=== PATIENT | male | born 1955 | race Caucasian/White ===

== ENCOUNTER 2017-03-03 23:05 | Inpatient (IN) | payer SELFPAY ==
[2017-03-03 23:07] VITALS: BP 162/105; PULSE 98; RESP 16; TEMP 37.7; O2SAT 93; BMI 35.6
--- NOTE | 2017-03-03 23:09 | EKG12_ITS ---
Test Reason : ABD PAIN Blood Pressure : / mmHG Vent. Rate : 093 BPM Atrial Rate : 093 BPM P-R Int : 168 ms QRS Dur : 092 ms QT Int : 360 ms P-R-T Axes : 023 -50 045 degrees QTc Int : 447 ms Normal sinus rhythm Left anterior fascicular block Abnormal ECG Confirmed by YIN LONGORIA ([id number]), editorial manager LAYLA BRIAN ([id number] on 03/05/2017 11:34:41 AM Referred By: EMILY Confirmed By:YIN LONGORIA
--- NOTE | 2017-03-03 23:09 | RAD_ITS ---
STUDY: X-RAY CHEST REASON FOR EXAM: Male, 61 years old. Shortness of breath TECHNIQUE: Single AP portable view of the chest. COMPARISON: 09/16/2016. 04/24/2016. FINDINGS: There are superimposed monitor leads. There is very shallow inspiratory level and underpenetration, compression of basilar parenchyma with a linear basilar density the left lung, new since previous exam. There is no demonstrated pleural abnormality. Normal size heart. Normal mediastinum and lily. Normal visualized pulmonary arteries. Normal visualized aortic arch and descending thoracic aorta. There are diffuse degenerative changes of the visualized thoracic spine. There is degenerative osteoarthritis of the bilateral shoulders. Resorption of the distal right clavicle is stable. There is no demonstrated abnormality of the visualized soft tissue structures of the upper abdomen. RAD/Chest 1 View (Portable) IMPRESSION: Atelectasis or pneumonia in the left base exaggerated by low lung volume. Electronically Signed: Lillian Richards MD at 0:24 EST , Service support ,
[2017-03-03 23:10] VITALS: O2SAT 95
--- NOTE | 2017-03-03 23:11 | ED.VISSUMM ---
- ER Visit Summary Date of Service: 03/03/17 Chief Complaint: Fever, abdominal pain, cough History of Present Illness: The patient is a 61 M with multiple comorbidities. I actually saw this patient yesterday. At that time, he was complaining of some mild right flank pain that radiated into his right upper quadrant. The patient was unable to tolerate a CT of his abdomen. His labs are unremarkable. He did have some trace ketones in his urine. The patient was given fluids and analgesics with marked improvement of his symptoms. He was able to ambulate without issue. I did obtain plain films of the spine at that time which showed no acute process. The pain was more radicular and I did feel is likely coming from his back. The patient was treated with stool softeners and antispasmodics. The patient does have a history of chronic low back pain and is on methadone. He also has a history of diabetes. Over the past 24 hours, the patient symptoms worsened. He describes some pain now in his right upper back. He is also had cough with increasing shortness of breath. He did have a fever today and was more lethargic. He states that the pain comes in waves. Physical Examination: Vital signs reviewed General: Well-nourished, well-developed Head: Normocephalic, atraumatic Eyes: Pupils equal and reactive, extraocular muscles intact Neck, supple, no lymphadenopathy Heart: Regular rate and rhythm Respiratory: Diminished in the right base and left base Abdomen: Soft, nontender, nondistended, no peritoneal signs, cannot re-create any pain with deep palpation Back: Nontender Extremities: Nontender, no edema, no cords Skin: Normal color no rash Neuro: Alert and oriented, no focal or lateralizing deficits Test Results: [] Emergency Department Course and Treatment: I cannot re-create any pain on the patient's examination. He now has a fever and has had some increasing lethargy. He does have diminished lung sounds in both bases, left greater than right. The patient was sent for CT of his abdomen which she still cannot tolerate. With fluids and analgesics pain is markedly improved. I have reevaluated his abdomen multiple times and he has no focal tenderness. I did send him for some plain films. There is no evidence of acute obstruction. There is potential mild ileus of the small bowel. He does have significant constipation. His chest x-ray does show pneumonia in the left base. With his fever, cough, and dyspnea I do feel that this is likely the major cause of his symptoms. He is on methadone with underlying constipation. Screening labs were obtained. The patient's blood gas is unremarkable. His lab work does show a mild leukocytosis. Blood cultures were obtained. The patient will be covered with Levaquin. I do for the patient requires admission given his pneumonia and confusion. Patient will be discussed with the hospitalist. Treatment Plan: [] Disposition: Admission Impression: 1. Left lower lobe pneumonia 2. Constipation 3. Abdominal pain This note was generated with [employer] dictation software. It may contain incorrect words, spelling, and punctuation that were not noted in review of the chart prior to signing ED Disposition - Plan for ED Patient: Chief Complaint: Abd Pain Referrals: Luis Starr DO [Primary Care Provider] -
[2017-03-03] MEDS: Acetaminophen 500 MG Tablet 1000 MG PO (23:20)
[2017-03-03] MEDS: 0.9% Normal Saline 1,000 ML 150 ML IV (23:20)
[2017-03-03] MEDS: 0.9% Normal Saline 1,000 ML 999 ML IV (23:23)
[2017-03-03 23:31] LABS: Allen Test POS; Base Excess 2 mmol/L (-2 to +2); Bicarbonate 26.4 mmol/L (22-26); Blood Gas Specimen Type ART; O2 Delivery Device Nasal Can; PO2 68 mmHG (75-100); SITE R Radial; SO2 94 % (95-99); Total Carbon Dioxide 28 mmol/L; pH 7.43 (7.35-7.45)
[2017-03-03 23:37] LABS: Absolute Lymphocyte Count 1.55 X10^3/ul (0.83-4.51); Basophil# 0.03 X10^3/uL; Basophil% 0.2 % (0-1); Eosinophil# 0.09 X10^3/uL; Eosinophils% 0.7 % (0-5); Hemoglobin 16.7 g/dl (13.0-16.5); Lymphocyte # 1.55 X10^3/ul (4.0); Lymphocyte % 12.7 % (19-41); Mean Corp Hgb Conc 36.3 g/gl (32-36); Mean Corpuscular Hgb 34.2 pg (27.0-32.0); Mean Corpuscular Volume 94.3 fL (80-94); Mean Platelet Vol. 11.7 fl (6.2-12.0); Monocyte% 12.3 % (0-10); Neutrophil # 9.01 X10^3/uL (2.7-7.7); Neutrophil % 73.8 % (47-70); Platelet Count 208 K/mm3 (150-450); RBC Distribution Width CV 12.5 % (11.6-14.6); RBC Distribution Width SD 42.2 fl (35.1-43.9); Red Blood Count 4.88 M/mm3 (4.6-6.2); White Blood Count 12.2 K/mm3 (4.4-11.0)
[2017-03-03 23:40] LABS: International Normalized Ratio 1.1; Prothrombin Time (Protime)PT. 13.6 SECONDS (11.7-14.9)
[2017-03-03 23:41] LABS: Partial Thromboplast Time 27.9 Seconds (24.1-36.2)
[2017-03-03 23:47] LABS: POSITIVE COUNT NO; POSITIVE DIFFERENTIAL NO; POSITIVE MORPHOLOGY NO
[2017-03-03] MEDS: HYDROmorphone 1 MG/ML Syringe IV (23:47)
[2017-03-03 23:53] LABS: ALB/GLOB Ratio 0.7 RATIO (0.9-2.4); AST(SGOT) 11 U/L (15-37); Alanine Aminotransfer ALT/SGPT 20 U/L (12-78); Albumin, Serum 3.2 g/dL (3.4-5.0); Alkaline Phosphatase 115 U/L (45-117); Anion Gap 6 (5-15); BUN 17 mg/dL (7-18); BUN/Creat Ratio 17.7 RATIO (10-20); Calcium,Total 9.3 mg/dL (8.5-10.1); Chloride 94 mmol/L (98-107); Creatinine, Serum 0.96 mg/dL (0.70-1.30); EST Glomerular Filtration Rate 84 mL/min (>60); Est Glom Filt Rate - Afr Amer 102 mL/min (>60); Estimated Creatinine Clearance 80.81 ml/min; Globulin 4.5 g/dL (2.2-4.2); Glucose 225 mg/dL (70-110); Protein, Total 7.7 g/dL (6.4-8.2); Sodium Level 129 mmol/L (136-145)
[2017-03-04] VITALS (13 sets, daily range): BP systolic 117–161; BP diastolic 73–102; PULSE 57–90; RESP 12–24; TEMP 36.4–36.8; O2SAT 91–98; BMI 34.4
--- NOTE | 2017-03-04 00:15 | RAD_ITS ---
STUDY: X-RAY - ABDOMEN/PELVIS REASON FOR EXAM: Male, 61 years old. Abdominal pain. TECHNIQUE: 2 upright views of the abdomen. Patient unable to lay down. COMPARISON: Chest x-ray 09/16/2016 FINDINGS: New platelike atelectatic changes left base, compression of basilar parenchyma with shallow intervertebral level. Mild small bowel air distention mid and left abdomen. Retained fecal material in the right colon. There is no demonstrated free abdominal air. Normal soft tissue structures. There are diffuse degenerative changes of the visualized lumbar spine. RAD/Abdomen Single View IMPRESSION: Small bowel ileus suspected. Electronically Signed: Lillian Richards MD at 1:29 EST , Service support ,
[2017-03-04] MEDS: 0.9% Normal Saline 1,000 ML 999 ML IV (01:13)
[2017-03-04 01:29] LABS: Bacteria 0 SEEN /hpf (None Seen); Mucous, Urine 0 SEEN /hpf (<or=2+); White Blood Cells 0 SEEN /hpf (0-5)
[2017-03-04 01:36] LABS: Color, Urine Yellow (Yellow); Glucose, Dipstick 1000 mg/dl (Normal); Ketone-Dipstick 5 mg/dl (Negative); Leukocyte Esterase-Dipstick Negative /ul (Negative); Nitrite-Dipstick Negative (Negative); Occult Blood-Urine 10 /ul (Negative); Protein-Dipstick 100 mg/dl (Negative); Urine Bilirubin Dipstick Negative (Negative); Urine Clarity Sl. Cloudy (Clear); Urine Urobilinogen Normal (Normal)
[2017-03-04 01:55] LABS: Red Blood Cells-Urine 0-5 SEEN /hpf (0-5); Squamous Epithelial Cells - UA 0-5 SEEN /hpf (0-5)
[2017-03-04 03:27] LABS: Reflex Lactate? Y
--- NOTE | 2017-03-04 04:05 | PCM.HP.STD ---
Problem List (1) Pneumonia Status: Acute Qualifiers: Pneumonia type: due to unspecified organism Laterality: left Lung location: lower lobe of lung Qualified Code(s): J18.1 - Lobar pneumonia, unspecified organism (2) Ileus Status: Acute (3) Cardiomegaly Status: Chronic (4) DM type 2 (diabetes mellitus, type 2) Status: Chronic Qualifiers: Diabetes mellitus complication status: with unspecified complications Diabetes mellitus assisted insulin use: with superintendent terminal use Qualified Code(s): E11.8 - Type 2 diabetes mellitus with unspecified complications; Z79.4 - group home (current) use of insulin (5) HTN (hypertension) Status: Chronic Qualifiers: Hypertension type: essential hypertension Qualified Code(s): I10 - Essential (primary) hypertension (6) Tobacco use disorder Status: Chronic (7) Opiate dependence Status: Chronic Qualifiers: Substance use status: with unspecified opioid-induced disorder Qualified Code(s): F11.29 - Opioid dependence with unspecified opioid-induced disorder (8) HLD (hyperlipidemia) Status: Chronic Qualifiers: Hyperlipidemia type: unspecified Qualified Code(s): E78.5 - Hyperlipidemia, unspecified History of Present Illness Date of Admission: 03/04/17 Chief Complaint: Cough, dyspnea, fever, wheezing, abdominal pain The patient is a 61 y/o M w/ PMHx: Cardiomegaly, Obesity, Diabetes mellitus type II, HTN, HLD, Tobacco use, Opiate dependence w/ chronic back pain, Anxiety who presents to the [facility] ED on 03/04/17 w/ history of ongoing increasing cough, weakness, fever and chills, myalgias as well as generalized abdominal discomfort for the last several days. He was seen in the evening prior secondary to abdominal discomfort and at that time following workup was diagnosed with constipation, ileus and given mag citrate with discharge to home; however, his abdominal discomfort continued although noted ongoing flatus and no marked nausea or emesis concurrently. In the emergency room workup included T1 100, heart rate 98, BP initially 162/105--> 134/80, respiratory rate 16, 93% on room air, CBC w/ WBC 12.2, Hgb 16.7, Plts 208 with L shift, normal coags, ABG w/ pH 7.43, bicarb 26.4, O2 saturation 94%, PCO2 40, PO2 68, CMP with sodium 129, chloride 94, glucose 225, lactic acid 2, urinalysis unremarkable, acetone level negative, UA without evidence of acute infection, chest x-ray with left lower lobe infiltrate, KUB with small bowel ileus. In the emergency room patient administered normal saline, Tylenol, Dilaudid, Levaquin. Past Medical History Past Medical History (Chronic Problems): Chronic Problems Cardiomegaly (Chronic) DM type 2 (diabetes mellitus, type 2) (Chronic) HTN (hypertension) (Chronic) Tobacco use disorder (Chronic) Opiate dependence (Chronic) Pericardial effusion (Chronic) HLD (hyperlipidemia) (Chronic) Allergies No Known Allergies Allergy (Verified 03/03/17 23:13) Home Medications: Ambulatory Orders Medication Instructions Recorded Hydrochlorothiazide [Hctz] 25 mg PO DAILY 02/18/14 Insulin Regular, Human [Novolin R] See Protocol SC TIDCM 02/18/15 Propranolol HCl [Inderal (Beta 40 mg PO BID 02/18/15 Laura)] Lisinopril [Zestril] 40 mg PO DAILY 04/23/16 Methadone HCl 30 mg PO Q8H PRN PRN 04/23/16 Nitroglycerin [Nitrostat] 0.4 mg SL PRN PRN 04/23/16 ALPRAZolam [Xanax] 0.5 mg PO BID PRN PRN 09/16/16 Insulin Detemir [Levemir FlexPen] 20 units SC QHS #3 pen 09/17/16 Cyclobenzaprine [Flexeril] 10 mg PO TID PRN #20 tab 03/02/17 Surgical History: - - Back surgery, cholecystectomy, appendectomy. Psychiatric History: Anxiety Lives: Spouse/ Significant Other Smoking Status: Current every day smoker - Approximately one half pack per day. Tobacco Use: Cigarettes Alcohol: None Drugs: None - *Family History Maternal History Items: Diabetes, Hypertension Paternal History Items: Diabetes, Hypertension Review of Systems Constitutional: Reports: Anorexia, Chills, Fever, Malaise, Weakness, Fatigue. Denies: Weight Change HEENT: Reports: Head Aches, Nasal Congestion, Sinus Congestion, Sinus Drainage, Sore Throat Cardiovascular: Denies: Chest Pain, Palpitations Respiratory: Reports: Cough, Shortness of Breath, Shortness of breath at rest, Shortness of breath upon exertion, Sputum production Gastrointestinal: Reports: Abdominal Pain, Constipation. Denies: Nausea, Vomiting Genitourinary: Denies: Dysuria Musculoskeletal: Denies: Joint Pain, Joint Tenderness Skin: Denies: Rash, Wounds Neurological: Denies: Numbness, Tingling, Focal weakness Psychiatric: Denies: Anxiety, Depression, Homicidal Ideations, Suicidal Ideations Hematologic/ Lymphatic: Denies: Easy Bruising, Easy Bleeding VTE Information - Inpt Only VTE Present on Admission: No VTE Mechan Device Prophylaxis: SCD's VTE Pharm Prophylaxis ordered?: Yes Patient Problems: Active and Suspected Problems Pneumonia (Acute) Ileus (Acute) Subjective: Seated upright in the ED chair, NAD, fatigued appearance. Objective: Physical Examination: General: awake, alert, oriented x 3 and cooperative, seated upright in the ED bedside chair, in no apparent distress. Skin: normal color, turgor, no icterus, cyanosis. HEENT: AT/NC, EOMI, PERRLA, dry MM, no carotid bruits or JVD noted. Lungs: Mildly coarse BS BL, R >L, > bases, mild effort, no wheezing. Heart: Regular rate and rhythm; no gallop, rub audible. Abdomen: soft, mild generalized discomfort to palpation, mild to moderately distended, tympanitic, hyperactive HS, difficult to assess HSM given habitus and acute presentation. Extremities: no cyanosis, clubbing, or edema. Neurological: patient awake, alert, oriented x 3; cognitive function intact; pupils equally reactive to light and accomodation; cranial nerves II-XII grossly normal, moving all 4 extremities, no focal deficits, strength moderately to severely globally decreased secondary to acute presentation. Psychiatric: affect appears flat, fatigued, no acute evidence of depressive or anxiety feelings. - Physical Exam Vital Signs Temp Pulse Resp BP Pulse Ox 98.3 F 78 17 134/80 H 91 03/04/17 02:25 03/04/17 02:25 03/04/17 02:25 03/04/17 02:25 03/04/17 02:25 Oxygen Flow Rate 2 Oxygen Delivery Method Nasal Cannula Weight: 240 lb 15.444 oz Body Mass Index (BMI) 35.6 Finger Stick Blood Glucose 240 Laboratory Tests Past 24 Hrs 03/03/17 03/03/17 03/03/17 23:20 23:20 23:20 WBC 12.2 H RBC 4.88 Hgb 16.7 H Hct 46.0 MCV 94.3 H MCH 34.2 H MCHC 36.3 H RDW 12.5 RDW Differential 42.2 Plt Count 208 MPV 11.7 Immature Gran % (Auto) 0.300 Neut % (Auto) 73.8 H Lymph % (Auto) 12.7 L [place]eman % (Auto) 12.3 H Eos % (Auto) 0.7 Baso % (Auto) 0.2 Absolute Neuts (auto) 9.0 H Absolute Lymphs (auto) 1.55 Total Counted Not Reportable PT 13.6 INR 1.1 APTT 27.9 Specimen Type Sample Site pH Bicarbonate Actual POC Total CO2 Base Excess O2 Saturation ABG pCO2 ABG pO2 Bradley Test O2 Delivery Device Liter Flow Blood Gas Notified Whom Sodium 129 L Potassium 4.0 Chloride 94 L Carbon Dioxide 29.0 Anion Gap 6 BUN 17 Creatinine 0.96 Estim Creat Clear Calc 80.81 Est GFR (MDRD) Af Amer 102 Est GFR (MDRD) Non-Af 84 BUN/Creatinine Ratio 17.7 Glucose 225 H Lactic Acid Calcium 9.3 Total Bilirubin 0.60 AST 11 L ALT 20 Alkaline Phosphatase 115 Total Protein 7.7 Albumin 3.2 L Globulin 4.5 H Albumin/Globulin Ratio 0.7 L Urine Color Urine Clarity Urine pH Ur Specific [place] Urine Protein Urine Glucose (UA) Urine Ketones Urine Occult Blood Urine Nitrite Urine Bilirubin Urine Urobilinogen Ur Leukocyte Esterase Urine RBC Urine WBC Ur Squamous Epith Cells Urine Bacteria Urine Mucus Acetone Level 03/03/17 03/03/17 03/03/17 23:20 23:20 23:25 WBC RBC Hgb Hct MCV MCH MCHC RDW RDW Differential Plt Count MPV Immature Gran % (Auto) Neut % (Auto) Lymph % (Auto) [place] % (Auto) Eos % (Auto) Baso % (Auto) Absolute Neuts (auto) Absolute Lymphs (auto) Total Counted PT INR APTT Specimen Type ART Sample Site R Radial pH 7.43 Bicarbonate Actual 26.4 H POC Total CO2 28 Base Excess 2 O2 Saturation 94 L ABG pCO2 40.0 ABG pO2 68 L Bradley Test POS O2 Delivery Device Nasal Can Liter Flow 2.0 Blood Gas Notified Whom ED Sodium Potassium Chloride Carbon Dioxide Anion Gap BUN Creatinine Estim Creat Clear Calc Est GFR (MDRD) Af Amer Est GFR (MDRD) Non-Af BUN/Creatinine Ratio Glucose Lactic Acid 2.0 Calcium Total Bilirubin AST ALT Alkaline Phosphatase Total Protein Albumin Globulin Albumin/Globulin Ratio Urine Color Urine Clarity Urine pH Ur Specific [place] Urine Protein Urine Glucose (UA) Urine Ketones Urine Occult Blood Urine Nitrite Urine Bilirubin Urine Urobilinogen Ur Leukocyte Esterase Urine RBC Urine WBC Ur Squamous Epith Cells Urine Bacteria Urine Mucus Acetone Level NEGATIVE 03/04/17 01:15 WBC RBC Hgb Hct MCV MCH MCHC RDW RDW Differential Plt Count MPV Immature Gran % (Auto) Neut % (Auto) Lymph % (Auto) [place] % (Auto) Eos % (Auto) Baso % (Auto) Absolute Neuts (auto) Absolute Lymphs (auto) Total Counted PT INR APTT Specimen Type Sample Site pH Bicarbonate Actual POC Total CO2 Base Excess O2 Saturation ABG pCO2 ABG pO2 Bradley Test O2 Delivery Device Liter Flow Blood Gas Notified Whom Sodium Potassium Chloride Carbon Dioxide Anion Gap BUN Creatinine Estim Creat Clear Calc Est GFR (MDRD) Af Amer Est GFR (MDRD) Non-Af BUN/Creatinine Ratio Glucose Lactic Acid Calcium Total Bilirubin AST ALT Alkaline Phosphatase Total Protein Albumin Globulin Albumin/Globulin Ratio Urine Color Yellow Urine Clarity Sl. Cloudy Urine pH 6.0 Ur Specific [place] 1.020 Urine Protein 100 H Urine Glucose (UA) 1000 H Urine Ketones 5 H Urine Occult Blood 10 H Urine Nitrite Negative Urine Bilirubin Negative Urine Urobilinogen Normal Ur Leukocyte Esterase Negative Urine RBC 0-5 SEEN Urine WBC 0 SEEN Ur Squamous Epith Cells 0-5 SEEN Urine Bacteria 0 SEEN Urine Mucus 0 SEEN Acetone Level Assessment/Plan Active and Suspected Problems Pneumonia (Acute) Ileus (Acute) The patient is a 61 y/o M w/ PMHx: Cardiomegaly, Obesity, Diabetes mellitus type II, HTN, HLD, Tobacco use, Opiate dependence w/ chronic back pain, Anxiety who presents to the [facility] ED on 03/04/17 w/ history of ongoing increasing cough, weakness, fever and chills, myalgias as well as generalized abdominal discomfort for the last several days. He was seen in the evening prior secondary to abdominal discomfort and at that time following workup was diagnosed with constipation, ileus and given mag citrate with discharge to home. (1) Community Acquired Pneumonia: CXR in the ED w/ LLL infiltrate. Will admit to [facility], maintain on oxygen with wean as tolerated to room air, continue ATC duonebs, PRN albuterol, maintained on IV Rocephin and Azithromycin, HOB, IS parameters w/ pending sputum cultures and urine antigens. Bld cx x 2 obtained in the ED. Will obtain AM oxygenation trial for discharge planning. (2) Abdominal Pain secondary to Ileus: Recent evaluation day prior w/ constipation, ileus, administered mag citrate upon discharge. Repeat KUB w/ evidence of ileus, continue to closely monitor, maintain NPO status with bowel rest with continued aggressive bowel regimen. Advance diet as able. (3) Hypertension: Continue home regimen including hydrochlorothiazide, lisinopril, propranolol, PRN hydralazine. (4) Hyperlipidemia: Not on regimen, defer to outpatient. (5) Diabetes mellitus type II: Hold oral home regimen, continue home insulin regimen, NPO status as noted, accu checks w/ ISS. (6) Tobacco Abuse: Encouraged cessation, inpatient consultation per RT, NR if desired. (7) Chronic Pain Syndrome: Continue home methadone regimen, PRN IV Dilaudid. (8) Obesity: Weight loss and lifestyle changes encouraged. (9) DVT prophylaxis: SCDs, lovenox. Code Visit Inpatient E&M: 51188 Init Hosp L3
[2017-03-04 05:55] LABS: Bedside Glucose 209 mg/dL (70-110)
[2017-03-04 06:02] LABS: Lactic Acid 0.9 mmol/L (0.4-2.0)
[2017-03-04] MEDS: Ceftriaxone 1 GM/50 ML BAG IV (06:03)
[2017-03-04 06:07] LABS: Anion Gap 8 (5-15); BUN 17 mg/dL (7-18); BUN/Creat Ratio 23.3 RATIO (10-20); Calcium,Total 7.8 mg/dL (8.5-10.1); Chloride 99 mmol/L (98-107); Creatinine, Serum 0.73 mg/dL (0.70-1.30); EST Glomerular Filtration Rate 116 mL/min (>60); Est Glom Filt Rate - Afr Amer 140 mL/min (>60); Estimated Creatinine Clearance 106.27 ml/min; Glucose 206 mg/dL (70-110); Potassium 4.3 mmol/L (3.5-5.1); Sodium Level 130 mmol/L (136-145)
[2017-03-04] MEDS: 0.9% Normal Saline 1,000 ML 150 ML IV ×2 (06:07→12:09)
[2017-03-04] MEDS: oxyCODONE 5 MG Tablet 10 MG PO (06:33)
[2017-03-04] MEDS: Magnesium Hydroxide 30 ML UDC PO (06:36)
[2017-03-04] MEDS: Ipratropium/Albuterol Sulfate 3 ML AMPUL.NEB INHALATION ×4 (06:47→23:55)
[2017-03-04 08:23] LABS: Absolute Lymphocyte Count 1.52 X10^3/ul (0.83-4.51); Absolute Neutrophil Count 7.7 X10^3/uL (2.0-7.7); Basophil# 0.04 X10^3/uL; Basophil% 0.4 % (0-1); Eosinophil# 0.08 X10^3/uL; Eosinophils% 0.7 % (0-5); Hematocrit 41.9 % (40-54); Hemoglobin 14.4 g/dl (13.0-16.5); Lymphocyte # 1.52 X10^3/ul (4.0); Lymphocyte % 13.9 % (19-41); Mean Corp Hgb Conc 34.4 g/gl (32-36); Mean Corpuscular Volume 95.9 fL (80-94); Mean Platelet Vol. 11.9 fl (6.2-12.0); Monocyte# 1.61 X10^3/uL; Monocyte% 14.7 % (0-10); Neutrophil # 7.66 X10^3/uL (2.7-7.7); Platelet Count 185 K/mm3 (150-450); RBC Distribution Width CV 12.7 % (11.6-14.6); RBC Distribution Width SD 42.9 fl (35.1-43.9); Red Blood Count 4.37 M/mm3 (4.6-6.2); White Blood Count 10.9 K/mm3 (4.4-11.0)
[2017-03-04 08:32] LABS: Differential Indicated SCAN CRITERIA MET; POSITIVE COUNT NO; POSITIVE DIFFERENTIAL YES; POSITIVE MORPHOLOGY NO
--- NOTE | 2017-03-04 09:09 | CASEMGMT ---
Social Work Note Face to face with the pt and his , Mireille. Introduce self and role at [facility]. The pt reports that he lives with his and denies access issues. Denies access issues and claims to be independent with ADL's. Pt does confirm that he is uninsured. Reports to work part-time and makes about $700/month. Denies that he has ever applied for Medicaid. Educate both the pt and his to the process of applying as well as the fact that Medicaid is retroactive for 30 days once processed from the day the application was submitted. Understanding expressed and provided pt and his with an application to review and complete. Made aware that SW is available if additional needs arise. Pt's PCP is Dr. Luis Starr and his pharmacy of choice is [facility]. No additional discharge needs anticipated. SW to continue to follow and assist as needed. Plan: Home with no anticipated d/c needs. CHRIS PerezW
[2017-03-04] MEDS: HYDROmorphone 1 MG/ML Syringe IV ×2 (09:48→17:55)
[2017-03-04] MEDS: guaiFENesin 1,200 MG Tablet 1200 MG PO ×2 (09:52→21:50)
[2017-03-04] MEDS: Famotidine 20 MG Tablet PO ×2 (09:53→21:50)
[2017-03-04] MEDS: Polyethylene Glycol 3350 17 GM PACKET PO (09:53)
[2017-03-04] MEDS: Enoxaparin 40 MG/0.4 ML Syringe SC (09:53)
[2017-03-04] MEDS: Lisinopril 40 MG Tablet PO (09:53)
[2017-03-04] MEDS: Senna/Docusate Sodium 1 Tablet 2 TABLET PO (09:53)
[2017-03-04] MEDS: Propranolol 40 MG Tablet PO ×2 (09:53→21:50)
[2017-03-04] MEDS: hydroCHLOROthiazide 25 MG Tablet PO (09:53)
--- NOTE | 2017-03-04 10:44 | PCM.PN.HOSP ---
Patient Problems: Active and Suspected Problems Ileus (Acute) Subjective: Abdominal pain improved. Patient having flatus. 2 days. Patient has history of spinal surgeries in 1991 in 1997 up at [place]. Patient is currently seeing a spine doctor, a Dr. Rob, up in [facility]. Patient is still established with him as they previously had resided up in [place]. Vitals/I&O's: Vital Signs Temp Pulse Resp BP Pulse Ox 36.7 C 81 12 137/80 H 95 03/04/17 09:08 03/04/17 09:57 03/04/17 09:57 03/04/17 09:08 03/04/17 09:57 Oxygen Flow Rate 2 Oxygen Delivery Method Room Air Weight: 105.8 kg Body Mass Index (BMI) 34.4 Intake and Output for Last 24 Hours 03/02/17 03/03/17 03/04/17 23:59 23:59 23:59 Intake Total 97 / 97 Output Total 0 / 0 Balance 97 / 97 General: Alert, Cooperative, No apparent distress HEENT: Atraumatic, Normocephalic Neck: No Nodes, Thyroid Normal Size and Texture Lungs: Clear to auscultation, Normal air movement, No rhonchi, No wheeze Cardiovascular: Regular rate, Regular Rhythm, Normal S1, Normal S2 Abdomen: Non Tender, Non-Distended, Hypoactive Bowel Sounds, Obese Extremities: No edema, No Calf Tenderness Skin: No rashes, No breakdown Musculoskeletal: - - No spinal point tenderness. Patient did have some reproducible paraspinal tenderness on the right and left in the lumbar region. Neurological: Motor Exam 5/5 strength throughout, Muscle tone normal, Sensory exam intact to light touch and pain Psych/Mental Status: Normal Affect, Appropriate, Anxious Laboratory Results 03/04/17 05:34: Lactic Acid 0.9 03/04/17 05:34: Sodium 130 L, Potassium 4.3, Chloride 99, Carbon Dioxide 23.0, Anion Gap 8, BUN 17, Creatinine 0.73, Estim Creat Clear Calc 106.27, Est GFR (MDRD) Af Amer 140, Est GFR (MDRD) Non-Af 116, BUN/Creatinine Ratio 23.3 H, Glucose 206 H, Calcium 7.8 L, Magnesium 2.0 03/04/17 05:34: Hemoglobin A1c Pending 03/04/17 05:34: WBC 10.9, RBC 4.37 L, Hgb 14.4, Hct 41.9, MCV 95.9 H, MCH 33.0 H, MCHC 34.4, RDW 12.7, RDW Differential 42.9, Plt Count 185, MPV 11.9, Immature Gran % (Auto) 0.300, Neut % (Auto) 70.0, Lymph % (Auto) 13.9 L, [place] % (Auto) 14.7 H, Eos % (Auto) 0.7, Baso % (Auto) 0.4, Absolute Neuts (auto) 7.7, Absolute Lymphs (auto) 1.52, Total Counted Not Reportable, Differential Comment COMMENT 03/04/17 05:51: POC Glucose 209 H Current Medications Acetaminophen (Tylenol) 650 mg PO Q4H PRN PRN PRN Reason: FEVER Acetaminophen (Tylenol) 650 mg PO Q6H PRN PRN PRN Reason: Mild Pain (scale 0-3)/T>100.7 Al Hydroxide/Mg Hydroxide (Mylanta Ii) 30 ml PO Q6H PRN PRN PRN Reason: Gastric burning Albuterol Sulfate (Ventolin Aerosols) 2.5 mg INHALATION Q2H PRN PRN PRN Reason: SHORTNESS OF BREATH Albuterol/Ipratropium (Duoneb) 3 ml INHALATION Q4H.RT [facility] Last Admin: 03/04/17 06:47 Dose: 3 ml Alprazolam (Xanax) 0.5 mg PO BID PRN PRN PRN Reason: ANXIETY Bisacodyl (Dulcolax) 5 mg PO DAILY PRN PRN PRN Reason: Constipation Cyclobenzaprine HCl (Flexeril) 10 mg PO TID PRN PRN PRN Reason: MUSCLE SPASM Dextrose (D50w Syringe) 0 gm IV X1 PRN; Protocol PRN Reason: Hypoglycemia Enoxaparin Sodium (Lovenox) 40 mg SC DAILY@1000 [facility] Last Admin: 03/04/17 09:53 Dose: 40 mg Famotidine (Pepcid) 20 mg PO BID [facility] Last Admin: 03/04/17 09:53 Dose: 20 mg Glucagon () 1 mg IM .X1 PRN PRN Reason: Hypoglycemia Guaifenesin (Mucinex) 1,200 mg PO BID [facility] Last Admin: 03/04/17 09:52 Dose: 1,200 mg Hydrochlorothiazide (Hctz) 25 mg PO DAILY [facility] Last Admin: 03/04/17 09:53 Dose: 25 mg Hydromorphone HCl (Dilaudid) 1 mg IV Q4H PRN PRN PRN Reason: SEVERE PAIN (6-10/10) Last Admin: 03/04/17 09:48 Dose: 1 mg Sodium Chloride () 1,000 mls @ 150 mls/hr IV .Q6H40M [facility] Last Admin: 03/04/17 06:07 Dose: 150 mls/hr Insulin Aspart (Novolog Flexpen ([facility])) 0 units SC Q6 JORGE PRN Reason: Protocol Last Admin: 03/04/17 06:08 Dose: 2 units Insulin Detemir (Levemir ([facility])) 20 units SC QHS [facility] Lisinopril (Zestril) 40 mg PO DAILY [facility] Last Admin: 03/04/17 09:53 Dose: 40 mg Magnesium Hydroxide (Milk Of Magnesia) 30 ml PO DAILY PRN PRN PRN Reason: Constipation Last Admin: 03/04/17 06:36 Dose: 30 ml Methadone HCl () 30 mg PO Q8H PRN PRN PRN Reason: PAIN Nicotine (Nicoderm Cq ([facility])) 14 mg TRANSDERM. DAILY [facility] Last Admin: 03/04/17 09:58 Dose: Not Given Ondansetron HCl (Zofran) 4 mg IV Q8H PRN PRN PRN Reason: NAUSEA Oxycodone HCl (Oxyir) 10 mg PO Q4H PRN PRN PRN Reason: Moderate Pain (pain scale 4-5) Last Admin: 03/04/17 06:33 Dose: 10 mg Polyethylene Glycol (Miralax) 17 gm PO DAILY [facility] Last Admin: 03/04/17 09:53 Dose: 17 gm Promethazine HCl (Phenergan (Ll)) 12.5 mg IV Q6H PRN PRN PRN Reason: NAUSEA/VOMITING Propranolol HCl (Inderal) 40 mg PO BID [facility] Last Admin: 03/04/17 09:53 Dose: 40 mg Senna/Docusate Sodium (Senokot-S, Milady-Colace) 2 tablet PO DAILY [facility] Last Admin: 03/04/17 09:53 Dose: 2 tablet Sodium Chloride () 5 - 30 ml IV UD PRN PRN Reason: SALINE FLUSH Assessment/Plan Active and Suspected Problems Ileus (Acute) 1. Ileus Clinically improved at this time. We will advance diet and see how the patient responds. 2. Acute on chronic back pain Seems more musculoskeletal. Patient is on chronic pain management with methadone through Dr. Rob in [facility]. Patient states that he is unable to lie flat even for a CAT scan. Told patient that he does not not have any red flags to me at this time and unfortunately, this facility, we do have the backup to do conscious sedation for an MRI. Being that my threshold for something very severe in his back is low at this time feel it is necessary he be transferred to another facility for spinal surgery or neurosurgery. We will await physical and occupational therapy evaluation to see if patient would require additional therapy needs. I reviewed the patient's OARRS, and it appears that he has been receiving his methadone through Drs. Juan Daniel Gillespie and Jeffrey Gould. 3. Left lower lobe atelectasis I personally reviewed the chest x-ray did not see any obvious infiltrate. Atelectasis may explain his fever as well. The patient overall looks well. 4. Diabetes mellitus type 2 Continue with Levemir. 5. DVT prophylaxis with Lovenox. Code Visit Inpatient E&M: [id number] [facility] Hosp L3
--- NOTE | 2017-03-04 10:54 | PN_ITS ---
Patient Problems: Active and Suspected Problems Ileus (Acute) Subjective: Abdominal pain improved. Patient having flatus. 2 days. Patient has history of spinal surgeries in 1991 in 1997 up at [place]. Patient is currently seeing a spine doctor, a Dr. Rob, up in [facility]. Patient is still established with him as they previously had resided up in [place]. Vitals/I&O's: Vital Signs Temp Pulse Resp BP Pulse Ox 36.7 C 81 12 137/80 H 95 03/04/17 09:08 03/04/17 09:57 03/04/17 09:57 03/04/17 09:08 03/04/17 09:57 Oxygen Flow Rate 2 Oxygen Delivery Method Room Air Weight: 105.8 kg Body Mass Index (BMI) 34.4 Intake and Output for Last 24 Hours 03/02/17 03/03/17 03/04/17 23:59 23:59 23:59 Intake Total 97 / 97 Output Total 0 / 0 Balance 97 / 97 General: Alert, Cooperative, No apparent distress HEENT: Atraumatic, Normocephalic Neck: No Nodes, Thyroid Normal Size and Texture Lungs: Clear to auscultation, Normal air movement, No rhonchi, No wheeze Cardiovascular: Regular rate, Regular Rhythm, Normal S1, Normal S2 Abdomen: Non Tender, Non-Distended, Hypoactive Bowel Sounds, Obese Extremities: No edema, No Calf Tenderness Skin: No rashes, No breakdown Musculoskeletal: - - No spinal point tenderness. Patient did have some reproducible paraspinal tenderness on the right and left in the lumbar region. Neurological: Motor Exam 5/5 strength throughout, Muscle tone normal, Sensory exam intact to light touch and pain Psych/Mental Status: Normal Affect, Appropriate, Anxious Laboratory Results 03/04/17 05:34: Lactic Acid 0.9 03/04/17 05:34: Sodium 130 L, Potassium 4.3, Chloride 99, Carbon Dioxide 23.0, Anion Gap 8, BUN 17, Creatinine 0.73, Estim Creat Clear Calc 106.27, Est GFR ( MDRD) Af Amer 140, Est GFR (MDRD) Non-Af 116, BUN/Creatinine Ratio 23.3 H, Glucose 206 H, Calcium 7.8 L, Magnesium 2.0 03/04/17 05:34: Hemoglobin A1c Pending 03/04/17 05:34: WBC 10.9, RBC 4.37 L, Hgb 14.4, Hct 41.9, MCV 95.9 H, MCH 33.0 H , MCHC 34.4, RDW 12.7, RDW Differential 42.9, Plt Count 185, MPV 11.9, Immature Gran % (Auto) 0.300, Neut % (Auto) 70.0, Lymph % (Auto) 13.9 L, [place] % (Auto) 14.7 H, Eos % (Auto) 0.7, Baso % (Auto) 0.4, Absolute Neuts (auto) 7.7, Absolute Lymphs (auto) 1.52, Total Counted Not Reportable, Differential Comment COMMENT 03/04/17 05:51: POC Glucose 209 H Current Medications Acetaminophen (Tylenol) 650 mg PO Q4H PRN PRN PRN Reason: FEVER Acetaminophen (Tylenol) 650 mg PO Q6H PRN PRN PRN Reason: Mild Pain (scale 0-3)/T>100.7 Al Hydroxide/Mg Hydroxide (Mylanta Ii) 30 ml PO Q6H PRN PRN PRN Reason: Gastric burning Albuterol Sulfate (Ventolin Aerosols) 2.5 mg INHALATION Q2H PRN PRN PRN Reason: SHORTNESS OF BREATH Albuterol/Ipratropium (Duoneb) 3 ml INHALATION Q4H.RT [facility] Last Admin: 03/04/17 06:47 Dose: 3 ml Alprazolam (Xanax) 0.5 mg PO BID PRN PRN PRN Reason: ANXIETY Bisacodyl (Dulcolax) 5 mg PO DAILY PRN PRN PRN Reason: Constipation Cyclobenzaprine HCl (Flexeril) 10 mg PO TID PRN PRN PRN Reason: MUSCLE SPASM Dextrose (D50w Syringe) 0 gm IV X1 PRN; Protocol PRN Reason: Hypoglycemia Enoxaparin Sodium (Lovenox) 40 mg SC DAILY@1000 [facility] Last Admin: 03/04/17 09:53 Dose: 40 mg Famotidine (Pepcid) 20 mg PO BID [facility] Last Admin: 03/04/17 09:53 Dose: 20 mg Glucagon () 1 mg IM .X1 PRN PRN Reason: Hypoglycemia Guaifenesin (Mucinex) 1,200 mg PO BID [facility] Last Admin: 03/04/17 09:52 Dose: 1,200 mg Hydrochlorothiazide (Hctz) 25 mg PO DAILY [facility] Last Admin: 03/04/17 09:53 Dose: 25 mg Hydromorphone HCl (Dilaudid) 1 mg IV Q4H PRN PRN PRN Reason: SEVERE PAIN (6-10/10) Last Admin: 03/04/17 09:48 Dose: 1 mg Sodium Chloride () 1,000 mls @ 150 mls/hr IV .Q6H40M [facility] Last Admin: 03/04/17 06:07 Dose: 150 mls/hr Insulin Aspart (Novolog Flexpen ([facility])) 0 units SC Q6 JORGE PRN Reason: Protocol Last Admin: 03/04/17 06:08 Dose: 2 units Insulin Detemir (Levemir ([facility])) 20 units SC QHS [facility] Lisinopril (Zestril) 40 mg PO DAILY [facility] Last Admin: 03/04/17 09:53 Dose: 40 mg Magnesium Hydroxide (Milk Of Magnesia) 30 ml PO DAILY PRN PRN PRN Reason: Constipation Last Admin: 03/04/17 06:36 Dose: 30 ml Methadone HCl () 30 mg PO Q8H PRN PRN PRN Reason: PAIN Nicotine (Nicoderm Cq ([facility])) 14 mg TRANSDERM. DAILY [facility] Last Admin: 03/04/17 09:58 Dose: Not Given Ondansetron HCl (Zofran) 4 mg IV Q8H PRN PRN PRN Reason: NAUSEA Oxycodone HCl (Oxyir) 10 mg PO Q4H PRN PRN PRN Reason: Moderate Pain (pain scale 4-5) Last Admin: 03/04/17 06:33 Dose: 10 mg Polyethylene Glycol (Miralax) 17 gm PO DAILY [facility] Last Admin: 03/04/17 09:53 Dose: 17 gm Promethazine HCl (Phenergan ([facility])) 12.5 mg IV Q6H PRN PRN PRN Reason: NAUSEA/VOMITING Propranolol HCl (Inderal) 40 mg PO BID [facility] Last Admin: 03/04/17 09:53 Dose: 40 mg Senna/Docusate Sodium (Senokot-S, Milady-Colace) 2 tablet PO DAILY [facility] Last Admin: 03/04/17 09:53 Dose: 2 tablet Sodium Chloride () 5 - 30 ml IV UD PRN PRN Reason: SALINE FLUSH Assessment/Plan Active and Suspected Problems Ileus (Acute) 1. Ileus Clinically improved at this time. We will advance diet and see how the patient responds. 2. Acute on chronic back pain Seems more musculoskeletal. Patient is on chronic pain management with methadone through Dr. Rob in [facility]. Patient states that he is unable to lie flat even for a CAT scan. Told patient that he does not not have any red flags to me at this time and unfortunately, this facility, we do have the backup to do conscious sedation for an MRI. Being that my threshold for something very severe in his back is low at this time feel it is necessary he be transferred to another facility for spinal surgery or neurosurgery. We will await physical and occupational therapy evaluation to see if patient would require additional therapy needs. I reviewed the patient's OARRS, and it appears that he has been receiving his methadone through Drs. Juan Daniel Gillespie and Jeffrey Gould. 3. Left lower lobe atelectasis I personally reviewed the chest x-ray did not see any obvious infiltrate. Atelectasis may explain his fever as well. The patient overall looks well. 4. Diabetes mellitus type 2 Continue with Levemir. 5. DVT prophylaxis with Lovenox. Code Visit Inpatient E&M: [id number] [facility] Hosp L3
[2017-03-04 10:58] LABS: Hemoglobin A1c 11.7 % (4.2-6.3)
[2017-03-04] MEDS: Methadone 10 MG Tablet 30 MG PO ×2 (12:08→23:11)
[2017-03-04 12:16] LABS: Bedside Glucose 230 mg/dL (70-110)
[2017-03-04] MEDS: ALPRAZolam 0.5 MG Tablet 1 MG PO (18:14)
[2017-03-04 18:26] LABS: Bedside Glucose 282 mg/dL (70-110)
[2017-03-04] MEDS: Bisacodyl 5 MG Tablet PO (21:50)
[2017-03-04 22:46] LABS: Bedside Glucose 207 mg/dL (70-110)
[2017-03-05] VITALS (12 sets, daily range): BP systolic 88–156; BP diastolic 63–93; PULSE 73–95; RESP 16–20; TEMP 36.4–37.2; O2SAT 94–97
[2017-03-05] MEDS: HYDROmorphone 1 MG/ML Syringe IV ×3 (00:18→20:48)
[2017-03-05] MEDS: 0.9% NaCl Peripheral Flush Adult/Peds IV ×3 (00:18→20:49)
[2017-03-05 00:30] LABS: Bedside Glucose 215 mg/dL (70-110)
[2017-03-05] MEDS: Ipratropium/Albuterol Sulfate 3 ML AMPUL.NEB INHALATION ×6 (04:10→23:27)
[2017-03-05] MEDS: oxyCODONE 5 MG Tablet 10 MG PO ×3 (05:48→18:15)
[2017-03-05] MEDS: Acetaminophen 325 MG Tablet 650 MG PO (05:48)
[2017-03-05 07:01] LABS: Bedside Glucose 153 mg/dL (70-110)
[2017-03-05] MEDS: Methadone 10 MG Tablet 30 MG PO ×2 (07:57→17:05)
[2017-03-05] MEDS: Polyethylene Glycol 3350 17 GM PACKET PO (08:21)
[2017-03-05] MEDS: guaiFENesin 1,200 MG Tablet 1200 MG PO ×2 (08:21→20:49)
[2017-03-05] MEDS: Propranolol 40 MG Tablet PO ×2 (08:21→20:49)
[2017-03-05] MEDS: Senna/Docusate Sodium 1 Tablet 2 TABLET PO (08:21)
[2017-03-05] MEDS: hydroCHLOROthiazide 25 MG Tablet PO (08:21)
[2017-03-05] MEDS: ALPRAZolam 0.5 MG Tablet PO ×2 (08:22→18:15)
[2017-03-05] MEDS: Famotidine 20 MG Tablet PO ×2 (08:22→20:49)
[2017-03-05] MEDS: Enoxaparin 40 MG/0.4 ML Syringe SC (08:22)
--- NOTE | 2017-03-05 11:03 | PCM.RX.CS ---
Subjective/Objective Date: 03/05/17 Time: 11:03 Antibiotic: Vancomycin Type of Consult: New start Indications for Therapy: Bacteremia Labs: Sodium 130 mmol/L (136-145) L 03/04/17 05:34 Potassium 4.3 mmol/L (3.5-5.1) 03/04/17 05:34 Chloride 99 mmol/L (98-107) 03/04/17 05:34 Carbon Dioxide 23.0 mmol/L (21.0-32.0) 03/04/17 05:34 Anion Gap 8 (5-15) 03/04/17 05:34 BUN 17 mg/dL (7-18) 03/04/17 05:34 Creatinine 0.73 mg/dL (0.70-1.30) 03/04/17 05:34 Est GFR (MDRD) Af Amer 140 mL/min (>60) 03/04/17 05:34 Est GFR (MDRD) Non-Af 116 mL/min (>60) 03/04/17 05:34 BUN/Creatinine Ratio 23.3 RATIO (10-20) H 03/04/17 05:34 Glucose 206 mg/dL (70-110) H 03/04/17 05:34 Pharmacy Plan for Drug Dosing: Goal vancomycin trough 10-15 mcg/mL. Patient Received vancomycin 1500mg IV x1, recommend to continue 1250mg IV q12h for est trough 12 mcg/mL. Check prior to 5th dose. Pharmacy Service will continue to monitor and adjust dosing as required. Pharmacy to order these labs: Trough - Vancomycin Labs to be done on (date): 03/07/17 Labs to be done (time): 08:00
--- NOTE | 2017-03-05 11:15 | CASEMGMT ---
Social Work Note Face to face with pt and . 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 State that they have already requested a new SSC and will work with the [employer] regarding the license. Offer to assist with Medicaid application and both the pt and his decline at this time. Both made aware that SW is available throughout stay if they change there mind and would like assistance with completing the application. Will continue to follow and assist with discharge planning. Plan: Home with no anticipated d/c needs. CHRIS PerezW
[2017-03-05] MEDS: Glucerna Shake 120 ML LIQUID PO ×4 (11:49→20:48)
[2017-03-05] MEDS: Lisinopril 40 MG Tablet PO (11:49)
[2017-03-05 12:10] LABS: Bedside Glucose 230 mg/dL (70-110)
--- NOTE | 2017-03-05 16:28 | PCM.PN.HOSP ---
Patient Problems: Active and Suspected Problems Ileus (Acute) Subjective: Still a lot of pain in his back. Patient said he was unable to do the MRI despite the medications this due to his back. Patient is not a bowel movements but denies any urinary incontinence. Patient still having the saddle anesthesia. Vitals/I&O's: Vital Signs Temp Pulse Resp BP Pulse Ox 36.4 C L 94 16 134/69 H 94 03/05/17 11:40 03/05/17 11:40 03/05/17 11:40 03/05/17 11:40 03/05/17 11:40 Oxygen Flow Rate 2 Oxygen Delivery Method Room Air Weight: 105.8 kg Body Mass Index (BMI) 34.4 Intake and Output for Last 24 Hours 03/03/17 03/04/17 03/05/17 23:59 23:59 23:59 Intake Total 1106 / 1106 950 / 950 Output Total 0 / 0 Balance 1106 / 1106 950 / 950 General: Alert, Cooperative, No apparent distress, - - Uncomfortable. Afebrile. Abdomen: Non-Distended, - - Normal rectal tone. Extremities: No edema, No Calf Tenderness Musculoskeletal: - - left paraspinal tenderness Psych/Mental Status: Normal Affect, Appropriate Microbiology Past 72 Hours 03/04/17 06:45 Mucosa - Nasopharyngeal Respiratory Panel (PCR) - Final Laboratory Results 03/04/17 18:02: POC Glucose 282 H 03/04/17 21:31: POC Glucose 207 H 03/05/17 00:11: POC Glucose 215 H 03/05/17 05:52: POC Glucose 153 H 03/05/17 11:56: POC Glucose 230 H Current Medications Acetaminophen (Tylenol) 650 mg PO Q4H PRN PRN PRN Reason: FEVER Last Admin: 03/05/17 05:48 Dose: 650 mg Acetaminophen (Tylenol) 650 mg PO Q6H PRN PRN PRN Reason: Mild Pain (scale 0-3)/T>100.7 Al Hydroxide/Mg Hydroxide (Mylanta Ii) 30 ml PO Q6H PRN PRN PRN Reason: Gastric burning Albuterol Sulfate (Ventolin Aerosols) 2.5 mg INHALATION Q2H PRN PRN PRN Reason: SHORTNESS OF BREATH Albuterol/Ipratropium (Duoneb) 3 ml INHALATION Q4H.RT [facility] Last Admin: 03/05/17 15:10 Dose: 3 ml Alprazolam (Xanax) 0.5 mg PO BID PRN PRN PRN Reason: ANXIETY Last Admin: 03/05/17 08:22 Dose: 0.5 mg Bisacodyl (Dulcolax) 5 mg PO DAILY PRN PRN PRN Reason: Constipation Last Admin: 03/04/17 21:50 Dose: 5 mg Cyclobenzaprine HCl (Flexeril) 10 mg PO TID PRN PRN PRN Reason: MUSCLE SPASM Last Admin: 03/05/17 14:54 Dose: 10 mg Dextrose (D50w Syringe) 0 gm IV X1 PRN; Protocol PRN Reason: Hypoglycemia Enoxaparin Sodium (Lovenox) 40 mg SC DAILY@1000 [facility] Last Admin: 03/05/17 08:22 Dose: 40 mg Famotidine (Pepcid) 20 mg PO BID [facility] Last Admin: 03/05/17 08:22 Dose: 20 mg Glucagon () 1 mg IM .X1 PRN PRN Reason: Hypoglycemia Guaifenesin (Mucinex) 1,200 mg PO BID [facility] Last Admin: 03/05/17 08:21 Dose: 1,200 mg Hydrochlorothiazide (Hctz) 25 mg PO DAILY [facility] Last Admin: 03/05/17 08:21 Dose: 25 mg Hydromorphone HCl (Dilaudid) 1 mg IV Q4H PRN PRN PRN Reason: SEVERE PAIN (6-10/10) Last Admin: 03/05/17 14:57 Dose: 1 mg Vancomycin HCl 1,250 mg/ (Sodium Chloride) 275 mls @ 183.333 mls/hr IV Q12H [facility] Insulin Aspart (Novolog Flexpen ([facility])) 0 units SC Q6 JORGE PRN Reason: Protocol Last Admin: 03/05/17 11:57 Dose: 3 units Insulin Detemir (Levemir ([facility])) 20 units SC QHS [facility] Last Admin: 03/04/17 21:52 Dose: 20 units Lisinopril (Zestril) 40 mg PO DAILY [facility] Last Admin: 03/05/17 11:49 Dose: 40 mg Magnesium Hydroxide (Milk Of Magnesia) 30 ml PO DAILY PRN PRN PRN Reason: Constipation Last Admin: 03/04/17 06:36 Dose: 30 ml Methadone HCl () 30 mg PO Q8H PRN PRN PRN Reason: PAIN Last Admin: 03/05/17 07:57 Dose: 30 mg Nicotine (Nicoderm Cq ([facility])) 14 mg TRANSDERM. DAILY [facility] Last Admin: 03/05/17 08:22 Dose: 14 mg Nutritional Formula (Lactose Free) (Glucerna Shake) 120 ml PO 4X/DAY [facility] Last Admin: 03/05/17 14:54 Dose: 120 ml Ondansetron HCl (Zofran) 4 mg IV Q8H PRN PRN PRN Reason: NAUSEA Oxycodone HCl (Oxyir) 10 mg PO Q4H PRN PRN PRN Reason: Moderate Pain (pain scale 4-5) Last Admin: 03/05/17 11:53 Dose: 10 mg Polyethylene Glycol (Miralax) 17 gm PO DAILY [facility] Last Admin: 03/05/17 08:21 Dose: 17 gm Promethazine HCl (Phenergan ([facility])) 12.5 mg IV Q6H PRN PRN PRN Reason: NAUSEA/VOMITING Propranolol HCl (Inderal) 40 mg PO BID [facility] Last Admin: 03/05/17 08:21 Dose: 40 mg Senna/Docusate Sodium (Senokot-S, Milady-Colace) 2 tablet PO DAILY [facility] Last Admin: 03/05/17 08:21 Dose: 2 tablet Sodium Chloride () 5 - 30 ml IV UD PRN PRN Reason: SALINE FLUSH Last Admin: 03/05/17 14:56 Dose: 10 ml Assessment/Plan Active and Suspected Problems Ileus (Acute) 1. Ileus Clinically improved at this time. 2. Acute on chronic back pain Seems more musculoskeletal. Patient is on chronic pain management with methadone through Dr. Rob in [facility]. Patient states that he is unable to lie flat even for a CAT scan. Told patient that he does not not have any red flags to me at this time and unfortunately, this facility, we do have the backup to do conscious sedation for an MRI. Being that my threshold for something very severe in his back is low at this time feel it is necessary he be transferred to another facility for spinal surgery or neurosurgery. We will await physical and occupational therapy evaluation to see if patient would require additional therapy needs. I reviewed the patient's OARRS, and it appears that he has been receiving his methadone through Drs. Juan Daniel Gillespie and Jeffrey Gould. Patient unable to tolerate MRI. We do not have conscious sedation for an MRI here. Patient has normal rectal tone and no urinary incontinence. Short course of oxycodone plus Flexeril. 3. Left lower lobe atelectasis I personally reviewed the chest x-ray did not see any obvious infiltrate. Atelectasis may explain his fever as well. The patient overall looks well. 4. Diabetes mellitus type 2 Continue with Levemir. 5. DVT prophylaxis with Lovenox.
--- NOTE | 2017-03-05 16:34 | PN_ITS ---
Patient Problems: Active and Suspected Problems Ileus (Acute) Subjective: Still a lot of pain in his back. Patient said he was unable to do the MRI despite the medications this due to his back. Patient is not a bowel movements but denies any urinary incontinence. Patient still having the saddle anesthesia. Vitals/I&O's: Vital Signs Temp Pulse Resp BP Pulse Ox 36.4 C L 94 16 134/69 H 94 03/05/17 11:40 03/05/17 11:40 03/05/17 11:40 03/05/17 11:40 03/05/17 11:40 Oxygen Flow Rate 2 Oxygen Delivery Method Room Air Weight: 105.8 kg Body Mass Index (BMI) 34.4 Intake and Output for Last 24 Hours 03/03/17 03/04/17 03/05/17 23:59 23:59 23:59 Intake Total 1106 / 1106 950 / 950 Output Total 0 / 0 Balance 1106 / 1106 950 / 950 General: Alert, Cooperative, No apparent distress, - - Uncomfortable. Afebrile. Abdomen: Non-Distended, - - Normal rectal tone. Extremities: No edema, No Calf Tenderness Musculoskeletal: - - left paraspinal tenderness Psych/Mental Status: Normal Affect, Appropriate Microbiology Past 72 Hours 03/04/17 06:45 Mucosa - Nasopharyngeal Respiratory Panel (PCR) - Final Laboratory Results 03/04/17 18:02: POC Glucose 282 H 03/04/17 21:31: POC Glucose 207 H 03/05/17 00:11: POC Glucose 215 H 03/05/17 05:52: POC Glucose 153 H 03/05/17 11:56: POC Glucose 230 H Current Medications Acetaminophen (Tylenol) 650 mg PO Q4H PRN PRN PRN Reason: FEVER Last Admin: 03/05/17 05:48 Dose: 650 mg Acetaminophen (Tylenol) 650 mg PO Q6H PRN PRN PRN Reason: Mild Pain (scale 0-3)/T>100.7 Al Hydroxide/Mg Hydroxide (Mylanta Ii) 30 ml PO Q6H PRN PRN PRN Reason: Gastric burning Albuterol Sulfate (Ventolin Aerosols) 2.5 mg INHALATION Q2H PRN PRN PRN Reason: SHORTNESS OF BREATH Albuterol/Ipratropium (Duoneb) 3 ml INHALATION Q4H.RT J[facility]GE Last Admin: 03/05/17 15:10 Dose: 3 ml Alprazolam (Xanax) 0.5 mg PO BID PRN PRN PRN Reason: ANXIETY Last Admin: 03/05/17 08:22 Dose: 0.5 mg Bisacodyl (Dulcolax) 5 mg PO DAILY PRN PRN PRN Reason: Constipation Last Admin: 03/04/17 21:50 Dose: 5 mg Cyclobenzaprine HCl (Flexeril) 10 mg PO TID PRN PRN PRN Reason: MUSCLE SPASM Last Admin: 03/05/17 14:54 Dose: 10 mg Dextrose (D50w Syringe) 0 gm IV X1 PRN; Protocol PRN Reason: Hypoglycemia Enoxaparin Sodium (Lovenox) 40 mg SC DAILY@1000 [facility] Last Admin: 03/05/17 08:22 Dose: 40 mg Famotidine (Pepcid) 20 mg PO BID [facility] Last Admin: 03/05/17 08:22 Dose: 20 mg Glucagon () 1 mg IM .X1 PRN PRN Reason: Hypoglycemia Guaifenesin (Mucinex) 1,200 mg PO BID [facility] Last Admin: 03/05/17 08:21 Dose: 1,200 mg Hydrochlorothiazide (Hctz) 25 mg PO DAILY [facility] Last Admin: 03/05/17 08:21 Dose: 25 mg Hydromorphone HCl (Dilaudid) 1 mg IV Q4H PRN PRN PRN Reason: SEVERE PAIN (6-10/10) Last Admin: 03/05/17 14:57 Dose: 1 mg Vancomycin HCl 1,250 mg/ (Sodium Chloride) 275 mls @ 183.333 mls/hr IV Q12H [facility] Insulin Aspart (Novolog Flexpen (Bkc)) 0 units SC Q6 JORGE PRN Reason: Protocol Last Admin: 03/05/17 11:57 Dose: 3 units Insulin Detemir (Levemir (Bkc)) 20 units SC QHS [facility] Last Admin: 03/04/17 21:52 Dose: 20 units Lisinopril (Zestril) 40 mg PO DAILY [facility] Last Admin: 03/05/17 11:49 Dose: 40 mg Magnesium Hydroxide (Milk Of Magnesia) 30 ml PO DAILY PRN PRN PRN Reason: Constipation Last Admin: 03/04/17 06:36 Dose: 30 ml Methadone HCl () 30 mg PO Q8H PRN PRN PRN Reason: PAIN Last Admin: 03/05/17 07:57 Dose: 30 mg Nicotine (Nicoderm Cq (Pbkc)) 14 mg TRANSDERM. DAILY [facility] Last Admin: 03/05/17 08:22 Dose: 14 mg Nutritional Formula (Lactose Free) (Glucerna Shake) 120 ml PO 4X/DAY [facility] Last Admin: 03/05/17 14:54 Dose: 120 ml Ondansetron HCl (Zofran) 4 mg IV Q8H PRN PRN PRN Reason: NAUSEA Oxycodone HCl (Oxyir) 10 mg PO Q4H PRN PRN PRN Reason: Moderate Pain (pain scale 4-5) Last Admin: 03/05/17 11:53 Dose: 10 mg Polyethylene Glycol (Miralax) 17 gm PO DAILY [facility] Last Admin: 03/05/17 08:21 Dose: 17 gm Promethazine HCl (Phenergan (Ll)) 12.5 mg IV Q6H PRN PRN PRN Reason: NAUSEA/VOMITING Propranolol HCl (Inderal) 40 mg PO BID [facility] Last Admin: 03/05/17 08:21 Dose: 40 mg Senna/Docusate Sodium (Senokot-S, Milady-Colace) 2 tablet PO DAILY [facility] Last Admin: 03/05/17 08:21 Dose: 2 tablet Sodium Chloride () 5 - 30 ml IV UD PRN PRN Reason: SALINE FLUSH Last Admin: 03/05/17 14:56 Dose: 10 ml Assessment/Plan Active and Suspected Problems Ileus (Acute) 1. Ileus Clinically improved at this time. 2. Acute on chronic back pain Seems more musculoskeletal. Patient is on chronic pain management with methadone through Dr. Rob in [facility]. Patient states that he is unable to lie flat even for a CAT scan. Told patient that he does not not have any red flags to me at this time and unfortunately, this facility, we do have the backup to do conscious sedation for an MRI. Being that my threshold for something very severe in his back is low at this time feel it is necessary he be transferred to another facility for spinal surgery or neurosurgery. We will await physical and occupational therapy evaluation to see if patient would require additional therapy needs. I reviewed the patient's OARRS, and it appears that he has been receiving his methadone through Drs. Juan Daniel Gillespie and Jeffrey Gould. Patient unable to tolerate MRI. We do not have conscious sedation for an MRI here. Patient has normal rectal tone and no urinary incontinence. Short course of oxycodone plus Flexeril. 3. Left lower lobe atelectasis I personally reviewed the chest x-ray did not see any obvious infiltrate. Atelectasis may explain his fever as well. The patient overall looks well. 4. Diabetes mellitus type 2 Continue with Levemir. 5. DVT prophylaxis with Lovenox.
[2017-03-05 17:16] LABS: Bedside Glucose 298 mg/dL (70-110)
[2017-03-05 21:06] LABS: Bedside Glucose 288 mg/dL (70-110)
[2017-03-06] VITALS (12 sets, daily range): BP systolic 145–186; BP diastolic 73–112; PULSE 79–89; RESP 16–21; TEMP 36.5–36.8; O2SAT 92–98
[2017-03-06] MEDS: oxyCODONE 5 MG Tablet 10 MG PO ×4 (00:41→20:19)
[2017-03-06] MEDS: 0.9% NaCl Peripheral Flush Adult/Peds IV ×6 (00:42→23:37)
[2017-03-06 01:01] LABS: Bedside Glucose 433 mg/dL (70-110)
[2017-03-06] MEDS: HYDROmorphone 1 MG/ML Syringe IV ×3 (01:52→23:37)
[2017-03-06] MEDS: Ipratropium/Albuterol Sulfate 3 ML AMPUL.NEB INHALATION ×6 (02:57→23:05)
[2017-03-06] MEDS: Methadone 10 MG Tablet 30 MG PO ×2 (05:55→16:43)
[2017-03-06 06:02] LABS: Absolute Lymphocyte Count 1.81 X10^3/ul (0.83-4.51); Absolute Neutrophil Count 4.8 X10^3/uL (2.0-7.7); Basophil# 0.04 X10^3/uL; Basophil% 0.5 % (0-1); Eosinophil# 0.17 X10^3/uL; Eosinophils% 2.1 % (0-5); Hematocrit 42.8 % (40-54); Hemoglobin 14.9 g/dl (13.0-16.5); Lymphocyte # 1.81 X10^3/ul (4.0); Lymphocyte % 21.9 % (19-41); Mean Corp Hgb Conc 34.8 g/gl (32-36); Mean Corpuscular Hgb 32.9 pg (27.0-32.0); Mean Corpuscular Volume 94.5 fL (80-94); Mean Platelet Vol. 11.5 fl (6.2-12.0); Monocyte# 1.41 X10^3/uL; Neutrophil # 4.83 X10^3/uL (2.7-7.7); Neutrophil % 58.4 % (47-70); Platelet Count 229 K/mm3 (150-450); RBC Distribution Width CV 12.4 % (11.6-14.6); RBC Distribution Width SD 41.9 fl (35.1-43.9); Red Blood Count 4.53 M/mm3 (4.6-6.2); White Blood Count 8.3 K/mm3 (4.4-11.0)
[2017-03-06 06:04] LABS: POSITIVE COUNT NO; POSITIVE DIFFERENTIAL NO; POSITIVE MORPHOLOGY NO
[2017-03-06 06:06] LABS: Bedside Glucose 184 mg/dL (70-110)
[2017-03-06 06:12] LABS: Anion Gap 9 (5-15); BUN 14 mg/dL (7-18); BUN/Creat Ratio 18.7 RATIO (10-20); Calcium,Total 9.2 mg/dL (8.5-10.1); Chloride 94 mmol/L (98-107); Creatinine, Serum 0.75 mg/dL (0.70-1.30); EST Glomerular Filtration Rate 113 mL/min (>60); Est Glom Filt Rate - Afr Amer 136 mL/min (>60); Estimated Creatinine Clearance 103.43 ml/min; Glucose 177 mg/dL (70-110); Sodium Level 132 mmol/L (136-145)
[2017-03-06] MEDS: Glucerna Shake 120 ML LIQUID PO ×4 (08:13→23:36)
[2017-03-06] MEDS: Bisacodyl 5 MG Tablet PO (08:14)
--- NOTE | 2017-03-06 09:42 | CT_ITS ---
STUDY: CT LUMBAR SPINE WITH CONTRAST REASON FOR EXAM: Male, 61 years old. Back pain. Bacteremia. RADIATION DOSAGE (If Supplied By Facility): CTDIvol = ( 29.29 ) mGy, DLP = ( 836.16 ) mGycm TECHNIQUE: The patient was scanned in a multi detector CT scanner. High resolution transaxial imaging was performed following the intravenous administration of 100 ml of Isovue 300 contrast material. Images were obtained from T12 to S1 level. Sagittal and coronal images were reconstructed. Individualized dose optimization techniques were used for this CT. COMPARISON: None FINDINGS: Normal lumbar lordosis. There is no substantial scoliosis. Grade 1 anterior listhesis of L5 on S1 without spondylolysis. Normal vertebrae of the lumbar spine. L1-2: Mild degree of disc space narrowing. Mild degree of facet hypertrophy. Mild anterior spondylosis. L2-3: Moderate degree of disc space narrowing with disc degeneration. Minimal retrolisthesis of L2 on L3. Posterior spondylosis along the posterior right side of the L2 vertebra causing minimal deformity of the thecal sac and mild compression of the exiting nerve root at that level. L3-4: Mild degree of disc space narrowing. Facet joint osteoarthritis and hypertrophy. Central posterior spondylosis causing deformity of thecal sac and mild central canal stenosis. Mild bilateral neural foraminal stenosis worse on the right side. L4-5: Spondylosis. Facet joint osteoarthritis with hypertrophy. Minimal anterior listhesis of L4 on L5. L5-S1: Marked degree of disc space narrowing. Facet joint osteoarthritis. No evidence of spinal stenosis. Normal visualized paraspinous soft tissue structures. CT/Spine Lumbar WITH Contrast IMPRESSION: Multilevel degenerative changes, as described above. Electronically Signed: Ruslan Odell MD at 12:30 EST Tel [phone], Service support ,
--- NOTE | 2017-03-06 09:48 | PN_ITS ---
Patient Problems: Active and Suspected Problems Bacteremia (Acute) Acute exacerbation of chronic low back pain (Acute) Ileus (Acute) Subjective: Still with back pain.states his spasms are longer. Vitals/I&O's: Vital Signs Temp Pulse Resp BP Pulse Ox 36.5 C L 84 16 158/79 H 95 03/06/17 08:02 03/06/17 08:02 03/06/17 08:02 03/06/17 08:02 03/06/17 08:02 Oxygen Flow Rate 2 Oxygen Delivery Method Room Air Weight: 105.8 kg Body Mass Index (BMI) 34.4 Intake and Output for Last 24 Hours 03/04/17 03/05/17 03/06/17 23:59 23:59 23:59 Intake Total 1106 / 1106 950 / 950 2067 Output Total 0 / 0 Balance 1106 / 1106 950 / 950 2067 General: Alert, Cooperative, No apparent distress HEENT: Atraumatic, Normocephalic Neck: No Nodes, Thyroid Normal Size and Texture Lungs: Clear to auscultation, Normal air movement, No rhonchi, No wheeze Cardiovascular: Regular rate, Regular Rhythm, Normal S1, Normal S2, No murmurs Abdomen: Bowel Sounds Present, Soft, Non Tender, Non-Distended, No Hepato- splenomegaly Extremities: No edema, No Calf Tenderness Skin: No rashes, No breakdown Musculoskeletal: No Tenderness to Palpation of Joints or Extremities, No Muscle Wasting Psych/Mental Status: Normal Affect, Appropriate Microbiology Past 72 Hours 03/04/17 06:45 Mucosa - Nasopharyngeal Respiratory Panel (PCR) - Final Laboratory Results 03/05/17 11:56: POC Glucose 230 H 03/05/17 17:02: POC Glucose 298 H 03/05/17 20:44: POC Glucose 288 H 03/06/17 00:36: POC Glucose 433 H 03/06/17 05:30: WBC 8.3, RBC 4.53 L, Hgb 14.9, Hct 42.8, MCV 94.5 H, MCH 32.9 H , MCHC 34.8, RDW 12.4, RDW Differential 41.9, Plt Count 229, MPV 11.5, Immature Gran % (Auto) 0.100, Neut % (Auto) 58.4, Lymph % (Auto) 21.9, Owen % (Auto) 17.0 H, Eos % (Auto) 2.1, Baso % (Auto) 0.5, Absolute Neuts (auto) 4.8, Absolute Lymphs (auto) 1.81, Total Counted Not Reportable 03/06/17 05:30: Sodium 132 L, Potassium 4.0, Chloride 94 L, Carbon Dioxide 29.0 , Anion Gap 9, BUN 14, Creatinine 0.75, Estim Creat Clear Calc 103.43, Est GFR ( MDRD) Af Amer 136, Est GFR (MDRD) Non-Af 113, BUN/Creatinine Ratio 18.7, Glucose 177 H, Calcium 9.2 03/06/17 05:54: POC Glucose 184 H Current Medications Acetaminophen (Tylenol) 650 mg PO Q4H PRN PRN PRN Reason: FEVER Last Admin: 03/05/17 05:48 Dose: 650 mg Acetaminophen (Tylenol) 650 mg PO Q6H PRN PRN PRN Reason: Mild Pain (scale 0-3)/T>100.7 Al Hydroxide/Mg Hydroxide (Mylanta Ii) 30 ml PO Q6H PRN PRN PRN Reason: Gastric burning Albuterol Sulfate (Ventolin Aerosols) 2.5 mg INHALATION Q2H PRN PRN PRN Reason: SHORTNESS OF BREATH Albuterol/Ipratropium (Duoneb) 3 ml INHALATION Q4H.RT [facility] Last Admin: 03/06/17 06:48 Dose: 3 ml Alprazolam (Xanax) 0.5 mg PO BID PRN PRN PRN Reason: ANXIETY Last Admin: 03/05/17 18:15 Dose: 0.5 mg Bisacodyl (Dulcolax) 5 mg PO DAILY PRN PRN PRN Reason: Constipation Last Admin: 03/06/17 08:14 Dose: 5 mg Cyclobenzaprine HCl (Flexeril) 10 mg PO TID PRN PRN PRN Reason: MUSCLE SPASM Last Admin: 03/06/17 05:55 Dose: 10 mg Dextrose (D50w Syringe) 0 gm IV X1 PRN; Protocol PRN Reason: Hypoglycemia Enoxaparin Sodium (Lovenox) 40 mg SC DAILY@1000 [facility] Last Admin: 03/05/17 08:22 Dose: 40 mg Famotidine (Pepcid) 20 mg PO BID [facility] Last Admin: 03/05/17 20:49 Dose: 20 mg Glucagon () 1 mg IM .X1 PRN PRN Reason: Hypoglycemia Guaifenesin (Mucinex) 1,200 mg PO BID [facility] Last Admin: 03/05/17 20:49 Dose: 1,200 mg Hydrochlorothiazide (Hctz) 25 mg PO DAILY [facility] Last Admin: 03/05/17 08:21 Dose: 25 mg Hydromorphone HCl (Dilaudid) 1 mg IV Q4H PRN PRN PRN Reason: SEVERE PAIN (6-10/10) Last Admin: 03/06/17 01:52 Dose: 1 mg Vancomycin HCl 1,250 mg/ (Sodium Chloride) 275 mls @ 183.333 mls/hr IV Q12H [facility] Last Admin: 03/06/17 08:19 Dose: 183.333 mls/hr Insulin Aspart (Novolog Flexpen (Bkc)) 0 units SC Q6 [facility]OR[facility] PRN Reason: Protocol Last Admin: 03/06/17 05:55 Dose: 1 units Insulin Detemir (Levemir (Bkc)) 20 units SC QHS [facility] Last Admin: 03/05/17 20:49 Dose: 20 units Lisinopril (Zestril) 40 mg PO DAILY [facility] Last Admin: 03/05/17 11:49 Dose: 40 mg Magnesium Hydroxide (Milk Of Magnesia) 30 ml PO DAILY PRN PRN PRN Reason: Constipation Last Admin: 03/04/17 06:36 Dose: 30 ml Methadone HCl () 30 mg PO Q8H PRN PRN PRN Reason: PAIN Last Admin: 03/06/17 05:55 Dose: 30 mg Nicotine (Nicoderm Cq (Pbkc)) 14 mg TRANSDERM. DAILY [facility] Last Admin: 03/05/17 08:22 Dose: 14 mg Nutritional Formula (Lactose Free) (Glucerna Shake) 120 ml PO 4X/DAY [facility] Last Admin: 03/06/17 08:13 Dose: 120 ml Ondansetron HCl (Zofran) 4 mg IV Q8H PRN PRN PRN Reason: NAUSEA Oxycodone HCl (Oxyir) 10 mg PO Q4H PRN PRN PRN Reason: Moderate Pain (pain scale 4-5) Last Admin: 03/06/17 08:14 Dose: 10 mg Polyethylene Glycol (Miralax) 17 gm PO DAILY [facility] Last Admin: 03/05/17 08:21 Dose: 17 gm Promethazine HCl (Phenergan (Ll)) 12.5 mg IV Q6H PRN PRN PRN Reason: NAUSEA/VOMITING Propranolol HCl (Inderal) 40 mg PO BID [facility] Last Admin: 03/05/17 20:49 Dose: 40 mg Senna/Docusate Sodium (Senokot-S, Milady-Colace) 2 tablet PO DAILY [facility] Last Admin: 03/05/17 08:21 Dose: 2 tablet Sodium Chloride () 5 - 30 ml IV UD PRN PRN Reason: SALINE FLUSH Last Admin: 03/06/17 08:15 Dose: 10 ml Assessment/Plan Active and Suspected Problems Bacteremia (Acute) Acute exacerbation of chronic low back pain (Acute) Ileus (Acute) 1. Bactemia: + alpha hemolytic strep. consult ID. await repeat BCx 2. Ileus Clinically improved at this time. 3. Acute on chronic back pain Seems more musculoskeletal. Patient is on chronic pain management with methadone through Dr. Rob in [facility]. Patient states that he is unable to lie flat even for a CAT scan. Told patient that he does not not have any red flags to me at this time and unfortunately, this facility, we do have the backup to do conscious sedation for an MRI. Being that my threshold for something very severe in his back is low at this time feel it is necessary he be transferred to another facility for spinal surgery or neurosurgery. We will await physical and occupational therapy evaluation to see if patient would require additional therapy needs. I reviewed the patient's OARRS, and it appears that he has been receiving his methadone through Drs. Juan Daniel Gillespie and Jeffrey Gould. Patient unable to tolerate MRI. We do not have conscious sedation for an MRI here. Patient has normal rectal tone and no urinary incontinence. Short course of oxycodone plus Flexeril. will check CT spine. Request records from Dr. Gillespie. 4. Left lower lobe atelectasis I personally reviewed the chest x-ray did not see any obvious infiltrate. Atelectasis may explain his fever as well. The patient overall looks well. 5. Diabetes mellitus type 2 Continue with Levemir. 6. DVT prophylaxis with Lovenox. Code Visit Inpatient E&M: [id number] [facility] L[facility]
[2017-03-06] MEDS: guaiFENesin 1,200 MG Tablet 1200 MG PO ×2 (10:16→23:36)
[2017-03-06] MEDS: Enoxaparin 40 MG/0.4 ML Syringe SC (10:16)
[2017-03-06] MEDS: Famotidine 20 MG Tablet PO ×2 (10:16→23:36)
[2017-03-06] MEDS: Polyethylene Glycol 3350 17 GM PACKET PO (10:16)
[2017-03-06] MEDS: hydroCHLOROthiazide 25 MG Tablet PO (10:16)
[2017-03-06] MEDS: Lisinopril 40 MG Tablet PO (10:17)
[2017-03-06] MEDS: Senna/Docusate Sodium 1 Tablet 2 TABLET PO (10:17)
[2017-03-06] MEDS: Propranolol 40 MG Tablet PO ×2 (10:18→23:36)
[2017-03-06] MEDS: ALPRAZolam 0.5 MG Tablet PO ×2 (10:23→10:24)
[2017-03-06 10:49] LABS: Erythrocyte Sedimentation Rate 62 mm/hr (0-20)
[2017-03-06 12:11] LABS: Bedside Glucose 264 mg/dL (70-110)
[2017-03-06] MEDS: Fleet Enema 1 ML RECTAL (13:59)
[2017-03-06 16:32] LABS: Bedside Glucose 328 mg/dL (70-110)
--- NOTE | 2017-03-06 16:38 | ECHOCS_ITS ---
Reason For Study: Chest Pain Procedure This was a 2D Doppler, Color Flow transthoracic echocardiogram. Exam performed portable in patient room. Left Ventricle Moderate concentric left ventricular hypertrophy. The estimated ejection fraction is 65 %. Stage 1 diastolic dysfunction. No regional wall motion abnormalities noted. Right Ventricle Normal size and thickness. Normal systolic function. Atria Normal left atrium. Normal right atrium. Normal atrial septum. Mitral Valve The mitral valve is structurally normal. No prolapse or stenosis seen. Trivial mitral valve insufficiency. Tricuspid Valve Normal tricuspid valve. Trivial tricuspid valve insufficiency. Right ventricular systolic pressure estimated to be 28 mmHg. Aortic Valve Normal aortic valve. Trisinus/trileaflet aortic valve. Pulmonic Valve Normal pulmonic valve. Great Vessels Normal aortic root. Normal arch. Normal inferior vena cava. Inferior vena cava collapse with sniff. Pericardium/Pleural No pericardial effusion. MMode/2D Measurements & Calculations LVIDd: 4.2 cm IVSd: 1.5 cm LVOT diam: 2.0 cm LVIDs: 2.4 cm LVPWd: 1.4 cm LVOT area: 3.2 cm2 FS: 43.2 % Ao root diam: 3.9 cm LAV(MOD-bp): 67.7 ml LA A4 area: 18.8 cm2 LA dimension: 4.0 cm LAV(MOD-bp) Indexed: 30.7 ml/m2 LAV(MOD-sp2): 68.5 ml LAV(MOD-sp4): 58.0 ml RA A4 area: 17.9 cm2 Time Measurements MV dec time: 0.19 sec Doppler Measurements & Calculations MV E max anton: 95.1 cm/sec Lat Peak E' Anton: 11.2 cm/sec Med Peak E' Anton: 6.5 cm/sec MV A max anton: 100.4 cm/sec E/E' lat: 8.5 E/E' med: 14.6 MV E/A: 0.95 MV V2 max: 110.2 cm/sec MV P1/2t max anton: 110.2 cm/sec Ao V2 max: 98.8 cm/sec MV max P.9 mmHg MV P1/2t: 66.4 msec Ao max P.9 mmHg MV V2 mean: 63.1 cm/sec MV dec slope: 486.0 cm/sec2 Ao V2 mean: 67.7 cm/sec MV mean P.9 mmHg MVA(P1/2t): 3.3 cm2 Ao mean P.0 mmHg MV V2 VTI: 27.0 cm Ao V2 VTI: 22.1 cm MVA(VTI): 2.3 cm2 SHAE(I,D): 2.8 cm2 SHAE(V,D): 2.6 cm2 LV V1 max: 81.4 cm/sec SV(LVOT): 62.1 ml PA V2 max: 78.2 cm/sec LV V1 max P.6 mmHg LV V1 mean P.5 mmHg LV V1 mean: 57.0 cm/sec LV V1 VTI: 19.4 cm TR max anton: 238.9 cm/sec TR max P.8 mmHg Interpretation Summary Moderate concentric left ventricular hypertrophy. The estimated ejection fraction is 65 %. Stage 1 diastolic dysfunction. Trivial mitral valve insufficiency. Trivial tricuspid valve insufficiency. Right ventricular systolic pressure estimated to be 28 mmHg. Compared to echo report dated 09/17/2016, no appreciable changes noted. Ordering Physician: Ricky Cevallos Referring Physician: Luis Starr Performed By: Josue Selby RCS
--- NOTE | 2017-03-06 16:39 | PCM.HP.ID ---
Problem List (1) Bacteremia Status: Acute Reason for Consult: strep in blood Consulted by: Dr. Blanco History of Present Illness: The patient is a 61 year old M with h/o lumbar fusion, presented with several days of severe lower back pain (stabbing in nature, radiating down RLE below knee, worse with movement). Sx associated with fever, chills, cough, SOB, and chest pain. No recent abx. Had dental pain and cracked tooth over the weekend when sx started. No other new joint pain. Admitted, on levaquin/ceftriaxone, abx changed to vanc due to (+) bcx. No other hardware in body. Spine hardware was removed years ago. Full ROS performed and neg except as noted above. - Medical History Past Medical History (Chronic Problems): Chronic Problems Cardiomegaly (Chronic) DM type 2 (diabetes mellitus, type 2) (Chronic) HTN (hypertension) (Chronic) Tobacco use disorder (Chronic) Opiate dependence (Chronic) Pericardial effusion (Chronic) HLD (hyperlipidemia) (Chronic) Allergies/Adverse Reactions: Allergies No Known Allergies Allergy (Verified 03/03/17 23:13) Home Medications: Ambulatory Orders Medication Instructions Recorded Hydrochlorothiazide [Hctz] 25 mg PO DAILY 02/18/14 Insulin Regular, Human [Novolin R] See Protocol SC TIDCM 02/18/15 Propranolol HCl [Inderal (Beta 40 mg PO BID 02/18/15 Laura)] Lisinopril [Zestril] 40 mg PO DAILY 04/23/16 Methadone HCl 30 mg PO Q8H PRN PRN 04/23/16 Nitroglycerin [Nitrostat] 0.4 mg SL PRN PRN 04/23/16 ALPRAZolam [Xanax] 0.5 mg PO BID PRN PRN 09/16/16 Insulin Detemir [Levemir FlexPen] 20 units SC QHS #3 pen 09/17/16 Cyclobenzaprine [Flexeril] 10 mg PO TID PRN #20 tab 03/02/17 - Social History Tobacco Use: cigarettes Vital Signs Temp Pulse Resp BP Pulse Ox 98.2 F 80 20 H 145/73 H 92 03/06/17 13:51 03/06/17 15:38 03/06/17 15:38 03/06/17 13:51 03/06/17 13:51 Oxygen Flow Rate 2 Oxygen Delivery Method Room Air Weight: 105.8 kg Body Mass Index (BMI) 34.4 Microbiology Past 72 Hours 03/04/17 06:45 Respiratory Panel (PCR) - Final Mucosa - Nasopharyngeal Laboratory Tests Past 24 Hrs 03/06/17 03/06/17 03/06/17 05:30 05:30 05:30 WBC 8.3 RBC 4.53 L Hgb 14.9 Hct 42.8 MCV 94.5 H MCH 32.9 H MCHC 34.8 RDW 12.4 RDW Differential 41.9 Plt Count 229 MPV 11.5 Immature Gran % (Auto) 0.100 Neut % (Auto) 58.4 Lymph % (Auto) 21.9 [place] % (Auto) 17.0 H Eos % (Auto) 2.1 Baso % (Auto) 0.5 Absolute Neuts (auto) 4.8 Absolute Lymphs (auto) 1.81 Total Counted Not Reportable ESR 62 H Sodium 132 L Potassium 4.0 Chloride 94 L Carbon Dioxide 29.0 Anion Gap 9 BUN 14 Creatinine 0.75 Estim Creat Clear Calc 103.43 Est GFR (MDRD) Af Amer 136 Est GFR (MDRD) Non-Af 113 BUN/Creatinine Ratio 18.7 Glucose 177 H Calcium 9.2 C-React Prot Ext Range 03/06/17 05:30 WBC RBC Hgb Hct MCV MCH MCHC RDW RDW Differential Plt Count MPV Immature Gran % (Auto) Neut % (Auto) Lymph % (Auto) [place] % (Auto) Eos % (Auto) Baso % (Auto) Absolute Neuts (auto) Absolute Lymphs (auto) Total Counted ESR Sodium Potassium Chloride Carbon Dioxide Anion Gap BUN Creatinine Estim Creat Clear Calc Est GFR (MDRD) Af Amer Est GFR (MDRD) Non-Af BUN/Creatinine Ratio Glucose Calcium C-React Prot Ext Range 106.00 H - Other Studies Radiology: [] reviewed Other Studies: [] Route of nutrition/ use of supplements: [] Nutritional Intake: [] IV Site: [] Lee Catheter: [] - Physical Exam General: Alert, Oriented x3, Cooperative, - - ill appearing HEENT: Atraumatic, PERRLA, EOMI, - - multiple cracked/rotted teeth Neck: Supple, No Nodes Lungs: Clear to auscultation, Normal air movement Cardiovascular: Regular rate, Regular Rhythm, No murmurs Abdomen: Bowel Sounds Present, Soft, Non Tender, Non-Distended Extremities: Edema Skin: No rashes Musculoskeletal: No Tenderness to Palpation of Joints or Extremities, - - minimal spine tenderness Neurological: Cranial nerves II-XII grossly intact - Assessment/Plan Antibiotics: [] Assessment/Plan: [] Active and Suspected Problems Acute exacerbation of chronic low back pain (Acute) Bacteremia (Acute) Ileus (Acute) strep bacteremia, suspect oral source. Check dental xray, following repeat bcx, check TTE. Cover with vanc, ceftriaxone, and flagyl for now. CT L-spine showed no abscess/osteo/discitis. Discussed with Dr. Blanco, will follow, thank you.
--- NOTE | 2017-03-06 17:00 | RAD_ITS ---
XR Mandible Complete Min 4 Views INDICATION: LEFT SIDED TOOTH INFECTION COMPARISON: None TECHNIQUE: Frontal and bilateral views of the mandible in open mouth position FINDINGS: There is no evidence of fracture or dislocation. Multiple teeth are absent. Evaluation for cavities or periapical abscesses is not possible on this study. RAD/Mandible Min 4 Views IMPRESSION: Evaluation is limited for the evaluation of a tooth infection or periapical abscess formation. No evidence of fracture. at 1819 Reported and signed by: Danielle Ernst MD Electronically Signed: Danielle Ernst MD at 17:17 EST Tel , Service support ,
[2017-03-06] MEDS: Acetaminophen 325 MG Tablet 650 MG PO (20:18)
[2017-03-06] MEDS: metroNIDAZOLE 500 MG Tablet PO (23:35)
[2017-03-06] MEDS: Furosemide 40 MG/4 ML Vial IV (23:37)
[2017-03-07] VITALS (9 sets, daily range): BP systolic 139–181; BP diastolic 79–104; PULSE 58–88; RESP 16–18; TEMP 36.4–36.9; O2SAT 94–98
[2017-03-07] MEDS: Ipratropium/Albuterol Sulfate 3 ML AMPUL.NEB INHALATION ×5 (02:49→19:18)
[2017-03-07] MEDS: Methadone 10 MG Tablet 30 MG PO ×3 (04:28→21:05)
[2017-03-07 06:21] LABS: Bedside Glucose 365 mg/dL (70-110)
[2017-03-07] MEDS: metroNIDAZOLE 500 MG Tablet PO ×3 (06:27→21:07)
[2017-03-07] MEDS: 0.9% NaCl Peripheral Flush Adult/Peds IV ×3 (06:30→20:07)
[2017-03-07] MEDS: HYDROmorphone 1 MG/ML Syringe IV (06:30)
[2017-03-07 07:16] LABS: Bedside Glucose 308 mg/dL (70-110)
[2017-03-07 08:44] LABS: Vancomycin, Trough Level 10.3 ug/mL (5.0-15.0)
[2017-03-07] MEDS: Acetaminophen 325 MG Tablet 650 MG PO ×3 (08:52→21:06)
[2017-03-07] MEDS: oxyCODONE 5 MG Tablet 10 MG PO ×3 (08:53→20:07)
[2017-03-07] MEDS: Propranolol 40 MG Tablet PO ×2 (10:52→21:07)
[2017-03-07] MEDS: hydroCHLOROthiazide 25 MG Tablet PO (10:52)
[2017-03-07] MEDS: Enoxaparin 40 MG/0.4 ML Syringe SC (10:52)
[2017-03-07] MEDS: Senna/Docusate Sodium 1 Tablet 2 TABLET PO (10:53)
[2017-03-07] MEDS: Famotidine 20 MG Tablet PO ×2 (10:53→21:07)
[2017-03-07] MEDS: Polyethylene Glycol 3350 17 GM PACKET PO (10:53)
[2017-03-07] MEDS: Lisinopril 40 MG Tablet PO (10:53)
[2017-03-07] MEDS: guaiFENesin 1,200 MG Tablet 1200 MG PO ×2 (10:53→21:07)
[2017-03-07] MEDS: Glucerna Shake 120 ML LIQUID PO (10:56)
[2017-03-07 13:05] LABS: Bedside Glucose 363 mg/dL (70-110)
--- NOTE | 2017-03-07 13:51 | PCM.PN.HOSP ---
Patient Problems: Active and Suspected Problems Acute exacerbation of chronic low back pain (Acute) Bacteremia (Acute) Ileus (Acute) Subjective: Back pain still persists but is better. No other new complaints. Vitals/I&O's: Vital Signs Temp Pulse Resp BP Pulse Ox 36.4 C L 82 16 139/79 H 96 03/07/17 09:51 03/07/17 11:27 03/07/17 11:27 03/07/17 09:51 03/07/17 11:27 Oxygen Flow Rate 2 Oxygen Delivery Method Room Air Weight: 105.8 kg Body Mass Index (BMI) 34.4 Intake and Output for Last 24 Hours 03/05/17 03/06/17 03/07/17 23:59 23:59 23:59 Intake Total 950 / 950 2067 1291 / 1291 Balance 950 / 950 2067 1291 / 1291 General: Alert, Cooperative, No apparent distress HEENT: Atraumatic, Normocephalic Neck: No Nodes, Thyroid Normal Size and Texture Lungs: Clear to auscultation, Normal air movement, No rhonchi, No wheeze Cardiovascular: Regular rate, Regular Rhythm, Normal S1, Normal S2, No murmurs Abdomen: Bowel Sounds Present, Soft, Non Tender, Non-Distended, No Hepato-splenomegaly Extremities: No edema, No Calf Tenderness Psych/Mental Status: Normal Affect, Appropriate Microbiology Past 72 Hours 03/04/17 06:45 Mucosa - Nasopharyngeal Respiratory Panel (PCR) - Final Laboratory Results 03/06/17 16:26: POC Glucose 328 H 03/06/17 23:40: POC Glucose 365 H 03/07/17 06:26: POC Glucose 308 H 03/07/17 07:30: Vancomycin Trough 10.3 03/07/17 12:53: POC Glucose 363 H Current Medications Acetaminophen (Tylenol) 650 mg PO Q4H PRN PRN PRN Reason: FEVER Last Admin: 03/06/17 20:18 Dose: 650 mg Acetaminophen (Tylenol) 650 mg PO Q6H PRN PRN PRN Reason: Mild Pain (scale 0-3)/T>100.7 Last Admin: 03/07/17 08:52 Dose: 650 mg Al Hydroxide/Mg Hydroxide (Mylanta Ii) 30 ml PO Q6H PRN PRN PRN Reason: Gastric burning Albuterol Sulfate (Ventolin Aerosols) 2.5 mg INHALATION Q2H PRN PRN PRN Reason: SHORTNESS OF BREATH Albuterol/Ipratropium (Duoneb) 3 ml INHALATION Q4H.RT [facility] Last Admin: 03/07/17 11:26 Dose: 3 ml Alprazolam (Xanax) 0.5 mg PO BID PRN PRN PRN Reason: ANXIETY Last Admin: 03/06/17 10:23 Dose: 0.5 mg Bisacodyl (Dulcolax) 5 mg PO DAILY PRN PRN PRN Reason: Constipation Last Admin: 03/06/17 08:14 Dose: 5 mg Cyclobenzaprine HCl (Flexeril) 10 mg PO TID PRN PRN PRN Reason: MUSCLE SPASM Last Admin: 03/07/17 13:02 Dose: 10 mg Dextrose (D50w Syringe) 0 gm IV X1 PRN; Protocol PRN Reason: Hypoglycemia Enoxaparin Sodium (Lovenox) 40 mg SC DAILY@1000 [facility] Last Admin: 03/07/17 10:52 Dose: 40 mg Famotidine (Pepcid) 20 mg PO BID [facility] Last Admin: 03/07/17 10:53 Dose: 20 mg Glucagon () 1 mg IM .X1 PRN PRN Reason: Hypoglycemia Guaifenesin (Mucinex) 1,200 mg PO BID [facility] Last Admin: 03/07/17 10:53 Dose: 1,200 mg Hydrochlorothiazide (Hctz) 25 mg PO DAILY [facility] Last Admin: 03/07/17 10:52 Dose: 25 mg Vancomycin HCl 1,250 mg/ (Sodium Chloride) 275 mls @ 183.333 mls/hr IV Q12H [facility] Last Admin: 03/07/17 08:53 Dose: 183.333 mls/hr Ceftriaxone Sodium 2 gm/ N/A 20 mls @ 240 mls/hr IV Q24 [facility] Last Admin: 03/07/17 11:38 Dose: 240 mls/hr Insulin Aspart (Novolog Flexpen (Bkc)) 0 units SC Q6 JORGE PRN Reason: Protocol Last Admin: 03/07/17 12:56 Dose: 6 units Insulin Detemir (Levemir (Bkc)) 20 units SC QHS [facility] Last Admin: 03/06/17 23:42 Dose: 20 units Lisinopril (Zestril) 40 mg PO DAILY [facility] Last Admin: 03/07/17 10:53 Dose: 40 mg Magnesium Hydroxide (Milk Of Magnesia) 30 ml PO DAILY PRN PRN PRN Reason: Constipation Last Admin: 03/04/17 06:36 Dose: 30 ml Methadone HCl () 30 mg PO Q8H PRN PRN PRN Reason: PAIN Last Admin: 03/07/17 13:02 Dose: 30 mg Metronidazole (Flagyl) 500 mg PO TID [facility] Last Admin: 03/07/17 13:05 Dose: 500 mg Nicotine (Nicoderm Cq (Pbkc)) 14 mg TRANSDERM. DAILY [facility] Last Admin: 03/07/17 10:53 Dose: 14 mg Nutritional Formula (Lactose Free) (Glucerna Shake) 120 ml PO 4X/DAY [facility] Last Admin: 03/07/17 10:56 Dose: 120 ml Ondansetron HCl (Zofran) 4 mg IV Q8H PRN PRN PRN Reason: NAUSEA Oxycodone HCl (Oxyir) 10 mg PO Q4H PRN PRN PRN Reason: Moderate Pain (pain scale 4-5) Last Admin: 03/07/17 08:53 Dose: 10 mg Polyethylene Glycol (Miralax) 17 gm PO DAILY [facility] Last Admin: 03/07/17 10:53 Dose: 17 gm Promethazine HCl (Phenergan (Ll)) 12.5 mg IV Q6H PRN PRN PRN Reason: NAUSEA/VOMITING Propranolol HCl (Inderal) 40 mg PO BID [facility] Last Admin: 03/07/17 10:52 Dose: 40 mg Senna/Docusate Sodium (Senokot-S, Milady-Colace) 2 tablet PO DAILY [facility] Last Admin: 03/07/17 10:53 Dose: 2 tablet Sodium Chloride () 5 - 30 ml IV UD PRN PRN Reason: SALINE FLUSH Last Admin: 03/07/17 11:39 Dose: 10 ml Assessment/Plan Active and Suspected Problems Acute exacerbation of chronic low back pain (Acute) Bacteremia (Acute) Ileus (Acute) 1. Bactemia: + alpha hemolytic strep. Unclear source but concerns that may be from his poor dentition. CT of the spine showed no acute process. Mandibular x-ray was limited but showed no evidence of any periapical abscess. Echocardiogram pending. 2. Ileus Clinically improved at this time. 3. Acute on chronic back pain Seems more musculoskeletal. Patient is on chronic pain management with methadone through Dr. Rob in [facility]. Patient states that he is unable to lie flat even for a CAT scan. Told patient that he does not not have any red flags to me at this time and unfortunately, this facility, we do have the backup to do conscious sedation for an MRI. Being that my threshold for something very severe in his back is low at this time feel it is necessary he be transferred to another facility for spinal surgery or neurosurgery. We will await physical and occupational therapy evaluation to see if patient would require additional therapy needs. I reviewed the patient's OARRS, and it appears that he has been receiving his methadone through Drs. Juan Daniel Gillespie and Jeffrey Gould. Patient unable to tolerate MRI. We do not have conscious sedation for an MRI here. Patient has normal rectal tone and no urinary incontinence. Short course of oxycodone plus Flexeril. CT lumbar spine showed no acute process. I told the patient that that is good though it does not definitely rule out any kind of infectious process. Request records from Dr. Gillespie. 4. Left lower lobe atelectasis I personally reviewed the chest x-ray did not see any obvious infiltrate. Atelectasis may explain his fever as well. The patient overall looks well. 5. Diabetes mellitus type 2 Continue with Levemir. 6. DVT prophylaxis with Lovenox. Discussed with the patient's at bedside. Code Visit Inpatient E&M: 83955 Subs Hosp L2
--- NOTE | 2017-03-07 16:39 | NURSING ---
Pt not willing to ambulate in room when offered. Pt has received all pain medications that he is able. Pt states he gets cramping in the low back that radiates to the right lower abdominal quadrant and down the right leg into the foot.
[2017-03-07 16:46] LABS: Bedside Glucose 212 mg/dL (70-110)
[2017-03-07 21:20] LABS: Bedside Glucose 329 mg/dL (70-110)
[2017-03-08] MEDS: oxyCODONE 5 MG Tablet 10 MG PO (02:13)
[2017-03-08 02:15] VITALS: BP 142/90; PULSE 75; RESP 16; TEMP 36.8; O2SAT 98
[2017-03-08] MEDS: metroNIDAZOLE 500 MG Tablet PO (05:20)
[2017-03-08] MEDS: Methadone 10 MG Tablet 30 MG PO (05:21)
[2017-03-08] MEDS: Acetaminophen 325 MG Tablet 650 MG PO (05:21)
[2017-03-08 06:31] LABS: Bedside Glucose 299 mg/dL (70-110)
[2017-03-08 06:58] VITALS: PULSE 82; RESP 18; O2SAT 95
[2017-03-08] MEDS: Ipratropium/Albuterol Sulfate 3 ML AMPUL.NEB INHALATION ×2 (06:58→11:04)
[2017-03-08 08:45] VITALS: BP 129/88; PULSE 80; RESP 20; TEMP 36.7; O2SAT 96
[2017-03-08] MEDS: 0.9% NaCl Peripheral Flush Adult/Peds IV ×2 (08:57→11:10)
[2017-03-08] MEDS: Propranolol 40 MG Tablet PO (10:07)
[2017-03-08] MEDS: hydroCHLOROthiazide 25 MG Tablet PO (10:07)
[2017-03-08] MEDS: Enoxaparin 40 MG/0.4 ML Syringe SC (10:08)
[2017-03-08] MEDS: Famotidine 20 MG Tablet PO (10:08)
[2017-03-08] MEDS: guaiFENesin 1,200 MG Tablet 1200 MG PO (10:08)
[2017-03-08] MEDS: Lisinopril 40 MG Tablet PO (10:09)
[2017-03-08 11:03] VITALS: PULSE 84; RESP 18
[2017-03-08 11:34] VITALS: BP 96/60; PULSE 70; RESP 20; TEMP 36.8; O2SAT 96
--- NOTE | 2017-03-08 11:35 | DCINST_ITS ---
- Discharge Diagnoses Current Active Problems: Current Active and Chronic Problems Ileus (Acute) You will use the following diet at home:: Calorie/Carbohydrate Controlled ( specify 1200, 1400, etc) - 1800 kcal/day Your food should be the consistency of: Regular Your liquids should be the consistency of: Regular/Thin Discharge Activity: Return to Normal Activity Call your doctor if you observe: Fever of 101 or Higher, Shortness of breath Allergies/Adverse Reactions: Allergies No Known Allergies Allergy (Verified 03/03/17 23:13) Medications to take at Discharge Hydrochlorothiazide [Hctz] 25 mg PO DAILY 02/18/14 Insulin Regular, Human [Novolin R] See Protocol SC TIDCM 02/18/15 Propranolol HCl [Inderal (Beta Laura)] 40 mg PO BID 02/18/15 Lisinopril [Zestril] 40 mg PO DAILY 04/23/16 Methadone HCl 30 mg PO Q8H PRN PRN 04/23/16 Nitroglycerin [Nitrostat] 0.4 mg SL PRN PRN 04/23/16 ALPRAZolam [Xanax] 0.5 mg PO BID PRN PRN 09/16/16 Cyclobenzaprine [Flexeril] 10 mg PO TID PRN #20 tab 03/02/17 Acetaminophen [Tylenol Tablet] 500 mg PO Q4H PRN PRN tablet 03/08/17 Amoxicillin [Amoxil] 500 mg PO Q8H #33 cap 03/08/17 Insulin Detemir [Levemir FlexPen] 20 units SC QHS insuln.pen 03/08/17 Insulin Detemir [Levemir FlexPen] 25 units SC QHS #3 pen 03/08/17 Oxycodone [Oxyir] 5 mg PO Q4H PRN PRN #18 tablet 03/08/17 The following prescriptions were given: Oxycodone [Oxyir] 5 mg PO Q4H PRN PRN #18 tablet PRN Reason: Severe Pain (6-11/18) Amoxicillin [Amoxil] 500 mg PO Q8H #33 cap Primary Care Physician: Luis Starr DO [Primary Care Provider] - Within 2 Weeks Please Follow Up With: Juan Daniel Gillespie - Pain Managment When: 2-4 weeks Proposed Discharge Date: 03/08/17
--- NOTE | 2017-03-08 11:35 | PCM.DC.SUM ---
Discharge Date and Diagnosis - Problem List Patient Problems: Active and Suspected Problems Ileus (Acute) Date of Admission: 03/05/17 Date of Discharge: 03/08/17 - Primary Discharge Diagnosis Active and Suspected Problems Ileus (Acute) - Secondary Discharge Diagnosis Chronic Problems Cardiomegaly (Chronic) DM type 2 (diabetes mellitus, type 2) (Chronic) HTN (hypertension) (Chronic) Tobacco use disorder (Chronic) Opiate dependence (Chronic) Pericardial effusion (Chronic) HLD (hyperlipidemia) (Chronic) Hospital Course and Treatment Imaging Results: Clinical Impression(s) from Imaging Studies Chest X-Ray 03/03/17 23:09 IMPRESSION: Atelectasis or pneumonia in the left base exaggerated by low lung volume. Electronically Signed: Lillian Richards MD at 0:24 EST , Service support , KUB X-Ray 03/04/17 00:15 IMPRESSION: Small bowel ileus suspected. Electronically Signed: Lillian Richards MD at 1:29 EST , Service support , Lumbar Spine CT 03/06/17 09:42 IMPRESSION: Multilevel degenerative changes, as described above. Electronically Signed: Ruslan Odell MD at 12:30 EST Tel [phone], Service support , Mandible X-Ray 03/06/17 17:00 IMPRESSION: Evaluation is limited for the evaluation of a tooth infection or periapical abscess formation. No evidence of fracture. at 1819 Reported and signed by: Danielle Ernst MD Electronically Signed: Danielle Ernst MD at 17:17 EST Tel , Service support , Dr. Cevallos Operations: None Procedures: 2-D Echocardiogram Summary of Care Provided: The patient is a 61 year old M presents with increasing cough, weakness and fever. Patient was diagnosed with pneumonia. My evaluation, did not appreciate any pneumonia and felt to be more atelectasis. The patient did have blood cultures when he did come in. Patient's big concern was acute and chronic back pain. Patient states that he would try an MRI but when he came down to he was unable to do so. Patient had no neurologic deficits though he did complain of some saddle anesthesia. The patient blood culture came back showing both cultures positive for gram-positive cocci. Patient was going to be discharged however that was held given the bacteremia. And infectious disease was consulted, patient had a CAT scan was of his lumbar spine showed no acute process. He had a echocardiogram that showed no vegetations, it was a transthoracic. And patient did have repeat blood cultures at that after 48 hours are still negative. Patient has very poor dentition of his teeth particularly #20 and 31 and 30. All of them could be culprits. Patient advised to see a dentist in regards to definitive management of these poor teeth. Patient has taken upon himself in the past to extract teeth on his own I have advised patient not to do that. Given the bacteremia patient will be on amoxicillin for his alphahemolytic Streptococcus sanguinous. On physical exam today Vital Signs Height 1.75 m Weight: 105.8 kg Weight in Pounds 233.2 lbs Pulse Ox 96 Temperature 36.7 C Pulse Rate 80 Respiratory Rate 20 Blood Pressure [BP] 140/70 Blood Pressure 129/88 Blood Pressure Position [BP] Sitting Blood Pressure Position Sitting Patient is no acute distress and afebrile. Patient has decay of his tooth #20 tooth #30 and 31 or just down to the knobs. No obvious abscess was identified. [] Discharge Diet: 1800 Calorie Control Diet Discharge Activity: Return to Normal Activity Call your doctor if you observe: Fever of 101 or Higher, Shortness of breath Home Medications: Medications to take at Discharge Hydrochlorothiazide [Hctz] 25 mg PO DAILY 02/18/14 Insulin Regular, Human [Novolin R] See Protocol SC TIDCM 02/18/15 Propranolol HCl [Inderal (Beta Laura)] 40 mg PO BID 02/18/15 Lisinopril [Zestril] 40 mg PO DAILY 04/23/16 Methadone HCl 30 mg PO Q8H PRN PRN 04/23/16 Nitroglycerin [Nitrostat] 0.4 mg SL PRN PRN 04/23/16 ALPRAZolam [Xanax] 0.5 mg PO BID PRN PRN 09/16/16 Cyclobenzaprine [Flexeril] 10 mg PO TID PRN #20 tab 03/02/17 Acetaminophen [Tylenol Tablet] 500 mg PO Q4H PRN PRN tablet 03/08/17 Amoxicillin [Amoxil] 500 mg PO Q8H #33 cap 03/08/17 Insulin Detemir [Levemir FlexPen] 20 units SC QHS insuln.pen 03/08/17 Insulin Detemir [Levemir FlexPen] 25 units SC QHS #3 pen 03/08/17 Oxycodone [Oxyir] 5 mg PO Q4H PRN PRN #18 tablet 03/08/17 Following Prescrptions Were Given to Patient: Oxycodone [Oxyir] 5 mg PO Q4H PRN PRN #18 tablet PRN Reason: Severe Pain (6-10) Amoxicillin [Amoxil] 500 mg PO Q8H #33 cap Primary Care Physician: Luis Starr DO [Primary Care Provider] - Within 2 Weeks Please Follow Up With: Juan Daniel Gillespie - Pain Managment When: 2-4 weeks Disposition: Home Minutes spent on discharge:: 35 Patient Condition:: Good Meaningful Use Info Meaningful Use Diagnoses (Choose all that apply): None applicable Code Visit Inpatient E&M: 71408 Disch Hosp
--- NOTE | 2017-03-08 11:41 | DS.PCM_ITS ---
Discharge Date and Diagnosis - Problem List Patient Problems: Active and Suspected Problems Ileus (Acute) Date of Admission: 03/05/17 Date of Discharge: 03/08/17 - Primary Discharge Diagnosis Active and Suspected Problems Ileus (Acute) - Secondary Discharge Diagnosis Chronic Problems Cardiomegaly (Chronic) DM type 2 (diabetes mellitus, type 2) (Chronic) HTN (hypertension) (Chronic) Tobacco use disorder (Chronic) Opiate dependence (Chronic) Pericardial effusion (Chronic) HLD (hyperlipidemia) (Chronic) Hospital Course and Treatment Imaging Results: Clinical Impression(s) from Imaging Studies Chest X-Ray 03/03/17 23:09 IMPRESSION: Atelectasis or pneumonia in the left base exaggerated by low lung volume. Electronically Signed: Lillian Richards MD at 0:24 EST , Service support , KUB X-Ray 03/04/17 00:15 IMPRESSION: Small bowel ileus suspected. Electronically Signed: Lillian Richards MD at 1:29 EST , Service support , Lumbar Spine CT 03/06/17 09:42 IMPRESSION: Multilevel degenerative changes, as described above. Electronically Signed: Ruslan Odell MD at 12:30 EST Tel [phone], Service support , Mandible X-Ray 03/06/17 17:00 IMPRESSION: Evaluation is limited for the evaluation of a tooth infection or periapical abscess formation. No evidence of fracture. at 1819 Reported and signed by: Danielle Ernst MD Electronically Signed: Danielle Ernst MD at 17:17 EST Tel , Service support , Dr. Cevallos Operations: None Procedures: 2-D Echocardiogram Summary of Care Provided: The patient is a 61 year old M presents with increasing cough, weakness and fever. Patient was diagnosed with pneumonia. My evaluation, did not appreciate any pneumonia and felt to be more atelectasis. The patient did have blood cultures when he did come in. Patient's big concern was acute and chronic back pain. Patient states that he would try an MRI but when he came down to he was unable to do so. Patient had no neurologic deficits though he did complain of some saddle anesthesia. The patient blood culture came back showing both cultures positive for gram-positive cocci. Patient was going to be discharged however that was held given the bacteremia. And infectious disease was consulted, patient had a CAT scan was of his lumbar spine showed no acute process. He had a echocardiogram that showed no vegetations, it was a transthoracic. And patient did have repeat blood cultures at that after 48 hours are still negative. Patient has very poor dentition of his teeth particularly #20 and 31 and 30. All of them could be culprits. Patient advised to see a dentist in regards to definitive management of these poor teeth. Patient has taken upon himself in the past to extract teeth on his own I have advised patient not to do that. Given the bacteremia patient will be on amoxicillin for his alphahemolytic Streptococcus sanguinous. On physical exam today Vital Signs Height 1.75 m Weight: 105.8 kg Weight in Pounds 233.2 lbs Pulse Ox 96 Temperature 36.7 C Pulse Rate 80 Respiratory Rate 20 Blood Pressure [BP] 140/70 Blood Pressure 129/88 Blood Pressure Position [BP] Sitting Blood Pressure Position Sitting Patient is no acute distress and afebrile. Patient has decay of his tooth #20 tooth #30 and 31 or just down to the knobs. No obvious abscess was identified. [] Discharge Diet: 1800 Calorie Control Diet Discharge Activity: Return to Normal Activity Call your doctor if you observe: Fever of 101 or Higher, Shortness of breath Home Medications: Medications to take at Discharge Hydrochlorothiazide [Hctz] 25 mg PO DAILY 02/18/14 Insulin Regular, Human [Novolin R] See Protocol SC TIDCM 02/18/15 Propranolol HCl [Inderal (Beta Laura)] 40 mg PO BID 02/18/15 Lisinopril [Zestril] 40 mg PO DAILY 04/23/16 Methadone HCl 30 mg PO Q8H PRN PRN 04/23/16 Nitroglycerin [Nitrostat] 0.4 mg SL PRN PRN 04/23/16 ALPRAZolam [Xanax] 0.5 mg PO BID PRN PRN 09/16/16 Cyclobenzaprine [Flexeril] 10 mg PO TID PRN #20 tab 03/02/17 Acetaminophen [Tylenol Tablet] 500 mg PO Q4H PRN PRN tablet 03/08/17 Amoxicillin [Amoxil] 500 mg PO Q8H #33 cap 03/08/17 Insulin Detemir [Levemir FlexPen] 20 units SC QHS insuln.pen 03/08/17 Insulin Detemir [Levemir FlexPen] 25 units SC QHS #3 pen 03/08/17 Oxycodone [Oxyir] 5 mg PO Q4H PRN PRN #18 tablet 03/08/17 Following Prescrptions Were Given to Patient: Oxycodone [Oxyir] 5 mg PO Q4H PRN PRN #18 tablet PRN Reason: Severe Pain (6-10) Amoxicillin [Amoxil] 500 mg PO Q8H #33 cap Primary Care Physician: Luis Starr DO [Primary Care Provider] - Within 2 Weeks Please Follow Up With: Juan Daniel Gillespie - Pain Managment When: 2-4 weeks Disposition: Home Minutes spent on discharge:: 35 Patient Condition:: Good Meaningful Use Info Meaningful Use Diagnoses (Choose all that apply): None applicable Code Visit Inpatient E&M: 46177 Disch Hosp
== END 2017-03-08 12:14 | disposition home or self-care (01) | DRG 389 ==
LOC: ED 03-04 00:58 → MS3 03-04 04:42
PROVIDERS: Admitting Provider Family Medicine; Emergency Provider Emergency Medicine; Family Provider Student in an Organized Health Care Education/Training Program; PCP Student in an Organized Health Care Education/Training Program
DX: K56.7 Ileus, unspecified (principal); R78.81 Bacteremia; E11.9 Type 2 diabetes mellitus without complications; E66.9 Obesity, unspecified; B95.5 Unspecified streptococcus as the cause of diseases classified elsewhere; E78.5 Hyperlipidemia, unspecified; J98.11 Atelectasis; M54.5 Low back pain; G89.29 Other chronic pain; I10 Essential (primary) hypertension; Z79.4 Long term (current) use of insulin; F17.210 Nicotine dependence, cigarettes, uncomplicated; Z68.34 Body mass index [BMI] 34.0-34.9, adult; I51.7 Cardiomegaly; K08.9 Disorder of teeth and supporting structures, unspecified; Z79.891 Long term (current) use of opiate analgesic
CPT/HCPCS: 36415; 36600; 70110; 71045; 72132; 74018; 80048; 80053; 80202; 81001; 82009; 82803; 82962; 83036; 83605; 83735; 85025; 85610; 85652; 85730; 86140; 87040; 87077; 87086; 87088; 87186; 87449; 87633; 93005; 93306; 94640; 94667; 94668; 97116; 97162; 97165; 97802; 99285; 99406; J7030; J7040; J7050; Q9967; A4216; J0696; J1940

== ENCOUNTER 2017-03-19 14:14 | Emergency (ER) | payer SELFPAY ==
[2017-03-19 14:15] VITALS: BP 175/92; PULSE 94; RESP 20; TEMP 36.5; O2SAT 98; BMI 29.5
--- NOTE | 2017-03-19 14:25 | CT_ITS ---
STUDY: CT ABDOMEN AND PELVIS WITHOUT CONTRAST REASON FOR EXAM: Male, 61 years old. Abdominal pain. Severe diarrhea. RADIATION DOSAGE (If Supplied By Facility): CTDIvol = ( 12.65 ) mGy, DLP = ( 692.33 ) mGycm TECHNIQUE: Transaxial images were obtained from the dome of the diaphragm to the symphysis pubis without oral contrast, and without intravenous contrast. Sagittal and coronal images were reconstructed. Individualized dose optimization techniques were used for this CT. COMPARISON: Comparison is made with prior study dated June 28, 2015. FINDINGS: Mild increased markings in the lingular segment of the left upper lobe suggestive of mild scarring. Coronary artery calcification. Stable minimal dilatation of the central intrahepatic biliary ducts. The patient is status post cholecystectomy. Normal spleen. Normal pancreas. There is symmetric enlargement of the adrenal glands suggesting adrenal hyperplasia. 3 mm nonobstructive calculus in the midportion of the right kidney. Punctate calcification in the lower pole of the left kidney. Normal visualized stomach. Normal small intestine. Normal colon. The appendix is visualized and appears normal. There is scattered atherosclerotic calcification of the abdominal aorta, without a demonstrated aneurysm. Normal inferior vena cava. Normal retroperitoneum. Normal urinary bladder. There are prostatic calcifications. Normal abdominal wall. Degenerative changes at the L5-S1 level with a grade 1 anterior listhesis of L5 on S1. CT/Abdomen/Pelvis without Cont IMPRESSION: Status post cholecystectomy with mild stable intrahepatic hepatic biliary ductal dilatation. Electronically Signed: Ruslan Odell MD at 15:47 EST Tel [phone], Service support ,
--- NOTE | 2017-03-19 14:25 | EKG12_ITS ---
Test Reason : Blood Pressure : / mmHG Vent. Rate : 091 BPM Atrial Rate : 091 BPM P-R Int : 160 ms QRS Dur : 100 ms QT Int : 404 ms P-R-T Axes : 065 -18 041 degrees QTc Int : 496 ms Normal sinus rhythm Inferior infarct , age undetermined Poor R wave progression Anterior [place], age undetermined, cannot be excluded Abnormal ECG Confirmed by YAMILETH MARTI, JAVON ([id number]), staff editor LAYLA BRIAN ([id number]) on 03/20/2017 3:10:02 PM Referred By: ROBSON Confirmed By:JAVON CARSON MD
[2017-03-19] MEDS: 0.9% Normal Saline 1,000 ML 125 ML IV (14:43)
[2017-03-19] MEDS: Ondansetron 4 MG/2 ML Vial IV (14:44)
--- NOTE | 2017-03-19 14:44 | ED.VISSUMM ---
- ER Visit Summary Date of Service: 03/19/17 Chief Complaint: [] Left sided abdominal pain copious diarrhea unable to eat fatigue History of Present Illness: The patient is a 61 M [] recently admitted for change in mental status, abdominal pain and back pain, found to have some type of blood infection, was on vancomycin later switched to oral amoxicillin that he recently completed, for for 5 days he has had copious watery diarrhea recurrence of the abdominal pain and he is unable to eat complaining of fatigue. Diabetes hypertension Physical Examination: [] vs within normal range he complains of fatigue but points to left flank, he has a lumbar spine scar midline this is not tender most of his pain is to the left flank region the midline C-spine lumbar spine thoracic spine are nontender he is awake answering questions his neck is supple he has quite a bit of dental decay no neck swelling no adenopathy neck is supple lungs are clear heart tones are normal the abdomen is soft there is a vague pain to left side of the abdomen but no rebound guarding organomegaly he is answering questions appropriately complaining of generalized fatigue Test Results: [] Emergency Department Course and Treatment: [] He has flank pain left, copious diarrhea and fatigue Since labs are generally unremarkable his white count is 12.4, his liver enzymes are elevated from the last panel drawn his ALT is about 250, he is status post cholecystectomy. The abdominal CT shows nothing acute no signs of intrahepatic duct dilatation or liver abnormalities., He has no history of hepatitis. Hepatitis screening panel was ordered it is not available stat on reevaluation he is resting more comfortably he states he feels better his abdominal pain is resolved he has had no diarrhea since he has been here, as a diabetic he states he is hungry he wants to eat we discussed inpatient versus outpatient management he wants to go home, he did eat without difficulty he has all of his medications at home. Again he has had no diarrhea here so C. difficile analysis could not be obtained He is apparently out of all of his chronic pain meds for his lumbar back pain, his abdominal pain has resolved I explained to him we cannot manage his chronic lumbar back pain from the emergency department he has an appointment see his pain management doctor this coming Thursday he will use whatever medications he is permitted to take for his chronic back pain follow-up with physicians and return for change in symptoms he was given a referral to Dr. Bryant primary care and he is instructed to continue that primary care follow-up Treatment Plan: [] Disposition: [] Stable declined admission Impression: [] Fatigue, reported diarrhea resolved, insulin dependent diabetes mellitus, abnormal liver enzymes status post cholecystectomy This note was generated with [employer] dictation software. It may contain incorrect words, spelling, and punctuation that were not noted in review of the chart prior to signing ED Disposition - Plan for ED Patient: Chief Complaint: Abd Pain Referrals: Luis Starr DO [Primary Care Provider] -
[2017-03-19 14:53] LABS: Absolute Lymphocyte Count 1.31 X10^3/ul (0.83-4.51); Absolute Neutrophil Count 10.4 X10^3/uL (2.0-7.7); Basophil# 0.02 X10^3/uL; Basophil% 0.2 % (0-1); Eosinophil# 0.02 X10^3/uL; Eosinophils% 0.2 % (0-5); Hemoglobin 18.4 g/dl (13.0-16.5); Lymphocyte # 1.31 X10^3/ul (4.0); Lymphocyte % 10.4 % (19-41); Mean Corp Hgb Conc 36.1 g/gl (32-36); Mean Corpuscular Hgb 32.6 pg (27.0-32.0); Mean Corpuscular Volume 90.3 fL (80-94); Mean Platelet Vol. 10.3 fl (6.2-12.0); Monocyte# 0.78 X10^3/uL; Monocyte% 6.2 % (0-10); Neutrophil # 10.42 X10^3/uL (2.7-7.7); Neutrophil % 82.6 % (47-70); Platelet Count 369 K/mm3 (150-450); RBC Distribution Width CV 12.5 % (11.6-14.6); RBC Distribution Width SD 41.1 fl (35.1-43.9); Red Blood Count 5.65 M/mm3 (4.6-6.2); White Blood Count 12.6 K/mm3 (4.4-11.0)
[2017-03-19 14:55] LABS: POSITIVE COUNT NO; POSITIVE DIFFERENTIAL NO; POSITIVE MORPHOLOGY NO
--- NOTE | 2017-03-19 14:56 | NURSING ---
DR. CHANCE NOTIFIED OF CRITICAL LAB RESULT FACE TO FACE. NO ORDERS GIVEN.
[2017-03-19 15:10] LABS: AST(SGOT) 149 U/L (15-37); Alanine Aminotransfer ALT/SGPT 260 U/L (16-61); Alkaline Phosphatase 380 U/L (45-117); Anion Gap 17 (5-15); BUN 16 mg/dL (7-18); BUN/Creat Ratio 18.3 RATIO (10-20); Bilirubin, Direct 0.19 mg/dL (0.00-0.30); Chloride 96 mmol/L (98-107); Creatinine, Serum 0.87 mg/dL (0.70-1.30); EST Glomerular Filtration Rate 94 mL/min (>60); Est Glom Filt Rate - Afr Amer 114 mL/min (>60); Estimated Creatinine Clearance 89.17 ml/min; Globulin 5.1 g/dL (2.2-4.2); Glucose 309 mg/dL (74-106); Lipase 81 U/L (73-393); Potassium 4.3 mmol/L (3.5-5.1); Protein, Total 8.1 g/dL (6.4-8.2); Sodium Level 131 mmol/L (136-145)
[2017-03-19 15:40] VITALS: BP 156/86; PULSE 88; RESP 27; O2SAT 97
--- NOTE | 2017-03-19 16:32 | ED.DEP ---
ED Disposition - Plan for ED Patient: Chief Complaint: Abd Pain Instructions: ED Abdominal Pain Unkn Cause Male, ED Flank Pain Uncertain Cause Referrals: Luis Starr DO [Primary Care Provider] -
[2017-03-19 16:40] VITALS: PULSE 82; RESP 18; O2SAT 98
[2017-03-21 06:08] LABS: HEPATITIS B SURFACE AG Negative (Negative); Hepatitis A AB, Total Negative (Negative); Hepatitis A IgM Antibody Negative (Negative); Hepatitis B Core AB IgM Negative (Negative); Hepatitis B Core Ab Total Negative (Negative); Hepatitis C Ab 0.1 s/co ratio (0.0-0.9)
[2017-03-21 10:47] LABS: Hep B Surface Antibodies Non Reactive (.)
== END 2017-03-19 16:41 | disposition home or self-care (01) ==
PROVIDERS: Emergency Provider Emergency Medicine; Family Provider Student in an Organized Health Care Education/Training Program; PCP Student in an Organized Health Care Education/Training Program
DX: R53.83 Other fatigue (principal); R19.7 Diarrhea, unspecified; R10.9 Unspecified abdominal pain; E11.9 Type 2 diabetes mellitus without complications; Z79.4 Long term (current) use of insulin; Z90.49 Acquired absence of other specified parts of digestive tract; G89.29 Other chronic pain; M54.5 Low back pain; K02.9 Dental caries, unspecified
CPT/HCPCS: 74176; 80048; 80076; 83690; 84484; 85025; 86704; 86705; 86706; 86708; 86709; 86803; 87340; 93005; 99284; J7030; J2405

== ENCOUNTER 2017-03-21 21:53 | Inpatient (IN) | payer SELFPAY ==
[2017-03-21 21:56] VITALS: BP 204/120; PULSE 138; RESP 35; TEMP 36.6; O2SAT 98; BMI 29.5
--- NOTE | 2017-03-21 22:08 | RAD_ITS ---
STUDY: X-RAY CHEST REASON FOR EXAM: Male, 61 years old. Shortness of breath TECHNIQUE: Single frontal view of the chest. COMPARISON: March 03, 2017 FINDINGS: The lungs are clear and expanded. There is no demonstrated pleural abnormality. Normal size heart. Normal mediastinum and lily. Normal visualized pulmonary arteries. Normal visualized aortic arch and descending thoracic aorta. Normal visualized thoracic spine. Normal visualized ribs, clavicles, and shoulders. There is no demonstrated abnormality of the visualized soft tissue structures of the upper abdomen. RAD/Chest 1 View (Portable) IMPRESSION: Normal x-ray examination of the chest. Electronically Signed: Dayton Forrest MD at 23:14 EST , Service support ,
--- NOTE | 2017-03-21 22:08 | EKG12_ITS ---
Test Reason : SOB Blood Pressure : / mmHG Vent. Rate : 124 BPM Atrial Rate : 124 BPM P-R Int : 124 ms QRS Dur : 100 ms QT Int : 324 ms P-R-T Axes : 025 -25 103 degrees QTc Int : 465 ms Sinus tachycardia Leftward axis Poor R wave progression Inferior MA, age undetermined, cannot be excluded Nonspecific ST and T wave abnormality Abnormal ECG Confirmed by YAMILETH MARTI, JAVON ([id number]), image editor LAYLA BRIAN ([id number]) on 03/23/2017 1:25:20 PM Referred By: JUSTEN Confirmed By:JAVON CARSON MD
[2017-03-21] MEDS: Ondansetron 4 MG/2 ML Vial IV (22:16)
[2017-03-21 22:17] LABS: Absolute Lymphocyte Count 1.86 X10^3/ul (0.83-4.51); Absolute Neutrophil Count 12.7 X10^3/uL (2.0-7.7); Basophil# 0.02 X10^3/uL; Basophil% 0.1 % (0-1); Eosinophil# 0.01 X10^3/uL; Eosinophils% 0.1 % (0-5); Hematocrit 54.3 % (40-54); Lymphocyte # 1.86 X10^3/ul (4.0); Lymphocyte % 11.8 % (19-41); Mean Corp Hgb Conc 35.4 g/gl (32-36); Mean Corpuscular Hgb 32.9 pg (27.0-32.0); Mean Corpuscular Volume 93.1 fL (80-94); Mean Platelet Vol. 10.6 fl (6.2-12.0); Monocyte# 1.16 X10^3/uL; Monocyte% 7.4 % (0-10); Neutrophil # 12.66 X10^3/uL (2.7-7.7); Neutrophil % 80.2 % (47-70); Platelet Count 361 K/mm3 (150-450); RBC Distribution Width CV 13.1 % (11.6-14.6); RBC Distribution Width SD 44.3 fl (35.1-43.9); Red Blood Count 5.83 M/mm3 (4.6-6.2); White Blood Count 15.8 K/mm3 (4.4-11.0)
[2017-03-21 22:20] VITALS: PULSE 124; RESP 42
[2017-03-21 22:20] LABS: Hemoglobin 19.2 g/dl (13.0-16.5); POSITIVE COUNT NO; POSITIVE DIFFERENTIAL NO; POSITIVE MORPHOLOGY NO
[2017-03-21] MEDS: Ipratropium/Albuterol Sulfate 3 ML AMPUL.NEB INHALATION (22:24)
[2017-03-21 22:40] LABS: Anion Gap 21 (5-15); BUN 24 mg/dL (7-18); BUN/Creat Ratio 19.8 RATIO (10-20); Calcium,Total 9.4 mg/dL (8.5-10.1); Chloride 99 mmol/L (98-107); Creatinine, Serum 1.21 mg/dL (0.70-1.30); EST Glomerular Filtration Rate 65 mL/min (>60); Est Glom Filt Rate - Afr Amer 78 mL/min (>60); Estimated Creatinine Clearance 64.11 ml/min; Glucose 357 mg/dL (74-106); Potassium 3.9 mmol/L (3.5-5.1); Sodium Level 132 mmol/L (136-145)
[2017-03-21 23:16] LABS: Blood Gas Specimen Type VEN; O2 Delivery Device Room Air; SITE OTHER; VBG BASE EXCESS -18 mmol/L (-1.0-3.5); VBG Bicarbonate 10 mmol/L (22-26); VBG Oxygen Content 11 mmol/L (23-33); VBG PO2 41 mmHg (25-40); VBG SO2 66 % (50-70); VBG pCO2 26.1 mmHg (41-51)
[2017-03-21 23:20] LABS: Phosphorus 3.3 mg/dL (2.5-4.9)
[2017-03-21 23:23] VITALS: PULSE 118; RESP 42; O2SAT 96
--- NOTE | 2017-03-21 23:29 | ED.VISSUMM ---
- ER Visit Summary Date of Service: 03/21/17 Chief Complaint: Right flank pain History of Present Illness: The patient is a [address] Starr. He reports he has right flank pain that began 4 days ago. It is a continuous sharp, stabbing pain. Is 10 out of 10 at worst 9 out of 10 currently. Is worsened by urinating and relieved by nothing. He reports is been nauseated and vomited 3 times. No blood in his emesis. He has had multiple episodes of diarrhea. No blood in his stools or black tarry stools. He has had dysuria and frequency. He denies hematuria. He states he has never had anything like this before. Patient reports that he has been short of breath for the past 2 days. He denies any chest pain. No fever. He has had chills. Physical Examination: Vitals: 97.8, 204/120, 124, 42, 98% on room air which is not hypoxic General: Well-nourished and well-developed. Head: Normocephalic atraumatic. Neck: Supple, no lymphadenopathy. No JVD. Nontender. Cardiovascular: Tachycardic regular rhythm with no murmur. Respiratory: Mild respiratory distress with tachypnea. Clear to auscultation bilaterally. Abdominal: Soft, mild diffuse tenderness to palpation, nondistended, normal bowel sounds. No guarding, rebound, or peritoneal signs. Back: Moderate right CVA tenderness. Extremities: Nontender, no edema. Skin: Normal color, no rash. Neurologic: Alert and oriented ?3. Cranial nerves II through XII are intact. Normal strength and sensation. Psych: Normal affect. Test Results: Chest x-ray is normal. EKG is sinus tach [address] changes and artifact. Troponin is negative. Chem-7 is marked for sodium 132 with a glucose of 357. CO2 is 12 and BUN is 24. CBC is marked for white count of 15.8, H&H of 19.2 and 54.3, segment neutrophils 80, monocytes of 12. Magnesium and phosphorus are normal. Venous blood gas shows a pH of 7.198 and a CO2 of 26.1. Urinalysis showed no evidence of infection. Emergency Department Course and Treatment: Patient was given 2 L normal saline. He is given morphine and Zofran for his nausea and pain. He was started on insulin drip. He was unable to tolerate laying flat for a CT due to his breathing. Treatment Plan: Patient will require admission to the hospital for his DKA. He had a CT flank 2 days ago that showed a 3 mm stone in his right kidney. I suspect that this is the source of his flank pain. Patient will be discussed with Dr. Kee for admission, further evaluation, and treatment. Disposition: Admitted in serious condition. Impression: 1. DKA. 2. Right flank pain. 3. Critical care time 30 minutes. This note was generated with App[employer] dictation software. It may contain incorrect words, spelling, and punctuation that were not noted in review of the chart prior to signing ED Disposition - Plan for ED Patient: Disposition: Acute Care Hospital [facility] Chief Complaint: Flank Pain
[2017-03-21 23:31] LABS: Bedside Glucose 388 mg/dL (70-110)
[2017-03-22] VITALS (24 sets, daily range): BP systolic 99–195; BP diastolic 52–102; PULSE 102–143; RESP 17–40; TEMP 36.3–36.8; O2SAT 95–100; BMI 30.2
--- NOTE | 2017-03-22 00:48 | ED.RN ---
PT AND PT INFORMED OF NEED FOR A URINE SPECIMEN. THIS RN INSTRUCTED PT AND ON HOW TO COMPLETE URINE TEST. PT TOLD TO RING CALL BUTTON WHEN READY TO PEE AND THAT THE STAFF WOULD ASSIST IN PROCEDURE. PT AND VERBALIZED UNDERSTANDING. PT TOLD MULTIPLE TIMES NOT TO GET OUT OF BED, AND THAT HE WOULD BE CATHETERIZED IF HE WAS UNABLE TO, OR WAS TOO WEAK TO URINATE IN THE BED WITH A URINAL. PT AND VERBALIZED UNDERSTANDING. APPROX. 15 MINUTES AFTERWARDS, PT GRABS RN FROM [facility] STATING THAT THE PT HAD FALLEN. THIS RN WALKED IN TO PT SITTING ON FLOOR. PT REPORTS THAT SHE PUT THE RAIL DOWN AND HELPED PT OUT OF THE BED TO PEE. PT REPORTS HE FELT WEAK AND SAT DOWN ON THE GROUND. PT REPORTS HITTING HEAD ON KEYBOARD. THIS RN ASSESS PT HEAD. NO CONTUSION OR BRUISING NOTED. THIS RN ASSISTED PT BACK INTO BED AND OBTAINED VITAL SIGNS. DR. CAMPUZANO INFORMED. PT AND RE -INSTRUCTED NOT TO GET OUT OF THE BED. PT HEAVILY ENCOURAGED TO USE CALL BUTTON. CALL BUTTON WAS ATTACHED TO RAILING AT THE TIME OF THE FALL.
[2017-03-22 01:10] LABS: Bedside Glucose 297 mg/dL (70-110)
[2017-03-22 01:10] LABS: Bedside Glucose 370 mg/dL (70-110)
[2017-03-22 01:10] LABS: Bedside Glucose 324 mg/dL (70-110)
[2017-03-22] MEDS: 0.9% Normal Saline 1,000 ML 999 ML IV (01:39)
[2017-03-22 01:46] LABS: Bedside Glucose 277 mg/dL (70-110)
[2017-03-22 01:50] LABS: Bacteria 0 SEEN /hpf (None Seen); Mucous, Urine 0 SEEN /hpf (<or=2+); Red Blood Cells-Urine 0 SEEN /hpf (0-5); Squamous Epithelial Cells - UA 0 SEEN /hpf (0-5)
[2017-03-22 02:03] LABS: Color, Urine Yellow (Yellow); Glucose, Dipstick 1000 mg/dl (Normal); Leukocyte Esterase-Dipstick Negative /ul (Negative); Nitrite-Dipstick Negative (Negative); Occult Blood-Urine 10 /ul (Negative); Protein-Dipstick 100 mg/dl (Negative); Specific Gravity, Urine 1.025 (1.002-1.030); Urine Bilirubin Dipstick Negative (Negative); Urine Clarity Clear (Clear); Urine Urobilinogen 1 mg/dl (Normal)
[2017-03-22 02:22] LABS: Hyaline Cast 0-5 SEEN /lpf (0-5); Ketone-Dipstick 150 mg/dl (Negative); White Blood Cells 0-5 SEEN /hpf (0-5)
--- NOTE | 2017-03-22 02:45 | HP.PCM_ITS ---
Problem List (1) DKA (diabetic ketoacidoses) Status: Acute (2) DM type 2 (diabetes mellitus, type 2) Status: Chronic Qualifiers: (3) HLD (hyperlipidemia) Status: Chronic Qualifiers: (4) HTN (hypertension) Status: Chronic Qualifiers: (5) Opiate dependence Status: Chronic Qualifiers: (6) Pericardial effusion Status: Chronic (7) Tobacco use disorder Status: Chronic (8) CHARLIE (acute kidney injury) Status: Resolved History of Present Illness Date of Admission: 03/22/17 Chief Complaint: DKA The patient is a 61 year old male w/ h/o cardiomegaly, obesity, diabetes mellitus type II, HTN, HLD, tobacco use, opiate dependence w/ chronic back pain , anxiety who presents to the [facility] ED on 03/22/17 for right flank pain. Pain is sharp and episodic. Urination makes the pain worse. Nothing improves the pain. Pain is severe that it stopped him in his track. He also has generalized fatigue and ill-feeling. He also has not been taking his insulin for at least 4- 5 days and maybe even longer. He has been nauseated and had diarrhea. He also has been SOB without cough for the past 2 days. He went to the ED for further workup given constellation of symptoms. Past Medical History Past Medical History (Chronic Problems): Chronic Problems Cardiomegaly (Chronic) DM type 2 (diabetes mellitus, type 2) (Chronic) HTN (hypertension) (Chronic) Tobacco use disorder (Chronic) Opiate dependence (Chronic) Pericardial effusion (Chronic) HLD (hyperlipidemia) (Chronic) Allergies No Known Allergies Allergy (Verified 03/21/17 21:56) Home Medications: Ambulatory Orders Medication Instructions Recorded Hydrochlorothiazide [Hctz] 25 mg PO DAILY 02/18/14 Insulin Regular, Human [Novolin R] See Protocol SC TIDCM 02/18/15 Propranolol HCl [Inderal (Beta 40 mg PO BID 02/18/15 Laura)] Lisinopril [Zestril] 40 mg PO DAILY 04/23/16 Methadone HCl 30 mg PO Q8H PRN PRN 04/23/16 Nitroglycerin [Nitrostat] 0.4 mg SL PRN PRN 04/23/16 ALPRAZolam [Xanax] 0.5 mg PO BID PRN PRN 09/16/16 Cyclobenzaprine [Flexeril] 10 mg PO TID PRN #20 tab 03/02/17 Acetaminophen [Tylenol Tablet] 500 mg PO Q4H PRN PRN tablet 03/08/17 Amoxicillin [Amoxil] 500 mg PO Q8H #33 cap 03/08/17 Insulin Detemir [Levemir FlexPen] 20 units SC QHS insuln.pen 03/08/17 Oxycodone [Oxyir] 5 mg PO Q4H PRN PRN #18 tablet 03/08/17 Surgical History: - - Back surgery, cholecystectomy, appendectomy. Psychiatric History: Anxiety Smoking Status: Current every day smoker - *Family History Maternal History Items: Diabetes, Hypertension Paternal History Items: Diabetes, Hypertension Review of Systems Constitutional: Reports: Malaise, Weakness, Fatigue. Denies: Chills, Fever, Weight Change HEENT: Denies: Head Aches, Sinus Congestion, Sinus Drainage Cardiovascular: Denies: Chest Pain, Palpitations Respiratory: Denies: Cough, Shortness of breath at rest, Sputum production Gastrointestinal: Denies: Abdominal Pain, Nausea, Vomiting Genitourinary: Denies: Dysuria Musculoskeletal: Denies: Joint Pain, Joint Tenderness Skin: Denies: Rash, Wounds Neurological: Denies: Numbness, Tingling, Focal weakness Psychiatric: Denies: Anxiety, Depression, Homicidal Ideations, Suicidal Ideations Hematologic/ Lymphatic: Denies: Easy Bruising, Easy Bleeding VTE Information - Inpt Only VTE Present on Admission: No VTE Mechan Device Prophylaxis: SCD's VTE Pharm Prophylaxis ordered?: Yes Patient Problems: Active and Suspected Problems DKA (diabetic ketoacidoses) (Acute) - Physical Exam General: Alert, Oriented x3, Cooperative HEENT: Atraumatic, PERRLA, EOMI, Normocephalic Neck: Supple, No JVD, Negative Carotid Bruits Lungs: Clear to auscultation, Normal air movement Cardiovascular: Regular rate, No murmurs Abdomen: Bowel Sounds Present, Soft, Non Tender Extremities: No edema, Capillary Refill Less than 3 Seconds Skin: No rashes, No breakdown Musculoskeletal: No Tenderness to Palpation of Joints or Extremities Neurological: Cranial nerves II-XII grossly intact Psych/Mental Status: Normal Affect, Appropriate Vital Signs Temp Pulse Resp BP Pulse Ox 97.8 F 111 H 17 150/82 H 97 03/22/17 02:20 03/22/17 02:20 03/22/17 02:20 03/22/17 02:20 03/22/17 02:20 Assessment/Plan Active and Suspected Problems DKA (diabetic ketoacidoses) (Acute) The patient is a 61 year old male w/ h/o cardiomegaly, obesity, diabetes mellitus type II, HTN, HLD, tobacco use, opiate dependence w/ chronic back pain , anxiety who presents to the [facility] ED on 03/22/17 for right flank pain. 1) DKA: Pt has elevated glucose, gap 21, and ketones. DKA is secondary to noncompliant with insulin. Will get cultures and trops. Will start insulin gtt until gap closes. Will aggressively hydrate. Will replete electrolytes. 2) CHARLIE: Most likely azotemia. Will hydration. U/A is concerning for possible stone given hematuria. Will get renal U/S to r/o stone. No e/o infection. Will consider ceftriaxone if no improvement in leukocytosis. Monitor. 3) Hyponatremia: Most likely secondary to hypovolemia hyponatremia. Hydration. 4) Prophylaxis: SCD / heparin.
[2017-03-22 03:01] LABS: Bedside Glucose 223 mg/dL (70-110)
[2017-03-22 03:01] LABS: Bedside Glucose 201 mg/dL (70-110)
[2017-03-22 03:01] LABS: Bedside Glucose 194 mg/dL (70-110)
[2017-03-22 04:02] LABS: Absolute Lymphocyte Count 2.43 X10^3/ul (0.83-4.51); Absolute Neutrophil Count 10.5 X10^3/uL (2.0-7.7); Basophil# 0.01 X10^3/uL; Basophil% 0.1 % (0-1); Eosinophil# 0.02 X10^3/uL; Eosinophils% 0.1 % (0-5); Hematocrit 46.9 % (40-54); Hemoglobin 16.8 g/dl (13.0-16.5); Lymphocyte # 2.43 X10^3/ul (4.0); Lymphocyte % 17.2 % (19-41); Mean Corp Hgb Conc 35.8 g/gl (32-36); Mean Corpuscular Hgb 33.2 pg (27.0-32.0); Mean Corpuscular Volume 92.7 fL (80-94); Mean Platelet Vol. 10.4 fl (6.2-12.0); Monocyte# 1.06 X10^3/uL; Monocyte% 7.5 % (0-10); Neutrophil # 10.54 X10^3/uL (2.7-7.7); Neutrophil % 74.8 % (47-70); POSITIVE COUNT NO; POSITIVE DIFFERENTIAL NO; POSITIVE MORPHOLOGY NO; Platelet Count 317 K/mm3 (150-450); RBC Distribution Width SD 43.8 fl (35.1-43.9); Red Blood Count 5.06 M/mm3 (4.6-6.2); White Blood Count 14.1 K/mm3 (4.4-11.0)
[2017-03-22 04:11] LABS: Bedside Glucose 179 mg/dL (70-110)
[2017-03-22] MEDS: Dext 5%-0.45% NS 1,000 ML 150 ML IV (04:19)
[2017-03-22 04:20] LABS: Anion Gap 13 (5-15); BUN 21 mg/dL (7-18); BUN/Creat Ratio 20.4 RATIO (10-20); Calcium,Total 8.4 mg/dL (8.5-10.1); Chloride 105 mmol/L (98-107); Creatinine, Serum 1.03 mg/dL (0.70-1.30); EST Glomerular Filtration Rate 78 mL/min (>60); Est Glom Filt Rate - Afr Amer 94 mL/min (>60); Estimated Creatinine Clearance 75.31 ml/min; Glucose 169 mg/dL (74-106); Sodium Level 136 mmol/L (136-145)
[2017-03-22] MEDS: 0.9% NaCl Peripheral Flush Adult/Peds IV ×3 (04:20→13:04)
[2017-03-22 04:32] LABS: Magnesium 1.8 mg/dL (1.6-2.6)
[2017-03-22 04:57] LABS: AST(SGOT) 31 U/L (15-37); Alanine Aminotransfer ALT/SGPT 103 U/L (16-61); Albumin, Serum 2.6 g/dL (3.2-5.0); Alkaline Phosphatase 222 U/L (45-117); Bilirubin, Direct 0.13 mg/dL (0.00-0.30); Globulin 3.9 g/dL (2.2-4.2); Protein, Total 6.5 g/dL (6.4-8.2)
[2017-03-22 05:06] LABS: Bedside Glucose 146 mg/dL (70-110)
[2017-03-22 06:06] LABS: Bedside Glucose 164 mg/dL (70-110)
[2017-03-22 06:27] LABS: M R Staph aureus DNA By PCR Negative (Negative); Probe Check PASS; Specimen Processing Control PASS
[2017-03-22 07:11] LABS: Bedside Glucose 175 mg/dL (70-110)
[2017-03-22 08:05] LABS: Anion Gap 9 (5-15); BUN 17 mg/dL (7-18); BUN/Creat Ratio 16.7 RATIO (10-20); Calcium,Total 8.4 mg/dL (8.5-10.1); Chloride 108 mmol/L (98-107); Creatinine, Serum 1.02 mg/dL (0.70-1.30); EST Glomerular Filtration Rate 79 mL/min (>60); Est Glom Filt Rate - Afr Amer 95 mL/min (>60); Estimated Creatinine Clearance 78.53 ml/min; Glucose 174 mg/dL (74-106); Potassium 3.2 mmol/L (3.5-5.1); Sodium Level 136 mmol/L (136-145)
[2017-03-22 08:21] LABS: Bedside Glucose 178 mg/dL (70-110)
[2017-03-22 08:48] LABS: Hemoglobin A1c 11.1 % (4.2-6.3)
[2017-03-22] MEDS: 0.9% Normal Saline 1,000 ML 100 ML IV ×2 (10:33→21:39)
[2017-03-22 10:41] LABS: Bedside Glucose 180 mg/dL (70-110)
[2017-03-22] MEDS: oxyCODONE 5 MG Tablet 10 MG PO ×3 (10:52→22:31)
[2017-03-22 12:50] LABS: Anion Gap 12 (5-15); BUN 15 mg/dL (7-18); BUN/Creat Ratio 14.4 RATIO (10-20); Calcium,Total 8.8 mg/dL (8.5-10.1); Chloride 106 mmol/L (98-107); Creatinine, Serum 1.04 mg/dL (0.70-1.30); EST Glomerular Filtration Rate 77 mL/min (>60); Est Glom Filt Rate - Afr Amer 93 mL/min (>60); Estimated Creatinine Clearance 77.02 ml/min; Glucose 246 mg/dL (74-106); Potassium 3.5 mmol/L (3.5-5.1); Sodium Level 137 mmol/L (136-145)
[2017-03-22 13:30] LABS: Bedside Glucose 270 mg/dL (70-110)
[2017-03-22] MEDS: Insulin NPH Human 100 UNITS/ML PEN 20 UNITS SC (16:44)
[2017-03-22 16:55] LABS: Bedside Glucose 311 mg/dL (70-110)
--- NOTE | 2017-03-22 17:03 | NURSING ---
Spoke with Dejuan in pharmacy to request Lisinopril begin NEFTALY instead of 03/23.
[2017-03-22] MEDS: Lisinopril 20 MG Tablet PO (17:27)
[2017-03-22 21:21] LABS: Bedside Glucose 389 mg/dL (70-110)
[2017-03-22 22:31] LABS: Amphetamine Urine VISTA NEGATIVE (<1000 ng/mL); Barbiturate Urine VISTA NEGATIVE (< 200 ng/mL); Benzodiazepine Urine VISTA NEGATIVE (< 200 ng/mL); Cocaine Urine VISTA NEGATIVE (< 300 ng/mL); Ecstacy Urine VISTA NEGATIVE (< 500 ng/mL); Methadone Urine VISTA NEGATIVE (< 300 ng/mL); PCP Urine VISTA NEGATIVE (< 25 ng/mL); THC Urine VISTA NEGATIVE (< 50 ng/mL); Vista UDS pH Range 6
[2017-03-23] VITALS (9 sets, daily range): BP systolic 144–212; BP diastolic 80–108; PULSE 105–129; RESP 16–22; TEMP 36.4–36.9; O2SAT 96–98
[2017-03-23] MEDS: oxyCODONE 5 MG Tablet 10 MG PO ×3 (02:37→11:47)
[2017-03-23 05:48] LABS: Anion Gap 12 (5-15); BUN 11 mg/dL (7-18); BUN/Creat Ratio 14.9 RATIO (10-20); Calcium,Total 8.5 mg/dL (8.5-10.1); Chloride 103 mmol/L (98-107); Creatinine, Serum 0.74 mg/dL (0.70-1.30); EST Glomerular Filtration Rate 114 mL/min (>60); Est Glom Filt Rate - Afr Amer 138 mL/min (>60); Estimated Creatinine Clearance 108.24 ml/min; Glucose 276 mg/dL (74-106); Sodium Level 134 mmol/L (136-145)
[2017-03-23 06:32] LABS: Absolute Lymphocyte Count 1.87 X10^3/ul (0.83-4.51); Absolute Neutrophil Count 6.3 X10^3/uL (2.0-7.7); Basophil# 0.03 X10^3/uL; Basophil% 0.3 % (0-1); Eosinophil# 0.07 X10^3/uL; Eosinophils% 0.7 % (0-5); Hematocrit 47.9 % (40-54); Hemoglobin 17.2 g/dl (13.0-16.5); Lymphocyte # 1.87 X10^3/ul (4.0); Lymphocyte % 19.8 % (19-41); Mean Corp Hgb Conc 35.9 g/gl (32-36); Mean Corpuscular Hgb 32.9 pg (27.0-32.0); Mean Corpuscular Volume 91.6 fL (80-94); Monocyte# 1.16 X10^3/uL; Monocyte% 12.3 % (0-10); Neutrophil # 6.27 X10^3/uL (2.7-7.7); Neutrophil % 66.6 % (47-70); Platelet Count 263 K/mm3 (150-450); RBC Distribution Width CV 13.1 % (11.6-14.6); RBC Distribution Width SD 43.3 fl (35.1-43.9); Red Blood Count 5.23 M/mm3 (4.6-6.2); White Blood Count 9.4 K/mm3 (4.4-11.0)
[2017-03-23 06:33] LABS: POSITIVE COUNT NO; POSITIVE DIFFERENTIAL NO; POSITIVE MORPHOLOGY NO
[2017-03-23] MEDS: 0.9% Normal Saline 1,000 ML 100 ML IV (06:54)
[2017-03-23] MEDS: Insulin NPH Human 100 UNITS/ML PEN 20 UNITS SC (07:41)
[2017-03-23] MEDS: Lisinopril 40 MG Tablet PO (07:47)
[2017-03-23 07:50] LABS: Bedside Glucose 319 mg/dL (70-110)
[2017-03-23] MEDS: 0.9% NaCl Peripheral Flush Adult/Peds IV (09:35)
--- NOTE | 2017-03-23 10:52 | CASEMGMT ---
SANDY OSUNA Face to Face with patient for initial transition planning/care coordination assessment. SANDY OSUNA introduced self and role at [facility]. Patient sitting up in bed, alert and oriented, at bedside. Patient willing to participate in assessment and is able to answer all questions appropriately. Care providers, pharmacy, and demographics verified. . Patient wishes to discharge home, denies need for home health at this time. SANDY OSUNA verified with patient if he had completed Medicaid application that was given at previous admission. Patient and state they comleted Medicaid applicatoin last time and someone picked it up. Patient's states that patient checks blood sugar and has insulin at home and will be picking up more insulin and test strips at [facility]. Patient states he has no further needs or concerns at this time. SANDY OSUNA updated DEANNA Dowell regarding completion of Medicaid application. CM to follow for discharge planning needs that may arise. Disposition Plan: Patient to discharge home with family support and follow-up plans in place.
[2017-03-23 12:00] LABS: Bedside Glucose 330 mg/dL (70-110)
[2017-03-23] MEDS: amLODIPine 2.5 MG Tablet PO (17:16)
[2017-03-23] MEDS: Insulin NPH Human 100 UNITS/ML PEN 30 UNITS SC (17:16)
[2017-03-23 17:26] LABS: Bedside Glucose 322 mg/dL (70-110)
--- NOTE | 2017-03-23 19:28 | PCM.PROGNOTE ---
Patient Problems: Active and Suspected Problems DKA (diabetic ketoacidoses) (Acute) Subjective: Patient was seen and examined today, he refused to participate with physical therapy today, when I went in to see him late this afternoon and his was present in the room, I told him that he could go home today if he was able to walk, patient was unable to walk without assistance, felt uncomfortable with him being discharged home and I agreed. Patient's IV fluids were stopped today, he is not taking orals adequately and his blood sugars are down but still elevated. I found out today through some phone calls that I made, patient receives a chronic methadone prescription from a [place] pain management physician for chronic low back pain which he states is secondary to a failed back surgery. He uses 150 count 10 mg methadone's per month-one 5 times a day on a programmed basis, patient has not been on this medication since he's been in the hospital, he is only been receiving IV morphine and OxyIR as needed. In addition, patient appear tachycardic this evening, he has not been receiving his beta-sharon which he takes at home. I decided to place the patient on metoprolol and restart his methadone at 10 mg 4 times a day. Hopefully patient will be more stable as far as his ambulation is concerned and will be able to be discharged tomorrow. In addition, I had a conversation with his and the patient this afternoon, in April 2016, he was given an application to apply for Medicaid which he did not fill out. In addition, patient ran out of the 7030 insulin which he stated at that time he could afford, and just did not bother to go back to [facility] to get 7030 insulin. Patient stated to me yesterday that he was placed on Levemirr but he could not afford Levemir. At that time, I placed him on NPH insulin which she can obtain [id number] at [facility]. Patient gets his regular insulin at [facility] presently and has syringes at home. - Physical Exam General: Alert, Oriented x3, Cooperative, No apparent distress, Well developed, Well nourished HEENT: Atraumatic, PERRLA, EOMI, Normocephalic Oral: Moist Mucosa Neck: Supple, No JVD, Negative Carotid Bruits, No Nuchal Rigidity, Trachea Midline Lungs: Clear to auscultation, Normal air movement, No rhonchi, No wheeze, No rales Cardiovascular: Regular rate, Regular Rhythm, No murmurs, PMI Normal, No rub noted, No Gallop, Tachycardic Abdomen: Bowel Sounds Present, Soft, Non Tender, Non-Distended Extremities: No clubbing, No cyanosis, No edema, Capillary Refill Less than 3 Seconds Skin: No rashes, No breakdown Musculoskeletal: No Tenderness to Palpation of Joints or Extremities Neurological: Cranial nerves II-XII grossly intact, Neuro grossly intact, Muscle tone normal, Sensory exam intact to light touch and pain Psych/Mental Status: Normal Affect, Appropriate, Alert and oriented to time, place, person, mood and affect Vital Signs Temp Pulse Resp BP Pulse Ox 98.1 F 124 H 18 166/92 H 96 03/23/17 14:14 03/23/17 14:14 03/23/17 14:14 03/23/17 14:14 03/23/17 14:14 Oxygen Delivery Method Room Air Weight: 95.4 kg Body Mass Index (BMI) 30.2 Finger Stick Blood Glucose 164 Intake and Output for Last 24 Hours 03/21/17 03/22/17 03/23/17 23:59 23:59 23:59 Intake Total 2743.9 / 2743.9 2300 / 2300 Output Total 1950 / 1950 1600 / 1600 Balance 793.9 / 793.9 700 / 700 Laboratory Tests Past 24 Hrs 03/22/17 03/23/17 03/23/17 22:05 05:25 05:25 WBC 9.4 RBC 5.23 Hgb 17.2 H Hct 47.9 MCV 91.6 MCH 32.9 H MCHC 35.9 RDW 13.1 RDW Differential 43.3 Plt Count 263 MPV 11.0 Immature Gran % (Auto) 0.300 Neut % (Auto) 66.6 Lymph % (Auto) 19.8 Calhoun % (Auto) 12.3 H Eos % (Auto) 0.7 Baso % (Auto) 0.3 Absolute Neuts (auto) 6.3 Absolute Lymphs (auto) 1.87 Total Counted Not Reportable Sodium 134 L Potassium 3.0 L Chloride 103 Carbon Dioxide 19.0 L Anion Gap 12 BUN 11 Creatinine 0.74 Estim Creat Clear Calc 108.24 Est GFR (MDRD) Af Amer 138 Est GFR (MDRD) Non-Af 114 BUN/Creatinine Ratio 14.9 Glucose 276 H Calcium 8.5 Urine Opiates Screen POSITIVE H Urine Methadone Screen NEGATIVE Ur Barbiturates Screen NEGATIVE Ur Phencyclidine Scrn NEGATIVE Ur Amphetamines Screen NEGATIVE U Methamphetamin-MDMA NEGATIVE U Benzodiazepines Scrn NEGATIVE Urine Cocaine Screen NEGATIVE U Cannabinoids Screen NEGATIVE Ur Drug Screen Comment POC Glucose 03/23/17 03/23/17 03/23/17 17:05 11:42 07:33 POC Glucose 322 H 330 H 319 H 03/22/17 21:10 POC Glucose 389 H Assessment/Plan Active and Suspected Problems DKA (diabetic ketoacidoses) (Acute) #1 diabetic ketoacidosis-resolved at this time will continue to monitor blood sugars, patient's NPH insulin was increased to 30 units at breakfast and dinner, he was also placed on 10 units of NovoLog with each meal. His hemoglobin A1c was 11.1, I do not believe he is compliant at all with his diet concerning his diabetes. #2 chronic pain syndrome secondary to degenerative joint disease lumbar spine-patient was placed back on his methadone, he will not need a prescription when he is discharged to home as he should have methadone left from his prescription that was filled February 22, 2017 by his pain management doctor-at that time he got 150 10 mg methadone #3 hypertension-patient's hydrochlorothiazide was stopped, I asked him to remain off this medication when he is discharged home, I placed the patient on metoprolol 50 mg twice daily to take the place of his Inderal he is taking at home-I do not believe the Inderal was dosed correctly to control his blood pressure, he will remain on lisinopril when he is discharged home #4 tachycardia-probably secondary to beta-sharon withdrawal but also may have to do with narcotic withdrawal although patient does not exhibit any symptoms of abel narcotic withdrawal, again I have started the patient on metoprolol to take the place of his Inderal #5 noncompliance with medical regimen concerning his diabetes-patient will need further diabetic teaching, his states that he set up to see informatics educator as an outpatient Code Visit Inpatient E&M: [id number] [facility]
--- NOTE | 2017-03-23 19:40 | PN_ITS ---
Patient Problems: Active and Suspected Problems DKA (diabetic ketoacidoses) (Acute) Subjective: Patient was seen and examined today, he refused to participate with physical therapy today, when I went in to see him late this afternoon and his was present in the room, I told him that he could go home today if he was able to walk, patient was unable to walk without assistance, felt uncomfortable with him being discharged home and I agreed. Patient's IV fluids were stopped today, he is not taking orals adequately and his blood sugars are down but still elevated. I found out today through some phone calls that I made, patient receives a chronic methadone prescription from a [facility] pain management physician for chronic low back pain which he states is secondary to a failed back surgery. He uses 150 count 10 mg methadone's per month-one 5 times a day on a programmed basis, patient has not been on this medication since he's been in the hospital, he is only been receiving IV morphine and OxyIR as needed. In addition, patient appear tachycardic this evening, he has not been receiving his beta-sharon which he takes at home. I decided to place the patient on metoprolol and restart his methadone at 10 mg 4 times a day. Hopefully patient will be more stable as far as his ambulation is concerned and will be able to be discharged tomorrow. In addition, I had a conversation with his and the patient this afternoon, in April 2016, he was given an application to apply for Medicaid which he did not fill out. In addition, patient ran out of the 7030 insulin which he stated at that time he could afford, and just did not bother to go back to [facility] to get 7030 insulin. Patient stated to me yesterday that he was placed on Levemirr but he could not afford Levemir. At that time, I placed him on NPH insulin which she can obtain [id number] at [facility]. Patient gets his regular insulin at [facility] presently and has syringes at home. - Physical Exam General: Alert, Oriented x3, Cooperative, No apparent distress, Well developed, Well nourished HEENT: Atraumatic, PERRLA, EOMI, Normocephalic Oral: Moist Mucosa Neck: Supple, No JVD, Negative Carotid Bruits, No Nuchal Rigidity, Trachea Midline Lungs: Clear to auscultation, Normal air movement, No rhonchi, No wheeze, No rales Cardiovascular: Regular rate, Regular Rhythm, No murmurs, PMI Normal, No rub noted, No Gallop, Tachycardic Abdomen: Bowel Sounds Present, Soft, Non Tender, Non-Distended Extremities: No clubbing, No cyanosis, No edema, Capillary Refill Less than 3 Seconds Skin: No rashes, No breakdown Musculoskeletal: No Tenderness to Palpation of Joints or Extremities Neurological: Cranial nerves II-XII grossly intact, Neuro grossly intact, Muscle tone normal, Sensory exam intact to light touch and pain Psych/Mental Status: Normal Affect, Appropriate, Alert and oriented to time, place, person, mood and affect Vital Signs Temp Pulse Resp BP Pulse Ox 98.1 F 124 H 18 166/92 H 96 03/23/17 14:14 03/23/17 14:14 03/23/17 14:14 03/23/17 14:14 03/23/17 14:14 Oxygen Delivery Method Room Air Weight: 95.4 kg Body Mass Index (BMI) 30.2 Finger Stick Blood Glucose 164 Intake and Output for Last 24 Hours 03/21/17 03/22/17 03/23/17 23:59 23:59 23:59 Intake Total 2743.9 / 2743.9 2300 / 2300 Output Total 1950 / 1950 1600 / 1600 Balance 793.9 / 793.9 700 / 700 Laboratory Tests Past 24 Hrs 03/22/17 03/23/17 03/23/17 22:05 05:25 05:25 WBC 9.4 RBC 5.23 Hgb 17.2 H Hct 47.9 MCV 91.6 MCH 32.9 H MCHC 35.9 RDW 13.1 RDW Differential 43.3 Plt Count 263 MPV 11.0 Immature Gran % (Auto) 0.300 Neut % (Auto) 66.6 Lymph % (Auto) 19.8 Wagoner % (Auto) 12.3 H Eos % (Auto) 0.7 Baso % (Auto) 0.3 Absolute Neuts (auto) 6.3 Absolute Lymphs (auto) 1.87 Total Counted Not Reportable Sodium 134 L Potassium 3.0 L Chloride 103 Carbon Dioxide 19.0 L Anion Gap 12 BUN 11 Creatinine 0.74 Estim Creat Clear Calc 108.24 Est GFR (MDRD) Af Amer 138 Est GFR (MDRD) Non-Af 114 BUN/Creatinine Ratio 14.9 Glucose 276 H Calcium 8.5 Urine Opiates Screen POSITIVE H Urine Methadone Screen NEGATIVE Ur Barbiturates Screen NEGATIVE Ur Phencyclidine Scrn NEGATIVE Ur Amphetamines Screen NEGATIVE U Methamphetamin-MDMA NEGATIVE U Benzodiazepines Scrn NEGATIVE Urine Cocaine Screen NEGATIVE U Cannabinoids Screen NEGATIVE Ur Drug Screen Comment POC Glucose 03/23/17 03/23/17 03/23/17 17:05 11:42 07:33 POC Glucose 322 H 330 H 319 H 03/22/17 21:10 POC Glucose 389 H Assessment/Plan Active and Suspected Problems DKA (diabetic ketoacidoses) (Acute) #1 diabetic ketoacidosis-resolved at this time will continue to monitor blood sugars, patient's NPH insulin was increased to 30 units at breakfast and dinner , he was also placed on 10 units of NovoLog with each meal. His hemoglobin A1c was 11.1, I do not believe he is compliant at all with his diet concerning his diabetes. #2 chronic pain syndrome secondary to degenerative joint disease lumbar spine- patient was placed back on his methadone, he will not need a prescription when he is discharged to home as he should have methadone left from his prescription that was filled February 22, 2017 by his pain management doctor-at that time he got 150 10 mg methadone #3 hypertension-patient's hydrochlorothiazide was stopped, I asked him to remain off this medication when he is discharged home, I placed the patient on metoprolol 50 mg twice daily to take the place of his Inderal he is taking at home-I do not believe the Inderal was dosed correctly to control his blood pressure, he will remain on lisinopril when he is discharged home #4 tachycardia-probably secondary to beta-sharon withdrawal but also may have to do with narcotic withdrawal although patient does not exhibit any symptoms of abel narcotic withdrawal, again I have started the patient on metoprolol to take the place of his Inderal #5 noncompliance with medical regimen concerning his diabetes-patient will need further diabetic teaching, his states that he set up to see idea worker as an outpatient Code Visit Inpatient E&M: 28190 [facility] Hosp L3
[2017-03-23] MEDS: Metoprolol Tartrate 50 MG Tablet PO (21:26)
[2017-03-24 01:26] LABS: Bedside Glucose 348 mg/dL (70-110)
[2017-03-24 01:34] VITALS: BP 147/89; PULSE 98; RESP 18; TEMP 36.3; O2SAT 97
[2017-03-24 06:06] LABS: Bedside Glucose 304 mg/dL (70-110)
[2017-03-24 06:42] LABS: Anion Gap 11 (5-15); BUN 12 mg/dL (7-18); BUN/Creat Ratio 21.5 RATIO (10-20); Calcium,Total 9.1 mg/dL (8.5-10.1); Chloride 100 mmol/L (98-107); Creatinine, Serum 0.56 mg/dL (0.70-1.30); EST Glomerular Filtration Rate 158 mL/min (>60); Est Glom Filt Rate - Afr Amer 191 mL/min (>60); Estimated Creatinine Clearance 143.03 ml/min; Glucose 286 mg/dL (74-106); Potassium 3.1 mmol/L (3.5-5.1); Sodium Level 134 mmol/L (136-145)
[2017-03-24 07:35] VITALS: BP 167/92; PULSE 122; RESP 18; TEMP 36.7; O2SAT 97
[2017-03-24] MEDS: Insulin NPH Human 100 UNITS/ML PEN 30 UNITS SC (07:50)
--- NOTE | 2017-03-24 08:55 | CASEMGMT ---
Social Work Note Placed call to Michael ARAGON to check on status of Medicaid application as per RN ENRRIQUE Hinojosa - the pt reported that he has completed a Medicaid application on his last admission and someone came by and picked it up. Was on hold for 30 minutes and confirmed with case in store banker that nothing has been submitted for processing. Will discuss with pt. Amberly Dowell, UTILITY SALES AND SERVICE MANAGER, QUALITY ASSURANCE INSPECTOR
[2017-03-24 09:35] VITALS: PULSE 122
[2017-03-24 09:57] LABS: Pathologist Review Reviewed
[2017-03-24 11:15] VITALS: PULSE 122
[2017-03-24] MEDS: Lisinopril 40 MG Tablet PO (11:15)
[2017-03-24] MEDS: Metoprolol Tartrate 50 MG Tablet PO (11:15)
[2017-03-24 11:51] LABS: Bedside Glucose 303 mg/dL (70-110)
--- NOTE | 2017-03-24 12:19 | DCINST_ITS ---
- Discharge Diagnoses Current Active Problems: Current Active and Chronic Problems DKA (diabetic ketoacidoses) (Acute) You will use the following diet at home:: Calorie/Carbohydrate Controlled ( specify 1200, 1400, etc) - 1800 calories/day Your food should be the consistency of: Regular Your liquids should be the consistency of: Regular/Thin Discharge Activity: Return to Normal Activity Call your doctor if you observe: Fever of 101 or Higher Instructions: How to Check Your Blood Sugar, Using Injected Insulin, Diabetes: Understanding Carbohydrates, Eating Out When You Have Diabetes, Diabetes: Inspecting Your Feet, Diabetes: Caring for Your Body, Diabetes: Sick-Day Plan Allergies/Adverse Reactions: Allergies No Known Allergies Allergy (Verified 03/21/17 21:56) Medications to take at Discharge Lisinopril [Zestril] 40 mg PO DAILY 04/23/16 Methadone HCl 30 mg PO Q8H PRN PRN 04/23/16 Nitroglycerin [Nitrostat] 0.4 mg SL PRN PRN 04/23/16 ALPRAZolam [Xanax] 0.5 mg PO BID PRN PRN 09/16/16 Cyclobenzaprine [Flexeril] 10 mg PO TID PRN #20 tab 03/02/17 Acetaminophen [Tylenol Tablet] 500 mg PO Q4H PRN PRN tablet 03/08/17 Insulin NPH Human [Humulin N Pen] 30 units SC BIDBRS pen 03/24/17 Insulin Regular, Human [Novolin R] 10 unit SC TIDCM #0 03/24/17 Metoprolol Tartrate [Lopressor (beta sharon)] 50 mg PO BID #60 tab 03/24/17 The following prescriptions were given: Metoprolol Tartrate [Lopressor (beta sharon)] 50 mg PO BID #60 tab Primary Care Physician: Luis Starr DO [Primary Care Provider] - Within 2 Weeks Proposed Discharge Date: 03/24/17
--- NOTE | 2017-03-24 12:19 | PCM.DC.SUM ---
Discharge Date and Diagnosis - Problem List Patient Problems: Active and Suspected Problems Right flank pain (Acute) DKA (diabetic ketoacidoses) (Acute) Date of Admission: 03/22/17 Date of Discharge: 03/24/17 - Primary Discharge Diagnosis Active and Suspected Problems Right flank pain (Acute) DKA (diabetic ketoacidoses) (Acute) - Secondary Discharge Diagnosis Chronic Problems Cardiomegaly (Chronic) DM type 2 (diabetes mellitus, type 2) (Chronic) HTN (hypertension) (Chronic) Tobacco use disorder (Chronic) Opiate dependence (Chronic) Pericardial effusion (Chronic) HLD (hyperlipidemia) (Chronic) Hospital Course and Treatment Imaging Results: Clinical Impression(s) from Imaging Studies Chest X-Ray 03/21/17 22:08 IMPRESSION: Normal x-ray examination of the chest. Electronically Signed: Dayton Forrest MD at 23:14 EST , Service support , Operations: None Procedures: None Summary of Care Provided: The patient is a 61 year old M presents with right flank pain. Patient was actually noted to be in diabetic ketoacidosis. Patient was having nausea and vomiting had not been taking his insulin for 3 days prior. Patient was admitted and started on insulin drip. Patient's DKA resolved and patient was subsequently transferred to the floor. Patient blood sugars have remained a 2-300 range. Patient's hemoglobin A1c is 11. Question of the patient is actually utilizing his insulin despite but he is saying that he had not used it for 3 days. Patient has been previously recommended to take Levemir but states that he actually has an as well as are at home. States he does not need any at home. So patient will be discharged with 30 units of NPH twice daily +10 units of regular insulin with meals. Patient instructed to keep a log of his blood sugars and to present those to his primary care physician to see how further better his insulin regimen could be optimized. Patient did have right flank pain. Patient had a CAT scan on the eighth that showed a 3 mm stone in the right kidney. Possible the patient may have passed a kidney stone that caused his pain. Given that was only 3 mm no surgical intervention would be necessary. Patient is feeling better from that perspective. Patient has been presented with Medicaid application. He and his state that there cannot fill that out on their own. We have given him opportunities to have that facility [facility] and here in the hospital but he has declined that service. Patient has chronic pain and sees a pain management doctor up at [facility]. Patient will continue to follow-up with him. Patient will not be receiving any pain medication from this hospitalization. Physical exam Vital Signs Height 1.78 m Weight: 95.4 kg Weight in Pounds 210.3 lbs Pulse Ox 97 Temperature 36.7 C Pulse Rate 122 Respiratory Rate 18 Blood Pressure [BP] 164/82 Blood Pressure 167/92 Blood Pressure Position [BP] Sitting Blood Pressure Position Sitting Patient is no acute distress and afebrile. Heart is regular rate and rhythm plus S1-S2 without any murmurs gallops or rubs. Lungs are clear to auscultation bilaterally. [] Discharge Diet: 1800 Calorie Control Diet Discharge Activity: Return to Normal Activity Call your doctor if you observe: Fever of 101 or Higher Home Medications: Medications to take at Discharge Lisinopril [Zestril] 40 mg PO DAILY 04/23/16 Methadone HCl 30 mg PO Q8H PRN PRN 04/23/16 Nitroglycerin [Nitrostat] 0.4 mg SL PRN PRN 04/23/16 ALPRAZolam [Xanax] 0.5 mg PO BID PRN PRN 09/16/16 Cyclobenzaprine [Flexeril] 10 mg PO TID PRN #20 tab 03/02/17 Acetaminophen [Tylenol Tablet] 500 mg PO Q4H PRN PRN tablet 03/08/17 Insulin NPH Human [Humulin N Pen] 30 units SC BIDBRS pen 03/24/17 Insulin Regular, Human [Novolin R] 10 unit SC TIDCM #0 03/24/17 Metoprolol Tartrate [Lopressor (beta sharon)] 50 mg PO BID #60 tab 03/24/17 Following Prescrptions Were Given to Patient: Metoprolol Tartrate [Lopressor (beta sharon)] 50 mg PO BID #60 tab Primary Care Physician: Luis Starr DO [Primary Care Provider] - Within 2 Weeks Patient Instructions: How to Check Your Blood Sugar, Using Injected Insulin, Diabetes: Understanding Carbohydrates, Eating Out When You Have Diabetes, Diabetes: Inspecting Your Feet, Diabetes: Caring for Your Body, Diabetes: Sick-Day Plan Disposition: Home Minutes spent on discharge:: 35 Patient Condition:: Good Meaningful Use Info Meaningful Use Diagnoses (Choose all that apply): None applicable Code Visit Inpatient E&M: 59099 Disch Hosp
--- NOTE | 2017-03-24 12:23 | DS.PCM_ITS ---
Discharge Date and Diagnosis - Problem List Patient Problems: Active and Suspected Problems Right flank pain (Acute) DKA (diabetic ketoacidoses) (Acute) Date of Admission: 03/22/17 Date of Discharge: 03/24/17 - Primary Discharge Diagnosis Active and Suspected Problems Right flank pain (Acute) DKA (diabetic ketoacidoses) (Acute) - Secondary Discharge Diagnosis Chronic Problems Cardiomegaly (Chronic) DM type 2 (diabetes mellitus, type 2) (Chronic) HTN (hypertension) (Chronic) Tobacco use disorder (Chronic) Opiate dependence (Chronic) Pericardial effusion (Chronic) HLD (hyperlipidemia) (Chronic) Hospital Course and Treatment Imaging Results: Clinical Impression(s) from Imaging Studies Chest X-Ray 03/21/17 22:08 IMPRESSION: Normal x-ray examination of the chest. Electronically Signed: Dayton Forrest MD at 23:14 EST , Service support , Operations: None Procedures: None Summary of Care Provided: The patient is a 61 year old M presents with right flank pain. Patient was actually noted to be in diabetic ketoacidosis. Patient was having nausea and vomiting had not been taking his insulin for 3 days prior. Patient was admitted and started on insulin drip. Patient's DKA resolved and patient was subsequently transferred to the floor. Patient blood sugars have remained a 2- 300 range. Patient's hemoglobin A1c is 11. Question of the patient is actually utilizing his insulin despite but he is saying that he had not used it for 3 days. Patient has been previously recommended to take Levemir but states that he actually has an as well as are at home. States he does not need any at home. So patient will be discharged with 30 units of NPH twice daily +10 units of regular insulin with meals. Patient instructed to keep a log of his blood sugars and to present those to his primary care physician to see how further better his insulin regimen could be optimized. Patient did have right flank pain. Patient had a CAT scan on the eighth that showed a 3 mm stone in the right kidney. Possible the patient may have passed a kidney stone that caused his pain. Given that was only 3 mm no surgical intervention would be necessary. Patient is feeling better from that perspective. Patient has been presented with Medicaid application. He and his state that there cannot fill that out on their own. We have given him opportunities to have that facility [facility] and here in the hospital but he has declined that service. Patient has chronic pain and sees a pain management doctor up at [facility]. Patient will continue to follow-up with him. Patient will not be receiving any pain medication from this hospitalization. Physical exam Vital Signs Height 1.78 m Weight: 95.4 kg Weight in Pounds 210.3 lbs Pulse Ox 97 Temperature 36.7 C Pulse Rate 122 Respiratory Rate 18 Blood Pressure [BP] 164/82 Blood Pressure 167/92 Blood Pressure Position [BP] Sitting Blood Pressure Position Sitting Patient is no acute distress and afebrile. Heart is regular rate and rhythm plus S1-S2 without any murmurs gallops or rubs. Lungs are clear to auscultation bilaterally. [] Discharge Diet: 1800 Calorie Control Diet Discharge Activity: Return to Normal Activity Call your doctor if you observe: Fever of 101 or Higher Home Medications: Medications to take at Discharge Lisinopril [Zestril] 40 mg PO DAILY 04/23/16 Methadone HCl 30 mg PO Q8H PRN PRN 04/23/16 Nitroglycerin [Nitrostat] 0.4 mg SL PRN PRN 04/23/16 ALPRAZolam [Xanax] 0.5 mg PO BID PRN PRN 09/16/16 Cyclobenzaprine [Flexeril] 10 mg PO TID PRN #20 tab 03/02/17 Acetaminophen [Tylenol Tablet] 500 mg PO Q4H PRN PRN tablet 03/08/17 Insulin NPH Human [Humulin N Pen] 30 units SC BIDBRS pen 03/24/17 Insulin Regular, Human [Novolin R] 10 unit SC TIDCM #0 03/24/17 Metoprolol Tartrate [Lopressor (beta sharon)] 50 mg PO BID #60 tab 03/24/17 Following Prescrptions Were Given to Patient: Metoprolol Tartrate [Lopressor (beta sharon)] 50 mg PO BID #60 tab Primary Care Physician: Luis Starr DO [Primary Care Provider] - Within 2 Weeks Patient Instructions: How to Check Your Blood Sugar, Using Injected Insulin, Diabetes: Understanding Carbohydrates, Eating Out When You Have Diabetes, Diabetes: Inspecting Your Feet, Diabetes: Caring for Your Body, Diabetes: Sick- Day Plan Disposition: Home Minutes spent on discharge:: 35 Patient Condition:: Good Meaningful Use Info Meaningful Use Diagnoses (Choose all that apply): None applicable Code Visit Inpatient E&M: 78892 Disch Hosp
[2017-03-24 13:00] VITALS: BP 148/95; PULSE 105; RESP 16; TEMP 36.6; O2SAT 99
== END 2017-03-24 13:19 | disposition home or self-care (01) | DRG 638 ==
LOC: ED 22:13 → ICU 03-22 02:32 → MS3 03-22 13:04
PROVIDERS: Internal Medicine; Admitting Provider Internal Medicine; Emergency Provider Emergency Medicine; Family Provider Student in an Organized Health Care Education/Training Program; PCP Student in an Organized Health Care Education/Training Program
DX: E11.10 Type 2 diabetes mellitus with ketoacidosis without coma (principal); F11.20 Opioid dependence, uncomplicated; N17.9 Acute kidney failure, unspecified; E87.1 Hypo-osmolality and hyponatremia; R00.0 Tachycardia, unspecified; E78.5 Hyperlipidemia, unspecified; I10 Essential (primary) hypertension; G89.4 Chronic pain syndrome; I51.7 Cardiomegaly; M47.816 Spondylosis without myelopathy or radiculopathy, lumbar region; F17.200 Nicotine dependence, unspecified, uncomplicated; Z91.19 Patient's noncompliance with other medical treatment and regimen; Z79.4 Long term (current) use of insulin
CPT/HCPCS: 36415; 71045; 80048; 80076; 80307; 80320; 81001; 82009; 82803; 82962; 83036; 83735; 84100; 84484; 85025; 87040; 87641; 93005; 94640; 97162; 97166; 97530; 97802; 99285; J7030; J7040; A4216; G0480; J2405; J7799

== ENCOUNTER → 2017-10-08 13:51 | Outpatient (CLI) | payer SELFPAY | LOC: PSN 13:53 | PROVIDERS: Family Provider Student in an Organized Health Care Education/Training Program; PCP Student in an Organized Health Care Education/Training Program; Visit Provider Nurse Practitioner Adult Health | DX: R06.02 Shortness of breath (principal); R60.0 Localized edema | CPT/HCPCS: 93225; 93226 ==

== ENCOUNTER 2018-07-10 15:02 | Inpatient (IN) | payer MEDICAID, SELFPAY ==
[2018-07-10] VITALS (26 sets, daily range): BP systolic 88–122; BP diastolic 61–78; PULSE 58–74; RESP 8–20; TEMP 36.1–36.7; O2SAT 85–100; BMI 29.5; BMI 16.6; BMI 35.2; BMI 35.3
--- NOTE | 2018-07-10 15:14 | EKG12_ITS ---
Test Reason : SOB Blood Pressure : / mmHG Vent. Rate : 058 BPM Atrial Rate : 058 BPM P-R Int : 172 ms QRS Dur : 108 ms QT Int : 468 ms P-R-T Axes : 002 -35 004 degrees QTc Int : 459 ms Sinus bradycardia Left axis deviation Minimal voltage criteria for LVH, may be normal variant Abnormal ECG Confirmed by STAR MARTI, YINA ([id number]), film editor supervisor LAYLA BRIAN ([id number]) on 07/12/2018 11:45:22 AM Referred By: Natasha Abreu Confirmed By:YINA GRAVES MD
--- NOTE | 2018-07-10 15:14 | RAD_ITS ---
STUDY: X-RAY CHEST REASON FOR EXAM: Male, 62 years old. Cough. TECHNIQUE: Single frontal view of the chest. COMPARISON: March 21, 2017 FINDINGS: There is low volume inspiration with bibasilar atelectasis. There is no demonstrated pleural abnormality. There is stable cardiomegaly. Normal mediastinum and lily. Normal visualized pulmonary arteries. There is atherosclerotic calcification of the aortic arch with tortuosity. Normal visualized thoracic spine. Normal visualized ribs, clavicles, and shoulders. There is no demonstrated abnormality of the visualized soft tissue structures of the upper abdomen. RAD/Chest 1 View (Portable) IMPRESSION: Cardiomegaly with low volume inspiration and bibasilar atelectasis. No acute finding. Electronically Signed: Jonnie Dia MD at 15:50 EDT , Service support ,
--- NOTE | 2018-07-10 15:17 | ED.DCSUM_ITS ---
- ER Visit Summary Date of Service: 07/10/18 Chief Complaint: Cough, shortness of breath History of Present Illness: The patient is a 62 M presents to the emergency department because of shortness of breath. Patient does have history of underlying lung disease. He does smoke. Over the past month, he states he had some worsening shortness of breath, but over the past 3 days it is definitely worsened. His states that he was more confused today. The patient is on methadone and Xanax. He denies abusing these medications. On squad arrival, he was found to be hypoxic with saturations in the low 80s. He also had diminished respiratory drive. He was placed on oxygen and brought in for further evaluation. He does not think he had fever. He denies any chest pain. He has had productive sputum. The patient has had pneumonia before and states this feels similar. Physical Examination: Vital signs reviewed General: Well-nourished, well-developed Head: Normocephalic, atraumatic Eyes: Pupils equal and reactive, extraocular muscles intact Neck, supple, no lymphadenopathy Heart: Regular rate and rhythm Respiratory: No distress, rhonchi in the right lower lung base Abdomen: Soft, nontender, nondistended, no peritoneal signs Back: Nontender Extremities: Nontender, no edema, no cords Skin: Normal color no rash Neuro: Lethargic but easily arousable, answers questions appropriately, no focal or lateralizing deficits Test Results: [] Emergency Department Course and Treatment: The patient was lethargic but easily arousable. He was initially hypoxic on arrival, but did have increased oxygenation with nasal cannula. His presentation did seem like a complex picture. He had rhonchi in his right base with productive sputum. He does not think he had a fever. His x-ray does not show definitive infiltrate, but there is diminished lung volumes. Patient was more obtunded as he sat in the room. I did obtain a blood gas which showed hypercapnic respiratory failure. Labs were otherwise unremarkable except for acute renal injury. The patient was given 0.4 mg of Narcan as he is on methadone. He had rather significant response, increase in respiratory drive, but then became acutely nauseated. He took his BiPAP off. After about 15 minutes, he was much more calm. He is able to be placed on the BiPAP again. His respirations were now stable in the 15-20 range. He was not hypoxic. The patient was covered with broad-spectrum antibiotics due to concern for community-acquired pneumonia. Patient was comfortable on his BiPAP with increased respiratory drive. His repeat blood gas did show im provement. At this point, I do feel that it is safe to hold on intubation as he has shown improvement and his pH is improving and his CO2 is decreasing. The patient will be admitted to the hospital. Treatment Plan: [] Disposition: Admission Impression: 1. Acute hypercapnic respiratory failure 2. Community-acquired pneumonia 3. Acute kidney injury This note was generated with [employer] dictation software. It may contain incorrect words, spelling, and punctuation that were not noted in review of the chart prior to signing ED Disposition - Plan for ED Patient:
[2018-07-10] MEDS: MethylPREDNISolone 125 MG/2 ML Vial IV (15:24)
[2018-07-10] MEDS: Ipratropium/Albuterol Sulfate 3 ML AMPUL.NEB INHALATION (15:39)
[2018-07-10] MEDS: Albuterol 2.5 MG/3 ML VIAL.NEB. INHALATION ×3 (15:45→16:17)
[2018-07-10 15:46] LABS: Anion Gap 4 (5-15); BUN 32 mg/dL (7-18); BUN/Creat Ratio 20.1 RATIO (10-20); Calcium,Total 8.3 mg/dL (8.5-10.1); Chloride 102 mmol/L (98-107); Creatinine, Serum 1.59 mg/dL (0.70-1.30); EST Glomerular Filtration Rate 47 mL/min (>60); Est Glom Filt Rate - Afr Amer 57 mL/min (>60); Estimated Creatinine Clearance 35.76 ml/min; Glucose 110 mg/dL (74-106); Sodium Level 136 mmol/L (136-145)
[2018-07-10 15:48] LABS: Absolute Lymphocyte Count 2.71 X10^3/ul (0.83-4.51); Absolute Neutrophil Count 4.6 X10^3/uL (2.0-7.7); Basophil# 0.06 X10^3/uL; Basophil% 0.7 % (0-1); Eosinophil# 0.31 X10^3/uL; Eosinophils% 3.6 % (0-5); Hematocrit 43.4 % (40-54); Hemoglobin 14.9 g/dl (13.0-16.5); Lymphocyte # 2.71 X10^3/ul (4.0); Lymphocyte % 31.2 % (19-41); Mean Corp Hgb Conc 34.3 g/gl (32-36); Mean Corpuscular Hgb 33.4 pg (27.0-32.0); Mean Corpuscular Volume 97.3 fL (80-94); Mean Platelet Vol. 11.2 fl (6.2-12.0); Monocyte# 1.03 X10^3/uL; Monocyte% 11.9 % (0-10); Neutrophil # 4.56 X10^3/uL (2.7-7.7); Neutrophil % 52.4 % (47-70); Platelet Count 200 K/mm3 (150-450); RBC Distribution Width SD 46.1 fl (35.1-43.9); Red Blood Count 4.46 M/mm3 (4.6-6.2); White Blood Count 8.7 K/mm3 (4.4-11.0)
[2018-07-10 15:50] LABS: Allen Test POS; Base Excess -3 mmol/L (-2 to +2); Bicarbonate 25.1 mmol/L (22-26); Blood Gas Specimen Type ART; O2 Delivery Device Nasal Can; PO2 77 mmHG (75-100); SITE R Radial; SO2 91 % (95-99); Time Given 1530; Total Carbon Dioxide 27 mmol/L; pH 7.18 (7.35-7.45)
[2018-07-10 15:51] LABS: Lactic Acid 1.6 mmol/L (0.4-2.0); POSITIVE COUNT NO; POSITIVE DIFFERENTIAL NO; POSITIVE MORPHOLOGY NO
[2018-07-10] MEDS: Naloxone 0.4 MG/ML Syringe IV (15:52)
[2018-07-10] MEDS: Ondansetron 4 MG/2 ML Vial IV (16:08)
--- NOTE | 2018-07-10 16:09 | CPS ---
patient given narcan, woke up slightly on the bipap, complained of nausea and leg cramps. Bipap removed.
--- NOTE | 2018-07-10 16:13 | NURSING ---
DR CANTU FOR DR FINCH
--- NOTE | 2018-07-10 16:23 | NURSING ---
ICU PAINTSIL HYPERCAPNEIC RESP FAILURE
[2018-07-10] MEDS: Ceftriaxone 1 GM/50 ML BAG IV (16:30)
--- NOTE | 2018-07-10 16:42 | NURSING ---
ICU 1
--- NOTE | 2018-07-10 16:44 | CPS ---
1540: critical ABG results given to Dr. Ricketts by Jordana, SPECTRAL SCIENTIST
[2018-07-10 16:45] LABS: Base Excess -1 mmol/L (-2 to +2); Bicarbonate 25.9 mmol/L (22-26); Blood Gas Specimen Type ART; EPAP 6; FI02 40; IPAP 16; PO2 87 mmHG (75-100); RR 12; SITE L Radial; SO2 95 % (95-99); Time Given 1632; Total Carbon Dioxide 28 mmol/L; pCO2 56.7 mmHg (35-45); pH 7.27 (7.35-7.45)
--- NOTE | 2018-07-10 16:45 | PCM.HP.STD ---
<Sathish Collazo - Last Filed: 07/10/18 16:45> Problem List (1) Acute respiratory failure with hypoxia and hypercapnia Status: Acute (2) CHARLIE (acute kidney injury) Status: Acute (3) COPD exacerbation Status: Chronic (4) Chronically on opiate therapy Status: Chronic (5) Cardiomegaly Status: Chronic (6) DM type 2 (diabetes mellitus, type 2) Status: Chronic (7) HLD (hyperlipidemia) Status: Chronic (8) HTN (hypertension) Status: Chronic (9) Tobacco use disorder Status: Chronic History of Present Illness Date of Admission: 07/10/18 Chief Complaint: SOB The patient is a 62 year old M with past medical history of type 2 diabetes, long-term smoker, chronic back pain on chronic methadone, anxiety disorder chronically on Xanax, hypertension, who presents to the emergency room with shortness of breath. History was obtained from his as the patient was too lethargic to respond appropriately to questions while I was interviewing him. Approximately 4 hours prior to coming to the emergency room his states that he seemed fine like his normal self, he was sitting at the table drinking coffee when he suddenly stopped breathing and fell over. She called EMS who brought him to the emergency department. He was found to be very hypoxic at 85% on room air, ABG was obtained and demonstrated significant acidosis with a pH of 7.18 and increased CO2 at 68. He was placed on bipap. He was given narcan and beacme very restless pulling at the bipap mask and with restless legs. states he did not take any extra doses of his methadone or Xanax today, however he did take 3 doses of metoprolol this morning as his blood pressure was higher than usual. She also states that the patient smoked 2 or 3 cigarettes this morning, and also has smoked marijuana recently. She denies any other drug use. The patient has smoked since age 25 about a pack and a half a day, recently cut down to just over half a pack per day. He has never formally been diagnosed with COPD, however he follows a lung doctor with the [facility]. The patient is very lethargic. He has a chronic cough which is no worse than normal. thinks that his lower extremities are more swollen than normal. He has no history of congestive heart failure. The patient does not use any oxygen at home, CPAP or BiPAP. After spending some time on the BiPAP in the emergency room he did become more arousable and his pH improved and PCO2 improved as well. He was able to later responded that he would like to be full code at this time. [] Past Medical History Past Medical History (Chronic Problems): Chronic Problems Chronically on opiate therapy (Chronic) COPD exacerbation (Chronic) Cardiomegaly (Chronic) DM type 2 (diabetes mellitus, type 2) (Chronic) HTN (hypertension) (Chronic) Tobacco use disorder (Chronic) Opiate dependence (Chronic) Pericardial effusion (Chronic) HLD (hyperlipidemia) (Chronic) Allergies No Known Allergies Allergy (Verified 07/10/18 15:09) Home Medications: Ambulatory Orders Medication Instructions Recorded Methadone HCl 10 mg PO 4X/DAY PRN 04/23/16 Nitroglycerin [Nitrostat] 0.4 mg SL PRN PRN 04/23/16 cycloBENZAPRine HCl [Flexeril] 10 mg PO TID PRN #20 tab 03/02/17 Acetaminophen [Tylenol Tablet] 500 mg PO Q4H PRN PRN tablet 03/08/17 Gabapentin [Neurontin] 600 mg PO TID PRN 07/10/18 Insulin NPH Human [Humulin N Pen] 35 units SC DAILY 07/10/18 Insulin Regular, Human [Novolin R] 2 - 10 unit SC TIDCM 07/10/18 Metoprolol Tartrate [Lopressor 50 mg PO BID 07/10/18 (beta sharon)] Sertraline HCl 150 mg PO DAILY 07/10/18 Surgical History: appendectomy, cholecystectomy, - - Back surgery, cholecystectomy, appendectomy. Psychiatric History: Anxiety Lives: Spouse/ Significant Other Smoking Status: Current every day smoker Tobacco Use: Cigarettes Alcohol: None Drugs: Marijuana - *Family History Maternal History Items: Diabetes, Hypertension Paternal History Items: Diabetes, Hypertension Review of Systems Constitutional: Denies: Chills, Fever, Weight Change HEENT: Denies: Head Aches, Sinus Congestion, Sinus Drainage Cardiovascular: Reports: Edema. Denies: Chest Pain, Chest Pressure, Heaviness, Light Headedness, Palpitations, Syncope Respiratory: Reports: Cough, Shortness of Breath, Shortness of breath at rest, Shortness of breath upon exertion. Denies: Sputum production, Wheezing Gastrointestinal: Denies: Abdominal Pain, Nausea, Vomiting Genitourinary: Denies: Dysuria Musculoskeletal: Denies: Joint Pain, Joint Tenderness Skin: Denies: Rash, Wounds Neurological: Denies: Numbness, Tingling, Focal weakness Psychiatric: Denies: Anxiety, Depression, Homicidal Ideations, Suicidal Ideations Hematologic/ Lymphatic: Denies: Easy Bruising, Easy Bleeding VTE Information - Inpt Only VTE Present on Admission: No VTE Mechan Device Prophylaxis: None VTE Pharm Prophylaxis ordered?: Yes Patient Problems: Active and Suspected Problems Acute respiratory failure with hypoxia and hypercapnia (Acute) - Physical Exam General: Alert, Confused, Lethargic HEENT: Atraumatic, PERRLA, EOMI, Normocephalic Neck: Supple, No JVD, Negative Carotid Bruits Lungs: Diminished, Rales, Rhonchi Cardiovascular: Regular rate, No murmurs Abdomen: Bowel Sounds Present, Soft, Non Tender, Obese Extremities: Capillary Refill Less than 3 Seconds, Edema - 2-3+ pitting edema with chronic vascular changes. Skin: No rashes, No breakdown Musculoskeletal: No Tenderness to Palpation of Joints or Extremities Neurological: Cranial nerves II-XII grossly intact Psych/Mental Status: Restless Vital Signs Temp Pulse Resp BP Pulse Ox 98.0 F 64 13 120/74 100 07/10/18 15:03 07/10/18 16:10 07/10/18 16:10 07/10/18 16:03 07/10/18 16:10 Oxygen Flow Rate (L/min) 45 Oxygen Delivery Method Bi-pap Weight: 115 lb 11.2 oz Body Mass Index (BMI) 16.6 Finger Stick Blood Glucose 164 Laboratory Tests Past 24 Hrs 07/10/18 07/10/18 07/10/18 15:15 15:15 15:15 WBC 8.7 RBC 4.46 L Hgb 14.9 Hct 43.4 MCV 97.3 H MCH 33.4 H MCHC 34.3 RDW 13.0 RDW Differential 46.1 H Plt Count 200 MPV 11.2 Immature Gran % (Auto) 0.200 Neut % (Auto) 52.4 Lymph % (Auto) 31.2 [place] % (Auto) 11.9 H Eos % (Auto) 3.6 Baso % (Auto) 0.7 Absolute Neuts (auto) 4.6 Absolute Lymphs (auto) 2.71 Total Counted Not Reportable Specimen Type Sample Site pH Bicarbonate Actual POC Total CO2 Base Excess O2 Saturation ABG pCO2 ABG pO2 Bradley Test O2 Delivery Device Liter Flow Blood Gas Notified Whom Blood Gas Notified Time Sodium 136 Potassium 4.0 Chloride 102 Carbon Dioxide 30.0 Anion Gap 4 L BUN 32 H Creatinine 1.59 H Estim Creat Clear Calc 35.76 Est GFR (MDRD) Af Amer 57 L Est GFR (MDRD) Non-Af 47 L BUN/Creatinine Ratio 20.1 H Glucose 110 H Lactic Acid 1.6 Calcium 8.3 L Troponin I < 0.015 07/10/18 15:39 WBC RBC Hgb Hct MCV MCH MCHC RDW RDW Differential Plt Count MPV Immature Gran % (Auto) Neut % (Auto) Lymph % (Auto) [place] % (Auto) Eos % (Auto) Baso % (Auto) Absolute Neuts (auto) Absolute Lymphs (auto) Total Counted Specimen Type ART Sample Site R Radial pH 7.18 L* Bicarbonate Actual 25.1 POC Total CO2 27 Base Excess -3 L O2 Saturation 91 L ABG pCO2 68.0 H* ABG pO2 77 Bradley Test POS O2 Delivery Device Nasal Can Liter Flow 2.0 Blood Gas Notified Whom ED MD Blood Gas Notified Time 1530 Sodium Potassium Chloride Carbon Dioxide Anion Gap BUN Creatinine Estim Creat Clear Calc Est GFR (MDRD) Af Amer Est GFR (MDRD) Non-Af BUN/Creatinine Ratio Glucose Lactic Acid Calcium Troponin I Assessment/Plan All Active Problems Acute respiratory failure with hypoxia and hypercapnia (Acute) Right flank pain (Acute) DKA (diabetic ketoacidoses) (Acute) Acute exacerbation of chronic low back pain (Acute) Bacteremia (Acute) Pneumonia (Acute) Ileus (Acute) Dehydration (Acute) Acute chest pain (Acute) D-dimer, elevated (Acute) Intractable nausea and vomiting (Acute) DKA (diabetic ketoacidoses) (Resolved) CHARLIE (acute kidney injury) (Acute) Chest pain (Acute) 1. Acute hypoxic / hypercapnic respiratory failure 2/2 presumed underlying COPD exacerbation and opiate/benzodiazepine use - initial O2 85% RA, ABG with pH 7.18, pCO2 68. Improved on bipap in the er to 7.27/56.7. Received 0.4 narcan with subsequent agitation. Lungs have rales and rhonchi on exam, CXR with low volume inspiration. Consider CTA chest to clarify, tachy would be masked 2/2 [employer] depressants and metoprolol overdose, he has LE edema, hx smoking, sudden onset of SOB at home per 's hx. No fever or leukocytosis, lactate negative, trop negative. Pt will continue bipap, narcan prn for increased lethargy as he is on methadone, solumedrol and aerosol therapy with azithromycin. There may be an underlying component of heart failure as well with rales and LE edema on exam - no hx. Will obtain BNP and echo, give lasix cautiously with CHARLIE. 2. CHARLIE - hold marilu. Will need lasix if this is cardiorenal from underlying chf as above. 3. Ongoing nicotine abuse - recently decreased to over 1/2 ppd, smoked 2-3 cigarettes this AM, has smoked 1.5 ppd since age 25. Unclear what the results were at his F pulmonary PFT test. Not on home aerosol therapy. 4. Chronic pain syndrome - chronically on Xanax, Methadone, flexeril for chronic back pain. 5. Marijuana abuse - did smoke last night. 6. HTN - pt took 3 doses of metoprolol this AM, bp is low normal. Hold. 7. DMt2 - continue insulin, add SSI, titrate to response. 8. Suspect underling EBONY - snores, htn, age, male (4) plus risk increases with xanax/opiates. Needs o/p sleep study. 9. Probably moderate protein calorie malnutrition - dietary eval for clarification, bmi 16. DVT ppx: Heparin DC planning: Likely needs home o2, PFTs, PSG, smoking cessation This patient was seen by Sathish Collazo PA-C under the supervision of Dr. Abreu. <Natasha Abreu - Last Filed: 07/10/18 19:15> Problem List (1) Chronically on opiate therapy Status: Chronic (2) Acute respiratory failure with hypoxia and hypercapnia Status: Acute (3) DM type 2 (diabetes mellitus, type 2) Status: Chronic Qualifiers: Diabetes mellitus long-term insulin use: with long-term use Diabetes mellitus complication status: with unspecified complications Qualified Code(s): E11.8 - Type 2 diabetes mellitus with unspecified complications; Z79.4 - penitentiary (current) use of insulin (4) HTN (hypertension) Status: Chronic Qualifiers: Hypertension type: essential hypertension Qualified Code(s): I10 - Essential (primary) hypertension (5) CHARLIE (acute kidney injury) Status: Acute History of Present Illness The patient is a 62 year old M [] Past Medical History Allergies No Known Allergies Allergy (Verified 07/10/18 15:09) - Physical Exam Vital Signs Temp Pulse Resp BP Pulse Ox 97 F L 59 L 13 91/61 98 07/10/18 17:00 07/10/18 18:00 07/10/18 18:00 07/10/18 18:00 07/10/18 18:00 Oxygen Flow Rate (L/min) 45 Oxygen Delivery Method Bi-pap Weight: 111.5 kg Body Mass Index (BMI) 35.2 Finger Stick Blood Glucose 164 Intake and Output for Last 24 Hours 07/08/18 07/09/18 07/10/18 23:59 23:59 23:59 Intake Total 331 / 331 Balance 331 / 331 Laboratory Tests Past 24 Hrs 07/10/18 07/10/18 07/10/18 15:15 15:15 15:15 WBC 8.7 RBC 4.46 L Hgb 14.9 Hct 43.4 MCV 97.3 H MCH 33.4 H MCHC 34.3 RDW 13.0 RDW Differential 46.1 H Plt Count 200 MPV 11.2 Immature Gran % (Auto) 0.200 Neut % (Auto) 52.4 Lymph % (Auto) 31.2 [place] % (Auto) 11.9 H Eos % (Auto) 3.6 Baso % (Auto) 0.7 Absolute Neuts (auto) 4.6 Absolute Lymphs (auto) 2.71 Total Counted Not Reportable Specimen Type Sample Site pH Bicarbonate Actual POC Total CO2 Base Excess O2 Saturation O2 % ABG pCO2 ABG pO2 Bradley Test Respiration Rate O2 Delivery Device Liter Flow EPAP IPAP Blood Gas Notified Whom Blood Gas Notified Time Sodium 136 Potassium 4.0 Chloride 102 Carbon Dioxide 30.0 Anion Gap 4 L BUN 32 H Creatinine 1.59 H Estim Creat Clear Calc 35.76 Est GFR (MDRD) Af Amer 57 L Est GFR (MDRD) Non-Af 47 L BUN/Creatinine Ratio 20.1 H Glucose 110 H Lactic Acid 1.6 Calcium 8.3 L Troponin I < 0.015 B-Natriuretic Peptide 07/10/18 07/10/18 07/10/18 15:15 15:39 16:39 WBC RBC Hgb Hct MCV MCH MCHC RDW RDW Differential Plt Count MPV Immature Gran % (Auto) Neut % (Auto) Lymph % (Auto) [place] % (Auto) Eos % (Auto) Baso % (Auto) Absolute Neuts (auto) Absolute Lymphs (auto) Total Counted Specimen Type ART ART Sample Site R Radial L Radial pH 7.18 L* 7.27 L Bicarbonate Actual 25.1 25.9 POC Total CO2 27 28 Base Excess -3 L -1 O2 Saturation 91 L 95 O2 % 40 ABG pCO2 68.0 H* 56.7 H ABG pO2 77 87 Bradley Test POS NA Respiration Rate 12 O2 Delivery Device Nasal Can Bi / C PAP Liter Flow 2.0 EPAP 6 IPAP 16 Blood Gas Notified Whom ED MD ED MD Blood Gas Notified Time 1530 1632 Sodium Potassium Chloride Carbon Dioxide Anion Gap BUN Creatinine Estim Creat Clear Calc Est GFR (MDRD) Af Amer Est GFR (MDRD) Non-Af BUN/Creatinine Ratio Glucose Lactic Acid Calcium Troponin I B-Natriuretic Peptide 44.0 POC Glucose 07/10/18 17:16 POC Glucose 173 H Assessment/Plan This patient was seen in conjunction with JERRELL Santana. I have independently interviewed and examined the patient and reviewed pertinent historical, laboratory, and other data. Please refer to JERRELL Santana note for his patient's presentation, findings, and recommendations. I have reviewed and his note and concur with his documentation CC: Altered mental status HPI: 62-year-old male with past medical history of COPD, chronic pain syndrome from back pain on chronic methadone, type II DM, hypertension who was brought in with altered mental status. She was taken from the as patient was lethargic. EMS was called to the patient's house and patient was said to have passed out with low pulse ox reading. Patient was said to be p.o. and reported as he kept trying to pass out. His blood sugar was 81. His SPO2 was 82% at home and he was placed on 4 L of oxygen. His repeat blood sugar came up to be 118. And his SPO2 improved to 98%. In the emergency department, patient was started on BiPAP, given 0.4 mg of Narcan. Patient had a significant response with increased respiratory drive and was not hypoxic. He said to have taken off his BiPAP and had restless legs as well as tremors. Patient later on settled down. ABG showed acute respiratory acidosis with elevated PCO2 of 68. His repeat ABG showed improvement in his PCO2 and his pH. PMHX: In addition to the above in the HPI, patient has history of anxiety PSHx: Status post appendectomy, cholecystectomy, back surgery FHX: Mother had DM, Hypertension, Father - DM, Hypertension SHX: Patient is a smoker, denies use of alcohol, uses marijuana Physical Exam: Vitals: Temperature is 98.0 F, heart rate is 64, blood pressure 95/69, respiratory rate is 10 SPO2 was 85% on room air Gen: On BiPAP, in mild respiratory distress, lethargic,, not pale, not jaundiced CVS:HS I +II, regular, no murmurs RESP: Rales at lung bases, rhonchorous breath sounds in the lung toribio GI: BS present and normal, soft, nontender, no palpable organs EXT:No edema Labs: BC count is 8.7, Hb is 14.9, platelet count 200, BMP is unremarkable except for creatinine 1.59, BUN is 32, lactic acid 1.6, troponin 0.015 ABG showed pH 7.18, PCO2 68, PO2 77, PT ABG shows pH of 7.27, PCO2 56.7 ASSESSMENT: 1. Acute metabolic encephalopathy secondary to hypercapnia and medication side effect 2. Acute hypoxic/hypercapneic respiratory failure 3. Acute COPD exacerbation 4. Acute kidney injury, prerenal secondary to dehydration 5. Type II DM 6. Hypertension 7. Nicotine dependence 8. Chronic back pain 9. Anxiety disorder Replacement. Polypharmacy Plan: Admit to ICU, monitor on BiPAP, breathing treatments, IV steroids, IV azithromycin Repeat ABG, IV fluids Nicotine replacement Hold methadone - may need to resumed at a lower dose Hold home insulin regimen, give Lantus 5 units nightly account of n.p.o. status Code Visit Inpatient E&M: 97236 Subs Hosp L2
--- NOTE | 2018-07-10 16:57 | CPS ---
Patient transported to ICU on BiPAP at this time.
[2018-07-10] MEDS: 0.9% Normal Saline 1,000 ML 100 ML IV ×2 (17:19→22:03)
[2018-07-10 17:26] LABS: Bedside Glucose 173 mg/dL (70-110)
--- NOTE | 2018-07-10 18:53 | CPS ---
changed mask size from medium to large
[2018-07-10 18:56] LABS: Allen Test POS; Base Excess -2 mmol/L (-2 to +2); Bicarbonate 25.6 mmol/L (22-26); Blood Gas Specimen Type ART; EPAP 8; FI02 30; IPAP 20; PO2 80 mmHG (75-100); RR 12; SITE R Radial; SO2 93 % (95-99); Time Given 1845; Total Carbon Dioxide 27 mmol/L; pCO2 62.3 mmHg (35-45); pH 7.22 (7.35-7.45)
[2018-07-10] MEDS: Naloxone 0.4 MG/ML Syringe 0.2 MG IV (19:29)
[2018-07-10] MEDS: 0.9% NaCl Peripheral Flush Adult/Peds IV (19:32)
[2018-07-10 20:16] LABS: Allen Test POS; Base Excess -1 mmol/L (-2 to +2); Bicarbonate 25.8 mmol/L (22-26); Blood Gas Specimen Type ART; EPAP 8; FI02 30; IPAP 20; PO2 71 mmHG (75-100); RR 16; SITE R Radial; SO2 91 % (95-99); Time Given 2005; Total Carbon Dioxide 27 mmol/L; pCO2 54.6 mmHg (35-45); pH 7.28 (7.35-7.45)
[2018-07-10] MEDS: Insulin Lispro 100 UNIT/ML INSULN.PEN SQ (21:32)
[2018-07-10] MEDS: Heparin Injection (Vial) 5,000 UNIT/ML VIAL 5000 UNIT SC (21:32)
[2018-07-10 21:46] LABS: Bedside Glucose 434 mg/dL (70-110)
--- NOTE | 2018-07-10 23:10 | CPS ---
pt taken off BiPAP by nursing for break.
[2018-07-11] VITALS (17 sets, daily range): BP systolic 87–140; BP diastolic 58–83; PULSE 59–83; RESP 13–20; TEMP 36.3–36.6; O2SAT 90–99
--- NOTE | 2018-07-11 01:38 | CPS ---
decreased IPAP for pt comfort and added heated humidity to BIPAP circuit.
[2018-07-11 05:10] LABS: Absolute Lymphocyte Count 0.73 X10^3/ul (0.83-4.51); Basophil# 0.01 X10^3/uL; Basophil% 0.1 % (0-1); Eosinophil# 0.01 X10^3/uL; Eosinophils% 0.1 % (0-5); Hematocrit 42.9 % (40-54); Hemoglobin 14.6 g/dl (13.0-16.5); Lymphocyte # 0.73 X10^3/ul (4.0); Lymphocyte % 8.2 % (19-41); Mean Corpuscular Hgb 32.4 pg (27.0-32.0); Mean Corpuscular Volume 95.1 fL (80-94); Mean Platelet Vol. 11.7 fl (6.2-12.0); Monocyte% 1.1 % (0-10); Neutrophil % 90.3 % (47-70); Platelet Count 180 K/mm3 (150-450); RBC Distribution Width CV 12.4 % (11.6-14.6); RBC Distribution Width SD 42.3 fl (35.1-43.9); Red Blood Count 4.51 M/mm3 (4.6-6.2); White Blood Count 8.9 K/mm3 (4.4-11.0)
[2018-07-11 05:12] LABS: POSITIVE COUNT NO; POSITIVE DIFFERENTIAL NO; POSITIVE MORPHOLOGY NO
[2018-07-11 05:29] LABS: ALB/GLOB Ratio 0.8 RATIO (0.9-2.4); AST(SGOT) 43 U/L (15-37); Alanine Aminotransfer ALT/SGPT 51 U/L (16-61); Albumin, Serum 3.1 g/dL (3.2-5.0); Alkaline Phosphatase 101 U/L (45-117); Anion Gap 10 (5-15); BUN 38 mg/dL (7-18); BUN/Creat Ratio 21.7 RATIO (10-20); Chloride 98 mmol/L (98-107); Creatinine, Serum 1.75 mg/dL (0.70-1.30); EST Glomerular Filtration Rate 42 mL/min (>60); Est Glom Filt Rate - Afr Amer 51 mL/min (>60); Estimated Creatinine Clearance 44.61 ml/min; Globulin 3.8 g/dL (2.2-4.2); Glucose 347 mg/dL (74-106); Protein, Total 6.9 g/dL (6.4-8.2); Sodium Level 133 mmol/L (136-145)
--- NOTE | 2018-07-11 05:50 | RAD_ITS ---
STUDY: X-RAY CHEST REASON FOR EXAM: Male, 63 years old. Short of breath TECHNIQUE: Portable chest COMPARISON: 07/10/2018 FINDINGS: There is stable mild right lower lobe infiltrate and subsegmental atelectasis There is worsening left lower lobe retrocardiac focal opacity. The lungs are clear and expanded. There is no demonstrated pleural abnormality. Normal size heart. Normal mediastinum and lily. Normal visualized pulmonary arteries. Normal visualized aortic arch and descending thoracic aorta. Normal visualized thoracic spine. Normal visualized ribs, clavicles, and shoulders. There is no demonstrated abnormality of the visualized soft tissue structures of the upper abdomen. There is a stable distended stomach. RAD/Chest 1 View (Portable) IMPRESSION: There is stable mild right lower lobe infiltrate and subsegmental atelectasis There is worsening left lower lobe retrocardiac focal opacity likely representing consolidation due to pneumonia and/or atelectasis. Stable distended stomach Electronically Signed: Ricky Brown, at 7:17 EDT Tel , Service support ,
--- NOTE | 2018-07-11 06:34 | CON.PCM_ITS ---
Reason for Consult Date of Consultation: 07/11/18 Reason for Consultation: Respiratory failure History of Present Illness: The patient is a 63-year-old male, with a history as outlined below, who presented to the emergency department on July 10 with progressive shortness of breath and altered mental state. The patient does report that in the day leading up to his hospitalization, he felt more short of breath than previous and also reported feeling more tired and falling asleep easily. He is an active smoker of 0.5 packs of cigarettes per day and has been smoking for approximately 40 years. He does believe that he previously underwent pulmonary function studies through the [facility]. However, it has been quite some time. He does not currently see a medical staff specialist. The patient is prescribed albuterol as needed on an outpatient basis and reports that he utilizes said inhaler approximately 4 times per day. He does report the presence of intermittent chest tightness and wheezing along with a chronic, productive cough. He is currently prescribed a multitude of different sedating medications for pain related issues, including methadone, Flexeril and Neurontin. He does report having been told by his that he actively snores when sleeping. He also endorses the presence of nonrestorative sleep, daytime hypersomnolence and frequent napping. Despite this, the patient has never undergone a formal sleep study. On presentation to the emergency department, the patient was noted to be afebrile and hemodynamically stable. He was initially documented to be saturating 85% on room air. Laboratory evaluation revealed no evidence of a leukocytosis. Initial arterial blood gas obtained on 2 L/min revealed a pH of 7.18 with a corresponding PCO2 of 68 and PO2 of 77. Chemistry profile revealed evidence of acute kidney injury with a creatinine of 1.59. Lactate was within normal limits. Troponin and BNP were both negative. Plain film chest x-ray revealed no evidence of focal infiltrate. The patient did receive Narcan in the emergency department with improvement in mentation noted. He was subsequently placed on BiPAP and administered antibiotics. The patient was then transferred to the medical intensive care unit for ongoing management. Past Medical History Past Medical History (Chronic Problems): Chronic Problems Chronically on opiate therapy (Chronic) COPD exacerbation (Chronic) Cardiomegaly (Chronic) DM type 2 (diabetes mellitus, type 2) (Chronic) HTN (hypertension) (Chronic) Tobacco use disorder (Chronic) Opiate dependence (Chronic) Pericardial effusion (Chronic) HLD (hyperlipidemia) (Chronic) Allergies No Known Allergies Allergy (Verified 07/10/18 15:09) Home Medications: Ambulatory Orders Medication Instructions Recorded Methadone HCl 10 mg PO 4X/DAY PRN 04/23/16 Nitroglycerin [Nitrostat] 0.4 mg SL PRN PRN 04/23/16 cycloBENZAPRine HCl [Flexeril] 10 mg PO TID PRN #20 tab 03/02/17 Acetaminophen [Tylenol Tablet] 500 mg PO Q4H PRN PRN tablet 03/08/17 Gabapentin [Neurontin] 600 mg PO TID PRN 07/10/18 Insulin NPH Human [Humulin N Pen] 35 units SC DAILY 07/10/18 Insulin Regular, Human [Novolin R] 2 - 10 unit SC TIDCM 07/10/18 Metoprolol Tartrate [Lopressor 50 mg PO BID 07/10/18 (beta sharon)] Sertraline HCl 150 mg PO DAILY 07/10/18 Surgical History: appendectomy, cholecystectomy, - - Back surgery, cholecystectomy, appendectomy. Psychiatric History: Anxiety Lives: Spouse/ Significant Other Smoking Status: Current every day smoker Tobacco Use: Cigarettes Alcohol: None Drugs: Marijuana - *Family History Maternal History Items: Diabetes, Hypertension Paternal History Items: Diabetes, Hypertension Review of Systems Constitutional: Reports: Fatigue. Denies: Chills, Fever Eyes: Denies: Blurred vision, Double vision HEENT: Denies: Head Aches, Sinus Congestion, Sinus Drainage Cardiovascular: Reports: Edema. Denies: Chest Pain, Palpitations Respiratory: Reports: Cough - Chronic, productive, Shortness of Breath, Sputum production, Wheezing Gastrointestinal: Denies: Abdominal Pain, Nausea, Vomiting Genitourinary: Denies: Dysuria Musculoskeletal: Reports: Back Pain Skin: Denies: Rash, Wounds Neurological: Denies: Numbness, Tingling, Focal weakness Psychiatric: Reports: Depression Hematologic/ Lymphatic: Denies: Easy Bruising, Easy Bleeding Objective: The patient's most recent lab work, culture data and imaging studies have all been personally reviewed. Surface echocardiogram from February 2017 revealed evidence of stage I diastolic dysfunction. - Physical Exam General: Alert, Cooperative, No apparent distress HEENT: Atraumatic, PERRLA, Normocephalic Oral: No Gingival or Mucosal Lesions/ Ulcerations Neck: Supple, No Nodes, Trachea Midline Lungs: Diminished, - - Wheezes noted throughout left hemithorax with mild right basilar rales. Somewhat prolonged expiratory phase. Cardiovascular: Regular rate, Regular Rhythm, Normal S1, Normal S2, No murmurs Abdomen: Bowel Sounds Present, Soft, Non Tender, Obese Extremities: No clubbing, No cyanosis, Edema Skin: No breakdown Musculoskeletal: No Tenderness to Palpation of Joints or Extremities, No Muscle Wasting Lymphatic: No Cervical, Supraclavicular, or Inguinal Adenopathy Neurological: Cranial nerves II-XII grossly intact, Neuro grossly intact Psych/Mental Status: Normal Affect, Appropriate Vital Signs Temp Pulse Resp BP Pulse Ox 97.4 F L 68 18 105/61 95 07/11/18 03:00 07/11/18 05:00 07/11/18 05:00 07/11/18 05:00 07/11/18 05:00 Oxygen Flow Rate (L/min) 45 Oxygen Delivery Method Room Air Weight: 245 lb 13.047 oz Body Mass Index (BMI) 35.2 Finger Stick Blood Glucose 164 Intake and Output for Last 24 Hours 07/09/18 07/10/18 07/11/18 23:59 23:59 23:59 Intake Total 331 / 331 1483 / 1483 Balance 331 / 331 1483 / 1483 Laboratory Tests Past 24 Hrs 07/10/18 07/10/18 07/10/18 15:15 15:15 15:15 WBC 8.7 RBC 4.46 L Hgb 14.9 Hct 43.4 MCV 97.3 H MCH 33.4 H MCHC 34.3 RDW 13.0 RDW Differential 46.1 H Plt Count 200 MPV 11.2 Immature Gran % (Auto) 0.200 Neut % (Auto) 52.4 Lymph % (Auto) 31.2 Iron % (Auto) 11.9 H Eos % (Auto) 3.6 Baso % (Auto) 0.7 Absolute Neuts (auto) 4.6 Absolute Lymphs (auto) 2.71 Total Counted Not Reportable Specimen Type Sample Site pH Bicarbonate Actual POC Total CO2 Base Excess O2 Saturation O2 % ABG pCO2 ABG pO2 Bradley Test Respiration Rate O2 Delivery Device Liter Flow EPAP IPAP Blood Gas Notified Whom Blood Gas Notified Time Sodium 136 Potassium 4.0 Chloride 102 Carbon Dioxide 30.0 Anion Gap 4 L BUN 32 H Creatinine 1.59 H Estim Creat Clear Calc 35.76 Est GFR (MDRD) Af Amer 57 L Est GFR (MDRD) Non-Af 47 L BUN/Creatinine Ratio 20.1 H Glucose 110 H Lactic Acid 1.6 Calcium 8.3 L Total Bilirubin AST ALT Alkaline Phosphatase Troponin I < 0.015 B-Natriuretic Peptide Total Protein Albumin Globulin Albumin/Globulin Ratio 07/10/18 07/10/18 07/10/18 15:15 15:39 16:39 WBC RBC Hgb Hct MCV MCH MCHC RDW RDW Differential Plt Count MPV Immature Gran % (Auto) Neut % (Auto) Lymph % (Auto) Iron % (Auto) Eos % (Auto) Baso % (Auto) Absolute Neuts (auto) Absolute Lymphs (auto) Total Counted Specimen Type ART ART Sample Site R Radial L Radial pH 7.18 L* 7.27 L Bicarbonate Actual 25.1 25.9 POC Total CO2 27 28 Base Excess -3 L -1 O2 Saturation 91 L 95 O2 % 40 ABG pCO2 68.0 H* 56.7 H ABG pO2 77 87 Bradley Test POS NA Respiration Rate 12 O2 Delivery Device Nasal Can Bi / C PAP Liter Flow 2.0 EPAP 6 IPAP 16 Blood Gas Notified Whom ED MD ED MD Blood Gas Notified Time 1530 1632 Sodium Potassium Chloride Carbon Dioxide Anion Gap BUN Creatinine Estim Creat Clear Calc Est GFR (MDRD) Af Amer Est GFR (MDRD) Non-Af BUN/Creatinine Ratio Glucose Lactic Acid Calcium Total Bilirubin AST ALT Alkaline Phosphatase Troponin I B-Natriuretic Peptide 44.0 Total Protein Albumin Globulin Albumin/Globulin Ratio 07/10/18 07/10/18 07/10/18 18:49 19:30 20:09 WBC RBC Hgb Hct MCV MCH MCHC RDW RDW Differential Plt Count MPV Immature Gran % (Auto) Neut % (Auto) Lymph % (Auto) Iron % (Auto) Eos % (Auto) Baso % (Auto) Absolute Neuts (auto) Absolute Lymphs (auto) Total Counted Specimen Type ART ART Sample Site R Radial R Radial pH 7.22 L 7.28 L Bicarbonate Actual 25.6 25.8 POC Total CO2 27 27 Base Excess -2 -1 O2 Saturation 93 L 91 L O2 % 30 30 ABG pCO2 62.3 H 54.6 H ABG pO2 80 71 L Bradley Test POS POS Respiration Rate 12 16 O2 Delivery Device Bi / C PAP Bi / C PAP Liter Flow EPAP 8 8 IPAP 20 20 Blood Gas Notified Whom HOSP MD HOSP MD Blood Gas Notified Time 1844 2004 Sodium Potassium Chloride Carbon Dioxide Anion Gap BUN Creatinine Estim Creat Clear Calc Est GFR (MDRD) Af Amer Est GFR (MDRD) Non-Af BUN/Creatinine Ratio Glucose Lactic Acid Calcium Total Bilirubin AST ALT Alkaline Phosphatase Troponin I < 0.015 B-Natriuretic Peptide Total Protein Albumin Globulin Albumin/Globulin Ratio 07/10/18 07/11/18 07/11/18 22:30 01:30 04:35 WBC 8.9 RBC 4.51 L Hgb 14.6 Hct 42.9 MCV 95.1 H MCH 32.4 H MCHC 34.0 RDW 12.4 RDW Differential 42.3 Plt Count 180 MPV 11.7 Immature Gran % (Auto) 0.200 Neut % (Auto) 90.3 H Lymph % (Auto) 8.2 L Iron % (Auto) 1.1 Eos % (Auto) 0.1 Baso % (Auto) 0.1 Absolute Neuts (auto) 8.0 H Absolute Lymphs (auto) 0.73 L Total Counted Not Reportable Specimen Type Sample Site pH Bicarbonate Actual POC Total CO2 Base Excess O2 Saturation O2 % ABG pCO2 ABG pO2 Bradley Test Respiration Rate O2 Delivery Device Liter Flow EPAP IPAP Blood Gas Notified Whom Blood Gas Notified Time Sodium Potassium Chloride Carbon Dioxide Anion Gap BUN Creatinine Estim Creat Clear Calc Est GFR (MDRD) Af Amer Est GFR (MDRD) Non-Af BUN/Creatinine Ratio Glucose Lactic Acid Calcium Total Bilirubin AST ALT Alkaline Phosphatase Troponin I < 0.015 < 0.015 B-Natriuretic Peptide Total Protein Albumin Globulin Albumin/Globulin Ratio 07/11/18 04:35 WBC RBC Hgb Hct MCV MCH MCHC RDW RDW Differential Plt Count MPV Immature Gran % (Auto) Neut % (Auto) Lymph % (Auto) Iron % (Auto) Eos % (Auto) Baso % (Auto) Absolute Neuts (auto) Absolute Lymphs (auto) Total Counted Specimen Type Sample Site pH Bicarbonate Actual POC Total CO2 Base Excess O2 Saturation O2 % ABG pCO2 ABG pO2 Bradley Test Respiration Rate O2 Delivery Device Liter Flow EPAP IPAP Blood Gas Notified Whom Blood Gas Notified Time Sodium 133 L Potassium 5.0 Chloride 98 Carbon Dioxide 25.0 Anion Gap 10 BUN 38 H Creatinine 1.75 H Estim Creat Clear Calc 44.61 Est GFR (MDRD) Af Amer 51 L Est GFR (MDRD) Non-Af 42 L BUN/Creatinine Ratio 21.7 H Glucose 347 H Lactic Acid Calcium 8.0 L Total Bilirubin 0.40 AST 43 H ALT 51 Alkaline Phosphatase 101 Troponin I B-Natriuretic Peptide Total Protein 6.9 Albumin 3.1 L Globulin 3.8 Albumin/Globulin Ratio 0.8 L POC Glucose 07/10/18 07/10/18 21:29 17:16 POC Glucose 434 H 173 H Clinical Impression(s) from Imaging Studies Chest X-Ray 07/10/18 15:14 IMPRESSION: Cardiomegaly with low volume inspiration and bibasilar atelectasis. No acute finding. Electronically Signed: Jonnie Dia MD at 15:50 EDT , Service support , Assessment/Plan RECOMMENDATIONS: 1. Stop continuous supplemental IV fluids. 2. Stop IV steroids and transition to prednisone 40 mg daily by mouth. 3. Start bronchodilators. 4. Obtain repeat echocardiogram. 5. Encourage incentive spirometer use and mobilize patient as tolerated. 6. Recommend empiric utilization of BiPAP with naps and nightly. 7. Smoking cessation is advisable. 8. Outpatient pulmonary follow-up within 2 weeks of discharge so that baseline PFTs and diagnostic polysomnogram can be obtained. IMPRESSIONS: 1. Acute hypoxemic and hypercarbic respiratory failure Likely secondary to presumptive COPD with exacerbation in the setting of community-acquired pneumonia and polypharmacy leading to impaired respiratory mechanics. The patient has improved clinically with the use of noninvasive positive pressure ventilatory support. He is currently maintaining appropriate oxygen saturations on room air. Agree with continuing empiric antibiotics, bronchodilators and steroids for now. Recommend checking a sputum culture. In addition, given the patient's complaints of worsening lower extremity edema, will obtain repeat echocardiogram. The patient undoubtedly needs to follow-up in the pulmonary medicine clinic so that pulmonary function studies can be obtained and baseline inhaler regimen optimized. I would also strongly recommend dose de-escalation of the patient's home sedating medication regimen. 2. Acute kidney injury Unclear etiology. Recommend checking renal ultrasound. Consider nephrology consultation if no improvement over the next 24 hours. No current indication for renal replacement therapy. 3. Encephalopathy Likely due to hypercarbia secondary to polypharmacy, coupled with presumptive underlying sleep disordered breathing. The patient did respond favorably to the use of noninvasive positive pressure ventilatory support. Recommend avoiding sedating medications for now. 4. Continuous tobacco dependency The patient was counseled regarding the importance of achieving a smoke-free lifestyle. Continue nicotine replacement therapy while admitted to the hospital. 5. Heart failure with preserved ejection fraction Prior echocardiogram did reveal evidence of diastolic dysfunction. Given the patient's complaints of worsening lower extremity edema, we will plan to obtain a repeat echocardiogram to evaluate for any changes or the development of pulmonary hypertension. 6. Concern for underlying obstructive sleep apnea The patient endorses symptoms concerning for underlying sleep disordered breathing. Would strongly recommend outpatient diagnostic polysomnogram. In the interim, recommend continuing BiPAP therapy with naps and nightly. 7. Obesity/chronic pain syndrome/hypertension/diabetes mellitus Complicates care, management, recovery and prognosis. Continue Accu-Cheks and sliding scale insulin coverage. This note was generated with Keyade dictation software. It may contain incorrect words, spelling, and punctuation that were not noted in checking the note before signing. Code Visit Inpatient E&M: 41097 Init Hosp L3
[2018-07-11] MEDS: Insulin Lispro 100 UNIT/ML INSULN.PEN SQ (06:59)
[2018-07-11] MEDS: Heparin Injection (Vial) 5,000 UNIT/ML VIAL 5000 UNIT SC (06:59)
[2018-07-11 07:10] LABS: Bedside Glucose 347 mg/dL (70-110)
--- NOTE | 2018-07-11 08:39 | PCM.PN.HOSP ---
Patient Problems: Active and Suspected Problems Acute respiratory failure with hypoxia and hypercapnia (Acute) Subjective: Feels well. Denies any current complaints. States that he has not been improperly taking his medications. Denies any use of benzodiazepines. States that he is not smoking marijuana but was recently in a car with his grandson and friend who were smoking marijuana. Vitals/I&O's: Vital Signs Temp Pulse Resp BP Pulse Ox 36.6 C 70 13 140/72 H 94 07/11/18 08:00 07/11/18 08:00 07/11/18 08:00 07/11/18 08:00 07/11/18 08:00 Oxygen Flow Rate (L/min) 45 Oxygen Delivery Method Room Air Weight: 114.6 kg Body Mass Index (BMI) 35.2 Finger Stick Blood Glucose 164 Intake and Output for Last 24 Hours 07/09/18 07/10/18 07/11/18 23:59 23:59 23:59 Intake Total 331 / 331 2496 / 2496 Output Total 725 / 725 Balance 331 / 331 1771 / 1771 General: Alert, No apparent distress HEENT: Atraumatic, Normocephalic Oral: Moist Mucosa, No Gingival or Mucosal Lesions/ Ulcerations Neck: No Nodes, Thyroid Normal Size and Texture Lungs: Diminished, - - Upper respiratory wheeze Cardiovascular: Regular rate, Regular Rhythm, Normal S1, Normal S2 Abdomen: Bowel Sounds Present, Soft, Non Tender, Non-Distended Extremities: Edema Skin: No rashes, No breakdown Musculoskeletal: No Muscle Wasting Neurological: Muscle tone normal, Coordination normal Psych/Mental Status: Normal Affect, Appropriate Laboratory Results 07/10/18 15:15: WBC 8.7, RBC 4.46 L, Hgb 14.9, Hct 43.4, MCV 97.3 H, MCH 33.4 H, MCHC 34.3, RDW 13.0, RDW Differential 46.1 H, Plt Count 200, MPV 11.2, Immature Gran % (Auto) 0.200, Neut % (Auto) 52.4, Lymph % (Auto) 31.2, Jones % (Auto) 11.9 H, Eos % (Auto) 3.6, Baso % (Auto) 0.7, Absolute Neuts (auto) 4.6, Absolute Lymphs (auto) 2.71, Total Counted Not Reportable 07/10/18 15:15: Sodium 136, Potassium 4.0, Chloride 102, Carbon Dioxide 30.0, Anion Gap 4 L, BUN 32 H, Creatinine 1.59 H, Estim Creat Clear Calc 35.76, Est GFR (MDRD) Af Amer 57 L, Est GFR (MDRD) Non-Af 47 L, BUN/Creatinine Ratio 20.1 H, Glucose 110 H, Calcium 8.3 L, Troponin I < 0.015 07/10/18 15:15: Lactic Acid 1.6 07/10/18 15:15: B-Natriuretic Peptide 44.0 07/10/18 15:39: Specimen Type ART, Sample Site R Radial, pH 7.18 L*, Bicarbonate Actual 25.1, POC Total CO2 27, Base Excess -3 L, O2 Saturation 91 L, ABG pCO2 68.0 H*, ABG pO2 77, Bradley Test POS, O2 Delivery Device Nasal Can, Liter Flow 2.0, Blood Gas Notified Whom ED , Blood Gas Notified Time 1530 07/10/18 16:39: Specimen Type ART, Sample Site L Radial, pH 7.27 L, Bicarbonate Actual 25.9, POC Total CO2 28, Base Excess -1, O2 Saturation 95, O2 % 40, ABG pCO2 56.7 H, ABG pO2 87, Bradley Test NA, Respiration Rate 12, O2 Delivery Device Bi / C PAP, EPAP 6, IPAP 16, Blood Gas Notified Whom ED , Blood Gas Notified Time 1632 07/10/18 17:16: POC Glucose 173 H 07/10/18 18:49: Specimen Type ART, Sample Site R Radial, pH 7.22 L, Bicarbonate Actual 25.6, POC Total CO2 27, Base Excess -2, O2 Saturation 93 L, O2 % 30, ABG pCO2 62.3 H, ABG pO2 80, Bradley Test POS, Respiration Rate 12, O2 Delivery Device Bi / C PAP, EPAP 8, IPAP 20, Blood Gas Notified Whom HOSP , Blood Gas Notified Time 18407/10/18 19:30: Troponin I < 0.015 07/10/18 20:09: Specimen Type ART, Sample Site R Radial, pH 7.28 L, Bicarbonate Actual 25.8, POC Total CO2 27, Base Excess -1, O2 Saturation 91 L, O2 % 30, ABG pCO2 54.6 H, ABG pO2 71 L, Bradley Test POS, Respiration Rate 16, O2 Delivery Device Bi / C PAP, EPAP 8, IPAP 20, Blood Gas Notified Whom YAMIL MARTI, Blood Gas Notified Time 200407/10/18 21:29: POC Glucose 434 H 07/10/18 22:30: Troponin I < 0.015 07/11/18 01:30: Troponin I < 0.015 07/11/18 04:35: WBC 8.9, RBC 4.51 L, Hgb 14.6, Hct 42.9, MCV 95.1 H, MCH 32.4 H, MCHC 34.0, RDW 12.4, RDW Differential 42.3, Plt Count 180, MPV 11.7, Immature Gran % (Auto) 0.200, Neut % (Auto) 90.3 H, Lymph % (Auto) 8.2 L, Jones % (Auto) 1.1, Eos % (Auto) 0.1, Baso % (Auto) 0.1, Absolute Neuts (auto) 8.0 H, Absolute Lymphs (auto) 0.73 L, Total Counted Not Reportable 07/11/18 04:35: Sodium 133 L, Potassium 5.0, Chloride 98, Carbon Dioxide 25.0, Anion Gap 10, BUN 38 H, Creatinine 1.75 H, Estim Creat Clear Calc 44.61, Est GFR (MDRD) Af Amer 51 L, Est GFR (MDRD) Non-Af 42 L, BUN/Creatinine Ratio 21.7 H, Glucose 347 H, Calcium 8.0 L, Total Bilirubin 0.40, AST 43 H, ALT 51, Alkaline Phosphatase 101, Total Protein 6.9, Albumin 3.1 L, Globulin 3.8, Albumin/Globulin Ratio 0.8 L 07/11/18 06:56: POC Glucose 347 H Current Medications Acetaminophen (Tylenol) 650 mg PO Q6H PRN PRN PRN Reason: Mild Pain (1-3)/Temp > 100.7 F Albuterol Sulfate (Ventolin Aerosols) 2.5 mg INHALATION Q2H PRN PRN PRN Reason: SOB/Wheezing Albuterol/Ipratropium (Duoneb) 3 ml INHALATION Q4HWA.RT JORGE Dextrose (D50w Syringe) 0 gm IV X1 PRN; Protocol PRN Reason: Hypoglycemia Glucagon () 1 mg IM .X1 PRN PRN Reason: Hypoglycemia Heparin Sodium (Porcine) (Heparin Na) 5,000 unit SC Q8 [facility] Last Admin: 07/11/18 06:59 Dose: 5,000 unit Azithromycin 500 mg/ Dextrose 255 mls @ 250 mls/hr IV Q24 [facility] Last Admin: 07/10/18 18:27 Dose: 250 mls/hr Insulin Human Lispro (Humalog Kwikpen (Bkc)) 0 unit SQ ACHS [facility]; Protocol Last Admin: 07/11/18 06:59 Dose: 3 units Insulin Human NPH (Humulin N (Bkc)) 30 units SC BID [facility] Methadone HCl () 5 mg PO 4X/DAY PRN PRN PRN Reason: PAIN Metoprolol Tartrate (Lopressor (Beta Laura)) 25 mg PO BID [facility] Last Admin: 07/10/18 22:05 Dose: Not Given Nicotine (Nicoderm Cq (Pbkc)) 21 mg TRANSDERM. DAILY [facility] Nitroglycerin (Nitrostat) 0.4 mg SUBLINGUAL Q5M PRN PRN Reason: pain Nutritional Formula (Lactose Free) (Glucerna Shake) 120 ml PO 4X/DAY [facility] Last Admin: 07/10/18 21:05 Dose: Not Given Ondansetron HCl (Zofran) 4 mg IV Q8H PRN PRN PRN Reason: NAUSEA/VOMITING Prednisone () 40 mg PO X1 ONE Stop: 07/11/18 08:36 Prednisone () 40 mg PO DAILY@0800 [facility] Sertraline HCl (Zoloft) 150 mg PO DAILY [facility] Sodium Chloride () 5 - 15 ml IV UD PRN PRN Reason: SALINE FLUSH Last Admin: 07/10/18 19:32 Dose: 10 ml Medical Necessity - Tobacco Use Smoking Status: Current every day smoker Tobacco Use: Cigarettes Assessment/Plan All Active Problems Acute respiratory failure with hypoxia and hypercapnia (Acute) Right flank pain (Acute) DKA (diabetic ketoacidoses) (Acute) Acute exacerbation of chronic low back pain (Acute) Bacteremia (Acute) Pneumonia (Acute) Ileus (Acute) Dehydration (Acute) Acute chest pain (Acute) D-dimer, elevated (Acute) Intractable nausea and vomiting (Acute) DKA (diabetic ketoacidoses) (Resolved) CHARLIE (acute kidney injury) (Acute) Chest pain (Acute) 1. Acute hypoxic and hypercapnic respiratory failure Improved likely multifactorial Due to the patient's COPD, untreated sleep apnea and polypharmacy. I did review his OARRS, and shows that he has been receiving methadone as well as gabapentin through Dr. Juan Daniel Gillespie. He has not received any benzodiazepine prescriptions since December 2016. Patient states that he is not taking any benzodiazepines though from documentation, the patient's states that he has been. Complicating the polypharmacy has cyclobenzaprine as well as gabapentin. Both of which have been held. Patient states that he is not smoking marijuana but was recently in a car with his grandson to smoke marijuana. I told the patient that I am not disputing that but I did tell him from the documentation that the said that he had been smoking marijuana recently. He did not dispute that. I advised patient to stop smoking marijuana if he is indeed because if he is then his pain management doctor would likely fire him from his practice. Echocardiogram has been ordered to evaluate for any kind of worsening heart failure as patient is having increased lower extremity edema. Chest x-ray was of poor quality due to poor respiratory effort even the repeat was of poor quality. May be some right lower lobe atelectasis, however. Patient continue with empiric azithromycin for now. Steroids changed over from Solu-Medrol over to prednisone. Would plan for total 5 days of 40 mg of prednisone burst. Will need to have a follow-up outpatient polysomnogram for evaluation for sleep apnea. Follow-up with pulmonology as outpatient. 2. Encephalopathy Favoring toxic but could be a combination of toxic and metabolic Resolved at this time 3. Possible acute kidney injury Creatinine is 1.75, back in March 2017, it was 0.56. Unclear if this is acute or just progression of chronic kidney disease. Avoid nephrotoxic agents right now Follow-up lab work in the morning. 4. Diabetes mellitus type 2 Uncontrolled. Certainly due to steroids but patient is also only on NPH 35 units daily. Patient was discharged back and March 2017 and it was 30 units twice daily at that time We will resume the 30 units twice daily for now plus sliding scale and monitor Check an A1c 5. Chronic pain Patient sees Dr. Juan Daniel Gillespie and receives gabapentin as well as methadone through him. Methadone has been continued Continue to hold the gabapentin and cyclobenzaprine 6. Possible acute exacerbation of COPD Patient still continues to smoke. Did advise cessation. Continue with bronchodilators as well as prednisone 7. VTE prophylaxis with subcu heparin 8. Disposition: Given the acute events from yesterday and the ongoing issues, particular with the kidney failure. Patient be monitored another night to determine that he is remaining stable prior to discharge. We will de-escalate patient's care to MedSurg status with telemetry. I will continue with telemetry for now just to make sure there was not any arrhythmia that led to his acute confusion. Code Visit Inpatient E&M: 92068 Subs Hosp L3
[2018-07-11] MEDS: Ipratropium/Albuterol Sulfate 3 ML AMPUL.NEB INHALATION (08:47)
--- NOTE | 2018-07-11 08:50 | PN_ITS ---
Patient Problems: Active and Suspected Problems Acute respiratory failure with hypoxia and hypercapnia (Acute) Subjective: Feels well. Denies any current complaints. States that he has not been improperly taking his medications. Denies any use of benzodiazepines. States that he is not smoking marijuana but was recently in a car with his grandson and friend who were smoking marijuana. Vitals/I&O's: Vital Signs Temp Pulse Resp BP Pulse Ox 36.6 C 70 13 140/72 H 94 07/11/18 08:00 07/11/18 08:00 07/11/18 08:00 07/11/18 08:00 07/11/18 08:00 Oxygen Flow Rate (L/min) 45 Oxygen Delivery Method Room Air Weight: 114.6 kg Body Mass Index (BMI) 35.2 Finger Stick Blood Glucose 164 Intake and Output for Last 24 Hours 07/09/18 07/10/18 07/11/18 23:59 23:59 23:59 Intake Total 331 / 331 2496 / 2496 Output Total 725 / 725 Balance 331 / 331 1771 / 1771 General: Alert, No apparent distress HEENT: Atraumatic, Normocephalic Oral: Moist Mucosa, No Gingival or Mucosal Lesions/ Ulcerations Neck: No Nodes, Thyroid Normal Size and Texture Lungs: Diminished, - - Upper respiratory wheeze Cardiovascular: Regular rate, Regular Rhythm, Normal S1, Normal S2 Abdomen: Bowel Sounds Present, Soft, Non Tender, Non-Distended Extremities: Edema Skin: No rashes, No breakdown Musculoskeletal: No Muscle Wasting Neurological: Muscle tone normal, Coordination normal Psych/Mental Status: Normal Affect, Appropriate Laboratory Results 07/10/18 15:15: WBC 8.7, RBC 4.46 L, Hgb 14.9, Hct 43.4, MCV 97.3 H, MCH 33.4 H, MCHC 34.3, RDW 13.0, RDW Differential 46.1 H, Plt Count 200, MPV 11.2, Immature Gran % (Auto) 0.200, Neut % (Auto) 52.4, Lymph % (Auto) 31.2, [place] % (Auto) 11.9 H, Eos % (Auto) 3.6, Baso % (Auto) 0.7, Absolute Neuts (auto) 4.6, Absolute Lymphs (auto) 2.71, Total Counted Not Reportable 07/10/18 15:15: Sodium 136, Potassium 4.0, Chloride 102, Carbon Dioxide 30.0, Anion Gap 4 L, BUN 32 H, Creatinine 1.59 H, Estim Creat Clear Calc 35.76, Est GFR (MDRD) Af Amer 57 L, Est GFR (MDRD) Non-Af 47 L, BUN/Creatinine Ratio 20.1 H , Glucose 110 H, Calcium 8.3 L, Troponin I < 0.015 07/10/18 15:15: Lactic Acid 1.6 07/10/18 15:15: B-Natriuretic Peptide 44.0 07/10/18 15:39: Specimen Type ART, Sample Site R Radial, pH 7.18 L*, Bicarbonate Actual 25.1, POC Total CO2 27, Base Excess -3 L, O2 Saturation 91 L, ABG pCO2 68.0 H*, ABG pO2 77, Bradley Test POS, O2 Delivery Device Nasal Can, Liter Flow 2.0, Blood Gas Notified Whom ED , Blood Gas Notified Time 1530 07/10/18 16:39: Specimen Type ART, Sample Site L Radial, pH 7.27 L, Bicarbonate Actual 25.9, POC Total CO2 28, Base Excess -1, O2 Saturation 95, O2 % 40, ABG pCO2 56.7 H, ABG pO2 87, Bradley Test NA, Respiration Rate 12, O2 Delivery Device Bi / C PAP, EPAP 6, IPAP 16, Blood Gas Notified Whom ED , Blood Gas Notified Time 1632 07/10/18 17:16: POC Glucose 173 H 07/10/18 18:49: Specimen Type ART, Sample Site R Radial, pH 7.22 L, Bicarbonate Actual 25.6, POC Total CO2 27, Base Excess -2, O2 Saturation 93 L, O2 % 30, ABG pCO2 62.3 H, ABG pO2 80, Bradley Test POS, Respiration Rate 12, O2 Delivery Device Bi / C PAP, EPAP 8, IPAP 20, Blood Gas Notified Whom HOSP , Blood Gas Notified Time 18407/10/18 19:30: Troponin I < 0.015 07/10/18 20:09: Specimen Type ART, Sample Site R Radial, pH 7.28 L, Bicarbonate Actual 25.8, POC Total CO2 27, Base Excess -1, O2 Saturation 91 L, O2 % 30, ABG pCO2 54.6 H, ABG pO2 71 L, Bradley Test POS, Respiration Rate 16, O2 Delivery Device Bi / C PAP, EPAP 8, IPAP 20, Blood Gas Notified Whom YAMIL MARTI, Blood Gas Notified Time 200407/10/18 21:29: POC Glucose 434 H 07/10/18 22:30: Troponin I < 0.015 07/11/18 01:30: Troponin I < 0.015 07/11/18 04:35: WBC 8.9, RBC 4.51 L, Hgb 14.6, Hct 42.9, MCV 95.1 H, MCH 32.4 H, MCHC 34.0, RDW 12.4, RDW Differential 42.3, Plt Count 180, MPV 11.7, Immature Gran % (Auto) 0.200, Neut % (Auto) 90.3 H, Lymph % (Auto) 8.2 L, [place] % (Auto) 1.1, Eos % (Auto) 0.1, Baso % (Auto) 0.1, Absolute Neuts (auto) 8.0 H, Absolute Lymphs (auto) 0.73 L, Total Counted Not Reportable 07/11/18 04:35: Sodium 133 L, Potassium 5.0, Chloride 98, Carbon Dioxide 25.0, Anion Gap 10, BUN 38 H, Creatinine 1.75 H, Estim Creat Clear Calc 44.61, Est GFR (MDRD) Af Amer 51 L, Est GFR (MDRD) Non-Af 42 L, BUN/Creatinine Ratio 21.7 H, Glucose 347 H, Calcium 8.0 L, Total Bilirubin 0.40, AST 43 H, ALT 51, Alkaline Phosphatase 101, Total Protein 6.9, Albumin 3.1 L, Globulin 3.8, Albumin/Globulin Ratio 0.8 L 07/11/18 06:56: POC Glucose 347 H Current Medications Acetaminophen (Tylenol) 650 mg PO Q6H PRN PRN PRN Reason: Mild Pain (1-3)/Temp > 100.7 F Albuterol Sulfate (Ventolin Aerosols) 2.5 mg INHALATION Q2H PRN PRN PRN Reason: SOB/Wheezing Albuterol/Ipratropium (Duoneb) 3 ml INHALATION Q4HWA.RT JORGE Dextrose (D50w Syringe) 0 gm IV X1 PRN; Protocol PRN Reason: Hypoglycemia Glucagon () 1 mg IM .X1 PRN PRN Reason: Hypoglycemia Heparin Sodium (Porcine) (Heparin Na) 5,000 unit SC Q8 [facility] Last Admin: 07/11/18 06:59 Dose: 5,000 unit Azithromycin 500 mg/ Dextrose 255 mls @ 250 mls/hr IV Q24 [facility] Last Admin: 07/10/18 18:27 Dose: 250 mls/hr Insulin Human Lispro (Humalog Kwikpen (Bkc)) 0 unit SQ ACHS [facility]; Protocol Last Admin: 07/11/18 06:59 Dose: 3 units Insulin Human NPH (Humulin N (Bkc)) 30 units SC BID [facility] Methadone HCl () 5 mg PO 4X/DAY PRN PRN PRN Reason: PAIN Metoprolol Tartrate (Lopressor (Beta Laura)) 25 mg PO BID [facility] Last Admin: 07/10/18 22:05 Dose: Not Given Nicotine (Nicoderm Cq (Pbkc)) 21 mg TRANSDERM. DAILY [facility] Nitroglycerin (Nitrostat) 0.4 mg SUBLINGUAL Q5M PRN PRN Reason: pain Nutritional Formula (Lactose Free) (Glucerna Shake) 120 ml PO 4X/DAY [facility] Last Admin: 07/10/18 21:05 Dose: Not Given Ondansetron HCl (Zofran) 4 mg IV Q8H PRN PRN PRN Reason: NAUSEA/VOMITING Prednisone () 40 mg PO X1 ONE Stop: 07/11/18 08:36 Prednisone () 40 mg PO DAILY@0800 [facility] Sertraline HCl (Zoloft) 150 mg PO DAILY [facility] Sodium Chloride () 5 - 15 ml IV UD PRN PRN Reason: SALINE FLUSH Last Admin: 07/10/18 19:32 Dose: 10 ml Medical Necessity - Tobacco Use Smoking Status: Current every day smoker Tobacco Use: Cigarettes Assessment/Plan All Active Problems Acute respiratory failure with hypoxia and hypercapnia (Acute) Right flank pain (Acute) DKA (diabetic ketoacidoses) (Acute) Acute exacerbation of chronic low back pain (Acute) Bacteremia (Acute) Pneumonia (Acute) Ileus (Acute) Dehydration (Acute) Acute chest pain (Acute) D-dimer, elevated (Acute) Intractable nausea and vomiting (Acute) DKA (diabetic ketoacidoses) (Resolved) CHARLIE (acute kidney injury) (Acute) Chest pain (Acute) 1. Acute hypoxic and hypercapnic respiratory failure * Improved * likely multifactorial * Due to the patient's COPD, untreated sleep apnea and polypharmacy. * I did review his [place]AR[place], and shows that he has been receiving methadone as well as gabapentin through Dr. Juan Daniel Gillespie. He has not received any benzodiazepine prescriptions since December 2016. Patient states that he is not taking any benzodiazepines though from documentation, the patient's states that he has been. Complicating the polypharmacy has cyclobenzaprine as well as gabapentin. Both of which have been held. Patient states that he is not smoking marijuana but was recently in a car with his grandson to smoke marijuana. I told the patient that I am not disputing that but I did tell him from the documentation that the said that he had been smoking marijuana recently. He did not dispute that. I advised patient to stop smoking marijuana if he is indeed because if he is then his pain management doctor would likely fire him from his practice. * Echocardiogram has been ordered to evaluate for any kind of worsening heart failure as patient is having increased lower extremity edema. * Chest x-ray was of poor quality due to poor respiratory effort even the repeat was of poor quality. May be some right lower lobe atelectasis, however. * Patient continue with empiric azithromycin for now. * Steroids changed over from Solu-Medrol over to prednisone. Would plan for total 5 days of 40 mg of prednisone burst. * Will need to have a follow-up outpatient polysomnogram for evaluation for sleep apnea. * Follow-up with pulmonology as outpatient. 2. Encephalopathy * Favoring toxic but could be a combination of toxic and metabolic * Resolved at this time 3. Possible acute kidney injury * Creatinine is 1.75, back in March 2017, it was 0.56. * Unclear if this is acute or just progression of chronic kidney disease. * Avoid nephrotoxic agents right now * Follow-up lab work in the morning. 4. Diabetes mellitus type 2 * Uncontrolled. * Certainly due to steroids but patient is also only on NPH 35 units daily. Patient was discharged back and March 2017 and it was 30 units twice daily at that time * We will resume the 30 units twice daily for now plus sliding scale and monitor * Check an A1c 5. Chronic pain Patient sees Dr. Juan Daniel Gillespie and receives gabapentin as well as methadone through him. Methadone has been continued Continue to hold the gabapentin and cyclobenzaprine 6. Possible acute exacerbation of COPD * Patient still continues to smoke. Did advise cessation. * Continue with bronchodilators as well as prednisone 7. VTE prophylaxis with subcu heparin 8. Disposition: Given the acute events from yesterday and the ongoing issues, particular with the kidney failure. Patient be monitored another night to determine that he is remaining stable prior to discharge. We will de-escalate patient's care to MedSur status with telemetry. I will continue with telemetry for now just to make sure there was not any arrhythmia that led to his acute confusion. Code Visit Inpatient E&M: 11689 Subs Hosp L3
[2018-07-11] MEDS: Sertraline 50 MG Tablet 150 MG PO (09:13)
[2018-07-11] MEDS: Metoprolol Tartrate 25 MG Tablet PO (09:13)
[2018-07-11] MEDS: predniSONE 20 MG Tablet 40 MG PO (09:13)
[2018-07-11] MEDS: Glucerna Shake 120 ML LIQUID PO (09:15)
--- NOTE | 2018-07-11 09:21 | NURSING ---
pt expressed to Dr. Weber, he would like to leave AMA. This RN sat down with pt and discussed risks with leaving AMA and it is advised he stay for further treatment. Dr. Blanco aware and will come talk with patient.
--- NOTE | 2018-07-11 10:13 | CM.UR ---
Attempted to meet with patient at this time for Case mgmt assessment however he was already in discussion with SANDY Velazquez regarding leaving AMA. She was explaining that his physician did not want him leaving as he needed further work up. Instructed on the risk of him being readmitted without proper work up and treatment. I reinforced what she was explaining to him. He still said he wanted to leave AMA and instructed SANDY Velazquez to get the paperwork ready and he continued to get dressed. I explained the risk of his insurance not paying, if he left AMA. Explained it is a small risk but it can happen. Verb understanding and still wanted to leave AMA. Jacobo Murguia RN, [facility].
--- NOTE | 2018-07-11 12:50 | DS.PCM_ITS ---
Discharge Date and Diagnosis Date of Admission: 07/10/18 Date of Discharge: 07/11/18 - Primary Discharge Diagnosis 1. Acute hypoxic and hypercapnic respiratory failure * Improved * likely multifactorial * Due to the patient's COPD, untreated sleep apnea and polypharmacy. * I did review his OARRS, and shows that he has been receiving methadone as well as gabapentin through Dr. Juan Daniel Gillespie. He has not received any benzodiazepine prescriptions since December 2016. Patient states that he is not taking any benzodiazepines though from documentation, the patient's states that he has been. Complicating the polypharmacy has cyclobenzaprine as well as gabapentin. Both of which have been held. Patient states that he is not smoking marijuana but was recently in a car with his grandson to smoke marijuana. I told the patient that I am not disputing that but I did tell him from the documentation that the said that he had been smoking marijuana recently. He did not dispute that. I advised patient to stop smoking marijuana if he is indeed because if he is then his pain management doctor would likely fire him from his practice. * Echocardiogram has been ordered to evaluate for any kind of worsening heart failure as patient is having increased lower extremity edema. * Chest x-ray was of poor quality due to poor respiratory effort even the repeat was of poor quality. May be some right lower lobe atelectasis, however. * Patient continue with empiric azithromycin for now. * Steroids changed over from Solu-Medrol over to prednisone. Would plan for total 5 days of 40 mg of prednisone burst. * Will need to have a follow-up outpatient polysomnogram for evaluation for sleep apnea. * Follow-up with pulmonology as outpatient. 2. Encephalopathy * Favoring toxic but could be a combination of toxic and metabolic * Resolved at this time 3. Possible acute kidney injury * Creatinine is 1.75, back in March 2017, it was 0.56. * Unclear if this is acute or just progression of chronic kidney disease. * Avoid nephrotoxic agents right now * Follow-up lab work in the morning. 4. Diabetes mellitus type 2 * Uncontrolled. * Certainly due to steroids but patient is also only on NPH 35 units daily. Patient was discharged back and March 2017 and it was 30 units twice daily at that time * We will resume the 30 units twice daily for now plus sliding scale and monitor * Check an A1c 5. Chronic pain Patient sees Dr. Juan Daniel Gillespie and receives gabapentin as well as methadone through him. Methadone has been continued Continue to hold the gabapentin and cyclobenzaprine 6. Possible acute exacerbation of COPD * Patient still continues to smoke. Did advise cessation. * Continue with bronchodilators as well as prednisone - Secondary Discharge Diagnosis Chronic Problems Chronically on opiate therapy (Chronic) COPD exacerbation (Chronic) Cardiomegaly (Chronic) DM type 2 (diabetes mellitus, type 2) (Chronic) HTN (hypertension) (Chronic) Tobacco use disorder (Chronic) Opiate dependence (Chronic) Pericardial effusion (Chronic) HLD (hyperlipidemia) (Chronic) Hospital Course and Treatment Imaging Results: 07/11/18 05:50 Chest 1 View (Portable) [RAD] AM (NON MEDS) 07/11/18 07:16 Echo Complete [ECHO] Routine Operations: None Procedures: None Summary of Care Provided: The patient is a 63 year old M left AMA. [] - Physical Exam Vital Signs Temp Pulse Resp BP Pulse Ox 36.6 C 83 20 H 136/83 H 93 07/11/18 08:00 07/11/18 09:13 07/11/18 09:00 07/11/18 09:13 07/11/18 09:00 Oxygen Flow Rate (L/min) 45 Oxygen Delivery Method Room Air Weight: 114.6 kg Body Mass Index (BMI) 35.2 Finger Stick Blood Glucose 164 Intake and Output for Last 24 Hours 07/09/18 07/10/18 07/11/18 23:59 23:59 23:59 Intake Total 331 / 331 2496 / 2496 Output Total 725 / 725 Balance 331 / 331 1771 / 1771 Laboratory Tests Past 24 Hrs 07/10/18 07/10/18 07/10/18 15:15 15:15 15:15 WBC 8.7 RBC 4.46 L Hgb 14.9 Hct 43.4 MCV 97.3 H MCH 33.4 H MCHC 34.3 RDW 13.0 RDW Differential 46.1 H Plt Count 200 MPV 11.2 Immature Gran % (Auto) 0.200 Neut % (Auto) 52.4 Lymph % (Auto) 31.2 [place] % (Auto) 11.9 H Eos % (Auto) 3.6 Baso % (Auto) 0.7 Absolute Neuts (auto) 4.6 Absolute Lymphs (auto) 2.71 Total Counted Not Reportable Specimen Type Sample Site pH Bicarbonate Actual POC Total CO2 Base Excess O2 Saturation O2 % ABG pCO2 ABG pO2 Bradley Test Respiration Rate O2 Delivery Device Liter Flow EPAP IPAP Blood Gas Notified Whom Blood Gas Notified Time Sodium 136 Potassium 4.0 Chloride 102 Carbon Dioxide 30.0 Anion Gap 4 L BUN 32 H Creatinine 1.59 H Estim Creat Clear Calc 35.76 Est GFR (MDRD) Af Amer 57 L Est GFR (MDRD) Non-Af 47 L BUN/Creatinine Ratio 20.1 H Glucose 110 H Lactic Acid 1.6 Calcium 8.3 L Total Bilirubin AST ALT Alkaline Phosphatase Troponin I < 0.015 B-Natriuretic Peptide Total Protein Albumin Globulin Albumin/Globulin Ratio 07/10/18 07/10/18 07/10/18 15:15 15:39 16:39 WBC RBC Hgb Hct MCV MCH MCHC RDW RDW Differential Plt Count MPV Immature Gran % (Auto) Neut % (Auto) Lymph % (Auto) [place] % (Auto) Eos % (Auto) Baso % (Auto) Absolute Neuts (auto) Absolute Lymphs (auto) Total Counted Specimen Type ART ART Sample Site R Radial L Radial pH 7.18 L* 7.27 L Bicarbonate Actual 25.1 25.9 POC Total CO2 27 28 Base Excess -3 L -1 O2 Saturation 91 L 95 O2 % 40 ABG pCO2 68.0 H* 56.7 H ABG pO2 77 87 Bradley Test POS NA Respiration Rate 12 O2 Delivery Device Nasal Can Bi / C PAP Liter Flow 2.0 EPAP 6 IPAP 16 Blood Gas Notified Whom ED MD ED MD Blood Gas Notified Time 1530 1632 Sodium Potassium Chloride Carbon Dioxide Anion Gap BUN Creatinine Estim Creat Clear Calc Est GFR (MDRD) Af Amer Est GFR (MDRD) Non-Af BUN/Creatinine Ratio Glucose Lactic Acid Calcium Total Bilirubin AST ALT Alkaline Phosphatase Troponin I B-Natriuretic Peptide 44.0 Total Protein Albumin Globulin Albumin/Globulin Ratio 07/10/18 07/10/18 07/10/18 18:49 19:30 20:09 WBC RBC Hgb Hct MCV MCH MCHC RDW RDW Differential Plt Count MPV Immature Gran % (Auto) Neut % (Auto) Lymph % (Auto) [place] % (Auto) Eos % (Auto) Baso % (Auto) Absolute Neuts (auto) Absolute Lymphs (auto) Total Counted Specimen Type ART ART Sample Site R Radial R Radial pH 7.22 L 7.28 L Bicarbonate Actual 25.6 25.8 POC Total CO2 27 27 Base Excess -2 -1 O2 Saturation 93 L 91 L O2 % 30 30 ABG pCO2 62.3 H 54.6 H ABG pO2 80 71 L Bradley Test POS POS Respiration Rate 12 16 O2 Delivery Device Bi / C PAP Bi / C PAP Liter Flow EPAP 8 8 IPAP 20 20 Blood Gas Notified Whom HOSP MD HOSP MD Blood Gas Notified Time 1844 2004 Sodium Potassium Chloride Carbon Dioxide Anion Gap BUN Creatinine Estim Creat Clear Calc Est GFR (MDRD) Af Amer Est GFR (MDRD) Non-Af BUN/Creatinine Ratio Glucose Lactic Acid Calcium Total Bilirubin AST ALT Alkaline Phosphatase Troponin I < 0.015 B-Natriuretic Peptide Total Protein Albumin Globulin Albumin/Globulin Ratio 07/10/18 07/11/18 07/11/18 22:30 01:30 04:35 WBC 8.9 RBC 4.51 L Hgb 14.6 Hct 42.9 MCV 95.1 H MCH 32.4 H MCHC 34.0 RDW 12.4 RDW Differential 42.3 Plt Count 180 MPV 11.7 Immature Gran % (Auto) 0.200 Neut % (Auto) 90.3 H Lymph % (Auto) 8.2 L [place] % (Auto) 1.1 Eos % (Auto) 0.1 Baso % (Auto) 0.1 Absolute Neuts (auto) 8.0 H Absolute Lymphs (auto) 0.73 L Total Counted Not Reportable Specimen Type Sample Site pH Bicarbonate Actual POC Total CO2 Base Excess O2 Saturation O2 % ABG pCO2 ABG pO2 Bradley Test Respiration Rate O2 Delivery Device Liter Flow EPAP IPAP Blood Gas Notified Whom Blood Gas Notified Time Sodium Potassium Chloride Carbon Dioxide Anion Gap BUN Creatinine Estim Creat Clear Calc Est GFR (MDRD) Af Amer Est GFR (MDRD) Non-Af BUN/Creatinine Ratio Glucose Lactic Acid Calcium Total Bilirubin AST ALT Alkaline Phosphatase Troponin I < 0.015 < 0.015 B-Natriuretic Peptide Total Protein Albumin Globulin Albumin/Globulin Ratio 07/11/18 04:35 WBC RBC Hgb Hct MCV MCH MCHC RDW RDW Differential Plt Count MPV Immature Gran % (Auto) Neut % (Auto) Lymph % (Auto) [place] % (Auto) Eos % (Auto) Baso % (Auto) Absolute Neuts (auto) Absolute Lymphs (auto) Total Counted Specimen Type Sample Site pH Bicarbonate Actual POC Total CO2 Base Excess O2 Saturation O2 % ABG pCO2 ABG pO2 Bradley Test Respiration Rate O2 Delivery Device Liter Flow EPAP IPAP Blood Gas Notified Whom Blood Gas Notified Time Sodium 133 L Potassium 5.0 Chloride 98 Carbon Dioxide 25.0 Anion Gap 10 BUN 38 H Creatinine 1.75 H Estim Creat Clear Calc 44.61 Est GFR (MDRD) Af Amer 51 L Est GFR (MDRD) Non-Af 42 L BUN/Creatinine Ratio 21.7 H Glucose 347 H Lactic Acid Calcium 8.0 L Total Bilirubin 0.40 AST 43 H ALT 51 Alkaline Phosphatase 101 Troponin I B-Natriuretic Peptide Total Protein 6.9 Albumin 3.1 L Globulin 3.8 Albumin/Globulin Ratio 0.8 L POC Glucose 07/11/18 07/10/18 07/10/18 06:56 21:29 17:16 POC Glucose 347 H 434 H 173 H Discharge Diet: No Restrictions Discharge Activity: Return to Normal Activity Home Medications: Medications to take at Discharge Methadone HCl 10 mg PO 4X/DAY PRN 04/23/16 Nitroglycerin [Nitrostat] 0.4 mg SL PRN PRN 04/23/16 cycloBENZAPRine HCl [Flexeril] 10 mg PO TID PRN #20 tab 03/02/17 Acetaminophen [Tylenol Tablet] 500 mg PO Q4H PRN PRN tablet 03/08/17 Gabapentin [Neurontin] 600 mg PO TID PRN 07/10/18 Insulin NPH Human [Humulin N Pen] 35 units SC DAILY 07/10/18 Insulin Regular, Human [Novolin R] 2 - 10 unit SC TIDCM 07/10/18 Metoprolol Tartrate [Lopressor (beta sharon)] 50 mg PO BID 07/10/18 Sertraline HCl 150 mg PO DAILY 07/10/18 Primary Care Physician: Luis Starr DO [Primary Care Provider] - Disposition: Against Medical Advice Minutes spent on discharge:: 32 Patient Condition:: Good Medical Necessity - Tobacco Use Smoking Status: Current every day smoker Tobacco Use: Cigarettes Meaningful Use Info Meaningful Use Diagnoses (Choose all that apply): None applicable Code Visit Inpatient E&M: 03982 Disch Hosp
== END 2018-07-11 10:10 | disposition left against medical advice (07) | DRG 133 ==
LOC: ED 16:37 → ICU 16:40
PROVIDERS: Admitting Provider Internal Medicine; Emergency Provider Emergency Medicine; Family Provider Student in an Organized Health Care Education/Training Program; PCP Student in an Organized Health Care Education/Training Program; Referring Provider Internal Medicine
DX: J96.02 Acute respiratory failure with hypercapnia (principal); J18.9 Pneumonia, unspecified organism; J96.01 Acute respiratory failure with hypoxia; N17.9 Acute kidney failure, unspecified; J44.0 Chronic obstructive pulmonary disease with (acute) lower respiratory infection; E78.5 Hyperlipidemia, unspecified; G93.41 Metabolic encephalopathy; G25.81 Restless legs syndrome; F17.210 Nicotine dependence, cigarettes, uncomplicated; G89.4 Chronic pain syndrome; F12.10 Cannabis abuse, uncomplicated; E44.0 Moderate protein-calorie malnutrition; F11.20 Opioid dependence, uncomplicated; I31.3 Pericardial effusion (noninflammatory); J44.1 Chronic obstructive pulmonary disease with (acute) exacerbation; I50.30 Unspecified diastolic (congestive) heart failure; I11.0 Hypertensive heart disease with heart failure
CPT/HCPCS: 36600; 71045; 80048; 80053; 82803; 82962; 83605; 83880; 84484; 85025; 87040; 93005; 94002; 94003; 94640; 97802; 99251; 99285; 99406; J7030; J7040; A4216; G0463; J2310; J2405

== ENCOUNTER 2020-06-28 14:03 | Observation (INO) | payer MEDICAID, SELFPAY ==
[2018-07-19 13:15] VITALS: BMI 35.2
[2020-06-28] VITALS (20 sets, daily range): BP systolic 136–229; BP diastolic 68–176; PULSE 89–123; RESP 12–36; TEMP 35.9–36.4; O2SAT 95–98; BMI 31.6; BMI 30.7
[2020-06-28 14:16] LABS: Bedside Glucose 417 mg/dL (70-110)
--- NOTE | 2020-06-28 14:16 | EKG12_ITS ---
Test Reason : Blood Pressure : / mmHG Vent. Rate : 103 BPM Atrial Rate : 103 BPM P-R Int : 140 ms QRS Dur : 094 ms QT Int : 376 ms P-R-T Axes : 025 -32 030 degrees QTc Int : 492 ms Sinus tachycardia Left axis deviation Inferior infarct , age undetermined Abnormal ECG Confirmed by ROSA M MARTI, ANNE ([id number]), technical writer and editor ANNA MOISE ([id number]) on 07/03/2020 10:03:28 A M Referred By: ESTUARDO Confirmed By:SHIRA MEDEROS MD
--- NOTE | 2020-06-28 14:16 | CT_ITS ---
STUDY: CT BRAIN WITHOUT CONTRAST REASON FOR EXAM: Male, 64 years old. right arm weakness RADIATION DOSAGE (If Supplied By Facility): CTDIvol = ( 44.99 ) mGy, DLP = ( 846.73 ) mGycm TECHNIQUE: Transaxial CT imaging of the brain was performed without administration of intravenous contrast material. Individualized dose optimization techniques were used for this CT. COMPARISON: 07/27/2011 FINDINGS: Normal soft tissue structures. Normal calvarium. There is mild cerebral atrophy with widening of the extra-axial spaces and ventricular dilatation. There are areas of decreased attenuation within the white matter tracts of the supratentorial brain, consistent with microvascular disease changes. There are bilateral lacunar infarcts of the basal ganglia and thalami. Normal brainstem. There is mild cerebellar atrophy. There is no intracranial hemorrhage. There are no findings of an acute ischemic infarction. Normal visualized paranasal sinuses. CT/Brain/Head without Contrast IMPRESSION: Chronic involutional changes of the brain. No definite acute abnormality. Electronically Signed: Kian Acosta MD at 16:10 EDT , Service support ,
--- NOTE | 2020-06-28 14:16 | RAD_ITS ---
STUDY: X-RAY CHEST REASON FOR EXAM: Male, 64 years old. Worsening shortness of breath TECHNIQUE: Single AP portable view of the chest. COMPARISON: 07/11/2018 FINDINGS: EKG leads overlie the chest There are interstitial changes of the lungs. There is no demonstrated pleural abnormality. Normal size heart. Normal mediastinum and lily. Normal visualized pulmonary arteries. Normal visualized aortic arch and descending thoracic aorta. There are diffuse degenerative changes of the visualized thoracic spine. There is degenerative osteoarthritis of the bilateral shoulders. There is no demonstrated abnormality of the visualized soft tissue structures of the upper abdomen. RAD/Chest 1 View (Portable) IMPRESSION: Chronic interstitial changes, no superimposed acute pulmonary process Electronically Signed: Wally Selby MD at 15:00 EDT , Service support ,
--- NOTE | 2020-06-28 14:18 | EX.ED.DYSGE1 ---
HPI History of Present Illness Chief Complaint: Alt LOC Detail of Chief Complaint: Right arm weakness Informant: patient Onset/Context/Timing Onset: Days (5 days ago) Narrative Narrative: Patient presents to the emergency department complaint of right arm weakness that started 5 days ago. Patient was worried about Covid and did not want to come to the emergency department to get evaluated. Patient also complaining of some pain in his right neck and right shoulder. He complains of a headache. He states that he is had some foggy vision for the last 3 days. He denies fever or cough or recent illness otherwise. He does complain of some exertional dyspnea. Patient's been without some of his medications for several days and has an appointment to see his primary care physician tomorrow before he can get his refills. Patient has history of COPD and CHF. No prior history of stroke. He does have history of chronic kidney disease. Patient has had prior low back surgery about 25 to 30 years ago and apparently was also evaluated for the neck pain that he had at that time and was told that the surgeon would not touch his neck at that time which was 25 to 30 years ago. Prior similar symptoms: No PFSH PFSH Medical History (Updated 06/28/20 @ 19:[address] Abdoulaye Moore, DO) Acute respiratory failure with hypoxia and hypercapnia Anxiety Cardiomegaly Chronic kidney disease (CKD) Chronic pain Chronic pain Chronically on opiate therapy COPD (chronic obstructive pulmonary disease) Encephalopathy Essential (primary) hypertension History of sepsis HLD (hyperlipidemia) Kidney stones Nicotine dependence Opiate dependence EBONY and COPD overlap syndrome Pericardial effusion Pleural effusion Type 2 diabetes mellitus Home Medications methadone 10 mg PO 4X/DAY PRN 04/23/16 [History Last Taken 06/28/20 10:30] nitroglycerin 0.4 mg SL PRN PRN 04/23/16 [History Last Taken 09/15/16] cyclobenzaprine 10 mg PO TID PRN #20 tab 03/02/17 [Rx Last Taken 03/03/17 20:00] acetaminophen 500 mg PO Q4H PRN PRN tab 03/08/17 [Rx Last Taken Unknown] gabapentin 600 mg PO TID PRN 07/10/18 [History Last Taken 06/28/20 09:00] insulin regular human 2 - 10 unit SUBCUT TIDCM 07/10/18 [History Last Taken 06/28/20 13:30 13 units] metoprolol tartrate 50 mg PO BID 07/10/18 [History Last Taken 06/26/20] albuterol sulfate 90 mcg/actuation aerosol inhaler 2 puff INHALATION Q4H PRN 16 Days #18 g 07/19/18 [History Last Taken 06/27/20] cholecalciferol (vitamin D3) 1,250 mcg (50,000 unit) capsule 1,250 mcg PO DAILY #12 cap 08/10/18 [History Last Taken 06/28/20] hydrochlorothiazide 25 mg tablet 25 mg PO DAILY #90 tab 08/10/18 [History Last Taken 06/27/20] amitriptyline 50 - 100 mg PO QHS PRN 06/28/20 [History Last Taken Unknown] sertraline 150 mg PO DAILY 06/28/20 [History Last Taken 06/28/20] Allergy/AdvReac Type Severity Reaction Status Date / Time No Known Allergies Allergy Verified 06/28/20 14:10 Family History Uncle Myocardial infarction Father Diabetes Melanoma Mother Diabetes Surgical History History of back surgery History of cholecystectomy History of tonsillectomy Hx of appendectomy Social History Smoking Status: Current every day smoker Tobacco: How many years used: 20 ROS ROS ED Constitutional Constitutional ED: Reports systems reviewed and no addt'l complaints, except as documented; Denies body ache(s), change in weight or chills Eyes Eyes: Denies acute decrease in peripheral vision, change in vision, double vision or loss of vision ENT ENT ED: Reports none; Denies ear pain, lip swelling, loss taste/smell, neck pain, otalgia or sore throat Cardiovascular Cardiovascular: Reports none; Denies abdominal pain, chest pain with activity, leg edema, lightheadedness, palpitations, rapid heart rate or syncope Respiratory/Chest Respiratory/Chest: Reports none; Denies change in mental status, dry cough, dyspnea, hemoptysis, shortness of breath at rest or shortness of breath with exertion Gastrointestinal Gastrointestinal: Reports none; Denies abdominal pain, change in stool character, diarrhea, hematemesis, hematochezia, melena, rectal bleeding or vomiting Genitourinary Genitourinary ED: Reports none; Denies abdominal discomfort, anuria, dysuria, genital pain or polyuria Musculoskeletal Musculoskeletal: Reports none and neck pain; Denies arthralgias, back pain, difficulty walking, extremity pain, muscle weakness or myalgias Integumentary Reports none; Denies abscess or rash Neurologic Neurologic: Reports none, headache(s), paresthesias, weakness and other Details: Patient with right arm weakness for 5 days ; Denies abnormal gait, confusion, focal weakness, frequent falls, loss of vision, numbness, radicular pain or vertigo Psychiatric Psychiatric: Reports systems reviewed and no addt'l complaints, except as documented and none; Denies behavioral changes, confusion, difficulty concentrating, hallucinations, suicidal ideation, tactile hallucinations or visual hallucinations Endocrine Endocrinology: Denies none, cold intolerance, excessive sweating, fatigue or heat intolerance Hematologic/Lymphatic Hematologic/Lymphatic: Reports none; Denies anemia, easy bleeding or easy bruising Allergic/Immunologic Allergic/Immunologic ED: Denies as per HPI, none, lip swelling, mouth swelling, throat swelling, tongue swelling or hives EXAM Physical Exam Const Vital Signs: 06/28/20 14:06 06/28/20 15:00 06/28/20 15:10 Temperature 97.6 F L Temperature Source Oral Pulse Rate 109 H 105 H 105 H Respiratory Rate 22 H 36 H 30 H Respiratory Effort Short of Breath Labored Respiratory Depth Shallow Blood Pressure 136/68 H Blood Pressure Mean 90 Pulse Ox 95 97 Oxygen Delivery Method Room Air Bi-pap Fraction of Inspired Oxygen (FIO2) 06/28/20 15:38 06/28/20 16:28 06/28/20 16:39 Temperature Temperature Source Pulse Rate 100 97 Respiratory Rate 22 H 25 H Respiratory Effort Respiratory Depth Blood Pressure 165/89 H Blood Pressure Mean 114 Pulse Ox 96 96 Oxygen Delivery Method Room Air Fraction of Inspired Oxygen (FIO2) 06/28/20 17:40 Temperature Temperature Source Pulse Rate Respiratory Rate Respiratory Effort Respiratory Depth Blood Pressure Blood Pressure Mean Pulse Ox Oxygen Delivery Method Fraction of Inspired Oxygen (FIO2) 21 Positive well nourished and well developed General Appearance ED: well developed and NAD HEENT Reports TM's clear and moist mucous membranes normocephalic and atraumatic; Negative for trauma or tenderness Tympanic Membrane ED: Yes TM's clear Eyes PERRL and EOMs intact bilaterally General Eye ED: Negative for pale conjunctiva or scleral icterus Neck no lymphadenopathy, supple and no JVD General: Negative for tenderness Chest Wall inspection of chest normal and palpation of chest normal Chest: Negative for tenderness Resp normal respiratory effort and clear to auscultation bilaterally Effort and Inspection: Negative for respiratory distress or pain with movement Auscultation: rales and wheezes; Negative for rhonchi or diminished lung sounds Cardio regular rate, regular rhythm, S1 normal heart sound, S2 normal heart sound and no murmurs Peripheral Pulses: pulses 2+ throughout GI normal to inspection, nondistended, normoactive bowel sounds, soft to palpation, non-tender, non-distended and no masses Back/Spine no CVA tenderness and no thoracic nor lumbar tenderness Extremity normal to inspection Extremity Narrative: Patient with weakness noted to the right arm. He has decreased ability to lift the arm off the bed at the shoulder. General Extremety ED: Negative for edema General Extremity: Negative for edema Neuro oriented x3, CN's II-XII intact bilaterally, no sensory deficits noted and gait normal Neuro Narrative: Patient with weakness of the right arm at the shoulder. 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 Patient has normal sensation to the right arm. Sensorium / Orientation: awake, alert, oriented to person, oriented to place and oriented to time Motor Exam: strength abnormal; Negative for strength 5/5 throughout Psych mental status grossly normal Skin no rashes or lesions noted and no wounds MDM MDM MDM Narrative Medical decision making narrative: This point etiology of the weakness of the right arm is unclear. In the differential would be stroke versus cervical radiculopathy or impingement. Patient will need further work-up and evaluation such as possibly MRI of the brain and of the neck to evaluate further. Patient also dyspneic on arrival and improved with BiPAP. I will start him on Solu-Medrol as I suspect he may have COPD exacerbation. Lab Data Attestation: I reviewed the patient's lab results. Labs: Laboratory Results - last 24 hr 06/28/20 06/28/20 06/28/20 14:09 14:12 14:12 WBC 10.3 RBC 5.04 Hgb 16.4 Hct 48.4 MCV 96.0 H MCH 32.5 H MCHC 33.9 RDW Std Deviation 46.2 H RDW Coeff of Khris 13.0 Plt Count 209 MPV 11.3 Immature Gran % (Auto) 0.200 Neut % (Auto) 66.8 Lymph % (Auto) 23.3 [place] % (Auto) 6.9 Eos % (Auto) 2.0 Baso % (Auto) 0.8 Absolute Neuts (auto) 6.9 Absolute Lymphs (auto) 2.39 Nucleated RBC % 0 D-Dimer Quant (PE/DVT) Sodium 132 L Potassium 4.1 Chloride 98 Carbon Dioxide 27.0 Anion Gap 7 BUN 28 H Creatinine 1.35 H Estim Creat Clear Calc 58.88 Est GFR (MDRD) Af Amer 68 Est GFR (MDRD) Non-Af 56 L BUN/Creatinine Ratio 20.7 H Glucose 495 H* Calcium 9.2 Troponin I < 0.015 B-Natriuretic Peptide Ur Drug Screen Comment POC Glucose 417 H 06/28/20 06/28/20 06/28/20 14:12 14:12 18:30 WBC RBC Hgb Hct MCV MCH MCHC RDW Std Deviation RDW Coeff of Khris Plt Count MPV Immature Gran % (Auto) Neut % (Auto) Lymph % (Auto) [place] % (Auto) Eos % (Auto) Baso % (Auto) Absolute Neuts (auto) Absolute Lymphs (auto) Nucleated RBC % D-Dimer Quant (PE/DVT) 0.48 Sodium Potassium Chloride Carbon Dioxide Anion Gap BUN Creatinine Estim Creat Clear Calc Est GFR (MDRD) Af Amer Est GFR (MDRD) Non-Af BUN/Creatinine Ratio Glucose Calcium Troponin I B-Natriuretic Peptide 57.7 Ur Drug Screen Comment POC Glucose Radiography Chest X-Ray - ED: 1 View Diagnostic Testing: Radiology Impression Brain CT 06/28/20 14:16 IMPRESSION: Chronic involutional changes of the brain. No definite acute abnormality. Electronically Signed: Kian Acosta MD at 16:10 EDT , Service support , Chest X-Ray 06/28/20 14:16 IMPRESSION: Chronic interstitial changes, no superimposed acute pulmonary process Electronically Signed: Wally Selby MD at 15:00 EDT , Service support , Chest CTA 06/28/20 17:21 IMPRESSION: Normal CTA chest examination, without a demonstrated pulmonary embolism or arterial dissection. Pericardial effusion. Low lung volumes. Atelectasis or scarring in both posterior lung bases. Electronically Signed: Kian Acosta MD at 18:55 EDT , Service support , Head/Neck CTA 06/28/20 17:21 IMPRESSION: No occlusion. No intraluminal thrombi. High-grade stenosis of the origin of the right ICA. Low-grade plaque and stenoses elsewhere as above. Electronically Signed: Kian Acosta MD at 18:48 EDT , Service support , 1 view chest x-ray obtained interpreted by myself as no acute disease process. Radiology in agreement. EKG Initial EKG: Comments: Rhythm with a ventricular rate of 103 bpm with old inferior infarct noted Prior EKG tracings: available for review Prior: Unchanged Discharge Plan Triage Chief Complaint: Alt LOC ED Provider: Abdoulaye Moore Dx/Rx/DC Orders Clinical Impression: COPD (chronic obstructive pulmonary disease), Cervical radiculopathy Prescriptions: No Action albuterol sulfate 90 mcg/actuation HFA aerosol inhaler 2 puff INHALATION Q4H PRN (Reason: sob) 16 Days Qty: 18 RF: 0 hydrochlorothiazide 25 mg tablet 25 mg PO DAILY Qty: 90 RF: 0 cholecalciferol (vitamin D3) 50,000 unit capsule 1,250 mcg PO DAILY Qty: 12 RF: 0 nitroglycerin 0.4 MG tablet, sublingual 0.4 mg SL PRN PRN (Reason: pain) RF: 0 methadone 10 MG tablet 10 mg PO 4X/DAY PRN (Reason: Pain) RF: 0 cyclobenzaprine 10 MG tablet 10 mg PO TID PRN (Reason: Muscle Spasm) Qty: 20 RF: 0 acetaminophen 325 MG tablet 500 mg PO Q4H PRN PRN (Reason: FEVER) RF: 0 metoprolol tartrate 50 MG tablet 50 mg PO BID RF: 0 insulin regular human 100 UNIT/ML solution 2 - 10 unit subcut TIDCM RF: 0 gabapentin 300 capsule 600 mg PO TID PRN (Reason: Pain) RF: 0 sertraline 100 mg tablet 150 mg PO DAILY RF: 0 amitriptyline 50 mg tablet 50 - 100 mg PO QHS PRN (Reason: Sleep) RF: 0 Primary Care Provider: Luis Starr Referrals: Luis Starr DO [Primary Care Provider] - Disposition Disposition: Acute Care Hospital [facility]
[2020-06-28] MEDS: 0.9% Normal Saline 1,000 ML 1000 ML IV (14:20)
[2020-06-28 14:47] LABS: Absolute Lymphocyte Count 2.39 X10^3/uL (0.83-4.51); Absolute Neutrophil Count 6.9 X10^3/uL (2.0-7.7); Basophil# 0.08 X10^3/uL; Basophil% 0.8 % (0-1); Eosinophil# 0.21 X10^3/uL; Hematocrit 48.4 % (40-54); Hemoglobin 16.4 g/dL (13.0-16.5); Lymphocyte # 2.39 X10^3/ul (0.83-4.51); Lymphocyte % 23.3 % (19-41); Mean Corp Hgb Conc 33.9 g/dL (32-36); Mean Corpuscular Hgb 32.5 pg (27.0-32.0); Mean Platelet Vol. 11.3 fl (6.2-12.0); Monocyte# 0.71 X10^3/uL; Monocyte% 6.9 % (0-10); NRBC Flagged by Analyzer 0 % (0-5); Neutrophil # 6.86 X10^3/uL (2.7-7.7); Neutrophil % 66.8 % (47-70); Platelet Count 209 K/mm3 (150-450); RBC Distribution Width SD 46.2 fl (35.1-43.9); Red Blood Count 5.04 M/mm3 (4.6-6.2); White Blood Count 10.3 K/mm3 (4.4-11.0)
[2020-06-28] MEDS: Ipratropium/Albuterol Sulfate 3 ML AMPUL.NEB INHALATION (14:59)
[2020-06-28 15:01] LABS: Anion Gap 7 (5-15); BUN 28 mg/dL (7-18); BUN/Creat Ratio 20.7 RATIO (10-20); Calcium,Total 9.2 mg/dL (8.5-10.1); Chloride 98 mmol/L (98-107); Creatinine, Serum 1.35 mg/dL (0.70-1.30); EST Glomerular Filtration Rate 56 mL/min (>60); Est Glom Filt Rate - Afr Amer 68 mL/min (>60); Estimated Creatinine Clearance 58.88 ml/min; Glucose 495 mg/dL (74-106); Potassium 4.1 mmol/L (3.5-5.1); Sodium Level 132 mmol/L (136-145)
[2020-06-28 15:05] LABS: BNP,B-Type NATRIURETIC PEPTIDE 57.7 pg/mL (0-100)
--- NOTE | 2020-06-28 15:10 | CPS ---
Patient needing a head CT, he is unable to lay flat due to work of breathing. Dr Moore and patient agreeable to place patient on BiPAP for the testing.
[2020-06-28 15:35] LABS: D-Dimer Quantitative (DVT/PE) 0.48 FEU/ug/m (0.27-0.49)
[2020-06-28] MEDS: 0.9% Normal Saline 1,000 ML 15 ML IV (15:40)
--- NOTE | 2020-06-28 15:40 | CPS ---
Patient tolerating BiPAP well and able to lay flat with increased BiPAP Pressures. Patient tolerated transport to Imaging on BiPAP machine well.
--- NOTE | 2020-06-28 16:39 | CPS ---
BiPAP settings decreased to 12/6. Patient sleeping soundly.
--- NOTE | 2020-06-28 17:21 | CT_ITS ---
STUDY: CTA CHEST REASON FOR EXAM: Male, 64 years old. dyspnea, elevated d-dimer RADIATION DOSAGE (If Supplied By Facility): CTDIvol = ( 26.95 ) mGy, DLP = ( 892.73 ) mGycm TECHNIQUE: The examination was performed with the intravenous administration of IV 100mL Isovue-370. Post-processing of the angiographic images was performed, with multiplanar reformation and 3D reconstruction. Individualized dose optimization techniques were used for this CT. COMPARISON: None. FINDINGS: Normal enhancement of the main pulmonary artery and right and left pulmonary arteries. Normal enhancement of the bilateral peripheral pulmonary arteries. There is no demonstrated pulmonary embolism. Normal thoracic aorta and visualized great vessels. There is no demonstrated aortic dissection. Mild cardiomegaly. Moderate pericardial effusion. Calcified coronary arteries. Normal mediastinum. Normal hilar regions. Normal visualized trachea and bronchi. The lungs are under expanded. There is elevation of the left hemidiaphragm. Scarring and/or subsegmental atelectasis in both posterior lung bases. No effusions. There are degenerative changes of thoracic spine. Normal visualized upper abdomen. CT/CTA Chest W/WO Contrast IMPRESSION: Normal CTA chest examination, without a demonstrated pulmonary embolism or arterial dissection. Pericardial effusion. Low lung volumes. Atelectasis or scarring in both posterior lung bases. Electronically Signed: Kian Acosta MD at 18:55 EDT , Service support ,
--- NOTE | 2020-06-28 17:21 | CT_ITS ---
STUDY: CTA HEAD AND NECK WITH CONTRAST REASON FOR EXAM: Male, 64 years old. right arm weakness RADIATION DOSAGE (If Supplied By Facility): CTDIvol = ( 26.21 ) mGy, DLP = ( 1003.98 ) mGycm TECHNIQUE: CT angiography was performed with a multi-detector CT scanner. Data acquisition was obtained from the skull base through the vertex following intravenous administration of IV 100mL Isovue-370. MIP images were reconstructed from the axial data set. Post-processing of the angiographic images was performed, with multiplanar reformation and 3D reconstruction. Individualized dose optimization techniques were used for this CT. COMPARISON: No relevant priors. FINDINGS: Normal bilateral petrous carotid arteries. There is calcified plaque formation of the right cavernous carotid artery, with a mild stenosis (less than 50%). There is calcified plaque formation of the left cavernous carotid artery, with a mild stenosis (less than 50%). Normal right A1 segments of the anterior cerebral artery. Normal left A1 segments of the anterior cerebral artery. Normal intact anterior communicating artery (ACOM). Normal bilateral A2 segments of the anterior cerebral arteries. Normal right M1 and M2 segments of the middle cerebral arteries, with a normal M1 bifurcation. Normal left M1 and M2 segments of the middle cerebral arteries, with a normal M1 bifurcation. Normal right posterior communicating artery (PCOM). Normal left posterior communicating artery (PCOM). There is a small atretic left vertebral artery with a dominant right vertebral artery. Normal basilar artery with a normal basilar bifurcation. The visualized bilateral superior cerebellar (SCA) arteries are normal. Normal bilateral P1, P2 and visualized P3 segments of the posterior cerebral arteries. There is no demonstrated aneurysm of the [place] of [place]. AORTIC ARCH: Normal visualized aortic arch. Normal origins of the brachiocephalic, left common carotid, and left subclavian arteries. RIGHT CAROTID ARTERIES: Normal right common carotid artery (CCA). There is moderate atherosclerotic plaque formation with moderate narrowing of the right carotid bulb. There is extensive atherosclerotic plaque formation of the origin of the right internal carotid artery with an estimated stenosis of greater than 70%. Normal visualized cervical portion of the right internal carotid artery. Normal origin of the right external carotid artery (ECA). LEFT CAROTID ARTERIES: Normal left common carotid artery (CCA). There is mild atherosclerotic plaque formation with minimal narrowing of the left carotid bulb. There is mild atherosclerotic plaque formation of the origin of the left internal carotid artery with less than 50% cross sectional diameter stenosis. Normal visualized cervical portion of the left internal carotid artery. Normal origin of the left external carotid artery (ECA). VERTEBRAL ARTERIES: There is enhancement within the bilateral vertebral arteries with a small left vertebral artery, and a dominant right vertebral artery. CT/CTA Head AND Neck W/ Contrast IMPRESSION: No occlusion. No intraluminal thrombi. High-grade stenosis of the origin of the right ICA. Low-grade plaque and stenoses elsewhere as above. Electronically Signed: Kian Acosta MD at 18:48 EDT , Service support ,
--- NOTE | 2020-06-28 17:24 | NURSING ---
DR ADAL MARTE
--- NOTE | 2020-06-28 17:40 | CPS ---
BiPAP turned back on and placed back on patient at this time, pressures increased to 16/7 for increased work of breathing.
[2020-06-28] MEDS: LORazepam 2 MG/ML Syringe 1 MG IV (17:41)
--- NOTE | 2020-06-28 17:48 | PCM.HP.STD ---
Documented by User: Amberly Capellan [employer]ET[employer] EMPLOY[employer] REPRESENTATIVE, V[employer] EMPLOYMENT REPRESENTATIVE-C 06/28/20 18:19 HPI - General HPI Narrative KENDRA BAILEY, is a 64 M who presents to the emergency room due to right arm weakness, pain and altered mental status. Patient confused and restless during exam. HPI provided by at bedside. Patient's states patient's right arm became weak 5 days ago and due to Covid, patient did not want to come to the hospital for evaluation. She states his speech has been slow however denies slurred speech, facial droop or other neurologic symptoms. No right leg weakness. states patient has a history of back pain with prior spine surgeries. He was evaluated for neck pain in the past and states surgeon said stated they would not touch his neck. Today, patient was lethargic and confused and called the squad. Patient is restless and confused in emergency room however does complain of right shoulder and arm pain. He has a past medical history of chronic pain syndrome on methadone, tobacco dependence, hypertension, hyperlipidemia, type 2 diabetes mellitus, EBONY, depression, anxiety. [facility] Medical History (Updated 06/28/20 @ 19:[address] Abdoulaye Moore, ) Acute respiratory failure with hypoxia and hypercapnia Anxiety Cardiomegaly Chronic kidney disease (CKD) Chronic pain Chronic pain Chronically on opiate therapy COPD (chronic obstructive pulmonary disease) Encephalopathy Essential (primary) hypertension History of sepsis HLD (hyperlipidemia) Kidney stones Nicotine dependence Opiate dependence EBONY and COPD overlap syndrome Pericardial effusion Pleural effusion Type 2 diabetes mellitus Home Medications methadone 10 mg PO 4X/DAY PRN 04/23/16 [History Last Taken 06/28/20 10:30] nitroglycerin 0.4 mg SL PRN PRN 04/23/16 [History Last Taken 09/15/16] cyclobenzaprine 10 mg PO TID PRN #20 tab 03/02/17 [Rx Last Taken 03/03/17 20:00] acetaminophen 500 mg PO Q4H PRN PRN tab 03/08/17 [Rx Last Taken Unknown] gabapentin 600 mg PO TID PRN 07/10/18 [History Last Taken 06/28/20 09:00] insulin regular human 2 - 10 unit SUBCUT TIDCM 07/10/18 [History Last Taken 06/28/20 13:30 13 units] metoprolol tartrate 50 mg PO BID 07/10/18 [History Last Taken 06/26/20] albuterol sulfate 90 mcg/actuation aerosol inhaler 2 puff INHALATION Q4H PRN 16 Days #18 g 07/19/18 [History Last Taken 06/27/20] cholecalciferol (vitamin D3) 1,250 mcg (50,000 unit) capsule 1,250 mcg PO DAILY #12 cap 08/10/18 [History Last Taken 06/28/20] hydrochlorothiazide 25 mg tablet 25 mg PO DAILY #90 tab 08/10/18 [History Last Taken 06/27/20] amitriptyline 50 - 100 mg PO QHS PRN 06/28/20 [History Last Taken Unknown] sertraline 150 mg PO DAILY 06/28/20 [History Last Taken 06/28/20] Allergy/AdvReac Type Severity Reaction Status Date / Time No Known Allergies Allergy Verified 06/28/20 14:10 Family History Uncle Myocardial infarction Father Diabetes Melanoma Mother Diabetes Surgical History History of back surgery History of cholecystectomy History of tonsillectomy Hx of appendectomy Social History Smoking Status: Current every day smoker Tobacco: How many years used: 20 ROS Constitutional Constitutional: Reports other Details: Altered mental status, lethargy ; Denies change in weight, chills, fatigue, fever(s) or weakness Cardiovascular Cardiovascular: Denies chest pain, edema, lightheadedness, palpitations or syncope Respiratory/Chest Respiratory/Chest: Denies cough, dyspnea, productive cough, shortness of breath at rest, shortness of breath with exertion or wheezing Gastrointestinal Gastrointestinal: Denies abdominal pain, constipation, diarrhea, nausea or vomiting Genitourinary Genitourinary: Denies burning urination, difficulty urinating, dysuria, hematuria, urinary frequency, urinary incontinence or urinary urgency Musculoskeletal Musculoskeletal: Reports other Details: Right arm weakness and pain, neck pain ; Denies back pain, joint pain or muscle weakness Integumentary Integumentary: Reports systems reviewed and no addt'l complaints, except as documented Neurologic Neurologic: Reports confusion, focal weakness and other Details: Right arm weakness and pain ; Denies abnormal speech, dizziness, numbness, paresthesias, seizure-like activity or syncope Psychiatric Psychiatric: Denies anxiety or depression Hematologic/Lymphatic Hematologic/Lymphatic: Denies anemia, easy bleeding or easy bruising Allergic/Immunologic Allergic/Immunologic: Denies hives or asthma Vital Signs Vital Signs Vital Signs: 06/28/20 14:06 06/28/20 15:00 06/28/20 15:10 Temperature 97.6 F L Temperature Source Oral Pulse Rate 109 H 105 H 105 H Respiratory Rate 22 H 36 H 30 H Respiratory Effort Short of Breath Labored Respiratory Depth Shallow Blood Pressure 136/68 H Blood Pressure Mean 90 Pulse Ox 95 97 Oxygen Delivery Method Room Air Bi-pap Fraction of Inspired Oxygen (FIO2) 06/28/20 15:38 06/28/20 16:28 06/28/20 16:39 Temperature Temperature Source Pulse Rate 100 97 Respiratory Rate 22 H 25 H Respiratory Effort Respiratory Depth Blood Pressure 165/89 H Blood Pressure Mean 114 Pulse Ox 96 96 Oxygen Delivery Method Room Air Fraction of Inspired Oxygen (FIO2) Physical Exam Const Constitutional Narrative: Restless, appears drowsy, confused Orientation / Consciousness: awake, oriented to person, oriented to place, oriented to time and confused HEENT normocephalic and moist oral mucous membranes Eyes PERRL, EOMs intact bilaterally and conjunctivae normal Neck no lymphadenopathy Resp clear to auscultation bilaterally Auscultation: diminished lung sounds Cardio regular rate, regular rhythm and no murmurs Peripheral Pulses: pulses 2+ throughout GI normal to inspection, nondistended, normoactive bowel sounds, non-tender and non-distended Extremity normal to inspection Skin no rashes or lesions noted Lesions: no lesions Rashes: no rashes Trauma: no lacerations or abrasions Neuro CN's II-XII intact bilaterally, no sensory deficits noted and deep tendon reflexes 2+ bilaterally Neuro Narrative: Right arm weakness Psych mental status grossly normal Mood & Affect: anxious Lab / Micro Data Result Diagrams: 06/28/20 14:12 06/28/20 14:12 Labs: Laboratory Results - last 24 hr 06/28/20 06/28/20 06/28/20 14:09 14:12 14:12 WBC 10.3 RBC 5.04 Hgb 16.4 Hct 48.4 MCV 96.0 H MCH 32.5 H MCHC 33.9 RDW Std Deviation 46.2 H RDW Coeff of Khris 13.0 Plt Count 209 MPV 11.3 Immature Gran % (Auto) 0.200 Neut % (Auto) 66.8 Lymph % (Auto) 23.3 Lewis % (Auto) 6.9 Eos % (Auto) 2.0 Baso % (Auto) 0.8 Absolute Neuts (auto) 6.9 Absolute Lymphs (auto) 2.39 Nucleated RBC % 0 D-Dimer Quant (PE/DVT) Sodium 132 L Potassium 4.1 Chloride 98 Carbon Dioxide 27.0 Anion Gap 7 BUN 28 H Creatinine 1.35 H Estim Creat Clear Calc 58.88 Est GFR (MDRD) Af Amer 68 Est GFR (MDRD) Non-Af 56 L BUN/Creatinine Ratio 20.7 H Glucose 495 H* Calcium 9.2 Troponin I < 0.015 B-Natriuretic Peptide POC Glucose 417 H 06/28/20 06/28/20 14:12 14:12 WBC RBC Hgb Hct MCV MCH MCHC RDW Std Deviation RDW Coeff of Khris Plt Count MPV Immature Gran % (Auto) Neut % (Auto) Lymph % (Auto) Lewis % (Auto) Eos % (Auto) Baso % (Auto) Absolute Neuts (auto) Absolute Lymphs (auto) Nucleated RBC % D-Dimer Quant (PE/DVT) 0.48 Sodium Potassium Chloride Carbon Dioxide Anion Gap BUN Creatinine Estim Creat Clear Calc Est GFR (MDRD) Af Amer Est GFR (MDRD) Non-Af BUN/Creatinine Ratio Glucose Calcium Troponin I B-Natriuretic Peptide 57.7 POC Glucose Radiology Impression Brain CT 06/28/20 14:16 IMPRESSION: Chronic involutional changes of the brain. No definite acute abnormality. Electronically Signed: Kian Acosta MD at 16:10 EDT , Service support , Chest X-Ray 06/28/20 14:16 IMPRESSION: Chronic interstitial changes, no superimposed acute pulmonary process Electronically Signed: Wally Selby MD at 15:00 EDT , Service support , Assessment & Plan Assessment/Plan (1) Altered mental status: (2) Right arm weakness: PLAN: 1. Right arm weakness-began 5 days ago. Rule out CVA. Brain CT shows chronic changes. CTA of head and neck pending. Obtain MRI of brain. Cervical spine MRI. Aspirin, statin. PT/OT. Obtain echocardiogram. 2. Altered mental status-suspect multifactorial due to polypharmacy coupled with underlying untreated sleep disordered breathing. Continue BiPAP as tolerated. Hold sedating regimen. Work-up per #1 to rule out CVA. 3. Shortness of breath-CTA of chest pending. Patient not noted to be hypoxic. Chest x-ray unremarkable. Afebrile. No wheezing on assessment. Albuterol and DuoNeb aerosols. Will follow-up CTA. BiPAP as tolerated, patient has untreated EBONY. 4. Chronic COPD-scheduled and as needed albuterol aerosols. 5. Type 2 diabetes mellitus, poorly [id number] with sliding scale insulin. Check hemoglobin A1c. 6. Chronic pain syndrome-on methadone, gabapentin, cyclobenzaprine. Hold sedating regimen. As needed Tylenol. 7. Tobacco dependence-current half pack per day smoker. Encouraged cessation. 8. Hypertension-continue metoprolol, HCTZ. 9. Hyperlipidemia-not on statin. 10. EBONY-unclear if patient wears CPAP/BiPAP. Followed with pulmonary medicine in 2019, patient was to have sleep study however it does not appear he has followed up since. 11. Chronic kidney disease stage IIIa-at baseline, trend BMP. 12. Depression/anxiety-continue sertraline. DVT prophylaxis-heparin subcu. CODE STATUS: Discussed with at bedside, elects patient to remain full code. This patient was seen by Amberly Capellan NP-C under the supervision of Dr. Bahena. Documented by User: Dr. Margaret Bahena MD 06/28/20 19:39 HPI - General General Date of Admission: 06/28/20 PFSH Medical History (Updated 06/28/20 @ 19:[address] Abdoulaye Moore, DO) Acute respiratory failure with hypoxia and hypercapnia Anxiety Cardiomegaly Chronic kidney disease (CKD) Chronic pain Chronic pain Chronically on opiate therapy COPD (chronic obstructive pulmonary disease) Encephalopathy Essential (primary) hypertension History of sepsis HLD (hyperlipidemia) Kidney stones Nicotine dependence Opiate dependence EBONY and COPD overlap syndrome Pericardial effusion Pleural effusion Type 2 diabetes mellitus Home Medications methadone 10 mg PO 4X/DAY PRN 04/23/16 [History Last Taken 06/28/20 10:30] nitroglycerin 0.4 mg SL PRN PRN 04/23/16 [History Last Taken 09/15/16] cyclobenzaprine 10 mg PO TID PRN #20 tab 03/02/17 [Rx Last Taken 03/03/17 20:00] acetaminophen 500 mg PO Q4H PRN PRN tab 03/08/17 [Rx Last Taken Unknown] gabapentin 600 mg PO TID PRN 07/10/18 [History Last Taken 06/28/20 09:00] insulin regular human 2 - 10 unit SUBCUT TIDCM 07/10/18 [History Last Taken 06/28/20 13:30 13 units] metoprolol tartrate 50 mg PO BID 07/10/18 [History Last Taken 06/26/20] albuterol sulfate 90 mcg/actuation aerosol inhaler 2 puff INHALATION Q4H PRN 16 Days #18 g 07/19/18 [History Last Taken 06/27/20] cholecalciferol (vitamin D3) 1,250 mcg (50,000 unit) capsule 1,250 mcg PO DAILY #12 cap 08/10/18 [History Last Taken 06/28/20] hydrochlorothiazide 25 mg tablet 25 mg PO DAILY #90 tab 08/10/18 [History Last Taken 06/27/20] amitriptyline 50 - 100 mg PO QHS PRN 06/28/20 [History Last Taken Unknown] sertraline 150 mg PO DAILY 06/28/20 [History Last Taken 06/28/20] Allergy/AdvReac Type Severity Reaction Status Date / Time No Known Allergies Allergy Verified 06/28/20 14:10 Family History (Reviewed 06/28/20 @ 17:52 by Amberly Capellan [employer] EMPLOYMENT REPRESENTATIVE, V[employer] EMPL[employer]MENT REPRESENTATIVE-C) Uncle Myocardial infarction Father Diabetes Melanoma Mother Diabetes Surgical History History of back surgery History of cholecystectomy History of tonsillectomy Hx of appendectomy Social History Smoking Status: Current every day smoker Tobacco: How many years used: 20 Lab / Micro Data Result Diagrams: 06/28/20 14:12 06/28/20 14:12 Addendum Addendum: Patient seen by Amberly FRITZ under my supervision Patient is a 64-year-old male with past medical history as outlined was admitted through the ED on 06/28/2020 with a complaint of right upper extremity weakness as well as altered mental status. Patient was quite confused and lethargic during my review so history was mainly taken from his . According to his , patient started having right upper extremity weakness about 5 days ago. Patient said he was concerned about myles Covid in the hospital so he did not want to come in for evaluation. However his symptoms persisted and today his noticed that he was more confused than usual with slowing down of his speech so she convinced him to come into the ED. states she has not noticed that patient has had any slurred speech or blurring of his vision or any facial droop. She has not noticed that he has had any lower extremity weakness or any left upper extremity weakness. He has been evaluated for neck pain in the past. Patient became short of breath in the ED and actually required BiPAP which he was on at the time I reviewed him. Patient does have a history of chronic pain and is on methadone and also has EBONY. Vitals in the ED showed temperature of 97.6 Fahrenheit with pulse rate of 109, respiratory rate of 30 and blood pressure of 136/68. Labs showed hemoglobin of 16.4 with platelets of 2 9 WBC of 10.3 with sodium of 132 and potassium of 4.1. CT of the brain done showed only chronic involutional changes and chest x-ray showed chronic interstitial changes with no superimposed acute cardiopulmonary process O/E; Const Constitutional Narrative: lethargic, unresponsive, moves all limbs spontaneously apart from RUE Orientation / Consciousness: confused, lethargic HEENT normocephalic and moist oral mucous membranes Eyes PERRL, EOMs intact bilaterally and conjunctivae normal Neck no lymphadenopathy Resp clear to auscultation bilaterally Auscultation: diminished lung sounds Cardio regular rate, regular rhythm and no murmurs Peripheral Pulses: pulses 2+ throughout GI normal to inspection, nondistended, normoactive bowel sounds, non-tender and non-distended Extremity normal to inspection Skin no rashes or lesions noted Lesions: no lesions Rashes: no rashes Trauma: no lacerations or abrasions Neuro CN's II-XII intact bilaterally, no sensory deficits noted and deep tendon reflexes 2+ bilaterally Neuro Narrative: Right arm weakness, patient lethargic, not responsive to sternal rub. moves LUE and bilateral LEs spontaneously. Patient is being admitted to be managed for acute metabolic encephalopathy and concerns for stroke. I am concerned that his metabolic encephalopathy may be due to hypercapnia from EBONY; he is also on methadone and so this may play a role. We will get a stat ABG. CTA of his chest was negative for any PE and showed mild cardiomegaly with a moderate pericardial effusion with underexpanded lungs and no pleural effusion. 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 We will get MRI of the brain. Of note, patient's also states that patient has heart failure but he is never seen a piggyback clerk and states he is being managed by his PCP. Will check BNP as well. Admit patient to PCU. Consult pulmonology. Also consult neurology. Get 2D echo and check lipid panel as well as A1c. Start on aspirin and statin. Consult PT OT. Fall precautions. Code status: I did discuss CODE STATUS with his as patient was not able to communicate. I explained differences between full code, DNR CCA and DNR CCA to his . wishes for patient to be full code. Total [id number] time 16 minutes. Rest as per Amberly Capellan V[employer] EMPLOYMENT REPRESENTATIVE-C's note, which I have reviewed and endorsed. Visit Charges Inpatient E&M: 06454 Init Hosp L3 Procedures Hospitalists Procedures: 20084 Advncd Care Plan 30 Min
[2020-06-28] MEDS: MethylPREDNISolone 125 MG/2 ML Vial IV (19:20)
[2020-06-28 19:29] LABS: Amphetamine Urine VISTA NEGATIVE (<1000 ng/mL); Barbiturate Urine VISTA NEGATIVE (< 200 ng/mL); Benzodiazepine Urine VISTA NEGATIVE (< 200 ng/mL); Cocaine Urine VISTA NEGATIVE (< 300 ng/mL); Ecstacy Urine VISTA NEGATIVE (< 500 ng/mL); Methadone Urine VISTA POSITIVE (< 300 ng/mL); PCP Urine VISTA NEGATIVE (< 25 ng/mL); THC Urine VISTA NEGATIVE (< 50 ng/mL); Vista UDS pH Range 6
--- NOTE | 2020-06-28 19:37 | CPS ---
pt moved to pcu on bipap-no issues
[2020-06-28 19:47] LABS: Magnesium 2.1 mg/dL (1.6-2.6)
[2020-06-28 20:11] LABS: Allen Test Positive; Base Excess 0 mmol/L (-2 to +2); Blood Gas Specimen Type ART; FI02 21; Mode BiLevel; O2 Delivery Device BiPAP; PEEP 7; PO2 71 mmHG (75-100); PS 16; RR 12; SITE R Radial; SO2 94 % (95-99); Total Carbon Dioxide 26 mmol/L; pCO2 41.9 mmHg (35-45); pH 7.38 (7.35-7.45)
[2020-06-28 20:18] LABS: Cholesterol 208 mg/dL (200); High Density Lipoprotein 39 mg/dL; Triglycerides 304 mg/dL; Very Low Density Lipoprotein 61 mg/dL (5-40)
[2020-06-28 20:26] LABS: Bedside Glucose 439 mg/dL (70-110)
[2020-06-28] MEDS: Metoprolol Tartrate 5 MG/5 ML Vial IV (22:09)
[2020-06-28] MEDS: Heparin Injection (Vial) 5,000 UNIT/ML VIAL 5000 UNIT SC (22:09)
[2020-06-28] MEDS: Furosemide 40 MG/4 ML Vial IV (22:10)
[2020-06-28] MEDS: Aspirin 300 MG Suppository RC (22:10)
[2020-06-28] MEDS: 0.9% Saline Lock 10 ML Syringe IV (22:32)
[2020-06-28] MEDS: hydrALAZINE 20 MG/ML Vial 5 MG IV (22:32)
[2020-06-28 23:06] LABS: Bedside Glucose 487 mg/dL (70-110)
[2020-06-28] MEDS: Insulin Lispro 100 UNIT/ML INSULN.PEN 20 UNIT SC (23:13)
--- NOTE | 2020-06-28 23:20 | CPS ---
Patient refusing bipap at this time
[2020-06-28] MEDS: Acetaminophen 325 MG Tablet 650 MG PO (23:39)
[2020-06-29] VITALS (8 sets, daily range): BP systolic 163–188; BP diastolic 91–166; PULSE 100–116; RESP 12–25; TEMP 36.3–36.9; O2SAT 96–99; BMI 30.7
--- NOTE | 2020-06-29 01:51 | NURSING ---
Blood sugar 439 around 2014, notified Dr. Bahena. Unable to give pt sliding scale insulin prior to leaving for MRI around 2029. After pt arrived back from MRI, blood sugar was 487. Dr. Pace notified and x1 dose 20 units humalog given. SANDY Larry
--- NOTE | 2020-06-29 01:58 | NURSING ---
Around 06/28, pt became anxious and agitated, wanting to call his and leave because he couldn't eat or drink and because he wanted pain medication. Pt educated on the reason why he was NPO d/t failing his swallow eval earlier d/t his lethargy/drowsiness. Pt asking for his to come in, this RN called Anai and asked her if she wanted to come in to be w/ pt. This RN performed another dysphagia screen and pt passed. Pt agreed to stay if he could eat/drink and have some pain medication. Dr. aPce notified, see new orders for tylenol and cardiac diet. Pt's arrived, food/drinks and Tylenol given to pt, pt reports feeling much better. SANDY Larry.
[2020-06-29] MEDS: Acetaminophen 325 MG Tablet 650 MG PO (04:01)
[2020-06-29] MEDS: LORazepam 0.5 MG Tablet PO (05:32)
[2020-06-29] MEDS: Insulin Lispro 100 UNIT/ML INSULN.PEN 20 UNIT SC ×2 (05:34→07:11)
[2020-06-29 05:46] LABS: Bedside Glucose 488 mg/dL (70-110)
[2020-06-29 07:00] LABS: Bedside Glucose > 500 mg/dL (70-110)
[2020-06-29 07:07] LABS: Absolute Lymphocyte Count 0.85 X10^3/uL (0.83-4.51); Absolute Neutrophil Count 11.3 X10^3/uL (2.0-7.7); Basophil# 0.03 X10^3/uL; Basophil% 0.2 % (0-1); Hematocrit 48.3 % (40-54); Hemoglobin 16.9 g/dL (13.0-16.5); Lymphocyte # 0.85 X10^3/ul (0.83-4.51); Lymphocyte % 6.7 % (19-41); Mean Corpuscular Hgb 32.8 pg (27.0-32.0); Mean Corpuscular Volume 93.6 fL (80-94); Mean Platelet Vol. 11.1 fl (6.2-12.0); Monocyte# 0.58 X10^3/uL; Monocyte% 4.5 % (0-10); NRBC Flagged by Analyzer 0 % (0-5); Neutrophil # 11.26 X10^3/uL (2.7-7.7); Neutrophil % 88.2 % (47-70); Platelet Count 225 K/mm3 (150-450); RBC Distribution Width CV 12.7 % (11.6-14.6); RBC Distribution Width SD 43.8 fl (35.1-43.9); Red Blood Count 5.16 M/mm3 (4.6-6.2); White Blood Count 12.8 K/mm3 (4.4-11.0)
--- NOTE | 2020-06-29 07:24 | EX.PCM.CONCC ---
Assessment & Plan Assessment/Plan (1) Acute respiratory failure: PLAN: RECOMMENDATIONS: IMPRESSIONS: This note was generated with [employer] dictation software. It may contain incorrect words, spelling, and punctuation that were not noted in checking the note before signing. HPI Consult Data Date of Consult: 06/29/20 HPI Narrative Reason for Consultation: Acute respiratory failure HPI Narrative: The patient is a 64-year-old male, with a history as outlined below, who presented to the emergency department on June 28 with shortness of breath, right arm weakness and altered mental state. The patient was seen once in the pulmonary medicine clinic in July 2018 for a hospital follow-up office visit. There was concern at that time for not only COPD but obstructive sleep apnea. Pulmonary function studies and polysomnogram were ordered. However, the patient never followed up. On presentation to the emergency department, the patient was noted to be afebrile and hemodynamically stable. He was, nevertheless tachycardic and tachypneic. Initial laboratory evaluation revealed a normal white blood cell count. D-dimer was within normal limits. Arterial blood gas revealed a pH of 7.38 with a corresponding PCO2 of 41 and PO2 of 71. Chemistry profile was notable for a sodium of 132 and creatinine of 1.35. Glucose was elevated to 495. Troponin was negative. Toxicology screen was positive for methadone. CT head revealed chronic involutional changes of the brain. CTA chest showed no evidence for PE. Mild cardiomegaly and a moderate pericardial effusion was noted. Head/neck CTA was also completed and revealed no occlusion or intraluminal thrombi. High-grade stenosis was noted at the origin of the right ICA. While in the emergency department, the patient was placed on BiPAP therapy due to dyspnea. The patient was subsequently admitted to the progressive care unit for further management. [facility] Medical History (Updated 06/29/20 @ 07:[address] Cornelio Wbeer, DO) Acute respiratory failure with hypoxia and hypercapnia Anxiety Cardiomegaly Chronic kidney disease (CKD) Chronic pain Chronic pain Chronically on opiate therapy COPD (chronic obstructive pulmonary disease) Encephalopathy Essential (primary) hypertension History of sepsis HLD (hyperlipidemia) Kidney stones Nicotine dependence Opiate dependence EBONY and COPD overlap syndrome Pericardial effusion Pleural effusion Type 2 diabetes mellitus Home Medications methadone 10 mg PO 4X/DAY PRN 04/23/16 [History Last Taken 06/28/20 10:30] nitroglycerin 0.4 mg SL PRN PRN 04/23/16 [History Last Taken 09/15/16] cyclobenzaprine 10 mg PO TID PRN #20 tab 03/02/17 [Rx Last Taken 03/03/17 20:00] acetaminophen 500 mg PO Q4H PRN PRN tab 03/08/17 [Rx Last Taken Unknown] gabapentin 600 mg PO TID PRN 07/10/18 [History Last Taken 06/28/20 09:00] insulin regular human 2 - 10 unit SUBCUT TIDCM 07/10/18 [History Last Taken 06/28/20 13:30 13 units] metoprolol tartrate 50 mg PO BID 07/10/18 [History Last Taken 06/26/20] albuterol sulfate 90 mcg/actuation aerosol inhaler 2 puff INHALATION Q4H PRN 16 Days #18 g 07/19/18 [History Last Taken 06/27/20] cholecalciferol (vitamin D3) 1,250 mcg (50,000 unit) capsule 1,250 mcg PO DAILY #12 cap 08/10/18 [History Last Taken 06/28/20] hydrochlorothiazide 25 mg tablet 25 mg PO DAILY #90 tab 08/10/18 [History Last Taken 06/27/20] amitriptyline 50 - 100 mg PO QHS PRN 06/28/20 [History Last Taken Unknown] sertraline 150 mg PO DAILY 06/28/20 [History Last Taken 06/28/20] Allergy/AdvReac Type Severity Reaction Status Date / Time No Known Allergies Allergy Verified 06/28/20 14:10 Family History (Reviewed 06/28/20 @ 17:52 by Amberly Capellan CLINICAL LABORATORY AIDES TEACHER, CLINICAL LABORATORY AIDES TEACHER-C) Uncle Myocardial infarction Father Diabetes Melanoma Mother Diabetes Surgical History History of back surgery History of cholecystectomy History of tonsillectomy Hx of appendectomy Social History Smoking Status: Current every day smoker Tobacco: How many years used: 20 Lab / Micro Data Result Diagrams: 06/29/20 06:55 06/28/20 14:12 Labs: Laboratory Results - last 24 hr 06/28/20 06/28/20 06/28/20 14:09 14:12 14:12 WBC 10.3 RBC 5.04 Hgb 16.4 Hct 48.4 MCV 96.0 H MCH 32.5 H MCHC 33.9 RDW Std Deviation 46.2 H RDW Coeff of Khris 13.0 Plt Count 209 MPV 11.3 Immature Gran % (Auto) 0.200 Neut % (Auto) 66.8 Lymph % (Auto) 23.3 [place] % (Auto) 6.9 Eos % (Auto) 2.0 Baso % (Auto) 0.8 Absolute Neuts (auto) 6.9 Absolute Lymphs (auto) 2.39 Nucleated RBC % 0 D-Dimer Quant (PE/DVT) Sodium 132 L Potassium 4.1 Chloride 98 Carbon Dioxide 27.0 Anion Gap 7 BUN 28 H Creatinine 1.35 H Estim Creat Clear Calc 58.88 Est GFR (MDRD) Af Amer 68 Est GFR (MDRD) Non-Af 56 L BUN/Creatinine Ratio 20.7 H Glucose 495 H* Calcium 9.2 Magnesium Troponin I < 0.015 B-Natriuretic Peptide Triglycerides Cholesterol LDL Cholesterol VLDL Cholesterol HDL Cholesterol Urine Opiates Screen Urine Methadone Screen Ur Barbiturates Screen Ur Phencyclidine Scrn Ur Amphetamines Screen U Methamphetamin-MDMA U Benzodiazepines Scrn Urine Cocaine Screen U Cannabinoids Screen Ur Drug Screen Comment POC Glucose 417 H 06/28/20 06/28/20 06/28/20 14:12 14:12 14:12 WBC RBC Hgb Hct MCV MCH MCHC RDW Std Deviation RDW Coeff of Khris Plt Count MPV Immature Gran % (Auto) Neut % (Auto) Lymph % (Auto) [place] % (Auto) Eos % (Auto) Baso % (Auto) Absolute Neuts (auto) Absolute Lymphs (auto) Nucleated RBC % D-Dimer Quant (PE/DVT) 0.48 Sodium Potassium Chloride Carbon Dioxide Anion Gap BUN Creatinine Estim Creat Clear Calc Est GFR (MDRD) Af Amer Est GFR (MDRD) Non-Af BUN/Creatinine Ratio Glucose Calcium Magnesium 2.1 Troponin I B-Natriuretic Peptide 57.7 Triglycerides Cholesterol LDL Cholesterol VLDL Cholesterol HDL Cholesterol Urine Opiates Screen Urine Methadone Screen Ur Barbiturates Screen Ur Phencyclidine Scrn Ur Amphetamines Screen U Methamphetamin-MDMA U Benzodiazepines Scrn Urine Cocaine Screen U Cannabinoids Screen Ur Drug Screen Comment POC Glucose 06/28/20 06/28/20 06/28/20 14:12 18:30 20:16 WBC RBC Hgb Hct MCV MCH MCHC RDW Std Deviation RDW Coeff of Khris Plt Count MPV Immature Gran % (Auto) Neut % (Auto) Lymph % (Auto) [place] % (Auto) Eos % (Auto) Baso % (Auto) Absolute Neuts (auto) Absolute Lymphs (auto) Nucleated RBC % D-Dimer Quant (PE/DVT) Sodium Potassium Chloride Carbon Dioxide Anion Gap BUN Creatinine Estim Creat Clear Calc Est GFR (MDRD) Af Amer Est GFR (MDRD) Non-Af BUN/Creatinine Ratio Glucose Calcium Magnesium Troponin I B-Natriuretic Peptide Triglycerides 304 H Cholesterol 208 H LDL Cholesterol 108 VLDL Cholesterol 61 H HDL Cholesterol 39 L Urine Opiates Screen NEGATIVE Urine Methadone Screen POSITIVE H Ur Barbiturates Screen NEGATIVE Ur Phencyclidine Scrn NEGATIVE Ur Amphetamines Screen NEGATIVE U Methamphetamin-MDMA NEGATIVE U Benzodiazepines Scrn NEGATIVE Urine Cocaine Screen NEGATIVE U Cannabinoids Screen NEGATIVE Ur Drug Screen Comment POC Glucose 439 H 06/28/20 06/29/20 06/29/20 22:24 05:14 06:39 WBC RBC Hgb Hct MCV MCH MCHC RDW Std Deviation RDW Coeff of Khris Plt Count MPV Immature Gran % (Auto) Neut % (Auto) Lymph % (Auto) [place] % (Auto) Eos % (Auto) Baso % (Auto) Absolute Neuts (auto) Absolute Lymphs (auto) Nucleated RBC % D-Dimer Quant (PE/DVT) Sodium Potassium Chloride Carbon Dioxide Anion Gap BUN Creatinine Estim Creat Clear Calc Est GFR (MDRD) Af Amer Est GFR (MDRD) Non-Af BUN/Creatinine Ratio Glucose Calcium Magnesium Troponin I B-Natriuretic Peptide Triglycerides Cholesterol LDL Cholesterol VLDL Cholesterol HDL Cholesterol Urine Opiates Screen Urine Methadone Screen Ur Barbiturates Screen Ur Phencyclidine Scrn Ur Amphetamines Screen U Methamphetamin-MDMA U Benzodiazepines Scrn Urine Cocaine Screen U Cannabinoids Screen Ur Drug Screen Comment POC Glucose 487 H* 488 H* > 500 H* 06/29/20 06:55 WBC 12.8 H RBC 5.16 Hgb 16.9 H Hct 48.3 MCV 93.6 MCH 32.8 H MCHC 35.0 RDW Std Deviation 43.8 RDW Coeff of Khris 12.7 Plt Count 225 MPV 11.1 Immature Gran % (Auto) 0.400 Neut % (Auto) 88.2 H Lymph % (Auto) 6.7 L [place] % (Auto) 4.5 Eos % (Auto) 0.0 Baso % (Auto) 0.2 Absolute Neuts (auto) 11.3 H Absolute Lymphs (auto) 0.85 Nucleated RBC % 0 D-Dimer Quant (PE/DVT) Sodium Potassium Chloride Carbon Dioxide Anion Gap BUN Creatinine Estim Creat Clear Calc Est GFR (MDRD) Af Amer Est GFR (MDRD) Non-Af BUN/Creatinine Ratio Glucose Calcium Magnesium Troponin I B-Natriuretic Peptide Triglycerides Cholesterol LDL Cholesterol VLDL Cholesterol HDL Cholesterol Urine Opiates Screen Urine Methadone Screen Ur Barbiturates Screen Ur Phencyclidine Scrn Ur Amphetamines Screen U Methamphetamin-MDMA U Benzodiazepines Scrn Urine Cocaine Screen U Cannabinoids Screen Ur Drug Screen Comment POC Glucose ABG Data ABG results: ABG 06/28/20 20:05 Specimen Type ART Sample Site R Radial pH 7.38 Bicarbonate Actual 25.0 Total CO2 26 Base Excess 0 O2 Saturation 94 L O2 % 21 ABG pCO2 41.9 ABG pO2 71 L Bradley Test Positive Respiration Rate 12 O2 Delivery Device BiPAP Vent Mode BiLevel POC PEEP 7 POC Pressure Suppt 16 Clinical Comments 16 7 12 [address] 06/28/20 14:16 IMPRESSION: Chronic involutional changes of the brain. No definite acute abnormality. Electronically Signed: Kian Acosta MD at 16:10 EDT , Service support , Chest X-Ray 06/28/20 14:16 IMPRESSION: Chronic interstitial changes, no superimposed acute pulmonary process Electronically Signed: Wally Selby MD at 15:00 EDT , Service support , Chest CTA 06/28/20 17:21 IMPRESSION: Normal CTA chest examination, without a demonstrated pulmonary embolism or arterial dissection. Pericardial effusion. Low lung volumes. Atelectasis or scarring in both posterior lung bases. Electronically Signed: Kian Acosta MD at 18:55 EDT , Service support , Head/Neck CTA 06/28/20 17:21 IMPRESSION: No occlusion. No intraluminal thrombi. High-grade stenosis of the origin of the right ICA. Low-grade plaque and stenoses elsewhere as above. Electronically Signed: Kian Aocsta MD at 18:48 EDT , Service support ,
--- NOTE | 2020-06-29 07:53 | DS.PCM_ITS ---
Providers Date of Admission: 06/28/20 Primary Care Physician: Dr. Luis Starr, Consultations 06/28/20 19:52 Consult: Shaper Setter / Pulmonary Medicine Routine Consulting Provider: Pulmonary Medicine suma Dupont Reason for Consult: acute hypoxic respiratory failure EMERGENT Consult: No MD Notified: Yes Date Notified:: 06/28/20 Time Notified: 19:53 Method of Notification: Text Reason For Visit: ALTERED MENTAL STATUS, RIGHT ARM WEAKNESS Diagnosis Discharge Diagnosis (1) Acute respiratory failure: Status: Acute Code(s): J96.00 - Acute respiratory failure, unspecified whether with hypoxia or hypercapnia Medications at Discharge Home Medications methadone 10 mg PO 4X/DAY PRN 04/23/16 nitroglycerin 0.4 mg SL PRN PRN 04/23/16 cyclobenzaprine 10 mg PO TID PRN #20 tab 03/02/17 acetaminophen 500 mg PO Q4H PRN PRN tab 03/08/17 gabapentin 600 mg PO TID PRN 07/10/18 insulin regular human 2 - 10 unit SUBCUT TIDCM 07/10/18 metoprolol tartrate 50 mg PO BID 07/10/18 albuterol sulfate 90 mcg/actuation aerosol inhaler 2 puff INHALATION Q4H PRN 16 Days #18 g 07/19/18 cholecalciferol (vitamin D3) 1,250 mcg (50,000 unit) capsule 1,250 mcg PO DAILY #12 cap 08/10/18 hydrochlorothiazide 25 mg tablet 25 mg PO DAILY #90 tab 08/10/18 amitriptyline 50 - 100 mg PO QHS PRN 06/28/20 sertraline 150 mg PO DAILY 06/28/20 Hospital Course Summary of Care Provided Hospital Course: Patient was seen and examined in the presence of nursing staff and . He has right upper extremity for last 4 days and was admitted along with confusion. Patient also has history of cervical stenosis and lumbar pain for last 30 years and had surgery in the lumbar spine region. He follows Dr. Rob probably for pain medication and his anesthesiologist. He also history of CHF with significant orthopnea and cannot lay flat for MRI. His PCP manages his cardiac medications. He states he has follow-up with Dr. Rob on Thursday Preliminary evaluation of CT brain, chest x-ray and chest CTA shows chronic features but not acute pathology. CT chest shows low lung volumes, atelectasis or scarring more posterior lung bases. CT abdomen shows extensive atherosclerotic plaque formation at the origin of right ICA, greater than 70%. Moderate atherosclerotic plaque with moderate narrowing of the right carotid bulb. Mild atherosclerotic plaque formation at origin of left ICA with less th an 50% stenosis. No occlusion/intraluminal thrombi. I discussed in detail with patient and regarding necessity of MRI brain and will add MRI C-spine to see the possibility of cervical cord myelopathy for right upper extremity weakness which I suspect its course. With monoplegia no other symptoms, I think less likely central cause likely stroke but he still needs to be ruled out. Patient understands that but he still wants to sign AMA. Please see H&P for detail. Total time of the visit including total time spent in counseling or coordination of care, (more than 50% of the total time, spent in obtaining medical information from nurses and other ancillary care providers,explaining to the patient about labs, imaging, diagnosis and management), discussion with patient's , review of labs and imaging is 30 minutes. Clinical Impression(s) from Imaging Studies Brain CT 06/28/20 14:16 IMPRESSION: Chronic involutional changes of the brain. No definite acute abnormality. Chest X-Ray 06/28/20 14:16 IMPRESSION: Chronic interstitial changes, no superimposed acute pulmonary process Chest CTA 06/28/20 17:21 IMPRESSION: Normal CTA chest examination, without a demonstrated pulmonary embolism or arterial dissection. Pericardial effusion. Low lung volumes. Atelectasis or scarring in both posterior lung bases. Head/Neck CTA 06/28/20 17:21 IMPRESSION: No occlusion. No intraluminal thrombi. High-grade stenosis of the origin of the right ICA. Low-grade plaque and stenoses elsewhere as above. Physical Exam Narrative Seen and examined. Patient is adamant leaving the hospital. He certainly cannot have MRI as he cannot lay back supine for history of CHF, orthopnea and leuk trase is weaned need placement. General: Alert, Oriented x3, Cooperative HEENT: Atraumatic, PERRLA, EOMI, Normocephalic. On visual confrontation test, no obvious loss of peripheral vision. Oral: No Gingival or Mucosal Lesions/ Ulcerations Neck: Supple, No JVD, Negative Carotid Bruits. Lungs: Air entry diminished in bilateral lung bases. No crepitations/rhonchi. Cardiovascular: Regular rate, Regular Rhythm, Normal S1, Normal S2, systolic murmur LLSB. Abdomen: Bowel Sounds Present, Soft, Non Tender, Non-Distended : No renal angle tenderness. No suprapubic tenderness. Extremities: Mild ankle bilateral edema, Capillary Refill Less than 3 Seconds. Venous stasis changes in lower legs Skin: No rashes, No breakdown Musculoskeletal/spine: Chronic tenderness lower cervical spine C7-T1, surgical scar over right shoulder region. Neurological: Cranial nerves II-XII grossly intact, Deep Tendon Reflexes 2+/4. Weakness of right upper extremity at shoulder elbow joints. Psych/Mental Status: Normal Affect, Appropriate. ABG / Lab / Microbiology Data Result Diagrams: 06/29/20 06:55 06/29/20 06:55 Laboratory: Laboratory Results - last 24 hr 06/28/20 06/28/20 06/28/20 14:09 14:12 14:12 WBC 10.3 RBC 5.04 Hgb 16.4 Hct 48.4 MCV 96.0 H MCH 32.5 H MCHC 33.9 RDW Std Deviation 46.2 H RDW Coeff of Khris 13.0 Plt Count 209 MPV 11.3 Immature Gran % (Auto) 0.200 Neut % (Auto) 66.8 Lymph % (Auto) 23.3 [place] % (Auto) 6.9 Eos % (Auto) 2.0 Baso % (Auto) 0.8 Absolute Neuts (auto) 6.9 Absolute Lymphs (auto) 2.39 Nucleated RBC % 0 D-Dimer Quant (PE/DVT) Sodium 132 L Potassium 4.1 Chloride 98 Carbon Dioxide 27.0 Anion Gap 7 BUN 28 H Creatinine 1.35 H Estim Creat Clear Calc 58.88 Est GFR (MDRD) Af Amer 68 Est GFR (MDRD) Non-Af 56 L BUN/Creatinine Ratio 20.7 H Glucose 495 H* Calcium 9.2 Magnesium Troponin I < 0.015 B-Natriuretic Peptide Triglycerides Cholesterol LDL Cholesterol VLDL Cholesterol HDL Cholesterol Urine Opiates Screen Urine Methadone Screen Ur Barbiturates Screen Ur Phencyclidine Scrn Ur Amphetamines Screen U Methamphetamin-MDMA U Benzodiazepines Scrn Urine Cocaine Screen U Cannabinoids Screen Ur Drug Screen Comment POC Glucose 417 H 06/28/20 06/28/20 06/28/20 14:12 14:12 14:12 WBC RBC Hgb Hct MCV MCH MCHC RDW Std Deviation RDW Coeff of Khris Plt Count MPV Immature Gran % (Auto) Neut % (Auto) Lymph % (Auto) [place] % (Auto) Eos % (Auto) Baso % (Auto) Absolute Neuts (auto) Absolute Lymphs (auto) Nucleated RBC % D-Dimer Quant (PE/DVT) 0.48 Sodium Potassium Chloride Carbon Dioxide Anion Gap BUN Creatinine Estim Creat Clear Calc Est GFR (MDRD) Af Amer Est GFR (MDRD) Non-Af BUN/Creatinine Ratio Glucose Calcium Magnesium 2.1 Troponin I B-Natriuretic Peptide 57.7 Triglycerides Cholesterol LDL Cholesterol VLDL Cholesterol HDL Cholesterol Urine Opiates Screen Urine Methadone Screen Ur Barbiturates Screen Ur Phencyclidine Scrn Ur Amphetamines Screen U Methamphetamin-MDMA U Benzodiazepines Scrn Urine Cocaine Screen U Cannabinoids Screen Ur Drug Screen Comment POC Glucose 06/28/20 06/28/20 06/28/20 14:12 18:30 20:16 WBC RBC Hgb Hct MCV MCH MCHC RDW Std Deviation RDW Coeff of Khris Plt Count MPV Immature Gran % (Auto) Neut % (Auto) Lymph % (Auto) [place] % (Auto) Eos % (Auto) Baso % (Auto) Absolute Neuts (auto) Absolute Lymphs (auto) Nucleated RBC % D-Dimer Quant (PE/DVT) Sodium Potassium Chloride Carbon Dioxide Anion Gap BUN Creatinine Estim Creat Clear Calc Est GFR (MDRD) Af Amer Est GFR (MDRD) Non-Af BUN/Creatinine Ratio Glucose Calcium Magnesium Troponin I B-Natriuretic Peptide Triglycerides 304 H Cholesterol 208 H LDL Cholesterol 108 VLDL Cholesterol 61 H HDL Cholesterol 39 L Urine Opiates Screen NEGATIVE Urine Methadone Screen POSITIVE H Ur Barbiturates Screen NEGATIVE Ur Phencyclidine Scrn NEGATIVE Ur Amphetamines Screen NEGATIVE U Methamphetamin-MDMA NEGATIVE U Benzodiazepines Scrn NEGATIVE Urine Cocaine Screen NEGATIVE U Cannabinoids Screen NEGATIVE Ur Drug Screen Comment POC Glucose 439 H 06/28/20 06/29/20 06/29/20 22:24 05:14 06:39 WBC RBC Hgb Hct MCV MCH MCHC RDW Std Deviation RDW Coeff of Khris Plt Count MPV Immature Gran % (Auto) Neut % (Auto) Lymph % (Auto) [place] % (Auto) Eos % (Auto) Baso % (Auto) Absolute Neuts (auto) Absolute Lymphs (auto) Nucleated RBC % D-Dimer Quant (PE/DVT) Sodium Potassium Chloride Carbon Dioxide Anion Gap BUN Creatinine Estim Creat Clear Calc Est GFR (MDRD) Af Amer Est GFR (MDRD) Non-Af BUN/Creatinine Ratio Glucose Calcium Magnesium Troponin I B-Natriuretic Peptide Triglycerides Cholesterol LDL Cholesterol VLDL Cholesterol HDL Cholesterol Urine Opiates Screen Urine Methadone Screen Ur Barbiturates Screen Ur Phencyclidine Scrn Ur Amphetamines Screen U Methamphetamin-MDMA U Benzodiazepines Scrn Urine Cocaine Screen U Cannabinoids Screen Ur Drug Screen Comment POC Glucose 487 H* 488 H* > 500 H* 06/29/20 06:55 WBC 12.8 H RBC 5.16 Hgb 16.9 H Hct 48.3 MCV 93.6 MCH 32.8 H MCHC 35.0 RDW Std Deviation 43.8 RDW Coeff of Khris 12.7 Plt Count 225 MPV 11.1 Immature Gran % (Auto) 0.400 Neut % (Auto) 88.2 H Lymph % (Auto) 6.7 L [place] % (Auto) 4.5 Eos % (Auto) 0.0 Baso % (Auto) 0.2 Absolute Neuts (auto) 11.3 H Absolute Lymphs (auto) 0.85 Nucleated RBC % 0 D-Dimer Quant (PE/DVT) Sodium Potassium Chloride Carbon Dioxide Anion Gap BUN Creatinine Estim Creat Clear Calc Est GFR (MDRD) Af Amer Est GFR (MDRD) Non-Af BUN/Creatinine Ratio Glucose Calcium Magnesium Troponin I B-Natriuretic Peptide Triglycerides Cholesterol LDL Cholesterol VLDL Cholesterol HDL Cholesterol Urine Opiates Screen Urine Methadone Screen Ur Barbiturates Screen Ur Phencyclidine Scrn Ur Amphetamines Screen U Methamphetamin-MDMA U Benzodiazepines Scrn Urine Cocaine Screen U Cannabinoids Screen Ur Drug Screen Comment POC Glucose ABG: ABG 06/28/20 20:05 Specimen Type ART Sample Site R Radial pH 7.38 Bicarbonate Actual 25.0 Total CO2 26 Base Excess 0 O2 Saturation 94 L O2 % 21 ABG pCO2 41.9 ABG pO2 71 L Bradley Test Positive Respiration Rate 12 O2 Delivery Device BiPAP Vent Mode BiLevel POC PEEP 7 POC Pressure Suppt 16 Clinical Comments 16 7 12 21 Radiography Diagnostic Testing: Radiology Impression Brain CT 06/28/20 14:16 IMPRESSION: Chronic involutional changes of the brain. No definite acute abnormality. Electronically Signed: Kian Acosta MD at 16:10 EDT , Service support , Chest X-Ray 06/28/20 14:16 IMPRESSION: Chronic interstitial changes, no superimposed acute pulmonary process Electronically Signed: Wally Selby MD at 15:00 EDT , Service support , Chest CTA 06/28/20 17:21 IMPRESSION: Normal CTA chest examination, without a demonstrated pulmonary embolism or arterial dissection. Pericardial effusion. Low lung volumes. Atelectasis or scarring in both posterior lung bases. Electronically Signed: Kian Acosta MD at 18:55 EDT , Service support , Head/Neck CTA 06/28/20 17:21 IMPRESSION: No occlusion. No intraluminal thrombi. High-grade stenosis of the origin of the right ICA. Low-grade plaque and stenoses elsewhere as above. Electronically Signed: Kian Acosta MD at 18:48 EDT , Service support , Meaningful Use Info Meaningful Use Diagnoses (Choose all that apply): None applicable Discharge Plan Admission Admit Date/Time: 06/28/20 18:18 Attending Provider: Miles Merchant Primary Care Provider: Luis Starr Consulting Providers: Gopal Berumen ; Cornelio Weber ; Ekaterina Manley ENVIRONMENTAL SERVICES PROJECT MANAGER Instructions Additional Instructions / Restrictions: Patient Problems: Altered Health Status related to Hospitalization Patient Goals: *Optimal Level of Health *Keep Appointments *Medication Compliance *Remain Safe Discharge Orders/Prescriptions Prescriptions: No Action albuterol sulfate 90 mcg/actuation HFA aerosol inhaler 2 puff INHALATION Q4H PRN (Reason: sob) 16 Days Qty: 18 RF: 0 hydrochlorothiazide 25 mg tablet 25 mg PO DAILY Qty: 90 RF: 0 cholecalciferol (vitamin D3) 50,000 unit capsule 1,250 mcg PO DAILY Qty: 12 RF: 0 nitroglycerin 0.4 MG tablet, sublingual 0.4 mg SL PRN PRN (Reason: pain) RF: 0 methadone 10 MG tablet 10 mg PO 4X/DAY PRN (Reason: Pain) RF: 0 cyclobenzaprine 10 MG tablet 10 mg PO TID PRN (Reason: Muscle Spasm) Qty: 20 RF: 0 acetaminophen 325 MG tablet 500 mg PO Q4H PRN PRN (Reason: FEVER) RF: 0 metoprolol tartrate 50 MG tablet 50 mg PO BID RF: 0 insulin regular human 100 UNIT/ML solution 2 - 10 unit subcut TIDCM RF: 0 gabapentin 300 capsule 600 mg PO TID PRN (Reason: Pain) RF: 0 sertraline 100 mg tablet 150 mg PO DAILY RF: 0 amitriptyline 50 mg tablet 50 - 100 mg PO QHS PRN (Reason: Sleep) RF: 0 Referrals / Follow Up: Luis Starr DO [Primary Care Provider] - Disposition Discharge Orders: Discharge Patient (Routine); Ordered 06/29/20 Ordered By: Dr. Miles Merchant Visit Charges Inpatient E&M: [id number] Disch Hosp
--- NOTE | 2020-06-29 07:58 | NURSING ---
Pt got his clothes on and took off his tele saying he was ready to go. Dr. Merchant notified of pt's wishes to leave AMA. Dr. Merchant to bedside, discussed treatment options extensively w/ pt and his . Vital signs obtained, current elevated BP discussed w/ Dr. Merchant, pt, and his . Pt elected to leave AMA, form signed and copy given to pt. Pt assisted into wheelchair and taken downstairs w/ belongings and . SANDY Larry.
[2020-06-29 08:21] LABS: Anion Gap 13 (5-15); BUN 28 mg/dL (7-18); BUN/Creat Ratio 20.9 RATIO (10-20); Calcium,Total 9.3 mg/dL (8.5-10.1); Chloride 95 mmol/L (98-107); Cholesterol 208 mg/dL (200); Creatinine, Serum 1.34 mg/dL (0.70-1.30); EST Glomerular Filtration Rate 57 mL/min (>60); Est Glom Filt Rate - Afr Amer 69 mL/min (>60); Estimated Creatinine Clearance 59.32 ml/min; Glucose 557 mg/dL (74-106); High Density Lipoprotein 48 mg/dL; Sodium Level 131 mmol/L (136-145); Thyroid Stim Hormone (TSH) 0.38 uIU/mL (0.358-3.74); Triglycerides 159 mg/dL; Very Low Density Lipoprotein 32 mg/dL (5-40)
[2020-06-29 09:02] LABS: Hemoglobin A1c 11.2 % (3.8-5.6)
== END 2020-06-29 08:04 | disposition left against medical advice (07) ==
LOC: ED 19:06 → PCU 19:44
PROVIDERS: Nurse Practitioner Family; Admitting Provider Student in an Organized Health Care Education/Training Program; Emergency Provider Emergency Medicine; PCP Student in an Organized Health Care Education/Training Program; Visit Provider Internal Medicine
DX: J96.01 Acute respiratory failure with hypoxia (principal); R41.82 Altered mental status, unspecified; R53.1 Weakness; I50.9 Heart failure, unspecified; J44.9 Chronic obstructive pulmonary disease, unspecified; I13.0 Hypertensive heart and chronic kidney disease with heart failure and stage 1 through stage 4 chronic kidney disease, or unspecified chronic kidney disease; E11.22 Type 2 diabetes mellitus with diabetic chronic kidney disease; E78.5 Hyperlipidemia, unspecified; J96.02 Acute respiratory failure with hypercapnia; G47.33 Obstructive sleep apnea (adult) (pediatric); G89.4 Chronic pain syndrome; F17.200 Nicotine dependence, unspecified, uncomplicated; F41.9 Anxiety disorder, unspecified; F32.9 Major depressive disorder, single episode, unspecified; N18.31 Chronic kidney disease, stage 3a; Z79.4 Long term (current) use of insulin; Z79.891 Long term (current) use of opiate analgesic; Z79.899 Other long term (current) drug therapy
CPT/HCPCS: 36415; 36600; 70450; 70496; 70498; 71045; 71275; 80048; 80061; 80307; 82803; 82962; 83036; 83735; 83880; 84443; 84484; 85025; 85379; 93005; 94002; 94003; 94640; 94762; 99251; 99285; J7030; Q9957; Q9967; A4216; G0463; J1940

== ENCOUNTER 2020-06-30 13:35 | Inpatient (IN) | payer MEDICAID, SELFPAY ==
[2020-06-29 03:52] VITALS: BMI 30.7
[2020-06-30] VITALS (7 sets, daily range): BP systolic 104–137; BP diastolic 50–72; PULSE 88–112; RESP 12–36; TEMP 36.4–36.6; O2SAT 92–99; BMI 31.1; BMI 30.6
--- NOTE | 2020-06-30 14:20 | EKG12_ITS ---
Test Reason : Blood Pressure : / mmHG Vent. Rate : 104 BPM Atrial Rate : 104 BPM P-R Int : 140 ms QRS Dur : 096 ms QT Int : 382 ms P-R-T Axes : 020 -43 033 degrees QTc Int : 502 ms Sinus tachycardia Left axis deviation Abnormal ECG Confirmed by STAR MARTI, YINA ([id number]), production editor ANNA MOISE ([id number]) on 07/03/2020 9:38:18 AM Referred By: Confirmed By:YINA GRAVES MD
[2020-06-30 14:39] LABS: Absolute Lymphocyte Count 2.78 X10^3/uL (0.83-4.51); Absolute Neutrophil Count 7.4 X10^3/uL (2.0-7.7); Basophil# 0.09 X10^3/uL; Basophil% 0.7 % (0-1); Eosinophil# 0.25 X10^3/uL; Eosinophils% 2.1 % (0-5); Hematocrit 44.8 % (40-54); Hemoglobin 15.2 g/dL (13.0-16.5); Lymphocyte # 2.78 X10^3/ul (0.83-4.51); Lymphocyte % 23.1 % (19-41); Mean Corp Hgb Conc 33.9 g/dL (32-36); Mean Corpuscular Hgb 32.6 pg (27.0-32.0); Mean Corpuscular Volume 96.1 fL (80-94); Mean Platelet Vol. 11.3 fl (6.2-12.0); Monocyte# 1.43 X10^3/uL; Monocyte% 11.9 % (0-10); NRBC Flagged by Analyzer 0 % (0-5); Neutrophil # 7.41 X10^3/uL (2.7-7.7); Neutrophil % 61.7 % (47-70); Platelet Count 220 K/mm3 (150-450); RBC Distribution Width SD 46.3 fl (35.1-43.9); Red Blood Count 4.66 M/mm3 (4.6-6.2)
[2020-06-30 15:08] LABS: Anion Gap 9 (5-15); BUN 39 mg/dL (7-18); BUN/Creat Ratio 29.8 RATIO (10-20); Calcium,Total 9.1 mg/dL (8.5-10.1); Chloride 99 mmol/L (98-107); Creatinine, Serum 1.31 mg/dL (0.70-1.30); EST Glomerular Filtration Rate 58 mL/min (>60); Est Glom Filt Rate - Afr Amer 71 mL/min (>60); Estimated Creatinine Clearance 60.67 ml/min; Glucose 265 mg/dL (74-106); Potassium 3.5 mmol/L (3.5-5.1); Sodium Level 134 mmol/L (136-145)
--- NOTE | 2020-06-30 15:38 | EDS_ITS ---
HPI History of Present Illness Chief Complaint: Weakness Narrative Narrative: 64-year-old male presenting with right upper extremity weakness. He states this started 4 days ago. He was admitted to the hospital on June 28. He left AGAINST MEDICAL ADVICE on June 29. He states he was very anxious and unable to tolerate the MRI due to his anxiety. He states he now would like to complete this test. He states he is still unable to move his right arm. He complains of pain from his right side of his neck down his arm. He denies chest pain. Denies shortness of breath. Denies other complaints. Prior similar symptoms: Yes Recent Illness/Hospitalization: Yes [facility] Medical History (Updated 06/30/20 @ 15:[address] Sierra Nicole MD) Acute respiratory failure with hypoxia and hypercapnia Anxiety Cardiomegaly Chronic kidney disease (CKD) Chronic pain Chronic pain Chronically on opiate therapy COPD (chronic obstructive pulmonary disease) Encephalopathy Essential (primary) hypertension History of sepsis HLD (hyperlipidemia) Kidney stones Nicotine dependence Opiate dependence EBONY and COPD overlap syndrome Pericardial effusion Pleural effusion Type 2 diabetes mellitus Home Medications methadone 10 mg PO 4X/DAY PRN 04/23/16 [History Last Taken 06/28/20 10:30] nitroglycerin 0.4 mg SL PRN PRN 04/23/16 [History Last Taken 09/15/16] cyclobenzaprine 10 mg PO TID PRN #20 tab 03/02/17 [Rx Last Taken 03/03/17 20:00] acetaminophen 500 mg PO Q4H PRN PRN tab 03/08/17 [Rx Last Taken Unknown] gabapentin 600 mg PO TID PRN 07/10/18 [History Last Taken 06/28/20 09:00] insulin regular human 2 - 10 unit SUBCUT TIDCM 07/10/18 [History Last Taken 06/28/20 13:30 13 units] metoprolol tartrate 50 mg PO BID 07/10/18 [History Last Taken 06/26/20] albuterol sulfate 90 mcg/actuation aerosol inhaler 2 puff INHALATION Q4H PRN 16 Days #18 g 07/19/18 [History Last Taken 06/27/20] cholecalciferol (vitamin D3) 1,250 mcg (50,000 unit) capsule 1,250 mcg PO DAILY #12 cap 08/10/18 [History Last Taken 06/28/20] hydrochlorothiazide 25 mg tablet 25 mg PO DAILY #90 tab 08/10/18 [History Last Taken 06/27/20] amitriptyline 50 - 100 mg PO QHS PRN 06/28/20 [History Last Taken Unknown] sertraline 150 mg PO DAILY 06/28/20 [History Last Taken 06/28/20] Allergy/AdvReac Type Severity Reaction Status Date / Time No Known Allergies Allergy Verified 06/30/20 13:42 Family History Uncle Myocardial infarction Father Diabetes Melanoma Mother Diabetes Surgical History History of back surgery History of cholecystectomy History of tonsillectomy Hx of appendectomy Social History Smoking Status: Current every day smoker Tobacco: How many years used: 20 ROS ROS ED Constitutional Constitutional ED: Denies fever(s) Eyes Eyes: Denies change in vision ENT ENT ED: Denies rhinorrhea or sore throat Cardiovascular Cardiovascular: Denies chest pain or palpitations Respiratory/Chest Respiratory/Chest: Denies cough or dyspnea Gastrointestinal Gastrointestinal: Denies abdominal pain, diarrhea, nausea or vomiting Genitourinary Genitourinary ED: Denies dysuria Musculoskeletal Musculoskeletal: Denies myalgias Integumentary Denies rash Neurologic Neurologic: Reports weakness; Denies headache(s) Psychiatric Psychiatric: Denies suicidal thoughts EXAM Physical Exam Const Vital Signs: 06/30/20 13:39 06/30/20 13:44 06/30/20 14:30 Temperature 97.7 F L Temperature Source Oral Pulse Rate 112 H 103 H Respiratory Rate 16 16 Respiratory Effort Normal Blood Pressure 104/63 137/72 H Blood Pressure Mean 76 93 Pulse Ox 95 92 Oxygen Delivery Method Room Air Room Air 06/30/20 15:32 Temperature Temperature Source Pulse Rate 101 H Respiratory Rate 16 Respiratory Effort Blood Pressure 126/72 H Blood Pressure Mean 90 Pulse Ox 92 Oxygen Delivery Method Room Air Positive well nourished and well developed General Appearance ED: well developed HEENT Reports normocephalic and head/scalp atraumatic Eyes PERRL and EOMs intact bilaterally Neck supple Neck Narrative: Right paraspinal muscle tenderness, no midline tenderness General: Negative for tenderness Chest Wall inspection of chest normal Resp normal respiratory effort and clear to auscultation bilaterally Cardio regular rate and regular rhythm GI non-tender and non-distended Palpation: soft no CVA tenderness Extremity normal to inspection Neuro oriented x3 Sensorium / Orientation: alert and other Right upper extremity weakness. He is unable to hold his right upper extremity against gravity. Remainder of neuro exam is normal. Psych mental status grossly normal MDM MDM MDM Narrative Medical decision making narrative: Patient states he was too anxious to have MRI performed yesterday and left AGAINST MEDICAL ADVICE. He states he now wants to have MRI performed and is agreeable to admission. Discussed with hospitalist for admission. Lab Data Attestation: I reviewed the patient's lab results. Labs: Laboratory Results - last 24 hr 06/30/20 06/30/20 14:30 14:30 WBC 12.0 H RBC 4.66 Hgb 15.2 Hct 44.8 MCV 96.1 H MCH 32.6 H MCHC 33.9 RDW Std Deviation 46.3 H RDW Coeff of Khris 13.0 Plt Count 220 MPV 11.3 Immature Gran % (Auto) 0.500 Neut % (Auto) 61.7 Lymph % (Auto) 23.1 Delta % (Auto) 11.9 H Eos % (Auto) 2.1 Baso % (Auto) 0.7 Absolute Neuts (auto) 7.4 Absolute Lymphs (auto) 2.78 Nucleated RBC % 0 Sodium 134 L Potassium 3.5 Chloride 99 Carbon Dioxide 26.0 Anion Gap 9 BUN 39 H Creatinine 1.31 H Estim Creat Clear Calc 60.67 Est GFR (MDRD) Af Amer 71 Est GFR (MDRD) Non-Af 58 L BUN/Creatinine Ratio 29.8 H Glucose 265 H Calcium 9.1 Discharge Plan Triage Chief Complaint: Weakness ED Provider: Sierra Nicole Dx/Rx/DC Orders Clinical Impression: RUE weakness Prescriptions: No Action albuterol sulfate 90 mcg/actuation HFA aerosol inhaler 2 puff INHALATION Q4H PRN (Reason: sob) 16 Days Qty: 18 RF: 0 hydrochlorothiazide 25 mg tablet 25 mg PO DAILY Qty: 90 RF: 0 cholecalciferol (vitamin D3) 50,000 unit capsule 1,250 mcg PO DAILY Qty: 12 RF: 0 nitroglycerin 0.4 MG tablet, sublingual 0.4 mg SL PRN PRN (Reason: pain) RF: 0 methadone 10 MG tablet 10 mg PO 4X/DAY PRN (Reason: Pain) RF: 0 cyclobenzaprine 10 MG tablet 10 mg PO TID PRN (Reason: Muscle Spasm) Qty: 20 RF: 0 acetaminophen 325 MG tablet 500 mg PO Q4H PRN PRN (Reason: FEVER) RF: 0 metoprolol tartrate 50 MG tablet 50 mg PO BID RF: 0 insulin regular human 100 UNIT/ML solution 2 - 10 unit subcut TIDCM RF: 0 gabapentin 300 capsule 600 mg PO TID PRN (Reason: Pain) RF: 0 sertraline 100 mg tablet 150 mg PO DAILY RF: 0 amitriptyline 50 mg tablet 50 - 100 mg PO QHS PRN (Reason: Sleep) RF: 0 Primary Care Provider: Luis Starr Referrals: Luis Starr DO [Primary Care Provider] - Disposition Disposition: Acute Care Hospital [facility]
--- NOTE | 2020-06-30 16:09 | PCM.HP.STD ---
Documented by User: Amberly Capellan NP, ENTER[employer] ARCHITECT MANAGER-C 06/30/20 16:51 HPI - General General Date of Admission: 06/30/20 HPI Narrative KENDRA BAILEY, is a 64 M who presents to the emergency room due to right arm and neck pain and generalized weakness. Patient was admitted 06/28/2020 due to same symptoms with the addition of confusion and shortness of breath. Patient drowsy during exam, at bedside provides much of HPI. Patient signed out AGAINST MEDICAL ADVICE during recent admission prior to work-up. states he has had ongoing pain since he returned home and fell yesterday due to weakness. states patient has a history of chronic neck and back pain and follows with pain management in Dr. Verna Boothe. denies neurologic or focal deficits. Patient is able to lift his right arm however states it is difficult due to pain and right arm is not necessarily weak. In emergency room, oxygen is stable on room air. Patient appears tachypneic however reports this is his baseline. reports patient has not been able to lie flat for an extensive amount of time due to heart failure. He has a past medical history of chronic pain syndrome on methadone, tobacco dependence, hypertension, hyperlipidemia, type 2 diabetes mellitus, EBONY, depression, anxiety. [facility] Medical History (Updated 06/30/20 @ 17:06 by Monserrat Martinez) Acute respiratory failure with hypoxia and hypercapnia Anxiety Cardiomegaly Chronic kidney disease (CKD) Chronic pain Chronic pain Chronically on opiate therapy Congestive heart failure (CHF) COPD (chronic obstructive pulmonary disease) Depression Diabetes Encephalopathy Essential (primary) hypertension History of sepsis HLD (hyperlipidemia) Hypertension Kidney stones Migraines Nicotine dependence Opiate dependence EBONY and COPD overlap syndrome Pericardial effusion Pleural effusion Smoker Type 2 diabetes mellitus Home Medications methadone 10 mg PO 4X/DAY PRN 04/23/16 [History Last Taken 06/28/20 10:30] nitroglycerin 0.4 mg SL PRN PRN 04/23/16 [History Last Taken 09/15/16] cyclobenzaprine 10 mg PO TID PRN #20 tab 03/02/17 [Rx Last Taken 03/03/17 20:00] acetaminophen 500 mg PO Q4H PRN PRN tab 03/08/17 [Rx Last Taken Unknown] gabapentin 600 mg PO TID PRN 07/10/18 [History Last Taken 06/28/20 09:00] insulin regular human 2 - 10 unit SUBCUT TIDCM 07/10/18 [History Last Taken 06/28/20 13:30 13 units] metoprolol tartrate 50 mg PO BID 07/10/18 [History Last Taken 06/26/20] albuterol sulfate 90 mcg/actuation aerosol inhaler 2 puff INHALATION Q4H PRN 16 Days #18 g 07/19/18 [History Last Taken 06/27/20] cholecalciferol (vitamin D3) 1,250 mcg (50,000 unit) capsule 1,250 mcg PO DAILY #12 cap 08/10/18 [History Last Taken 06/28/20] hydrochlorothiazide 25 mg tablet 25 mg PO DAILY #90 tab 08/10/18 [History Last Taken 06/27/20] amitriptyline 50 - 100 mg PO QHS PRN 06/28/20 [History Last Taken Unknown] sertraline 150 mg PO DAILY 06/28/20 [History Last Taken 06/28/20] Allergy/AdvReac Type Severity Reaction Status Date / Time No Known Allergies Allergy Verified 06/30/20 13:42 Family History Uncle Myocardial infarction Father Diabetes Melanoma Mother Diabetes Surgical History History of back surgery History of cholecystectomy History of tonsillectomy Hx of appendectomy Social History Smoking Status: Current every day smoker Tobacco: How many years used: 20 ROS Constitutional Constitutional: Reports weakness; Denies change in weight, chills, fatigue or fever(s) Cardiovascular Cardiovascular: Denies chest pain, edema, lightheadedness, palpitations or syncope Respiratory/Chest Respiratory/Chest: Denies cough, dyspnea, productive cough, shortness of breath at rest, shortness of breath with exertion or wheezing Gastrointestinal Gastrointestinal: Denies abdominal pain, constipation, diarrhea, nausea or vomiting Genitourinary Genitourinary: Denies burning urination, difficulty urinating, dysuria, hematuria, urinary frequency, urinary incontinence or urinary urgency Musculoskeletal Musculoskeletal: Reports other Details: Right neck pain radiating down to right shoulder and elbow. Right arm weak compared to left secondary to pain. ; Denies back pain, joint pain or muscle weakness Integumentary Integumentary: Reports systems reviewed and no addt'l complaints, except as documented Neurologic Neurologic: Denies abnormal speech, confusion, dizziness, focal weakness, numbness, paresthesias, seizure-like activity or syncope Psychiatric Psychiatric: Denies anxiety or depression Hematologic/Lymphatic Hematologic/Lymphatic: Denies anemia, easy bleeding or easy bruising Allergic/Immunologic Allergic/Immunologic: Denies hives or asthma Vital Signs Vital Signs Vital Signs: 06/30/20 13:39 06/30/20 13:44 06/30/20 14:30 Temperature 97.7 F L Temperature Source Oral Pulse Rate 112 H 103 H Respiratory Rate 16 16 Respiratory Effort Normal Blood Pressure 104/63 137/72 H Blood Pressure Mean 76 93 Pulse Ox 95 92 Oxygen Delivery Method Room Air Room Air 06/30/20 15:32 06/30/20 16:00 Temperature 97.8 F Temperature Source Oral Pulse Rate 101 H 99 Respiratory Rate 16 16 Respiratory Effort Blood Pressure 126/72 H 119/69 Blood Pressure Mean 90 85 Pulse Ox 92 99 Oxygen Delivery Method Room Air Room Air Physical Exam Const oriented x3 Constitutional Narrative: Drowsy Orientation / Consciousness: awake, oriented to person, oriented to place and oriented to time HEENT normocephalic and moist oral mucous membranes Eyes PERRL, EOMs intact bilaterally and conjunctivae normal Neck no lymphadenopathy Resp clear to auscultation bilaterally Effort and Inspection: tachypneic Auscultation: diminished lung sounds Cardio regular rate, regular rhythm and no murmurs Peripheral Pulses: pulses 2+ throughout GI normal to inspection, nondistended, normoactive bowel sounds, non-tender and non-distended Extremity normal to inspection Skin no rashes or lesions noted Lesions: no lesions Rashes: no rashes Trauma: no lacerations or abrasions Neuro CN's II-XII intact bilaterally, no focal motor deficits, no sensory deficits noted and deep tendon reflexes 2+ bilaterally Psych mental status grossly normal Mood & Affect: flat affect Lab / Micro Data Result Diagrams: 06/30/20 14:30 06/30/20 14:30 Labs: Laboratory Results - last 24 hr 06/30/20 06/30/20 14:30 14:30 WBC 12.0 H RBC 4.66 Hgb 15.2 Hct 44.8 MCV 96.1 H MCH 32.6 H MCHC 33.9 RDW Std Deviation 46.3 H RDW Coeff of Khris 13.0 Plt Count 220 MPV 11.3 Immature Gran % (Auto) 0.500 Neut % (Auto) 61.7 Lymph % (Auto) 23.1 [place] % (Auto) 11.9 H Eos % (Auto) 2.1 Baso % (Auto) 0.7 Absolute Neuts (auto) 7.4 Absolute Lymphs (auto) 2.78 Nucleated RBC % 0 Sodium 134 L Potassium 3.5 Chloride 99 Carbon Dioxide 26.0 Anion Gap 9 BUN 39 H Creatinine 1.31 H Estim Creat Clear Calc 60.67 Est GFR (MDRD) Af Amer 71 Est GFR (MDRD) Non-Af 58 L BUN/Creatinine Ratio 29.8 H Glucose 265 H Calcium 9.1 Assessment & Plan Assessment/Plan (1) Cervical radiculopathy: PLAN: ?1.? Intractable right arm/neck pain with associated right upper extremity limited mobility secondary to pain-?Recent brain CT showed chronic changes. Obtain MRI of the cervical spine. PT/OT. PRN pain regimen. Follows with pain management, Verna Cruz in [place]. 2. Right ICA high-grade stenosis-Recent CTA of head and neck with no occlusion, high-grade stenosis of the right ICA, greater than 70%. Continue aspirin, statin. Will need vascular referral. 3. Chronic COPD-scheduled and as needed albuterol aerosols. 4. Type 2 diabetes mellitus, poorly [id number] with sliding scale insulin.? Hemoglobin A1c 11.2%. Initiate Lantus 10 units twice daily and adjust per Accu-Cheks. 5. Chronic pain syndrome-on methadone, gabapentin, cyclobenzaprine.? Hold sedating regimen.? As needed Tylenol. 6. Tobacco dependence-current half pack per day smoker.? Encouraged cessation. Nicotine replacement patch. 7. Hypertension-continue metoprolol, HCTZ. 8. Hyperlipidemia-not on statin. Added. 9. EBONY-unclear if patient wears CPAP/BiPAP.? Followed with pulmonary medicine in 2019, patient was to have sleep study however it does not appear he has followed up since. BiPAP nightly. 10. Chronic kidney disease stage IIIa-at baseline, trend BMP. 11. Depression/anxiety-continue sertraline. DVT prophylaxis-heparin subcu. CODE STATUS: Discussed with at bedside, elects patient to remain full code. This patient was seen by LAM Gotti under the supervision of Dr. Orozco. Documented by User: Dr. Johanny Orozco DO 06/30/20 20:58 HPI - General General Date of Admission: 06/30/20 [facility] Medical History (Updated 06/30/20 @ 17:06 by Monserrat Martinez) Acute respiratory failure with hypoxia and hypercapnia Anxiety Cardiomegaly Chronic kidney disease (CKD) Chronic pain Chronic pain Chronically on opiate therapy Congestive heart failure (CHF) COPD (chronic obstructive pulmonary disease) Depression Diabetes Encephalopathy Essential (primary) hypertension History of sepsis HLD (hyperlipidemia) Hypertension Kidney stones Migraines Nicotine dependence Opiate dependence EBONY and COPD overlap syndrome Pericardial effusion Pleural effusion Smoker Type 2 diabetes mellitus Home Medications methadone 10 mg PO 4X/DAY PRN 04/23/16 [History Last Taken 06/28/20 10:30] nitroglycerin 0.4 mg SL PRN PRN 04/23/16 [History Last Taken 09/15/16] cyclobenzaprine 10 mg PO TID PRN #20 tab 03/02/17 [Rx Last Taken 03/03/17 20:00] acetaminophen 500 mg PO Q4H PRN PRN tab 03/08/17 [Rx Last Taken Unknown] gabapentin 600 mg PO TID PRN 07/10/18 [History Last Taken 06/28/20 09:00] insulin regular human 2 - 10 unit SUBCUT TIDCM 07/10/18 [History Last Taken 06/28/20 13:30 13 units] metoprolol tartrate 50 mg PO BID 07/10/18 [History Last Taken 06/26/20] albuterol sulfate 90 mcg/actuation aerosol inhaler 2 puff INHALATION Q4H PRN 16 Days #18 g 07/19/18 [History Last Taken 06/27/20] cholecalciferol (vitamin D3) 1,250 mcg (50,000 unit) capsule 1,250 mcg PO DAILY #12 cap 08/10/18 [History Last Taken 06/28/20] hydrochlorothiazide 25 mg tablet 25 mg PO DAILY #90 tab 08/10/18 [History Last Taken 06/27/20] amitriptyline 50 - 100 mg PO QHS PRN 06/28/20 [History Last Taken Unknown] sertraline 150 mg PO DAILY 06/28/20 [History Last Taken 06/28/20] Allergy/AdvReac Type Severity Reaction Status Date / Time No Known Allergies Allergy Verified 06/30/20 13:42 Family History (Reviewed 06/30/20 @ 16:17 by Amberly Capellan ENTERPRISE ARCHITECT MANAGER, EN[employer] ARCHITECT MANAGER-C) Uncle Myocardial infarction Father Diabetes Melanoma Mother Diabetes Surgical History History of back surgery History of cholecystectomy History of tonsillectomy Hx of appendectomy Social History Smoking Status: Current every day smoker Tobacco: How many years used: 20 Lab / Micro Data Result Diagrams: 06/30/20 14:30 06/30/20 14:30
[2020-06-30 17:55] LABS: Bedside Glucose 249 mg/dL (70-110)
[2020-06-30] MEDS: Morphine 4 MG/ML Syringe IV (18:00)
[2020-06-30] MEDS: Ondansetron 4 MG/2 ML Vial IV (18:01)
[2020-06-30] MEDS: Insulin Lispro 100 UNIT/ML INSULN.PEN SC ×2 (18:16→21:33)
--- NOTE | 2020-06-30 19:37 | NURSING ---
pt states home regimen of methadone is 20mg po BID - alejandro sanders made aware & ordered to make same here as this is what pt takes at home
[2020-06-30] MEDS: Heparin Injection (Vial) 5,000 UNIT/ML VIAL 5000 UNIT SC (21:16)
[2020-06-30] MEDS: 0.9% Saline Lock 10 ML Syringe IV (21:25)
[2020-06-30] MEDS: Metoprolol Tartrate 50 MG Tablet PO (21:27)
[2020-06-30] MEDS: Atorvastatin Calcium 40 MG Tablet PO (21:28)
[2020-06-30] MEDS: Methadone 10 MG Tablet 20 MG PO (21:28)
[2020-06-30] MEDS: Amitriptyline 25 MG Tablet 50 MG PO (23:06)
[2020-06-30 23:15] LABS: Bedside Glucose 359 mg/dL (70-110)
[2020-07-01] VITALS (8 sets, daily range): BP systolic 138–183; BP diastolic 87–104; PULSE 78–89; RESP 18–20; TEMP 36.2–37.1; O2SAT 92–97
[2020-07-01] MEDS: 0.9% Saline Lock 10 ML Syringe IV ×2 (01:04→06:55)
[2020-07-01] MEDS: dexAMETHasone 4 MG/ML Vial IV ×4 (01:04→17:42)
[2020-07-01 06:49] LABS: Absolute Lymphocyte Count 0.97 X10^3/uL (0.83-4.51); Absolute Neutrophil Count 7.2 X10^3/uL (2.0-7.7); Basophil# 0.07 X10^3/uL; Basophil% 0.8 % (0-1); Eosinophil# 0.02 X10^3/uL; Eosinophils% 0.2 % (0-5); Hematocrit 47.6 % (40-54); Hemoglobin 15.9 g/dL (13.0-16.5); Lymphocyte # 0.97 X10^3/ul (0.83-4.51); Lymphocyte % 11.3 % (19-41); Mean Corp Hgb Conc 33.4 g/dL (32-36); Mean Corpuscular Hgb 32.4 pg (27.0-32.0); Mean Corpuscular Volume 97.1 fL (80-94); Mean Platelet Vol. 11.4 fl (6.2-12.0); Monocyte# 0.31 X10^3/uL; Monocyte% 3.6 % (0-10); NRBC Flagged by Analyzer 0 % (0-5); Neutrophil # 7.21 X10^3/uL (2.7-7.7); Neutrophil % 83.6 % (47-70); Platelet Count 202 K/mm3 (150-450); RBC Distribution Width CV 12.7 % (11.6-14.6); RBC Distribution Width SD 45.9 fl (35.1-43.9); White Blood Count 8.6 K/mm3 (4.4-11.0)
[2020-07-01] MEDS: Insulin Lispro 100 UNIT/ML INSULN.PEN SC ×2 (06:53→15:08)
[2020-07-01 07:00] LABS: Bedside Glucose 386 mg/dL (70-110)
[2020-07-01 07:51] LABS: AST(SGOT) 15 U/L (15-37); Alanine Aminotransfer ALT/SGPT 19 U/L (16-61); Albumin, Serum 3.2 g/dL (3.2-5.0); Alkaline Phosphatase 86 U/L (45-117); Anion Gap 5 (5-15); BUN 32 mg/dL (7-18); BUN/Creat Ratio 28.8 RATIO (10-20); Bilirubin, Direct 0.14 mg/dL (0.00-0.30); Chloride 99 mmol/L (98-107); Creatinine, Serum 1.11 mg/dL (0.70-1.30); EST Glomerular Filtration Rate 71 mL/min (>60); Est Glom Filt Rate - Afr Amer 86 mL/min (>60); Estimated Creatinine Clearance 71.61 ml/min; Globulin 3.5 g/dL (2.2-4.2); Glucose 399 mg/dL (74-106); Protein, Total 6.7 g/dL (6.4-8.2); Sodium Level 130 mmol/L (136-145)
[2020-07-01] MEDS: Metoprolol Tartrate 50 MG Tablet PO (08:13)
[2020-07-01] MEDS: Methadone 10 MG Tablet 20 MG PO (08:13)
[2020-07-01] MEDS: Sertraline 100 MG Tablet 150 MG PO (08:13)
[2020-07-01] MEDS: Aspirin E.C. 81 MG Tablet PO (08:13)
[2020-07-01] MEDS: hydroCHLOROthiazide 25 MG Tablet PO (08:13)
[2020-07-01] MEDS: Heparin Injection (Vial) 5,000 UNIT/ML VIAL 5000 UNIT SC (08:14)
--- NOTE | 2020-07-01 11:31 | PCM.PN.HOSP ---
Documented by User: Amberly Capellan NP, SEA CAPTAIN-C 07/01/20 11:38 Subjective Subjective Patient seen and examined. Reports mild improvement in right neck and arm pain. Requesting premedication for cervical MRI as he reports claustrophobia. Denies new symptoms or complaints. Objective Data Objective Data Vital Signs: Vital Signs Temp Pulse Resp BP Pulse Ox 97.1 F L 82 18 155/88 H 94 07/01/20 08:00 07/01/20 08:13 07/01/20 08:00 07/01/20 08:00 07/01/20 08:00 Oxygen Delivery Method Room Air Weight: 219 lb 5 oz Body Mass Index (BMI) 30.6 Intake & Output: Intake and Output for Last 24 Hours 06/29/20 06/30/20 07/01/20 23:59 23:59 23:59 Intake Total 640 / 640 200 / 200 Balance 640 / 640 200 / 200 Lab / Micro Data Result Diagrams: 07/01/20 06:10 07/01/20 06:10 Labs: Laboratory Results - last 24 hr 06/30/20 06/30/20 06/30/20 14:30 14:30 17:53 WBC 12.0 H RBC 4.66 Hgb 15.2 Hct 44.8 MCV 96.1 H MCH 32.6 H MCHC 33.9 RDW Std Deviation 46.3 H RDW Coeff of Khris 13.0 Plt Count 220 MPV 11.3 Immature Gran % (Auto) 0.500 Neut % (Auto) 61.7 Lymph % (Auto) 23.1 Harper % (Auto) 11.9 H Eos % (Auto) 2.1 Baso % (Auto) 0.7 Absolute Neuts (auto) 7.4 Absolute Lymphs (auto) 2.78 Nucleated RBC % 0 Sodium 134 L Potassium 3.5 Chloride 99 Carbon Dioxide 26.0 Anion Gap 9 BUN 39 H Creatinine 1.31 H Estim Creat Clear Calc 60.67 Est GFR (MDRD) Af Amer 71 Est GFR (MDRD) Non-Af 58 L BUN/Creatinine Ratio 29.8 H Glucose 265 H Calcium 9.1 Total Bilirubin Direct Bilirubin AST ALT Alkaline Phosphatase Total Protein Albumin Globulin POC Glucose 249 H 06/30/20 07/01/20 07/01/20 21:06 06:10 06:10 WBC 8.6 RBC 4.90 Hgb 15.9 Hct 47.6 MCV 97.1 H MCH 32.4 H MCHC 33.4 RDW Std Deviation 45.9 H RDW Coeff of Khris 12.7 Plt Count 202 MPV 11.4 Immature Gran % (Auto) 0.500 Neut % (Auto) 83.6 H Lymph % (Auto) 11.3 L Harper % (Auto) 3.6 Eos % (Auto) 0.2 Baso % (Auto) 0.8 Absolute Neuts (auto) 7.2 Absolute Lymphs (auto) 0.97 Nucleated RBC % 0 Sodium 130 L Potassium 5.0 Chloride 99 Carbon Dioxide 26.0 Anion Gap 5 BUN 32 H Creatinine 1.11 Estim Creat Clear Calc 71.61 Est GFR (MDRD) Af Amer 86 Est GFR (MDRD) Non-Af 71 BUN/Creatinine Ratio 28.8 H Glucose 399 H Calcium 9.0 Total Bilirubin 0.60 Direct Bilirubin 0.14 AST 15 ALT 19 Alkaline Phosphatase 86 Total Protein 6.7 Albumin 3.2 Globulin 3.5 POC Glucose 359 H 07/01/20 06:53 WBC RBC Hgb Hct MCV MCH MCHC RDW Std Deviation RDW Coeff of Khris Plt Count MPV Immature Gran % (Auto) Neut % (Auto) Lymph % (Auto) Harper % (Auto) Eos % (Auto) Baso % (Auto) Absolute Neuts (auto) Absolute Lymphs (auto) Nucleated RBC % Sodium Potassium Chloride Carbon Dioxide Anion Gap BUN Creatinine Estim Creat Clear Calc Est GFR (MDRD) Af Amer Est GFR (MDRD) Non-Af BUN/Creatinine Ratio Glucose Calcium Total Bilirubin Direct Bilirubin AST ALT Alkaline Phosphatase Total Protein Albumin Globulin POC Glucose 386 H Physical Exam Const alert, oriented x3 and no apparent distress Orientation / Consciousness: awake, oriented to person, oriented to place and oriented to time HEENT normocephalic and moist oral mucous membranes Eyes PERRL, EOMs intact bilaterally and conjunctivae normal Neck no lymphadenopathy Resp normal respiratory effort and clear to auscultation bilaterally Cardio regular rate, regular rhythm and no murmurs Peripheral Pulses: pulses 2+ throughout GI normal to inspection, nondistended, normoactive bowel sounds, non-tender and non-distended Extremity normal to inspection Skin no rashes or lesions noted Lesions: no lesions Rashes: no rashes Trauma: no lacerations or abrasions Neuro CN's II-XII intact bilaterally, no focal motor deficits, no sensory deficits noted and deep tendon reflexes 2+ bilaterally Psych mental status grossly normal and affect normal Assessment & Plan Assessment/Plan (1) Cervical radiculopathy: PLAN: 1. Intractable right arm/neck pain with associated right upper extremity limited mobility secondary to pain- Recent brain CT showed chronic changes. Obtain MRI of the cervical spine. PT/OT. PRN pain regimen. Follows with pain management, [facility] in [place]. IV Decadron. 2. Right ICA high-grade stenosis-Recent CTA of head and neck with no occlusion, high-grade stenosis of the right ICA, greater than 70%. Continue aspirin, statin. Will need vascular referral. 3. Chronic COPD-scheduled and as needed albuterol aerosols. 4. Type 2 diabetes mellitus, poorly [id number] with sliding scale insulin. Hemoglobin A1c 11.2%. Increase Lantus to 20 units twice daily. Scheduled lispro with meals on top of sliding scale. 5. Chronic pain syndrome-on methadone, gabapentin, cyclobenzaprine. As needed Tylenol. 6. Tobacco dependence-current half pack per day smoker. Encouraged cessation. Nicotine replacement patch. 7. Hypertension-continue metoprolol, HCTZ. 8. Hyperlipidemia-not on statin. Added. 9. EBONY-unclear if patient wears CPAP/BiPAP. Followed with pulmonary medicine in 2019, patient was to have sleep study however it does not appear he has followed up since. BiPAP nightly. 10. Chronic kidney disease stage IIIa-at baseline, trend BMP. 11. Depression/anxiety-continue sertraline. DVT prophylaxis-heparin subcu. This patient was seen by Amberly Capellan NP-Esme under the supervision of Dr. Merchant. Documented by User: Dr. Miles Merchant MD 07/01/20 12:03 Subjective Subjective Seen and examined. Patient was admitted with Right arm pain along with weakness. Patient has chronic neck pain. Earlier he signed AMA on May 21. Patient also cervical lower back disease although 2018 echo does not show low EF or pulmonary hypertension Objective Data Lab / Micro Data Result Diagrams: 07/01/20 06:10 07/01/20 06:10 Physical Exam Narrative General: Alert, Oriented x3, Cooperative HEENT: Atraumatic, PERRLA, EOMI, Normocephalic Oral: No Gingival or Mucosal Lesions/ Ulcerations Neck: Supple, No JVD, Negative Carotid Bruits Lungs: Air entry diminished in bilateral lung bases. No crepitation/rhonchi Cardiovascular: Regular rate, Regular Rhythm, Normal S1, Normal S2, systolic murmur over LSB Abdomen: Bowel Sounds Present, Soft, Non Tender, Non-Distended : No renal angle tenderness. No suprapubic tenderness. Extremities: Bilateral lower leg edema. Specifically pigmentation suggestive of venous stasis/venous hypertension. Capillary Refill Less than 3 Seconds Skin: No rashes, No breakdown Musculoskeletal: No Tenderness to Palpation of Joints or Extremities Neurological: Cranial nerves II-XII grossly intact, Deep Tendon Reflexes 2+/4 and Symmetrical, Neuro grossly intact Psych/Mental Status: Normal Affect, Appropriate. Assessment & Plan Assessment/Plan (1) Right arm weakness: (2) EBONY and COPD overlap syndrome: PLAN: This patient was seen in conjunction with Amberly HEBERT. I have independently interviewed and examined the patient and reviewed pertinent history, examination findings, laboratory and plan of management. I have reviewed the note and agree with the documented findings with the few additional points. In brief, patient is admitted for intractable right arm and neck pain. Patient has neck pain/cervical stenosis for last 20 years. MRI brain and C-spine ordered. Patient recently had CT angiogram which showed high-grade stenosis of right ICA to 70% and mild on the left ICA. Last echo in February 2017 reported EF 65%, stage I diastolic dysfunction, RVSP 28 mmHg. Also had Holter monitor for 48 hours in September 2017 which showed no supraventricular ectopic beats/ventricular ectopic beats or A. fib or ventricular tachycardia. Repeat echo tomorrow. Other comorbidities include COPD, chronic smoker half pack per day, possible EBONY I have discussed my assessment with Amberly HEBERT and orders have been reviewed. Visit Charges Inpatient E&M: 38939 Subs Hosp L2
[2020-07-01 11:36] LABS: Bedside Glucose > 500 mg/dL (70-110)
[2020-07-01] MEDS: Insulin Lispro 100 UNIT/ML INSULN.PEN 18 UNIT SC (11:52)
[2020-07-01] MEDS: cycloBENZAPRine HCl 10 MG Tablet PO (11:52)
[2020-07-01] MEDS: Acetaminophen 500 MG Tablet 1000 MG PO (11:52)
[2020-07-01 12:07] LABS: Glucose 569 mg/dL (74-106)
[2020-07-01 13:05] LABS: Bedside Glucose > 500 mg/dL (70-110)
[2020-07-01] MEDS: Insulin Lispro 100 UNIT/ML INSULN.PEN 15 UNIT SC ×2 (13:41→17:41)
[2020-07-01 15:27] LABS: Bedside Glucose 405 mg/dL (70-110)
[2020-07-01 17:46] LABS: Bedside Glucose 253 mg/dL (70-110)
--- NOTE | 2020-07-01 18:36 | NURSING ---
to room, hearing pt yelling at desk. upon walking into room, pt yelling, trying to get out of bed on the right side, is yelling and appears in a panic, skin color pale, lips cyanotic. nurses to room, pt assisted back to center of bed, bipap immediately applied. spo2 96% on bipap. blood sugar 267. pt inconsolable, sitting upright now.Current bipap- resps 34, spo2 98%, pulse 102 per continuous pulse ox, bp 211/114 sitting up, bp on left lower arm.
[2020-07-01 18:40] LABS: Bedside Glucose 278 mg/dL (70-110)
--- NOTE | 2020-07-01 18:41 | NURSING ---
bipap setting 21%, resps 29-32 per bipap. spo2 100%, pulse 95%. pt converses, follows commands of staff, pt appologizes.
[2020-07-01] MEDS: hydrALAZINE 20 MG/ML Vial 10 MG IV (19:01)
--- NOTE | 2020-07-01 21:16 | NURSING ---
Patient got up unassisted to the bathroom, chair alarm sounded. Patient still hooked up to equipment and disgarding what staff is saying to him. When patient was walking to the bathroom he stated i want to sign out. Supervior texted and primary RN aware.
--- NOTE | 2020-07-01 21:57 | NURSING ---
and supervior aware that patient left AMA
--- NOTE | 2020-07-02 09:40 | PCM.DC.SUM ---
Documented by User: Amberly Capellan NP, WELDING SUPERVISOR-C 07/02/20 09:56 Providers Date of Admission: 06/30/20 Date of Discharge: 07/02/20 Primary Care Physician: Dr. Luis Starr DO Reason For Visit: INTRACTABLE RIGHT ARM AND NECK PAIN Diagnosis Discharge Diagnosis (1) Right arm weakness: Status: Acute Code(s): R29.898 - Other symptoms and signs involving the musculoskeletal system (2) EBONY and COPD overlap syndrome: Status: Suspected Code(s): G47.33 - Obstructive sleep apnea (adult) (pediatric); J44.9 - Chronic obstructive pulmonary disease, unspecified Medications at Discharge Home Medications methadone 10 mg PO 4X/DAY PRN 04/23/16 nitroglycerin 0.4 mg SL PRN PRN 04/23/16 cyclobenzaprine 10 mg PO TID PRN #20 tab 03/02/17 acetaminophen 500 mg PO Q4H PRN PRN tab 03/08/17 gabapentin 600 mg PO TID PRN 07/10/18 insulin regular human 2 - 10 unit SUBCUT TIDCM 07/10/18 metoprolol tartrate 50 mg PO BID 07/10/18 albuterol sulfate 90 mcg/actuation aerosol inhaler 2 puff INHALATION Q4H PRN 16 Days #18 g 07/19/18 cholecalciferol (vitamin D3) 1,250 mcg (50,000 unit) capsule 1,250 mcg PO DAILY #12 cap 08/10/18 hydrochlorothiazide 25 mg tablet 25 mg PO DAILY #90 tab 08/10/18 amitriptyline 50 - 100 mg PO QHS PRN 06/28/20 sertraline 150 mg PO DAILY 06/28/20 Hospital Course Operations None Procedures None Summary of Care Provided Minutes Spent on Discharge: 35 Hospital Course: Patient is a 64-year-old male admitted 06/30/2020 due to right arm and neck pain. 1. Intractable right arm/neck pain with associated right upper extremity limited mobility secondary to pain- Recent brain CT showed chronic changes. Follows with pain management, [facility] Cruz in [place]. IV Decadron during admission. PT/OT. MRI of cervical spine ordered for 07/02/2020 however patient signed out AGAINST MEDICAL ADVICE 07/01/20. Patient signed out AGAINST MEDICAL ADVICE twice within 48 hours. 2. Right ICA high-grade stenosis-Recent CTA of head and neck with no occlusion, high-grade stenosis of the right ICA, greater than 70%. Continue aspirin, statin. Recommend vascular surgery referral by PCP. 3. Chronic COPD-scheduled and as needed albuterol aerosols. 4. Type 2 diabetes mellitus, poorly controlled-Hemoglobin A1c 11.2%. Initiated on Lantus and sliding scale/scheduled lispro during admission. However, patient signed out AGAINST MEDICAL ADVICE prior to being treated appropriately. 5. Chronic pain syndrome-on methadone, gabapentin, cyclobenzaprine. 6. Tobacco dependence-current half pack per day smoker. Encouraged cessation. 7. Hypertension-continue metoprolol, HCTZ. 8. Hyperlipidemia-not on statin. Added. 9. EBONY-unclear if patient wears CPAP/BiPAP. Followed with pulmonary medicine in 2019, patient was to have sleep study however it does not appear he has followed up since. 10. Chronic kidney disease stage IIIa-at baseline, trend BMP. 11. Depression/anxiety-continue sertraline. Physical Exam Const alert, oriented x3 and no apparent distress Orientation / Consciousness: awake, oriented to person, oriented to place and oriented to time HEENT normocephalic and moist oral mucous membranes Eyes PERRL, EOMs intact bilaterally and conjunctivae normal Neck no lymphadenopathy Resp normal respiratory effort and clear to auscultation bilaterally Cardio regular rate, regular rhythm and no murmurs Peripheral Pulses: pulses 2+ throughout GI normal to inspection, nondistended, normoactive bowel sounds, non-tender and non-distended Extremity normal to inspection Skin no rashes or lesions noted Lesions: no lesions Rashes: no rashes Trauma: no lacerations or abrasions Neuro CN's II-XII intact bilaterally, no focal motor deficits, no sensory deficits noted and deep tendon reflexes 2+ bilaterally Psych mental status grossly normal and affect normal Patient seen and examined prior to discharge. Physical assessment as noted above. Patient signed out AGAINST MEDICAL ADVICE as noted above. This patient was seen by LAM Gotti under the supervision of Dr. Merchant. ABG / Lab / Microbiology Data Result Diagrams: 07/01/20 06:10 07/01/20 11:39 Laboratory: Laboratory Results - last 24 hr 07/01/20 07/01/20 07/01/20 11:24 11:39 12:57 Glucose 569 H* POC Glucose > 500 H* > 500 H* 07/01/20 07/01/20 07/01/20 15:06 17:34 18:35 Glucose POC Glucose 405 H 253 H 278 H Meaningful Use Info Meaningful Use Diagnoses (Choose all that apply): None applicable Discharge Plan Admission Admit Date/Time: 06/30/20 16:06 Attending Provider: Miles Merchant Primary Care Provider: Luis Starr Instructions Patient Instructions: ED Chest Pain, Noncardiac Discharge Orders/Prescriptions Prescriptions: No Action albuterol sulfate 90 mcg/actuation HFA aerosol inhaler 2 puff INHALATION Q4H PRN (Reason: sob) 16 Days Qty: 18 RF: 0 hydrochlorothiazide 25 mg tablet 25 mg PO DAILY Qty: 90 RF: 0 cholecalciferol (vitamin D3) 50,000 unit capsule 1,250 mcg PO DAILY Qty: 12 RF: 0 nitroglycerin 0.4 MG tablet, sublingual 0.4 mg SL PRN PRN (Reason: pain) RF: 0 methadone 10 MG tablet 10 mg PO 4X/DAY PRN (Reason: Pain) RF: 0 cyclobenzaprine 10 MG tablet 10 mg PO TID PRN (Reason: Muscle Spasm) Qty: 20 RF: 0 acetaminophen 325 MG tablet 500 mg PO Q4H PRN PRN (Reason: FEVER) RF: 0 metoprolol tartrate 50 MG tablet 50 mg PO BID RF: 0 insulin regular human 100 UNIT/ML solution 2 - 10 unit subcut TIDCM RF: 0 gabapentin 300 capsule 600 mg PO TID PRN (Reason: Pain) RF: 0 sertraline 100 mg tablet 150 mg PO DAILY RF: 0 amitriptyline 50 mg tablet 50 - 100 mg PO QHS PRN (Reason: Sleep) RF: 0 Referrals / Follow Up: Luis Starr DO [Primary Care Provider] - Disposition Discharge Orders: Discharge Patient (Routine); Ordered 07/01/20 Ordered By: Amberly Capellan WELDING SUPERVISOR Documented by User: Dr. Miles Merchant MD 07/02/20 14:42 Providers Date of Admission: 06/30/20 Reason For Visit: INTRACTABLE RIGHT ARM AND NECK PAIN Medications at Discharge Home Medications methadone 10 mg PO 4X/DAY PRN 04/23/16 nitroglycerin 0.4 mg SL PRN PRN 04/23/16 cyclobenzaprine 10 mg PO TID PRN #20 tab 03/02/17 acetaminophen 500 mg PO Q4H PRN PRN tab 03/08/17 gabapentin 600 mg PO TID PRN 07/10/18 insulin regular human 2 - 10 unit SUBCUT TIDCM 07/10/18 metoprolol tartrate 50 mg PO BID 07/10/18 albuterol sulfate 90 mcg/actuation aerosol inhaler 2 puff INHALATION Q4H PRN 16 Days #18 g 07/19/18 cholecalciferol (vitamin D3) 1,250 mcg (50,000 unit) capsule 1,250 mcg PO DAILY #12 cap 08/10/18 hydrochlorothiazide 25 mg tablet 25 mg PO DAILY #90 tab 08/10/18 amitriptyline 50 - 100 mg PO QHS PRN 06/28/20 sertraline 150 mg PO DAILY 06/28/20 Hospital Course Summary of Care Provided Hospital Course: ?This patient was seen in conjunction with WELDING SUPERVISORAmberly.? I have independently interviewed and examined the patient and reviewed pertinent history, examination findings, laboratory and plan of management.? I have? reviewed the note and agree with the documented findings with the few? additional points. In brief, patient is admitted for intractable right arm and neck pain.? Patient has neck pain/cervical stenosis for last 20 years.? MRI brain and C-spine ordered.? Patient recently had CT angiogram which showed high-grade stenosis of right ICA to 70% and mild on the left ICA.? Last echo in February 2017 reported EF 65%, stage I diastolic dysfunction, RVSP 28 mmHg.? Also had Holter monitor for 48 hours in September 2017 which showed no supraventricular ectopic beats/ventricular ectopic beats or A. fib or ventricular tachycardia.? Other comorbidities include COPD, chronic smoker half pack per day, possible EBONY. Patient again signed AMA. Recently signed AMA on 06/29/2020 during previous circulation I have discussed my assessment with Amberly HEBERT and orders have been reviewed. Physical Exam Narrative Patient signed AMA last night. Patient was seen yesterday on 07/01/2020. ABG / Lab / Microbiology Data Result Diagrams: 07/01/20 06:10 07/01/20 11:39 Discharge Plan Admission Admit Date/Time: 06/30/20 16:06 Attending Provider: Miles Merchant Primary Care Provider: Luis Starr Instructions Patient Instructions: ED Chest Pain, Noncardiac Discharge Orders/Prescriptions Prescriptions: No Action albuterol sulfate 90 mcg/actuation HFA aerosol inhaler 2 puff INHALATION Q4H PRN (Reason: sob) 16 Days Qty: 18 RF: 0 hydrochlorothiazide 25 mg tablet 25 mg PO DAILY Qty: 90 RF: 0 cholecalciferol (vitamin D3) 50,000 unit capsule 1,250 mcg PO DAILY Qty: 12 RF: 0 nitroglycerin 0.4 MG tablet, sublingual 0.4 mg SL PRN PRN (Reason: pain) RF: 0 methadone 10 MG tablet 10 mg PO 4X/DAY PRN (Reason: Pain) RF: 0 cyclobenzaprine 10 MG tablet 10 mg PO TID PRN (Reason: Muscle Spasm) Qty: 20 RF: 0 acetaminophen 325 MG tablet 500 mg PO Q4H PRN PRN (Reason: FEVER) RF: 0 metoprolol tartrate 50 MG tablet 50 mg PO BID RF: 0 insulin regular human 100 UNIT/ML solution 2 - 10 unit subcut TIDCM RF: 0 gabapentin 300 capsule 600 mg PO TID PRN (Reason: Pain) RF: 0 sertraline 100 mg tablet 150 mg PO DAILY RF: 0 amitriptyline 50 mg tablet 50 - 100 mg PO QHS PRN (Reason: Sleep) RF: 0 Referrals / Follow Up: Luis Starr DO [Primary Care Provider] - Disposition Discharge Orders: Discharge Patient (Routine); Ordered 07/01/20 Ordered By: Amberly Capellan NP Visit Charges Inpatient E&M: 22709 Disch Hosp
== END 2020-07-01 21:48 | disposition left against medical advice (07) | DRG 48 ==
LOC: ED 15:57 → MS3 18:16
PROVIDERS: Nurse Practitioner Family; Admitting Provider Internal Medicine; Emergency Provider Emergency Medicine; PCP Student in an Organized Health Care Education/Training Program; Visit Provider Internal Medicine
DX: M54.12 Radiculopathy, cervical region (principal); I65.21 Occlusion and stenosis of right carotid artery; J44.9 Chronic obstructive pulmonary disease, unspecified; G89.4 Chronic pain syndrome; N18.31 Chronic kidney disease, stage 3a; F17.210 Nicotine dependence, cigarettes, uncomplicated; E78.5 Hyperlipidemia, unspecified; G47.33 Obstructive sleep apnea (adult) (pediatric); F32.9 Major depressive disorder, single episode, unspecified; F41.9 Anxiety disorder, unspecified; E11.22 Type 2 diabetes mellitus with diabetic chronic kidney disease; E11.65 Type 2 diabetes mellitus with hyperglycemia; M48.02 Spinal stenosis, cervical region; I12.9 Hypertensive chronic kidney disease with stage 1 through stage 4 chronic kidney disease, or unspecified chronic kidney disease; F40.240 Claustrophobia; Z79.82 Long term (current) use of aspirin; Z79.891 Long term (current) use of opiate analgesic; Z82.49 Family history of ischemic heart disease and other diseases of the circulatory system; Z90.49 Acquired absence of other specified parts of digestive tract; Z85.820 Personal history of malignant melanoma of skin
CPT/HCPCS: 36415; 36600; 70450; 70496; 70498; 71045; 71275; 80048; 80061; 80076; 80307; 82803; 82947; 82962; 83036; 83735; 83880; 84443; 84484; 85025; 85379; 93005; 94002; 94003; 94640; 94762; 96361; 96372; 96374; 99218; 99251; 99285; J7030; Q9957; Q9967; A4216; G0378; G0463; J1940; J2405

== ENCOUNTER 2021-07-27 10:15 | Inpatient (IN) | payer MEDICARE, MEDICAID, SELFPAY ==
[2021-07-27] VITALS (13 sets, daily range): BP systolic 105–202; BP diastolic 62–109; PULSE 60–100; RESP 16–33; TEMP 36.2–36.7; O2SAT 93–99; BMI 30.2; BMI 30.1
--- NOTE | 2021-07-27 10:21 | RAD_ITS ---
EXAM: XR CHEST, 1 VIEW CLINICAL INDICATION: Neuro deficit, acute, stroke suspected TECHNIQUE: Frontal view of the chest. This report was created using [email or web address] report generation technology. COMPARISON: June 28, 2020 FINDINGS: LUNGS AND PLEURAL SPACES: Linear atelectasis again noted at the left lung base associated with elevated left hemidiaphragm. No pneumothorax. No effusion. HEART: Unremarkable. Cardiac silhouette not enlarged. MEDIASTINUM: Central airways and mediastinal contour are unremarkable. BONES/JOINTS: Unremarkable. SOFT TISSUES: Unremarkable. RAD/Chest 1 View IMPRESSION: No acute cardiopulmonary abnormality. Electronically Signed: Daniel Kyle MD at 11:32 EDT ,
--- NOTE | 2021-07-27 10:21 | EKG12_ITS ---
Test Reason : STROKE SYMPTOMS Blood Pressure : / mmHG Vent. Rate : 085 BPM Atrial Rate : 085 BPM P-R Int : 150 ms QRS Dur : 106 ms QT Int : 430 ms P-R-T Axes : 030 -55 033 degrees QTc Int : 511 ms Normal sinus rhythm Left anterior fascicular block Prolonged QT Abnormal ECG Confirmed by STAR MARTI, YINA ([id number]), assignment desk editor ANNA MOISE ([id number]) on 07/29/2021 12:50:11 PM Referred By: DAVI Confirmed By:YINA GRAVES MD
--- NOTE | 2021-07-27 10:21 | CT_ITS ---
We are attempting to reach an attending provider to discuss findings. An addendum with communication details will be sent when the communication is complete. EXAM: CT HEAD WITHOUT INTRAVENOUS CONTRAST CLINICAL INDICATION: Neuro deficit, acute, stroke suspected TECHNIQUE: Multiple axial images were obtained of the head without intravenous contrast. This CT exam was performed using one or more of the following dose reduction techniques: automated exposure control, adjustment of the mA and/or kV according to patient size, and/or use of iterative reconstruction technique. This report was created using [employer] report [employer] technology. COMPARISON: June 28, 2020 FINDINGS: BRAIN AND EXTRA-AXIAL SPACES: Areas of diminished white matter density noted within both cerebral hemispheres suggestive of chronic microvascular change. Prominence of the cortical sulci and ventricles consistent with volume loss change. Aspect score 10. No intra- or extra-axial hemorrhage. No evidence of acute infarct. No intracranial mass or mass effect. There is preservation of the gaona/white matter interface. Posterior fossa structures are unremarkable. Basal cisterns are patent. BONES/JOINTS: Unremarkable. No discrete lytic or blastic abnormalities. SINUSES: Unremarkable as visualized. Clear. MASTOID AIR CELLS: Unremarkable. Clear. ORBITS: Visualized globes, extraocular muscles, optic nerves and retrobulbar fat appear unremarkable. CT/STROKE Brain/Head without Cont IMPRESSION: 1. No acute intracranial abnormality. 2. Chronic microvascular changes. Aspect score 10. Electronically Signed: Daniel Kyle MD at 11:12 EDT ,
--- NOTE | 2021-07-27 10:22 | CT_ITS ---
INDICATION: Neuro deficit, acute, stroke suspected EXAMINATION: CTA HEAD - CTA Head and Neck W/ Contrast Injection (and W/O Contrast Images if performed) TECHNIQUE: [place]/head CT angiogram protocol was performed following IV contrast. Routine carotid CT angiogram protocol was performed without and with IV contrast. NASCET criteria using the distal ICAs for comparison were used for evaluation of stenoses. 3D reconstructions were reviewed of the CT angiogram head and neck. A radiation dose optimization technique was used for this scan. IV Contrast dosage and agent: 100 cc [id number] COMPARISON: June 28, 2020 FINDINGS: --Anterior cerebral circulation: ACAs: No significant stenosis at the visualized segments. ACOM: Present. MCAs: No significant stenosis at the visualized segments. --Posterior cerebral circulation: PCOMs: Present bilaterally course developer: No significant stenosis at the visualized segments. BASILAR ARTERY: No significant stenosis. --Carotid and vertebral circulation: AORTIC ARCH AND BRANCHES: Normal anatomy, patent. RIGHT CCA: No occlusion, significant stenosis or dissection. RIGHT ICA: Approximate 70% stenosis again noted unchanged from prior exam. LEFT CCA: No occlusion, significant stenosis or dissection. LEFT ICA: No occlusion, significant stenosis or dissection. RIGHT VERTEBRAL ARTERY: No occlusion, significant stenosis or dissection. LEFT VERTEBRAL ARTERY: No occlusion, significant stenosis or dissection. NECK SOFT TISSUES: Unremarkable. LUNG APICES: Clear. BONES: Unremarkable. CT/STROKE CTA Head AND Neck W/Con IMPRESSION: Stable 70% stenosis of the proximal right internal carotid artery. No intracranial stenosis, occlusion or aneurysm. N.B. : The above Results were Read Back by Daniel Kyle MD to Wilver Hollingsworth MD, and understanding confirmed on 07/27/2021 11:18:14 (ET). Electronically Signed: Daniel Kyle MD at 11:21 EDT ,
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
--- NOTE | 2021-07-27 10:28 | CT_ITS ---
EXAM: CT CERVICAL SPINE WITHOUT INTRAVENOUS CONTRAST CLINICAL INDICATION: Trauma TECHNIQUE: Helically acquired images were obtained of the cervical spine without intravenous contrast. 2D reformatted images were reviewed. This CT exam was performed using one or more of the following dose reduction techniques: automated exposure control, adjustment of the mA and/or kV according to patient size, and/or use of iterative reconstruction technique. This report was created using [employer] report generation technology. COMPARISON: None. FINDINGS: VERTEBRAE: Unremarkable. No fracture. No traumatic subluxation. No discrete lytic or blastic abnormality. Normal alignment. Normal craniocervical junction and cervicothoracic junction. DISCS/SPINAL CANAL/NEURAL FORAMINA: Multilevel disc space narrowing, vertebral body hypertrophy and facet arthropathy. Prominent multilevel neural foraminal narrowing related to uncinate joint hypertrophy. SOFT TISSUES: Unremarkable. No prevertebral soft tissue swelling. LYMPH NODES: Unremarkable. No cervical adenopathy. LUNG APICES: Unremarkable as visualized. Clear. CT/Spine Cervical without Contras IMPRESSION: No acute abnormality. Prominent diffuse spondylosis. Electronically Signed: Daniel Kyle MD at 11:31 EDT ,
[2021-07-27 10:41] LABS: Absolute Lymphocyte Count 2.22 X10^3/uL (0.83-4.51); Absolute Neutrophil Count 5.2 X10^3/uL (2.0-7.7); Basophil# 0.06 X10^3/uL; Basophil% 0.7 % (0-1); Eosinophil# 0.17 X10^3/uL; Hemoglobin 17.3 g/dL (13.0-16.5); Lymphocyte # 2.22 X10^3/ul (0.83-4.51); Mean Corp Hgb Conc 35.3 g/dL (32-36); Mean Corpuscular Hgb 33.2 pg (27.0-32.0); Mean Platelet Vol. 11.1 fl (6.2-12.0); Monocyte# 0.84 X10^3/uL; Monocyte% 9.8 % (0-10); NRBC Flagged by Analyzer 0 % (0-5); Neutrophil # 5.21 X10^3/uL (2.7-7.7); Platelet Count 223 K/mm3 (150-450); RBC Distribution Width CV 12.6 % (11.6-14.6); RBC Distribution Width SD 43.8 fl (35.1-43.9); Red Blood Count 5.21 M/mm3 (4.6-6.2); White Blood Count 8.5 K/mm3 (4.4-11.0)
[2021-07-27 10:58] LABS: Prothrombin Time (Protime)PT. 13.2 SECONDS (11.7-14.9)
[2021-07-27 10:59] LABS: Partial Thromboplast Time 26.8 Seconds (24.1-36.2)
--- NOTE | 2021-07-27 11:00 | NURSING ---
lab calls critical glucose 477 aware
[2021-07-27 11:01] LABS: Anion Gap 9 (5-15); BUN 20 mg/dL (7-18); BUN/Creat Ratio 15.4 RATIO (10-20); Calcium,Total 9.3 mg/dL (8.5-10.1); Chloride 97 mmol/L (98-107); EST Glomerular Filtration Rate 59 mL/min (>60); Est Glom Filt Rate - Afr Amer 71 mL/min (>60); Estimated Creatinine Clearance 57.71 ml/min; Glucose 477 mg/dL (74-106); Potassium 2.9 mmol/L (3.5-5.1); Sodium Level 132 mmol/L (136-145); Troponin-I HS 17 pg/mL (3.0-78.0)
[2021-07-27] MEDS: 0.9% Normal Saline 1,000 ML 999 ML IV (11:11)
[2021-07-27 11:21] LABS: Bedside Glucose 445 mg/dL (74-106)
--- NOTE | 2021-07-27 12:08 | HP.PCM.HOS_ITS ---
HPI - General General Date of Admission: 07/27/21 Date of Service: 07/27/21 HPI Narrative KENDRA BAILEY, is a 66 M with a PMh as outlined who presents via the ED on 07/27/2021 with a complaint of left arm weakness. Patient tripped and fell a few days prior to admission, and struck the right side of hs face and back of h is head against a wall. He subsequently noted left arm weakness which hasnt impoved. Hd denied any previous history of falls, and no history of stroke or intracranial bleed. He was therefore brought in for a stroke workup. He denied any fever, chills, dizziness, numbness, nausea or vomiting. He admitted to feeling dehydrated, which thought was because they lost power and have experienced very hot weather. Review of systems is otherwise negative. Vitals in the ED were BP of 117/62, temp of 97.4F, RR of 18 and he was saturating at 96% on room air. CBC showed hemoglobin of 17.3 with WBC of 8.5 and platelets of 223. CBC showed sodium of 132, potassium of 2.9 and chloride of 97. Creatinine is 1.3 and glucose is 447. He had small level of acetones. Bicarb is 26 and anion gap is 9. CT of the brain showed no acute intracranial pathology and showed chronic microvascular changes. CTA of the head and neck shows stable 70% stenos is of the proximal right internal carotid artery and cervical spine CT showed probated diffuse spondylolysis. No acute abnormality. He has been admitted to be managed for general debility and left-sided weakness rule out a stroke as well as hypokalemia. [facility] Medical History Acute respiratory failure Acute respiratory failure with hypoxia and hypercapnia Adjustment disorder Altered mental status Anxiety Calcification of [place] coronary artery Cardiomegaly Carotid artery stenosis Chronic kidney disease (CKD) Chronic pain Chronically on opiate therapy Congestive heart failure (CHF) COPD (chronic obstructive pulmonary disease) Depression Encephalopathy Essential (primary) hypertension History of sepsis HLD (hyperlipidemia) Insomnia Kidney stones Migraines Nicotine dependence Opiate dependence Orthopnea EBONY and COPD overlap syndrome Pericardial effusion (06/2020) Pleural effusion Right arm weakness Smoker Stenosis of right carotid artery Type 2 diabetes mellitus Type 2 diabetes mellitus without complication Home Medications nitroglycerin 0.4 mg sublingual tablet 0.4 mg sublingual PRN PRN pain 03/15/17 [History Last Taken 09/15/16] cyclobenzaprine 10 mg tablet 10 mg PO TID PRN Muscle Spasm #20 tabs 03/02/17 [Rx Last Taken 03/03/17 20:00] metoprolol tartrate 50 mg tablet 50 mg PO BID Check with primary doctor 07/10/18 [History Last Taken 06/26/20] albuterol sulfate 90 mcg/actuation aerosol inhaler 2 puff inhalation Q4H PRN sob 16 days #18 grams 07/19/18 [History Last Taken 06/27/20] hydrochlorothiazide 25 mg tablet 25 mg PO DAILY diuretic #90 tabs 08/10/18 [History Last Taken 06/27/20] amitriptyline 50 mg tablet 50 - 100 mg PO QHS PRN Sleep 06/28/20 [History Last Taken Unknown] acetaminophen 500 mg tablet 500 mg PO Q4H PRN 08/02/20 [History Last Taken Unknown] aspirin 81 mg tablet,delayed release (Adult Low Dose Aspirin) 81 mg PO DAILY 08/02/20 [History Last Taken Unknown] benzonatate 200 mg capsule 200 mg PO TID PRN 08/02/20 [History Last Taken Unknown] cholecalciferol (vitamin D3) 1,250 mcg (50,000 unit) capsule 1,250 mcg PO QWEEK #12 caps 08/02/20 [History Last Taken Unknown] gabapentin 600 mg tablet 600 mg PO TID 08/02/20 [History Last Taken Unknown] insulin NPH-regular 70-30 U-100 insulin 100 unit/mL subcutaneous pen 10 unit subcut BID 08/02/20 [History Last Taken Unknown] insulin lispro 100 unit/mL subcutaneous solution See Rx Instructions subcut .COMPLEX 08/02/20 [History Last Taken Unknown] lisinopril 40 mg tablet 40 mg PO DAILY 08/02/20 [History Last Taken Unknown] methadone 10 mg tablet 10 mg PO Q4H PRN Pain 08/02/20 [History Last Taken Unknown] sertraline 100 mg tablet 100 mg PO DAILY mental health 08/02/20 [History Last Taken Unknown] sertraline 50 mg tablet 50 mg PO DAILY 08/02/20 [History Last Taken Unknown] Allergy/AdvReac Type Severity Reaction Status Date / Time No Known Allergies Allergy Verified 06/24/21 11:07 Family History Uncle Myocardial infarction Father Diabetes Melanoma Cancer bladder Mother Diabetes Heart disease Grandfather Parkinson's disease Grandmother Breast cancer Surgical History History of cholecystectomy (09/17/12) History of fusion of cervical spine History of repair of right rotator cuff History of tonsillectomy Hx of appendectomy (~1963) Social History Smoking Status: Current every day smoker tobacco type: cigarettes Tobacco: How many years used: 20 alcohol intake: never substance use type: does not use ROS Constitutional Constitutional: Reports fatigue, malaise and weakness; Denies anorexia, change in weight, chills or fever(s) Eyes Eyes: Denies change in vision ENT HEENT: Denies dysphagia, headache(s), nasal congestion or sore throat Cardiovascular Cardiovascular: Denies chest pain, dyspnea on exertion, edema, lightheadedness, orthopnea, palpitations, paroxysmal nocturnal dyspnea, rapid heart rate or syncope Respiratory/Chest Respiratory/Chest: Denies cough, shortness of breath at rest or shortness of breath with exertion Gastrointestinal Gastrointestinal: Denies abdominal pain, nausea or vomiting Genitourinary Genitourinary: Denies dysuria Musculoskeletal Musculoskeletal: Denies arthralgias, back pain or neck pain Neurologic Neurologic: Reports focal weakness and headache(s); Denies abnormal speech, confusion, dizziness, numbness, seizure-like activity, seizures, syncope, tingling or tremor(s) Psychiatric Psychiatric: Denies anxiety or depression Endocrine Endocrinology: Denies change in body appearance Hematologic/Lymphatic Hematologic/Lymphatic: Denies anemia Vital Signs Vital Signs Vital Signs: 07/27/21 10:19 07/27/21 11:12 Temperature 97.4 F L Temperature Source Oral Pulse Rate 86 Respiratory Rate 18 Blood Pressure 117/62 Blood Pressure Mean 80 Pulse Ox 96 Oxygen Delivery Method Room Air Room Air Weight Weight: 210 lb 8.663 oz Body Mass Index (BMI) 30.2 Physical Exam Const alert Orientation / Consciousness: lethargic HEENT normocephalic, head/scalp atraumatic and hearing grossly normal bilaterally HEENT Narrative: oral mucous membranes very dry Eyes PERRL, EOMs intact bilaterally and conjunctivae normal Neck no lymphadenopathy, supple and no JVD Resp normal respiratory effort, no retractions, no use of accessory muscles and clear to auscultation bilaterally Cardio regular rate, regular rhythm, S1 normal heart sound, S2 normal heart sound and no murmurs GI normal to inspection, nondistended, normoactive bowel sounds, soft to palpation, non-tender and non-distended Extremity normal to inspection Neuro oriented x3, CN's II-XII intact bilaterally and moves all extremities Neuro Narrative: mild LUE weakness (4/5). power 5/5 in all other extremities Sensorium / Orientation: awake and alert Speech: speech normal Psych affect normal Results Lab / Micro Data Result Diagrams: 07/27/21 10:23 07/27/21 10:23 Labs: Laboratory Results - last 24 hr 07/27/21 10:23: WBC 8.5, RBC 5.21, Hgb 17.3 H, Hct 49.0, MCV 94.0, MCH 33.2 H, MCHC 35.3, RDW Std Deviation 43.8, RDW Coeff of Khris 12.6, Plt Count 223, MPV 11.1, Immature Gran % (Auto) 0.500, Neut % (Auto) 61.0, Lymph % (Auto) 26.0, [place] % (Auto) 9.8, Eos % (Auto) 2.0, Baso % (Auto) 0.7, Absolute Neuts (auto) 5.2, Absolute Lymphs (auto) 2.22, Nucleated RBC % 0 07/27/21 10:23: PT 13.2, INR 1.0, APTT 26.8 07/27/21 10:23: Sodium 132 L, Potassium 2.9 L, Chloride 97 L, Carbon Dioxide 26.0, Anion Gap 9, BUN 20 H, Creatinine 1.30, Estim Creat Clear Calc 57.71, Est GFR (MDRD) Af Amer 71, Est GFR (MDRD) Non-Af 59 L, BUN/Creatinine Ratio 15.4, Glucose 477 H*, Calcium 9.3, Troponin I High Sens 17 07/27/21 11:13: Acetone Level SMALL H 07/27/21 11:16: POC Glucose 445 H Radiology Impression Brain CT 07/27/21 10:21 IMPRESSION: 1. No acute intracranial abnormality. 2. Chronic microvascular changes. Aspect score 10. Electronically Signed: Daniel Kyle MD at 11:12 EDT , ADDENDUM: 07/27/21 1125 IMPRESSION: 1. No acute intracranial abnormality. 2. Chronic microvascular changes. Aspect score 10. N.B. : The above Results were Read Back by Daniel Kyle MD to Wilver Hollingsworth MD, and understanding confirmed on 07/27/2021 11:18:21 (ET). Electronically Signed: Daniel Kyle MD at 11:12 EDT , Chest X-Ray 07/27/21 10:21 IMPRESSION: No acute cardiopulmonary abnormality. Electronically Signed: Daniel Kyle MD at 11:32 EDT , Head/Neck CTA 07/27/21 10:22 IMPRESSION: Stable 70% stenosis of the proximal right internal carotid artery. No intracranial stenosis, occlusion or aneurysm. N.B. : The above Results were Read Back by Daniel Kyle MD to Wilver Hollingsworth MD, and understanding confirmed on 07/27/2021 11:18:14 (ET). Electronically Signed: Daniel Kyle MD at 11:21 EDT , ADDENDUM: 07/27/21 1128 IMPRESSION: Stable 70% stenosis of the proximal right internal carotid artery. No intracranial stenosis, occlusion or aneurysm. N.B. : The above Results were Read Back by Daniel Kyle MD to Wilver Hollingsworth MD, and understanding confirmed on 07/27/2021 11:18:14 (ET). Electronically Signed: Daniel Kyle MD at 11:21 EDT , Cervical Spine CT 07/27/21 10:28 IMPRESSION: No acute abnormality. Prominent diffuse spondylosis. Electronically Signed: Daniel Kyel MD at 11:31 EDT , Assessment & Plan Assessment/Plan (1) Left hand weakness: (2) Fall: (3) Hyperglycemia due to diabetes mellitus: (4) Hypokalemia: PLAN: Plan #left sided weakness due to recent mechanical fall * admit to PCU * in light of persistent left sided weakness, CT of the brain was done to rule out a stroke, which was negative. * CTA of the head and neck showed chronic 70% right sided internal carotid artery stenosis * I do think it is prudent to rule out a stroke in light of persistent left sided weakness though he fell 3 days ago and considering the right sided internal carotid stenosis * get MRI of the brain to rule out a stroke * PT/.OT consult * fall precautions * hold off on aspirin until a brain bleed is ruled out conclusively with MRI. High intensity statin * #Hypokalemia: potassium is 2.9. Will replace aggressively and trend #Hyponatremia * sodium is 132. chloride is also 97, indicating dehydration * patient says he feels very dehydrated due to the recent heat and power outage * will hydrate with IVF NS @ 125cc/hr. He does have a history of heart failure, so wont be overly aggressive with the IVF * #Type 3 diabetes mellitus with hyperglycemia * blood sugar is 447. with small acetone in blood * bicarb is 26 and anion gap is 9. * Will hydrate witth IVF as above, and resume insulin; on NPH insulin 70/30 10 units bid * ISS. Accuchecks ACHS * #RIght sided carotid stenosis * has chronic 70% stenosis of right carotid artery. * high intensity statin * will benefitt from vascular surgery follow up on outpatient basis * #Hyperlipidemia: on statin #EBONY and COPD: on breathing treatment with bronchodilators. CPAP qhs #Hypertension: on HCTZ. metoprolol and lisinopril #Depression; on sertraline DVT prophylaxis: SCDs Code status: full code * Patient and counseled extensively about different types of CODE STATUS including full code, DNR CCA and DNR CCA. Patient elects to be full code. Total dnen-ss-vcsn time 16 minutes. Charges/Coding Visit Charges OBSV E&M: 76833 Initial observation care L3 Procedures Hospitalists Procedures: 32374 Advncd Care Plan 30 Min
[2021-07-27] MEDS: Labetalol (Prefilled) 20 MG/4 ML IV (12:20)
--- NOTE | 2021-07-27 14:14 | ECHOCS_ITS ---
Version 2 Reason For Study: TIA/CVA Procedure This was a 2D Doppler, Color Flow transthoracic echocardiogram. The study was technically difficult. Patient scanned supine. Exam performed portable in patient room. Left Ventricle Normal LV size. Moderate concentric left ventricular hypertrophy. Left ventricular systolic function is normal. The estimated ejection fraction is 65 %. Stage 1 diastolic dysfunction. No regional wall motion abnormalities noted. Right Ventricle Normal RV size. Normal systolic function. Atria Normal left atrium. Normal right atrium. Bubble contrast study negative for right to left interatrial shunt. Mitral Valve Mild focal mitral valve calcification of the anterior leaflet. Tricuspid Valve Normal tricuspid valve. Unable to estimate RV systolic pressure due to inadequate jet, pulmonary artery pressure probably normal. Aortic Valve Trisinus/trileaflet aortic valve. Mild focal aortic valve calcification. Pulmonic Valve Normal pulmonic valve. Mild (1+) pulmonic valve insufficiency. Great Vessels Normal aortic root. The pulmonary artery is normal size. Normal inferior vena cava. Pericardium/Pleural Small pericardial effusion. There are no echocardiographic indications of cardiac tamponade. Medication Performed a rapid injection of agitated mix of 9 cc saline and 1cc air to assess for atrial septal defect. Diluted definity 2ml given slow IV push to enhance endocardial definition. MMode/2D Measurements & Calculations LVIDd: 3.5 cm IVSd: 1.3 cm Ao root diam: 3.6 cm LVIDs: 1.7 cm LVPWd: 1.3 cm RVDd: 2.8 cm FS: 50.2 % LAV(MOD-bp): 26.4 ml LVAd ap4: 29.1 cm2 LVAd ap2: 28.1 cm2 LAV(MOD-bp) Indexed: 12.4 ml/m2 LVLd ap4: 8.5 cm LVLd ap2: 8.5 cm LAV(MOD-sp2): 22.0 ml EDV(MOD-sp4): 80.6 ml EDV(MOD-sp2): 76.3 ml LAV(MOD-sp4): 30.4 ml EDV(sp4-el): 84.5 ml EDV(sp2-el): 78.8 ml LVAs ap4: 12.5 cm2 LVAs ap2: 16.2 cm2 LVLs ap4: 6.9 cm LVLs ap2: 7.3 cm ESV(MOD-sp4): 18.1 ml ESV(MOD-sp2): 28.7 ml ESV(sp4-el): 19.0 ml ESV(sp2-el): 30.3 ml EF(MOD-sp4): 77.6 % EF(MOD-sp2): 62.3 % EF(sp4-el): 77.5 % SV(MOD-sp4): 62.5 ml SV(MOD-sp2): 47.6 ml SV(sp4-el): 65.4 ml LA A4 area: 13.4 cm2 LA dimension(2D): 2.8 cm RA A4 area: 11.9 cm2 Doppler Measurements & Calculations MV E max anton: 51.2 cm/sec Lat Peak E' Anton: 7.8 cm/sec Med Peak E' Anton: 6.6 cm/sec MV A max anton: 89.9 cm/sec E/E' lat: 6.5 E/E' med: 7.8 MV E/A: 0.57 Ao V2 max: 150.8 cm/sec LV V1 max: 123.9 cm/sec PA V2 max: 67.0 cm/sec Ao max P.1 mmHg LV V1 max P.1 mmHg ECHO/Echo Complete W/ Contrast Interpretation Summary Normal LV size. Moderate concentric left ventricular hypertrophy. Left ventricular systolic function is normal. The estimated ejection fraction is 65 %. Stage 1 diastolic dysfunction. Bubble contrast study negative for right to left interatrial shunt. Small pericardial effusion. There are no echocardiographic indications of cardiac tamponade. Contrast injection was performed. Ordering Physician: Margaret Bahena Referring Physician: Luis Starr Performed By: Ying Palacios RDCS
[2021-07-27] MEDS: Insulin Lispro 100 UNIT/ML INSULN.PEN SC ×2 (17:15→23:19)
[2021-07-27 17:16] LABS: Bedside Glucose 350 mg/dL (74-106)
[2021-07-27] MEDS: Metoprolol Tartrate 50 MG Tablet PO (23:15)
[2021-07-27] MEDS: Methadone 10 MG Tablet PO (23:15)
[2021-07-28] VITALS (12 sets, daily range): BP systolic 137–166; BP diastolic 77–92; PULSE 73–86; RESP 16–20; TEMP 36.3–36.6; O2SAT 94–98; BMI 30.1
[2021-07-28 00:01] LABS: Bedside Glucose 249 mg/dL (74-106)
[2021-07-28] MEDS: Methadone 10 MG Tablet PO (05:59)
[2021-07-28 06:32] LABS: Absolute Lymphocyte Count 2.06 X10^3/uL (0.83-4.51); Absolute Neutrophil Count 6.1 X10^3/uL (2.0-7.7); Basophil# 0.07 X10^3/uL; Basophil% 0.7 % (0-1); Eosinophil# 0.17 X10^3/uL; Eosinophils% 1.8 % (0-5); Hematocrit 48.5 % (40-54); Hemoglobin 17.1 g/dL (13.0-16.5); Lymphocyte # 2.06 X10^3/ul (0.83-4.51); Mean Corp Hgb Conc 35.3 g/dL (32-36); Mean Corpuscular Hgb 33.1 pg (27.0-32.0); Mean Corpuscular Volume 93.8 fL (80-94); Mean Platelet Vol. 11.5 fl (6.2-12.0); Monocyte# 0.98 X10^3/uL; Monocyte% 10.4 % (0-10); NRBC Flagged by Analyzer 0 % (0-5); Neutrophil # 6.07 X10^3/uL (2.7-7.7); Neutrophil % 64.8 % (47-70); Platelet Count 219 K/mm3 (150-450); RBC Distribution Width CV 12.8 % (11.6-14.6); RBC Distribution Width SD 44.4 fl (35.1-43.9); Red Blood Count 5.17 M/mm3 (4.6-6.2); White Blood Count 9.4 K/mm3 (4.4-11.0)
[2021-07-28 07:15] LABS: Anion Gap 9 (5-15); BUN 16 mg/dL (7-18); BUN/Creat Ratio 19.7 RATIO (10-20); Calcium,Total 9.7 mg/dL (8.5-10.1); Chloride 103 mmol/L (98-107); Cholesterol 171 mg/dL (200); Creatinine, Serum 0.81 mg/dL (0.70-1.30); EST Glomerular Filtration Rate 101 mL/min (>60); Est Glom Filt Rate - Afr Amer 122 mL/min (>60); Estimated Creatinine Clearance 92.63 ml/min; Glucose 201 mg/dL (74-106); High Density Lipoprotein 32 mg/dL; Potassium 2.7 mmol/L (3.5-5.1); Sodium Level 137 mmol/L (136-145); Triglycerides 156 mg/dL; Very Low Density Lipoprotein 31 mg/dL (5-40)
[2021-07-28] MEDS: Insulin Lispro 100 UNIT/ML INSULN.PEN SC ×3 (07:42→21:36)
[2021-07-28] MEDS: Potassium Chloride 10mEq/100mL 10 MEQ/100 ML IV.SOLN. 100 MEQ IV BOLUS ×4 (08:17→13:48)
[2021-07-28] MEDS: Aspirin E.C. 81 MG Tablet PO (09:36)
[2021-07-28] MEDS: Sertraline 100 MG Tablet 150 MG PO (09:37)
[2021-07-28] MEDS: hydroCHLOROthiazide 25 MG Tablet PO (09:37)
[2021-07-28] MEDS: Insulin Human 75/25 Kwickpen 14 UNIT SC ×2 (09:37→16:51)
[2021-07-28] MEDS: Ergocalciferol 1.25 MG (50, 000 UNIT) Capsule PO (09:37)
--- NOTE | 2021-07-28 09:40 | PN.HOSP_ITS ---
Subjective Subjective Patient seen and examined. He was more alert today. He complained of feeling hungry, and still complained of the left UE weakness. He denied fever, chills, nausea, vomiting or diarrhea or any numbness. He is due for speech therapy evaluation today due to dysphagia. He is awaiting MRI. REview of systems is otherwise negative. Objective Data Objective Data Vital Signs: Vital Signs Temp Pulse Resp BP Pulse Ox 97.6 F L 76 18 139/77 H 95 07/28/21 06:00 07/28/21 07:00 07/28/21 06:00 07/28/21 06:00 07/28/21 08:04 Oxygen Flow Rate (L/min) 2 Oxygen Delivery Method Room Air Weight: 209 lb 14.081 oz Body Mass Index (BMI) 30.1 Intake & Output: Intake and Output for Last 24 Hours 07/26/21 07/27/21 07/28/21 23:59 23:59 23:59 Intake Total 1000 / 1000 100 / 100 Output Total 100 / 250 150 / 150 Balance 900 / 750 -50 / -50 Lab / Micro Data Result Diagrams: 07/28/21 05:40 07/28/21 05:40 Labs: Laboratory Results - last 24 hr 07/27/21 10:23: WBC 8.5, RBC 5.21, Hgb 17.3 H, Hct 49.0, MCV 94.0, MCH 33.2 H, MCHC 35.3, RDW Std Deviation 43.8, RDW Coeff of Khris 12.6, Plt Count 223, MPV 11.1, Immature Gran % (Auto) 0.500, Neut % (Auto) 61.0, Lymph % (Auto) 26.0, [place] % (Auto) 9.8, Eos % (Auto) 2.0, Baso % (Auto) 0.7, Absolute Neuts (auto) 5.2, Absolute Lymphs (auto) 2.22, Nucleated RBC % 0 07/27/21 10:23: PT 13.2, INR 1.0, APTT 26.8 07/27/21 10:23: Sodium 132 L, Potassium 2.9 L, Chloride 97 L, Carbon Dioxide 26.0, Anion Gap 9, BUN 20 H, Creatinine 1.30, Estim Creat Clear Calc 57.71, Est GFR (MDRD) Af Amer 71, Est GFR (MDRD) Non-Af 59 L, BUN/Creatinine Ratio 15.4, Glucose 477 H*, Calcium 9.3, Troponin I High Sens 17 07/27/21 11:13: Acetone Level SMALL H 07/27/21 11:16: POC Glucose 445 H 07/27/21 17:13: POC Glucose 350 H 07/27/21 23:19: POC Glucose 249 H 07/28/21 05:40: WBC 9.4, RBC 5.17, Hgb 17.1 H, Hct 48.5, MCV 93.8, MCH 33.1 H, MCHC 35.3, RDW Std Deviation 44.4 H, RDW Coeff of Khris 12.8, Plt Count 219, MPV 11.5, Immature Gran % (Auto) 0.300, Neut % (Auto) 64.8, Lymph % (Auto) 22.0, [place] % (Auto) 10.4 H, Eos % (Auto) 1.8, Baso % (Auto) 0.7, Absolute Neuts (auto) 6.1, Absolute Lymphs (auto) 2.06, Nucleated RBC % 0 07/28/21 05:40: Sodium 137, Potassium 2.7 L*, Chloride 103, Carbon Dioxide 25.0, Anion Gap 9, BUN 16, Creatinine 0.81, Estim Creat Clear Calc 92.63, Est GFR (MDRD) Af Amer 122, Est GFR (MDRD) Non-Af 101, BUN/Creatinine Ratio 19.7, Glucose 201 H, Calcium 9.7, Triglycerides 156, Cholesterol 171, LDL Cholesterol 108, VLDL Cholesterol 31, HDL Cholesterol 32 L Radiography Diagnostic Testing: Radiology Impression Brain CT 07/27/21 10:21 IMPRESSION: 1. No acute intracranial abnormality. 2. Chronic microvascular changes. Aspect score 10. Electronically Signed: Daniel Kyle MD at 11:12 EDT , ADDENDUM: 07/27/21 9383 IMPRESSION: 1. No acute intracranial abnormality. 2. Chronic microvascular changes. Aspect score 10. N.B. : The above Results were Read Back by Daniel Kyle MD to Wilver Hollingsworth MD, and understanding confirmed on 07/27/2021 11:18:21 (ET). Electronically Signed: Daniel Kyle MD at 11:12 EDT , Chest X-Ray 07/27/21 10:21 IMPRESSION: No acute cardiopulmonary abnormality. Electronically Signed: Daniel Kyle MD at 11:32 EDT , Head/Neck CTA 07/27/21 10:22 IMPRESSION: Stable 70% stenosis of the proximal right internal carotid artery. No intracranial stenosis, occlusion or aneurysm. N.B. : The above Results were Read Back by Daniel Kyle MD to Wilver Hollingsworth MD, and understanding confirmed on 07/27/2021 11:18:14 (ET). Electronically Signed: Daniel Kyle MD at 11:21 EDT , ADDENDUM: 07/27/21 1128 IMPRESSION: Stable 70% stenosis of the proximal right internal carotid artery. No intracranial stenosis, occlusion or aneurysm. N.B. : The above Results were Read Back by Daniel Kyle MD to Wilver Hollingsworth MD, and understanding confirmed on 07/27/2021 11:18:14 (ET). Electronically Signed: Daniel Kyle MD at 11:21 EDT , Cervical Spine CT 07/27/21 10:28 IMPRESSION: No acute abnormality. Prominent diffuse spondylosis. Electronically Signed: Daniel Kyle MD at 11:31 EDT , Rhythm Strip Rhythm Strip: Sinus Rhythm Rate: 85 Ectopy: None Physical Exam Const alert and oriented x3 Constitutional Narrative: much more alert and communicative today HEENT normocephalic, head/scalp atraumatic and hearing grossly normal bilaterally Mouth: oral and palatal mucosa normal Eyes PERRL, EOMs intact bilaterally and conjunctivae normal Neck no lymphadenopathy, supple and no JVD Resp normal respiratory effort, no retractions, no use of accessory muscles and clear to auscultation bilaterally Cardio regular rate, regular rhythm, S1 normal heart sound, S2 normal heart sound and no murmurs GI normal to inspection, nondistended, normoactive bowel sounds, soft to palpation, non-tender and non-distended Extremity normal to inspection and full ROM Neuro oriented x3, CN's II-XII intact bilaterally and moves all extremities Neuro Narrative: mild LUE weakness (4/5). power 5/5 in all other extremities Sensorium / Orientation: awake and alert Speech: speech normal Psych affect normal Assessment & Plan Assessment/Plan (1) Left hand weakness: (2) Fall: (3) Hyperglycemia due to diabetes mellitus: (4) Hypokalemia: PLAN: Plan #left sided weakness due to recent mechanical fall * in light of persistent left sided weakness, CT of the brain was done to rule out a stroke, which was negative. * CTA of the head and neck showed chronic 70% right sided internal carotid artery stenosis * MRI of the brain pending- IV ativan 1mg x 1 prior to MRI due to claustrophobia * PT/OT On board * fall precautions * speech therapy on board due to dysphagia. * on high intensity statin * #Hypokalemia: potassium is 2.7 today. Will replace aggressively and trend. Check magnesium level #Hyponatremia * resolved. Sodium is 137 today * #Type 2 diabetes mellitus with hyperglycemia * blood sugar is 249 today. * on NPH insulin 70/30 10 units bid which is on hold as he is NPO * ISS. Accuchecks q6hrly whilst nPO * #RIght sided carotid stenosis * has chronic 70% stenosis of right carotid artery. * high intensity statin * will benefit from vascular surgery follow up on outpatient basis * #Hyperlipidemia: on statin #EBONY and COPD: on breathing treatment with bronchodilators. CPAP qhs #Hypertension: on HCTZ. metoprolol and lisinopril #Depression; on sertraline DVT prophylaxis: SCDs Code status: full code * Charges/Coding Visit Charges Inpatient E&M: 25023 Subs Hosp L2
[2021-07-28] MEDS: LORazepam 2 MG/ML Syringe 1 MG IV ×2 (09:50→10:10)
[2021-07-28] MEDS: 0.9% Saline Lock 10 ML Syringe IV ×2 (09:50→13:48)
--- NOTE | 2021-07-28 09:52 | MRI_ITS ---
EXAM: MR HEAD WITHOUT INTRAVENOUS CONTRAST CLINICAL INDICATION: Left arm weakness. TECHNIQUE: Multiplanar and multisequence MR images of the brain were obtained without intravenous contrast. This report was created using [employer] report generation technology. COMPARISON: CT head without contrast 07/27/2021. FINDINGS: BRAIN AND EXTRA-AXIAL SPACES: No diffusion restriction to suspect acute or subacute ischemic infarct. Periventricular white matter T2 FLAIR hyperintensity foci in both cerebral hemispheres are confluent in the forceps major. No midline shift and no mass effects. Old lacunar cystic infarct in the right centrum semiovale and in the left anterior periventricular white matter. No intra- or extra-axial hemorrhage. Posterior fossa structures are unremarkable. No hydrocephalus. Basal cisterns are patent. SELLA: Unremarkable. Normal sella turcica, pituitary gland, infundibular stalk, optic chiasm and hypothalamus. AUDITORY SYSTEM: Unremarkable. The internal auditory canals are patent. BONES/JOINTS: Unremarkable. No discrete lytic or blastic abnormalities. SINUSES: Unremarkable as visualized. Clear. MASTOID AIR CELLS: Unremarkable as visualized. Clear. ORBITS: Unremarkable as visualized. Both globes, extraocular muscles, optic nerves and retrobulbar fat appear unremarkable. VASCULATURE: Unremarkable as visualized. Normal flow voids in the major intracranial circulation. MRI/Brain without Contrast IMPRESSION: 1. No MRI evidence of acute or subacute ischemic infarct or acute intracranial abnormality. 2. Chronic white matter ischemic changes in both cerebral hemispheres. 3. 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 Electronically Signed: Trav Negrete MD at 11:21 EDT ,
--- NOTE | 2021-07-28 11:00 | NURSING ---
Returned from MRI scan. Pulse ox on room air at beginning of MRI 88% oxygen applied at 4l/nc. During MRI pulse ox 96%-98% on 4l oxygen. MRI stopped x1 due to restlessness and then resumed. Scan not fully completed d/t restlessness.
[2021-07-28 11:16] LABS: Bedside Glucose 148 mg/dL (74-106)
--- NOTE | 2021-07-28 15:40 | CASEMGMT ---
SANDY OSUNA NOTE: Reviewed therapy's notes. Additional therapy recommended. SANDY OSUNA spoke w/therapy who states feels pt would be safe to return home and felt HHC or OP therapy would be beneficial. Placed call to pt's room. answered. She states she is interested in [facility] for pt. She was made aware ENRRIQUE would provide a list of local HHC agencies tomorrow for them to review. She voices appreciation. She states they do have a walker available for pt. Kenzie VILLA RN, CM
[2021-07-28 16:56] LABS: Bedside Glucose 286 mg/dL (74-106)
[2021-07-28] MEDS: Metoprolol Tartrate 50 MG Tablet PO (21:36)
[2021-07-28 21:46] LABS: Bedside Glucose 275 mg/dL (74-106)
[2021-07-29] VITALS (11 sets, daily range): BP systolic 130–180; BP diastolic 75–116; PULSE 70–79; RESP 18; TEMP 36.5–36.7; O2SAT 91–97
[2021-07-29] MEDS: Acetaminophen 325 MG Tablet 650 MG PO ×2 (01:02→10:53)
[2021-07-29] MEDS: Methadone 10 MG Tablet PO ×2 (03:25→15:40)
[2021-07-29 05:57] LABS: Absolute Lymphocyte Count 2.03 X10^3/uL (0.83-4.51); Absolute Neutrophil Count 5.1 X10^3/uL (2.0-7.7); Basophil# 0.09 X10^3/uL; Basophil% 1.1 % (0-1); Eosinophil# 0.19 X10^3/uL; Eosinophils% 2.3 % (0-5); Hematocrit 48.9 % (40-54); Lymphocyte # 2.03 X10^3/ul (0.83-4.51); Lymphocyte % 24.1 % (19-41); Mean Corp Hgb Conc 34.8 g/dL (32-36); Mean Corpuscular Hgb 32.8 pg (27.0-32.0); Mean Corpuscular Volume 94.2 fL (80-94); Mean Platelet Vol. 10.8 fl (6.2-12.0); Monocyte# 1.03 X10^3/uL; Monocyte% 12.2 % (0-10); NRBC Flagged by Analyzer 0 % (0-5); Neutrophil # 5.07 X10^3/uL (2.7-7.7); Neutrophil % 59.9 % (47-70); Platelet Count 194 K/mm3 (150-450); RBC Distribution Width CV 12.6 % (11.6-14.6); RBC Distribution Width SD 43.5 fl (35.1-43.9); Red Blood Count 5.19 M/mm3 (4.6-6.2); White Blood Count 8.4 K/mm3 (4.4-11.0)
[2021-07-29 06:22] LABS: Anion Gap 7 (5-15); BUN 17 mg/dL (7-18); BUN/Creat Ratio 16.7 RATIO (10-20); Calcium,Total 9.6 mg/dL (8.5-10.1); Chloride 101 mmol/L (98-107); Creatinine, Serum 1.02 mg/dL (0.70-1.30); EST Glomerular Filtration Rate 78 mL/min (>60); Est Glom Filt Rate - Afr Amer 94 mL/min (>60); Estimated Creatinine Clearance 73.56 ml/min; Glucose 295 mg/dL (74-106); Potassium 3.1 mmol/L (3.5-5.1); Sodium Level 134 mmol/L (136-145)
[2021-07-29] MEDS: Potassium Chloride Oral Tablet 20 MEQ 40 MEQ PO (07:04)
[2021-07-29] MEDS: Insulin Human 75/25 Kwickpen 14 UNIT SC (08:06)
[2021-07-29] MEDS: Insulin Lispro 100 UNIT/ML INSULN.PEN SC ×2 (08:07→11:37)
[2021-07-29] MEDS: Aspirin E.C. 81 MG Tablet PO (08:08)
[2021-07-29 08:15] LABS: Bedside Glucose 309 mg/dL (74-106)
[2021-07-29] MEDS: hydroCHLOROthiazide 25 MG Tablet PO (10:53)
[2021-07-29] MEDS: Metoprolol Tartrate 50 MG Tablet PO (10:54)
[2021-07-29] MEDS: Sertraline 100 MG Tablet 150 MG PO (10:54)
[2021-07-29] MEDS: Lisinopril 40 MG Tablet PO (10:54)
--- NOTE | 2021-07-29 11:30 | CASEMGMT ---
Addendum entered by Twan Cabrera 07/29/21 13:50: 1315: Dr Kramer informed RN CM that pt told him he wears oxygen @ home. RN CM back to room to talk w/pt. Pt initially stated he does not remember what company the oxygen is from. Upon further discussion, pt states he remembered an it is through Hospice. RN CM inquired if pt is on Hospice. He states, No, my is and we're using the same. RN CM inquired if pt has his own oxygen. He states he does not, that he has just been using his 's. RN CM informed him Home O2 amb testing would be completed prior to discharge to see if he qualifies for home O2 and if he does, RN CM would set him up with his own oxygen. Pt voices understanding. Pt states they have a pulse ox @ home. RN ENRRIQUE inquired if he had made a decision on HHC. He states, I don't want to get it right now. He denies having any further discharge planning needs or concerns. 1400: Home O2 testing has been completed. Pt does not qualify for Home O2. Kenzie DORANN SANDY CM Original Note: RN CM SENIOUR INSIGHT MANAGER CM to room to meet with patient for initial transition planning/care coordination assessment. RN ENRRIQUE introduced self and role at [facility].? Pt voices understanding and consents to assessment at this time.? Pt sitting up in no distress at this time.? @ bedside. Pt is A/O at this time and answers all questions appropriately.?? Care providers, pharmacy, and demographics verified/updated at this time. PCP: Dr Starr Specialists: none [facility]erred [facility]acy[facility] Prescription Benefit:?Yes LNOK: Mireille Living Arrangements: Lives w/ in one-story home w/one step to enter. Pt able to bath/dress himself mostly, but does assist as needed. Pt does home mgmt tasks. Hire cleaner signs once a week. Transportation:?Pt and DME: ?States has the following DME:?shower chair, RTS, cane, grab bars. Walker is available, but does not have wheels. and pt state they would like to get one w/wheels. Provided w/list of local DME companies. They have no preference. Pt has a glucometer that they paid for [id number]. requests to get another one through insurance. Pt and state no need for further DME at this time.? HHC/SNF: No hx of either. voiced interest in HHC to RN ENRRIQUE yesterday and states again today she thinks pt would benefit from it, but states will leave the decision up to pt. SANDY OSUNA discussed HHC w/pt. Questions answered. Pt states he wants to think about it. Pt and provided with list of? providers including quality and resource use data and consistent with the patient's preferred geographic region, medical needs, and insurance network. and pt made aware, if pt decides not go have HHC @ d/c and if he decides once he return home that he would like to get it, to discuss this w/his PCP. They voice understanding. Pt wishes to return home and states has no concerns with going home at time of discharge.? Pt does not drink ETOH. He smokes 1/2 PPD. CM to follow for home oxygen needs and any further discharge planning/needs.? Pt and voice no further concerns/needs at this time.? Advised them to ask for CM if any further questions/concerns/needs arise.? They voice understanding. PLAN:??Home w/spousal support and discharge plans in place, and possible HHC. Kenzie VILLA RN, CM
[2021-07-29 11:46] LABS: Bedside Glucose 339 mg/dL (74-106)
--- NOTE | 2021-07-29 13:51 | CASEMGMT ---
Per Esther RN, pt does not qualify for home oxygen at this time. [facility] [place] [facility] [place] and glucometer script to be provided with pt d/c instructions. Call to be [place] to [facility] to [place] of [place] for WW. Aureliano DELGADO CM
--- NOTE | 2021-07-29 14:41 | DCINST_ITS ---
Discharge Instructions Diet Discharge Diet: 1800 Calorie Control Diet Activity Discharge Activity: Return to Normal Activity Weight Bearing Status: Full weight bearing Follow Up Care Test Results: Test results from this visit will be discussed in further detail at your follow- up appointment, if applicable. Discharge Plan Admission Admit Date/Time: 07/28/21 15:42 Primary Reason for Your Visit: left upper extremity weakness Attending Provider: Narendra Kramer Primary Care Provider: Luis Starr Consulting Providers: Margaret Bahena Discharge Orders/Prescriptions Prescriptions: New potassium chloride 20 mEq tablet extended release 20 meq PO BID Qty: 60 0RF Continued albuterol sulfate 90 mcg/actuation HFA aerosol inhaler 2 puff INHALATION Q4H PRN (Reason: sob) 16 Days Qty: 18 Label Comments: Inhale 2 Puffs as instructed every 4 hours as needed for Wheezing/Shortness of Breath. hydrochlorothiazide 25 mg tablet 25 mg PO DAILY Qty: 90 Label Comments: TAKE 1 TABLET BY MOUTH EVERY DAY cholecalciferol (vitamin D3) 1,250 mcg (50,000 unit) capsule 1,250 mcg PO QWEEK Qty: 12 Rx Instructions: takes on sundays acetaminophen 500 mg tablet 500 mg PO Q4H PRN (Reason: Headache) gabapentin 600 mg tablet 600 mg PO TID lisinopril 40 mg tablet 40 mg PO DAILY aspirin [Adult Low Dose Aspirin] 81 mg tablet,delayed release (DR/EC) 81 mg PO DAILY insulin NPH and regular human 100 unit/mL (70-30) insulin pen 14 unit subcut BID Rx Instructions: 10 units BID with meals nitroglycerin 0.4 MG tablet, sublingual 0.4 mg sublingual PRN PRN (Reason: pain) Label Comments: chest pain methadone 10 mg tablet 10 mg PO BID PRN (Reason: Pain) Label Comments: pain metoprolol tartrate 50 MG tablet 50 mg PO BID sertraline 100 mg tablet 150 mg PO DAILY Rx Instructions: Take with 50 mg tab to = 150 mg daily Referrals / Follow Up: Luis Starr DO [Primary Care Provider] - Within 2 Weeks Disposition Disposition (needs filled in before D/C Order can be placed): Home, Self Care
--- NOTE | 2021-07-29 17:19 | PCM.DC.SUM ---
Providers Date of Admission: 07/28/21 Date of Discharge: 07/29/21 Primary Care Physician: Dr. Luis Starr DO Reason For Visit: left sided weakness, mechanical fall Diagnosis Discharge Diagnosis (1) Left hand weakness: Status: Acute Code(s): R29.898 - Other symptoms and signs involving the musculoskeletal system (2) Fall: Status: Acute Code(s): W19.XXXA - Unspecified fall, initial encounter (3) Hyperglycemia due to diabetes mellitus: Status: Acute Code(s): E11.65 - Type 2 diabetes mellitus with hyperglycemia (4) Hypokalemia: Status: Acute Code(s): E87.6 - Hypokalemia Plan 1. Left upper extremity weakness-etiology unclear #2 hypokalemia-secondary to diuretic usage #3 type 2 diabetes-uncontrolled #4 essential hypertension #5 hyperlipidemia #6 chronic obstructive pulmonary disease Medications at Discharge Home Medications nitroglycerin 0.4 mg sublingual tablet 0.4 mg sublingual PRN PRN pain 04/23/16 metoprolol tartrate 50 mg tablet 50 mg PO BID heart rate 07/10/18 albuterol sulfate 90 mcg/actuation aerosol inhaler 2 puff inhalation Q4H PRN sob 16 days #18 grams 07/19/18 hydrochlorothiazide 25 mg tablet 25 mg PO DAILY diuretic #90 tabs 08/10/18 acetaminophen 500 mg tablet 500 mg PO Q4H PRN Headache 08/02/20 aspirin 81 mg tablet,delayed release (Adult Low Dose Aspirin) 81 mg PO DAILY heart health 08/02/20 cholecalciferol (vitamin D3) 1,250 mcg (50,000 unit) capsule 1,250 mcg PO QWEEK supplement #12 caps 08/02/20 gabapentin 600 mg tablet 600 mg PO TID nerve pain 08/02/20 insulin NPH-regular 70-30 U-100 insulin 100 unit/mL subcutaneous pen 14 unit subcut BID 08/02/20 lisinopril 40 mg tablet 40 mg PO DAILY blood pressure 08/02/20 methadone 10 mg tablet 10 mg PO BID PRN Pain 08/02/20 sertraline 100 mg tablet 150 mg PO DAILY mental health 08/02/20 potassium chloride 20 mEq tablet,extended release 20 meq PO BID #60 tabs 07/29/21 Hospital Course Operations None Procedures 2-D Echocardiogram Summary of Care Provided Minutes Spent on Discharge: 31 Hospital Course: This 66-year-old white male was seen in the emergency room at [facility] with chief complaint of weakness to his left upper extremity. Patient had a recent fall at home and struck the back of his head against a wall. Examination of the patient in the emergency room showed him to have an NIH score of 2, he had a weakness of 4 out of 5 in his left hand compared to his right. Patient had labs which showed an unremarkable CBC, chemistry panel showed a sodium of 132, potassium of 2.9, BUN of 20, and a creatinine of 1.3. Glucose was elevated at 477, CAT scan of the brain showed chronic changes only no acute process was noted, CAT scan of the cervical spine showed no trauma. CTA of the head and neck showed a stable 70% stenosis of the proximal right internal carotid artery, no aneurysm or intracranial stenosis was noted to be present. Patient was admitted to PCU, echocardiogram was obtained which showed no abnormality. Patient underwent an MRI of the brain which showed no evidence of stroke. Patient was seen and evaluated by PT as well as speech therapy, additional physical therapy was recommended as an outpatient but patient refused. Patient was given a prescription for wheeled walker at home and a glucometer, he did not qualify for home oxygen. On 07/29/2021, patient was seen and examined: On examination he appeared in good health and spirits. Vital signs as documented. Skin warm and dry and without overt rashes. Neck without JVD, neck was supple, trachea midline, thyroid was normal. Lungs clear bilaterally, normal air movement was noted. Heart exam notable for regular rhythm, normal sounds and absence of murmurs, rubs or gallops. Abdomen unremarkable and without evidence of organomegaly, masses, or abdominal aortic enlargement. Bowel sounds are present, abdomen is not distended. Extremities nonedematous, no cyanosis was noted, no clubbing was noted. Neuro: Cranial nerves II through XII are grossly intact, no focal motor deficits were noted, sensation to light touch and pinprick intact, motor exam 5/5 throughout. Psych: Patient is alert and oriented x3, he does not appear anxious or depressed, he does not appear agitated. Patient appears stable for discharge home on 07/29/2021. Weight / BMI Weight Weight: 95.2 kg Body Mass Index (BMI) 30.1 ABG / Lab / Microbiology Data Result Diagrams: 07/29/21 05:51 07/29/21 05:51 Laboratory: Laboratory Results - last 24 hr 07/28/21 21:35: POC Glucose 275 H 07/29/21 05:51: WBC 8.4, RBC 5.19, Hgb 17.0 H, Hct 48.9, MCV 94.2 H, MCH 32.8 H, MCHC 34.8, RDW Std Deviation 43.5, RDW Coeff of Khris 12.6, Plt Count 194, MPV 10.8, Immature Gran % (Auto) 0.400, Neut % (Auto) 59.9, Lymph % (Auto) 24.1, Bucks % (Auto) 12.2 H, Eos % (Auto) 2.3, Baso % (Auto) 1.1 H, Absolute Neuts (auto) 5.1, Absolute Lymphs (auto) 2.03, Nucleated RBC % 0 07/29/21 05:51: Sodium 134 L, Potassium 3.1 L, Chloride 101, Carbon Dioxide 26.0, Anion Gap 7, BUN 17, Creatinine 1.02, Estim Creat Clear Calc 73.56, Est GFR (MDRD) Af Amer 94, Est GFR (MDRD) Non-Af 78, BUN/Creatinine Ratio 16.7, Glucose 295 H, Calcium 9.6 07/29/21 08:04: POC Glucose 309 H 07/29/21 11:32: POC Glucose 339 H Radiography Diagnostic Testing: Radiology Impression Echocardiogram 07/27/21 14:14 Interpretation Summary Normal LV size. Moderate concentric left ventricular hypertrophy. Left ventricular systolic function is normal. The estimated ejection fraction is 65 %. Stage 1 diastolic dysfunction. Bubble contrast study negative for right to left interatrial shunt. Small pericardial effusion. There are no echocardiographic indications of cardiac tamponade. Contrast injection was performed. Ordering Physician: Margaret Bahena Referring Physician: Luis Starr Performed By: Ying Palacios RDCS D/C Instructions Discharge Diet: 1800 Calorie Control Diet Weight Bearing Status: Full weight bearing Meaningful Use Info Meaningful Use Diagnoses (Choose all that apply): None applicable Discharge Plan Admission Admit Date/Time: 07/28/21 15:42 Primary Reason for Your Visit: left upper extremity weakness Attending Provider: Narendra Kramer Primary Care Provider: Luis Starr Consulting Providers: Margaret Bahena Discharge Orders/Prescriptions Prescriptions: New potassium chloride 20 mEq tablet extended release 20 meq PO BID Qty: 60 0RF Continued albuterol sulfate 90 mcg/actuation HFA aerosol inhaler 2 puff INHALATION Q4H PRN (Reason: sob) 16 Days Qty: 18 Label Comments: Inhale 2 Puffs as instructed every 4 hours as needed for Wheezing/Shortness of Breath. hydrochlorothiazide 25 mg tablet 25 mg PO DAILY Qty: 90 Label Comments: TAKE 1 TABLET BY MOUTH EVERY DAY cholecalciferol (vitamin D3) 1,250 mcg (50,000 unit) capsule 1,250 mcg PO QWEEK Qty: 12 Rx Instructions: takes on sundays acetaminophen 500 mg tablet 500 mg PO Q4H PRN (Reason: Headache) gabapentin 600 mg tablet 600 mg PO TID lisinopril 40 mg tablet 40 mg PO DAILY aspirin [Adult Low Dose Aspirin] 81 mg tablet,delayed release (DR/EC) 81 mg PO DAILY insulin NPH and regular human 100 unit/mL (70-30) insulin pen 14 unit subcut BID Rx Instructions: 10 units BID with meals nitroglycerin 0.4 MG tablet, sublingual 0.4 mg sublingual PRN PRN (Reason: pain) Label Comments: chest pain methadone 10 mg tablet 10 mg PO BID PRN (Reason: Pain) Label Comments: pain metoprolol tartrate 50 MG tablet 50 mg PO BID sertraline 100 mg tablet 150 mg PO DAILY Rx Instructions: Take with 50 mg tab to = 150 mg daily Referrals / Follow Up: Luis Starr DO [Primary Care Provider] - Within 2 Weeks Disposition Disposition (needs filled in before D/C Order can be placed): Home, Self Care Charges/Coding Visit Charges Inpatient E&M: 46381 Disch Hosp
== END 2021-07-29 15:55 | disposition home or self-care (01) | DRG 425 ==
LOC: ED 12:12 → PCU 12:47
PROVIDERS: Admitting Provider Student in an Organized Health Care Education/Training Program; Emergency Provider Emergency Medicine; PCP Student in an Organized Health Care Education/Training Program; Visit Provider Internal Medicine
DX: E87.6 Hypokalemia (principal); I13.0 Hypertensive heart and chronic kidney disease with heart failure and stage 1 through stage 4 chronic kidney disease, or unspecified chronic kidney disease; E11.22 Type 2 diabetes mellitus with diabetic chronic kidney disease; I50.9 Heart failure, unspecified; S09.90XA Unspecified injury of head, initial encounter; J44.9 Chronic obstructive pulmonary disease, unspecified; E11.65 Type 2 diabetes mellitus with hyperglycemia; Z79.4 Long term (current) use of insulin; E87.1 Hypo-osmolality and hyponatremia; W19.XXXA Unspecified fall, initial encounter; N18.9 Chronic kidney disease, unspecified; M48.02 Spinal stenosis, cervical region; E78.5 Hyperlipidemia, unspecified; G47.33 Obstructive sleep apnea (adult) (pediatric); F17.210 Nicotine dependence, cigarettes, uncomplicated; I65.21 Occlusion and stenosis of right carotid artery; I25.10 Atherosclerotic heart disease of native coronary artery without angina pectoris; R29.898 Other symptoms and signs involving the musculoskeletal system; G89.29 Other chronic pain; Z66 Do not resuscitate; F32.A Depression, unspecified; Z51.5 Encounter for palliative care
CPT/HCPCS: 36415; 70450; 70496; 70498; 70551; 71045; 72125; 80048; 80061; 82009; 82962; 84484; 85025; 85610; 85730; 92523; 92526; 92610; 93005; 93306; 94762; 97162; 97166; 97530; 97802; 99285; 99406; J7030; J7040; Q9957; Q9967; A4216; C8929; J2785

== ENCOUNTER 2023-12-21 13:51 | Inpatient (IN) | payer MEDICARE, MEDICAID, SELFPAY ==
[2023-12-21] VITALS (24 sets, daily range): BP systolic 111–221; BP diastolic 55–107; PULSE 66–85; RESP 12–27; TEMP 36.1–36.5; O2SAT 73–100; BMI 27.9; BMI 19.5
--- NOTE | 2023-12-21 14:13 | RAD_ITS ---
STUDY: X-RAY CHEST REASON FOR EXAM: Male, 68 years old. Respiratory failure, hypoxia TECHNIQUE: AP and lateral views of the chest. COMPARISON: Comparison is made with prior study dated July 27, 2021. FINDINGS: EKG electrodes are seen. Passive congestion and CHF. Small left pleural effusion with left basilar atelectasis and/or infiltration. There is moderate cardiac enlargement. Normal mediastinum and lily. Normal visualized pulmonary arteries. There is atherosclerotic calcification of the aortic arch with tortuosity. There are diffuse degenerative changes of the visualized thoracic spine. Increased kyphosis. Normal visualized ribs, clavicles, and shoulders. There is no demonstrated abnormality of the visualized soft tissue structures of the upper abdomen. RAD/Chest PA and Lateral IMPRESSION: Cardiomegaly and CHF. Small left pleural effusion with left basilar atelectasis. Electronically Signed: Ruslan Odell MD at 14:49 EST ,
--- NOTE | 2023-12-21 14:13 | EKG12_ITS ---
Test Reason : SOB Blood Pressure : */* mmHG Vent. Rate : 86 BPM Atrial Rate : 86 BPM P-R Int : 160 ms QRS Dur : 94 ms QT Int : 406 ms P-R-T Axes : 23 -19 35 degrees QTcB Int : 485 ms Normal sinus rhythm Prolonged QT Abnormal ECG Confirmed by YINA GRAVES MD ([id number]), video tape editor WERNER CABALLERO ([id number]) on 12/22/2023 6:40:38 AM Referred By: ANTHONY Confirmed By: YINA GRAVES MD
[2023-12-21 14:29] LABS: Hematocrit 26.9 % (40-54); Hemoglobin 8.6 g/dL (13.0-16.5); Mean Corpuscular Hgb 32.1 pg (27.0-32.0); Mean Corpuscular Volume 100.4 fL (80-94); Mean Platelet Vol. 9.9 fl (6.2-12.0); Platelet Count 212 K/mm3 (150-450); RBC Distribution Width CV 15.1 % (11.6-14.6); Red Blood Count 2.68 M/mm3 (4.6-6.2); White Blood Count 9.2 K/mm3 (4.4-11.0)
[2023-12-21 14:56] LABS: ALB/GLOB Ratio 0.8 RATIO (0.9-2.4); AST(SGOT) 13 U/L (15-37); Alanine Aminotransfer ALT/SGPT 14 U/L (16-61); Albumin, Serum 3.1 g/dL (3.2-5.0); Alkaline Phosphatase 99 U/L (45-117); Anion Gap 8 (5-15); BUN 54 mg/dL (7-18); BUN/Creat Ratio 17.6 RATIO (10-20); Calcium,Total 8.7 mg/dL (8.5-10.1); Chloride 107 mmol/L (98-107); Creatinine, Serum 3.07 mg/dL (0.70-1.30); EST Glomerular Filtration Rate 22 mL/min (>60); Est Glom Filt Rate - Afr Amer 26 mL/min (>60); Estimated Creatinine Clearance 26.55 ml/min; Globulin 3.7 g/dL (2.2-4.2); Glucose 116 mg/dL (74-106); Potassium 4.1 mmol/L (3.5-5.1); Protein, Total 6.8 g/dL (6.4-8.2); Sodium Level 136 mmol/L (136-145)
--- NOTE | 2023-12-21 15:09 | EDS_ITS ---
HPI History of Present Illness Chief Complaint: Weakness Detail of Chief Complaint: History is limited to what the is able to tell me. Informant: spouse/S.O. Onset/Context/Timing Onset: Yesterday Context: Gradual Onset Timing: Continuous Quality: Shortness of breath, decreased level of consciousness Location: called squad to transport him from their residence. Current Severity: Moderate Maximum Severity: Severe Worsened by: Unknown Relieved by: Nothing Associated Symptoms Associated Symptoms: Unknown Narrative Narrative: patient is a 68-year-old male he is a smoker. He does have history of obstructive sleep apnea as well as COPD. There is also history of essential hypertension, hyperlipidemia and diabetes mellitus. There is a history of pericardial effusion documented June 2020. History is limited. The only thing that patient would acknowledges that he is short of breath. states he is obstinate and refused transport. She had him transported a because she could not get him to move and she was concerned. Prior similar symptoms: No Recent Illness/Hospitalization: No [facility] Medical History Acute respiratory failure Acute respiratory failure with hypoxia and hypercapnia Adjustment disorder Altered mental status Anxiety Calcification of kenaitze coronary artery Cardiomegaly Carotid artery stenosis Chronic kidney disease (CKD) Chronic pain Chronically on opiate therapy Congestive heart failure (CHF) COPD (chronic obstructive pulmonary disease) Depression Encephalopathy Essential (primary) hypertension History of sepsis HLD (hyperlipidemia) Insomnia Kidney stones Migraines Nicotine dependence Opiate dependence Orthopnea EBONY and COPD overlap syndrome Pericardial effusion (06/2020) Pleural effusion Right arm weakness Smoker Stenosis of right carotid artery Type 2 diabetes mellitus Type 2 diabetes mellitus without complication Home Medications ?Medication ?Instructions ?Recorded ?Last Taken ?Type nitroglycerin 0.4 mg sublingual 0.4 mg sublingual PRN PRN pain 04/23/16 09/15/16 History tablet metoprolol tartrate 50 mg tablet 50 mg PO BID heart rate 07/10/18 12/20/23 History albuterol sulfate 90 mcg/actuation 2 puff inhalation Q4H PRN sob 16 07/19/18 12/20/23 History aerosol inhaler days #18 grams hydrochlorothiazide 25 mg tablet 25 mg PO DAILY diuretic #90 tabs 08/10/18 12/20/23 History acetaminophen 500 mg tablet 500 mg PO Q4H PRN Headache 08/02/20 07/25/21 History aspirin 81 mg tablet,delayed 81 mg PO DAILY heart health 08/02/20 12/20/23 His tory release (Adult Low Dose Aspirin) cholecalciferol (vitamin D3) 1,250 1,250 mcg PO QWEEK supplement #12 08/02/20 12/20/23 History mcg (50,000 unit) capsule caps gabapentin 600 mg tablet 600 mg PO TID nerve pain 08/02/20 12/20/23 History insulin NPH-regular 70-30 U-100 14 unit subcut BID 08/02/20 12/20/23 History insulin 100 unit/mL subcutaneous pen lisinopril 40 mg tablet 40 mg PO DAILY blood pressure 08/02/20 12/20/23 History methadone 10 mg tablet 10 mg PO BID PRN Pain 08/02/20 12/20/23 History sertraline 100 mg tablet 150 mg PO DAILY mental health 08/02/20 12/20/23 History potassium chloride 20 mEq 20 meq PO BID #60 tabs 07/29/21 12/20/23 Rx tablet,extended release amitriptyline 50 mg tablet 50 - 100 mg PO QHS 12/21/23 12/20/23 History cyclobenzaprine 10 mg tablet 10 mg PO TID PRN PRN muscle spasm 12/21/23 Unknown History sertraline 50 mg tablet 150 mg PO DAILY 12/21/23 12/20/23 History Allergy/AdvReac Type Severity Reaction Status Date / Time No Known Allergies Allergy Verified 12/21/23 14:03 Family History Uncle Myocardial infarction Father Diabetes Melanoma Cancer bladder Mother Diabetes Heart disease Grandfather Parkinson's disease Grandmother Breast cancer Surgical History History of cholecystectomy (09/17/12) History of fusion of cervical spine History of repair of right rotator cuff History of tonsillectomy Hx of appendectomy (~1962) Social History Smoking Status: Current every day smoker tobacco type: cigarettes Tobacco: How many years used: 20 alcohol intake: never substance use type: does not use EXAM Physical Exam Const Vital Signs: 12/21/23 13:52 12/21/23 13:58 12/21/23 13:58 Temperature 97.7 F L 97.7 F L Temperature Source Oral Oral Pulse Rate 85 85 Respiratory Rate 19 H 19 H Respiratory Effort Labored Respiratory Depth Respiratory Pattern Normal Blood Pressure 150/71 H Blood Pressure Mean 97 Pulse Ox 73 94 Oxygen Delivery Method Room Air Nasal Cannula Oxygen Flow Rate (L/min) 3 Fraction of Inspired Oxygen (FIO2) 12/21/23 15:28 12/21/23 15:30 12/21/23 15:44 Temperature Temperature Source Pulse Rate 79 78 80 Respiratory Rate 16 27 H 16 Respiratory Effort Respiratory Depth Respiratory Pattern Tachypnea Blood Pressure 127/70 H 132/70 H Blood Pressure Mean 89 90 Pulse Ox 96 97 98 Oxygen Delivery Method Nasal Cannula Bi-pap Oxygen Flow Rate (L/min) 4 Fraction of Inspired Oxygen (FIO2) 35 12/21/23 16:04 Temperature Temperature Source Pulse Rate Respiratory Rate Respiratory Effort Labored Accessory Muscle Use Respiratory Depth Shallow Respiratory Pattern Blood Pressure Blood Pressure Mean Pulse Ox Oxygen Delivery Method Oxygen Flow Rate (L/min) Fraction of Inspired Oxygen (FIO2) Positive well nourished and well developed Constitutional Narrative: Decreased level of consciousness with mild respiratory distress. General Appearance ED: well developed and pallor; Negative for cyanotic or diaphoretic HEENT Reports dry mucous membranes HEENT Narrative: Head is atraumatic no cephalic. Ears normal. Nares patent. Posterior pharynx is normal. Mouth ED: Yes dry mucous membranes Mouth: dry mucous membranes Eyes PERRL General Eye ED: Yes pale conjunctiva; Negative for scleral icterus Neck no lymphadenopathy, supple and no JVD Chest Wall inspection of chest normal and palpation of chest normal Resp No normal respiratory effort and No clear to auscultation bilaterally Resp Narrative: Patient has bilateral rales. Decreased breath sounds at the left base. There is dullness to percussion left base. There is no hyperresonance with percussion upper lung toribio to suggest pneumothorax. Cardio regular rate, regular rhythm, S1 normal heart sound, S2 normal heart sound and no murmurs GI normal to inspection, nondistended, normoactive bowel sounds, non-tender and no masses; Negative for non-distended or hepatosplenomegaly GI Narrative: Abdomen slightly distended and tympanitic. Stool is light brown in color. Prostate is normal size. Narrative: exam externally is normal. Extremity Negative for normal to inspection Extremity Narrative: Significant edema with venous stasis dermatitis. Also has a ulcer inferior the lateral malleolus on the right and a larger ulcer noted on the lateral aspect of the left ankle/foot. Neither 1 appears infected. Both are to the subcutaneous tissue. Neuro oriented x3, CN's II-XII intact bilaterally and no sensory deficits noted Sensorium / Orientation: Negative for alert Motor Exam: strength 5/5 throughout Psych mental status grossly normal Skin No no rashes or lesions noted and No no wounds General Skin Exam: jaundice and pallor MDM MDM MDM Narrative Medical decision making narrative: Differential diagnosis respiratory failure is pneumonia, congestive heart failure, aspiration, pulmonary embolus. Clinically I suspect he is fluid overloaded and in congestive heart failure. Because of his history of smoking and decreased level of conscious and question of jaundice and paler will obtain ammonia level, ABG to assess for CO2 retention. CBC was obtained assess H&H since clinically he is anemic with pale conjunctive up. He still has erythema creases of his palms. Also to assess white count differential. BMP to assess renal function. Cardiac ischemia as a possible cause since he had an abrupt change according to over the past 24 hours. Lab Data Attestation: I reviewed the patient's lab results. Lab results narrative: CBC is remarkable for significant drop in his hemoglobin from baseline. MCV is elevated at 100.4 Basic metabolic panel is remarkable for an elevated BUN and creatinine of 54 and 3.07 which are new findings. Glucose is slight elevated 116. CO2 and anion gap are normal. Labs: Laboratory Results - last 24 hr 12/21/23 12/21/23 14:00 14:47 WBC 9.2 RBC 2.68 L Hgb 8.6 L Hct 26.9 L MCV 100.4 H MCH 32.1 H MCHC 32.0 RDW Std Deviation 56.0 H RDW Coeff of Khris 15.1 H Plt Count 212 MPV 9.9 Sodium 136 Potassium 4.1 Chloride 107 Carbon Dioxide 21.0 Anion Gap 8 BUN 54 H Creatinine 3.07 H Estim Creat Clear Calc 26.55 Est GFR (MDRD) Af Amer 26 L Est GFR (MDRD) Non-Af 22 L BUN/Creatinine Ratio 17.6 Glucose 116 H Calcium 8.7 Total Bilirubin 0.30 AST 13 L ALT 14 L Alkaline Phosphatase 99 Ammonia 27.0 Total Protein 6.8 Albumin 3.1 L Globulin 3.7 Albumin/Globulin Ratio 0.8 L ABG Data ABG results: ABG 12/21/23 15:18 Specimen Type ART Sample Site R Radial pH 7.18 L* Bicarbonate Actual 18.8 L Total CO2 20 Base Excess -10 L O2 Saturation 93 L O2 % 4.0 ABG pCO2 50.8 H ABG pO2 85 O2 Delivery Device Cannula Vent Mode Not entered Crit Call To/Read Back Yes Blood Gas Notified Whom haque Blood Gas Notified Time 15:20:06 Radiography Chest X-Ray - ED: 1 View (Single view chest x-ray was obtained postintubation and placement of OG. ET tube is in proper position. OG needs to be advanced 5 to 10 cm. There is evidence of effusion on the left. There is no obvious infiltrate noted. There is no evidence of pneumothorax. There is cardiomegaly. There is fi), 2 View and Read by ED Physician (There is a moderate effusion on the left. X-ray is suboptimal due to poor inspiratory volume which may be due to cooperation since he has a decreased level consciousness. There is also evidence of cardiomegaly and CHF.) Diagnostic Testing: Clinical Impression(s) from Imaging Studies Chest X-Ray 12/21/23 14:13 IMPRESSION: Cardiomegaly and CHF. Small left pleural effusion with left basilar atelectasis. Electronically Signed: Ruslan Odell MD at 14:49 EST , EKG Initial EKG: Attestation: I personally reviewed and interpreted this EKG as follows: Interpretation: Sinus Rhythm (Rate is 86. There is prolonged QT. Parables 160 ms Rickers duration 94 ms. QT and QTc are 406 and 495 ms respecti vely. Lowell is normal. There is no acute ischemic changes noted.) Management Discussion w/another healthcare provider: Hospitalist Treatment and Re-Evaluation :: Will place Lee for accurate I's and O's, administer Lasix since clinically patient is fluid overloaded. Patient became obtunded and spite of BiPAP. was spoken to regarding living will, CODE STATUS and POA. She states she is his and will make decisions. She wishes everything to be done at this point. Procedures Intubations Intubation Method: orotracheal (Patient was preoxygenated. He was treated with 20 mg etomidate followed by 75 mL rocuronium. He was sexually intubated on first attempt. He was intubated using glide scope. A 7.5 Slovak endotracheal tube was placed. Endotracheal tube is 25 cm at the gum.) Intubation Verification: Positive color change and Bilateral breath sounds confirmed Intubation Complications: no complications Critical Care Time Critical Care Time: Yes Critical care time (excluding procedures): 30-74 minutes (37), Including time spent: (History, physical, documentation, bedside treatment,), Discussing w/Patient &/or Family/Hose Handler, Discussing w/Consultants, Arranging Admission or Transfer and Performing Direct Patient Care at Bedside Discharge Plan Dx/Rx/DC Orders Clinical Impression: Acute hypoxemic respiratory failure, HLD (hyperlipidemia), Nicotine dependence, Essential (primary) hypertension, History of diabetes mellitus, Metabolic acidosis, Acute exacerbation of CHF (congestive heart failure), Pleural effusion, left, Acute anemia, Acute kidney injury, Mead coma scale total score 3-8 Disposition Disposition: Acute Care [facility]
[2023-12-21 15:24] LABS: Base Excess -10 mmol/L (-2 to +2); Bicarbonate 18.8 mmol/L (22-26); Blood Gas Specimen Type ART; Mode Not entered; O2 Delivery Device Cannula; PO2 85 mmHG (75-100); SITE R Radial; SO2 93 % (95-99); Total Carbon Dioxide 20 mmol/L; pCO2 50.8 mmHg (35-45); pH 7.18 (7.35-7.45)
[2023-12-21] MEDS: Furosemide 40 MG/4 ML Vial IV ×2 (15:29→21:45)
[2023-12-21] MEDS: Propofol 10MG/Ml 1,000 MG/100 ML Bottle 5.4 MG CONT INF (16:04)
[2023-12-21] MEDS: Rocuronium Bromide 50 MG/5 ML Vial 75 MG IV (16:09)
[2023-12-21] MEDS: Etomidate 20 MG/10 ML Vial IV (16:09)
--- NOTE | 2023-12-21 16:10 | RAD_ITS ---
We are attempting to reach an attending provider to discuss findings. An addendum with communication details will be sent when the communication is complete. STUDY: X-RAY CHEST REASON FOR EXAM: Male, 68 years old. Intubation TECHNIQUE: AP portable COMPARISON: None. FINDINGS: Left lower lobe atelectasis and probable small pleural effusion Heart is enlarged. Normal mediastinum and lily. Normal visualized pulmonary arteries. Mildly calcified aortic arch and descending thoracic aorta. Endotracheal tube noted with tip 3.4 cm proximal to sara. NG tube noted with tip in distal esophagus and should be advanced Dorsal spine and shoulders demonstrate degenerative change. Normal visualized ribs, and clavicles There is no demonstrated abnormality of the visualized soft tissue structures of the upper abdomen. RAD/Chest 1 View (Portable) IMPRESSION: Left lower lobe atelectasis and possible small effusion Status post intubation. NG tube in distal esophagus and should be advanced Electronically Signed: Wilver Buenrostro MD at 16:41 EST Reading Location ID and State: [address] [place] [address] Tel , Service support ,
--- NOTE | 2023-12-21 16:17 | PCM.HP.STD ---
HPI - General General Date of Admission: 12/21/23 Date of Service: 12/21/23 Chief Complaint: Altered mentation and shortness of breath HPI Narrative KENDRA BAILEY, is a 68 M who presented to [facility] ED on 12/21/2023 with altered mentation and worsening shortness of breath. History from patient was limited and majority of history was gathered from patient's . Patient lives at home with his . She notes that he has progressively gotten weaker over the past several weeks. He has also become more short of breath over that timeframe and has been unable to lay flat. Patient has history of heart failure, hypertension, hyperlipidemia and diabetes. notes that she has been helping him with his medications recently and he has been taking most as prescribed. She states that over the past day or so patient has been so weak that he has been unable to get off the floor. She notes that he is obstinate and refused to come to the hospital until she finally called EMS today to come get him. On arrival to the ED patient was noted to be hypoxic and somewhat somnolent. Chest x-ray showed cardiomegaly and probable small left pleural effusion. ABG showed a pH of 7.18 and pCO2 of 50. Given concern for volume overload due to heart failure exacerbation, patient was paced on BiPAP. However, patient became obtunded while BiPAP and required intubation in the ED. Notably, ED physician spoke with prior to intubation and she confirmed that patient was full code. Patient was stable on fairly low oxygen requirements post intubation. Lab workup in the ED was notable for newly diagnosed anemia with hemoglobin 8.6 as well as an CHARLIE with creatinine 3.07 (baseline in 2021 around 1.0) and BUN 54. Per , patient has had normal bowel movements recently with no blood or dark stools. Hospitalist was then contacted for admission. I saw the patient at bedside in the ED, was present. Patient was intubated and sedated and not following commands at that time. noted the above to me and did also notes that patient had restarted his home gabapentin yesterday evening and taken 2 doses of gabapentin yesterday night because he was having difficulty sleeping. He otherwise was taking his home medications as normal. No other acute concerns at this time. Importantly, I saw the patient shortly after he arrived up to the ICU as well. His nurse noted that she had turned his propofol off and he still was not following any commands. He also had what seemed to be rhythmic tongue movements and eye movements concerning for possible seizure activity. He also had elevated blood pressures into the low 200s systolic on multiple reads in the ICU initially. Stat CT head without contrast was obtained and showed no mass or acute bleed. On arrival back to the ICU, patient was noted to be more alert and was able to follow commands. Blood pressure was improved with a dose of IV hydralazine in the edition of fentanyl for sedation. Repeat CBC was obtained and showed a hemoglobin of 9.0, stable from previous. Nurse also noted that patient was having significant urine output with IV Lasix that was given in the ED and again this evening. [facility] Medical History Acute respiratory failure Acute respiratory failure with hypoxia and hypercapnia Adjustment disorder Altered mental status Anxiety Calcification of [place] coronary artery Cardiomegaly Carotid artery stenosis Chronic kidney disease (CKD) Chronic pain Chronically on opiate therapy Congestive heart failure (CHF) COPD (chronic obstructive pulmonary disease) Depression Encephalopathy Essential (primary) hypertension History of sepsis HLD (hyperlipidemia) Insomnia Kidney stones Migraines Nicotine dependence Opiate dependence Orthopnea EBONY and COPD overlap syndrome Pericardial effusion (06/2020) Pleural effusion Right arm weakness Smoker Stenosis of right carotid artery Type 2 diabetes mellitus Type 2 diabetes mellitus without complication Home Medications ?Medication ?Instructions ?Recorded ?Last Taken ?Type nitroglycerin 0.4 mg sublingual 0.4 mg sublingual PRN PRN pain 04/23/16 09/15/16 History tablet metoprolol tartrate 50 mg tablet 50 mg PO BID heart rate 07/10/18 12/20/23 History albuterol sulfate 90 mcg/actuation 2 puff inhalation Q4H PRN sob 16 07/19/18 12/20/23 History aerosol inhaler days #18 grams hydrochlorothiazide 25 mg tablet 25 mg PO DAILY diuretic #90 tabs 08/10/18 12/20/23 History acetaminophen 500 mg tablet 500 mg PO Q4H PRN Headache 08/02/20 07/25/21 History aspirin 81 mg tablet,delayed 81 mg PO DAILY heart health 08/02/20 12/20/23 History release (Adult Low Dose Aspirin) cholecalciferol (vitamin D3) 1,250 1,250 mcg PO QWEEK supplement #12 08/02/20 12/20/23 History mcg (50,000 unit) capsule caps gabapentin 600 mg tablet 600 mg PO TID nerve pain 08/02/20 12/20/23 History insulin NPH-regular 70-30 U-100 14 unit subcut BID 08/02/20 12/20/23 History insulin 100 unit/mL subcutaneous pen lisinopril 40 mg tablet 40 mg PO DAILY blood pressure 08/02/20 12/20/23 History methadone 10 mg tablet 10 mg PO BID PRN Pain 08/02/20 12/20/23 History sertraline 100 mg tablet 150 mg PO DAILY mental health 08/02/20 12/20/23 History potassium chloride 20 mEq 20 meq PO BID #60 tabs 07/29/21 12/20/23 Rx tablet,extended release amitriptyline 50 mg tablet 50 - 100 mg PO QHS 12/21/23 12/20/23 History cyclobenzaprine 10 mg tablet 10 mg PO TID PRN PRN muscle spasm 12/21/23 Unknown History sertraline 50 mg tablet 150 mg PO DAILY 12/21/23 12/20/23 History Allergy/AdvReac Type Severity Reaction Status Date / Time No Known Allergies Allergy Verified 12/21/23 14:03 Family History Uncle Myocardial infarction Father Diabetes Melanoma Cancer bladder Mother Diabetes Heart disease Grandfather Parkinson's disease Grandmother Breast cancer Surgical History History of cholecystectomy (09/17/12) History of fusion of cervical spine History of repair of right rotator cuff History of tonsillectomy Hx of appendectomy (~1962) Social History Smoking Status: Current every day smoker tobacco type: cigarettes Tobacco: How many years used: 20 alcohol intake: never substance use type: does not use ROS Review of Systems ROS Unobtainable: due to endotracheal tube Vital Signs Vital Signs Vital Signs: 12/21/23 13:52 12/21/23 13:58 12/21/23 13:58 Temperature 97.7 F L 97.7 F L Temperature Source Oral Oral Pulse Rate 85 85 Respiratory Rate 19 H 19 H Respiratory Effort Labored Respiratory Pattern Normal Blood Pressure 150/71 H Blood Pressure Mean 97 Pulse Ox 73 94 Oxygen Delivery Method Room Air Nasal Cannula Oxygen Flow Rate (L/min) 3 Fraction of Inspired Oxygen (FIO2) 12/21/23 15:28 12/21/23 15:30 12/21/23 15:44 Temperature Temperature Source Pulse Rate 79 78 80 Respiratory Rate 16 27 H 16 Respiratory Effort Respiratory Pattern Tachypnea Blood Pressure 127/70 H 132/70 H Blood Pressure Mean 89 90 Pulse Ox 96 97 98 Oxygen Delivery Method Nasal Cannula Bi-pap Oxygen Flow Rate (L/min) 4 Fraction of Inspired Oxygen (FIO2) 35 Weight Weight: 90.8 kg Body Mass Index (BMI) 27.9 Physical Exam Const no apparent distress Constitutional Narrative: Intubated and sedated, not following commands. Thin and somewhat cachectic appearing. HEENT normocephalic, head/scalp atraumatic and nasal mucous membranes and turbinates normal Chest inspection of chest normal Resp normal respiratory effort and no use of accessory muscles Resp Narrative: Intubated. Breathing comfortably on mechanical ventilation at low oxygen requirements. Moderately decreased breath sounds in right lung base, otherwise mild crackles noted in mid lungs bilaterally, no wheezing noted. Cardio regular rate, regular rhythm, no murmurs and peripheral pulses 2+ throughout GI normal to inspection, nondistended, normoactive bowel sounds, soft to palpation, non-tender and non-distended Extremity Extremity Narrative: +2-3 lower extremity pitting edema bilaterally noted. Venous stasis dermatitis noted. Also has ulcer on inferior lateral malleolus on right and also noted on lateral aspect of left ankle/foot as well; neither ulcer appears infected. Results Lab / Micro Data 12/21/23 18:25 12/21/23 14:00 Labs: Laboratory Results - last 24 hr 12/21/23 14:00: WBC 9.2, RBC 2.68 L, Hgb 8.6 L, Hct 26.9 L, MCV 100.4 H, MCH 32.1 H, MCHC 32.0, RDW Std Deviation 56.0 H, RDW Coeff of Khris 15.1 H, Plt Count 212, MPV 9.9, Sodium 136, Potassium 4.1, Chloride 107, Carbon Dioxide 21.0, Anion Gap 8, BUN 54 H, Creatinine 3.07 H, Estim Creat Clear Calc 26.55, Est GFR (MDRD) Af Amer 26 L, Est GFR (MDRD) Non-Af 22 L, BUN/Creatinine Ratio 17.6, Glucose 116 H, Calcium 8.7, Total Bilirubin 0.30, AST 13 L, ALT 14 L, Alkaline Phosphatase 99, Total Protein 6.8, Albumin 3.1 L, Globulin 3.7, Albumin/Globulin Ratio 0.8 L 12/21/23 14:47: Ammonia 27.0 Micro: Microbiology 12/21/23 14:47 Mucosa - Nose SARS-CoV-2, Influenza & RSV (PCR) - Final ABG Data ABG results: ABG 12/21/23 15:18 Specimen Type ART Sample Site R Radial pH 7.18 L* Bicarbonate Actual 18.8 L Total CO2 20 Base Excess -10 L O2 Saturation 93 L O2 % 4.0 ABG pCO2 50.8 H ABG pO2 85 O2 Delivery Device Cannula Vent Mode Not entered Crit Call To/Read Back Yes Blood Gas Notified Whom haque Blood Gas Notified Time 15:20:06 Imaging Radiology Impression Chest X-Ray 12/21/23 14:13 IMPRESSION: Cardiomegaly and CHF. Small left pleural effusion with left basilar atelectasis. Electronically Signed: Ruslan Odell MD at 14:49 EST , Assessment & Plan Assessment/Plan (1) Acute hypoxemic respiratory failure: (2) Acute exacerbation of CHF (congestive heart failure): (3) Acute anemia: (4) Acute kidney injury: PLAN: Plan Patient is a 68-year-old male who presented [facility] ED on 12/21/2023 with altered mentation and shortness of breath. 1. Acute hypoxic respiratory failure ? Admit under inpatient status to ICU. Magnetic Prospecting Operator consulted. Chest x-ray on admission with cardiomegaly and left-sided pleural effusion most consistent with CHF exacerbation. Hypoxic on arrival and with altered mentation as noted below. ABG showed pH 7.18, CO2 50, pO2 85 on nasal cannula. Was placed on BiPAP but became obtunded and required intubation in the ED. Stable post intubation on ventilator with low oxygen requirements. Treating CHF exacerbation as noted below. Sedation with propofol and fentanyl as needed. Appreciate further pulmonology recommendations. 2. Acute metabolic encephalopathy ? Unclear etiology, may have been multifactorial from hypoxia with home medications possibly contributing. Currently intubated and sedated as noted above. Notably there was concern for possible seizure activity shortly after arrival to the ICU when sedation was paused. CT head unremarkable. Patient became more alert after sedation was paused for about an hour and was following commands. Initially ordered EEG and teleneurology consult but these were subsequently canceled. 3. CHF exacerbation with left pleural effusion, history of pericardial effusion ? Presentation on admit most consistent with CHF exacerbation. BNP pending. Last echo in 07/2021 showed EF 65%, stage I diastolic dysfunction, moderate concentric LV hypertrophy, small pericardial effusion with no evidence of cardiac tamponade, no other abnormalities. Cardiology recommended follow-up after that hospitalization but patient did not follow through with this. Repeat echo ordered. Has had very good urine output with 2 doses of IV Lasix on day of admission, will continue IV Lasix 40 mg twice daily for now. 4. Acute iron deficiency anemia ? Hemoglobin 8.6 on admit. Last hemoglobin values available were from 2021 and baseline was around 15-17. Repeat hemoglobin this evening of 9.0. No active signs of bleeding noted. reports no dark or bloody bowel movements for patient that she is aware of. Iron studies show low iron, TIBC and iron saturation but normal ferritin. B12 and folate normal. No urgent need for GI consult but will very likely need endoscopic evaluation to rule out indolent GI bleed in the near future. Monitor daily CBC. 5. CHARLIE ? Creatinine 3.07, BUN 54 on admit. Baseline creatinine from 2021 was around 1.0. Suspected that this could be due to cardiorenal syndrome in setting of CHF exacerbation. Patient notably has had very good urine output with IV diuresis to this point. Follow-up a.m. BMP and continue to monitor urine output. Renal ultrasound ordered. Chronic medical conditions: ? Hypertension, history of CAD, history of carotid artery stenosis: Holding home lisinopril and hydrochlorothiazide given CHARLIE as noted above. Continue home Lopressor. Continue home aspirin. ? Type 2 diabetes mellitus: Has history of poorly controlled type 2 diabetes with A1c values consistently in the 11% range from 0089-7589; no values available since then. A1c ordered. Blood glucose 116 on admit. Will start sliding scale insulin every 6 hours while intubated, adjust as needed. ? Anxiety/depression/insomnia: Continue home sertraline and gabapentin. DVT prophylaxis: Heparin subcu CODE STATUS: Full code, verified Expected disposition: TBD Total clinical time spent by myself addressing the patient's medical issues, reviewing all the data, and collaborating with patient's care team: 75 minutes. Charges/Coding Visit Charges Inpatient E&M: 36565 Init Hosp L3
--- NOTE | 2023-12-21 16:18 | ED.RN ---
update given to daughter
[2023-12-21 16:24] LABS: Troponin-I HS 12 pg/mL (3.0-78.0)
--- NOTE | 2023-12-21 16:40 | ECHOD_ITS ---
Reason For Study: CHF Procedure This was a 2D Doppler, Color Flow transthoracic echocardiogram. Patient scanned supine on vent. Exam performed portable in ICU/CCU. Left Ventricle Normal LV size. Moderate concentric left ventricular hypertrophy. Left ventricular systolic function is normal. The left ventricular ejection fraction is 60 %. Stage 1 diastolic dysfunction. No regional wall motion abnormalities noted. Right Ventricle Normal RV size. Normal systolic function. Atria Normal left atrium. Normal right atrium. Mitral Valve There is mild mitral annular calcification. Tricuspid Valve Normal tricuspid valve. Mild (1+) tricuspid valve insufficiency. Pulmonary artery systolic pressure is 35 mmHg. Aortic Valve Moderate focal aortic valve thickening. Pulmonic Valve Normal pulmonic valve. Great Vessels Normal aortic root. The pulmonary artery is normal size. No collapse of the inferior vena cava. Pericardium/Pleural Moderate (1.0-2.0 cm) pericardial effusion. There are no echocardiographic indications of cardiac tamponade. Measures between 1 and 2 cm but posterior to the left ventricle is approximately 2.6 cm. MMode/2D Measurements & Calculations LVIDd: 4.7 cm IVSd: 1.2 cm LVOT diam: 2.3 cm LVIDs: 2.7 cm LVPWd: 1.6 cm LVOT area: 4.0 cm2 RVDd: 4.0 cm FS: 44.0 % Ao root diam: 3.4 cm LAV(MOD-bp): 78.7 ml LVAd ap4: 31.6 cm2 LAV(MOD-bp) Indexed: 38.1 ml/m2 LVLd ap4: 9.2 cm LAV(MOD-sp2): 79.1 ml EDV(MOD-sp4): 92.3 ml LAV(MOD-sp4): 75.5 ml EDV(sp4-el): 92.3 ml LVAs ap4: 17.0 cm2 LVLs ap4: 7.7 cm ESV(MOD-sp4): 32.7 ml ESV(sp4-el): 31.6 ml EF(MOD-sp4): 64.6 % EF(sp4-el): 65.8 % SV(MOD-sp4): 59.6 ml SV(sp4-el): 60.7 ml LA A4 area: 25.2 cm2 SI(MOD-sp4): 28.9 ml/m2 LA dimension(2D): 4.7 cm RA A4 area: 18.7 cm2 TAPSE: 1.7 cm Time Measurements MV dec time: 0.24 sec Doppler Measurements & Calculations MV E max anton: 103.7 cm/sec Lat Peak E' Anton: 8.6 cm/sec Med Peak E' Anton: 5.9 cm/sec MV A max anton: 117.7 cm/sec E/E' lat: 12.0 E/E' med: 17.6 MV E/A: 0.88 MV V2 max: 131.6 cm/sec MV P1/2t max anton: 122.4 cm/sec Ao V2 max: 130.8 cm/sec MV max P.9 mmHg MV P1/2t: 85.6 msec Ao max P.8 mmHg MV V2 mean: 75.0 cm/sec Ao V2 mean: 97.7 cm/sec MV mean P.6 mmHg MV dec slope: 418.9 cm/sec2 Ao mean P.3 mmHg MV V2 VTI: 43.4 cm MVA(P1/2t): 2.6 cm2 Ao V2 VTI: 29.9 cm AV (velocity ratio): 0.93 MVA(VTI): 2.5 cm2 SHAE(I,D): 3.7 cm2 SHAE(V,D): 3.7 cm2 LV V1 max: 120.0 cm/sec SV(LVOT): 110.1 ml PA V2 max: 73.2 cm/sec LV V1 max P.8 mmHg LV V1 mean P.7 mmHg LV V1 mean: 90.6 cm/sec LV V1 VTI: 27.7 cm TR max anton: 262.0 cm/sec TR max P.4 mmHg ECHO/Echo Complete Interpretation Summary Normal LV size. Moderate concentric left ventricular hypertrophy. Left ventricular systolic function is normal. The left ventricular ejection fraction is 60 %. Stage 1 diastolic dysfunction. Measures between 1 and 2 cm but posterior to the left ventricle is approximatel y 2.6 cm Ordering Physician: Elliott Duenas Performed By: Josue Selby RCS
--- NOTE | 2023-12-21 16:44 | CHAPLAIN ---
Type of Pastoral Visit _x__ Initial Visit ___ Follow-up Visit ___ On-call Visit ___ General Patient Visit ___ Spiritual Assessment ___ Family Conference ___ Bereavement ___ Rapid Response ___ Code Blue ___ Other (describe below) Pastoral Care Referral From _x__ Patient ___ Family ___ Nurse ___ Physician ___ Retirement Administrator ___ Computer Processing Scheduler ___ Other (describe below) Sacrament/Intervention _x__ Active listening ___ Anointing ___ Jehovah'S Witness ___ Bereavement ___ Communion _x__ Suzette exploration ___ _x__ Life review _x__ Prayer ___ Reconciliation ___ Sacrament of Sick _x__ Supportive presence ___ Wedding ___ Other (describe below) Pastoral Comments during rounds the java developer with security clearance notified this air traffic coordinator of family in the waiting room who was present for an emergency intubation; met with the who was emotionally upset and sat with her; offered calm presence and listening to concerns; spouse identifies patient as a Confucianism and not affiliated with any baptist community at this time; spouse welcomes prayers; offer to assist spouse with phone calls but she states that a daughter is on the way from [facility] and a brother is on the way from [place]; checked on status of patient a couple of times to give updated information to spouse; then escorted spouse to room at appropriate time; gave emotional support in the room and stayed with spouse until SW came to assess and support
--- NOTE | 2023-12-21 16:51 | ED.RN ---
hospitalist updated on axillary temp of 96.9
--- NOTE | 2023-12-21 17:31 | CM.ED ---
Social Work Reason for referral: ICU admission/intubation Referral source: social work identification This program writer planned on completing initial discharge planning assessment due to patient being admitted to an acute floor. Prior to completing this, patient oxygen levels dropped to the point of needing to be intubated. This SW entered room as patient was lying in bed, intubated, and patient's , Anai, was talking with hospital investor relations manager, Mason. Ray left the room after passing supportive care to this SW. SW provided support to patient's and provided active listening as patient's discussed what led patient to this point. Patient has reportedly been struggling with increased weakness for days and patient's reports fighting with patient last night to bring patient to the hospital, but patient refused. Patient discussed her own health struggles, including spine cancer. SW asked if patient had a HCPOA or living will and patient's said neither she nor the patient does. Patient's daughter, Shawanda, and son-in-law, Dejuan, arrived from [place] and supported patient's . SW answered patient's daughter's questions as appropriate and able. Shawanda and Dejuan have both been added to patient's contact list. Shawanda ([phone]) and Dejuan ([phone]). Patient's brother and qljrku-sn-won, Raffaele and Regina Barron) are reportedly coming in from [place] this evening. Their contact information is unknown due to this being said right as patient and his family were being taken upstairs to the ICU. Plan: Handoff to acute RN CM/SW team to follow as needed; advance directives information to patient and patient's may be necessary. Sierra Blair, FULL TIME PARAMEDIC, ANVIL SEATING PRESS OPERATOR
--- NOTE | 2023-12-21 17:43 | CT_ITS ---
STUDY: CT BRAIN WITHOUT CONTRAST REASON FOR EXAM: Male, 68 years old. Altered mentation RADIATION DOSAGE (If Supplied By Facility): CTDIvol = ( 44.99 ) mGy, DLP = ( 829.85 ) mGycm TECHNIQUE: Transaxial CT imaging of the brain was performed without administration of intravenous contrast material. Individualized dose optimization techniques were used for this CT. COMPARISON: July 27, 2021 FINDINGS: Normal soft tissue structures. Normal calvarium. Calcific plaquing of the cavernous carotids Atrophy and moderate periventricular white matter ischemic changes. Normal basal ganglia and thalami. Normal brainstem. Normal cerebellum. There is no intracranial hemorrhage. There are no findings of an acute ischemic infarction. There is diffuse opacification of left maxillary sinus and mild mucosal thickening of the ethmoid air cells CT/Brain/Head without Contrast IMPRESSION: Atrophy and moderate periventricular white matter ischemic change. No mass or acute bleed. If concern for acute infarct MRI recommended. Electronically Signed: Wilvre Buenrostro MD at 18:30 EST Reading Location ID and State: [facility] / ID Tel , Service support ,
[2023-12-21 18:06] LABS: Ferritin 271 ng/mL (26-388); Iron 21 ug/dL (65-175); Iron Binding Capacity,Total 180 ug/dL (250-450); PERCENT IRON SATURATION 11.7 % (15.0-55.0)
[2023-12-21 18:47] LABS: Bedside Glucose 116 mg/dL (74-106)
[2023-12-21 18:51] LABS: Hematocrit 27.4 % (40-54); Mean Corp Hgb Conc 32.8 g/dL (32-36); Mean Corpuscular Hgb 32.6 pg (27.0-32.0); Mean Corpuscular Volume 99.3 fL (80-94); Platelet Count 208 K/mm3 (150-450); RBC Distribution Width CV 15.1 % (11.6-14.6); RBC Distribution Width SD 54.9 fl (35.1-43.9); Red Blood Count 2.76 M/mm3 (4.6-6.2); White Blood Count 8.1 K/mm3 (4.4-11.0)
[2023-12-21] MEDS: hydrALAZINE 20 MG/ML Vial 10 MG IV (18:55)
--- NOTE | 2023-12-21 18:56 | US_ITS ---
STUDY: RENAL ULTRASOUND - COMPLETE REASON FOR EXAM: Male, 68 years old patient with CHARLIE. Rule-out postobstructive process. TECHNIQUE: Ultrasound evaluation of the kidneys was performed with real-time and static sherman-scale imaging. COMPARISON: CT of the abdomen and pelvis dated March 19, 2017. FINDINGS: RIGHT KIDNEY: Normal location of the right kidney, which is normal in size. The right kidney measures 11.6 x 5.6 x 5.8 cm. The cortex of the lobular contours suggesting residual lobation. There is also increased echogenicity of the cortex suggesting sequela of a chronic renal insufficiency and/or medical renal disease. There is no right renal mass or cyst. There are no right renal calculi. There is no right hydronephrosis. DISTAL RIGHT URETER: There is non-visualization of the distal right ureter. There is no demonstrated right ureterovesical junction calculus. There is no demonstrated right ureteral jet. LEFT KIDNEY: Normal location of the left kidney, which is normal in size. The left kidney measures 11.2 x 5.6 x 4.5 cm. There is a normal cortex of the left kidney. There is no left renal mass or cyst. There are no left renal calculi. There is no left hydronephrosis. DISTAL LEFT URETER: There is non-visualization of the distal left ureter. There is no demonstrated left ureterovesical junction calculus. There is no demonstrated left ureteral jet. BLADDER: Urinary bladder is not imaged. US/Kidney and Bladder IMPRESSION: 1. Echogenic right-sided renal parenchyma suggests sequela of chronic renal insufficiency and/or medical renal disease. 2. No sonographic evidence for hydronephrosis. Electronically Signed: Mirta Kaplan MD at 5:41 EST ,
[2023-12-21 19:02] LABS: International Normalized Ratio 1.1; Prothrombin Time (Protime)PT. 14.3 SECONDS (11.7-14.9)
[2023-12-21 19:03] LABS: Partial Thromboplast Time 23.2 Seconds (24.1-36.2)
[2023-12-21 19:09] LABS: Vitamin B12 408 pg/mL (211-911)
[2023-12-21] MEDS: fentaNYL drip 100 ML 2.5 MCG CONT INF (19:49)
[2023-12-21 19:51] LABS: Allen Test Positive; Base Excess -7 mmol/L (-2 to +2); Bicarbonate 19.6 mmol/L (22-26); Blood Gas Specimen Type ART; Mode AC; O2 Delivery Device Adult Vent; PEEP 5; PO2 65 mmHG (75-100); RR 14; SITE R Radial; SO2 90 % (95-99); Total Carbon Dioxide 21 mmol/L; pCO2 41.8 mmHg (35-45); pH 7.28 (7.35-7.45)
[2023-12-21 20:13] LABS: Lactic Acid 0.6 mmol/L (0.4-1.9)
--- OUTSIDE RECORDS SUMMARY | 2023-12-21 20:13 | XMS RPT_ITS | CCD ---
Author Organization [facility] Inform ion Partnership [facility] Care Team Providers Care Final Inspector Name Role Phone Luis Arredondo DO Primary Care Provider CHAGO BAKER Attending Unavailable LUIS ARREDONDO Primary Care Unavailable Luis Arredondo DO Primary Care Provider Luis Arredondo DO Primary Care Provider Medications Current Medications Medication Drug Class(es) Dates Sig (Normalized) Sig (Original) acetaminophen 500 mg oral tablet (20 sources) Start: 07-06-2020 take 1 tablet by mouth every four hours as needed acetaminophen (TYLENOL EXTRA STRENGTH) 500 mg tablet Take 1 tablet by mouth every 4 hours as needed for Pain. 0 07/06/2020 Active Comment on above: Take 1 tablet by teresita th every 4 hours as needed for Pain. [id number] 200 actuat albuterol 0.09 mg/actuat metered dose inhaler (20 sources) beta2-Adrenergic Agonist Start: 08-25-2023 take 2 puff(s) by inhalation every four hours as needed for wheezing albuterol HFA (VENTOLIN HFA) 90 mcg/actuation inhaler Indications: Adjustment disorder, unspecified type Inhale 2 Puffs as instructed every 4 hours as needed for wheezing/shortness of breath. 18 g 0 08/25/2023 Active Start: 03-10-2023 End: 08-25-2023 take 2 puff(s) by inhalation every four hours as needed for wheezing albuterol HFA (VENTOLIN HFA) 90 mcg/actuation inhaler Indications: Adjustment disorder, unspecified type Inhale 2 Puffs as instructed every 4 hours as needed for wheezing/shortness of breath. 18 g 0 04/11/2023 08/25/2023 Discontinued Start: 05-22-2021 End: 12-17-2022 take 2 puff(s) by inhalation every four hours as needed for wheezing albuterol HFA (VENTOLIN HFA) 90 mcg/actuation inhaler Indications: Adjustment disorder, unspecified type Inhale 2 Puffs as instructed every 4 hours as needed for wheezing/shortness of breath. 18 g 0 12/17/2022 Active Comment on above: Inhale 2 Puffs as in structed every 4 hours as needed for wheezing/shortness of breath. amitriptyline hydrochloride 50 mg oral tablet (20 sources) Tricyclic Antidepressant Start: 2021 End: 2023 take 1-2 tablets by mouth once daily at bedtime amitriptyline (ELAVIL) 50 mg tablet Indications: Primary insomnia Take 1-2 tablets by mouth daily at bedtime. 60 tablet 0 08/25/2023 09/24/2023 Active Comment on above: Take 1-2 tablets by mouth daily at bedtime. amoxicillin 875 mg / clavulanate 125 mg oral tablet (2 sources) Penicillin-class Antibacterial Start: 2022 End: 2022 take 1 tablet by mouth twice daily amoxicillin-clavulan ic acid (AUGMENTIN) 875-125 mg per tablet Indications: Lip laceration, initial encounter Take 1 tablet by mouth twice daily for 10 days. 20 tablet 0 09/22/2022 10/02/2022 Active Comment on above: Take 1 tablet by teresita th twice daily for 10 days. aspirin 81 mg oral tablet (20 sources) Platelet Aggregation Inhibitor, Nonsteroidal Anti-inflammatory Drug Start: 2012 take 1 tablet by mouth once daily at mealtime Aspirin 81 mg Tab Take 1 tablet by mouth once daily. Take with food. 30 tablet 11 07/28/2012 Active Comment on above: Take 1 tablet by teresita th once daily. Take with food. Blood-Glucose Meter monitoring kit (1 source) Start: 2023 End: 2023 Blood-Glucose Meter monitoring kit Glucose Meter of Choice - Kit - Dx: Type 2 DM - Uncontrolled E11.65 1 Each 0 04/10/2023 04/11/2023 Active Comment on above: Glucose Meter of Cho ice - Kit - Dx: Type 2 DM - Uncontrolled E11.65 busPIRone hydrochloride 5 mg oral tablet (2 sources) Start: 2022 End: 2022 take 1 tablet by mouth three times daily busPIRone (BUSPAR) 5 mg tablet Indications: JASMINA (generalized anxiety disorder) , Anxiety and depression Take 1 tablet by mouth three times daily. 90 tablet 0 09/22/2022 10/22/2022 Active Comment on above: Take 1 tablet by teresita three times daily. cholecalciferol 1.25 mg oral capsule (20 sources) Vitamin D Start: 2021 End: 2022 take 1 capsule by mouth every week cholecalciferol, Vitamin D3, (VITAMIN D3) 1,250 mcg (50,000 unit) cap capsule Indications: Vitamin D deficiency , Chest pain, unspecified type Take 1 capsule by mouth one time a week. 12 capsule 0 04/16/2022 Active Comment on above: Take 1 capsule by mo [facility] one time a week. cyclobenzaprine hydrochloride 10 mg oral tablet (20 sources) Muscle Relaxant Start: 2023 take 1 tablet by mouth three times daily as needed for muscle spasms cyclobenzaprine (FLEXERIL) 10 mg tablet Indications: Chronic right shoulder pain Take 1 tablet by mouth three times a day as needed for muscle spasm. 20 tablet 0 08/25/2023 Active Start: 05-22-2021 End: 08-25-2023 take 1 tablet by mouth three times daily as needed for muscle spasms cyclobenzaprine (FLEXERIL) 10 mg tablet Indications: Chronic right shoulder pain Take 1 tablet by mouth three times daily as needed for muscle spasm. 20 tablet 0 12/11/2021 08/25/2023 Discontinued Comment on above: Take 1 tablet by terestia three times daily as needed for muscle spasm. gabapentin 600 mg oral tablet (20 sources) Anti-epileptic Agent Start: End: take 1 tablet by mouth three times daily gabapentin (NEURONTIN) 600 mg tablet Take 1 tablet by mouth three times daily for 90 days. 90 tablet 0 12/11/2021 Active Comment on above: Take 1 tablet by teresita three times daily for 90 days. hydroCHLOROthiazide 25 mg oral tablet (20 sources) Thiazide Diuretic Start: take 1 tablet by mouth once daily hydroCHLOROthiazide 25 mg tablet Indications: Essential hypertension Take 1 tablet by mouth once daily. 90 tablet 3 08/25/2023 Active Start: 05-22-2021 End: 08-25-2023 take 1 tablet by mouth once daily hydroCHLOROthiazide 25 mg tablet Indications: Essential hypertension Take 1 tablet by mouth once daily. 90 tablet 3 01/02/2023 08/25/2023 Discontinued Comment on above: Take 1 tablet by teresita th once daily. insulin isophane, human 70 unt/ml / insulin, regular, human 30 unt/ml injectable suspension (20 sources) Insulin Start: 09-26-19 inject 14 [IU] by subcutaneous injection twice daily at mealtime insulin 70/30 NPH-regular units/mL 100 unit/mL suspension Indications: Type 2 diabetes mellitus without complication, with long-term current use of insulin (HCC) Inject 14 Units subcutaneously twice daily with meals. 10 mL 11 09/25/2022 Active Start: 01-15-2021 End: 09-22-2022 insulin 70/30 NPH-regular un its/mL (HUMULIN 70/30 U-100 KWIKPEN) 100 unit/mL (70-30) pen Indications: Type 2 diabetes mellitus without complication, with long-term current use of insulin (HCC) Inject 14 Units subcutaneously twice daily with meals. 15 Each 3 09/22/2022 Active Comment on above: Inject 14 Units subc utaneously twice daily with meals. insulin lispro 100 unt/ml injectable solution (20 sources) Insulin Analog Start: 021 inject 100 [IU] by subcutaneous injection three times daily at mealtime insulin lispro (ADMELOG U-100 INSULIN LISPRO) 100 unit/mL injection Inject 2-10 Units subcutaneously three times daily with meals. 3 Vial 0 08/01/2020 Active Comment on above: Inject 2-10 Units mireles bcutaneously three times daily with meals. lisinopril 40 mg oral tablet (20 sources) Angiotensin Converting Enzyme Inhibitor Start: 024 take 1 tablet by mouth once daily lisinopril (ZESTRIL) 40 mg tablet Indications: Essential hypertension Take 1 tablet by mouth once daily. 90 tablet 0 08/25/2023 Active Start: 05-22-2021 End: 08-25-2023 take 1 tablet by mouth once daily lisinopril (ZESTRIL) 40 mg tablet Indications: Essential hypertension Take 1 tablet by mouth once daily. 90 tablet 0 05/27/2023 08/25/2023 Discontinued Comment on above: Take 1 tablet by teresita th once daily. metoprolol tartrate 50 mg oral tablet (20 sources) beta-Adrenergic Laura Start: 08-25-2023 take 1 tablet by mouth twice daily metoprolol tartrate, short acting, (LOPRESSOR) 50 mg tablet Take 1 tablet by mouth two times a day. 60 tablet 0 08/25/2023 Active Start: 05-22-2021 End: 08-25-2023 take 1 tablet by mouth twice daily metoprolol tartrate, short acting, (LOPRESSOR) 50 mg tablet Take 1 tablet by mouth two times a day. 60 tablet 0 05/27/2023 08/25/2023 Discontinued Comment on above: Take 1 tablet by teresita th twice daily. Take 1 tablet by teresita th two times a day. nitroglycerin 0.4 mg sublingual tablet (20 sources) Nitrate Vasodilator Start: 05-23-19 End: 09-24-19 nitroglycerin sublingual (NITROQUICK) 0.4 mg SL tablet Dissolve 1 tablet under the tongue every 5 minutes as needed for chest pain. 25 tablet 0 08/25/2023 09/24/2023 Active Comment on above: Dissolve 1 tablet un philipp the tongue every 5 minutes as needed for chest pain. sertraline 50 mg oral tablet (20 sources) Serotonin Reuptake Inhibitor Start: 08-25-19 take 1 tablet by mouth once daily sertraline (ZOLOFT) 100 mg tablet Indications: JASMINA (generalized anxiety disorder) , Anxiety and depression Take 1 tablet by mouth once daily. 90 tablet 0 08/25/2023 Active Start: 08-25-2023 take 1 tablet by teresita th once daily sertraline (ZOLOFT) 50 mg tablet Indications: JASMINA (generalized anxiety disorder) , Anxiety and depression Take 1 tablet by mouth once daily. Total of 150 mg daily 90 tablet 0 08/25/2023 Active Start: 05-22-2021 End: 08-25-2023 take 1 tablet by mouth once daily sertraline (ZOLOFT) 100 mg tablet Indications: JASMINA (generalized anxiety disorder) , Anxiety and depression Take 1 tablet by mouth once daily. 90 tablet 0 05/27/2023 08/25/2023 Discontinued Start: 05-22-2021 End: 08-25-2023 take 1 tablet by mouth once daily sertraline (ZOLOFT) 50 mg tablet Indications: JASMINA (generalized anxiety disorder) , Anxiety and depression Take 1 tablet by mouth once daily. Total of 150 mg daily 90 tablet 0 05/27/2023 08/25/2023 Discontinued Comment on above: Take 1 tablet by teresita th once daily. Take 1 tablet by teresita th once daily. Total of 150 mg daily Completed/Discontinued Medications Medication Drug Class(es) Dates Sig (Normalized) Sig (Original) benzonatate 200 mg oral capsule (11 sources) Non-narcotic Antitussive Start: 06-09-2019 End: 09-22-2022 take 1 capsule by mouth every eight hours as needed Benzonatate 200 mg capsule Take 1 capsule by mouth three times daily as needed for Cough. 21 capsule 0 06/09/2019 09/22/2022 Discontinued Comment on above: Take 1 capsule by mo [facility] three times daily as needed for Cough. methadone hydrochloride 10 mg oral tablet (7 sources) Opioid Agonist Start: 07-28-2012 End: 12-11-2021 take 1 tablet by mouth every four hours as needed methadone 10 mg tablet Take 1 tablet by mouth every 4 hours as needed for Pain. 0 07/28/2012 12/11/2021 Discontinued Comment on above: Take 1 tablet by teresita every 4 hours as needed for Pain. Problems Active Problems Problem Classification Problem Date Documented Date Episodic/Chronic Adjustment disorders (20 sources) Adjustment disorder; Translations: [Adjustment disorder, unspecified] Onset: 09-14-2012 09-14-2012 Chronic Anxiety disorders (20 sources) Panic attack; Translations: [Panic disorder [episodic paroxysmal anxiety]] Onset: 09-14-2012 09-14-2012 Chronic Chronic obstructive pulmonary disease and bronchiectasis (20 sources) Chronic obstructive lung disease; Translations: [Chronic obstructive pulmonary disease, unspecified] Onset: 07-19-2018 07-19-2018 Chronic Diabetes mellitus with complications (20 sources) Diabetic ketoacidosis without coma; Translations: [Type 2 diabetes mellitus with ketoacidosis without coma] Onset: 04-30-2016 04-30-2016 Chronic Diabetes mellitus without complication (20 sources) Type 2 diabetes mellitus without complication; Translations: [Type 2 diabetes mellitus without complications] Onset: 05-10-2015 05-10-2015 Chronic Disorders of lipid metabolism (20 sources) Mixed hyperlipidemia; Translations: [Mixed hyperlipidemia] Onset: 05-10-2015 05-10-2015 Chronic E Codes: Fall (1 source) Fall; Translations: [Unspecified fall, initial encounter] 09-22-2022 Episodic Essential hypertension (20 sources) Essential hypertension; Translations: [Essential (primary) hypertension] Onset: 05-10-2015 05-10-2015 Chronic Malaise and fatigue (1 source) Asthenia; Translations: [Weakness] 09-22-2022 Episodic Miscellaneous mental health disorders (20 sources) Primary insomnia; Translations: [Primary insomnia] Onset: 12-20-2018 12-20-2018 Chronic Nonspecific chest pain (2 sources) Chest pain; Translations: [Chest pain, unspecified] Episodic Nutritional deficiencies (5 sources) Vitamin D deficiency; Translations: [Vitamin D deficiency, unspecified] Chronic Nutritional deficiencies (1 source) Cobalamin deficiency; Translations: [Deficiency of other specified B group vitamins] 09-22-2022 Episodic Open wounds of head; neck; and trunk (1 source) Laceration of lip ; Translations: [Laceration without foreign body of lip, initial encounter] 09-22-2022 Episodic Other and ill-defined heart disease (20 sources) Cardiomegaly; Translations: [Cardiomegaly] Onset: 07-19-2018 07-19-2018 Chronic Other male genital disorders (20 sources) 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; Translations: [Corporo-venous occlusive erectile dysfunction] Onset: 04-29-2016 04-29-2016 Chronic Other non-traumatic joint disorders (20 sources) Chronic pain of right upper limb; Translations: [Pain in right shoulder] Onset: 12-20-2018 12-20-2018 Episodic Other screening for suspected conditions (not mental disorders or infectious disease) (4 sources) Patient encounter status; Translations: [Encounter for screening for other suspected endocrine disorder] Episodic Unclassified (10 sources) Type 2 diabetes mellitus without complication; Translations: [Diabetes mellitus type 2, uncontrolled, without complications] Onset: 12-20-2018 12-20-2018 Past or Other Problems Problem Classification Problem Date Documented Date Episodic/Chronic Other connective tissue disease (20 sources) Bursitis of olecranon of left elbow; Translations: [Olecranon bursitis, left elbow] Onset: 12-20-2018 12-20-2018 Episodic Other diseases of veins and lymphatics (17 sources) Stasis dermatitis; Translations: [Venous insufficiency (chronic) (peripheral)] Onset: 12-20-2018 12-20-2018 Episodic Other diseases of veins and lymphatics (5 sources) Disorder of vein of lower extremity; Translations: [Venous insufficiency (chronic) (peripheral)] Onset: 12-20-2018 12-20-2018 Episodic Other lower respiratory disease (20 sources) Dyspnea; Translations: [Shortness of breath] Onset: 12-20-2018 12-20-2018 Episodic Other lower respiratory disease (20 sources) Wheezing; Translations: [Wheezing] Onset: 12-20-2018 12-20-2018 Episodic Milady-; endo-; and myocarditis; cardiomyopathy (except that caused by tuberculosis or sexually transmitted disease) (20 sources) Pericardial effusion - noninflammatory; Translations: [Pericardial effusion (noninflammatory)] Onset: 05-10-2015 05-10-2015 Episodic Spondylosis; intervertebral disc disorders; other back problems (20 sources) Chronic low back pain; Translations: [Chronic midline low back pain without sciatica] Onset: 12-20-2018 12-20-2018 Episodic Substance-related disorders (20 sources) Marijuana user; Translations: [Cannabis use, unspecified, uncomplicated] Onset: 07-19-2018 07-19-2018 Episodic Results Test Name Value Interpretation Reference Range Facil ity [place] 04-10-2023 [facility] Telephone (FAMWS) -- CORY BAILEY ([id number]) 1955 M Date Time Provider Department 04/10/23 LUIS ARREDONDO During your visit today, we recorded the following information about you: Sydney Rhodes 04/11/2023 8:37 AM Signed Cory is calling Luis Arredondo DO today to request Refill Request (needs a new glucometer to match his test strips as he recently broke it when it fell ) Patient has been identified by name and birthdate. Duration of symptoms: N/A Person calling: self Call patient at: at home [phone] (home) [phone] (cell) Was an appointment scheduled: No Closing statement: Results or non-symptom based questions: Thank you for calling [facility], your call will be returned within the next business day. Luis Diaz DO 04/10/2023 5:14 PM Signed The following approved medication requests have been transmitted electronically. Requested Prescriptions Signed Prescriptions Disp Refills Blood-Glucose Meter monitoring kit 1 Each 0 Sig: Glucose Meter of Choice - Kit - Dx: Type 2 DM - Uncontrolled E11.65 Authorizing Provider: LUIS ARREDONDO DO Allergies As of Date: 04/10/2023 (No Known Allergies) Date Reviewed: 09/22/2022 Reviewed by: Chago Baker APRN.DITCH DIGGER - Fully Assessed Reason for Visit: Refill Request [94] Cmt: needs a new glucometer to match his test strips as he recently broke it when it fell Order(s):Blood-Glucose Meter monitoring kitGlucose Meter of Choice - Kit - Dx: Type 2 DM - Uncontrolled E11.65Disp: 1 EachRfl: 0 Prescriptions as of 04/11/2023 - Blood-Glucose Meter monitoring kit Glucose Meter of Choice - Kit - Dx: Type 2 DM - Uncontrolled E11.65 - sertraline (ZOLOFT) 50 mg tablet Take 1 tablet by mouth once daily. Total of 150 mg daily - sertraline (ZOLOFT) 100 mg tablet Take 1 tablet by mouth once daily. - amitriptyline (ELAVIL) 50 mg tablet Take 1-2 tablets by mouth daily at bedtime. - nitroglycerin sublingual (NITROQUICK) 0.4 mg SL tablet Dissolve 1 tablet under the tongue every 5 minutes as needed for chest pain. - metoprolol tartrate, short acting, (LOPRESSOR) 50 mg tablet Take 1 tablet by mouth two times a day. - albuterol HFA (VENTOLIN HFA) 90 mcg/actuation inhaler Inhale 2 Puffs as instructed every 4 hours as needed for wheezing/shortness of breath. - hydroCHLOROthiazide 25 mg tablet Take 1 tablet by mouth once daily. - Insulin Syringe-Needle U-100 1 mL 27 gauge x 5/8 Use two times daily. Dx: E11.65 - insulin 70/30 NPH-regular units/mL 100 unit/mL suspension Inject 14 Units subcutaneously twice daily with meals. - insulin 70/30 NPH-regular units/mL (HUMULIN 70/30 U-100 KWIKPEN) 100 unit/mL (70-30) pen Inject 14 Units subcutaneously twice daily with meals. - lisinopril (ZESTRIL, PRINIVIL) 40 mg tablet Take 1 tablet by mouth once daily. - cholecalciferol, Vitamin D3, (VITAMIN D3) 1,250 mcg (50,000 unit) cap capsule Take 1 capsule by mouth one time a week. - cyclobenzaprine (FLEXERIL) 10 mg tablet Take 1 tablet by mouth three times daily as needed for muscle spasm. - gabapentin (NEURONTIN) 600 mg tablet Take 1 tablet by mouth three times daily for 90 days. - blood sugar diagnostic ([place] TALK TEST STRIPS) test strip Use as instructed. Check blood sugars 3-4 times daily. - insulin lispro (ADMELOG U-100 INSULIN LISPRO) 100 unit/mL injection Inject 2-10 Units subcutaneously three times daily with meals. - acetaminophen (TYLENOL EXTRA STRENGTH) 500 mg tablet Take 1 tablet by mouth every 4 hours as needed for Pain. - insulin needles, DISPOSABLE, (PEN NEEDLE) 31 gauge x 5/16 Use one needle per dose. 2 per day. - Aspirin 81 mg Tab Take 1 tablet by mouth once daily. Take with food. Meds Comments as of 11/12/2018: 11/12/18 states he no longer takes ASA 81 mg daily. Jessica Gutiérrez RN Problem List As Of Date 04/10/2023 Noted Resolved Panic attack [F41.0] 09/14/2012 Adjustment disorder [F43.20] 09/14/2012 Essential hypertension [I10] 05/10/2015 Pericardial effusion (noninflammatory) [I31.39] 05/10/2015 Mixed hyperlipidemia [E78.2] 05/10/2015 Type 2 diabetes mellitus without complication (*05/10/2015 Corporo-venous occlusive erectile dysfunction [*04/29/2016 Diabetic ketoacidosis without coma associated w*04/30/2016 COPD (chronic obstructive pulmonary disease) (H*07/19/2018 Cardiomegaly [I51.7] 07/19/2018 Marijuana user [F12.90] 07/19/2018 Type 2 diabetes mellitus with hyperglycemia, wi*12/20/2018 Chronic midline low back pain without sciatica *12/20/2018 Olecranon bursitis of left elbow [M70.22] 12/20/2018 Primary insomnia [F51.01] 12/20/2018 Shortness of breath [R06.02] 12/20/2018 Wheezing [R06.2] 12/20/2018 Stasis dermatitis of both legs [I87.2] 12/20/2018 Chronic right-sided thoracic back pain [M54.6, *12/20/2018 Chronic right shoulder (more content not included)... Normal [facility] CNPNon 03-27-2023 CNPN Telephone (PHARMN) -- CORY BAILEY ([id number]) 1955 M Date Time Provider Department 03/27/23 LUCILLE MAR PHARMN During your visit today, we recorded the following information about you: Lucille Mar, [facility] 03/27/2023 1:44 PM Signed Telephoned the patient to schedule a new Primary Care pharmacy appt. No message left, the mailbox is full. Lucille Mar, [facility]SS 03/30/2023 11:34 AM Signed Telephoned the patient to schedule a new Primary Care pharmacy appt. Not able to leave a message. The mailbox is full. Made two attempts to contact the patient. If the patient calls, an appt will be scheduled. Encounter routed to the clinical pharmacist. Allergies As of Date: 03/27/2023 (No Known Allergies) Date Reviewed: 09/22/2022 Reviewed by: Chago Baker APRN.DITCH DIGGER - Fully Assessed Reason for Visit: NEW PRIMARY CARE PHARMACY APPT [Other] Prescriptions as of 03/30/2023 - albuterol HFA (VENTOLIN HFA) 90 mcg/actuation inhaler Inhale 2 Puffs as instructed every 4 hours as needed for wheezing/shortness of breath. - sertraline (ZOLOFT) 100 mg tablet Take 1 tablet by mouth once daily. - sertraline (ZOLOFT) 50 mg tablet Take 1 tablet by mouth once daily. Total of 150 mg daily - hydroCHLOROthiazide 25 mg tablet Take 1 tablet by mouth once daily. - amitriptyline (ELAVIL) 50 mg tablet Take 1-2 tablets by mouth daily at bedtime. - Insulin Syringe-Needle U-100 1 mL 27 gauge x 5/8 Use two times daily. Dx: E11.65 - insulin 70/30 NPH-regular units/mL 100 unit/mL suspension Inject 14 Units subcutaneously twice daily with meals. - insulin 70/30 NPH-regular units/mL (HUMULIN 70/30 U-100 KWIKPEN) 100 unit/mL (70-30) pen Inject 14 Units subcutaneously twice daily with meals. - metoprolol tartrate, short acting, (LOPRESSOR) 50 mg tablet Take 1 tablet by mouth twice daily. - lisinopril (ZESTRIL, PRINIVIL) 40 mg tablet Take 1 tablet by mouth once daily. - cholecalciferol, Vitamin D3, (VITAMIN D3) 1,250 mcg (50,000 unit) cap capsule Take 1 capsule by mouth one time a week. - cyclobenzaprine (FLEXERIL) 10 mg tablet Take 1 tablet by mouth three times daily as needed for muscle spasm. - gabapentin (NEURONTIN) 600 mg tablet Take 1 tablet by mouth three times daily for 90 days. - blood sugar diagnostic ([place] TALK TEST STRIPS) test strip Use as instructed. Check blood sugars 3-4 times daily. - nitroglycerin sublingual (NITROQUICK) 0.4 mg SL tablet Dissolve 1 tablet under the tongue every 5 minutes as needed for chest pain. - insulin lispro (ADMELOG U-100 INSULIN LISPRO) 100 unit/mL injection Inject 2-10 Units subcutaneously three times daily with meals. - acetaminophen (TYLENOL EXTRA STRENGTH) 500 mg tablet Take 1 tablet by mouth every 4 hours as needed for Pain. - insulin needles, DISPOSABLE, (PEN NEEDLE) 31 gauge x 5/16 Use one needle per dose. 2 per day. - Aspirin 81 mg Tab Take 1 tablet by mouth once daily. Take with food. Meds Comments as of 11/12/2018: 11/12/18 states he no longer takes ASA 81 mg daily. Jessica Gutiérrez RN Problem List As Of Date 03/27/2023 Noted Resolved Panic attack [F41.0] 09/14/2012 Adjustment disorder [F43.20] 09/14/2012 Essential hypertension [I10] 05/10/2015 Pericardial effusion (noninflammatory) [I31.39] 05/10/2015 Mixed hyperlipidemia [E78.2] 05/10/2015 Type 2 diabetes mellitus without complication (*05/10/2015 Corporo-venous occlusive erectile dysfunction [*04/29/2016 Diabetic ketoacidosis without coma associated w*04/30/2016 COPD (chronic obstructive pulmonary disease) (H*07/19/2018 Cardiomegaly [I51.7] 07/19/2018 Marijuana user [F12.90] 07/19/2018 Type 2 diabetes mellitus with hyperglycemia, wi*12/20/2018 Chronic midline low back pain without sciatica *12/20/2018 Olecranon bursitis of left elbow [M70.22] 12/20/2018 Primary insomnia [F51.01] 12/20/2018 Shortness of breath [R06.02] 12/20/2018 Wheezing [R06.2] 12/20/2018 Stasis dermatitis of both legs [I87.2] 12/20/2018 Chronic right-sided thoracic back pain [M54.6, *12/20/2018 Chronic right shoulder pain [M25.511, G89.29] 12/20/2018 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 Pt needs vials and syringes. Asking if this can be done jose r so [facility] can deliver it. Please review rx. Call pt when done. Patient has been identified by name and date of : Yes Requested Prescriptions Pending Prescriptions Disp Refills Insulin Syringe-Needle U-100 1 mL 27 gauge x 5/8 100 Each 5 Sig: Use two times daily. Dx: E11.65 insulin 70/30 NPH-regular units/mL 100 unit/mL suspension Sig: Inject 14 Units subcutaneously twice daily with meals. RX INSTRUCTIONS: Patient aware RX will be sent to pharmacy. No need to notify patient. Chago Hewitt LPN, APRN.CNP 09/25/2022 9:29 AM Signed Please call pt and let him know this is sent. The following approved medication requests have been transmitted electronically. Requested Prescriptions Signed Prescriptions Disp Refills Insulin Syringe-Needle U-100 1 mL 27 gauge x 5/8 100 Each 5 Sig: Use two times daily. Dx: E11.65 Authorizing Provider: CHAGO BAKER insulin 70/30 NPH-regular units/mL 100 unit/mL suspension 10 mL 11 Sig: Inject 14 Units subcutaneously twice daily with meals. Authorizing Provider: CHAGO BAKER APRN.CNP Quattrocchi, Beth LPN 09/25/2022 10:33 AM Signed Phoned patient and went over notes below, aware rx x 2 were sent to pharmacy with understanding. Allergies As of Date: 09/23/2022 (No Known Allergies) Date Reviewed: 09/22/2022 Reviewed by: Chago Baker APRN.NISHA - Fully Assessed Reason for Visit: Medication Problem [65] Primary Visit Diagnosis:Type 2 diabetes mellitus without complication, with long-term current use of insulin (HCC) [E11.9, Z79.4] Order(s):Insulin Syringe-Needle U-100 1 mL 27 gauge x 5/8 Use two times daily. Dx: E11.65Disp: 100 EachRfl: 5 insulin 70/30 NPH-regular units/mL 100 unit/mL suspensionInject 14 Units subcutaneously twice daily with meals.Disp: 10 mLRfl: 11 Prescriptions as of 09/25/2022 - Insulin Syringe-Needle U-100 1 mL 27 gauge x 5/8 Use two times daily. Dx: E11.65 - insulin 70/30 NPH-regular units/mL 100 unit/mL suspension Inject 14 Units subcutaneously twice daily with meals. - sertraline (ZOLOFT) 100 mg tablet Take 1 tablet by mouth once daily. - sertraline (ZOLOFT) 50 mg tablet Take 1 tablet by mouth once daily. Total of 150 mg daily - insulin 70/30 NPH-regular units/mL (HUMULIN 70/30 U-100 KWIKPEN) 100 unit/mL (70-30) pen Inject 14 Units subcutaneously twice daily with meals. - albuterol HFA (VENTOLIN HFA) 90 mcg/actuation inhaler Inhale 2 Puffs as instructed every 4 hours as needed for wheezing/shortness of breath. - amitriptyline (ELAVIL) 50 mg tablet Take 1-2 tablets by mouth daily at bedtime. - busPIRone (BUSPAR) 5 mg tablet Take 1 tablet by mouth three times daily. - amoxicillin-clavulanic acid (AUGMENTIN) 875-125 mg per tablet Take 1 tablet by mouth twice daily for 10 days. - metoprolol tartrate, short acting, (LOPRESSOR) 50 mg tablet Take 1 tablet by mouth twice daily. - lisinopril (ZESTRIL, PRINIVIL) 40 mg tablet Take 1 tablet by mouth once daily. - cholecalciferol, Vitamin D3, (VITAMIN D3) 1,250 mcg (50,000 unit) cap capsule Take 1 capsule by mouth one time a week. - cyclobenzaprine (FLEXERIL) 10 mg tablet Take 1 tablet by mouth three times daily as needed for muscle spasm. - gabapentin (NEURONTIN) 600 mg tablet Take 1 tablet by mouth three times daily for 90 days. - blood sugar diagnostic (farmhoppingACE TALK TEST STRIPS) test strip Use as instructed. Check blood sugars 3-4 times daily. - hydroCHLOROthiazide (HYDRODIURIL, ESIDRIX) 25 mg tablet Take 1 tablet by mouth once daily. - nitroglycerin sublingual (NITROQUICK) 0.4 mg SL tablet Dissolve 1 tablet under the tongue every 5 minutes as needed for chest pain. - insulin lispro (ADMELOG U-100 INSULIN LISPRO) 100 unit/mL injection Inject 2-10 Units subcutaneously three times daily with meals. - acetaminophen (TYLENOL EXTRA STRENGTH) 500 mg tablet Take 1 tablet by mouth every 4 hours as needed for Pain. - insulin needles, DISPOSABLE, (PEN NEEDLE) 31 gauge x 5/16 Use one needle per dose. 2 per day. - Aspirin 81 mg Tab Take 1 tablet by mouth once daily. Take with food. Meds Comments as of 11/12/2018: 11/12/18 states he no longer takes ASA 81 mg daily. Jessica Gutiérrez RN Problem List As Of Date 09/23/2022 Noted Resolved Panic attack [F41.0] 09/14/2012 Adjustment disorder [F43.20] 09/14/2012 Essential hypertension [I10] 05/10/2015 Pericardial effusion (noninflammatory) [I31.39] 05/10/2015 Mixed hyp (more content not included)... Normal [facility] CNOVon 09-22-2022 CNOV Office Visit (FAMPWS ) -- CORY BAILEY ([id number]) 1955 M Date Time Provider Department 09/22/22 2:40 PM CHAGO BAKER [facility] During your visit today, we recorded the following information about you: Pulse Respiration Blood pressure Weight 88/minute 16/minute 100/60 90.7 kg Height 1.803 m Chago Baker APRN.DITCH DIGGER 09/22/2022 4:35 PM Signed Chief Complaint Patient presents with: Physical HPI Cory Claus Bailey is a 67 year old male who presents here today for Above Complaints. Cory is an established patient of Dr. Matty DO and myself. Concerns today.. Routine annual physical. Has not been seen in office by PCP team since 2019. Pt ran out of all medication x 1-2 months now. Was getting 70/30 insulin over the counter, but no other medications. Fall--- Had a fall 8 days ago. Sock was falling off and pt tripped over his own sock. Fell forward and hit face on bathroom floor. No LOC. No dizziness prior to or after. Pt denies any headaches, vision changes, LOC, or any neurological deficits since the fall. L eye is black and blue and pt reports pain and tenderness to touch of nose and L side of face (L cheek and forehead). Pain with opening mouth wide. Pt also bite through bottom lip when he fell. Lip has 2 lacerations with purulent drainage. Due to lip pain, pt has had no appetite and has barely ate since fall. Pt reports general weakness since -- feels this is due to not eating. Using a cane at home since the fall -- before was walking without difficulties without assistive device. Depression/anxeity -- Prescribed zoloft 150 mg daily. Pt reports this regimen works very well but he has been out of medication x 1-2 months. Anxiety is pt's biggest concern/complaint during this visit. Feels his mood/stress/anxiety is causing everything else. HTN -- He states non-compliant with current blood pressure medication(s): Metoprolol 50 mg BID, HCTZ 25 mg daily, lisinopril 40 mg daily. He does not check BP at home. Has been out of these medications x 1-2 months. BP in office borderline hypotensive. He denies chest pain, shortness of breath, palpitations, dizziness, leg edema, headaches, or vision changes. Last 14 Encounter BP Readings: Date: BP: 09/22/2022 100/60 08/01/2020 132/90 12/17/2018 138/82 07/19/2018 154/90 06/09/2018 138/78 05/24/2018 152/100 12/15/2017 138/82 10/06/2017 142/98 04/23/2017 90/62 03/31/2017 130/72 01/12/2017 196/110 04/29/2016 124/80 02/20/2016 134/80 01/30/2016 156/80 DM -- Taking 70/30 insulin 14 units BID with meals. No other regimen due to running out and not being seen in office since 2019. Checking blood sugars to be around 160-190 per pt. Last hgA1c was 11.0 in 2019 -- 4 years ago. Denies polyuria, polydipsia, numbness, tingling or pain in extremities, new or unusual visual symptoms, unintended weight changes, lightheadedness/dizziness, bowel changes/loose stools, chest pain or dyspnea COPD -- Pt reports baseline SOB. Pt believes SOB related to anxiety. Pt denies any CP, dizziness, or palpitations. SOB no worse with exertion per pt. Albuterol does not seem to help much anymore. Past medical history, appointments, medications, allergies reviewed. Previous Medical History PAST MEDICAL HISTORY Diagnosis Date Anxiety Chronic pain Diabetes mellitus type 2, uncontrolled 2007 Hyperlipidemia LDL goal < 100 Hypertension Migraine Pericardial effusion 2007,2008 drained Previous Surgical History PAST SURGICAL HISTORY Procedure Laterality Date ANTERIOR INTERBODY FUSION, CERVICAL 1991 L-5 S-1 APPENDECTOMY 1962 LAPAROSCOPY SURG CHOLECYSTECTOMY 09/17/12 ROTATOR CUFF REPAIR 1998 Right Family History FAMILY HISTORY Problem Relation Age of Onset Cancer Father bladder Heart Mother Breast Cancer Paternal Grandmother other (Parkinsons [Other]) Paternal Grandfather Patient Allergies ALLERGIES No Known Allergies Current Medications Current Outpatient Medications on File Prior to Visit Medication Sig sertraline (ZOLOFT) 50 mg tablet Take 1 tablet by mouth once daily. Total of 150 mg daily sertraline (ZOLOFT) 100 mg tablet Take 1 tablet by mouth once daily. metoprolol tartrate, short acting, (LOPRESSOR) 50 mg tablet Take 1 tablet by mouth twice daily. lisinopril (ZESTRIL, PRINIVIL) 40 mg tablet Take 1 tablet by mouth once daily. cholecalciferol, Vitamin D3, (VITAMIN D3) 1,250 mcg (50,000 unit) cap capsule Take 1 capsule by mouth one time a week. insulin 70/30 NPH/regular units/mL (HUMULIN 70/30 U-100 KWIKPEN) 100 unit/mL (70-30) Inject 14 Units subcutaneously twice daily with meals. cyclobenzaprine (FLEXERIL) 10 mg tablet Take 1 tablet by mouth three times daily as needed for muscle spasm. albuterol HFA (VENTOLIN HFA) 90 mcg/actuation inhaler Inhale 2 Puffs as instructed every 4 hours as nee (more content not included)... Normal [facility] [id number] 09-22-2022 ECG01 Ventricular Rate : 8 4 BPM Atrial Rate : 84 BPM P-R Interval : 152 ms QRS Duration : 88 ms Q-T Interval : 400 ms QTC Calculation(Bazett) : 472 ms Calculated P Esperance : 38 degrees Calculated R Esperance : -33 degrees Calculated T Esperance : 31 degrees NORMAL SINUS RHYTHM LEFT AXIS DEVIATION INFERIOR MYOCARDIAL INFARCTION , AGE UNDETERMINED ANTEROSEPTAL MYOCARDIAL INFARCTION , AGE UNDETERMINED ABNORMAL ECG Confirmed by DALILA SANCHEZ M.D. ([id number]) on 09/29/2022 4:03:52 PM NAME : CORY BAILEY PID : [id number] : 1955 Gender : Male Race : ORD : Procedure Date : Sep 22 2022 14:45:26 Edit Date : Sep 29 2022 16:03:53 Diagnosis: NORMAL SINUS RHYTHM LEFT AXIS DEVIATION INFERIOR MYOCARDIAL INFARCTION , AGE UNDETERMINED ANTEROSEPTAL MYOCARDIAL INFARCTION , AGE UNDETERMINED ABNORMAL ECG Confirmed by DALILA SANCHEZ M.D. ([id number]) on 09/29/2022 4:03:52 PM Test Reason : Location : 185 : [facility] Overread By : DALILA SANCHEZ M.D. Edited By : DALILA SANCHEZ M.D. Referred By : [email or web address], Acquired by : [facility], Normal [facility] ECG01 Ventricular Rate : 8 4 BPM Atrial Rate : 84 BPM P-R Interval : 152 ms QRS Duration : 88 ms Q-T Interval : 400 ms QTC Calculation(Bazett) : 472 ms Calculated P Esperance : 38 degrees Calculated R Esperance : -33 degrees Calculated T Esperance : 31 degrees NORMAL SINUS RHYTHM LEFT AXIS DEVIATION INFERIOR MYOCARDIAL INFARCTION , AGE UNDETERMINED ANTEROSEPTAL MYOCARDIAL INFARCTION , AGE UNDETERMINED ABNORMAL ECG Confirmed by DALILA SANCHEZ M.D. ([id number]) on 09/29/2022 4:03:57 PM NAME : CORY BAILEY PID : [id number] : 1955 Gender : Male Race : ORD : Procedure Date : Sep 22 2022 14:45:26 Edit Date : Sep 29 2022 16:04:04 Diagnosis: NORMAL SINUS RHYTHM LEFT AXIS DEVIATION INFERIOR MYOCARDIAL INFARCTION , AGE UNDETERMINED ANTEROSEPTAL MYOCARDIAL INFARCTION , AGE UNDETERMINED ABNORMAL ECG Confirmed by DALILA SANCHEZ M.D. ([id number]) on 09/29/2022 4:03:57 PM Test Reason : Location : 185 : [facility] Overread By : DALILA SANCHEZ M.D. Edited By : DALILA SANCHEZ M.D. Referred By : same, Acquired by : [facility], [place] [facility] CNCOon 04-23-2022 CNCO Letter Text Normal [facility] CNPNon 04-16-2022 CNPN Telephone (FAMPWS) -- CORY BAILEY ([id number]) 1955 Date Time Provider Department [facility]22 [facility] today, we recorded the following information about you: Christiana Saucedo Ma 04/16/2022 9:18 AM Signed Received form from insurance that Humulin 70/30 no longer covered. Please choose alternative below and send -Novolog Mix 70/30 -Novolin 70/30 Christiana Baker APRN.DITCH DIGGER 04/23/2022 6:50 PM Signed Pt needs appointment to assess this. He has no showed 4 appointments in the last few months and has cancelled numerous others. He has not been seen in office in over 1.5 years. Thank you, Chago Baker APRN.DITCH DIGGER Chelsi Holiday 04/23/2022 6:54 PM Signed Please assist with scheduling 40 min appt Chelsi Holiday Lady Scott Pss 04/24/2022 8:32 AM Signed Spoke with spouse and she will patient call to schedule Allergies As of Date: 04/16/2022 (No Known Allergies) Date Reviewed: 12/11/2021 Reviewed by: Chago Zayas APRN.DITCH DIGGER - Fully Assessed Reason for Visit: Med Change Request [3823] Cmt: Humulin 70/30 Prescriptions as of 05/16/2022 - sertraline (ZOLOFT) 50 mg tablet Take 1 tablet by mouth once daily. Total of 150 mg daily - sertraline (ZOLOFT) 100 mg tablet Take 1 tablet by mouth once daily. - metoprolol tartrate, short acting, (LOPRESSOR) 50 mg tablet Take 1 tablet by mouth twice daily. - lisinopril (ZESTRIL, PRINIVIL) 40 mg tablet Take 1 tablet by mouth once daily. - cholecalciferol, Vitamin D3, (VITAMIN D3) 1,250 mcg (50,000 unit) cap capsule Take 1 capsule by mouth one time a week. - insulin 70/30 NPH/regular units/mL (HUMULIN 70/30 U-100 KWIKPEN) 100 unit/mL (70-30) Inject 14 Units subcutaneously twice daily with meals. - cyclobenzaprine (FLEXERIL) 10 mg tablet Take 1 tablet by mouth three times daily as needed for muscle spasm. - amitriptyline (ELAVIL) 50 mg tablet Take 1-2 tablets by mouth daily at bedtime. - albuterol HFA (VENTOLIN HFA) 90 mcg/actuation inhaler Inhale 2 Puffs as instructed every 4 hours as needed for wheezing/shortness of breath. - gabapentin (NEURONTIN) 600 mg tablet Take 1 tablet by mouth three times daily for 90 days. - blood sugar diagnostic (EMBRACE TALK TEST STRIPS) test strip Use as instructed. Check blood sugars 3-4 times daily. - hydroCHLOROthiazide (HYDRODIURIL, ESIDRIX) 25 mg tablet Take 1 tablet by mouth once daily. - nitroglycerin sublingual (NITROQUICK) 0.4 mg SL tablet Dissolve 1 tablet under the tongue every 5 minutes as needed for chest pain. - insulin lispro (ADMELOG U-100 INSULIN LISPRO) 100 unit/mL injection Inject 2-10 Units subcutaneously three times daily with meals. - acetaminophen (TYLENOL EXTRA STRENGTH) 500 mg tablet Take 1 tablet by mouth every 4 hours as needed for Pain. - insulin needles, DISPOSABLE, (PEN NEEDLE) 31 gauge x 5/16 Use one needle per dose. 2 per day. - Benzonatate 200 mg capsule Take 1 capsule by mouth three times daily as needed for Cough. - Insulin Syringe-Needle U-100 1 mL 27 gauge x 5/8 syrg Use four times daily. Dx: E11.65 - Aspirin 81 mg Tab Take 1 tablet by mouth once daily. Take with food. Meds Comments as of 11/12/2018: 11/12/18 states he no longer takes ASA 81 mg daily. Jessica Gutiérrez RN Problem List As Of Date 04/16/2022 Noted Resolved Panic attack [F41.0] 09/14/2012 Adjustment disorder [F43.20] 09/14/2012 Essential hypertension [I10] 05/10/2015 Pericardial effusion (noninflammatory) [I31.39] 05/10/2015 Mixed hyperlipidemia [E78.2] 05/10/2015 Type 2 diabetes mellitus without complication (*05/10/2015 Corporo-venous occlusive erectile dysfunction [*04/29/2016 Diabetic ketoacidosis without coma associated w*04/30/2016 COPD (chronic obstructive pulmonary disease) (H*07/19/2018 Cardiomegaly [I51.7] 07/19/2018 Marijuana user [F12.90] 07/19/2018 Diabetes mellitus type 2, uncontrolled, without*12/20/2018 Chronic midline low back pain without sciatica *12/20/2018 Olecranon bursitis of left elbow [M70.22] 12/20/2018 Primary insomnia [F51.01] 12/20/2018 Shortness of breath [R06.02] 12/20/2018 Wheezing [R06.2] 12/20/2018 Stasis dermatitis of both legs [I87.2] 12/20/2018 Chronic right-sided thoracic back pain [M54.6, *12/20/2018 Chronic right shoulder pain [M25.511, G89.29] 12/20/2018 COPD with chronic bronchitis (HCC) [J44.9] 12/20/2018 Encounter Status:Closed by CHRISTIANA SAUCEDO MA on 05/16/22 Normal [facility] Vital Signs Date Time Vital Sign Value Performing Clinician Lo pardo 09-22-2022 14:40-0400 Body height 180.3 cm Chago Baker APRN.DITCH DIGGER Work Phone: [facility] 09-22-2022 14:40-0400 Body weight 90.72 kg Chago Baker AFFILIATE MARKETING SPECIALIST.DITCH DIGGER Work Phone: [facility] 09-22-2022 14:40-0400 Diastolic blood pressure 60 mm[Hg] Chago Baker AFFILIATE MARKETING SPECIALIST.DITCH DIGGER Work Phone: [facility] 09-22-2022 14:40-0400 Heart rate 88 /min Chago Baker AFFILIATE MARKETING SPECIALIST.DITCH DIGGER Work Phone: [facility] 09-22-2022 14:40-0400 Respiratory rate 16 /min Chago Baker AFFILIATE MARKETING SPECIALIST.DITCH DIGGER Work Phone: [facility] 09-22-2022 14:40-0400 SaO2% (BldA) [Mass fraction] 97 % Chago Baker AFFILIATE MARKETING SPECIALIST.DITCH DIGGER Work Phone: [facility] 09-22-2022 14:40-0400 Systolic blood pressure 100 mm[Hg] Chago Baker AFFILIATE MARKETING SPECIALIST.DITCH DIGGER Work Phone: [facility] Encounters Encounter Date Encounter Type Care Provider Facility Start: 08-25-2023 Refill Luis Burt son DO Work Phone: [facility] Comment on above: Refill Request Start: 05-26-2023 Refill Luis santos DO Work Phone: [facility] [place] Comment on above: Refill Request Start: 05-20-2023 Refill Luis santos DO Work Phone: [facility] [place] Comment on above: Refill Request Start: 04-10-2023 Telephone encounter Luis cruz DO Work Phone: [facility] [place] Comment on above: Refill Request (need s a new glucometer to match his test strips as he recently broke it when it fell ) Refill Request Start: 03-31-2023 Refill Luis santos DO Work Phone: [facility] [place] Comment on above: Refill Request Start: 03-27-2023 [facility] AP[facility] Start: 03-26-2023 ambulatory [facility] RP h Work Phone: [facility] Start: 01-02-2023 Refill Luis santos DO Work Phone: [facility] Comment on above: Refill Request Start: 12-17-2022 Refill Luis santos DO Work Phone: [facility] [place] Comment on above: Refill Request Start: 09-23-2022 Telephone encounter Luis cruz DO Work Phone: [facility] [place] Comment on above: Medication Problem Start: 09-22-2022 End: 09-22-2022 ambulatory CHAGO BAKER Facility:[facility] Start: 09-22-2022 End: 09-22-2022 Patient encounter procedure Chagogennaro Baker AFFILIATE MARKETING SPECIALIST.DITCH DIGGER Work Phone: [facility] [place] Comment on above: Type 2 diabetes travon itus without complication, with long-term current use of insulin (HCC) (Primary Dx); Adjustment disorder, unspecified type; Primary insomnia; Vitamin D deficiency; Essential hypertension; COPD with chronic bronchitis (HCC); Mixed hyperlipidemia; Fall, initial encounter; Screening for prostate cancer; Generalized weakness; JASMINA (generalized anxiety disorder); Anxiety and depression; B12 deficiency; Type 2 diabetes mellitus with hyperglycemia, with long-term current use of insulin (HCC); Lip laceration, initial encounter Start: 04-16-2022 Refill Luis santos DO Work Phone: [facility] [place] Comment on above: Med Change Request ( Humulin 70/30) Start: 03-31-2022 Refill Chago Baker AFFILIATE MARKETING SPECIALIST.DITCH DIGGER Work Phone: [facility] [place] Comment on above: Refill Request Start: 12-11-2021 End: 12-11-2021 [facility] Chago Zayas AFFILIATE MARKETING SPECIALIST.DITCH DIGGER Work Phone: [facility] [place] Comment on above: Type 2 diabetes travon itus without complication, with long-term current use of insulin (HCC) (Primary Dx); Essential hypertension; Vitamin D deficiency; Chest pain, unspecified type; Primary insomnia; Adjustment disorder, unspecified type; Chronic right shoulder pain; Screening for thyroid disorder; Screening for prostate cancer; Mixed hyperlipidemia Start: 12-10-2021 Telephone encounter Luis cruz DO Work Phone: [facility] [place] Comment on above: Future Appointment ( apt for 12-11-21. Requesting a phone apt. ) Start: 10-15-2021 Refill Luis santos DO Work Phone: [facility] [place] Comment on above: Refill Request Start: 08-14-2021 Refill Luis santos DO Work Phone: [facility] [place] Comment on above: Refill Request Start: 08-05-2021 ambulatory Luis santos DO Work Phone: [facility] [place] Comment on above: scrotum cyst Start: 06-21-2021 Telephone encounter Luis cruz DO Work Phone: [facility] [place] Comment on above: Patient Question Start: 05-24-2021 Refill Luis santos DO Work Phone: [facility] [place] Comment on above: Refill Request Procedures Date Procedure Procedure Detail Performing Clinician Start: 12-17-2018 Adult depression screening assessment Luis Arredondo DO Work Phone: Plan of Treatment Date Care Activity Detail Author Start: 06-21-2024 Urine microalbumin profile [facility] Start: 10-11-2023 Influenza vaccination [facility] Start: 09-23-2023 ANNUAL PCP TEAM CHIEF VENDOR QUALITY FRANDY DISEASE VISIT ANNUAL PCP TEAM CHRONIC DISEASE VISIT [facility] Start: 09-23-2023 BP CONTROLLED (<130/80) BP CONTROLLE D (<130/80) [facility] Start: 09-23-2023 Pneumococcal Vaccine : 65+ (2 - PCV) Pneumococcal Vaccine: 65+ (2 - PCV) [facility] Comment on above: Postponed from 06/21 (Declined at this time) Start: 09-23-2023 Pneumococcal Vaccine : 65+ (2 of 2 - PCV) Pneumococcal Vaccine: 65+ (2 of 2 - PCV) [facility] Comment on above: Postponed from 06/21 (Declined at this time) Start: 09-23-2023 PNEUMOCOCCAL: 65+ (2 - PCV) PNEUMOCOCCAL: 65+ (2 - PCV) [facility] Comment on above: Postponed from 06/21 (Declined at this time) Start: 02-09-2023 Advance Directive Discussion Advance Directive Discussion [facility] Start: 02-09-2023 Behavioral Health Screening Behavioral Health Screening [facility] Start: 02-09-2023 Depression Assessment Depression Ass essment [facility] Start: 12-11-2022 ANNUAL PCP TEAM CHIEF VENDOR QUALITY FRANDY DISEASE VISIT ANNUAL PCP TEAM CHRONIC DISEASE VISIT [facility] Start: 10-10-2022 Covid-19 Vaccine (2022- season) Covid-19 Vaccine ( season) [facility] Start: 10-10-2022 Influenza vaccination [facility] Start: 09-22-2022 End: 11-22-2022 25-hydroxyvitamin D3 [Mass/volume] in Serum or Plasma VITAMIN D 25 HYDROXY Lab Routine Vitamin D deficiency Expected: 09/22/2022, Expires: 11/22/2022 [facility] Work Phone: Comment on above: Expected: 09/22/2022 , Expires: 11/22/2022 Start: 09-22-2022 End: 11-22-2022 ALBUMIN/CREAT RATIO RND UR ALBUMIN/CREAT RATIO RND UR Lab Routine Type 2 diabetes mellitus without complication, with long-term current use of insulin (HCC) Expected: 09/22/2022, Expires: 11/22/2022 [facility] Work Phone: Comment on above: Expected: 09/22/2022 , Expires: 11/22/2022 Start: 09-22-2022 End: 11-22-2022 CBC W Auto Differential panel - Blood CBC + DIFF Lab Routine Type 2 diabetes mellitus without complication, with long-term current use of insulin (HCC) Essential hypertension Mixed hyperlipidemia Expected: 09/22/2022, Expires: 11/22/2022 [facility] Work Phone: Comment on above: Expected: 09/22/2022 , Expires: 11/22/2022 Start: 09-22-2022 End: 11-22-2022 Cobalamin (Vitamin B12) [Mass/volume] in Serum or Plasma VITAMIN B12 BLOOD Lab Routine B12 deficiency Expected: 09/22/2022, Expires: 11/22/2022 [facility] Work Phone: Comment on above: Expected: 09/22/2022 , Expires: 11/22/2022 Start: 09-22-2022 End: 11-22-2022 Comprehensive metabolic 2000 panel - Serum or Plasma COMP METABOLIC PANEL Lab Routine Type 2 diabetes mellitus without complication, with long-term current use of insulin ([facility]) Essential hypertension Mixed hyperlipidemia Expected: 09/22/2022, Expires: 11/22/2022 [facility] Work Phone: Comment on above: Expected: 09/22/2022 , Expires: 11/22/2022 Start: 09-22-2022 End: 11-22-2022 Hemoglobin A1c in Blood HGB A1C Lab Routine Type 2 diabetes mellitus without complication, with long-term current use of insulin ([facility]) Expected: 09/22/2022, Expires: 11/22/2022 [facility] Work Phone: Comment on above: Expected: 09/22/2022 , Expires: 11/22/2022 Start: 09-22-2022 End: 11-22-2022 Lipid 1996 panel - Serum or Plasma LIPID PANEL BASIC Lab Routine Mixed hyperlipidemia Expected: 09/22/2022, Expires: 11/22/2022 [facility] Work Phone: Comment on above: Expected: 09/22/2022 , Expires: 11/22/2022 Start: 09-22-2022 End: 11-22-2022 PSA/PROSTSPECAG SCRN PSA/PROSTSPECAG SCRN Lab Routine Screening for prostate cancer Expected: 09/22/2022, Expires: 11/22/2022 [facility] Work Phone: Comment on above: Expected: 09/22/2022 , Expires: 11/22/2022 Start: 04-02-2022 End: 06-02-2022 25-hydroxyvitamin D3 [Mass/volume] in Serum or Plasma VITAMIN D 25 HYDROXY Lab Routine Vitamin D deficiency Expected: 04/02/2022, Expires: 06/02/2022 [facility] Work Phone: Comment on above: Expected: 04/02/2022 , Expires: 06/02/2022 Start: 04-02-2022 End: 06-02-2022 CBC W Auto Differential panel - Blood CBC + DIFF Lab Routine Essential hypertension Expected: 04/02/2022, Expires: 06/02/2022 [facility] Work Phone: Comment on above: Expected: 04/02/2022 , Expires: 06/02/2022 Start: 04-02-2022 End: 06-02-2022 Comprehensive metabolic 2000 panel - Serum or Plasma COMP METABOLIC PANEL Lab Routine Essential hypertension Expected: 04/02/2022, Expires: 06/02/2022 [facility] Work Phone: Comment on above: Expected: 04/02/2022 , Expires: 06/02/2022 Start: 04-02-2022 End: 06-02-2022 Hemoglobin A1c in Blood HGB A1C Lab Routine Type 2 diabetes mellitus without complication, with long-term current use of insulin (HCC) Expected: 04/02/2022, Expires: 06/02/2022 [facility] Work Phone: Comment on above: Expected: 04/02/2022 , Expires: 06/02/2022 Start: 04-02-2022 End: 06-02-2022 Lipid 1996 panel - Serum or Plasma LIPID PANEL BASIC Lab Routine Essential hypertension Expected: 04/02/2022, Expires: 06/02/2022 [facility] Work Phone: Comment on above: Expected: 04/02/2022 , Expires: 06/02/2022 Start: 03-31-2022 PROSTATE CANCER SCREENING DISCUSSION PROSTATE CANCER SCREENING DISCUSSION [facility] Start: 03-31-2022 Prostate specific antigen measurement Prostate Cancer Screening Discussion [facility] Start: 02-09-2022 ADVANCE DIRECTIVE DISCUSSION ADVANCE DIRECTIVE DISCUSSION [facility] Start: 02-09-2022 DEPRESSION ASSESSMENT DEPRESSION ASS ESSMENT [facility] Start: 12-11-2021 End: 02-10-2022 25-hydroxyvitamin D3 [Mass/volume] in Serum or Plasma VITAMIN D 25 HYDROXY Lab Routine Vitamin D deficiency Expected: 12/11/2021, Expires: 02/10/2022 [facility] Work Phone: Comment on above: Expected: 12/11/2021 , Expires: 02/10/2022 Start: 12-11-2021 End: 02-10-2022 CBC panel - Blood by Automated count CBC Lab Routine Essential hypertension Expected: 12/11/2021, Expires: 02/10/2022 [facility] Work Phone: Comment on above: Expected: 12/11/2021 , Expires: 02/10/2022 Start: 12-11-2021 End: 02-10-2022 Comprehensive metabolic 2000 panel - Serum or Plasma COMP METABOLIC PANEL Lab Routine Essential hypertension Expected: 12/11/2021, Expires: 02/10/2022 [facility] Work Phone: Comment on above: Expected: 12/11/2021 , Expires: 02/10/2022 Start: 12-11-2021 End: 02-10-2022 Hemoglobin A1c in Blood HGB A1C Lab Routine Type 2 diabetes mellitus without complication, with long-term current use of insulin (HCC) Expected: 12/11/2021, Expires: 02/10/2022 [facility] Work Phone: Comment on above: Expected: 12/11/2021 , Expires: 02/10/2022 Start: 12-11-2021 End: 02-10-2022 Lipid 1996 panel - Serum or Plasma LIPID PANEL BASIC Lab Routine Mixed hyperlipidemia Expected: 12/11/2021, Expires: 02/10/2022 [facility] Work Phone: Comment on above: Expected: 12/11/2021 , Expires: 02/10/2022 Start: 12-11-2021 End: 02-10-2022 PSA/PROSTSPECAG SCRN PSA/PROSTSPECAG SCRN Lab Routine Screening for prostate cancer Expected: 12/11/2021, Expires: 02/10/2022 [facility] Work Phone: Comment on above: Expected: 12/11/2021 , Expires: 02/10/2022 Start: 12-11-2021 End: 02-10-2022 Thyrotropin [Units/volume] in Serum or Plasma TSH BLD Lab Routine Screening for thyroid disorder Expected: 12/11/2021, Expires: 02/10/2022 [facility] Work Phone: Comment on above: Expected: 12/11/2021 , Expires: 02/10/2022 Start: 10-10-2021 [facility] Start: 08-14-2021 End: 10-14-2021 25-hydroxyvitamin D3 [Mass/volume] in Serum or Plasma VITAMIN D 25 HYDROXY Lab Routine Vitamin D deficiency Expected: 08/14/2021, Expires: 10/14/2021 [facility] Work Phone: Comment on above: Expected: 08/14/2021 , Expires: 10/14/2021 Start: 08-14-2021 End: 10-14-2021 CBC panel - Blood by Automated count CBC Lab Routine Essential hypertension Mixed hyperlipidemia Type 2 diabetes mellitus without complication, with long-term current use of insulin (HCC) Expected: 08/14/2021, Expires: 10/14/2021 [facility] Work Phone: Comment on above: Expected: 08/14/2021 , Expires: 10/14/2021 Start: 08-14-2021 End: 10-14-2021 Comprehensive metabolic 2000 panel - Serum or Plasma COMP METABOLIC PANEL Lab Routine Essential hypertension Mixed hyperlipidemia Type 2 diabetes mellitus without complication, with long-term current use of insulin (HCC) Expected: 08/14/2021, Expires: 10/14/2021 [facility] Work Phone: Comment on above: Expected: 08/14/2021 , Expires: 10/14/2021 Start: 08-14-2021 End: 10-14-2021 Hemoglobin A1c in Blood HGB A1C Lab Routine Type 2 diabetes mellitus without complication, with long-term current use of insulin (HCC) Expected: 08/14/2021, Expires: 10/14/2021 [facility] Work Phone: Comment on above: Expected: 08/14/2021 , Expires: 10/14/2021 Start: 08-14-2021 End: 10-14-2021 Lipid 1996 panel - Serum or Plasma LIPID PANEL BASIC Lab Routine Mixed hyperlipidemia Expected: 08/14/2021, Expires: 10/14/2021 [facility] Work Phone: Comment on above: Expected: 08/14/2021 , Expires: 10/14/2021 Start: 08-14-2021 End: 10-14-2021 Thyrotropin [Units/volume] in Serum or Plasma TSH BLD Lab Routine Screening for thyroid disorder Expected: 08/14/2021, Expires: 10/14/2021 [facility] Work Phone: Comment on above: Expected: 08/14/2021 , Expires: 10/14/2021 Start: 08-01-2021 ANNUAL PCP TEAM CHIEF VENDOR QUALITY FRANDY DISEASE VISIT ANNUAL PCP TEAM CHRONIC DISEASE VISIT [facility] Start: 02-09-2021 ADVANCE DIRECTIVE DISCUSSION ADVANCE DIRECTIVE DISCUSSION [facility] Start: 02-09-2021 DEPRESSION ASSESSMENT DEPRESSION ASS ESSMENT [facility] Start: 08-04-2020 COVID-19 VACCINE (2 - Moderna series) COVID-19 VACCINE (2 - Moderna series) [facility] Start: 07-11-2020 PNEUMOVAX AGE 65 AND OVER WITH 5YR LOOKBACK (#1) PNEUMOVAX AGE 65 AND OVER WITH 5YR LOOKBACK (#1) [facility] Start: 07-07-2020 COVID-19 VACCINE (2 - Moderna series) COVID-19 VACCINE (2 - Moderna series) [facility] Start: 12-18-2019 Adult depression screening assessment DEPRESSION SCREENING [facility] Start: 05-25-2019 Hepatitis B surface antibody level LDL CHOLESTEROL [facility] Start: 12-15-2018 3 comp foot exam completed DIABETIC FOOT EXAM [facility] Start: 12-15-2018 BP CONTROLLED (<130/80) BP CONTROLLE D (<130/80) [facility] Start: 12-15-2018 Diabetic foot examination Diabetic Foot Exam [facility] Start: 08-23-2018 Hemoglobin A1c measurement HbA1C [facility] Start: 08-23-2018 Hemoglobin A1c/Hemoglobin.total in Blood HBA1C [facility] Start: 01-12-2018 Hepatitis B screening URINE AL BUMIN:CREATININE RATIO [facility] Start: 2015 Hepatitis B Vaccine (1 of 3 - Risk 3-dose series) Hepatitis B Vaccine (1 of 3 - Risk 3-dose series) [facility] Start: 2015 RSV Vaccine (1 - 1-d ose 60+ series) RSV Vaccine (1 - 1-dose 60+ series) [facility] Start: 06-22-2015 PNEUMOCOCCAL: 65+ (2 - PCV) PNEUMOCOCCAL: 65+ (2 - PCV) [facility] Start: 07-11-2005 SHINGRIX VACCINE (1 of 2) SHINGRIX VACCINE (1 of 2) [facility] Start: 07-11-2000 COLOGUARD (FIT-DNA) COLOGUARD (FIT-D NA) [facility] Start: 07-11-2000 Colonoscopy COLONOSCOPY [facility] Start: 07-11-2000 COLORECTAL CANCER SCREENING COLORECTAL CANCER SCREENING [facility] Start: 07-11-[address] COLONOGRAPHY [facility] Start: 07-11-2000 FECAL OCCULT BLOOD FECAL OCCULT BLOO D [facility] Start: 07-11-2000 Screening for malign ant neoplasm of colon [facility] Start: 07-11-2000 SIGMOIDOSCOPY SIGMOIDOSCOPY [facility] Start: 07-11-1985 Zoledronic acid therapy ALPHA- 1 ANTITRYPSIN DEFICIENCY SCREENING [facility] Start: 07-11-1973 HIV SCREENING HIV SCREENING [facility] Start: 07-11-1965 Glaucoma screening Dilated Retinal E xam [facility] Start: 07-11-1965 Hepatitis C antibody , confirmatory test DILATED RETINAL EXAM [facility] Start: 07-11-1960 COVID-19 VACCINE (#1) COVID-19 VACCI NE (#1) [facility] Start: 07-11-1960 COVID-19 VACCINE (1) COVID-19 VACCIN E (1) [facility] Start: 1955 ABDOMINAL AORTIC ANEURYSM SCREENING ABDOMINAL AORTIC ANEURYSM SCREENING [facility] Start: 1955 Abdominal aortic aneurysm screening Abdominal Aortic Aneurysm Screening [facility] End: 10-22-2023 LUNG VOLUMES LUNG VOLUMES PFT Routine COPD with chronic bronchitis (HCC) 1 Occurrences starting 09/22/2022 until 10/22/2023 [facility] Work Phone: Comment on above: 1 Occurrences starti ng 09/22/2022 until 10/22/2023 End: 10-22-2023 Radex facial bones complete minimum 3 views XR FACIAL BONES 3V AP/LAT/PEREA Radiology Routine Fall, initial encounter 1 Occurrences starting 09/22/2022 until 10/22/2023 [facility] Work Phone: Comment on above: 1 Occurrences starti ng 09/22/2022 until 10/22/2023 End: 10-22-2023 SPIROMETRY - BASELINE AND POST DILATOR SPIROMETRY - BASELINE AND POST DILATOR PFT Routine COPD with chronic bronchitis (HCC) 1 Occurrences starting 09/22/2022 until 10/22/2023 [facility] Work Phone: Comment on above: 1 Occurrences starti ng 09/22/2022 until 10/22/2023 [facility] Immunizations Immunization Date Immunization Notes Care Provider Flash echavarria 11-24-2018 influenza, seasonal, injectable Luis Arredondo DO Work Phone: [facility] Work Phone: 11-24-2018 influenza virus vacc ine, unspecified formulation Luis Arredondo DO Work Phone: [facility] 12-15-2017 influenza, injectabl e, quadrivalent, contains preservative Luis Arredondo DO Work Phone: [facility] Work Phone: 06-21-2014 pneumococcal polysaccharide vaccine, 23 valent Luis Arredondo DO Work Phone: [facility] Work Phone: 06-21-2014 tetanus toxoid, redu kenya diphtheria toxoid, and acellular pertussis vaccine, adsorbed Luis Arredondo DO Work Phone: [facility] Work Phone: 01-13-2014 influenza, seasonal, injectable Luis Arredondo DO Work Phone: [facility] Work Phone: Payers Date Payer Category Payer Medicare [id number] 2021 Medicaid MEDICAID [facility] MEDICAID [id number] 2021-Present [phone] [address] [place] [address] Medicaid [id number] 2021 Medicaid [id number] 2021 Medicare [id number] 2018 Medicaid [employer] [facility] MEDICA[facility] [id number] 2018-Present [phone] [address] [place] [address] Medicaid [id number] Social History Date Type Detail Facility Start: 01-13-2014 End: 09-22-2022 Tobacco smoking status NHIS Smokes tobacco daily [facility] Work Phone: History of tobacco use Cigarette Smoker [facility] Work Phone: Start: 01-13-2014 End: 09-15-2022 Cigarettes smoked current (pack per day) - Reported 0.5 [facility] Start: 01-13-2014 End: 09-22-2022 Tobacco use and exposure Smokeless tobacco non-user [facility] Work Phone: Start: 08-01-2020 End: 09-22-2022 Alcohol intake Current non-drinker of alcohol (finding) [facility] Start: 1955 Sex Assigned At Not on file [facility] Start: 05-11-2021 End: 10-15-2021 Exposure to SARS-CoV-2 (event) Not sure [facility] Start: 09-15-2022 End: 09-22-2022 Tobacco use panel [facility] Adult Depression Screening Assessment 0 [facility] Medical Equipment Procedure Code Equipment Code Equipment Origin al Text Equipment Identifier Dates [id number], [id number], [id number] Start: 04-11-2019 End: 04-10-2023 Comment on above: Use as instructed. C heck blood sugars 3-4 times daily. Use one needle per d ose. 2 per day. Use four times daily . Dx: E11.65 Use two times daily. Dx: E11.65 Goals Date Patient Goal Desired Activity /State Personal health goal Personal health goal Personal health goal Clinical Notes 05-24-2021 to 08-25-2023 Telephone Encounter - Sydney Rhodes - 08/25/2023 8:07 AM EDTTelephone Encounter - Sydney Rhodes - 08/25/2023 8:07 AM EDTTelephone Encounter - Gema Armando LPN - 05/27/2023 12:01 PM EDT Note Date & Type Note Facility 08-25-2023 Telephone encounter Note Prescription Refill Information The patient has been identified by name and date of : Yes Caregiver verified no other encounters exist for this prescription request: Yes Caregiver confirmed with patient/requestor that no other refills are due, in the near future, with this provider at this time: Yes The last office visit in the department: 09/22/22 Does the patient have a future office visit with this provider/department: Yes Requested Prescriptions Pending Prescriptions Disp Refills amitriptyline (ELAVIL) 50 mg tablet 60 tablet 0 Sig: Take 1-2 tablets by mouth daily at bedtime. metoprolol tartrate, short acting, (LOPRESSOR) 50 mg tablet 60 tablet 0 Sig: Take 1 tablet by mouth two times a day. lisinopril (ZESTRIL) 40 mg tablet 90 tablet 0 Sig: Take 1 tablet by mouth once daily. nitroglycerin sublingual (NITROQUICK) 0.4 mg SL tablet 25 tablet 0 Sig: Dissolve 1 tablet under the tongue every 5 minutes as needed for chest pain. sertraline (ZOLOFT) 50 mg tablet 90 tablet 0 Sig: Take 1 tablet by mouth once daily. Total of 150 mg daily sertraline (ZOLOFT) 100 mg tablet 90 tablet 0 Sig: Take 1 tablet by mouth once daily. hydroCHLOROthiazide 25 mg tablet 90 tablet 3 Sig: Take 1 tablet by mouth once daily. cyclobenzaprine (FLEXERIL) 10 mg tablet 20 tablet 0 Sig: Take 1 tablet by mouth three times a day as needed for muscle spasm. albuterol HFA (VENTOLIN HFA) 90 mcg/actuation inhaler 18 g 0 Sig: Inhale 2 Puffs as instructed every 4 hours as needed for wheezing/shortness of breath. Sydney Soliz Pss August 25, 2023 8:08 AM [facility] 08-25-2023 Miscellaneous Notes Prescription Refill Information The patient has been identified by name and date of : Yes Caregiver verified no other encounters exist for this prescription request: Yes Caregiver confirmed with patient/requestor that no other refills are due, in the near future, with this provider at this time: Yes The last office visit in the department: 09/22/22 Does the patient have a future office visit with this provider/department: Yes Requested Prescriptions Pending Prescriptions Disp Refills amitriptyline (ELAVIL) 50 mg tablet 60 tablet 0 Sig: Take 1-2 tablets by mouth daily at bedtime. metoprolol tartrate, short acting, (LOPRESSOR) 50 mg tablet 60 tablet 0 Sig: Take 1 tablet by mouth two times a day. lisinopril (ZESTRIL) 40 mg tablet 90 tablet 0 Sig: Take 1 tablet by mouth once daily. nitroglycerin sublingual (NITROQUICK) 0.4 mg SL tablet 25 tablet 0 Sig: Dissolve 1 tablet under the tongue every 5 minutes as needed for chest pain. sertraline (ZOLOFT) 50 mg tablet 90 tablet 0 Sig: Take 1 tablet by mouth once daily. Total of 150 mg daily sertraline (ZOLOFT) 100 mg tablet 90 tablet 0 Sig: Take 1 tablet by mouth once daily. hydroCHLOROthiazide 25 mg tablet 90 tablet 3 Sig: Take 1 tablet by mouth once daily. cyclobenzaprine (FLEXERIL) 10 mg tablet 20 tablet 0 Sig: Take 1 tablet by mouth three times a day as needed for muscle spasm. albuterol HFA (VENTOLIN HFA) 90 mcg/actuation inhaler 18 g 0 Sig: Inhale 2 Puffs as instructed every 4 hours as needed for wheezing/shortness of breath. Sydnye Soliz Pss August 25, 2023 8:08 AM documented in this encounter [facility] 05-27-2023 Miscellaneous Notes Patient has been identified by name and date of : Yes, Provider Dr. Arredondo Date 05/27/23 Time 12:02 Patient phones for refill(s): Requested Prescriptions Pending Prescriptions Disp Refills amitriptyline (ELAVIL) 50 mg tablet 60 tablet 0 Sig: Take 1-2 tablets by mouth daily at bedtime. lisinopril (ZESTRIL) 40 mg tablet 90 tablet 0 Sig: Take 1 tablet by mouth once daily. metoprolol tartrate, short acting, (LOPRESSOR) 50 mg tablet 60 tablet 0 Sig: Take 1 tablet by mouth two times a day. sertraline (ZOLOFT) 100 mg tablet 90 tablet 0 Sig: Take 1 tablet by mouth once daily. sertraline (ZOLOFT) 50 mg tablet 90 tablet 0 Sig: Take 1 tablet by mouth once daily. Total of 150 mg daily Date of last office visit in primary care: 09/22/2022 Date of next office visit in primary care: Visit date not found Please advise. Thank you. Gema Armando LPN. Patient has been identified by name and date of : Yes, Provider Matty Patient phones for refill(s): Requested Prescriptions Pending Prescriptions Disp Refills amitriptyline (ELAVIL) 50 mg tablet 60 tablet 0 Sig: Take 1-2 tablets by mouth daily at bedtime. lisinopril (ZESTRIL) 40 mg tablet 90 tablet 0 Sig: Take 1 tablet by mouth once daily. metoprolol tartrate, short acting, (LOPRESSOR) 50 mg tablet 60 tablet 0 Sig: Take 1 tablet by mouth two times a day. sertraline (ZOLOFT) 100 mg tablet 90 tablet 0 Sig: Take 1 tablet by mouth once daily. sertraline (ZOLOFT) 50 mg tablet 90 tablet 0 Sig: Take 1 tablet by mouth once daily. Total of 150 mg daily Date of last office visit in primary care: 09/22/2022 Date of next office visit in primary care: Visit date not found Please advise. Thank you. Florencia Cook Pss. documented in this encounter [facility] 05-20-2023 Miscellaneous Notes Pharmacy verified in Epic Patient has been identified by name and date of : Yes Patient aware RX will be sent to pharmacy. No need to notify patient. Patient phones for refill(s): Requested Prescriptions Pending Prescriptions Disp Refills nitroglycerin sublingual (NITROQUICK) 0.4 mg SL tablet 25 tablet 0 Sig: Dissolve 1 tablet under the tongue every 5 minutes as needed for chest pain. Date of last office visit : 09/22/2022 Date of next office visit : Visit date not found Last 2 Encounter Wt Readings: Date: Wt: 09/22/2022 90.7 kg (200 lb) 08/01/2020 0 kg () Not applicable Please advise. Darlene Olivares Pss documented in this encounter [facility] 04-10-2023 Miscellaneous Notes The following approved medication requests have been transmitted electronically. Requested Prescriptions Signed Prescriptions Disp Refills Blood-Glucose Meter monitoring kit 1 Each 0 Sig: Glucose Meter of Choice - Kit - Dx: Type 2 DM - Uncontrolled E11.65 Authorizing Provider: LUIS ARREDONDO DO Cory is calling Luis Arredondo DO today to request Refill Request (needs a new glucometer to match his test strips as he recently broke it when it fell ) Patient has been identified by name and birthdate. Duration of symptoms: N/A Person calling: self Call patient at: at home [phone] (home) [phone] (cell) Was an appointment scheduled: No Closing statement: Results or non-symptom based questions: Thank you for calling [facility], your call will be returned within the next business day. Sydney Argueta documented in this encounter [facility] 04-10-2023 Miscellaneous Notes Patient has been identified by name and date of : Yes Requested Prescriptions Pending Prescriptions Disp Refills albuterol HFA (VENTOLIN HFA) 90 mcg/actuation inhaler 18 g 0 Sig: Inhale 2 Puffs as instructed every 4 hours as needed for wheezing/shortness of breath. blood sugar diagnostic (EMBRACE TALK TEST STRIPS) test strip 120 Strip 0 Sig: Use as instructed. Check blood sugars 3-4 times daily. RX INSTRUCTIONS: Patient aware RX will be sent to pharmacy. No need to notify patient. Sydney Argueta documented in this encounter [facility] 03-31-2023 Miscellaneous Notes Patient has been identified by name and date of : Yes Requested Prescriptions Pending Prescriptions Disp Refills sertraline (ZOLOFT) 50 mg tablet 90 tablet 0 Sig: Take 1 tablet by mouth once daily. Total of 150 mg daily sertraline (ZOLOFT) 100 mg tablet 90 tablet 0 Sig: Take 1 tablet by mouth once daily. amitriptyline (ELAVIL) 50 mg tablet 60 tablet 0 Sig: Take 1-2 tablets by mouth daily at bedtime. nitroglycerin sublingual (NITROQUICK) 0.4 mg SL tablet 25 tablet 0 Sig: Dissolve 1 tablet under the tongue every 5 minutes as needed for chest pain. metoprolol tartrate, short acting, (LOPRESSOR) 50 mg tablet 60 tablet 0 Sig: Take 1 tablet by mouth two times a day. RX INSTRUCTIONS: Patient aware RX will be sent to pharmacy. No need to notify patient. Sydney Argueta documented in this encounter [facility] 03-30-2023 Miscellaneous Notes Telephoned the patient to schedule a new Primary Care pharmacy appt. Not able to leave a message. The mailbox is full. Made two attempts to contact the patient. If the patient calls, an appt will be scheduled. Encounter routed to the clinical pharmacist. Telephoned the patient to schedule a new Primary Care pharmacy appt. No message left, the mailbox is full. documented in this encounter [facility] 03-26-2023 Note Patient Outreach (CLAUDIO MEWO) CORY BAILEY ([id number]) 1955 M Date Time Provider Department 03/26/23 KAMINI WILLIAMSON PHMEWO During your visit today, we recorded the following information about you: Kamini Williamson RPh 03/26/2023 9:25 AM Signed Primary Care Pharmacy Panel Management This patient has been identified through panel management efforts by the primary care pharmacy team. Please contact patient and schedule a pharmacy phone or virtual visit for diabetes management. Please use New Pharmacy, New Pharmacy Phone call, or Video Primary New visit types. Kamini Williamson RPh Allergies As of Date: 03/26/2023 (No Known Allergies) Date Reviewed: 09/22/2022 Reviewed by: Chago Baker APRN.DITCH DIGGER - Fully Assessed Primary Visit Diagnosis:Type 2 diabetes (HCC) [E11.9] Order(s):CONSULT TO PHARMACY [[id number]] Order #: [id number]: 1 Prescriptions as of 03/26/2023 - albuterol HFA (VENTOLIN HFA) 90 mcg/actuation inhaler Inhale 2 Puffs as instructed every 4 hours as needed for wheezing/shortness of breath. - sertraline (ZOLOFT) 100 mg tablet Take 1 tablet by mouth once daily. - sertraline (ZOLOFT) 50 mg tablet Take 1 tablet by mouth once daily. Total of 150 mg daily - hydroCHLOROthiazide 25 mg tablet Take 1 tablet by mouth once daily. - amitriptyline (ELAVIL) 50 mg tablet Take 1-2 tablets by mouth daily at bedtime. - Insulin Syringe-Needle U-100 1 mL 27 gauge x 5/8 Use two times daily. Dx: E11.65 - insulin 70/30 NPH-regular units/mL 100 unit/mL suspension Inject 14 Units subcutaneously twice daily with meals. - insulin 70/30 NPH-regular units/mL (HUMULIN 70/30 U-100 KWIKPEN) 100 unit/mL (70-30) pen Inject 14 Units subcutaneously twice daily with meals. - metoprolol tartrate, short acting, (LOPRESSOR) 50 mg tablet Take 1 tablet by mouth twice daily. - lisinopril (ZESTRIL, PRINIVIL) 40 mg tablet Take 1 tablet by mouth once daily. - cholecalciferol, Vitamin D3, (VITAMIN D3) 1,250 mcg (50,000 unit) cap capsule Take 1 capsule by mouth one time a week. - cyclobenzaprine (FLEXERIL) 10 mg tablet Take 1 tablet by mouth three times daily as needed for muscle spasm. - gabapentin (NEURONTIN) 600 mg tablet Take 1 tablet by mouth three times daily for 90 days. - blood sugar diagnostic (EMBRACE TALK TEST STRIPS) test strip Use as instructed. Check blood sugars 3-4 times daily. - nitroglycerin sublingual (NITROQUICK) 0.4 mg SL tablet Dissolve 1 tablet under the tongue every 5 minutes as needed for chest pain. - insulin lispro (ADMELOG U-100 INSULIN LISPRO) 100 unit/mL injection Inject 2-10 Units subcutaneously three times daily with meals. - acetaminophen (TYLENOL EXTRA STRENGTH) 500 mg tablet Take 1 tablet by mouth every 4 hours as needed for Pain. - insulin needles, DISPOSABLE, (PEN NEEDLE) 31 gauge x 5/16 Use one needle per dose. 2 per day. - Aspirin 81 mg Tab Take 1 tablet by mouth once daily. Take with food. Meds Comments as of 11/12/2018: 11/12/18 states he no longer takes ASA 81 mg daily. Jessica Gutiérrez RN Problem List As Of Date 03/26/2023 Noted Resolved Panic attack [F41.0] 09/14/2012 Adjustment disorder [F43.20] 09/14/2012 Essential hypertension [I10] 05/10/2015 Pericardial effusion (noninflammatory) [I31.39] 05/10/2015 Mixed hyperlipidemia [E78.2] 05/10/2015 Type 2 diabetes mellitus without complication (*05/10/2015 Corporo-venous occlusive erectile dysfunction [*04/29/2016 Diabetic ketoacidosis without coma associated w*04/30/2016 COPD (chronic obstructive pulmonary disease) (H*07/19/2018 Cardiomegaly [I51.7] 07/19/2018 Marijuana user [F12.90] 07/19/2018 Type 2 diabetes mellitus with hyperglycemia, wi*12/20/2018 Chronic midline low back pain without sciatica *12/20/2018 Olecranon bursitis of left elbow [M70.22] 12/20/2018 Primary insomnia [F51.01] 12/20/2018 Shortness of breath [R06.02] 12/20/2018 Wheezing [R06.2] 12/20/2018 Stasis dermatitis of both legs [I87.2] 12/20/2018 Chronic right-sided thoracic back pain [M54.6, *12/20/2018 Chronic right shoulder pain [M25.511, G89.29] 12/20/2018 COPD with chronic bronchitis (HCC) [J44.89] 12/20/2018 Encounter Status:Closed by KAMINI WILLIAMSON on 03/26/23 [facility] 03-26-2023 Note HNO ID: [id number] Author: KAMINI WILLIAMSON RPh Service: ? Author Type: Pharmacist Type: Progress Notes Filed: 03/26/2023 09:25 Note Text: Primary Care Pharmacy Panel Management This patient has been identified through panel management efforts by the primary care pharmacy team. Please contact patient and schedule a pharmacy phone or virtual visit for diabetes management. Please use New Pharmacy, New Pharmacy Phone call, or Video Primary New visit types. Kamini Williamson RPh [facility] 03-26-2023 History of Present illness Narrative Primary Care Pharmacy Panel Management This patient has been identified through panel management efforts by the primary care pharmacy team. Please contact patient and schedule a pharmacy phone or virtual visit for diabetes management. Please use New Pharmacy, New Pharmacy Phone call, or Video Primary New visit types. Kamini Williamson RPh documented in this encounter [facility] 01-02-2023 Miscellaneous Notes Last refill Zoloft 100 mg and 50 mg 09/22/22 Qty: 90 with 0 refills Last refill HCTZ 12/11/21 Qty: 90 with 0 refills LUCIANA 09/22/22 NOV none scheduled pt no showed 10/23/22 Alejandro Arreola LPN Patient has been identified by name and date of : Yes Requested Prescriptions Pending Prescriptions Disp Refills sertraline (ZOLOFT) 100 mg tablet 90 tablet 0 Sig: Take 1 tablet by mouth once daily. sertraline (ZOLOFT) 50 mg tablet 90 tablet 0 Sig: Take 1 tablet by mouth once daily. Total of 150 mg daily hydroCHLOROthiazide 25 mg tablet 90 tablet 3 Sig: Take 1 tablet by mouth once daily. RX INSTRUCTIONS: Patient aware RX will be sent to pharmacy. No need to notify patient. Paige Goncalves documented in this encounter [facility] 12-17-2022 Miscellaneous Notes Pharmacy verified in Epic Patient has been identified by name and date of : Yes Patient aware RX will be sent to pharmacy. No need to notify patient. Patient phones for refill(s): Requested Prescriptions Pending Prescriptions Disp Refills albuterol HFA (VENTOLIN HFA) 90 mcg/actuation inhaler 18 g 0 Sig: Inhale 2 Puffs as instructed every 4 hours as needed for wheezing/shortness of breath. amitriptyline (ELAVIL) 50 mg tablet 60 tablet 0 Sig: Take 1-2 tablets by mouth daily at bedtime. Date of last office visit : 09/22/2022 Date of next office visit : Visit date not found Last 2 Encounter Wt Readings: Date: Wt: 09/22/2022 90.7 kg (200 lb) 08/01/2020 0 kg () Not applicable Please advise. Darlene Roxy Olivares Pss documented in this encounter [facility] 09-25-2022 Miscellaneous Notes Phoned patient and went over notes below, aware rx x 2 were sent to pharmacy with understanding. Please call pt and let him know this is sent. The following approved medication requests have been transmitted electronically. Requested Prescriptions Signed Prescriptions Disp Refills Insulin Syringe-Needle U-100 1 mL 27 gauge x 5/8 100 Each 5 Sig: Use two times daily. Dx: E11.65 Authorizing Provider: CHAGO BAKER insulin 70/30 NPH-regular units/mL 100 unit/mL suspension 10 mL 11 Sig: Inject 14 Units subcutaneously twice daily with meals. Authorizing Provider: CHAGO BAKER APRN.NISHA Pt reports yesterday Chago Baker CNP sent Humalin 70/30 kwikpen to [facility] and insurance will not cover kwikpens. Pt needs vials and syringes. Asking if this can be done jose r so [facility] can deliver it. Please review rx. Call pt when done. Patient has been identified by name and date of : Yes Requested Prescriptions Pending Prescriptions Disp Refills Insulin Syringe-Needle U-100 1 mL 27 gauge x 5/8 100 Each 5 Sig: Use two times daily. Dx: E11.65 insulin 70/30 NPH-regular units/mL 100 unit/mL suspension Sig: Inject 14 Units subcutaneously twice daily with meals. RX INSTRUCTIONS: Patient aware RX will be sent to pharmacy. No need to notify patient. Ruth Churchill LPN documented in this encounter [facility] 09-22-2022 Note HNO ID: [id number] Author: Chago Baker APRN.NISHA Service: ? Author Type: Nurse Practitioner Type: Progress Notes Filed: 09/22/2022 4:35 PM Note Text: Chief Complaint Patient presents with: Physical HPI Cory Bailey is a 67 year old male who presents here today for Above Complaints. Cory is an established patient of Dr. Arredondo, and myself. Concerns today.. Routine annual physical. Has not been seen in office by PCP team since 2019. Pt ran out of all medication x 1-2 months now. Was getting 70/30 insulin over the counter, but no other medications. Fall--- Had a fall 8 days ago. Sock was falling off and pt tripped over his own sock. Fell forward and hit face on bathroom floor. No LOC. No dizziness prior to or after. Pt denies any headaches, vision changes, LOC, or any neurological deficits since the fall. L eye is black and blue and pt reports pain and tenderness to touch of nose and L side of face (L cheek and forehead). Pain with opening mouth wide. Pt also bite through bottom lip when he fell. Lip has 2 lacerations with purulent drainage. Due to lip pain, pt has had no appetite and has barely ate since fall. Pt reports general weakness since -- feels this is due to not eating. Using a cane at home since the fall -- before was walking without difficulties without assistive device. Depression/anxeity -- Prescribed zoloft 150 mg daily. Pt reports this regimen works very well but he has been out of medication x 1-2 months. Anxiety is pt's biggest concern/complaint during this visit. Feels his mood/stress/anxiety is causing everything else. HTN -- He states non-compliant with current blood pressure medication(s): Metoprolol 50 mg BID, HCTZ 25 mg daily, lisinopril 40 mg daily. He does not check BP at home. Has been out of these medications x 1-2 months. BP in office borderline hypotensive. He denies chest pain, shortness of breath, palpitations, dizziness, leg edema, headaches, or vision changes. Last 14 Encounter BP Readings: Date: BP: 09/22/2022 100/60 08/01/2020 132/90 12/17/2018 138/82 07/19/2018 154/90 06/09/2018 138/78 05/24/2018 152/100 12/15/2017 138/82 10/06/2017 142/98 04/23/2017 90/62 03/31/2017 130/72 01/12/2017 196/110 04/29/2016 124/80 02/20/2016 134/80 01/30/2016 156/80 DM -- Taking 70/30 insulin 14 units BID with meals. No other regimen due to running out and not being seen in office since 2019. Checking blood sugars to be around 160-190 per pt. Last hgA1c was 11.0 in 2019 -- 4 years ago. Denies polyuria, polydipsia, numbness, tingling or pain in extremities, new or unusual visual symptoms, unintended weight changes, lightheadedness/dizziness, bowel changes/loose stools, chest pain or dyspnea COPD -- Pt reports baseline SOB. Pt believes SOB related to anxiety. Pt denies any CP, dizziness, or palpitations. SOB no worse with exertion per pt. Albuterol does not seem to help much anymore. Past medical history, appointments, medications, allergies reviewed. Previous Medical History PAST MEDICAL HISTORY Diagnosis Date Anxiety Chronic pain Diabetes mellitus type 2, uncontrolled 2007 Hyperlipidemia LDL goal < 100 Hypertension Migraine Pericardial effusion 2007,2008 drained Previous Surgical History PAST SURGICAL HISTORY Procedure Laterality Date ANTERIOR INTERBODY FUSION, CERVICAL 1991 L-5 S-1 APPENDECTOMY 1962 LAPAROSCOPY SURG CHOLECYSTECTOMY 09/17/12 ROTATOR CUFF REPAIR 1998 Right Family History FAMILY HISTORY Problem Relation Age of Onset Cancer Father bladder Heart Mother Breast Cancer Paternal Grandmother other (Parkinsons [Other]) Paternal Grandfather Patient Allergies ALLERGIES No Known Allergies Current Medications Current Outpatient Medications on File Prior to Visit Medication Sig sertraline (ZOLOFT) 50 mg tablet Take 1 tablet by mouth once daily. Total of 150 mg daily sertraline (ZOLOFT) 100 mg tablet Take 1 tablet by mouth once daily. metoprolol tartrate, short acting, (LOPRESSOR) 50 mg tablet Take 1 tablet by mouth twice daily. lisinopril (ZESTRIL, PRINIVIL) 40 mg tablet Take 1 tablet by mouth once daily. cholecalciferol, Vitamin D3, (VITAMIN D3) 1,250 mcg (50,000 unit) cap capsule Take 1 capsule by mouth one time a week. insulin 70/30 NPH/regular units/mL (HUMULIN 70/30 U-100 KWIKPEN) 100 unit/mL (70-30) Inject 14 Units subcutaneously twice daily with meals. cyclobenzaprine (FLEXERIL) 10 mg tablet Take 1 tablet by mouth three times daily as needed for muscle spasm. albuterol HFA (VENTOLIN HFA) 90 mcg/actuation inhaler Inhale 2 Puffs as instructed every 4 hours as needed for wheezing/shortness of breath. blood sugar diagnostic (EMBRACE TALK TEST STRIPS) test strip Use as instructed. Check blood sugars 3-4 times daily. hydroCHLOROthiazide (HYDRODIURIL, ESIDRIX) 25 mg tablet Take 1 tablet by mouth once daily. insulin lispro (ADMELO (more content not included)... [facility] 09-22-2022 Instructions Chago Baker APRN.NISHA - 09/22/2022 3:19 PM EDT Restart Zoloft. Start with 100 mg x 2-3 weeks. Then restart 150 mg daily. Start buspar 3x per day as needed. Get lab work drawn today. Get x-ray of face. Schedule for spirometry testing. Start antibiotic -- Augmentin 2x per day x 10 days for lip. EKG in office today. documented in this encounter [facility] 09-22-2022 History of Present illness Narrative Chief Complaint Patient presents with: Physical HPI Cory Bailey is a 67 year old male who presents here today for Above Complaints. Cory is an established patient of Dr. Arredondo, and myself. Concerns today.. Routine annual physical. Has not been seen in office by PCP team since 2019. Pt ran out of all medication x 1-2 months now. Was getting 70/30 insulin over the counter, but no other medications. Fall--- Had a fall 8 days ago. Sock was falling off and pt tripped over his own sock. Fell forward and hit face on bathroom floor. No LOC. No dizziness prior to or after. Pt denies any headaches, vision changes, LOC, or any neurological deficits since the fall. L eye is black and blue and pt reports pain and tenderness to touch of nose and L side of face (L cheek and forehead). Pain with opening mouth wide. Pt also bite through bottom lip when he fell. Lip has 2 lacerations with purulent drainage. Due to lip pain, pt has had no appetite and has barely ate since fall. Pt reports general weakness since -- feels this is due to not eating. Using a cane at home since the fall -- before was walking without difficulties without assistive device. Depression/anxeity -- Prescribed zoloft 150 mg daily. Pt reports this regimen works very well but he has been out of medication x 1-2 months. Anxiety is pt's biggest concern/complaint during this visit. Feels his mood/stress/anxiety is causing everything else. HTN -- He states non-compliant with current blood pressure medication(s): Metoprolol 50 mg BID, HCTZ 25 mg daily, lisinopril 40 mg daily. He does not check BP at home. Has been out of these medications x 1-2 months. BP in office borderline hypotensive. He denies chest pain, shortness of breath, palpitations, dizziness, leg edema, headaches, or vision changes. Last 14 Encounter BP Readings: Date: BP: 09/22/2022 100/60 08/01/2020 132/90 12/17/2018 138/82 07/19/2018 154/90 06/09/2018 138/78 05/24/2018 152/100 12/15/2017 138/82 10/06/2017 142/98 04/23/2017 90/62 03/31/2017 130/72 01/12/2017 196/110 04/29/2016 124/80 02/20/2016 134/80 01/30/2016 156/80 DM -- Taking 70/30 insulin 14 units BID with meals. No other regimen due to running out and not being seen in office since 2019. Checking blood sugars to be around 160-190 per pt. Last hgA1c was 11.0 in 2019 -- 4 years ago. Denies polyuria, polydipsia, numbness, tingling or pain in extremities, new or unusual visual symptoms, unintended weight changes, lightheadedness/dizziness, bowel changes/loose stools, chest pain or dyspnea COPD -- Pt reports baseline SOB. Pt believes SOB related to anxiety. Pt denies any CP, dizziness, or palpitations. SOB no worse with exertion per pt. Albuterol does not seem to help much anymore. Past medical history, appointments, medications, allergies reviewed. Previous Medical History PAST MEDICAL HISTORY Diagnosis Date Anxiety Chronic pain Diabetes mellitus type 2, uncontrolled 2007 Hyperlipidemia LDL goal < 100 Hypertension Migraine Pericardial effusion 2007,2008 drained Previous Surgical History PAST SURGICAL HISTORY Procedure Laterality Date ANTERIOR INTERBODY FUSION, CERVICAL 1991 L-5 S-1 APPENDECTOMY 1963 LAPAROSCOPY SURG CHOLECYSTECTOMY 09/17/12 ROTATOR CUFF REPAIR 1998 Right Family History FAMILY HISTORY Problem Relation Age of Onset Cancer Father bladder Heart Mother Breast Cancer Paternal Grandmother other (Parkinsons [Other]) Paternal Grandfather Patient Allergies ALLERGIES No Known Allergies Current Medications Current Outpatient Medications on File Prior to Visit Medication Sig sertraline (ZOLOFT) 50 mg tablet Take 1 tablet by mouth once daily. Total of 150 mg daily sertraline (ZOLOFT) 100 mg tablet Take 1 tablet by mouth once daily. metoprolol tartrate, short acting, (LOPRESSOR) 50 mg tablet Take 1 tablet by mouth twice daily. lisinopril (ZESTRIL, PRINIVIL) 40 mg tablet Take 1 tablet by mouth once daily. cholecalciferol, Vitamin D3, (VITAMIN D3) 1,250 mcg (50,000 unit) cap capsule Take 1 capsule by mouth one time a week. insulin 70/30 NPH/regular units/mL (HUMULIN 70/30 U-100 KWIKPEN) 100 unit/mL (70-30) Inject 14 Units subcutaneously twice daily with meals. cyclobenzaprine (FLEXERIL) 10 mg tablet Take 1 tablet by mouth three times daily as needed for muscle spasm. albuterol HFA (VENTOLIN HFA) 90 mcg/actuation inhaler Inhale 2 Puffs as instructed every 4 hours as needed for wheezing/shortness of breath. blood sugar diagnostic (EMBRACE TALK TEST STRIPS) test strip Use as instructed. Check blood sugars 3-4 times daily. hydroCHLOROthiazide (HYDRODIURIL, ESIDRIX) 25 mg tablet Take 1 tablet by mouth once daily. insulin lispro (ADMELOG U-100 INSULIN LISPRO) 100 unit/mL injection Inject 2-10 Units subcutaneously three times daily with meals. acetaminophen (TYLENOL EXTRA STRENGTH) 500 mg tablet Take 1 tablet by mouth every 4 hours as needed for Pain. insulin needles, DISPOSABLE, (PEN NEEDLE) 31 gauge x 5/16 Use one needle per dose. 2 per day. Insulin Syringe-Needle U-100 1 mL 27 gauge x 5/8 syrg Use four times daily. Dx: E11.65 Aspirin 81 mg Tab Take 1 tablet by mouth once daily. Take with food. amitriptyline (ELAVIL) 50 mg tablet Take 1-2 tablets by mouth daily at bedtime. gabapentin (NEURONTIN) 600 mg tablet Take 1 tablet by mouth three times daily for 90 days. nitroglycerin sublingual (NITROQUICK) 0.4 mg SL tablet Dissolve 1 tablet under the tongue every 5 minutes as needed for chest pain. Benzonatate 200 mg capsule Take 1 capsule by mouth three times daily as needed for Cough. (Patient not taking: Reported on 09/22/2022) No current facility-administered medications on file prior to visit. Social History Social History Tobacco Use Smoking status: Every Day Packs/day: .5 Types: Cigarettes Smokeless tobacco: Never Substance Use Topics Alcohol use: No Drug use: No REVIEW OF SYSTEMS: as above Reviewed relevant PMHx, PSHx, Social Hx, current medications and allergies. Review of Symptoms REVIEW OF SYSTEMS See HPI. EXAM: BP 100/60 (BP Site: Right Arm, BP Position: Sitting, BP Cuff Size: Regular Adult) Pulse 88 Resp 16 Ht 180.3 cm (5' 11 ) Wt 90.7 kg (200 lb) SpO2 97% BMI 27.89 kg/m General Appearance: Well appearing, alert, in no acute distress, well-hydrated, well nourished. and Wheelchair. Skin: Skin color, texture, turgor normal, no suspicious rashes or lesions. Head: Normocephalic, no masses, lesions, tenderness or abnormalities, Facial tenderness. Eyes: Anicteric sclera. Pupils are equally round and reactive to light. Extraocular movements are intact. . Ears: External ears normal, canals clear. Nose/Sinuses: Positive findings: swelling around nose and cheeks, drainage from L nare. Oropharynx: Positive findings: laceration x2 to bottom lip. Purulent drainage to open wound. Neck: Supple, no adenopathy; thyroid symmetric, normal size, no bruits. Back:no pain to palpation of vertebrae, good flexion and extension, good range of motion, no muscle tenderness, reflexes are 2+ and symmetric, motor and sensory appear to be normal, negative SLR test, no evidence of scoliosis Lungs: Lungs clear to auscultation. No wheezing, rhonchi, rales.. Heart: RRR without murmur, gallop, or rubs. No ectopy. Abdomen: Normal abdominal exam, Abdomen soft, non-tender. Bowel sounds normal. No masses, organomegaly. Extremities: No deformities, edema, skin discoloration, clubbing or cyanosis. Good capillary refill. . Health Maintenance List ABDOMINAL AORTIC ANEURYSM SCREENING Never done DILATED RETINAL EXAM Never done ALPHA-1 ANTITRYPSIN DEFICIENCY SCREENING Never done COLORECTAL CANCER SCREENING Never done SHINGRIX VACCINE(1 of 2) Never done URINE ALBUMIN:CREATININE RATIO due on 01/12/2018 HBA1C due on 08/23/2018 DIABETIC FOOT EXAM due on 12/15/2018 BP CONTROLLED (<130/80) due on 12/15/2018 LDL CHOLESTEROL due on 05/25/2019 COVID-19 VACCINE(2 - Moderna series) due on 08/04/2020 ADVANCE DIRECTIVE DISCUSSION Never done DEPRESSION ASSESSMENT Never done PROSTATE CANCER SCREENING DISCUSSION due on 03/31/2022 PNEUMOCOCCAL: 65+(2 - PCV) due on 09/23/2023 INFLUENZA(1) due on 10/10/2022 ANNUAL PCP TEAM CHRONIC DISEASE VISIT due on 12/11/2022 DTAP,TDAP,TD(2 - Td or Tdap) due on 06/21/2024 SPIROMETRY Completed HEPATITIS C SCREENING Completed ASSESSMENT/PLAN: 1. Type 2 diabetes mellitus without complication, with long-term current use of insulin (HCC) - ICD9: 250.00, V58.67, ICD10: E11.9, Z79.4 (primary diagnosis) - Control undetermined, due for labs - Continue current medications pending results. - COMP METABOLIC PANEL - CBC + DIFF - HGB A1C - ALBUMIN/CREAT RATIO RND UR 2. Adjustment disorder, unspecified type - ICD9: 309.9, ICD10: F43.20 - ALBUTEROL SULFATE HFA 90 MCG/ACTUATION AEROSOL INHALER 3. Primary insomnia - ICD9: 307.42, ICD10: F51.01 Refilled. Stable. - AMITRIPTYLINE 50 MG TABLET 4. Vitamin D deficiency - ICD9: 268.9, ICD10: E55.9 Recheck with lab work. - VITAMIN D 25 HYDROXY 5. Essential hypertension - ICD9: 401.9, ICD10: I10 - Controlled BP borderline hypotensive without any medication regimen x 1-2 months. Stay off of medication, RTO in 3-4 weeks to recheck. EKG in office -- NSR with left axis deviation. - COMP METABOLIC PANEL - CBC + DIFF 6. COPD with chronic bronchitis (HCC) - ICD9: 491.20, ICD10: J44.9 Family member believes COPD is much worse than prior. Recheck with spirometry and lung volume testing. Refilled albuterol. - LUNG VOLUMES - SPIROMETRY - BASELINE AND POST DILATOR 7. Mixed hyperlipidemia - ICD9: 272.2, ICD10: E78.2 - Control undetermined, due for labs - Continue current medications - Counseled on healthy diet and regular exercise - COMP METABOLIC PANEL - CBC + DIFF - LIPID PANEL BASIC 8. Fall, initial encounter - ICD9: E888.9, ICD10: W19.XXXA X-ray face to rule out fractures from fall. No neuro deficits -- deemed CT brain/head not necessary. Continue tylenol or motrin as needed. EKG to see if cardiac involvement led to fall. Antibiotic for lip lacerations, see below. - XR FACIAL BONES 3V AP/LAT/PEREA 9. Screening for prostate cancer - ICD9: V76.44, ICD10: Z12.5 - Counseled on healthy diet and regular exercise - PSA/PROSTSPECAG SCRN 10. Generalized weakness - ICD9: 780.79, ICD10: R53.1 EKG in office -- NSR with left axis deviation. Possibly due to borderline hypotension and no appetite/not eating due to lip infection. Possible need for further cardiac work-up - pt declined today. Follow-up in 3-4 weeks for further assessment. 11. JASMINA (generalized anxiety disorder) - ICD9: 300.02, ICD10: F41.1 Restart Zoloft. Start with 100 mg x 2-3 weeks. Then restart 150 mg daily. Start buspar 3x per day as needed. RTO in 3-4 weeks to reassess. - SERTRALINE 100 MG TABLET - SERTRALINE 50 MG TABLET - BUSPIRONE 5 MG TABLET 12. Anxiety and depression - ICD9: 300.00, 311, ICD10: F41.9, F32.A See above. - SERTRALINE 100 MG TABLET - SERTRALINE 50 MG TABLET - BUSPIRONE 5 MG TABLET 13. B12 deficiency - ICD9: 266.2, ICD10: E53.8 Recheck with lab work. - VITAMIN B12 BLOOD 14. Type 2 diabetes mellitus with hyperglycemia, with long-term current use of insulin (HCC) - ICD9: 250.00, 790.29, V58.67, ICD10: E11.65, Z79.4 - Control undetermined, due for labs - Continue current medications pending results. - COMP METABOLIC PANEL - CBC + DIFF - HGB A1C - ALBUMIN/CREAT RATIO RND UR 15. Lip laceration, initial encounter - ICD9: 873.43, ICD10: S01.511A Start augmentin BID x 10 days d/t laceration from teeth through lip during recent fall. Reassess at follow-up in 3-4 weeks. - AMOXICILLIN 875 MG-POTASSIUM CLAVULANATE 125 MG TABLET RTO in 3-4 weeks, sooner if needed. Prescription instructions reviewed with patient as applicable. Potential red flag symptoms discussed with the patient. Reviewed appropriate action plan to take if red flag symptoms occur. Patient agreeable to treatment plan. Chago Zayas APRN.DITCH DIGGER [id number] [place] [address] documented in this encounter [facility] 04-24-2022 Miscellaneous Notes Spoke with spouse and she will patient call to schedule Please assist with scheduling 40 min appt Chelsi Rizzo Pt needs appointment to assess this. He has no showed 4 appointments in the last few months and has cancelled numerous others. He has not been seen in office in over 1.5 years. Thank you, Chago Baker APRN.DITCH DIGGER Received form from insurance that Humulin 70/30 no longer covered. Please choose alternative below and send -Novolog Mix 70/30 -Novolin 70/30 Christiana Saucedo Ma documented in this encounter [facility] 04-16-2022 Miscellaneous Notes Last office visit: 12/11/21 Next appointment scheduled: 04/16/22 Last labs: 05/24/2018 Pt is requesting refill of metoprolol, zoloft 100mg and 50mg and nitroglycerin. Please advice,, Thank you Kandace documented in this encounter [facility] 04-02-2022 Miscellaneous Notes Spoke with pt and information listed below given. Pt verbalizes understanding. Apt booked. Maggy Wang LPN Pt needs blood work and annual wellness exam completed in order to refill. He has no showed appointments numerous times for this. Lab work is ordered to have done a few days prior to this appointment. Thank you, Chago Baker APRN.NISHA The following approved medication requests have been transmitted electronically. Requested Prescriptions Refused Prescriptions Disp Refills nitroglycerin sublingual (NITROQUICK) 0.4 mg SL tablet [Pharmacy Med Name: nitroglycerin 0.4 mg sublingual tablet] 25 tablet 0 Sig: DISSOLVE 1 TABLET UNDER THE TONGUE NEEDED FOR CHEST PAIN- MAY REPEAT EVERY 5 MINUTES IF NEEDED ( MAX 3 DOSES.- IF NO RELIEF CALL 911) Refused By: CHAGO BAKER Reason for Refusal: Patient needs appointment sertraline (ZOLOFT) 50 mg tablet 90 tablet 0 Sig: Take 1 tablet by mouth once daily. Total of 150 mg daily Refused By: CHAGO BAKER Reason for Refusal: Patient needs appointment sertraline (ZOLOFT) 100 mg tablet 90 tablet 0 Sig: Take 1 tablet by mouth once daily. Refused By: CHAGO BAKER Reason for Refusal: Patient needs appointment lisinopril (ZESTRIL, PRINIVIL) 40 mg tablet 90 tablet 0 Sig: Take 1 tablet by mouth once daily. Refused By: CHAGO BAKER Reason for Refusal: Patient needs appointment metoprolol tartrate, short acting, (LOPRESSOR) 50 mg tablet 60 tablet 0 Sig: Take 1 tablet by mouth twice daily. Refused By: CHAGO BAKER Reason for Refusal: Patient needs appointment insulin 70/30 NPH/regular units/mL (HUMULIN 70/30 U-100 KWIKPEN) 100 unit/mL (70-30) 15 Each 3 Sig: Inject 14 Units subcutaneously twice daily with meals. Refused By: CHAGO BAKER Reason for Refusal: Patient needs appointment Chago aBker APRN.DITCH DIGGER Returns calls to request humulin insulin, Zoloft, metoprolol, and lisinopril. Pended LUCIANA-01/03/22Dec-07/03/22 Millie Betancourt RN Patient phones requesting refills as follows: Requested Prescriptions Pending Prescriptions Disp Refills nitroglycerin sublingual (NITROQUICK) 0.4 mg SL tablet [Pharmacy Med Name: nitroglycerin 0.4 mg sublingual tablet] 25 tablet 0 Sig: DISSOLVE 1 TABLET UNDER THE TONGUE NEEDED FOR CHEST PAIN- MAY REPEAT EVERY 5 MINUTES IF NEEDED ( MAX 3 DOSES.- IF NO RELIEF CALL 911) LUCIANA-01/03/22 Labs-12/18/21Dec-07/03/22 med filled 12/11/21 Please review and advise. Delaney Ruffin LPN documented in this encounter [facility] 12-11-2021 History of Present illness Narrative AMBULATORY TELEPHONE VISIT Cory Bailye has consented to this telephone encounter. Persons Present: patient Chief Complaint/Reason: medication review. HPI: Has not been seen by PCP team since 2019. Last seen by provider 1.5 years ago. Needing refills of medications to get him through to his routine wellness exam scheduled for 01/13. Depression/anxeity -- 150 mg zoloft daily. Stable. HTN -- Metoprolol 50 mg BID, HCTZ 25 mg daily, lisinopril 40 mg daily. Vitamin D deficiency -- Taking 65325 units per week. Stable. Well controlled. On this. DM -- Humulin insulin 14 units BID. No other medication regimen. Feeling well. Will recheck hgA1c when able to come into lab. Was prescribed xanax a few years ago. Came off of this because was on methadone. Has not been on either x 7 months. Asking to go back on Xanax. Will need assessment in office for this, pt agreeable. On amitriptyline at bedtime to help with sleep. No other concerns or complaints Data Reviewed: No new labs Assessment: (E11.9, Z79.4) Type 2 diabetes mellitus without complication, with long-term current use of insulin (HCC) (primary encounter diagnosis) (I10) Essential hypertension (E55.9) Vitamin D deficiency (R79.89) Elevated brain natriuretic peptide (BNP) level (R07.9) Chest pain, unspecified type (R06.02) SOB (shortness of breath) (R05.9) Cough (F51.01) Primary insomnia (F43.20) Adjustment disorder, unspecified type (M25.511, G89.29) Chronic right shoulder pain (Z13.29) Screening for thyroid disorder (Z12.5) Screening for prostate cancer (E78.2) Mixed hyperlipidemia Plan: Reviewed medication list. Refilled current medications. Ordered lab work to have drawn prior to upcoming in office appointment to review. ASSESSMENT/PLAN: 1. Type 2 diabetes mellitus without complication, with long-term current use of insulin (HCC) - ICD9: 250.00, V58.67, ICD10: E11.9, Z79.4 (primary diagnosis) Will reassess with lab work. - HGB A1C 2. Essential hypertension - ICD9: 401.9, ICD10: I10 - COMP METABOLIC PANEL - CBC - LISINOPRIL 40 MG TABLET - HYDROCHLOROTHIAZIDE 25 MG TABLET 3. Vitamin D deficiency - ICD9: 268.9, ICD10: E55.9 - VITAMIN D 25 HYDROXY - CHOLECALCIFEROL (VITAMIN D3) 1,250 MCG (50,000 UNIT) CAPSULE 4. Chest pain, unspecified type - ICD9: 786.50, ICD10: R07.9 - Nitroglycerin refilled. - CHOLECALCIFEROL (VITAMIN D3) 1,250 MCG (50,000 UNIT) CAPSULE 5. Primary insomnia - ICD9: 307.42, ICD10: F51.01 Refilled. - AMITRIPTYLINE 50 MG TABLET 6. Adjustment disorder, unspecified type - ICD9: 309.9, ICD10: F43.20 - Zoloft refilled. - ALBUTEROL SULFATE HFA 90 MCG/ACTUATION AEROSOL INHALER 7. Chronic right shoulder pain - ICD9: 719.41, 338.29, ICD10: M25.511, G89.29 Refilled - CYCLOBENZAPRINE 10 MG TABLET 8. Screening for thyroid disorder - ICD9: V77.0, ICD10: Z13.29 - TSH BLD 9. Screening for prostate cancer - ICD9: V76.44, ICD10: Z12.5 - PSA/PROSTSPECAG SCRN 10. Mixed hyperlipidemia - ICD9: 272.2, ICD10: E78.2 - LIPID PANEL BASIC Total Time Spent: 24 minutes Chago Zayas APRN.NISHA documented in this encounter [facility] 12-11-2021 Miscellaneous Notes Spoke with pt and information listed below given. Pt verbalizes understanding. Today is a med check only phone call. Physical has been scheduled. Maggy Wang LPN Pt has not been seen by PCP team since 2019. Last time seen by any provider was 1.5 years ago. We need to see patient in person to get vitals and do physical assessment. What does patient need done today? If patient is needing refills of medications, I can have phone encounter to address this today but needs rescheduled JOSE R for in person visit. This phone visit will not replace an in person visit. Thank you, Chago Zayas APRN.NISHA calling and pt has apt tomorrow 12-11-21 for med check. is sick and there car not working. Not able to get to the apt. Pt is not set up on [facility] to do apts. Asking if this time could this be a phone apt. Please advise /pt. [phone]. Maggy Wang LPN documented in this encounter [facility] 10-15-2021 Miscellaneous Notes calling for pt and states they are checking status. He is going thru bad panic attacks. Please review and advise . He has an apt on Thursday10-21-21. Needs something to help till he get in. Maggy Wang LPN Patient has been identified by name and date of : Yes Last office visit in this department: 08/01/2020 RX INSTRUCTIONS: Patient aware RX will be sent to pharmacy. No need to notify patient. Patient phones requesting refills as follows: Requested Prescriptions Pending Prescriptions Disp Refills sertraline (ZOLOFT) 50 mg tablet 90 tablet 0 Sig: Take 1 tablet by mouth once daily. Total of 150 mg daily LUCIANA-08/01/20 Labs-05/24/18 NOV-10/21/21 Please review and advise. Amberly Hurtado documented in this encounter [facility] 08-14-2021 Miscellaneous Notes Left message for pt to return call. NEEDS blood work and office visit. Looks like he was scheduled yesterday with Dr. Arredondo but I believe he was a no show. Last blood work was 3 years ago. Last time seen in office was over a year ago. Only refilled enough for 1 month until appointment can be made. Please assist in scheduling. Thank you, Chago Zayas APRN.DITCH DIGGER The following approved medication requests have been transmitted electronically. Signed Prescriptions Disp Refills metoprolol tartrate, short acting, (LOPRESSOR) 50 mg tablet 60 tablet 0 Sig: Take 1 tablet by mouth twice daily. DUSTIN: No Authorizing Provider: CHAGO ZAYAS insulin 70/30 NPH/regular units/mL (HUMULIN 70/30 U-100 KWIKPEN) 100 unit/mL (70-30) 15 Pen 3 Sig: Inject 14 Units subcutaneously twice daily with meals. DUSTIN: No Authorizing Provider: CHAGO ZAYAS APRN.DITCH DIGGER Pt overdue for follow up appt with labs. Robert Couch LPN Patient was in [facility] about a week ago for dehydration. said he's still not feeling well and will call later to rescheduled missed appointment. Pharmacy verified in Epic Patient has been identified by name and date of : Yes Patient aware RX will be sent to pharmacy. No need to notify patient. [facility] phones for refill(s): Pending Prescriptions Disp Refills METOPROLOL TARTRATE 50 MG TABLET 60 tablet 0 Sig: Take 1 tablet by mouth twice daily. DUSTIN: No HUMULIN 70/30 U-100 INSULIN KWIKPEN 100 UNIT/ML SUBCUTANEOUS 15 Pen 3 Sig: Inject 14 Units subcutaneously twice daily with meals. DUSTIN: No Date of last office visit : 08/01/2020 Date of next office visit : Visit date not found Last 2 Encounter Wt Readings: Date: Wt: 08/01/2020 0 kg () 12/17/2018 111.6 kg (246 lb) Please advise. Darlene Olivares Pss documented in this encounter [facility] 08-13-2021 Miscellaneous Notes Patient has appt. With PCP 08/13/21. Called number in chart again and it's a business #. They will have patient call office. Pt still hasn't been seen in . Chelsi Menchaca Ma Pt still hasn't been seen in . TC number in chart and its not the correct number. Will try to get correct number tomorrow. Chelsi Menchaca Ma Pt has not been seen in [facility] as of yet. Will continue to watch for visit. Anuradha Blanton Ma Agree with need for appt for assessment Luis Arredondo DO Protocol Recommended: see provider within 4 hours for evaluation. No appt made at this time due to patient's personal schedule. Patient states he will try [facility] today but may have to wait until tomorrow. Red flag symptoms reviewed as to when to seek ER. Reason for Disposition Scrotum looks infected (e.g., draining sore, ulcer, red rash) Answer Assessment - Initial Assessment Questions Patient calling and reports he noted a cyst on his scrotum about a week and a half ago. He states the cyst opened yesterday in which blood and pus came out of it. No redness surrounding area. No scrotal swelling. Rates pain a 6 out of 10, when walks it hurts more due to rubbing. States cleansed area and applied triple antibiotic salve on it. 1. LOCATION and RADIATION: Scrotum area-does not radiate 2. QUALITY: dull, ache 3. SEVERITY:moderate 4. ONSET: About a week and a half ago 5. PATTERN:constant 6. SCROTAL APPEARANCE: as above 7. HERNIA:no 8. OTHER SYMPTOMS: States he did have warm feeling with chills and achey but states no fever now. Denies abdominal pain. Does have mild nausea at times. Urinating okay. Protocols used: SCROTAL [id number] documented in this encounter [facility] 06-21-2021 Miscellaneous Notes Patient was scheduled on Thursday Christiana Saucedo Ma Spouse called to speak with clinical regarding patient having diarrhea off and on for about a week. She is also asking if patient could get an inhaler for COPD. Please call her and advise. documented in this encounter [facility] 05-24-2021 Miscellaneous Notes Patient has been identified by name and date of : Yes Pending Prescriptions Disp Refills HUMULIN 70/30 U-100 INSULIN KWIKPEN 100 UNIT/ML SUBCUTANEOUS 15 Pen 3 Sig: Inject 14 Units subcutaneously twice daily with meals. DUSTIN: No Patient's spouse calling and says their refrigerator went out and she believes the insulin went bad because patient's blood sugar is high. RX INSTRUCTIONS: Patient aware RX will be sent to pharmacy. No need to notify patient. Veronica King documented in this encounter [facility] Evaluation note Diagnosis Vitamin D deficiency- Primary Unspecified vitamin D deficiency Essential hypertension Unspecified essential hypertension Mixed hyperlipidemia Type 2 diabetes mellitus without complication, with long-term current use of insulin ([facility]) Screening for thyroid disorder [facility] Diagnosis Type 2 diabetes mellitus without complication, with long-term current use of insulin (HCC)- Primary Essential hypertension Unspecified essential hypertension Vitamin D deficiency Unspecified vitamin D deficiency Chest pain, unspecified type Primary insomnia Persistent disorder of initiating or maintaining sleep Adjustment disorder, unspecified type Chronic right shoulder pain Pain in joint, shoulder region Screening for thyroid disorder Screening for prostate cancer Special screening for malignant neoplasm of prostate Mixed hyperlipidemia [facility] Diagnosis Vitamin D deficiency- Primary Unspecified vitamin D deficiency Essential hypertension Unspecified essential hypertension Type 2 diabetes mellitus without complication, with long-term current use of insulin ([facility]) [facility] Diagnosis Essential hypertension Unspecified essential hypertension Vitamin D deficiency Unspecified vitamin D deficiency Chest pain, unspecified type [facility] Diagnosis Type 2 diabetes mellitus without complication, with long-term current use of insulin ([facility])- Primary Adjustment disorder, unspecified type Primary insomnia Persistent disorder of initiating or maintaining sleep Vitamin D deficiency Unspecified vitamin D deficiency Essential hypertension Unspecified essential hypertension COPD with chronic bronchitis (HCC) Obstructive chronic bronchitis without exacerbation Mixed hyperlipidemia Fall, initial encounter Screening for prostate cancer Special screening for malignant neoplasm of prostate Generalized weakness Other malaise and fatigue JASMINA (generalized anxiety disorder) Generalized anxiety disorder Anxiety and depression Dysthymic disorder B12 deficiency Other B-complex deficiencies Type 2 diabetes mellitus with hyperglycemia, with long-term current use of insulin (HCC) Lip laceration, initial encounter [facility] Diagnosis Type 2 diabetes mellitus without complication, with long-term current use of insulin ([facility])- Primary [facility] Diagnosis Adjustment disorder, unspecified type Primary insomnia Persistent disorder of initiating or maintaining sleep documented in this encounter [facility] note* Diagnosis JASMINA (generalized anxiety disorder) Generalized anxiety disorder Anxiety and depression Dysthymic disorder Essential hypertension Unspecified essential hypertension documented in this encounter [facility] note* Diagnosis Type 2 diabetes (HCC)- Primary documented in this encounter [facility] note* Diagnosis JASMINA (generalized anxiety disorder) Generalized anxiety disorder Anxiety and depression Dysthymic disorder Primary insomnia Persistent disorder of initiating or maintaining sleep Essential hypertension Unspecified essential hypertension documented in this encounter [facility] note* Diagnosis Adjustment disorder, unspecified type documented in this encounter [facility] note* Diagnosis Primary insomnia Persistent disorder of initiating or maintaining sleep Essential hypertension Unspecified essential hypertension JASMINA (generalized anxiety disorder) Generalized anxiety disorder Anxiety and depression Dysthymic disorder documented in this encounter [facility] note* Diagnosis Primary insomnia Persistent disorder of initiating or maintaining sleep Essential hypertension Unspecified essential hypertension JASMINA (generalized anxiety disorder) Generalized anxiety disorder Anxiety and depression Dysthymic disorder Chronic right shoulder pain Pain in joint, shoulder region Adjustment disorder, unspecified type documented in this encounter [facility] for referral (narrative)* Diagnostic Procedure Only (Routine) - Pending Review Specialty Diagnoses / Procedures Referred By Chaz ash Referred To Contact XR IMAGING Diagnoses Fall, initial encounter Procedures XR FACIAL BONES 3V AP/LAT/PEREA RADEX FACIAL BONES COMPLETE MINIMUM 3 VIEWS Chago Baker APRN.DITCH DIGGER [address] [place] [address] Xr Imaging Referral ID Status Reason Start Date Expiration Date Visits Requested Visits Authorized [id number] Pending Review Auto-Generat ed Referral 09/22/2022 10/22/2023 1 1 * Outpatient Procedure (Routine) - Pending Review Specialty Diagnoses / Procedures Referred By Chaz ash Referred To [facility] Diagnoses COPD with chronic bronchitis (HCC) Procedures SPIROMETRY - BASELINE AND POST DILATOR BRNCDILAT RSPSE SPMTRY PRE&POST-BRNCDILAT ADMN Chago Baker APRN.DITCH DIGGER [address] [place] [address] [facility] [address] [place] [address] Referral ID Status Reason Start Date Expiration Date Visits Requested Visits Authorized [id number] Pending Review Auto-Generat ed Referral 09/22/2022 10/22/2023 1 1 * Outpatient Procedure (Routine) - Pending Review Specialty Diagnoses / Procedures Referred By Chaz t Referred To [facility] Diagnoses COPD with chronic bronchitis (HCC) Procedures LUNG VOLUMES Chago Baker APRN.CNP [address] [place] [address] [facility] [address] [place] [address] Referral ID Status Reason Start Date Expiration Date Visits Requested Visits Authorized [id number] Pending Review Auto-Generat ed Referral 09/22/2022 10/22/2023 1 1 [facility] Summary Purpose Family History No Family History Records Found Advance Directives No Advanced Directives Records Found Additional Source Comments Source Comments (unrecognize d section and content) In the event this informatio n is protected by the Federal Confidentiality of Alcohol and Drug Abuse Patient Records regulations: The Federal rules restrict any use of the information to criminally investigate or prosecute any alcohol or drug abuse patient.[facility] the event this information is protected by the Federal Confidentiality of Alcohol and Drug Abuse Patient Records regulations: The Federal rules restrict any use of the information to criminally investigate or prosecute any alcohol or drug abuse patient.[facility] the event this information is protected by the Federal Confidentiality of Alcohol and Drug Abuse Patient Records regulations: The Federal rules restrict any use of the information to criminally investigate or prosecute any alcohol or drug abuse patient.[facility] the event this information is protected by the Federal Confidentiality of Alcohol and Drug Abuse Patient Records regulations: The Federal rules restrict any use of the information to criminally investigate or prosecute any alcohol or drug abuse patient.[facility] the event this information is protected by the Federal Confidentiality of Alcohol and Drug Abuse Patient Records regulations: The Federal rules restrict any use of the information to criminally investigate or prosecute any alcohol or drug abuse patient.[facility] the event this information is protected by the Federal Confidentiality of Alcohol and Drug Abuse Patient Records regulations: The Federal rules restrict any use of the information to criminally investigate or prosecute any alcohol or drug abuse patient.[facility] the event this information is protected by the Federal Confidentiality of Alcohol and Drug Abuse Patient Records regulations: The Federal rules restrict any use of the information to criminally investigate or prosecute any alcohol or drug abuse patient.[facility] the event this information is protected by the Federal Confidentiality of Alcohol and Drug Abuse Patient Records regulations: The Federal rules restrict any use of the information to criminally investigate or prosecute any alcohol or drug abuse patient.[facility] the event this information is protected by the Federal Confidentiality of Alcohol and Drug Abuse Patient Records regulations: The Federal rules restrict any use of the information to criminally investigate or prosecute any alcohol or drug abuse patient.[facility] the event this information is protected by the Federal Confidentiality of Alcohol and Drug Abuse Patient Records regulations: The Federal rules restrict any use of the information to criminally investigate or prosecute any alcohol or drug abuse patient.[facility] Hospital[facility] the event this information is protected by the Federal Confidentiality of Alcohol and Drug Abuse Patient Records regulations: The Federal rules restrict any use of the information to criminally investigate or prosecute any alcohol or drug abuse patient.[facility] Hospital[facility] the event this information is protected by the Federal Confidentiality of Alcohol and Drug Abuse Patient Records regulations: The Federal rules restrict any use of the information to criminally investigate or prosecute any alcohol or drug abuse patient.[facility] the event this information is protected by the Federal Confidentiality of Alcohol and Drug Abuse Patient Records regulations: The Federal rules restrict any use of the information to criminally investigate or prosecute any alcohol or drug abuse patient.[facility] the event this information is protected by the Federal Confidentiality of Alcohol and Drug Abuse Patient Records regulations: The Federal rules restrict any use of the information to criminally investigate or prosecute any alcohol or drug abuse patient.[facility] Hospital[facility] the event this information is protected by the Federal Confidentiality of Alcohol and Drug Abuse Patient Records regulations: The Federal rules restrict any use of the information to criminally investigate or prosecute any alcohol or drug abuse patient.[facility] HospitalIn the event this information is protected by the Federal Confidentiality of Alcohol and Drug Abuse Patient Records regulations: The Federal rules restrict any use of the information to criminally investigate or prosecute any alcohol or drug abuse patient.[facility] HospitalIn the event this information is protected by the Federal Confidentiality of Alcohol and Drug Abuse Patient Records regulations: The Federal rules restrict any use of the information to criminally investigate or prosecute any alcohol or drug abuse patient.[facility] HospitalIn the event this information is protected by the Federal Confidentiality of Alcohol and Drug Abuse Patient Records regulations: The Federal rules restrict any use of the information to criminally investigate or prosecute any alcohol or drug abuse patient.[facility] HospitalIn the event this information is protected by the Federal Confidentiality of Alcohol and Drug Abuse Patient Records regulations: The Federal rules restrict any use of the information to criminally investigate or prosecute any alcohol or drug abuse patient.[facility] HospitalIn the event this information is protected by the Federal Confidentiality of Alcohol and Drug Abuse Patient Records regulations: The Federal rules restrict any use of the information to criminally investigate or prosecute any alcohol or drug abuse patient.[facility] the event this information is protected by the Federal Confidentiality of Alcohol and Drug Abuse Patient Records regulations: The Federal rules restrict any use of the information to criminally investigate or prosecute any alcohol or drug abuse patient.[facility] Hospital[facility] the event this information is protected by the Federal Confidentiality of Alcohol and Drug Abuse Patient Records regulations: The Federal rules restrict any use of the information to criminally investigate or prosecute any alcohol or drug abuse patient.[facility] Reason for Visit (unrecogniz ed section and content) Reason Onset Date Comments Refill Request 05/24/2021 Reason Comments Patient Question Reason Comments scrotum cyst Reason Onset Date Comments Refill Request 08/14/2021 Reason Onset Date Comments Refill Request 10/15/2021 Reason Comments Future Appointment apt for 12-11-21. Req uesting a phone apt. Reason Comments Medication Update Reason Comments Refill Request Reason Comments Med Change Request Humulin 70/30 Reason Comments Physical Reason Comments Medication Problem Reason Onset Date Comments Refill Request 12/17/2022 Reason Comments NEW PRIMARY CARE PHARMACY APPT Reason Onset Date Comments Refill Request 03/31/2023 Reason Onset Date Comments Refill Request 04/10/2023 needs a new gluc ometer to match his test strips as he recently broke it when it fell Reason Onset Date Comments Refill Request 04/10/2023 Reason Onset Date Comments Refill Request 05/20/2023 Reason Onset Date Comments Refill Request 05/26/2023 Reason Onset Date Comments Refill Request 08/25/2023 Care Teams (unrecognized sec tion and content) Final Inspector Relationship Specialty Start Date End Date Luis Arredondo, DO [address] [place] [address] PCP - General Family Practice 09/09/12 Final Inspector Relationship Specialty Start Date End Date Luis Arredondo, [address] [place] [address] PCP - General Family Practice 09/09/12 Final Inspector Relationship Specialty Start Date End Date Luis Arredondo, DO [address] [place] [address] PCP - General Family Practice 09/09/12 Final Inspector Relationship Specialty Start Date End Date Luis Arredondo, DO [address] [place] [address] PCP - General Family Practice 09/09/12 Final Inspector Relationship Specialty Start Date End Date Luis Arredondo, DO [address] [place] [address] PCP - General Family Medicine 09/09/12 Final Inspector Relationship Specialty Start Date End Date Luis Arredondo, DO [address] [place] [address] PCP - General Family Medicine 09/09/12 Final Inspector Relationship Specialty Start Date End Date Luis Arredondo, DO [address] [place] [address] PCP - General Family Medicine 09/09/12 Final Inspector Relationship Specialty Start Date End Date Luis Arredondo, DO [address] [place] [address] PCP - General Family Medicine 09/09/12 Final Inspector Relationship Specialty Start Date End Date Luis Arredondo, DO [address] [place] [address] PCP - General Family Medicine 09/09/12 Final Inspector Relationship Specialty Start Date End Date Luis Arredondo DO [address] [place] [address] PCP - General Family Medicine 09/09/12 Final Inspector Relationship Specialty Start Date End Date Luis Arredondo DO [address] [place] [address] PCP - General Family Medicine 09/09/12 Final Inspector Relationship Specialty Start Date End Date Luis Arredondo DO [address] [facility] [place] [address] PCP - General Family Medicine 09/09/12 Final Inspector Relationship Specialty Start Date End Date Luis Arredondo DO [address] [facility] [place] [address] PCP - General Family Medicine 09/09/12 Final Inspector Relationship Specialty Start Date End Date Luis Arredondo DO [address] [facility] [place] [address] PCP - General Family Medicine 09/09/12 Final Inspector Relationship Specialty Start Date End Date Luis Arredondo DO [address] [facility] [place] [address] PCP - General Family Medicine 09/09/12 Final Inspector Relationship Specialty Start Date End Date Luis Arredondo DO [address] [place] [address] PCP - General Family Medicine 09/09/12 Final Inspector Relationship Specialty Start Date End Date Luis Arredondo DO [address] [place] [address] PCP - General Family Medicine 09/09/12 Final Inspector Relationship Specialty Start Date End Date Luis Arredondo DO [address] [place] [address] PCP - General Family Medicine 09/09/12 Final Inspector Relationship Specialty Start Date End Date Luis Arredondo DO [address] [place] [address] PCP - General Family Medicine 09/09/12 Final Inspector Relationship Specialty Start Date End Date Luis Arredondo DO [address] [place] [address] PCP - General Family Medicine 09/09/12 Final Inspector Relationship Specialty Start Date End Date Luis Arredondo DO [address] [place] [address] PCP - General Family Medicine 09/09/12 (unrecognized sect ion and content) No Status Records Found INFORMATION SOURCE (unrecogn ized section and content) DATE CREATED AUTHOR 04/12/2023 [facility] FOR RECORDS PERTAINING TO PATIENTS WHO ARE OR HAVE BEEN ENROLLED IN A CHEMICAL DEPENDENCY/SUBSTANCEABUSE PROGRAM, SOME INFORMATION MAY BE OMITTED. This clinical summary was aggregated from multiple sources. Caution should be exercised in using it in the provision of clinical care. This summary normalizes information from multiple sources, and as a consequence, information in this document may materially change the coding, format and clinical context of patient data. In addition, data may be omitted in some cases. CLINICAL DECISIONS SHOULD BE BASED ON THE PRIMARY CLINICAL RECORDS. [employer] [facility]. provides no warranty or guarantee of the accuracy or completeness of information in this document.
[2023-12-21] MEDS: Gabapentin 600 MG Tablet NG (21:45)
[2023-12-21] MEDS: Amitriptyline 25 MG Tablet 50 MG PO (21:45)
[2023-12-21 22:50] LABS: CPK Total, Creatine Kinase 165 U/L (39-308); Triglycerides 63 mg/dL
[2023-12-21] MEDS: Metoprolol Tartrate 50 MG Tablet PO (22:56)
[2023-12-22] VITALS (36 sets, daily range): BP systolic 95–159; BP diastolic 55–90; PULSE 55–78; RESP 13–28; TEMP 36.3–38.2; O2SAT 92–100; BMI 26.6
[2023-12-22 00:48] LABS: Bedside Glucose 98 mg/dL (74-106)
[2023-12-22 04:50] LABS: Hematocrit 27.4 % (40-54); Hemoglobin 9.1 g/dL (13.0-16.5); Mean Corp Hgb Conc 33.2 g/dL (32-36); Mean Corpuscular Hgb 32.6 pg (27.0-32.0); Mean Corpuscular Volume 98.2 fL (80-94); Mean Platelet Vol. 10.1 fl (6.2-12.0); Platelet Count 191 K/mm3 (150-450); RBC Distribution Width CV 14.9 % (11.6-14.6); RBC Distribution Width SD 54.1 fl (35.1-43.9); Red Blood Count 2.79 M/mm3 (4.6-6.2)
[2023-12-22 05:05] LABS: Anion Gap 8 (5-15); BUN 53 mg/dL (7-18); BUN/Creat Ratio 17.6 RATIO (10-20); Calcium,Total 8.8 mg/dL (8.5-10.1); Chloride 110 mmol/L (98-107); Creatinine, Serum 3.01 mg/dL (0.70-1.30); EST Glomerular Filtration Rate 22 mL/min (>60); Est Glom Filt Rate - Afr Amer 27 mL/min (>60); Estimated Creatinine Clearance 21.05 ml/min; Glucose 80 mg/dL (74-106); Potassium 3.5 mmol/L (3.5-5.1); Sodium Level 138 mmol/L (136-145)
[2023-12-22] MEDS: Gabapentin 600 MG Tablet NG (05:35)
[2023-12-22 07:40] LABS: Hemoglobin A1c 6.6 % (3.8-5.6)
[2023-12-22] MEDS: Metoprolol Tartrate 50 MG Tablet PO ×2 (07:57→19:41)
[2023-12-22] MEDS: Aspirin E.C. 81 MG Tablet PO (07:57)
[2023-12-22] MEDS: Sertraline 50 MG Tablet 150 MG PO (07:58)
[2023-12-22] MEDS: Furosemide 40 MG/4 ML Vial IV (07:58)
--- NOTE | 2023-12-22 08:10 | EX.PCM.CONCC ---
Assessment & Plan Assessment/Plan (1) Acute kidney injury: (2) Acute hypoxemic respiratory failure: PLAN: Plan RECOMMENDATIONS: 1. Hold diuretics until chronicity of renal disease can be established. 2. Minimize sedation as tolerated. 3. Hold gabapentin for now. 4. Await results of echocardiogram. 5. Continue appropriate ICU prophylaxis. 6. Consider spontaneous breathing trial if mental status improves. IMPRESSIONS: 1. Acute hypercapnic and hypoxemic respiratory failure Unclear precipitating etiology. Potential considerations include CHF exacerbation with low suspicion for underlying occult infection. The patient did receive IV diuretics at admission. Nevertheless, I would plan to hold Lasix for now until the chronicity of his renal disease can be established. The patient's ventilator requirement is quite minimal. We will attempt to wean his sedation as tolerated to better assess his underlying neurologic status. If his mentation improves, a spontaneous breathing trial can be completed. Surface echocardiogram is pending. 2. Encephalopathy Most likely metabolic in etiology. In addition, I am concerned that the patient is on a combination of gabapentin and methadone as an outpatient which, coupled with his renal insufficiency, may have led to his depressed mental state. Therefore, we will plan to hold sedating medications for now. CT head did not show any acute intracranial process. 3. Acute versus chronic kidney disease I suspect that his renal insufficiency is likely acute. However, I do not have any laboratory evidence to confirm this assertion, as his last creatinine was around 1.0 approximately 2 years ago. Given these findings, I would hold off on aggressive diuresis and obtain renal ultrasound. 4. History of hypertension/coronary artery disease/diabetes mellitus/anxiety/depression/history of pericardial effusion Complicates care, management, recovery and prognosis. Continue supportive care as outlined above. Hold on initiating tube feeding today. As noted above, echocardiogram is pending. TIME: 36 minutes of critical care time, independent of procedures, was spent addressing the patient's acute hypercapnic and hypoxemic respiratory failure, encephalopathy, acute kidney injury, review of all data and collaboration with the care team. HPI Consult Data Date of Consult: 12/22/23 HPI Narrative Reason for Consultation: Respiratory failure HPI Narrative: The patient is a 68-year-old male, with a history as outlined below, who presented to the emergency department on December 20 with encephalopathy and shortness of breath. History pertinent to the patient's hospitalization was obtained primarily via chart review and via the patient's , as he is currently intubated and mechanically ventilated. The patient has apparently become more short of breath over the last several weeks with generalized debility. He has a questionable history of heart failure and appears to be on a combination of gabapentin and methadone on an outpatient basis. On presentation to the emergency department, the patient was documented to be afebrile and hemodynamically stable. He was initially documented to be saturating 73% on room air. Initial laboratory evaluation revealed a normal white blood cell count with a hemoglobin of 8.6 g/dL. Arterial blood gas demonstrated a pH of 7.18 with a pCO2 of 51 and pO2 of 85. Chemistry profile was notable for a creatinine of 3.07. Lactate was within normal limits. BNP was elevated at 325. The patient was initially placed on BiPAP therapy, but failed to respond clinically. Therefore, the decision was made to proceed with intubation. Chest imaging demonstrated cardiomegaly and a small left pleural effusion. The patient was ultimately placed on diuretics, which were placed on hold this morning after his creatinine was noted to be elevated. CT imaging of the head completed last evening demonstrated atrophy and moderate periventricular white matter ischemic changes. [facility] Medical History Acute respiratory failure Acute respiratory failure with hypoxia and hypercapnia Adjustment disorder Altered mental status Anxiety Calcification of [place] coronary artery Cardiomegaly Carotid artery stenosis Chronic kidney disease (CKD) Chronic pain Chronically on opiate therapy Congestive heart failure (CHF) COPD (chronic obstructive pulmonary disease) Depression Encephalopathy Essential (primary) hypertension History of sepsis HLD (hyperlipidemia) Insomnia Kidney stones Migraines Nicotine dependence Opiate dependence Orthopnea EBONY and COPD overlap syndrome Pericardial effusion (06/2020) Pleural effusion Right arm weakness Smoker Stenosis of right carotid artery Type 2 diabetes mellitus Type 2 diabetes mellitus without complication Home Medications ?Medication ?Instructions ?Recorded ?Last Taken ?Type nitroglycerin 0.4 mg sublingual 0.4 mg sublingual PRN PRN pain 04/23/16 09/15/16 History tablet metoprolol tartrate 50 mg tablet 50 mg PO BID heart rate 07/10/18 12/20/23 History albuterol sulfate 90 mcg/actuation 2 puff inhalation Q4H PRN sob 16 07/19/18 12/20/23 History aerosol inhaler days #18 grams hydrochlorothiazide 25 mg tablet 25 mg PO DAILY diuretic #90 tabs 08/10/18 12/20/23 History acetaminophen 500 mg tablet 500 mg PO Q4H PRN Headache 08/02/20 07/25/21 History aspirin 81 mg tablet,delayed 81 mg PO DAILY heart health 08/02/20 12/20/23 History release (Adult Low Dose Aspirin) cholecalciferol (vitamin D3) 1,250 1,250 mcg PO QWEEK supplement #12 08/02/20 12/20/23 History mcg (50,000 unit) capsule caps gabapentin 600 mg tablet 600 mg PO TID nerve pain 08/02/20 12/20/23 History insulin NPH-regular 70-30 U-100 14 unit subcut BID 08/02/20 12/20/23 History insulin 100 unit/mL subcutaneous pen lisinopril 40 mg tablet 40 mg PO DAILY blood pressure 08/02/20 12/20/23 History methadone 10 mg tablet 10 mg PO BID PRN Pain 08/02/20 12/20/23 History sertraline 100 mg tablet 150 mg PO DAILY mental health 08/02/20 12/20/23 History potassium chloride 20 mEq 20 meq PO BID #60 tabs 07/29/21 12/20/23 Rx tablet,extended release amitriptyline 50 mg tablet 50 - 100 mg PO QHS 12/21/23 12/20/23 History cyclobenzaprine 10 mg tablet 10 mg PO TID PRN PRN muscle spasm 12/21/23 Unknown History sertraline 50 mg tablet 150 mg PO DAILY 12/21/23 12/20/23 History Allergy/AdvReac Type Severity Reaction Status Date / Time No Known Allergies Allergy Verified 12/21/23 14:03 Family History Uncle Myocardial infarction Father Diabetes Melanoma Cancer bladder Mother Diabetes Heart disease Grandfather Parkinson's disease Grandmother Breast cancer Surgical History History of cholecystectomy (09/17/12) History of fusion of cervical spine History of repair of right rotator cuff History of tonsillectomy Hx of appendectomy (~1962) Social History Smoking Status: Current every day smoker tobacco type: cigarettes Tobacco: How many years used: 20 alcohol intake: never substance use type: does not use ROS Review of Systems ROS Unobtainable: due to endotracheal tube and due to mental status Physical Exam Const Constitutional Narrative: Intubated, sedated and mechanically ventilated. Initially, the patient had myoclonic jerking noted in his extremities, which seem to subside with cessation of sedative medications. HEENT normocephalic and head/scalp atraumatic Mouth: endotracheal tube in place and OG tube in place Eyes PERRL, EOMs intact bilaterally and conjunctivae normal Neck supple General: trachea midline Chest inspection of chest normal Resp Auscultation: diminished lung sounds; Negative for rales, rhonchi or wheezes Cardio regular rate and regular rhythm GI normal to inspection, nondistended, normoactive bowel sounds Extremity no clubbing, cyanosis or edema Skin no rashes or lesions noted Neuro Sensorium / Orientation: sedated on vent Lab / Micro Data 12/22/23 04:40 12/22/23 04:40 Labs: Laboratory Results - last 24 hr 12/21/23 14:00: WBC 9.2, RBC 2.68 L, Hgb 8.6 L, Hct 26.9 L, MCV 100.4 H, MCH 32.1 H, MCHC 32.0, RDW Std Deviation 56.0 H, RDW Coeff of Khris 15.1 H, Plt Count 212, MPV 9.9, Sodium 136, Potassium 4.1, Chloride 107, Carbon Dioxide 21.0, Anion Gap 8, BUN 54 H, Creatinine 3.07 H, Estim Creat Clear Calc 26.55, Est GFR (MDRD) Af Amer 26 L, Est GFR (MDRD) Non-Af 22 L, BUN/Creatinine Ratio 17.6, Glucose 116 H, Lactic Acid 0.6, Calcium 8.7, Iron 21 L, TIBC 180 L, Iron Saturation 11.7 L, Ferritin 271, Total Bilirubin 0.30, AST 13 L, ALT 14 L, Alkaline Phosphatase 99, Total Creatine Kinase 165, Troponin I High Sens 12, Total Protein 6.8, Albumin 3.1 L, Globulin 3.7, Albumin/Globulin Ratio 0.8 L, Triglycerides 63, Folate 6.70 12/21/23 14:47: Ammonia 27.0 12/21/23 18:25: WBC 8.1, RBC 2.76 L, Hgb 9.0 L, Hct 27.4 L, MCV 99.3 H, MCH 32.6 H, MCHC 32.8, RDW Std Deviation 54.9 H, RDW Coeff of Khris 15.1 H, Plt Count 208, MPV 10.0, PT 14.3, INR 1.1, APTT 23.2 L, B-Natriuretic Peptide 325.0 H, Vitamin B12 408 12/21/23 18:28: POC Glucose 116 H 12/21/23 23:37: POC Glucose 98 12/22/23 04:40: WBC 7.0, RBC 2.79 L, Hgb 9.1 L, Hct 27.4 L, MCV 98.2 H, MCH 32.6 H, MCHC 33.2, RDW Std Deviation 54.1 H, RDW Coeff of Khris 14.9 H, Plt Count 191, MPV 10.1, Sodium 138, Potassium 3.5, Chloride 110 H, Carbon Dioxide 20.0 L, Anion Gap 8, BUN 53 H, Creatinine 3.01 H, Estim Creat Clear Calc 21.05, Est GFR (MDRD) Af Amer 27 L, Est GFR (MDRD) Non-Af 22 L, BUN/Creatinine Ratio 17.6, Glucose 80, Hemoglobin A1c 6.6 H, Calcium 8.8 Micro: Microbiology 12/21/23 16:17 Stool Stool Occult Blood (ELISABETH) - Final 12/21/23 14:47 Mucosa - Nose SARS-CoV-2, Influenza & RSV (PCR) - Final ABG Data ABG results: ABG 12/21/23 12/21/23 15:18 19:47 Specimen Type ART ART Sample Site R Radial R Radial pH 7.18 L* 7.28 L Bicarbonate Actual 18.8 L 19.6 L Total CO2 20 21 Base Excess -10 L -7 L O2 Saturation 93 L 90 L O2 % 4.0 25.0 ABG pCO2 50.8 H 41.8 ABG pO2 85 65 L Bradley Test Positive Respiration Rate 14 O2 Delivery Device Cannula Adult Vent Vent Mode Not entered AC Tidal Volume 450.0 POC PEEP 5 Crit Call To/Read Back Yes Blood Gas Notified Whom haque Blood Gas Notified Time 15:20:06 Imaging Radiology Impression Chest X-Ray 12/21/23 14:13 IMPRESSION: Cardiomegaly and CHF. Small left pleural effusion with left basilar atelectasis. Electronically Signed: Ruslan Odell MD at 14:49 EST , Chest X-Ray 12/21/23 16:10 IMPRESSION: Left lower lobe atelectasis and possible small effusion Status post intubation. NG tube in distal esophagus and should be advanced Electronically Signed: Wilver Buenrostro MD at 16:41 EST , ADDENDUM: 12/21/23 1658 IMPRESSION: Left lower lobe atelectasis and possible small effusion Status post intubation. NG tube in distal esophagus and should be advanced N.B. : The above Results were Read Back by Wilver Buenrostro MD to Bang Haque MD, and understanding confirmed on 12/21/2023 16:51:31 (ET). Electronically Signed: Wilver Buenrostro MD at 16:41 EST , Brain CT 12/21/23 17:43 IMPRESSION: Atrophy and moderate periventricular white matter ischemic change. No mass or acute bleed. If concern for acute infarct MRI recommended. Electronically Signed: Wilver Buenrostro MD at 18:30 EST , Renal Ultrasound 12/21/23 18:56 IMPRESSION: 1. Echogenic right-sided renal parenchyma suggests sequela of chronic renal insufficiency and/or medical renal disease. 2. No sonographic evidence for hydronephrosis. Electronically Signed: Mirta Kaplan MD at 5:41 EST , Charges/Coding Procedures Hospitalists Procedures: [id number] Critical Care 1st Hr
[2023-12-22 08:21] LABS: Bedside Glucose 74 mg/dL (74-106)
--- NOTE | 2023-12-22 08:38 | RAD_ITS ---
STUDY: X-RAY CHEST REASON FOR EXAM: Male, 68 years old. Respiratory failure TECHNIQUE: Single AP portable view of the chest. COMPARISON: Comparison is made with prior study dated December 21, 2023. FINDINGS: The tip of the endotracheal tube is at 3.3 cm proximal to the sara. The tip of the orogastric tube is at the gastroesophageal junction. Improved aeration at the left base although residual increased markings are seen at both lung bases more prominent on the left side. Blunting of the left costophrenic angle. There is moderate cardiac enlargement. Normal mediastinum and lily. Normal visualized pulmonary arteries. There is atherosclerotic tortuosity of the aortic arch and descending thoracic aorta. There are diffuse degenerative changes of the visualized thoracic spine. There is degenerative osteoarthritis of the bilateral shoulders. There is no demonstrated abnormality of the visualized soft tissue structures of the upper abdomen. RAD/Chest 1 View (Portable) IMPRESSION: Improved aeration of both lungs with residual atelectasis and/or infiltrates of both lung bases more prominent on the left side. Blunting of the left costophrenic angle. Electronically Signed: Ruslan Odell MD at 9:33 EST ,
--- NOTE | 2023-12-22 09:53 | PCM.PN.HOSP ---
Reason for Visit Reason for Visit: Diagnoses Anemia, unspecified (12/21/23) Heart failure, unspecified (12/21/23) Acute respiratory failure with hypoxia (12/21/23) Acute kidney failure, unspecified (12/21/23) Subjective Subjective Patient was seen and examined today, he was admitted yesterday for respiratory failure and was found to be acidotic. I repeated the patient's chest x-ray today, it showed improved aeration of both lungs with residual atelectasis and/or infiltrate at both lung bases more prominent on the left side, there is blunting of the left costophrenic angle noted. Patient will undergo an echocardiogram today. Objective Data Objective Data Vital Signs: Vital Signs Temp Pulse Resp BP Pulse Ox O2 Del Method O2 Flow Rate 97.7 F L 73 27 H 144/84 H 96 Mechanical Ventilator 25 12/22/23 08:00 12/22/23 09:32 12/22/23 09:32 12/22/23 09:00 12/22/23 09:32 12/22/23 09:00 12/22/23 08:00 FiO2 25 12/22/23 09:32 Oxygen Flow Rate (L/min) 25 Oxygen Delivery Method Mechanical Ventilator Weight: 86.364 kg Body Mass Index (BMI) 26.6 Intake & Output: Intake and Output for Last 24 Hours 12/20/23 12/21/23 12/22/23 23:59 23:59 23:59 Intake Total 31.40 / 40.45 99.35 / 99.35 Output Total 2350 / 2350 450 / 450 Balance -2318.60 / -2309.55 -350.65 / -350.65 Lab / Micro Data 12/22/23 04:40 12/22/23 04:40 Labs: Laboratory Results - last 24 hr 12/21/23 14:00: WBC 9.2, RBC 2.68 L, Hgb 8.6 L, Hct 26.9 L, MCV 100.4 H, MCH 32.1 H, MCHC 32.0, RDW Std Deviation 56.0 H, RDW Coeff of Khris 15.1 H, Plt Count 212, MPV 9.9, Sodium 136, Potassium 4.1, Chloride 107, Carbon Dioxide 21.0, Anion Gap 8, BUN 54 H, Creatinine 3.07 H, Estim Creat Clear Calc 26.55, Est GFR (MDRD) Af Amer 26 L, Est GFR (MDRD) Non-Af 22 L, BUN/Creatinine Ratio 17.6, Glucose 116 H, Lactic Acid 0.6, Calcium 8.7, Iron 21 L, TIBC 180 L, Iron Saturation 11.7 L, Ferritin 271, Total Bilirubin 0.30, AST 13 L, ALT 14 L, Alkaline Phosphatase 99, Total Creatine Kinase 165, Troponin I High Sens 12, Total Protein 6.8, Albumin 3.1 L, Globulin 3.7, Albumin/Globulin Ratio 0.8 L, Triglycerides 63, Folate 6.70 12/21/23 14:47: Ammonia 27.0 12/21/23 18:25: WBC 8.1, RBC 2.76 L, Hgb 9.0 L, Hct 27.4 L, MCV 99.3 H, MCH 32.6 H, MCHC 32.8, RDW Std Deviation 54.9 H, RDW Coeff of Khris 15.1 H, Plt Count 208, MPV 10.0, PT 14.3, INR 1.1, APTT 23.2 L, B-Natriuretic Peptide 325.0 H, Vitamin B12 408 12/21/23 18:28: POC Glucose 116 H 12/21/23 23:37: POC Glucose 98 12/22/23 04:40: WBC 7.0, RBC 2.79 L, Hgb 9.1 L, Hct 27.4 L, MCV 98.2 H, MCH 32.6 H, MCHC 33.2, RDW Std Deviation 54.1 H, RDW Coeff of Khris 14.9 H, Plt Count 191, MPV 10.1, Sodium 138, Potassium 3.5, Chloride 110 H, Carbon Dioxide 20.0 L, Anion Gap 8, BUN 53 H, Creatinine 3.01 H, Estim Creat Clear Calc 21.05, Est GFR (MDRD) Af Amer 27 L, Est GFR (MDRD) Non-Af 22 L, BUN/Creatinine Ratio 17.6, Glucose 80, Hemoglobin A1c 6.6 H, Calcium 8.8 12/22/23 05:24: POC Glucose 74 Micro: Microbiology 12/21/23 16:27 Sputum, Induced/Lukens Gram Stain - Final 12/21/23 16:17 Stool Stool Occult Blood (ELISABETH) - Final 12/21/23 14:47 Mucosa - Nose SARS-CoV-2, Influenza & RSV (PCR) - Final ABG Data ABG results: ABG 12/21/23 12/21/23 15:18 19:47 Specimen Type ART ART Sample Site R Radial R Radial pH 7.18 L* 7.28 L Bicarbonate Actual 18.8 L 19.6 L Total CO2 20 21 Base Excess -10 L -7 L O2 Saturation 93 L 90 L O2 % 4.0 25.0 ABG pCO2 50.8 H 41.8 ABG pO2 85 65 L Bradley Test Positive Respiration Rate 14 O2 Delivery Device Cannula Adult Vent Vent Mode Not entered AC Tidal Volume 450.0 POC PEEP 5 Crit Call To/Read Back Yes Blood Gas Notified Whom garland Blood Gas Notified Time 15:20:06 Radiography Diagnostic Testing: Radiology Impression Chest X-Ray 12/21/23 14:13 IMPRESSION: Cardiomegaly and CHF. Small left pleural effusion with left basilar atelectasis. Electronically Signed: Ruslan Odell MD at 14:49 EST Reading Location ID and State: [facility] / [place] , Service support , Chest X-Ray 12/21/23 16:10 IMPRESSION: Left lower lobe atelectasis and possible small effusion Status post intubation. NG tube in distal esophagus and should be advanced Electronically Signed: Wilver Buenrostro MD at 16:41 EST Reading Location ID and State: [address] [place] [address] Tel [phone], Service support , ADDENDUM: 12/21/23 1658 IMPRESSION: Left lower lobe atelectasis and possible small effusion Status post intubation. NG tube in distal esophagus and should be advanced N.B. : The above Results were Read Back by Wilver Buenrostro MD to Bang Oswald MD, and understanding confirmed on 12/21/2023 16:51:31 (ET). Electronically Signed: Wilver Buenrostro MD at 16:41 EST Reading Location ID and State: [address] [place] [address] Tel [phone], Service support , Brain CT 12/21/23 17:43 IMPRESSION: Atrophy and moderate periventricular white matter ischemic change. No mass or acute bleed. If concern for acute infarct MRI recommended. Electronically Signed: Wilver Buenrostro MD at 18:30 EST , Renal Ultrasound 12/21/23 18:56 IMPRESSION: 1. Echogenic right-sided renal parenchyma suggests sequela of chronic renal insufficiency and/or medical renal disease. 2. No sonographic evidence for hydronephrosis. Electronically Signed: Mirta Kaplan MD at 5:41 EST , Chest X-Ray 12/22/23 08:38 IMPRESSION: Improved aeration of both lungs with residual atelectasis and/or infiltrates of both lung bases more prominent on the left side. Blunting of the left costophrenic angle. Electronically Signed: Ruslan Odell MD at 9:33 EST , Physical Exam Const Constitutional Narrative: Patient is sedated and on the ventilator General Appearance: well kempt and well developed HEENT normocephalic, head/scalp atraumatic and moist oral mucous membranes Eyes PERRL, EOMs intact bilaterally and conjunctivae normal Neck supple, no JVD and thyroid normal General: trachea midline Resp clear to auscultation bilaterally Auscultation: Negative for rales, rhonchi or wheezes Cardio regular rate, regular rhythm, S1 normal heart sound, S2 normal heart sound, no murmurs, no rub and no gallops GI normal to inspection, nondistended, normoactive bowel sounds and non-distended Extremity Extremity Narrative: There is generalized edema of the lower legs with blister formation on the left leg over the anterior mederos area. Skin Skin Narrative: There are open areas on the lateral malleolus bilaterally, these appear to be approximately 4 cm in diameter and are round, these appear to be full skin thickness Neuro Neuro Narrative: Patient is sedated and on the ventilator Psych Psych Narrative: Patient is sedated and on the ventilator Assessment & Plan Assessment/Plan (1) Acute exacerbation of CHF (congestive heart failure): PLAN: Plan 1. Acute hypoxic respiratory failure-etiology unclear at this point, may have resulted from acute exacerbation of chronic CHF-patient was taken off diuretics by critical care due to his elevated creatinine, patient has had no labs drawn at his PCPs office since 2019 (I called their office this morning), his last office visit was approximately a year ago, I have asked if they could forward it to ICU along with his last EKG. Pulmonary states they are doing a weaning trial on him this morning #2 acute kidney injury-patient's baseline kidney functions are unknown at this time, his last BMP appears to be in 2021. I discussed having nephrology see the patient with critical care, they wanted to review the chart and make a decision. Patient had an ultrasound of his kidneys done yesterday, there is echogenic right sided renal parenchyma suggestive of a sequela I of chronic renal insufficiency or medical renal disease, no evidence of hydronephrosis is noted. Since patient is noncompliant with getting labs performed, it is difficult to determine what is his baseline creatinine. #3 history of congestive heart failure-type unknown, patient will have an echocardiogram today #4 chronic pain syndrome-patient takes methadone chronically at home according to the , she thinks he is on 10 mg twice a day, he also takes gabapentin 600 mg 3 times a day, he had been off this medication for a while #5 anemia-etiology unclear, patient's ferritin level is normal which could indicate this is anemia of chronic disease such as an anemia of renal failure. Labs will be monitored, patient's hemoglobin today was 9.1 #6 essential hypertension-patient's blood pressure will be monitored #7 history of type 2 diabetes-patient's blood sugars will be monitored #8 chronic obstructive pulmonary disease-complicates care, management, recovery, and prognosis Total clinical time spent by myself addressing patient's medical issues, reviewing all of his data, and collaborating with patient's care team: 50 minutes Charges/Coding Visit Charges Inpatient E&M: 80430 Subs Hosp L3
[2023-12-22] MEDS: Heparin Injection (Vial) 5,000 UNIT/ML VIAL 5000 UNIT SC ×2 (10:16→19:42)
[2023-12-22] MEDS: Pantoprazole Sodium 40 MG in 0.9% Normal Saline (100mL MB+) 100 ML 330 MG IV (10:16)
[2023-12-22 11:05] LABS: Blood Gas Specimen Type VEN; O2 Delivery Device Not entered; SITE Not entered; VBG BASE EXCESS -7 mmol/L (-1.0-3.5); VBG Bicarbonate 21 mmol/L (22-26); VBG PO2 31 mmHg (25-40); VBG SO2 49 % (50-70); VBG TCO2 22 mmol/L (23-33); VBG pCO2 46.7 mmHg (41-51); VBG pH 7.25 (7.32-7.42)
[2023-12-22 11:26] LABS: Bedside Glucose 75 mg/dL (74-106)
--- NOTE | 2023-12-22 12:53 | CASEMGMT ---
RN CM Assessment Face to Face with patient for initial transition planning/care coordination assessment. Pt is currently on sedated and on the vent and is unable to answer this RN CM questions for assessment. Pt at bedside and willing to answer this RN CM questions. Care providers, pharmacy, and demographics verified. Admitting dx: RF with Hypoxia, Acute CHF LACE Strata: 2 PCP: Luis Starr Specialists: Denies Preferred Pharmacy: [facility] Insurance: [employer], [employer] Prescription Benefit: Yes LNOK: Mireillesudha Barron (W), Shawanda Chandler (Adrian) Living Arrangements: Pt lives with his in a ground level apartment with one step to enter ADLs/IADLs: Pt states that the pt has lost a lot of his strength lately and that she has been needing to assist. Transportation: Pt does not drive. Pt drives mainly. Friends help drive. Pt also reports that they utilize taxis. DME:Pt states that they have a BGM at home but is requesting a new script for this as well as supplies. Rx signed by Dr. Park Rx given to the pt at this time. Pt also states that they have a shower chair, Cane, grab bars, walker, pulse ox, and BP Monitor at home. Pt is also requesting a BSC. Pt also reports that she believes that the pt needs home oxygen. A verbal list of local in-network DME companies provided to the pt at this time. Pt states that she would prefer to go through [employer]. Pt educated that if the pt ends up going to a SNF at time of DC, the SNF will have to set this DME up for the pt. Pt states understanding. Will follow. HHC/SNF: Denies history Smoking/ETOH: Pt states that the pt smokes a little less than 1/2 PPD. Denies ETOH use Plan: TBD. Today is VD#2. Anticipate SNF vs HH. At this time, it is too early to decipher what the pt will best qualify for at time of DC. PT to be held today. SW and CM to follow. Reji Kaplan RN, CM
--- NOTE | 2023-12-22 12:59 | CHAPLAIN ---
Type of Pastoral Visit ___ Initial Visit _x__ Follow-up Visit ___ On-call Visit ___ General Patient Visit ___ Spiritual Assessment ___ Family Conference ___ Bereavement ___ Rapid Response ___ Code Blue ___ Other (describe below) Pastoral Care Referral From ___ Patient _x__ Family ___ Nurse ___ Physician ___ Archeologist Classical ___ Vision Teacher ___ Other (describe below) Sacrament/Intervention _x__ Active listening ___ Anointing ___ Congregation ___ Bereavement ___ Communion ___ Suzette exploration ___ ___ Life review _x__ Prayer ___ Reconciliation ___ Sacrament of Sick _x__ Supportive presence ___ Wedding ___ Other (describe below) Pastoral Comments patient is making improvements and he may be taken off the vent today; is with him and she is welcoming of visit and excited to tell this registration rep what has happened since yesterday in the ED; spouse has been with the patient and is encouraged about answers to prayer and his improving situation; spouse speaks of this being a turning point for pt to receive the care and follow up that is needed; spouse welcomes presence and prayer
[2023-12-22] MEDS: fentaNYL drip 100 ML 7.5 MCG CONT INF (15:25)
--- NOTE | 2023-12-22 15:41 | WOUNDNOTE ---
wound photo: left lateral malleolus
--- NOTE | 2023-12-22 15:42 | WOUNDNOTE ---
wound photo: right lateral malleolus'
[2023-12-22] MEDS: Acetaminophen 650 MG/20 ML UDC GT (16:56)
[2023-12-22] MEDS: Amitriptyline 25 MG Tablet 50 MG PO (19:42)
[2023-12-22] MEDS: Piperacil/Tazobactam 3.375 GM in 0.9% Normal Saline (50mL MB+) 50 ML IV (19:42)
[2023-12-22 21:49] LABS: Bedside Glucose 72 mg/dL (74-106)
[2023-12-22] MEDS: fentaNYL drip 100 ML 12.5 MCG CONT INF (22:51)
[2023-12-23] VITALS (37 sets, daily range): BP systolic 110–171; BP diastolic 46–99; PULSE 59–70; RESP 12–32; TEMP 36.5–37.8; O2SAT 93–100; BMI 26.3
[2023-12-23 00:27] LABS: Bedside Glucose 71 mg/dL (74-106)
[2023-12-23 04:00] LABS: Absolute Lymphocyte Count 0.94 X10^3/uL (0.83-4.51); Absolute Neutrophil Count 8.1 X10^3/uL (2.0-7.7); Basophil# 0.06 X10^3/uL; Basophil% 0.6 % (0-1); Eosinophil# 0.08 X10^3/uL; Eosinophils% 0.8 % (0-5); Hematocrit 22.3 % (40-54); Hemoglobin 7.3 g/dL (13.0-16.5); Lymphocyte # 0.94 X10^3/ul (0.83-4.51); Mean Corp Hgb Conc 32.7 g/dL (32-36); Mean Corpuscular Hgb 32.3 pg (27.0-32.0); Mean Corpuscular Volume 98.7 fL (80-94); Mean Platelet Vol. 10.3 fl (6.2-12.0); Monocyte% 11.5 % (0-10); NRBC Flagged by Analyzer 0 % (0-5); Neutrophil % 77.6 % (47-70); Platelet Count 198 K/mm3 (150-450); RBC Distribution Width CV 15.1 % (11.6-14.6); RBC Distribution Width SD 54.4 fl (35.1-43.9); Red Blood Count 2.26 M/mm3 (4.6-6.2); White Blood Count 10.4 K/mm3 (4.4-11.0)
[2023-12-23] MEDS: Acetaminophen 650 MG/20 ML UDC GT (04:01)
[2023-12-23 04:15] LABS: Anion Gap 10 (5-15); BUN 58 mg/dL (7-18); BUN/Creat Ratio 17.1 RATIO (10-20); Calcium,Total 8.4 mg/dL (8.5-10.1); Chloride 110 mmol/L (98-107); EST Glomerular Filtration Rate 19 mL/min (>60); Est Glom Filt Rate - Afr Amer 23 mL/min (>60); Estimated Creatinine Clearance 21.47 ml/min; Glucose 72 mg/dL (74-106); Potassium 3.3 mmol/L (3.5-5.1); Sodium Level 139 mmol/L (136-145)
[2023-12-23] MEDS: Piperacil/Tazobactam 3.375 GM in 0.9% Normal Saline (50mL MB+) 50 ML IV ×3 (05:04→21:15)
[2023-12-23] MEDS: Heparin Injection (Vial) 5,000 UNIT/ML VIAL 5000 UNIT SC ×3 (05:06→21:16)
[2023-12-23] MEDS: 0.9% Saline Lock 10 ML Syringe IV (05:13)
[2023-12-23 05:42] LABS: Bedside Glucose 76 mg/dL (74-106)
[2023-12-23] MEDS: fentaNYL drip 100 ML 10 MCG CONT INF (06:48)
[2023-12-23] MEDS: Metoprolol Tartrate 50 MG Tablet PO (08:09)
[2023-12-23] MEDS: Sertraline 50 MG Tablet 150 MG PO (08:09)
[2023-12-23] MEDS: Aspirin E.C. 81 MG Tablet PO (08:09)
[2023-12-23] MEDS: Pantoprazole Sodium 40 MG in 0.9% Normal Saline (100mL MB+) 100 ML 330 MG IV ×2 (08:11→20:44)
--- NOTE | 2023-12-23 08:56 | PCM.PN.INT ---
Assessment & Plan Assessment/Plan (1) Acute kidney injury: (2) Acute hypoxemic respiratory failure: PLAN: Plan RECOMMENDATIONS: 1. Continue assist-control mode mechanical ventilation. Wean FiO2 and PEEP to maintain saturations at or above 90%. 2. Continue with daily paired spontaneous awakening and breathing trials. 3. Continue empiric antibiotics. Check MRSA screen along with procalcitonin. 4. Send type and screen. Continue to monitor H&H and transfuse if hemoglobin drops below 7 g/dL. 5. Electrolyte repletion as ordered. 6. Initiate Precedex for sedation. 7. Increase PPI therapy to every 12 hours. 8. Continue appropriate DVT prophylaxis. IMPRESSIONS: 1. Acute hypercapnic and hypoxemic respiratory failure Unclear precipitating etiology. Potential considerations include CHF exacerbation versus possible pneumonia given interval development of fevers and sputum production. At this time, given the patient's underlying renal insufficiency, recommend against utilizing diuretics. The patient has been initiated on antimicrobials, with cultures pending. Plan to continue current supportive measures and reattempt spontaneous awakening and breathing trials on a daily basis. 2. Encephalopathy Most likely metabolic in etiology. In addition, I am concerned that the patient is on a combination of gabapentin and methadone as an outpatient which, coupled with his renal insufficiency, may have contributed his depressed mental state. Therefore, we will plan to minimize sedating medications as feasible. CT head did not reveal any acute intracranial process. 3. Acute versus chronic kidney disease I suspect that his renal insufficiency is likely acute. However, I do not have any laboratory evidence to confirm this assertion, as his last creatinine was around 1.0 approximately 2 years ago. Given that his creatinine has increased this morning, we will plan to obtain nephrology consultation. Renal ultrasound only demonstrated possible sequelae of medical renal disease. 4. History of hypertension/coronary artery disease/diabetes mellitus/anxiety/depression/history of pericardial effusion Complicates care, management, recovery and prognosis. Continue supportive care as outlined above. Okay to initiate tube feeding from my perspective. TIME: 34 minutes of critical care time, independent of procedures, was spent addressing the patient's acute hypercapnic and hypoxemic respiratory failure, encephalopathy, acute kidney injury, review of all data and collaboration with the care team. Subjective Subjective The patient was seen and examined at the bedside this morning. Events from the last 24 hours have been reviewed. The patient currently has a low-grade fever but remains otherwise hemodynamically stable on assist-control mode mechanical ventilation with an FiO2 requirement of 25% and PEEP of 5. Yesterday evening, the patient developed fevers and was therefore initiated on antimicrobials. Nursing staff has reported thick endotracheal tube secretions. Unfortunately, the patient failed his spontaneous breathing trial this morning. White blood cell count remains normal this morning. Hemoglobin is down to 7.3 g/dL. Chemistry profile was notable for a potassium of 3.3, bicarbonate of 19 and a creatinine of 3.4. Objective Data Objective Data The patient's most recent lab work, culture data and imaging studies have all been personally reviewed. Surface echocardiogram demonstrated moderate concentric LVH with an ejection fraction of 60% and stage I diastolic dysfunction. Pulmonary artery systolic pressure was estimated to be 35 mmHg. A moderate pericardial effusion was noted without evidence of tamponade. COVID, influenza and RSV PCR's were negative. Sputum and blood cultures are pending. Vital Signs: Vital Signs Temp Pulse Resp BP Pulse Ox O2 Del Method O2 Flow Rate 99.4 F H 68 18 113/54 L 98 Mechanical Ventilator 25 12/23/23 08:00 12/23/23 08:09 12/23/23 08:00 12/23/23 08:09 12/23/23 08:00 12/23/23 08:00 12/23/23 07:04 FiO2 25 12/23/23 08:00 Oxygen Flow Rate (L/min) 25 Oxygen Delivery Method Mechanical Ventilator Weight: 188 lb 3.2 oz Body Mass Index (BMI) 26.3 Intake & Output: Intake and Output for Last 24 Hours 12/21/23 12/22/23 12/23/23 23:59 23:59 23:59 Intake Total 31.40 / 40.45 378.01 / 384.26 216.88 / 216.88 Output Total 2350 / 2350 1300 / 1300 350 / 350 Balance -2318.60 / -2309.55 -921.99 / -915.74 -133.12 / -133.12 Lab / Micro Data Attestation: I reviewed the patient's lab results. 12/23/23 03:50 12/23/23 03:50 Labs: Laboratory Results - last 24 hr 12/22/23 11:08: POC Glucose 75 12/22/23 17:28: POC Glucose 72 L 12/23/23 00:09: POC Glucose 71 L 12/23/23 03:50: WBC 10.4, RBC 2.26 L, Hgb 7.3 L, Hct 22.3 L, MCV 98.7 H, MCH 32.3 H, MCHC 32.7, RDW Std Deviation 54.4 H, RDW Coeff of Khris 15.1 H, Plt Count 198, MPV 10.3, Immature Gran % (Auto) 0.500, Neut % (Auto) 77.6 H, Lymph % (Auto) 9.0 L, Hyde % (Auto) 11.5 H, Eos % (Auto) 0.8, Baso % (Auto) 0.6, Absolute Neuts (auto) 8.1 H, Absolute Lymphs (auto) 0.94, Nucleated RBC % 0, Sodium 139, Potassium 3.3 L, Chloride 110 H, Carbon Dioxide 19.0 L, Anion Gap 10, BUN 58 H, Creatinine 3.40 H, Estim Creat Clear Calc 21.47, Est GFR (MDRD) Af Amer 23 L, Est GFR (MDRD) Non-Af 19 L, BUN/Creatinine Ratio 17.1, Glucose 72 L, Calcium 8.4 L 12/23/23 05:09: POC Glucose 76 Micro: Microbiology 12/21/23 16:27 Sputum, Induced/Lukens Gram Stain - Final 12/21/23 16:27 Sputum, Induced/Lukens Respiratory Culture - Preliminary Appears to be normal respiratory calista. Further studies to follow. 12/21/23 16:17 Stool Stool Occult Blood (ELISABETH) - Final 12/21/23 14:47 Mucosa - Nose SARS-CoV-2, Influenza & RSV (PCR) - Final ABG Data ABG results: ABG 12/22/23 11:01 Specimen Type LUKE Sample Site Not entered VBG pH 7.25 L VBG pO2 31 VBG HCO3 21 L VBG Total CO2 22 L VBG O2 Sat (Calc) 49 L VBG Base Excess -7 L POC Mix VBG pCO2 Pt Tmp 46.7 O2 Delivery Device Not entered Radiography Diagnostic Testing: Radiology Impression Echocardiogram 12/21/23 16:40 Interpretation Summary Normal LV size. Moderate concentric left ventricular hypertrophy. Left ventricular systolic function is normal. The left ventricular ejection fraction is 60 %. Stage 1 diastolic dysfunction. Measures between 1 and 2 cm but posterior to the left ventricle is approximately 2.6 cm Ordering Physician: Elliott Duenas Performed By: Josue Selby RCS Chest X-Ray 12/22/23 08:38 IMPRESSION: Improved aeration of both lungs with residual atelectasis and/or infiltrates of both lung bases more prominent on the left side. Blunting of the left costophrenic angle. Electronically Signed: Ruslan Odell MD at 9:33 EST Reading Location ID and State: [facility] / [place] , Service support , Physical Exam Const Constitutional Narrative: Intubated, sedated and mechanically ventilated. No ventilator dyssynchrony at the present time. HEENT normocephalic and head/scalp atraumatic Mouth: endotracheal tube in place and OG tube in place Eyes PERRL, EOMs intact bilaterally and conjunctivae normal Neck supple General: trachea midline Chest inspection of chest normal Resp Auscultation: diminished lung sounds; Negative for rales, rhonchi or wheezes Cardio regular rate and regular rhythm GI normal to inspection, nondistended, normoactive bowel sounds Extremity no clubbing, cyanosis or edema Skin no rashes or lesions noted Neuro Sensorium / Orientation: sedated on vent Charges/Coding Procedures Hospitalists Procedures: [id number] Critical Care 1st Hr
[2023-12-23] MEDS: Potassium Chloride 10mEq/100mL 10 MEQ/100 ML IV.SOLN. 100 MEQ IV BOLUS ×4 (11:09→14:30)
[2023-12-23 11:34] LABS: Procalcitonin 0.39 ng/mL (0.00-0.09)
[2023-12-23 12:30] LABS: Bedside Glucose 75 mg/dL (74-106)
[2023-12-23 13:17] LABS: M R Staph aureus DNA By PCR Negative (Negative); Probe Check PASS; Specimen Processing Control PASS; Staph aureus DNA By PCR NEGATIVE (Negative)
--- NOTE | 2023-12-23 15:21 | PN.HOSP_ITS ---
Reason for Visit Reason for Visit: Diagnoses Anemia, unspecified (12/21/23) Heart failure, unspecified (12/21/23) Acute respiratory failure with hypoxia (12/21/23) Acute kidney failure, unspecified (12/21/23) Subjective Subjective Patient was seen and examined today, he was not able to be weaned from the ventilator today due to somnolence. Patient's potassium was slightly low today at 3.3, creatinine is elevated at 3.4, patient was placed on antibiotics yesterday due to a spike in temperature. Tmax today was 100.1. Patient's white blood cell count remains normal, hemoglobin this morning was 7.3 however. Objective Data Objective Data Vital Signs: Vital Signs Temp Pulse Resp BP Pulse Ox O2 Del Method O2 Flow Rate 99.4 F H 61 18 137/59 H 96 Room Air 25 12/23/23 08:00 12/23/23 14:00 12/23/23 14:00 12/23/23 12:00 12/23/23 14:00 12/23/23 12:00 12/23/23 07:04 FiO2 25 12/23/23 14:00 Oxygen Flow Rate (L/min) 25 Oxygen Delivery Method Room Air Weight: 85.366 kg Body Mass Index (BMI) 26.3 Intake & Output: Intake and Output for Last 24 Hours 12/21/23 12/22/23 12/23/23 23:59 23:59 23:59 Intake Total 31.40 / 40.45 378.01 / 384.26 566.88 / 566.88 Output Total 2350 / 2350 1300 / 1300 350 / 350 Balance -2318.60 / -2309.55 -921.99 / -915.74 216.88 / 216.88 Lab / Micro Data 12/23/23 03:50 12/23/23 03:50 Labs: Laboratory Results - last 24 hr 12/22/23 17:28: POC Glucose 72 L 12/23/23 00:09: POC Glucose 71 L 12/23/23 03:50: WBC 10.4, RBC 2.26 L, Hgb 7.3 L, Hct 22.3 L, MCV 98.7 H, MCH 32.3 H, MCHC 32.7, RDW Std Deviation 54.4 H, RDW Coeff of Khris 15.1 H, Plt Count 198, MPV 10.3, Immature Gran % (Auto) 0.500, Neut % (Auto) 77.6 H, Lymph % (Auto) 9.0 L, [place] % (Auto) 11.5 H, Eos % (Auto) 0.8, Baso % (Auto) 0.6, A bsolute Neuts (auto) 8.1 H, Absolute Lymphs (auto) 0.94, Nucleated RBC % 0, Sodium 139, Potassium 3.3 L, Chloride 110 H, Carbon Dioxide 19.0 L, Anion Gap 10, BUN 58 H, Creatinine 3.40 H, Estim Creat Clear Calc 21.47, Est GFR (MDRD) Af Amer 23 L, Est GFR (MDRD) Non-Af 19 L, BUN/Creatinine Ratio 17.1, Glucose 72 L, Calcium 8.4 L 12/23/23 05:09: POC Glucose 76 12/23/23 10:45: Procalcitonin 0.39 H, Blood Type A POSITIVE, Antibody Screen NEGATIVE 12/23/23 11:25: S.aureus Protein A PCR NEGATIVE, MRSA (PCR) Negative 12/23/23 12:08: POC Glucose 75 Micro: Microbiology 12/23/23 09:02 Sputum, Induced/Lukens Gram Stain - Final 12/23/23 10:45 Nasal Secretion MRSA (PCR) - Final 12/21/23 16:27 Sputum, Induced/Lukens Gram Stain - Final 12/21/23 16:27 Sputum, Induced/Lukens Respiratory Culture - Preliminary Appears to be normal respiratory calista. Further studies to follow. 12/21/23 16:17 Stool Stool Occult Blood (ELISABETH) - Final 12/21/23 14:47 Mucosa - Nose SARS-CoV-2, Influenza & RSV (PCR) - Final Physical Exam Narrative Constitutional Narrative: Patient is sedated and on the ventilator General Appearance: well kempt and well developed HEENT normocephalic, head/scalp atraumatic and moist oral mucous membranes Eyes PERRL, EOMs intact bilaterally and conjunctivae normal Neck supple, no JVD and thyroid normal General: trachea midline Resp clear to auscultation bilaterally Auscultation: Negative for rales, rhonchi or wheezes Cardio regular rate, regular rhythm, S1 normal heart sound, S2 normal heart sound, no murmurs, no rub and no gallops GI normal to inspection, nondistended, normoactive bowel sounds and non-distended Extremity Extremity Narrative: There is generalized edema of the lower legs with blister formation on the left leg over the anterior mederos area. Skin Skin Narrative: There are open areas on the lateral malleolus bilaterally, these appear to be approximately 4 cm in diameter and are round, these appear to be full skin thickness Neuro Neuro Narrative: Patient is sedated and on the ventilator Psych Psych Narrative: Patient is sedated and on the ventilator Assessment & Plan Assessment/Plan (1) Acute exacerbation of CHF (congestive heart failure): PLAN: Plan 1. Acute hypoxic respiratory failure-etiology unclear at this point, may have resulted from acute exacerbation of chronic CHF-patient was taken off diuretics by critical care due to his elevated creatinine, patient has had no labs drawn at his PCPs office since 2019 (I called their office this morning), his last office visit was approximately a year ago, I have asked if they could forward it to ICU along with his last EKG. Pulmonary states they are doing a weaning trial on him this morning #2 acute kidney injury-patient's baseline kidney functions are unknown at this time, his last BMP appears to be in 2021. I discussed having nephrology see the patient with critical care, they wanted to review the chart and make a decision. Patient had an ultrasound of his kidneys done yesterday, there is echogenic right sided renal parenchyma suggestive of a sequela I of chronic renal insufficiency or medical renal disease, no evidence of hydronephrosis is noted. Since patient is noncompliant with getting labs performed, it is difficult to determine what is his baseline creatinine. #3 history of congestive heart failure-type unknown, patient will have an echocardiogram today #4 chronic pain syndrome-patient takes methadone chronically at home according to the , she thinks he is on 10 mg twice a day, he also takes gabapentin 600 mg 3 times a day, he had been off this medication for a while #5 anemia-etiology unclear, patient's ferritin level is normal which could indicate this is anemia of chronic disease such as an anemia of renal failure. Labs will be monitored, patient's hemoglobin today was 9.1 #6 essential hypertension-patient's blood pressure will be monitored #7 history of type 2 diabetes-patient's blood sugars will be monitored #8 chronic obstructive pulmonary disease-complicates care, management, recovery, and prognosis #9 stage III pressure injuries lateral malleolus bilaterally-wound care is seeing the patient Total clinical time spent by myself addressing patient's medical issues, reviewing all of his data, and collaborating with patient's care team: 35 minutes Charges/Coding Visit Charges Inpatient E&M: 29176 Subs Hosp L2
[2023-12-23] MEDS: dexMEDEtomidine 400 MCG in 0.9% Normal Saline (100mL Bag) 96 ML 10.7 MCG CONT INF ×2 (16:00→21:57)
[2023-12-23 16:43] LABS: Hemoglobin 8.2 g/dL (13.0-16.5)
[2023-12-23 17:39] LABS: Bedside Glucose 80 mg/dL (74-106)
--- NOTE | 2023-12-23 20:07 | CON.PCM.RE_ITS ---
Assessment & Plan Assessment/Plan (1) Acute kidney injury: PLAN: Baseline creatinine was normal but that was about 2 years ago. Came in with a creatinine of about 3, slowly worsening. Urine output is present. Urine analysis with proteinuria. Will send for quantification. Depending on the amount of protein, will order further workup. Renal ultrasound with echogenic right kidney. No acute indications for renal replacement therapy. Okay to use Lasix as needed for volume overload. HPI Consult Data Date of Consult: 12/23/23 HPI Narrative Reason for Consultation: CHALRIE HPI Narrative: KENDRA BAILEY, is a 68 M who presents To the hospital with shortness of breath. Intubated for hypoxic/hypercapnic respiratory failure. Nephrology on consultation in view of acute renal failure. No recent labs available. Last known creatinine was normal but that was from 2021. Current creatinine around 3.4. Urine output is present. Renal ultrasound without any hydronephrosis. [facility] Medical History Acute respiratory failure Acute respiratory failure with hypoxia and hypercapnia Adjustment disorder Altered mental status Anxiety Calcification of cheesh-na coronary artery Cardiomegaly Carotid artery stenosis Chronic kidney disease (CKD) Chronic pain Chronically on opiate therapy Congestive heart failure (CHF) COPD (chronic obstructive pulmonary disease) Depression Encephalopathy Essential (primary) hypertension History of sepsis HLD (hyperlipidemia) Insomnia Kidney stones Migraines Nicotine dependence Opiate dependence Orthopnea EBONY and COPD overlap syndrome Pericardial effusion (06/2020) Pleural effusion Right arm weakness Smoker Stenosis of right carotid artery Type 2 diabetes mellitus Type 2 diabetes mellitus without complication Home Medications ?Medication ?Instructions ?Recorded ?Last Taken ?Type nitroglycerin 0.4 mg sublingual 0.4 mg sublingual PRN PRN pain 04/23/16 09/15/16 History tablet metoprolol tartrate 50 mg tablet 50 mg PO BID heart rate 07/10/18 12/20/23 History albuterol sulfate 90 mcg/actuation 2 puff inhalation Q4H PRN sob 16 07/19/18 12/20/23 History aerosol inhaler days #18 grams hydrochlorothiazide 25 mg tablet 25 mg PO DAILY diuretic #90 tabs 08/10/18 12/20/23 History acetaminophen 500 mg tablet 500 mg PO Q4H PRN Headache 08/02/20 07/25/21 History aspirin 81 mg tablet,delayed 81 mg PO DAILY heart health 08/02/20 12/20/23 History release (Adult Low Dose Aspirin) cholecalciferol (vitamin D3) 1,250 1,250 mcg PO QWEEK supplement #12 08/02/20 12/20/23 History mcg (50,000 unit) capsule caps gabapentin 600 mg tablet 600 mg PO TID nerve pain 08/02/20 12/20/23 History insulin NPH-regular 70-30 U-100 14 unit subcut BID 08/02/20 12/20/23 History insulin 100 unit/mL subcutaneous pen lisinopril 40 mg tablet 40 mg PO DAILY blood pressure 08/02/20 12/20/23 History methadone 10 mg tablet 10 mg PO BID PRN Pain 08/02/20 12/20/23 History sertraline 100 mg tablet 150 mg PO DAILY mental health 08/02/20 12/20/23 History potassium chloride 20 mEq 20 meq PO BID #60 tabs 07/29/21 12/20/23 Rx tablet,extended release amitriptyline 50 mg tablet 50 - 100 mg PO QHS 12/21/23 12/20/23 History cyclobenzaprine 10 mg tablet 10 mg PO TID PRN PRN muscle spasm 12/21/23 Unknown History sertraline 50 mg tablet 150 mg PO DAILY 12/21/23 12/20/23 History Allergy/AdvReac Type Severity Reaction Status Date / Time No Known Allergies Allergy Verified 12/21/23 14:03 Family History Uncle Myocardial infarction Father Diabetes Melanoma Cancer bladder Mother Diabetes Heart disease Grandfather Parkinson's disease Grandmother Breast cancer Surgical History History of cholecystectomy (09/17/12) History of fusion of cervical spine History of repair of right rotator cuff History of tonsillectomy Hx of appendectomy (~1962) Social History Smoking Status: Current every day smoker tobacco type: cigarettes Tobacco: How many years used: 20 alcohol intake: never substance use type: does not use ROS Review of Systems ROS Unobtainable: due to endotracheal tube Physical Exam Narrative no obvious distress no pallor no icterus no JVD s1s2 no murmurs lungs clear abdomen soft no organomegaly no edema no cyanosis archuleta + Lab / Micro Data 12/23/23 16:15 12/23/23 03:50 Labs: Laboratory Results - last 24 hr 12/22/23 17:28: POC Glucose 72 L 12/23/23 00:09: POC Glucose 71 L 12/23/23 03:50: WBC 10.4, RBC 2.26 L, Hgb 7.3 L, Hct 22.3 L, MCV 98.7 H, MCH 32.3 H, MCHC 32.7, RDW Std Deviation 54.4 H, RDW Coeff of Khris 15.1 H, Plt Count 198, MPV 10.3, Immature Gran % (Auto) 0.500, Neut % (Auto) 77.6 H, Lymph % (Auto) 9.0 L, [place] % (Auto) 11.5 H, Eos % (Auto) 0.8, Baso % (Auto) 0.6, A bsolute Neuts (auto) 8.1 H, Absolute Lymphs (auto) 0.94, Nucleated RBC % 0, Sodium 139, Potassium 3.3 L, Chloride 110 H, Carbon Dioxide 19.0 L, Anion Gap 10, BUN 58 H, Creatinine 3.40 H, Estim Creat Clear Calc 21.47, Est GFR (MDRD) Af Amer 23 L, Est GFR (MDRD) Non-Af 19 L, BUN/Creatinine Ratio 17.1, Glucose 72 L, Calcium 8.4 L 12/23/23 05:09: POC Glucose 76 12/23/23 10:45: Procalcitonin 0.39 H, Blood Type A POSITIVE, Antibody Screen NEGATIVE 12/23/23 11:25: S.aureus Protein A PCR NEGATIVE, MRSA (PCR) Negative 12/23/23 12:08: POC Glucose 75 12/23/23 16:15: Hgb 8.2 L, Hct 25.0 L 12/23/23 17:11: POC Glucose 80 Micro: Microbiology 12/21/23 16:27 Sputum, Induced/Lukens Gram Stain - Final 12/21/23 16:27 Sputum, Induced/Lukens Respiratory Culture - Preliminary Appears to be normal respiratory calista. Further studies to follow. 12/23/23 09:02 Sputum, Induced/Lukens Gram Stain - Final 12/23/23 10:45 Nasal Secretion MRSA (PCR) - Final
[2023-12-23 20:49] LABS: Protein, Urine (Random) 202.9 mg/dL (<11.9); Protein:Creat Ratio 3940 mg/g CRE (0-200)
[2023-12-23] MEDS: Amitriptyline 25 MG Tablet 50 MG GT (21:17)
[2023-12-23] MEDS: hydrALAZINE 20 MG/ML Vial 10 MG IV (21:21)
[2023-12-23 23:41] LABS: Bedside Glucose 92 mg/dL (74-106)
[2023-12-24] VITALS (31 sets, daily range): BP systolic 101–183; BP diastolic 53–70; PULSE 57–84; RESP 14–35; TEMP 35.9–37.2; O2SAT 89–98; BMI 26.7
[2023-12-24 04:33] LABS: Basophil# 0.07 X10^3/uL; Basophil% 0.6 % (0-1); Eosinophil# 0.09 X10^3/uL; Eosinophils% 0.8 % (0-5); Hematocrit 27.5 % (40-54); Hemoglobin 8.8 g/dL (13.0-16.5); Lymphocyte % 6.7 % (19-41); Mean Corpuscular Hgb 32.1 pg (27.0-32.0); Mean Corpuscular Volume 100.4 fL (80-94); Mean Platelet Vol. 10.2 fl (6.2-12.0); Monocyte% 7.6 % (0-10); NRBC Flagged by Analyzer 0 % (0-5); Neutrophil # 9.97 X10^3/uL (2.7-7.7); Neutrophil % 83.6 % (47-70); Platelet Count 228 K/mm3 (150-450); RBC Distribution Width CV 15.1 % (11.6-14.6); RBC Distribution Width SD 55.4 fl (35.1-43.9); Red Blood Count 2.74 M/mm3 (4.6-6.2); White Blood Count 11.9 K/mm3 (4.4-11.0)
[2023-12-24] MEDS: dexMEDEtomidine 400 MCG in 0.9% Normal Saline (100mL Bag) 96 ML 14.9 MCG CONT INF (04:41)
[2023-12-24 04:45] LABS: Anion Gap 13 (5-15); BUN 63 mg/dL (7-18); BUN/Creat Ratio 17.3 RATIO (10-20); Calcium,Total 8.9 mg/dL (8.5-10.1); Chloride 110 mmol/L (98-107); Creatinine, Serum 3.64 mg/dL (0.70-1.30); EST Glomerular Filtration Rate 18 mL/min (>60); Est Glom Filt Rate - Afr Amer 22 mL/min (>60); Estimated Creatinine Clearance 20.05 ml/min; Glucose 108 mg/dL (74-106); Potassium 3.6 mmol/L (3.5-5.1); Sodium Level 137 mmol/L (136-145)
[2023-12-24] MEDS: Piperacil/Tazobactam 3.375 GM in 0.9% Normal Saline (50mL MB+) 50 ML IV ×3 (05:44→20:57)
[2023-12-24] MEDS: Heparin Injection (Vial) 5,000 UNIT/ML VIAL 5000 UNIT SC ×3 (05:44→21:01)
[2023-12-24] MEDS: TITRATION PARAMETER CHANGE 1 EACH IV (06:09)
[2023-12-24 06:10] LABS: Bedside Glucose 99 mg/dL (74-106)
[2023-12-24] MEDS: Aspirin 81 MG TAB.CHEW GT (08:11)
--- NOTE | 2023-12-24 08:42 | PN.CC_ITS ---
Assessment & Plan Assessment/Plan (1) Acute kidney injury: (2) Acute hypoxemic respiratory failure: PLAN: Plan RECOMMENDATIONS: 1. Proceed with a trial of extubation this morning. 2. Once extubated, wean supplemental oxygen to maintain saturations at or above 90%. 3. Performance bedside swallow evaluation with dietary advancement as tolerated. 4. Continue empiric antibiotics. 5. Continue to monitor H&H and transfuse if hemoglobin drops below 7 g/dL. 6. Continue PPI therapy as ordered along with appropriate DVT prophylaxis. 7. Encourage incentive spirometer use and mobilize patient as tolerated. IMPRESSIONS: 1. Acute hypercapnic and hypoxemic respiratory failure Unclear precipitating etiology. Potential considerations include CHF exacerbation versus possible pneumonia, given interval development of fevers and sputum production. The patient does not seem overtly volume overloaded. Therefore, I have opted to hold off on initiating IV diuresis, given underlying renal insufficiency. The patient will be continued on antimicrobials, pending finalized culture results. Given that the patient is alert and passed his spontaneous breathing trial this morning, we will plan to proceed with extubation. Supplemental oxygen can be weaned as tolerated. 2. Encephalopathy Improved. Most likely metabolic in etiology. In addition, I am concerned that the patient is on a combination of gabapentin and methadone as an outpatient which, coupled with his renal insufficiency, may have contributed his depressed mental state. Therefore, we will plan to minimize sedating medications as feasible. CT head did not reveal any acute intracranial process. 3. Acute versus chronic kidney disease I suspect that his renal insufficiency is likely acute. However, I do not have any laboratory evidence to confirm this assertion, as his last creatinine was around 1.0 approximately 2 years ago. Renal ultrasound only demonstrated possible sequelae of medical renal disease. Nephrology is following to assist with medical management. 4. History of hypertension/coronary artery disease/diabetes mellitus/anxiety/depression/history of pericardial effusion Complicates care, management, recovery and prognosis. Continue supportive care as outlined above. Perform bedside swallow evaluation prior to advancing diet. Physical therapy to work with the patient. TIME: 33 minutes of critical care time, independent of procedures, was spent addressing the patient's acute hypercapnic and hypoxemic respiratory failure, encephalopathy, acute kidney injury, review of all data and collaboration with the care team. Subjective Subjective The patient was seen and examined at the bedside this morning. Events from the last 24 hours have been reviewed. The patient is currently afebrile, hemodynamically stable and maintaining appropriate oxygen saturations on assist- control mode mechanical ventilation with an FiO2 requirement of 21% and PEEP of 5. No overnight issues were identified by the nursing staff. White blood cell count is mildly elevated at 12,000 with a hemoglobin of 8.8 g/dL. Bicarbonate is low at 15 with a BUN of 63 and creatinine of 3.64. Following my initial evaluation of the patient this morning, he was deemed to be appropriate to proceed with a spontaneous breathing trial. The patient is alert and appropriately interactive. Ultimately, the patient did quite well on his spontaneous breathing trial and was able to be extubated. Objective Data Objective Data The patient's most recent lab work, culture data and imaging studies have all been personally reviewed. Surface echocardiogram demonstrated moderate concentric LVH with an ejection fraction of 60% and stage I diastolic dysfunction. Pulmonary artery systolic pressure was estimated to be 35 mmHg. A moderate pericardial effusion was noted without evidence of tamponade. COVID, influenza and RSV PCR's were negative. Sputum and blood cultures are pending. Vital Signs: Vital Signs Temp Pulse Resp BP Pulse Ox O2 Del Method O2 Flow Rate 98.4 F 57 L 27 H 142/62 H 94 Mechanical Ventilator 25 12/24/23 08:00 12/24/23 08:00 12/24/23 08:00 12/24/23 08:00 12/24/23 08:00 12/24/23 08:00 12/23/23 07:04 FiO2 21 12/24/23 08:00 Oxygen Flow Rate (L/min) 25 Oxygen Delivery Method Mechanical Ventilator Weight: 191 lb 2.252 oz Body Mass Index (BMI) 26.7 Intake & Output: Intake and Output for Last 24 Hours 12/22/23 12/23/23 12/24/23 23:59 23:59 23:59 Intake Total 378.01 / 384.26 968.70 / 979.88 174.28 / 174.28 Output Total 1300 / 1300 1550 / 1550 350 / 350 Balance -921.99 / -915.74 -581.30 / -570.12 -175.72 / -175.72 Lab / Micro Data Attestation: I reviewed the patient's lab results. 12/24/23 04:20 12/24/23 04:20 Labs: Laboratory Results - last 24 hr 12/23/23 10:45: Procalcitonin 0.39 H, Blood Type A POSITIVE, Antibody Screen NEGATIVE 12/23/23 11:25: S.aureus Protein A PCR NEGATIVE, MRSA (PCR) Negative 12/23/23 12:08: POC Glucose 75 12/23/23 16:15: Hgb 8.2 L, Hct 25.0 L 12/23/23 17:11: POC Glucose 80 12/23/23 20:20: U Random Total Protein 202.9 H, Urine Creatinine 51.50, P rotein/Creatinin Ratio 3940 H 12/23/23 23:23: POC Glucose 92 12/24/23 04:20: WBC 11.9 H, RBC 2.74 L, Hgb 8.8 L, Hct 27.5 L, MCV 100.4 H, MCH 32.1 H, MCHC 32.0, RDW Std Deviation 55.4 H, RDW Coeff of Khris 15.1 H, Plt Count 228, MPV 10.2, Immature Gran % (Auto) 0.700, Neut % (Auto) 83.6 H, Lymph % (Auto) 6.7 L, [place] % (Auto) 7.6, Eos % (Auto) 0.8, Baso % (Auto) 0.6, Absolute Neuts (auto) 10.0 H, Absolute Lymphs (auto) 0.80 L, Nucleated RBC % 0, Sodium 137, Potassium 3.6, Chloride 110 H, Carbon Dioxide 15.0 L, Anion Gap 13, BUN 63 H, Creatinine 3.64 H, Estim Creat Clear Calc 20.05, Est GFR (MDRD) Af Amer 22 L, Est GFR (MDRD) Non-Af 18 L, BUN/Creatinine Ratio 17.3, Glucose 108 H, Calcium 8.9 12/24/23 05:42: POC Glucose 99 Micro: Microbiology 12/21/23 16:27 Sputum, Induced/Lukens Gram Stain - Final 12/21/23 16:27 Sputum, Induced/Lukens Respiratory Culture - Preliminary Appears to be normal respiratory calista. Further studies to follow. 12/23/23 09:02 Sputum, Induced/Lukens Gram Stain - Final 12/23/23 10:45 Nasal Secretion MRSA (PCR) - Final 12/21/23 16:17 Stool Stool Occult Blood (ELISABETH) - Final 12/21/23 14:47 Mucosa - Nose SARS-CoV-2, Influenza & RSV (PCR) - Final ABG Data ABG results: ABG 12/22/23 11:01 Specimen Type LUKE Sample Site Not entered VBG pH 7.25 L VBG pO2 31 VBG HCO3 21 L VBG Total CO2 22 L VBG O2 Sat (Calc) 49 L VBG Base Excess -7 L POC Mix VBG pCO2 Pt Tmp 46.7 O2 Delivery Device Not entered Radiography Diagnostic Testing: Radiology Impression Echocardiogram 12/21/23 16:40 Interpretation Summary Normal LV size. Moderate concentric left ventricular hypertrophy. Left ventricular systolic function is normal. The left ventricular ejection fraction is 60 %. Stage 1 diastolic dysfunction. Measures between 1 and 2 cm but posterior to the left ventricle is approximately 2.6 cm Ordering Physician: Elliott Duenas Performed By: Josue Selby RCS Chest X-Ray 12/22/23 08:38 IMPRESSION: Improved aeration of both lungs with residual atelectasis and/or infiltrates of both lung bases more prominent on the left side. Blunting of the left costophrenic angle. Electronically Signed: Ruslan Odell MD at 9:33 EST , Physical Exam Const Constitutional Narrative: Currently tolerating spontaneous mode of mechanical ventilation. HEENT normocephalic and head/scalp atraumatic Mouth: endotracheal tube in place and OG tube in place Eyes PERRL, EOMs intact bilaterally and conjunctivae normal Neck supple General: trachea midline Chest inspection of chest normal Resp Auscultation: diminished lung sounds; Negative for rales, rhonchi or wheezes Cardio regular rate and regular rhythm GI normal to inspection, nondistended, normoactive bowel sounds Extremity no clubbing, cyanosis or edema Skin no rashes or lesions noted Neuro Neuro Narrative: Alert and appropriately interactive. Able to follow simple commands. Charges/Coding Procedures Hospitalists Procedures: [id number] Critical Care 1st Hr
--- NOTE | 2023-12-24 09:28 | PCM.PN.HOSP ---
Reason for Visit Reason for Visit: Diagnoses Anemia, unspecified (12/21/23) Heart failure, unspecified (12/21/23) Acute respiratory failure with hypoxia (12/21/23) Acute kidney failure, unspecified (12/21/23) Subjective Subjective Patient was seen and examined today, he remains on the ventilator at this time, I talked with critical care and they are going to try a weaning trial today. Patient's creatinine today was 3.6, BUN was 63, patient's hemoglobin was 8.8. White blood cell count was slightly elevated today at 11.9. Objective Data Objective Data Vital Signs: Vital Signs Temp Pulse Resp BP Pulse Ox O2 Del Method O2 Flow Rate 98.4 F 58 L 24 H 132/57 H 95 Mechanical Ventilator 25 12/24/23 08:00 12/24/23 09:00 12/24/23 09:00 12/24/23 09:00 12/24/23 09:00 12/24/23 09:00 12/23/23 07:04 FiO2 21 12/24/23 08:00 Oxygen Flow Rate (L/min) 25 Oxygen Delivery Method Mechanical Ventilator Weight: 86.7 kg Body Mass Index (BMI) 26.7 Intake & Output: Intake and Output for Last 24 Hours 12/22/23 12/23/23 12/24/23 23:59 23:59 23:59 Intake Total 378.01 / 384.26 968.70 / 979.88 187.28 / 187.28 Output Total 1300 / 1300 1550 / 1550 350 / 350 Balance -921.99 / -915.74 -581.30 / -570.12 -162.72 / -162.72 Lab / Micro Data 12/24/23 04:20 12/24/23 04:20 Labs: Laboratory Results - last 24 hr 12/23/23 10:45: Procalcitonin 0.39 H, Blood Type A POSITIVE, Antibody Screen NEGATIVE 12/23/23 11:25: S.aureus Protein A PCR NEGATIVE, MRSA (PCR) Negative 12/23/23 12:08: POC Glucose 75 12/23/23 16:15: Hgb 8.2 L, Hct 25.0 L 12/23/23 17:11: POC Glucose 80 12/23/23 20:20: U Random Total Protein 202.9 H, Urine Creatinine 51.50, Protein/Creatinin Ratio 3940 H 12/23/23 23:23: POC Glucose 92 12/24/23 04:20: WBC 11.9 H, RBC 2.74 L, Hgb 8.8 L, Hct 27.5 L, MCV 100.4 H, MCH 32.1 H, MCHC 32.0, RDW Std Deviation 55.4 H, RDW Coeff of Khris 15.1 H, Plt Count 228, MPV 10.2, Immature Gran % (Auto) 0.700, Neut % (Auto) 83.6 H, Lymph % (Auto) 6.7 L, [place] % (Auto) 7.6, Eos % (Auto) 0.8, Baso % (Auto) 0.6, Absolute Neuts (auto) 10.0 H, Absolute Lymphs (auto) 0.80 L, Nucleated RBC % 0, Sodium 137, Potassium 3.6, Chloride 110 H, Carbon Dioxide 15.0 L, Anion Gap 13, BUN 63 H, Creatinine 3.64 H, Estim Creat Clear Calc 20.05, Est GFR (MDRD) Af Amer 22 L, Est GFR (MDRD) Non-Af 18 L, BUN/Creatinine Ratio 17.3, Glucose 108 H, Calcium 8.9 12/24/23 05:42: POC Glucose 99 Micro: Microbiology 12/21/23 16:27 Sputum, Induced/Lukens Gram Stain - Final 12/21/23 16:27 Sputum, Induced/Lukens Respiratory Culture - Preliminary Appears to be normal respiratory calista. Further studies to follow. 12/23/23 09:02 Sputum, Induced/Lukens Gram Stain - Final 12/23/23 10:45 Nasal Secretion MRSA (PCR) - Final 12/21/23 16:17 Stool Stool Occult Blood (ELISABETH) - Final 12/21/23 14:47 Mucosa - Nose SARS-CoV-2, Influenza & RSV (PCR) - Final Physical Exam Narrative Constitutional Narrative: Patient is sedated and on the ventilator General Appearance: well kempt and well developed HEENT normocephalic, head/scalp atraumatic and moist oral mucous membranes Eyes PERRL, EOMs intact bilaterally and conjunctivae normal Neck supple, no JVD and thyroid normal General: trachea midline Resp clear to auscultation bilaterally Auscultation: Negative for rales, rhonchi or wheezes Cardio regular rate, regular rhythm, S1 normal heart sound, S2 normal heart sound, no murmurs, no rub and no gallops GI normal to inspection, nondistended, normoactive bowel sounds and non-distended Extremity Extremity Narrative: There is generalized edema of the lower legs with blister formation on the left leg over the anterior mederos area. Skin Skin Narrative: There are open areas on the lateral malleolus bilaterally, these appear to be approximately 4 cm in diameter and are round, these appear to be full skin thickness Neuro Neuro Narrative: Patient is sedated and on the ventilator Psych Psych Narrative: Patient is sedated and on the ventilator Assessment & Plan Assessment/Plan (1) Acute kidney injury: (2) Acute exacerbation of CHF (congestive heart failure): PLAN: Plan 1. Acute hypoxic respiratory failure-etiology unclear at this point, may have resulted from acute exacerbation of chronic CHF-patient was taken off diuretics by critical care due to his elevated creatinine, patient has had no labs drawn at his PCPs office since 2019 (I called their office this morning), his last office visit was approximately a year ago, I have asked if they could forward it to ICU along with his last EKG. Pulmonary states they are doing a weaning trial on him this morning #2 acute kidney injury-patient's baseline kidney functions are unknown at this time, his last BMP appears to be in 2021. Patient's creatinine has risen slightly over his hospitalization, again it is unknown what the patient's baseline creatinine is. Creatinine will be monitored. #3 Acute on chronic diastolic congestive heart failure-patient is currently not on any diuretics due to his renal function, last chest x-ray did not show evidence of congestive heart failure #4 chronic pain syndrome-patient takes methadone chronically at home according to the , she thinks he is on 10 mg twice a day, he also takes gabapentin 600 mg 3 times a day, he had been off this medication for a while #5 anemia-etiology unclear, patient's ferritin level is normal which could indicate this is anemia of chronic disease such as an anemia of renal failure. Labs will be monitored, patient's hemoglobin today was 8.8 #6 essential hypertension-patient's blood pressure will be monitored #7 history of type 2 diabetes-patient's blood sugars will be monitored #8 chronic obstructive pulmonary disease-complicates care, management, recovery, and prognosis #9 stage III pressure injuries lateral malleolus bilaterally-wound care is seeing the patient Total clinical time spent by myself addressing patient's medical issues, reviewing all of his data, and collaborating with patient's care team: 35 minutes Charges/Coding Visit Charges Inpatient E&M: 87980 Subs Hosp L2
[2023-12-24] MEDS: Pantoprazole Sodium 40 MG in 0.9% Normal Saline (100mL MB+) 100 ML 330 MG IV ×2 (10:58→20:58)
[2023-12-24] MEDS: Sertraline 50 MG Tablet 150 MG GT (12:18)
[2023-12-24] MEDS: oxyCODONE 5 MG Tablet PO ×2 (12:18→13:40)
[2023-12-24 12:49] LABS: Bedside Glucose 118 mg/dL (74-106)
--- NOTE | 2023-12-24 15:23 | CHAPLAIN ---
Type of Pastoral Visit ___ Initial Visit _x__ Follow-up Visit ___ On-call Visit ___ General Patient Visit ___ Spiritual Assessment ___ Family Conference ___ Bereavement ___ Rapid Response ___ Code Blue ___ Other (describe below) Pastoral Care Referral From ___ Patient _x__ Family ___ Nurse ___ Physician ___ Dot Compliance Specialist ___ Strategy Associate ___ Other (describe below) Sacrament/Intervention _x__ Active listening ___ Anointing ___ Orthodoxy ___ Bereavement ___ Communion _x__ Suzette exploration ___ ___ Life review _x__ Prayer ___ Reconciliation ___ Sacrament of Sick _x__ Supportive presence ___ Wedding ___ Other (describe below) Pastoral Comments patient is alone in the room but awake and able to talk with this paratransit operator; this paratransit operator introduces self and role and explains the encounters with this patient while he was intubated; pt acknowledges the goodness of God for his improvement and the care of people to help him; pt identifies self as a [place] and that he appreciates the visit and the spiritual concern; pt is able to speak some of his perspective and his being so good to him; prayer and presence welcomed
[2023-12-24] MEDS: Senna Tablet 1 TABLET PO (17:51)
[2023-12-24] MEDS: oxyCODONE 5 MG Tablet 10 MG PO ×2 (17:52→21:55)
[2023-12-24 18:19] LABS: Bedside Glucose 121 mg/dL (74-106)
--- NOTE | 2023-12-24 18:34 | PN.RENAL_ITS ---
Subjective Subjective Following for CHARLIE. The patient denies chest pain, nausea or vomiting. Dyspnea has improved in the last 24 hours. Appetite is still marginal. Objective Data Objective Data Vital Signs: Vital Signs Temp Pulse Resp BP Pulse Ox O2 Del Method O2 Flow Rate 96.9 F L 70 19 H 134/63 H 96 Nasal Cannula 4 12/24/23 18:00 12/24/23 18:00 12/24/23 18:00 12/24/23 18:00 12/24/23 18:00 12/24/23 18:00 12/24/23 18:00 FiO2 4 12/24/23 13:09 Oxygen Flow Rate (L/min) 4 Oxygen Delivery Method Nasal Cannula Weight: 86.7 kg Body Mass Index (BMI) 26.7 Intake & Output: Intake and Output for Last 24 Hours 12/22/23 12/23/23 12/24/23 23:59 23:59 23:59 Intake Total 378.01 / 384.26 968.70 / 979.88 430.53 / 430.53 Output Total 1300 / 1300 1550 / 1550 625 / 625 Balance -921.99 / -915.74 -581.30 / -570.12 -194.47 / -194.47 Lab / Micro Data 12/24/23 04:20 12/24/23 04:20 Labs: Laboratory Results - last 24 hr 12/23/23 20:20: U Random Total Protein 202.9 H, Urine Creatinine 51.50, P rotein/Creatinin Ratio 3940 H 12/23/23 23:23: POC Glucose 92 12/24/23 04:20: WBC 11.9 H, RBC 2.74 L, Hgb 8.8 L, Hct 27.5 L, MCV 100.4 H, MCH 32.1 H, MCHC 32.0, RDW Std Deviation 55.4 H, RDW Coeff of Khris 15.1 H, Plt Count 228, MPV 10.2, Immature Gran % (Auto) 0.700, Neut % (Auto) 83.6 H, Lymph % (Auto) 6.7 L, [place] % (Auto) 7.6, Eos % (Auto) 0.8, Baso % (Auto) 0.6, Absolute Neuts (auto) 10.0 H, Absolute Lymphs (auto) 0.80 L, Nucleated RBC % 0, Sodium 137, Potassium 3.6, Chloride 110 H, Carbon Dioxide 15.0 L, Anion Gap 13, BUN 63 H, Creatinine 3.64 H, Estim Creat Clear Calc 20.05, Est GFR (MDRD) Af Amer 22 L, Est GFR (MDRD) Non-Af 18 L, BUN/Creatinine Ratio 17.3, Glucose 108 H, Calcium 8.9 12/24/23 05:42: POC Glucose 99 12/24/23 12:27: POC Glucose 118 H 12/24/23 17:57: POC Glucose 121 H Micro: Microbiology 12/23/23 11:25 Wound - Left Foot Gram Stain - Final 12/23/23 11:25 Wound - Left Foot Wound Culture - Preliminary Staphylococcus aureus 12/21/23 16:27 Sputum, Induced/Lukens Gram Stain - Final 12/21/23 16:27 Sputum, Induced/Lukens Respiratory Culture - Final Mixed normal respiratory calista. No Streptococcus pneumoniae, beta-hemolytic Streptococcus or Staphylococcus aureus isolated. 12/23/23 09:02 Sputum, Induced/Lukens Gram Stain - Final 12/23/23 10:45 Nasal Secretion MRSA (PCR) - Final 12/21/23 16:17 Stool Stool Occult Blood (ELISABETH) - Final 12/21/23 14:47 Mucosa - Nose SARS-CoV-2, Influenza & RSV (PCR) - Final Physical Exam Narrative no obvious distress no pallor no icterus no JVD s1s2 no murmurs lungs clear abdomen soft no organomegaly no edema no cyanosis archuleta + Assessment & Plan Assessment/Plan (1) Acute kidney injury: PLAN: Impression/Plan: The patient is a 68-year-old male with past history of type 2 diabetes mellitus, hypertension, COPD, EBONY, PAD, and nephrolithiasis. The patient was admitted to hospital on 12/21/2023 with acute hypoxic respiratory failure. Nephrology is following for CHARLIE. Acute kidney injury. Baseline creatinine was normal but that was about 2 years ago. Patient presented to hospital with serum creatinine of 3.01 mg/dL. Renal function has slowly worsened. Serum creatinine is 3.64 mg/dL today on 12/24/2023, but the patient is not oliguric. He made 1.55 L of urine in the last 24 hours. There is no urgent need for kidney replacement therapy today. Renal ultrasound with echogenic right kidney but no hydronephrosis. I suspect patient has some underlying CKD. Urine protein creatinine ratio is 3.94 g/g. Proteinuria could be due to diabetic kidney disease. However, there is no urinalysis to determine if there is microscopic hematuria. I will order UA. If there is significant hematuria, we may pursue kidney biopsy. Continue to hold lisinopril and hydrochlorothiazide. Recheck renal function, volume status, acid-base and electrolytes again tomorrow.
[2023-12-24] MEDS: Amitriptyline 25 MG Tablet 50 MG GT (21:00)
[2023-12-25] VITALS (22 sets, daily range): BP systolic 103–136; BP diastolic 48–81; PULSE 56–71; RESP 12–21; TEMP 36.1–36.8; O2SAT 91–100; BMI 26.0
[2023-12-25 00:34] LABS: Bedside Glucose 133 mg/dL (74-106)
[2023-12-25] MEDS: oxyCODONE 5 MG Tablet 10 MG PO (03:05)
[2023-12-25 05:02] LABS: Albumin, Serum 2.4 g/dL (3.2-5.0); BUN 67 mg/dL (7-18); Calcium,Total 8.3 mg/dL (8.5-10.1); Chloride 111 mmol/L (98-107); Creatinine, Serum 4.18 mg/dL (0.70-1.30); EST Glomerular Filtration Rate 15 mL/min (>60); Est Glom Filt Rate - Afr Amer 18 mL/min (>60); Estimated Creatinine Clearance 17.46 ml/min; Glucose 114 mg/dL (74-106); Phosphorus 6.5 mg/dL (2.5-4.9); Potassium 3.4 mmol/L (3.5-5.1); Sodium Level 141 mmol/L (136-145)
[2023-12-25 05:29] LABS: Mucous, Urine 0 SEEN /hpf (<or=2+); Red Blood Cells-Urine 0 SEEN /hpf (0-5); Squamous Epithelial Cells - UA 0 SEEN /hpf (0-5); White Blood Cells 0 SEEN /hpf (0-5)
[2023-12-25 05:30] LABS: Color, Urine Yellow (Yellow); Glucose, Dipstick 50 mg/dl (Normal); Ketone-Dipstick 15 mg/dl (Negative); Leukocyte Esterase-Dipstick Negative /ul (Negative); Nitrite-Dipstick Negative (Negative); Occult Blood-Urine 10 /ul (Negative); Protein-Dipstick 500 mg/dl (Negative); Urine Bilirubin Dipstick Negative (Negative); Urine Clarity Clear (Clear); Urine Urobilinogen Normal (Normal)
[2023-12-25] MEDS: Piperacil/Tazobactam 3.375 GM in 0.9% Normal Saline (50mL MB+) 50 ML IV ×2 (05:45→22:43)
[2023-12-25] MEDS: Heparin Injection (Vial) 5,000 UNIT/ML VIAL 5000 UNIT SC ×3 (05:45→22:10)
[2023-12-25 05:46] LABS: Bacteria 1+ /hpf (None Seen)
[2023-12-25 06:08] LABS: Bedside Glucose 106 mg/dL (74-106)
[2023-12-25] MEDS: Aspirin 81 MG TAB.CHEW GT (08:18)
[2023-12-25] MEDS: Pantoprazole Sodium 40 MG in 0.9% Normal Saline (100mL MB+) 100 ML 330 MG IV ×2 (08:18→22:13)
[2023-12-25] MEDS: Sertraline 50 MG Tablet 150 MG GT (08:19)
[2023-12-25] MEDS: Senna Tablet 1 TABLET PO (08:22)
[2023-12-25] MEDS: 0.9% Normal Saline (500mL Bag) 500 ML 999 ML IV ×2 (09:30→13:48)
--- NOTE | 2023-12-25 10:15 | PN.CC_ITS ---
Assessment & Plan Assessment/Plan (1) Acute kidney injury: (2) Acute hypoxemic respiratory failure: PLAN: Plan RECOMMENDATIONS: 1. Supplemental oxygen to maintain saturations at or above 90%. 2. Dietary advancement per speech therapy. 3. Continue antimicrobials to complete 7 days of therapy. 4. Continue to monitor H&H and transfuse if hemoglobin drops below 7 g/dL. 5. Continue PPI therapy as ordered along with appropriate DVT prophylaxis. 6. Encourage incentive spirometer use and mobilize patient as tolerated. 7. Ongoing management of renal insufficiency, per nephrology. 8. The patient is medically stable for transfer out of the intensive care unit. Will sign off. Please call with any questions. IMPRESSIONS: 1. Acute hypercapnic and hypoxemic respiratory failure Unclear precipitating etiology. Potential considerations include CHF exacerbation versus pneumonia, given interval development of fevers and sputum production. The patient does not seem overtly volume overloaded. Therefore, I have opted to hold off on initiating IV diuresis, given underlying renal insufficiency. I would recommend that we continue the patient on antimicrobials to complete 7 days of therapy. Supplemental oxygen can be weaned to maintain saturations at or above 90%. Encourage incentive spirometer use and mobilize patient as tolerated. 2. Encephalopathy Resolved. Most likely metabolic in etiology. In addition, I am concerned that the patient is on a combination of gabapentin and methadone as an outpatient which, coupled with his renal insufficiency, may have contributed his depressed mental state. Therefore, we will plan to minimize sedating medications as feasible. CT head did not reveal any acute intracranial process. 3. Acute versus chronic kidney disease I suspect that his renal insufficiency is likely acute. However, I do not have any laboratory evidence to confirm this assertion, as his last creatinine was around 1.0 approximately 2 years ago. Renal ultrasound only demonstrated possible sequelae of medical renal disease. Nephrology is following to assist with medical management. 4. History of hypertension/coronary artery disease/diabetes mellitus/anxiety/depression/history of pericardial effusion Complicates care, management, recovery and prognosis. Continue supportive care as outlined above. Recommend dietary advancement per speech therapy. This note was generated with [employer] software. It may contain incorrect words, spelling, and punctuation that were not noted in checking the note before signing. Subjective Subjective The patient was seen and examined at the bedside this morning. Events from the last 24 hours have been reviewed. The patient is currently afebrile, hemodynamically stable and maintaining appropriate oxygen saturations on 2 L/min via nasal cannula. No overnight issues were identified by the nursing staff. The patient is currently working with speech therapy. Potassium is low this morning at 3.4 with a bicarbonate of 17 and creatinine of 4.18. Objective Data Objective Data The patient's most recent lab work, culture data and imaging studies have all been personally reviewed. Surface echocardiogram demonstrated moderate concentric LVH with an ejection fraction of 60% and stage I diastolic dysfunction. Pulmonary artery systolic pressure was estimated to be 35 mmHg. A moderate pericardial effusion was noted without evidence of tamponade. COVID, influenza and RSV PCR's were negative. Sputum and blood cultures are pending. Vital Signs: Vital Signs Temp Pulse Resp BP Pulse Ox O2 Del Method O2 Flow Rate 98 F 66 17 134/57 H 98 Nasal Cannula 2 12/25/23 06:00 12/25/23 09:00 12/25/23 09:00 12/25/23 09:00 12/25/23 09:00 12/25/23 09:00 12/25/23 09:00 FiO2 4 12/24/23 13:09 Oxygen Flow Rate (L/min) 2 Oxygen Delivery Method Nasal Cannula Weight: 186 lb 1.6 oz Body Mass Index (BMI) 26.0 Intake & Output: Intake and Output for Last 24 Hours 12/23/23 12/24/23 12/25/23 23:59 23:59 23:59 Intake Total 968.70 / 979.88 430.53 / 430.53 820 / 820 Output Total 1550 / 1550 625 / 775 500 / 500 Balance -581.30 / -570.12 -194.47 / -344.47 320 / 320 Lab / Micro Data Attestation: I reviewed the patient's lab results. 12/24/23 04:20 12/25/23 04:25 Labs: Laboratory Results - last 24 hr 12/24/23 12:27: POC Glucose 118 H 12/24/23 17:57: POC Glucose 121 H 12/25/23 00:14: POC Glucose 133 H 12/25/23 04:25: Sodium 141, Potassium 3.4 L, Chloride 111 H, Carbon Dioxide 17.0 L, BUN 67 H, Creatinine 4.18 H, Estim Creat Clear Calc 17.46, Est GFR (MDRD) Af Amer 18 L, Est GFR (MDRD) Non-Af 15 L, BUN/Creatinine Ratio 16.0, Glucose 114 H, Calcium 8.3 L, Phosphorus 6.5 H, Albumin 2.4 L 12/25/23 05:20: Urine Color Yellow, Urine Clarity Clear, Urine pH 5.0, Ur Specific [place] 1.020, Urine Protein 500 H, Urine Glucose (UA) 50 H, Urine Ketones 15 H, Urine Occult Blood 10 H, Urine Nitrite Negative, Urine Bilirubin Negative, Urine Urobilinogen Normal, Ur Leukocyte Esterase Negative, Urine RBC 0 SEEN, Urine WBC 0 SEEN, Ur Squamous Epith Cells 0 SEEN, Urine Bacteria 1+, Urine Mucus 0 SEEN 12/25/23 05:45: POC Glucose 106 Micro: Microbiology 12/22/23 17:05 Blood Culture (Wb) - Left Wrist Blood Culture - Preliminary No growth in 48 hours. 12/23/23 11:25 Wound - Left Foot Gram Stain - Final 12/23/23 11:25 Wound - Left Foot Wound Culture - Final Meth. resistant Staph. aureus 12/21/23 16:27 Sputum, Induced/Lukens Gram Stain - Final 12/21/23 16:27 Sputum, Induced/Lukens Respiratory Culture - Final Mixed normal respiratory calista. No Streptococcus pneumoniae, beta-hemolytic Streptococcus or Staphylococcus aureus isolated. 12/23/23 09:02 Sputum, Induced/Lukens Gram Stain - Final 12/23/23 10:45 Nasal Secretion MRSA (PCR) - Final 12/21/23 16:17 Stool Stool Occult Blood (ELISABETH) - Final 12/21/23 14:47 Mucosa - Nose SARS-CoV-2, Influenza & RSV (PCR) - Final ABG Data ABG results: ABG 12/22/23 11:01 Specimen Type LUKE Sample Site Not entered VBG pH 7.25 L VBG pO2 31 VBG HCO3 21 L VBG Total CO2 22 L VBG O2 Sat (Calc) 49 L VBG Base Excess -7 L POC Mix VBG pCO2 Pt Tmp 46.7 O2 Delivery Device Not entered Radiography Diagnostic Testing: Radiology Impression Echocardiogram 12/21/23 16:40 Interpretation Summary Normal LV size. Moderate concentric left ventricular hypertrophy. Left ventricular systolic function is normal. The left ventricular ejection fraction is 60 %. Stage 1 diastolic dysfunction. Measures between 1 and 2 cm but posterior to the left ventricle is approximately 2.6 cm Ordering Physician: Elliott Duenas Performed By: Josue Selby RCS Chest X-Ray 12/22/23 08:38 IMPRESSION: Improved aeration of both lungs with residual atelectasis and/or infiltrates of both lung bases more prominent on the left side. Blunting of the left costophrenic angle. Electronically Signed: Ruslan Odell MD at 9:33 EST , Physical Exam Const alert and no apparent distress Constitutional Narrative: Sitting in bedside recliner. General Appearance: cooperative HEENT normocephalic and head/scalp atraumatic Eyes PERRL, EOMs intact bilaterally and conjunctivae normal Neck supple General: trachea midline Chest inspection of chest normal Resp Auscultation: diminished lung sounds; Negative for rales, rhonchi or wheezes Cardio regular rate and regular rhythm GI normal to inspection, nondistended, normoactive bowel sounds Extremity no clubbing, cyanosis or edema Skin no rashes or lesions noted Neuro CN's II-XII intact bilaterally, moves all extremities and no focal motor deficits Psych Mood & Affect: anxious Charges/Coding Visit Charges Inpatient E&M: 67300 Subs Hosp L3
--- NOTE | 2023-12-25 10:58 | PN.RENAL_ITS ---
Subjective Subjective Following for CHARLIE on CKD. Patient denies increasing shortness of breath. He denies chest pain or pressure. There is no nausea or vomiting today. Objective Data Objective Data Vital Signs: Vital Signs Temp Pulse Resp BP Pulse Ox O2 Del Method O2 Flow Rate 98 F 66 17 134/57 H 98 Nasal Cannula 2 12/25/23 06:00 12/25/23 09:00 12/25/23 09:00 12/25/23 09:00 12/25/23 09:00 12/25/23 09:00 12/25/23 09:00 FiO2 4 12/24/23 13:09 Oxygen Flow Rate (L/min) 2 Oxygen Delivery Method Nasal Cannula Weight: 84.414 kg Body Mass Index (BMI) 26.0 Intake & Output: Intake and Output for Last 24 Hours 12/23/23 12/24/23 12/25/23 23:59 23:59 23:59 Intake Total 968.70 / 979.88 430.53 / 430.53 820 / 820 Output Total 1550 / 1550 625 / 775 500 / 500 Balance -581.30 / -570.12 -194.47 / -344.47 320 / 320 Lab / Micro Data 12/24/23 04:20 12/25/23 04:25 Labs: Laboratory Results - last 24 hr 12/24/23 12:27: POC Glucose 118 H 12/24/23 17:57: POC Glucose 121 H 12/25/23 00:14: POC Glucose 133 H 12/25/23 04:25: Sodium 141, Potassium 3.4 L, Chloride 111 H, Carbon Dioxide 17.0 L, BUN 67 H, Creatinine 4.18 H, Estim Creat Clear Calc 17.46, Est GFR (MDRD) Af Amer 18 L, Est GFR (MDRD) Non-Af 15 L, BUN/Creatinine Ratio 16.0, Glucose 114 H, Calcium 8.3 L, Phosphorus 6.5 H, Albumin 2.4 L 12/25/23 05:20: Urine Color Yellow, Urine Clarity Clear, Urine pH 5.0, Ur Specific [place] 1.020, Urine Protein 500 H, Urine Glucose (UA) 50 H, Urine Ketones 15 H, Urine Occult Blood 10 H, Urine Nitrite Negative, Urine Bilirubin Negative, Urine Urobilinogen Normal, Ur Leukocyte Esterase Negative, Urine RBC 0 SEEN, Urine WBC 0 SEEN, Ur Squamous Epith Cells 0 SEEN, Urine Bacteria 1+, Urine Mucus 0 SEEN 12/25/23 05:45: POC Glucose 106 Micro: Microbiology 12/22/23 17:05 Blood Culture (Wb) - Left Wrist Blood Culture - Preliminary No growth in 48 hours. 12/23/23 11:25 Wound - Left Foot Gram Stain - Final 12/23/23 11:25 Wound - Left Foot Wound Culture - Final Meth. resistant Staph. aureus 12/21/23 16:27 Sputum, Induced/Lukens Gram Stain - Final 12/21/23 16:27 Sputum, Induced/Lukens Respiratory Culture - Final Mixed normal respiratory calista. No Streptococcus pneumoniae, beta-hemolytic Streptococcus or Staphylococcus aureus isolated. 12/23/23 09:02 Sputum, Induced/Lukens Gram Stain - Final 12/23/23 10:45 Nasal Secretion MRSA (PCR) - Final 12/21/23 16:17 Stool Stool Occult Blood (ELISABETH) - Final 12/21/23 14:47 Mucosa - Nose SARS-CoV-2, Influenza & RSV (PCR) - Final Physical Exam Narrative no obvious distress no pallor no icterus no JVD s1s2 no murmurs Coarse lung sounds bilaterally abdomen soft no organomegaly 2+ lower extremity edema no cyanosis archuleta + Assessment & Plan Assessment/Plan (1) Acute kidney injury: PLAN: Impression/Plan: The patient is a 68-year-old male with past history of type 2 diabetes mellitus, hypertension, COPD, EBONY, PAD, and nephrolithiasis. The patient was admitted to hospital on 12/21/2023 with acute hypoxic respiratory failure. Nephrology is following for CHARLIE. Acute kidney injury. Baseline creatinine was normal but that was about 2 years ago. Patient presented to hospital with serum creatinine of 3.01 mg/dL. Renal function has slowly worsened. Serum creatinine is 4.18 mg/dL today on 12/25/2023, but the patient is not oliguric. There is no urgent need for kidney replacement therapy today. Renal ultrasound with echogenic right kidney but no hydronephrosis. I suspect patient has some underlying CKD. Urinalysis did not show any microscopic hematuria. Urine protein creatinine ratio is 3.94 g/g. Proteinuria is likely due to diabetic kidney disease. Continue to hold lisinopril and hydrochlorothiazide. Since patient may be intravascularly depleted, will give him a trial of IV fluid today. However, I discussed possible need for hemodialysis with the patient and his family. If renal function continues to worsen despite trial of IV fluid today, we will likely need to proceed with hemodialysis on 12/28/2023 or 12/29/2023. Recheck renal function, volume status, acid-base and electrolytes again daily. Hyperphosphatemia. Phosphorus level is 6.5 mg/dL today on 12/25/2023. Hyperphosphatemia is due to CHARLIE on probable CKD. I am starting patient on sevelamer with meals. Will recheck calcium/phosphorus on 12/28/2023. Nephrology plan was discussed with Dr. Kramer.
--- NOTE | 2023-12-25 11:00 | PCM.PN.HOSP ---
Reason for Visit Reason for Visit: Diagnoses Anemia, unspecified (12/21/23) Heart failure, unspecified (12/21/23) Acute respiratory failure with hypoxia (12/21/23) Acute kidney failure, unspecified (12/21/23) Subjective Subjective Patient was seen and examined today, his creatinine is a little higher than yesterday, I talked to nephrology about his care, they recommended giving him a fluid bolus. Also talked with pulmonary medicine about his care. Potassium was slightly low today. Objective Data Objective Data Vital Signs: Vital Signs Temp Pulse Resp BP Pulse Ox O2 Del Method O2 Flow Rate 98 F 66 17 134/57 H 98 Nasal Cannula 2 12/25/23 06:00 12/25/23 09:00 12/25/23 09:00 12/25/23 09:00 12/25/23 09:00 12/25/23 09:00 12/25/23 09:00 FiO2 4 12/24/23 13:09 Oxygen Flow Rate (L/min) 2 Oxygen Delivery Method Nasal Cannula Weight: 84.414 kg Body Mass Index (BMI) 26.0 Intake & Output: Intake and Output for Last 24 Hours 12/23/23 12/24/23 12/25/23 23:59 23:59 23:59 Intake Total 968.70 / 979.88 430.53 / 430.53 820 / 820 Output Total 1550 / 1550 625 / 775 500 / 500 Balance -581.30 / -570.12 -194.47 / -344.47 320 / 320 Lab / Micro Data 12/24/23 04:20 12/25/23 04:25 Labs: Laboratory Results - last 24 hr 12/24/23 12:27: POC Glucose 118 H 12/24/23 17:57: POC Glucose 121 H 12/25/23 00:14: POC Glucose 133 H 12/25/23 04:25: Sodium 141, Potassium 3.4 L, Chloride 111 H, Carbon Dioxide 17.0 L, BUN 67 H, Creatinine 4.18 H, Estim Creat Clear Calc 17.46, Est GFR (MDRD) Af Amer 18 L, Est GFR (MDRD) Non-Af 15 L, BUN/Creatinine Ratio 16.0, Glucose 114 H, Calcium 8.3 L, Phosphorus 6.5 H, Albumin 2.4 L 12/25/23 05:20: Urine Color Yellow, Urine Clarity Clear, Urine pH 5.0, Ur Specific [place] 1.020, Urine Protein 500 H, Urine Glucose (UA) 50 H, Urine Ketones 15 H, Urine Occult Blood 10 H, Urine Nitrite Negative, Urine Bilirubin Negative, Urine Urobilinogen Normal, Ur Leukocyte Esterase Negative, Urine RBC 0 SEEN, Urine WBC 0 SEEN, Ur Squamous Epith Cells 0 SEEN, Urine Bacteria 1+, Urine Mucus 0 SEEN 12/25/23 05:45: POC Glucose 106 Micro: Microbiology 12/22/23 17:05 Blood Culture (Wb) - Left Wrist Blood Culture - Preliminary No growth in 48 hours. 12/23/23 11:25 Wound - Left Foot Gram Stain - Final 12/23/23 11:25 Wound - Left Foot Wound Culture - Final Meth. resistant Staph. aureus 12/21/23 16:27 Sputum, Induced/Lukens Gram Stain - Final 12/21/23 16:27 Sputum, Induced/Lukens Respiratory Culture - Final Mixed normal respiratory calista. No Streptococcus pneumoniae, beta-hemolytic Streptococcus or Staphylococcus aureus isolated. 12/23/23 09:02 Sputum, Induced/Lukens Gram Stain - Final 12/23/23 10:45 Nasal Secretion MRSA (PCR) - Final 12/21/23 16:17 Stool Stool Occult Blood (ELISABETH) - Final 12/21/23 14:47 Mucosa - Nose SARS-CoV-2, Influenza & RSV (PCR) - Final Physical Exam Narrative Constitutional Narrative: Patient is alert and appropriate, patient states he wants to eat General Appearance: well kempt and well developed HEENT normocephalic, head/scalp atraumatic and moist oral mucous membranes Eyes PERRL, EOMs intact bilaterally and conjunctivae normal Neck supple, no JVD and thyroid normal General: trachea midline Resp clear to auscultation bilaterally Auscultation: Negative for rales, rhonchi or wheezes Cardio regular rate, regular rhythm, S1 normal heart sound, S2 normal heart sound, no murmurs, no rub and no gallops GI normal to inspection, nondistended, normoactive bowel sounds and non-distended Extremity Extremity Narrative: There is generalized edema of the lower legs with blister formation on the left leg over the anterior mederos area. Skin Skin Narrative: There are open areas on the lateral malleolus bilaterally, these appear to be approximately 4 cm in diameter and are round, these appear to be full skin thickness Neuro Neuro Narrative: Patient is alert and appropriate Psych Psych Narrative: Patient is alert and appropriate Assessment & Plan Assessment/Plan (1) Acute hypoxemic respiratory failure: (2) Acute kidney injury: (3) Acute exacerbation of CHF (congestive heart failure): PLAN: Plan 1. Acute hypoxic respiratory failure-etiology unclear at this point, may have resulted from acute exacerbation of chronic CHF-patient was taken off diuretics by critical care due to his elevated creatinine, patient has had no labs drawn at his PCPs office since 2019 (I called their office this morning), his last office visit was approximately a year ago, I have asked if they could forward it to ICU along with his last EKG. Pulmonary states they are doing a weaning trial on him this morning #2 acute kidney injury, most likely on a backdrop of chronic kidney disease-patient's baseline kidney functions are unknown at this time, his last BMP appears to be in 2021. Patient's creatinine has risen slightly over his hospitalization, again it is unknown what the patient's baseline creatinine is. Creatinine will be monitored. Patient will be given an IV fluid bolus today, leasing director participating in his care #3 Acute on chronic diastolic congestive heart failure-patient is currently not on any diuretics due to his renal function, last chest x-ray did not show evidence of congestive heart failure #4 chronic pain syndrome-patient takes methadone chronically at home according to the , she thinks he is on 10 mg twice a day, he also takes gabapentin 600 mg 3 times a day, he had been off this medication for a while, I will wait until tomorrow to consider resuming his oral narcotics. #5 anemia-etiology unclear, patient's ferritin level is normal which could indicate this is anemia of chronic disease such as an anemia of renal failure. Labs will be monitored, patient's hemoglobin today was 8.8 #6 essential hypertension-patient's blood pressure will be monitored #7 history of type 2 diabetes-patient's blood sugars will be monitored #8 chronic obstructive pulmonary disease-complicates care, management, recovery, and prognosis #9 stage III pressure injuries lateral malleolus bilaterally-wound care is seeing the patient Patient appears stable for transfer to PCU at this time Total clinical time spent by myself addressing patient's medical issues, reviewing all of his data, and collaborating with patient's care team: 35 minutes
[2023-12-25] MEDS: Metoprolol Tartrate 50 MG Tablet GT (11:08)
[2023-12-25 11:32] LABS: Bedside Glucose 139 mg/dL (74-106)
--- NOTE | 2023-12-25 11:56 | ST.MBS ---
Modified Barium Swallow Patient Information Study Date: 12/25/23 Study Time: 12:30 Direct Billable Minutes: 120 Total Minutes procedure & reportin Diagnosis: I50.9 - Heart failure Referring Physician: Narendra Kramer Reason for Referral: Objectively assess swallow function, assess risk for aspiration, and determine recommendations for least restrictive diet textures and compensatory strategies to improve safety of swallow.? Medical History: The patient presented to the [facility] ED on 12/21/2023 with altered mental status and worsening shortness of breath. He had progressive weakness, SOB, and difficulty lying flat over the past few weeks. He was hypoxic and somnolent on arrival. Chest X-ray showed cardiomegaly and probable small left pleural effusion. Given concerns for heart failure exacerbation and volume overload, he was placed on BiPAP but became obtunded, requiring intubation. He was transferred to the ICU and extubated on 12/24/2023. The patient failed the RN dysphagia screener and was referred for a bedside swallow evaluation with POWERHOUSE ELECTRICIAN APPRENTICE. Due to coughing with liquids larger than a teaspoon, a MBSS is recommended to assess aspiration risk and determine appropriate strategies. PMH: Acute respiratory failure, adjustment disorder, AMS, anxiety, coronary artery calcification, cardiomegaly, CKD, CHF, COPD, chronic opioid use, encephalopathy, hypertension, sepsis history, nicotine and opioid dependence, EBONY, pericardial effusion (June 2020), pleural effusion, type 2 diabetes. See EMR for full details. Mental Status: WNL Respiratory Status: Oxygenating on Room Air Penetration-Aspiration Scale Penetration-Aspiration Scale: OBJECTIVE ASSESSMENT OF SWALLOW FUNCTION (QUANTITATIVE ? PER TRIAL): PENETRATION / ASPIRATION SCALE (FRANKLIN): 1 = does not enter airway 2 = enters airway/above vocal folds/ejected 3 = enters airway/above vocal folds/not ejected 4 = enters airway/contacts vocal folds/ejected 5 = enters airway/contacts vocal folds/not ejected 6 = enters airway/below vocal folds/ejected 7 = enters airway/below vocal folds/not ejected despite effort 8 = enters airway/below vocal folds/no effort VIDEOFLOROSCOPIC SCALE SCORE (FRANKLIN): Grade I = aspiration of material that has penetrated into the laryngeal vestibule, intact cough reflex Grade II = aspiration < 10 % of the bolus, intact cough reflex Grade III = aspiration of < 10 % of the bolus, reduced cough reflex or aspiration of > 10 % of the bolus, intact cough reflex Grade IV = aspiration of > 10 % of the bolus, reduced cough reflex Penetration-Aspiration Scale Score Thin Liquid via teaspoon: Result: 1= does not enter airway Thin Liquid via teaspoon Effortful swallow: Result: 4= enters airway/contacts vocal folds/ejected Thin Liquid via teaspoon Effortful swallow Trial 2: Result: 1= does not enter airway Thin Liquid via single sip: straw: Result: 5= enters airways/contacts vocal folds/not ejected [place] Thick Liquid via large single sip: cup: Result: 5= enters airways/contacts vocal folds/not ejected [place] Thick Liquid via small single sip: cup: Result: 5= enters airways/contacts vocal folds/not ejected [place] Thick Liquid via small single sip: cup: Result: 5= enters airways/contacts vocal folds/not ejected Pudding: Result: 1= does not enter airway Thin Liquid Chin tuck: Result: 5= enters airways/contacts vocal folds/not ejected Thin Liquid via teaspoon Effortful swallow Trial 3: Result: 5= enters airways/contacts vocal folds/not ejected Thin Liquid via small single sip: cup: Result: 8= enters airway/below vocal folds/no effort Oral Phase Labial Seal: No Labial Escape Tongue Control During Bolus Hold: Posterior escape of greater than half of bolus Bolus Transport/Lingual Motion: Delayed initiation of tongue motion Oral Residue: Residue collection on oral structures Pharyngeal Phase Initiation of Pharyngeal Swallow: Bolus head in pyriforms Soft Palate Elevation: No bolus between soft palate and pharyngeal wall Laryngeal Elevation: Partial superior movement thyroid cart/partial apprx aryt-epig petiole Anterior Hyoid Excursion: Complete anterior movement Epiglottic Movement: Partial inversion Laryngeal Vestibule Closure at Height of Swallow: Incomplete; narrow column of air/contrast in laryngeal vestibule Pharyngeal Stripping Wave: Present - diminished Pharyngoesophageal Segment Opening: Parital distension and partial duration; parital obstruction of flow Tongue Base Retraction: Narrow column of contrast between tongue base & post. pharyngeal wall Pharyngeal Residue: Collection of residue within or on pharyngeal structures Esophageal Phase Esophageal Clearance: Esophageal retention w/ retrograde flow below pharyngoesophageal seg. Diagnosis/Impression Diagnosis: oropharyngeal dysphagia R13.12 Impression: The patient presents with significant oropharyngeal dysphagia, characterized by poor bolus control and premature spillage into the pyriform sinuses, placing the patient at risk for preprandial aspiration. Despite cueing the patient to hold the bolus (to reduce premature spillage) and perform an effortful swallow, aspiration risk was not reduced. A bulging appearance of the posterior pharyngeal wall at the level of the medial/inferior pharyngeal constrictors was observed, impacting the pharyngeal phase of swallowing. Decreased airway closure was noted, with penetration to the vocal cords that the patient could not eject, either independently or with a cued cough, across all consistencies (thin, nectar-thick, honey-thick liquids). Riley aspiration occurred with thin liquids by cup. POWERHOUSE ELECTRICIAN APPRENTICE suspects the bulging appearance of the posterior pharyngeal wall is contributing to persistent penetration and aspiration. Postprandial aspiration was observed, with consistencies remaining on the vocal cords and unable to be cleared. An ENT consult is recommended for further assessment of the anatomy. Additionally, the patient demonstrated poor esophageal clearance with retention of pudding in the mid-esophagus following one bite. Liquid wash was somewhat effective. A GI consult is also recommended. Recommendations Diet: NPO Comment: [place] Free Water Protocol Recommend Repeat Modified Barium Swallow: Yes Need for Skilled Speech Therapy Services: Yes Recommended Referrals: GI Consult and ENT Consult Education Completed: 1. Described result of evaluation. and 2. Pt understands evaluation & agrees with goals and treatment plan. Status Active ST Patient: Active Contact Information [facility] Speech Therapy:: Kamini Urias M.A. [facility]ICIAN APPRENTICE Speech-Language Pathologist [facility] [address] [place] [address] [email or web address] [phone]
--- NOTE | 2023-12-25 12:06 | CASEMGMT ---
Addendum entered by Roopa Fishman 12/25/23 13:08: Social Work TCU is able to accept pt. Precert will be started when pt is medically ready. SW updated pt. Plan: TCU, when medically ready and precert has been obtained. KULWANT Todd Original Note: Social Work SW met with pt, pts and pt's brother to discuss discharge plan. Pt is in agreement that he cannot return home at this time and that short term rehab will be needed. A list of SNF providers including quality and resource use data and consistent with the patient?s preferred geographic region, medical needs, and insurance network were provided from the [employer] Guide. Pt preferred provider is [facility]. Referral made and SW will await determination of acceptance. KULWANT Todd
--- NOTE | 2023-12-25 12:30 | RAD_ITS ---
EXAM: FL SWALLOWING FUNCTION WITH VIDEO/CINE CLINICAL INDICATION: Assess risk for aspiration w/ liquids TECHNIQUE: Fluoroscopy of the oral cavity through upper esophagus with video/cine recording. The study was performed in conjunction with a speech pathologist. Various consistencies of liquid and food were administered orally by the speech pathologist. Fluoroscopic guidance was provided by a physician. COMPARISON: No relevant prior studies available. FINDINGS: ORAL PHASE: Unremarkable. Normal bolus transfer. No premature spillage. PHARYNGEAL PHASE: Unremarkable. No residual contrast pooling. No penetration or aspiration. CERVICAL ESOPHAGEAL PHASE: Unremarkable. Normal upper esophageal sphincter function. RAD/Swallowing Function w/Video IMPRESSION: No penetration or aspiration. Please see the speech pathologist''s report for additional information. Electronically Signed: Obdulio Quijano MD at 14:16 EST Reading Location ID and State: [facility] / [place] , Service support ,
[2023-12-25] MEDS: SEVELAMER CARBONATE 800 MG TABLET PO (13:02)
[2023-12-25] MEDS: 0.9% Normal Saline (1000mL) 1,000 ML 75 ML IV (13:48)
--- NOTE | 2023-12-25 14:22 | PCM.HOSP.N ---
Hospitalist Note Had a conversation with speech therapy today, they noted that the patient has a posterior pharyngeal mass, I notified pulmonary medicine and they feel that ENT needs to be consulted, I talked with Dr. Gregorio from ENT, he will see the patient tomorrow he would like a CT of the soft tissue of the neck ordered, nursing states that the patient is complaining of some left-sided weakness today so I have elected to perform an MRI of the brain without contrast. Patient has previous history of stroke in the past on the right side and also on the left side. Patient will be n.p.o. except for meds crushed in applesauce.
[2023-12-25] MEDS: Insulin Lispro 100 UNIT/ML INSULN.PEN SC (16:36)
[2023-12-25 16:54] LABS: Bedside Glucose 181 mg/dL (74-106)
[2023-12-25] MEDS: LORazepam 1 MG Tablet PO (18:03)
--- NOTE | 2023-12-25 22:07 | PCM.HOSP.N ---
Hospitalist Note Patient lethargic since ativan administration. Noted significant renal disease concurrently. Does have COPD/EBONY. Will obtain ABG and if needed will place BIPAP. Patient was recently extubated and transitioned from the ICU to the PCU.
[2023-12-25] MEDS: 0.9% Saline Lock 10 ML Syringe IV (22:18)
[2023-12-25 22:37] LABS: Bedside Glucose 163 mg/dL (74-106)
[2023-12-25 22:57] LABS: Allen Test Positive; Base Excess -12 mmol/L (-2 to +2); Bicarbonate 16.7 mmol/L (22-26); Blood Gas Specimen Type ART; Mode Not entered; O2 Delivery Device Cannula; PO2 78 mmHG (75-100); SITE L Radial; SO2 92 % (95-99); Total Carbon Dioxide 18 mmol/L; pCO2 45.7 mmHg (35-45); pH 7.17 (7.35-7.45)
[2023-12-25] MEDS: Sodium Bicarbonate 50 MEQ in Dextrose 5%-Water (1000mL Bag) 1,000 ML 100 MEQ IV (23:33)
[2023-12-26] VITALS (21 sets, daily range): BP systolic 111–166; BP diastolic 59–80; PULSE 54–76; RESP 12–33; TEMP 36.4–36.6; O2SAT 93–100; BMI 27.1
[2023-12-26 01:55] LABS: Base Excess -9 mmol/L (-2 to +2); Blood Gas Specimen Type ART; Mode Not entered; O2 Delivery Device BiPAP; PEEP 6; PO2 102 mmHG (75-100); RR 12; SITE L Radial; SO2 97 % (95-99); Total Carbon Dioxide 19 mmol/L; pCO2 41.4 mmHg (35-45); pH 7.25 (7.35-7.45)
[2023-12-26] MEDS: 0.9% Normal Saline (1000mL) 1,000 ML 75 ML IV (04:37)
[2023-12-26] MEDS: Heparin Injection (Vial) 5,000 UNIT/ML VIAL 5000 UNIT SC ×3 (06:07→20:33)
[2023-12-26 06:22] LABS: Bedside Glucose 176 mg/dL (74-106)
[2023-12-26 06:28] LABS: Absolute Lymphocyte Count 0.79 X10^3/uL (0.83-4.51); Absolute Neutrophil Count 5.9 X10^3/uL (2.0-7.7); Basophil# 0.07 X10^3/uL; Basophil% 0.9 % (0-1); Eosinophil# 0.36 X10^3/uL; Eosinophils% 4.6 % (0-5); Hematocrit 24.5 % (40-54); Lymphocyte # 0.79 X10^3/ul (0.83-4.51); Mean Corp Hgb Conc 32.7 g/dL (32-36); Mean Corpuscular Hgb 32.9 pg (27.0-32.0); Mean Corpuscular Volume 100.8 fL (80-94); Mean Platelet Vol. 10.5 fl (6.2-12.0); Monocyte% 8.9 % (0-10); NRBC Flagged by Analyzer 0 % (0-5); Neutrophil # 5.92 X10^3/uL (2.7-7.7); Neutrophil % 75.1 % (47-70); Platelet Count 232 K/mm3 (150-450); RBC Distribution Width CV 15.3 % (11.6-14.6); RBC Distribution Width SD 56.4 fl (35.1-43.9); Red Blood Count 2.43 M/mm3 (4.6-6.2); White Blood Count 7.9 K/mm3 (4.4-11.0)
[2023-12-26 06:58] LABS: Albumin, Serum 2.3 g/dL (3.2-5.0); BUN 63 mg/dL (7-18); BUN/Creat Ratio 15.1 RATIO (10-20); Calcium,Total 8.4 mg/dL (8.5-10.1); Chloride 113 mmol/L (98-107); Creatinine, Serum 4.16 mg/dL (0.70-1.30); EST Glomerular Filtration Rate 15 mL/min (>60); Est Glom Filt Rate - Afr Amer 18 mL/min (>60); Estimated Creatinine Clearance 18.98 ml/min; Glucose 183 mg/dL (74-106); Phosphorus 6.2 mg/dL (2.5-4.9); Potassium 3.2 mmol/L (3.5-5.1); Sodium Level 141 mmol/L (136-145)
--- NOTE | 2023-12-26 09:06 | CT_ITS ---
INDICATION: pharyngeal mass EXAMINATION: CT NECK - CT Soft Tissue Neck W/O Contrast Injection TECHNIQUE: Multiple axial images were obtained of the neck. The protocol utilizes one or more of the following dose reduction techniques: automated exposure control, adjustment of mA and/or kV according to patient size,and/or use of iterative reconstruction technique. IV Contrast dosage and agent: None. RADIATION DOSAGE (If Supplied By Facility): CTDIvol = ( 18.46 ) mGy, DLP = ( 1033.02 ) mGycm COMPARISON: No relevant prior comparison study available FINDINGS: The examination is limited without contrast and due to significant motion artifacts. NASOPHARYNX: Unremarkable. SUPRAHYOID NECK: Unremarkable oropharynx, oral cavity, parapharyngeal space, and retropharyngeal space. INFRAHYOID NECK: Unremarkable larynx, hypopharynx, and supraglottis. THYROID: No focal lesion is definitely identified. SALIVARY GLANDS: Unremarkable. LYMPH NODES: No cervical or supraclavicular lymphadenopathy. VASCULAR STRUCTURES: Atherosclerotic calcifications of the carotid arteries bilaterally. VISUALIZED PORTIONS OF THE ORBITS, PARANASAL SINUSES, MASTOID AIR CELLS AND SKULL BASE: Mucosal thickening of the left maxillary sinus. BONES: Unremarkable. THORACIC INLET: Clear lung apices. CT/Soft Tissue Neck without Contr IMPRESSION: 1. Unremarkable airway. 2. No mass lesion is definitely identified. Electronically Signed: Chan Horowitz MD at 12:07 [facility] ,
--- NOTE | 2023-12-26 09:16 | CT_ITS ---
INDICATION: mental status change EXAMINATION: CT BRAIN - CT Head or Brain W/O Contrast Injection TECHNIQUE: Multiple axial images were obtained of the head without intravenous contrast. The protocol utilizes one or more of the following dose reduction techniques: automated exposure control, adjustment of mA and/or kV according to patient size,and/or use of iterative reconstruction technique. IV Contrast dosage and agent: None. RADIATION DOSAGE (If Supplied By Facility): CTDIvol = ( 44.99 ) mGy, DLP = ( 846.73 ) mGycm COMPARISON: Prior study dated: 12/21/2023 FINDINGS: BRAIN PARENCHYMA: No intra- or extra-axial hemorrhage. No evidence of acute infarct. No intracranial mass or mass effect. There is preservation of the [place]/white matter interface. Periventricular deep white matter changes likely due to chronic microvascular disease. Posterior fossa structures are unremarkable. Atherosclerotic calcifications of the cavernous internal carotid arteries. CSF SPACES: Moderate diffuse atrophy. No hydrocephalus. Basal cisterns are patent. CALVARIUM, SKULL BASE, PARANASAL SINUSES AND MASTOID AIR CELLS: Mucosal thickening of the left maxillary sinus. No discrete lytic or blastic abnormalities. ORBITS: Both globes, extraocular muscles, optic nerves and retrobulbar fat appear unremarkable. CT/Brain/Head without Contrast IMPRESSION: 1. No acute intracranial process. 2. Chronic involutional changes of the brain. Electronically Signed: Chan Horowitz MD at 11:47 EST ,
[2023-12-26] MEDS: Pantoprazole Sodium 40 MG in 0.9% Normal Saline (100mL MB+) 100 ML 330 MG IV ×2 (11:28→20:38)
[2023-12-26] MEDS: Sodium Bicarbonate 50 MEQ in Dextrose 5%-Water (1000mL Bag) 1,000 ML 100 MEQ IV ×2 (11:46→22:22)
[2023-12-26] MEDS: Piperacil/Tazobactam 3.375 GM in 0.9% Normal Saline (50mL MB+) 50 ML IV ×2 (11:52→21:11)
[2023-12-26] MEDS: 0.9% Saline Lock 10 ML Syringe IV ×4 (11:55→20:07)
--- NOTE | 2023-12-26 12:17 | PCM.PN.BLA ---
Progress Note Asked to see the patient at the request of Dr. Osborn for a possible throat mass HPI: 68 yo white male presented with respiratory failure. He was intubated and eventually extubated. Subsequent speech therapy evaluation suggested a possible posterior pharyngeal wall mass. In speaking with the family, prior to admission, he was not having any throat issues. However, the reports that he was coughing with liquids on occassion. PE: awake, not alert, could not answer questions but did open his mouth for me. AVSS nose-+nasal canula M/OP- no masses. +puruelnt post nasal drainage on the posterior oropharyngeal wall CT neck- No masses. + left maxillary sinusitis A: No oropharyngeal abnormality Acute left maxillary sinusitis P: continue speech therapy Continue IV antibiotics. He will need discharged on abx and will need follow up with me as an outpatient.
[2023-12-26 12:25] LABS: Bedside Glucose 157 mg/dL (74-106)
[2023-12-26] MEDS: Insulin Lispro 100 UNIT/ML INSULN.PEN SC (15:54)
[2023-12-26 16:05] LABS: Bedside Glucose 188 mg/dL (74-106)
--- NOTE | 2023-12-26 17:08 | PN.HOSP_ITS ---
Reason for Visit Reason for Visit: Diagnoses Anemia, unspecified (12/21/23) Heart failure, unspecified (12/21/23) Acute respiratory failure with hypoxia (12/21/23) Acute kidney failure, unspecified (12/21/23) Subjective Subjective Patient was seen and examined today, I ordered a CT of the soft tissue of the neck and a CT of the brain today both of which were unremarkable for acute pathology, there is no evidence of a pharyngeal mass noted on the neck CT, there was only involutional changes of the brain noted on the brain CT. Patient was acidotic yesterday and a bicarb drip was added, patient was also placed on BiPAP but I see no need for the BiPAP as the patient's pCO2 level was not highly elevated. Patient is currently on 2 L of oxygen via nasal cannula, I talked briefly with nephrology about his care Objective Data Objective Data Vital Signs: Vital Signs Temp Pulse Resp BP Pulse Ox O2 Del Method O2 Flow Rate 97.5 F L 64 20 H 139/62 H 94 Nasal Cannula 2 12/26/23 09:00 12/26/23 13:00 12/26/23 13:00 12/26/23 13:00 12/26/23 13:00 12/26/23 13:00 12/26/23 13:00 FiO2 25 12/26/23 09:37 Oxygen Flow Rate (L/min) 2 Oxygen Delivery Method Nasal Cannula Weight: 87.9 kg Body Mass Index (BMI) 27.1 Intake & Output: Intake and Output for Last 24 Hours 12/24/23 12/25/23 12/26/23 23:59 23:59 23:59 Intake Total 430.53 / 430.53 1430 / 1430 2774.17 / 2774.17 Output Total 625 / 775 500 / 500 450 / 450 Balance -194.47 / -344.47 930 / 930 2324.17 / 2324.17 Lab / Micro Data 12/26/23 05:20 12/26/23 05:20 Labs: Laboratory Results - last 24 hr 12/25/23 22:11: POC Glucose 163 H 12/25/23 23:35: Ammonia 31.0 12/26/23 05:20: WBC 7.9, RBC 2.43 L, Hgb 8.0 L, Hct 24.5 L, MCV 100.8 H, MCH 32.9 H, MCHC 32.7, RDW Std Deviation 56.4 H, RDW Coeff of Khris 15.3 H, Plt Count 232, MPV 10.5, Immature Gran % (Auto) 0.500, Neut % (Auto) 75.1 H, Lymph % (Auto) 10.0 L, [place] % (Auto) 8.9, Eos % (Auto) 4.6, Baso % (Auto) 0.9, Absolute Neuts (auto) 5.9, Absolute Lymphs (auto) 0.79 L, Nucleated RBC % 0, Sodium 141, Potassium 3.2 L, Chloride 113 H, Carbon Dioxide 19.0 L, BUN 63 H, Creatinine 4.16 H, Estim Creat Clear Calc 18.98, Est GFR (MDRD) Af Amer 18 L, Est GFR (MDRD) Non-Af 15 L, BUN/Creatinine Ratio 15.1, Glucose 183 H, Calcium 8.4 L, P hosphorus 6.2 H, Albumin 2.3 L 12/26/23 06:04: POC Glucose 176 H 12/26/23 11:54: POC Glucose 157 H 12/26/23 15:47: POC Glucose 188 H Micro: Microbiology 12/23/23 09:02 Sputum, Induced/Lukens Gram Stain - Final 12/23/23 09:02 Sputum, Induced/Lukens Respiratory Culture - Final 12/22/23 17:05 Blood Culture (Wb) - Left Wrist Blood Culture - Preliminary No growth in 48 hours. 12/23/23 11:25 Wound - Left Foot Gram Stain - Final 12/23/23 11:25 Wound - Left Foot Wound Culture - Final Meth. resistant Staph. aureus 12/21/23 16:27 Sputum, Induced/Lukens Gram Stain - Final 12/21/23 16:27 Sputum, Induced/Lukens Respiratory Culture - Final Mixed normal respiratory calista. No Streptococcus pneumoniae, beta-hemolytic Streptococcus or Staphylococcus aureus isolated. 12/23/23 10:45 Nasal Secretion MRSA (PCR) - Final 12/21/23 16:17 Stool Stool Occult Blood (ELISABETH) - Final 12/21/23 14:47 Mucosa - Nose SARS-CoV-2, Influenza & RSV (PCR) - Final ABG Data ABG results: ABG 12/25/23 12/26/23 22:53 01:51 Specimen Type ART ART Sample Site L Radial L Radial pH 7.17 L* 7.25 L Bicarbonate Actual 16.7 L 18.0 L Total CO2 18 19 Base Excess -12 L -9 L O2 Saturation 92 L 97 O2 % 2.0 30.0 ABG pCO2 45.7 H 41.4 ABG pO2 78 102 H Bradley Test Positive N/A Respiration Rate 12 O2 Delivery Device Cannula BiPAP Vent Mode Not entered Not entered POC PEEP 6 Crit Call To/Read Back Yes Radiography Diagnostic Testing: Radiology Impression Soft Tissue Neck CT 12/26/23 09:06 IMPRESSION: 1. Unremarkable airway. 2. No mass lesion is definitely identified. Electronically Signed: Chan Horowitz MD at 12:07 EST , Brain CT 12/26/23 09:16 IMPRESSION: 1. No acute intracranial process. 2. Chronic involutional changes of the brain. Electronically Signed: Chan Horowitz MD at 11:47 EST , Physical Exam Narrative Constitutional Narrative: Patient is alert and appropriate General Appearance: well kempt and well developed HEENT normocephalic, head/scalp atraumatic and moist oral mucous membranes Eyes PERRL, EOMs intact bilaterally and conjunctivae normal Neck supple, no JVD and thyroid normal General: trachea midline Resp clear to auscultation bilaterally Auscultation: Negative for rales, rhonchi or wheezes Cardio regular rate, regular rhythm, S1 normal heart sound, S2 normal heart sound, no murmurs, no rub and no gallops GI normal to inspection, nondistended, normoactive bowel sounds and non-distended Extremity Extremity Narrative: There is generalized edema of the lower legs with blister formation on the left leg over the anterior mederos area. Skin Skin Narrative: There are bandages present on the patient's ankle wounds bilaterally Neuro Neuro Narrative: Patient is alert and appropriate Psych Psych Narrative: Patient is alert and appropriate Assessment & Plan Assessment/Plan (1) Acute kidney injury: (2) Acute hypoxemic respiratory failure: (3) Acute exacerbation of CHF (congestive heart failure): PLAN: Plan 1. Acute hypoxic respiratory failure-etiology unclear at this point, may have resulted from acute exacerbation of chronic CHF-patient is now on low-flow nasal cannula oxygen #2 acute kidney injury, most likely on a backdrop of chronic kidney disease- patient's baseline kidney functions are unknown at this time, his last BMP appears to be in 2021. Patient's creatinine has risen slightly over his hospitalization, again it is unknown what the patient's baseline creatinine is. Creatinine will be monitored. Nephrology is participating in his care, patient is currently on a bicarb drip, I have elected to stop his other fluid administration. #3 Acute on chronic diastolic congestive heart failure-patient is currently not on any diuretics due to his renal function, last chest x-ray did not show evidence of congestive heart failure #4 chronic pain syndrome-patient takes methadone chronically at home according to the , she thinks he is on 10 mg twice a day, he also takes gabapentin 600 mg 3 times a day, he had been off this medication for a while, I will wait until tomorrow to consider resuming his oral narcotics. #5 anemia-etiology unclear, patient's ferritin level is normal which could indicate this is anemia of chronic disease such as an anemia of renal failure. 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 Sotomayor) and he does not feel the patient has a pharyngeal mass. Speech therapy will continue to see the patient Total clinical time spent by myself addressing patient's medical issues, reviewing all of his data, and collaborating with patient's care team: 35 minutes Charges/Coding Visit Charges Inpatient E&M: 40469 Subs Hosp L2
[2023-12-26] MEDS: hydrALAZINE 20 MG/ML Vial 10 MG IV (18:31)
[2023-12-26] MEDS: oxyCODONE 5 MG Tablet 10 MG PO ×2 (18:36→23:13)
[2023-12-26] MEDS: Metoprolol Tartrate 50 MG Tablet PO (20:33)
[2023-12-26] MEDS: Amitriptyline 25 MG Tablet 50 MG PO (20:33)
[2023-12-26 22:02] LABS: Bedside Glucose 165 mg/dL (74-106)
[2023-12-26] MEDS: Acetaminophen 650 MG/20 ML UDC PO (22:22)
[2023-12-27] VITALS (22 sets, daily range): BP systolic 122–189; BP diastolic 68–90; PULSE 54–74; RESP 18–22; TEMP 36.4–37.1; O2SAT 87–95
--- NOTE | 2023-12-27 00:28 | PCM.HOSP.N ---
Hospitalist Note Patient with mild crackles, will decrease bicarb drip and place specific stop parameters with planned daytime reassessment and fluids determination following repeat am labs/evaluation.
[2023-12-27] MEDS: oxyCODONE 5 MG Tablet 10 MG PO ×4 (04:53→20:37)
[2023-12-27 05:46] LABS: Absolute Lymphocyte Count 0.87 X10^3/uL (0.83-4.51); Absolute Neutrophil Count 5.7 X10^3/uL (2.0-7.7); Basophil# 0.08 X10^3/uL; Eosinophil# 0.38 X10^3/uL; Eosinophils% 4.8 % (0-5); Hematocrit 27.6 % (40-54); Hemoglobin 8.8 g/dL (13.0-16.5); Lymphocyte # 0.87 X10^3/ul (0.83-4.51); Lymphocyte % 11.1 % (19-41); Mean Corp Hgb Conc 31.9 g/dL (32-36); Mean Corpuscular Hgb 32.1 pg (27.0-32.0); Mean Corpuscular Volume 100.7 fL (80-94); Mean Platelet Vol. 10.4 fl (6.2-12.0); Monocyte# 0.76 X10^3/uL; Monocyte% 9.7 % (0-10); NRBC Flagged by Analyzer 0 % (0-5); Neutrophil # 5.72 X10^3/uL (2.7-7.7); Neutrophil % 72.9 % (47-70); Platelet Count 244 K/mm3 (150-450); RBC Distribution Width CV 15.7 % (11.6-14.6); RBC Distribution Width SD 58.4 fl (35.1-43.9); Red Blood Count 2.74 M/mm3 (4.6-6.2); White Blood Count 7.9 K/mm3 (4.4-11.0)
[2023-12-27] MEDS: Heparin Injection (Vial) 5,000 UNIT/ML VIAL 5000 UNIT SC ×3 (06:00→20:37)
[2023-12-27 06:08] LABS: Anion Gap 9 (5-15); BUN 54 mg/dL (7-18); BUN/Creat Ratio 12.9 RATIO (10-20); Calcium,Total 8.3 mg/dL (8.5-10.1); Chloride 110 mmol/L (98-107); Creatinine, Serum 4.18 mg/dL (0.70-1.30); EST Glomerular Filtration Rate 15 mL/min (>60); Est Glom Filt Rate - Afr Amer 18 mL/min (>60); Estimated Creatinine Clearance 18.89 ml/min; Glucose 174 mg/dL (74-106); Sodium Level 139 mmol/L (136-145)
[2023-12-27 06:20] LABS: Bedside Glucose 167 mg/dL (74-106)
[2023-12-27] MEDS: Aspirin 81 MG TAB.CHEW PO (10:02)
[2023-12-27] MEDS: Sertraline 50 MG Tablet 150 MG PO (10:02)
[2023-12-27] MEDS: Metoprolol Tartrate 50 MG Tablet PO ×2 (10:02→20:36)
[2023-12-27] MEDS: Senna Tablet 1 TABLET PO (10:03)
[2023-12-27] MEDS: Pantoprazole Sodium 40 MG in 0.9% Normal Saline (100mL MB+) 100 ML 330 MG IV ×2 (10:15→20:37)
[2023-12-27] MEDS: 0.9% Saline Lock 10 ML Syringe IV ×2 (10:18→17:31)
[2023-12-27] MEDS: Piperacil/Tazobactam 3.375 GM in 0.9% Normal Saline (50mL MB+) 50 ML IV ×2 (10:18→22:14)
[2023-12-27] MEDS: Potassium Chloride 10mEq/100mL 10 MEQ/100 ML IV.SOLN. 100 MEQ IV BOLUS ×2 (12:40→14:12)
[2023-12-27 13:27] LABS: Bedside Glucose 144 mg/dL (74-106)
--- NOTE | 2023-12-27 13:40 | PCM.PN.HOSP ---
Reason for Visit Reason for Visit: Diagnoses Anemia, unspecified (12/21/23) Heart failure, unspecified (12/21/23) Acute respiratory failure with hypoxia (12/21/23) Acute kidney failure, unspecified (12/21/23) Subjective Subjective Patient was seen and examined today, physical therapy is working with the patient, he does complain of having a sore throat. Patient's potassium today was 3, creatinine appears stable at 4.18. Patient's hemoglobin was 8.8 today[address] Patient's had CT yesterday did not show any evidence of stroke. Objective Data Objective Data Vital Signs: Vital Signs Temp Pulse Resp BP Pulse Ox O2 Del Method O2 Flow Rate 97.7 F L 60 20 H 155/73 H 92 Nasal Cannula 3 12/27/23 09:59 12/27/23 10:02 12/27/23 09:59 12/27/23 10:02 12/27/23 12:44 12/27/23 12:44 12/27/23 12:44 FiO2 25 12/26/23 09:37 Oxygen Flow Rate (L/min) 3 Oxygen Delivery Method Nasal Cannula Weight: 87.9 kg Body Mass Index (BMI) 27.1 Intake & Output: Intake and Output for Last 24 Hours 12/25/23 12/26/23 12/27/23 23:59 23:59 23:59 Intake Total 1430 / 1430 3934.17 / 3934.17 1235.00 / 1235.00 Output Total 500 / 500 825 / 825 200 / 200 Balance 930 / 930 3109.17 / 3109.17 1035.00 / 1035.00 Lab / Micro Data 12/27/23 05:00 12/27/23 05:00 Labs: Laboratory Results - last 24 hr 12/26/23 15:47: POC Glucose 188 H 12/26/23 21:39: POC Glucose 165 H 12/27/23 05:00: WBC 7.9, RBC 2.74 L, Hgb 8.8 L, Hct 27.6 L, MCV 100.7 H, MCH 32.1 H, MCHC 31.9 L, RDW Std Deviation 58.4 H, RDW Coeff of Khris 15.7 H, Plt Count 244, MPV 10.4, Immature Gran % (Auto) 0.500, Neut % (Auto) 72.9 H, Lymph % (Auto) 11.1 L, [place] % (Auto) 9.7, Eos % (Auto) 4.8, Baso % (Auto) 1.0, Absolute Neuts (auto) 5.7, Absolute Lymphs (auto) 0.87, Nucleated RBC % 0, Sodium 139, Potassium 3.0 L, Chloride 110 H, Carbon Dioxide 20.0 L, Anion Gap 9, BUN 54 H, Creatinine 4.18 H, Estim Creat Clear Calc 18.89, Est GFR (MDRD) Af Amer 18 L, Est GFR (MDRD) Non-Af 15 L, BUN/Creatinine Ratio 12.9, Glucose 174 H, Calcium 8.3 L 12/27/23 06:00: POC Glucose 167 H 12/27/23 12:37: POC Glucose 144 H Micro: Microbiology 12/23/23 09:02 Sputum, Induced/Lukens Gram Stain - Final 12/23/23 09:02 Sputum, Induced/Lukens Respiratory Culture - Final 12/22/23 17:05 Blood Culture (Wb) - Left Wrist Blood Culture - Preliminary No growth in 48 hours. 12/23/23 11:25 Wound - Left Foot Gram Stain - Final 12/23/23 11:25 Wound - Left Foot Wound Culture - Final Meth. resistant Staph. aureus 12/21/23 16:27 Sputum, Induced/Lukens Gram Stain - Final 12/21/23 16:27 Sputum, Induced/Lukens Respiratory Culture - Final Mixed normal respiratory calista. No Streptococcus pneumoniae, beta-hemolytic Streptococcus or Staphylococcus aureus isolated. 12/23/23 10:45 Nasal Secretion MRSA (PCR) - Final 12/21/23 16:17 Stool Stool Occult Blood (ELISABETH) - Final 12/21/23 14:47 Mucosa - Nose SARS-CoV-2, Influenza & RSV (PCR) - Final Physical Exam Narrative Constitutional Narrative: Patient is alert and appropriate General Appearance: well kempt and well developed HEENT normocephalic, head/scalp atraumatic and moist oral mucous membranes Eyes PERRL, EOMs intact bilaterally and conjunctivae normal Neck supple, no JVD and thyroid normal General: trachea midline Resp clear to auscultation bilaterally Auscultation: Negative for rales, rhonchi or wheezes Cardio regular rate, regular rhythm, S1 normal heart sound, S2 normal heart sound, no murmurs, no rub and no gallops GI normal to inspection, nondistended, normoactive bowel sounds and non-distended Extremity Extremity Narrative: There is generalized edema of the lower legs with blister formation on the left leg over the anterior mederos area. Skin Skin Narrative: There are bandages present on the patient's ankle wounds bilaterally Neuro Neuro Narrative: Patient is alert and appropriate Psych Psych Narrative: Patient is alert and appropriate Assessment & Plan Assessment/Plan (1) Acute exacerbation of CHF (congestive heart failure): (2) Acute kidney injury: (3) Acute hypoxemic respiratory failure: PLAN: Plan 1. Acute hypoxic respiratory failure-etiology unclear at this point, may have resulted from acute exacerbation of chronic CHF-patient is now on low-flow nasal cannula oxygen #2 acute kidney injury, most likely on a backdrop of chronic kidney disease-patient's baseline kidney functions are unknown at this time, his last BMP appears to be in 2021. Patient's creatinine has risen slightly over his hospitalization, again it is unknown what the patient's baseline creatinine is. Creatinine will be monitored. Nephrology is participating in his care, patient is currently on a bicarb drip, I have elected to stop his other fluid administration. #3 Acute on chronic diastolic congestive heart failure-patient is currently not on any diuretics due to his renal function, last chest x-ray did not show evidence of congestive heart failure #4 chronic pain syndrome-patient takes methadone chronically at home according to the , she thinks he is on 10 mg twice a day, he also takes gabapentin 600 mg 3 times a day, he had been off this medication for a while, I will wait until tomorrow to consider resuming his oral narcotics. #5 anemia-etiology unclear, patient's ferritin level is normal which could indicate this is anemia of chronic disease such as an anemia of renal failure. 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 Sotomayor) and he does not feel the patient has a pharyngeal mass. Speech therapy will continue to see the patient Total clinical time spent by myself addressing patient's medical issues, reviewing all of his data, and collaborating with patient's care team: 35 minutes Charges/Coding Visit Charges Inpatient E&M: 48653 Subs Hosp L2
[2023-12-27] MEDS: hydrALAZINE 20 MG/ML Vial 10 MG IV (17:30)
[2023-12-27 17:55] LABS: Bedside Glucose 140 mg/dL (74-106)
[2023-12-27] MEDS: Acetaminophen 325 MG Tablet 650 MG PO (20:36)
[2023-12-27] MEDS: Amitriptyline 25 MG Tablet 50 MG PO (20:36)
[2023-12-27] MEDS: Albuterol 2.5 MG/3 ML VIAL.NEB. INHALATION (21:17)
[2023-12-27 21:21] LABS: Bedside Glucose 156 mg/dL (74-106)
[2023-12-28] VITALS (14 sets, daily range): BP systolic 129–188; BP diastolic 68–97; PULSE 64–78; RESP 12–22; TEMP 36.2–36.8; O2SAT 93–97; BMI 28.2
[2023-12-28] MEDS: Albuterol 2.5 MG/3 ML VIAL.NEB. INHALATION ×3 (01:21→11:01)
[2023-12-28] MEDS: oxyCODONE 5 MG Tablet 10 MG PO ×4 (02:06→20:27)
[2023-12-28] MEDS: Acetaminophen 325 MG Tablet 650 MG PO ×4 (02:06→20:27)
--- NOTE | 2023-12-28 03:25 | NURSING ---
RN called Respiratory to place patient back on BIPAP, patient more drowsy but able to answer all questions appropriately when asked. Will continue to monitor.
[2023-12-28] MEDS: Heparin Injection (Vial) 5,000 UNIT/ML VIAL 5000 UNIT SC ×3 (05:40→20:33)
[2023-12-28 06:00] LABS: Bedside Glucose 134 mg/dL (74-106)
[2023-12-28 07:27] LABS: Anion Gap 13 (5-15); BUN 54 mg/dL (7-18); BUN/Creat Ratio 14.1 RATIO (10-20); Calcium,Total 8.6 mg/dL (8.5-10.1); Chloride 109 mmol/L (98-107); Creatinine, Serum 3.83 mg/dL (0.70-1.30); EST Glomerular Filtration Rate 17 mL/min (>60); Est Glom Filt Rate - Afr Amer 20 mL/min (>60); Estimated Creatinine Clearance 20.99 ml/min; Glucose 133 mg/dL (74-106); Potassium 3.1 mmol/L (3.5-5.1); Sodium Level 141 mmol/L (136-145)
--- NOTE | 2023-12-28 09:46 | WOUNDNOTE ---
wound photo: right lateral malleolus
--- NOTE | 2023-12-28 09:47 | WOUNDNOTE ---
wound photo: left lateral malleolus
[2023-12-28] MEDS: Aspirin 81 MG TAB.CHEW PO (10:10)
[2023-12-28] MEDS: Metoprolol Tartrate 50 MG Tablet PO ×2 (10:10→20:27)
[2023-12-28] MEDS: Phenol/Sodium Phenolate 180ML 3 SPRAY MUCOUS MEM (10:10)
[2023-12-28] MEDS: Sertraline 50 MG Tablet 150 MG PO (10:10)
--- NOTE | 2023-12-28 10:13 | PCM.PN.HOSP ---
Reason for Visit Reason for Visit: Diagnoses Anemia, unspecified (12/21/23) Heart failure, unspecified (12/21/23) Acute respiratory failure with hypoxia (12/21/23) Acute kidney failure, unspecified (12/21/23) Subjective Subjective Patient reports overall feeling better than he did but still unwell overall. Has chronic pain has been having difficulty sleeping due to to this pain, also has been having little bit of nausea has been feeling very anxious since he has been here Objective Data Objective Data Vital Signs: Vital Signs Temp Pulse Resp BP Pulse Ox O2 Del Method O2 Flow Rate 98.1 F 75 22 H 161/74 H 94 Nasal Cannula 2 12/28/23 10:04 12/28/23 10:04 12/28/23 10:04 12/28/23 10:04 12/28/23 10:04 12/28/23 10:04 12/28/23 10:04 FiO2 35 12/28/23 03:44 Oxygen Flow Rate (L/min) 2 Oxygen Delivery Method Nasal Cannula Weight: 91.5 kg Body Mass Index (BMI) 28.2 Intake & Output: Intake and Output for Last 24 Hours 12/26/23 12/27/23 12/28/23 23:59 23:59 23:59 Intake Total 3934.17 / 3934.17 1655.00 / 1655.00 47.71 / 47.71 Output Total 825 / 825 1250 / 1450 300 / 300 Balance 3109.17 / 3109.17 405.00 / 205.00 -252.29 / -252.29 Lab / Micro Data 12/27/23 05:00 12/28/23 06:28 Labs: Laboratory Results - last 24 hr 12/27/23 12:37: POC Glucose 144 H 12/27/23 17:28: POC Glucose 140 H 12/27/23 20:56: POC Glucose 156 H 12/28/23 05:38: POC Glucose 134 H 12/28/23 06:28: Sodium 141, Potassium 3.1 L, Chloride 109 H, Carbon Dioxide 19.0 L, Anion Gap 13, BUN 54 H, Creatinine 3.83 H, Estim Creat Clear Calc 20.99, Est GFR (MDRD) Af Amer 20 L, Est GFR (MDRD) Non-Af 17 L, BUN/Creatinine Ratio 14.1, Glucose 133 H, Calcium 8.6 Micro: Microbiology 12/22/23 17:05 Blood Culture (Wb) - Left Wrist Blood Culture - Final No growth in 5 days. 12/23/23 09:02 Sputum, Induced/Lukens Gram Stain - Final 12/23/23 09:02 Sputum, Induced/Lukens Respiratory Culture - Final 12/23/23 11:25 Wound - Left Foot Gram Stain - Final 12/23/23 11:25 Wound - Left Foot Wound Culture - Final Meth. resistant Staph. aureus 12/21/23 16:27 Sputum, Induced/Lukens Gram Stain - Final 12/21/23 16:27 Sputum, Induced/Lukens Respiratory Culture - Final Mixed normal respiratory calista. No Streptococcus pneumoniae, beta-hemolytic Streptococcus or Staphylococcus aureus isolated. 12/23/23 10:45 Nasal Secretion MRSA (PCR) - Final 12/21/23 16:17 Stool Stool Occult Blood (ELISABETH) - Final 12/21/23 14:47 Mucosa - Nose SARS-CoV-2, Influenza & RSV (PCR) - Final Radiography Diagnostic Testing: Radiology Impression Videofluoroscopic Swallow 12/25/23 12:30 IMPRESSION: No penetration or aspiration. Please see the speech pathologist''s report for additional information. Electronically Signed: Obdulio Quijano MD at 14:16 EST Reading Location ID and State: [facility] / [place] , Service support , Physical Exam Narrative General: Alert, oriented HEENT: Atraumatic, normocephalic Eyes: Anicteric, normal conjunctiva, extraocular movements grossly intact Neck: Supple Respiratory: Crackles at the bases with increased respiratory effort Cardiovascular: Regular rate GI: Soft, nontender, nondistended Extremities: 1+ bilateral lower extremity pitting edema Musculoskeletal: Moving all extremities Neuro: No overt focal neurological deficits Skin: No rashes appreciated Psych: Cooperative Assessment & Plan Assessment/Plan (1) Acute kidney injury: PLAN: Plan # CHARLIE -Creatinine normal roughly 2 years ago and when he presented to the hospital creatinine 3.01 however no values available between -Renal function had been worsening up to 4.18, today slightly down to 3.83 -Nephrology on consult -Holding lisinopril and hydrochlorothiazide -Has received some IV fluids but appears overloaded at this time no further IV fluids and patient will receive Lasix -If kidney function worsens we will need to revisit discussion about dialysis with nephrology # 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 -Being followed by wound care -Wounds appear to be healing well without any significant drainage, there was a culture from 12/22 from a left foot wound that grew MRSA however patient has not had a leukocytosis, wounds do not appear infected, afebrile and has not been treated for any antibiotics for this #Left maxillary sinusitis -ENT evaluated and noted acute left maxillary sinusitis and recommended continuing IV antibiotics and that he will need discharged on antibiotics and follow-up with ENT on an outpatient basis # Acute hypercapnic and hypoxemic respiratory failure -Patient did initially require intubation and is now status post extubation -There is concern for CHF exacerbation versus pneumonia however patient had sputum production and fevers and did not seem overtly volume overloaded so he was treated for pneumonia -Echocardiogram 12/22/2023 demonstrated EF 60% and stage I diastolic dysfunction -Patient now with increasing weight as well as crackles and some peripheral edema and appears fluid overloaded does have some increased work of breathing. Discussed with nephrology the patient started on IV Lasix # Moderate pericardial effusion -Measures between 1 and 2 cm posterior to left ventricle approximately 2.6 cm, this was seen 12/22/2023 there is no evidence of tamponade -IV fluids resuming # Chronic pain -Minimize sedating medications were possible given patient's altered mental status on arrival -Patient alternating with oxycodone and acetaminophen, also on Elavil -Will need to proceed cautiously to avoid oversedation but do not want to undertreat pain if possible #Type 2 diabetes mellitus -Glucose checks and sliding scale insulin # Dysphagia -There was concern for pharyngeal mass but CT did not reveal mass and ENT did not feel pharyngeal mass was present as well -Speech therapy working with patient -Patient with diet recommendations in place after cookie swallow -GI consult recommended but is felt it could be appropriate for outpatient consultation #Depression/anxiety -Continue home medications -Patient has reported some increased anxiety, discussed dangers of oversedation with benzodiazepines especially given his concomitant opioid use, will start very low-dose of BuSpar with kidney function #DVT ppx: Heparin subcu Linette Lees MD Charges/Coding Visit Charges Inpatient E&M: 88514 Subs Hosp L2
[2023-12-28] MEDS: 0.9% Saline Lock 10 ML Syringe IV (10:37)
[2023-12-28] MEDS: Piperacil/Tazobactam 3.375 GM in 0.9% Normal Saline (50mL MB+) 50 ML IV ×2 (10:37→20:41)
[2023-12-28] MEDS: hydrALAZINE 20 MG/ML Vial 10 MG IV (10:37)
[2023-12-28] MEDS: Pantoprazole Sodium 40 MG in 0.9% Normal Saline (100mL MB+) 100 ML 330 MG IV ×2 (10:43→20:28)
--- NOTE | 2023-12-28 11:14 | PN.RENAL_ITS ---
<Statement entered by Sedrick Ashley MD - 12/28/23 14:22> I have personally performed a face to face assessment of the patient and have reviewed the CULLEN Note. CULLEN's note reflects my independent evaluation and management decision. We are following patient for acute kidney injury. My suspicion is that patient likely has underlying CKD as well. However, the most recent available serum creatinine prior to this admission was from July 2021. At that time, serum creatinine was 0.80 to 1.30 mg/dL. Thus far, serum creatinine has peaked at 4.18 mg/dL on 12/27/2023. The patient is not oliguric. Urinalysis does show proteinuria. However, I have low suspicion for acute GN since there is no microscopic hematuria. I suspect patient has underlying diabetic kidney disease. However, since there is significant proteinuria (urine protein to creatinine ratio is 3.9 g/g), I will check PLA2R antibody if we can send it from the hospital. If not, we can check as outpatient as well. There is no urgent need for hemodialysis. The patient is not hyperkalemic or severely acidotic. Despite IV contrast exposure on 12/26/2023, serum creatinine has trended down and is 3.83 mg/dL today. We have been holding diuretic. However, patient does have edema and basilar crackles on auscultation of the lungs. I will check chest x-ray again tomorrow. Maxwell Fleming MD Subjective Subjective Sitting up in bed. No complaints. Reviewed with patient renal function has improved today. He denies any nausea or vomiting. Patient does state he takes Motrin daily for chronic pain. Objective Data Objective Data Vital Signs: Vital Signs Temp Pulse Resp BP Pulse Ox O2 Del Method O2 Flow Rate 98.1 F 75 22 H 161/74 H 94 Nasal Cannula 2 12/28/23 10:04 12/28/23 10:37 12/28/23 10:04 12/28/23 10:37 12/28/23 10:04 12/28/23 10:04 12/28/23 10:04 FiO2 35 12/28/23 03:44 Oxygen Flow Rate (L/min) 2 Oxygen Delivery Method Nasal Cannula Weight: 91.5 kg Body Mass Index (BMI) 28.2 Intake & Output: Intake and Output for Last 24 Hours 12/26/23 12/27/23 12/28/23 23:59 23:59 23:59 Intake Total 3934.17 / 3934.17 1655.00 / 1655.00 47.71 / 47.71 Output Total 825 / 825 1250 / 1450 300 / 300 Balance 3109.17 / 3109.17 405.00 / 205.00 -252.29 / -252.29 Lab / Micro Data 12/27/23 05:00 12/28/23 06:28 Labs: Laboratory Results - last 24 hr 12/27/23 12:37: POC Glucose 144 H 12/27/23 17:28: POC Glucose 140 H 12/27/23 20:56: POC Glucose 156 H 12/28/23 05:38: POC Glucose 134 H 12/28/23 06:28: Sodium 141, Potassium 3.1 L, Chloride 109 H, Carbon Dioxide 19.0 L, Anion Gap 13, BUN 54 H, Creatinine 3.83 H, Estim Creat Clear Calc 20.99, Est GFR (MDRD) Af Amer 20 L, Est GFR (MDRD) Non-Af 17 L, BUN/Creatinine Ratio 14.1, Glucose 133 H, Calcium 8.6 Micro: Microbiology 12/22/23 17:05 Blood Culture (Wb) - Left Wrist Blood Culture - Final No growth in 5 days. 12/23/23 09:02 Sputum, Induced/Lukens Gram Stain - Final 12/23/23 09:02 Sputum, Induced/Lukens Respiratory Culture - Final 12/23/23 11:25 Wound - Left Foot Gram Stain - Final 12/23/23 11:25 Wound - Left Foot Wound Culture - Final Meth. resistant Staph. aureus 12/21/23 16:27 Sputum, Induced/Lukens Gram Stain - Final 12/21/23 16:27 Sputum, Induced/Lukens Respiratory Culture - Final Mixed normal respiratory calista. No Streptococcus pneumoniae, beta-hemolytic Streptococcus or Staphylococcus aureus isolated. 12/23/23 10:45 Nasal Secretion MRSA (PCR) - Final 12/21/23 16:17 Stool Stool Occult Blood (ELISABETH) - Final 12/21/23 14:47 Mucosa - Nose SARS-CoV-2, Influenza & RSV (PCR) - Final Radiography Diagnostic Testing: Radiology Impression Videofluoroscopic Swallow 12/25/23 12:30 IMPRESSION: No penetration or aspiration. Please see the speech pathologist''s report for additional information. Electronically Signed: Obdulio Quijano MD at 14:16 EST , Physical Exam Narrative no obvious distress no pallor no icterus no JVD s1s2 no murmurs diminished lung sounds bilaterally with faint rales abdomen soft no organomegaly non-pitting, generalized b/l lower extremity edema Assessment & Plan Assessment/Plan (1) Acute kidney injury: PLAN: Impression/Plan: The patient is a 68-year-old male with past history of type 2 diabetes mellitus, hypertension, COPD, EBONY, PAD, and nephrolithiasis. The patient was admitted to hospital on 12/21/2023 with acute hypoxic respiratory failure. Nephrology is following for CHARLIE. - Acute kidney injury. Baseline creatinine was normal but that was about 2 years ago. Patient presented to hospital with serum creatinine of 3.01 mg/dL. Renal function has slowly worsened. SCr peak 4.18 mg/dL on 12/24 and 12/26, however today there has been some improvement with SCr 3.83. No urgent need for kidney replacement therapy today. K+ low and bicarb acceptable. Patient is non-oliguric and volume status appears near euvolemic, no overt fluid overload noted. Renal ultrasound with echogenic right kidney but no hydronephrosis, suspect patient has some underlying CKD. Urinalysis did not show any microscopic hematuria. Urine protein creatinine ratio is 3.94 g/g. Proteinuria is likely due to diabetic kidney disease. Since admission lisinopril and hydrochlorothiazide as been on hold. Patient aware to avoid NSAIDs. Patient did receive trial of IV fluids but now off IV fluids. - hypokalemia; replacement ordered again today. Patient is not on diuretics. When able to have diet patient does not need renal diet restrictions. - Hyperphosphatemia secondary to CHARLIE on probable CKD. Phosphorus 6.2. Started on sevelamer one with meals. - Acute hypoxic respiratory failure. Etiology unclear. Extubated 12/23. History of COPD and chronic diastolic congestive heart failure. Last CXR from 12/21: infiltrates L>R. Acute left maxillary sinusitis, on Zosyn. Now on nasal canula.
[2023-12-28] MEDS: Potassium Chloride 10mEq/100mL 10 MEQ/100 ML IV.SOLN. 100 MEQ IV BOLUS ×3 (11:15→15:16)
[2023-12-28 12:14] LABS: Bedside Glucose 116 mg/dL (74-106)
--- NOTE | 2023-12-28 13:41 | SP.MBSS_ITS ---
Modified Barium Swallow Patient Information Study Date: 12/28/23 Study Time: 13:00 Direct Billable Minutes: 120 Total Minutes procedure & reportin Diagnosis: Acute hypoxemic respiratory failure J96.01 Referring Physician: Linette Lees Reason for Referral: Objectively assess swallow function, assess risk for aspiration, and determine recommendations for least restrictive diet textures and compensatory strategies to improve safety of swallow. Medical History: The patient presented to the [facility] ED on 12/21/2023 with altered mental status and worsening shortness of breath. He had progressive weakness, SOB, and difficulty lying flat over the past few weeks. He was hypoxic and somnolent on arrival. Chest X-ray showed cardiomegaly and probable small left pleural effusion. Given concerns for heart failure exacerbation and volume overload, he was placed on BiPAP but became obtunded, requiring intubation. He was transferred to the ICU and extubated on 12/24/2023. The patient failed the RN dysphagia screener and was referred for a bedside swallow evaluation with SHOVEL OILER. Due to coughing with liquids larger than a teaspoon, a MBSS is recommended to assess aspiration risk and determine appropriate strategies. MBSS 12/25/2023 revealed oropharyngeal dysphagia w/ silent aspiration of thin liquids and laryngeal penetration of thickened liquid to the vocal folds w/o complete ejection. He was recommended NPO. There was also concern for abnormality on pharyngeal wall w/ soft tissue CT of neck and ENT consult recommended. ENT not concerned for any abnormalities. Soft tissue CT of the neck revealed no concerns for a mass, but it did note Atherosclerotic calcifications of the carotid arteries bilaterally. He has been referred for repeat MBSS to re-assess swallow function and aspiration risk to determine appropriateness for diet advancement. PMH: Acute respiratory failure, adjustment disorder, AMS, anxiety, coronary artery calcification, cardiomegaly, CKD, CHF, COPD, chronic opioid use, encephalopathy, hypertension, sepsis history, nicotine and opioid dependence, EBONY, pericardial effusion (June 2020), pleural effusion, type 2 diabetes. See EMR for full details. Current Diet Ordered: NPO, sips and chips Dentition: Natural Teeth and Missing Teeth Mental Status: WNL Respiratory Status: Oxygenating on 2L/M nasal cannula Penetration-Aspiration Scale Penetration-Aspiration Scale: OBJECTIVE ASSESSMENT OF SWALLOW FUNCTION (QUANTITATIVE ? PER TRIAL): PENETRATION / ASPIRATION SCALE (FRANKLIN): 1 = does not enter airway 2 = enters airway/above vocal folds/ejected 3 = enters airway/above vocal folds/not ejected 4 = enters airway/contacts vocal folds/ejected 5 = enters airway/contacts vocal folds/not ejected 6 = enters airway/below vocal folds/ejected 7 = enters airway/below vocal folds/not ejected despite effort 8 = enters airway/below vocal folds/no effort VIDEOFLOROSCOPIC SCALE SCORE (FRANKLIN): Grade I = aspiration of material that has penetrated into the laryngeal vestibule, intact cough reflex Grade II = aspiration < 10 % of the bolus, intact cough reflex Grade III = aspiration of < 10 % of the bolus, reduced cough reflex or aspiration of > 10 % of the bolus, intact cough reflex Grade IV = aspiration of > 10 % of the bolus, reduced cough reflex Penetration-Aspiration Scale Score Thin Liquid via teaspoon: Result: 8= enters airway/below vocal folds/no effort Comment: delayed, weak throat clear Thin Liquid via teaspoon Trial 2: Result: 2= enter airway/above vocal folds/ejected Thin Liquid via small single sip: cup Effortful swallow: Result: 5= enters airways/contacts vocal folds/not ejected Delphos Thick Liquid via small single sip: cup: Result: 3= enters airways/above vocal folds/not ejected Pudding via teaspoon: Result: 1= does not enter airway Comment: Esophageal screen - Retention in the lower esophagus w/ retrograde flow to the mid esophagus. 1/2 Cookie: Result: 1= does not enter airway Comment: Esophageal screen - Retention in the lower esophagus w/ min retrograde flow. Thin Liquid via single sip: straw: Result: 5= enters airways/contacts vocal folds/not ejected Thin Liquid via small single sip: cup Trial 2: Result: 7= enters airways/below vocal folds/not ejected despite effort Comment: SHOVEL OILER positioned pt slightly reclined so neck was more upright. Not effective, pt had increased amount of aspiration. Also, post prandial aspiration of previous trial prior to this swallow. Delphos Thick Liquid via small single sip: cup Trial 2: Result: 2= enter airway/above vocal folds/ejected Comment: Esophageal screen - Retention in the lower esophagus. Thin Liquid via small single sip: cup Chin tuck: Result: 5= enters airways/contacts vocal folds/not ejected Comment: Can't definitively rule out aspiration due to positioning obstructing view of the patient's airway. Delphos Thick Liquid via small single sip: cup Other: Comment: AP view. No PAS score. Bolus initially spilled to the L side of the pharynx. Symmetrical pharyngeal contraction during the swallow. Oral Phase Labial Seal: No Labial Escape Tongue Control During Bolus Hold: Posterior escape of greater than half of bolus Bolus Preparation/Mastication: Disorganized chewing/mashing with solid pieces of bolus unchewed Bolus Transport/Lingual Motion: Slowed tongue motion Oral Residue: Residue collection on oral structures Pharyngeal Phase Initiation of Pharyngeal Swallow: Bolus head in pyriforms Soft Palate Elevation: Trace column of contrast/air between soft palate and pharyngeal wall Laryngeal Elevation: Partial superior movement thyroid cart/partial apprx aryt- epig petiole Anterior Hyoid Excursion: Complete anterior movement Epiglottic Movement: Complete inversion Laryngeal Vestibule Closure at Height of Swallow: Incomplete; narrow column of air/contrast in laryngeal vestibule Pharyngeal Stripping Wave: Present - diminished Pharyngoesophageal Segment Opening: Parital distension and partial duration; parital obstruction of flow (trace retention in UES w/ ) Tongue Base Retraction: Narrow column of contrast between tongue base & post. pharyngeal wall Pharyngeal Residue: Collection of residue within or on pharyngeal structures Esophageal Phase Esophageal Clearance: Esophageal retention w/ retrograde flow below pharyngoesophageal seg. Diagnosis/Impression Diagnosis: Moderate oropharyngeal dysphagia R13.12 Impression: SHOVEL OILER had the patient rotate head L and R prior to starting exam to further assess abnormal posterior pharyngeal wall. Darkened appearance on posterior pharyngeal wall appeared to pivot L and R w/ head rotation. These darkened areas are likely calcifications of the carotid arteries consistent w/ neck CT completed on 12/25/2023. The calcifications were also visible bilaterally on A-P view. The oral phase is primarily marked by.. -Decreased mastication w/ small pieces of cookie appearing un-chewed. -Premature posterior loss, most notable w/ thin liquids. Thin by cup trial 2 spilled to the airway prior to swallow onset resulting in aspiration before the swallow. -Mild-moderate oral residues, which mostly cleared w/ multiple swallows. The pharyngeal phase is primarily marked by... -Delayed swallow onset. -Mild-moderate pharyngeal residues due to decreased tongue base retraction, pharyngeal stripping wave, and UES opening/duration, which mostly cleared w/ multiple swallows. -Decreased laryngeal elevation resulting in decreased airway closure during the swallow. -SILENT aspiration of thin by tsp during the swallow. Overt aspiration of thin by cup before the swallow w/ ineffective reflexive cough. SILENT post prandial aspiration of thin liquids by straw. See PAS scores above for full details re: laryngeal penetration and aspiration. The esophageal phase is primarily marked by... -Esophageal retention of mildly thick, pudding, and cookie in the lower esophagus. Retrograde flow of pudding to the mid-esophagus. Recommendations Diet: Mechanical Soft Textures (Soft and Bite Size Textures - IDDSI Level 6) and Delphos-thick Liquids (Mildly Thick Liquids - IDDSI Level 2) Comment: STOP eating/drinking if increased s/s of reflux, sensation of retention, or regurgitation and resume at a later time. Compensatory Strategies: Small Bites, Small Sips, Slow Rate, Multiple Swallows, Alternate bites/solids and sips/liquids and Sitting upright (during and 60min after meal) Supervision: 1:1 Close Supervision Recommend Repeat Modified Barium Swallow: Yes Comment: Repeat MBSS in 1-3 weeks after implementation of oropharyngeal exercise program to re-assess aspiration risk w/ liquids to consider diet advancement. Need for Skilled Speech Therapy Services: Yes Comment: -Train the patient and staff in use of strategies to decrease risk for aspiration and reflux aspiration. -Ongoing assessment of diet tolerance of recommended textures. Monitor respiratory status. Consider implementation of Rodrigues Free Water Protocol at next level of care if deemed appropriate by treating SHOVEL OILER. -Train the patient in oropharyngeal exercise program to improve bolus control, swallow onset, airway closure, and pharyngeal contraction (lingual resistance, James, CTAR, effortful). Recommended Referrals: GI Consult Education Completed: 1. Described result of evaluation. Status Active ST Patient: Active Contact Information [facility] Speech Therapy:: Mary Gregorio M.A. CCC-SHOVEL OILER? Speech-Language Pathologist?? [facility] [address] [place] [address]? [email or web address]?? [phone]
[2023-12-28 15:20] LABS: Allen Test Positive; Base Excess -8 mmol/L (-2 to +2); Bicarbonate 17.8 mmol/L (22-26); Blood Gas Specimen Type ART; Mode Not entered; O2 Delivery Device Cannula; PO2 71 mmHG (75-100); SITE L Radial; SO2 93 % (95-99); Total Carbon Dioxide 19 mmol/L; pCO2 33.2 mmHg (35-45); pH 7.34 (7.35-7.45)
[2023-12-28] MEDS: Furosemide 100 MG/10 ML Vial 60 MG IV (15:30)
[2023-12-28] MEDS: busPIRone 5 MG Tablet 2.5 MG PO ×2 (15:30→20:33)
[2023-12-28] MEDS: Sodium Chloride 0.65% 1 SPRAY SPRAY.BTL 2 SPRAY NASAL (15:31)
[2023-12-28 16:18] LABS: Bedside Glucose 152 mg/dL (74-106)
[2023-12-28] MEDS: Amitriptyline 25 MG Tablet 50 MG PO (20:27)
[2023-12-28] MEDS: Insulin Lispro 100 UNIT/ML INSULN.PEN SC (20:34)
[2023-12-28 21:21] LABS: Bedside Glucose 161 mg/dL (74-106)
[2023-12-29] VITALS (18 sets, daily range): BP systolic 151–186; BP diastolic 71–95; PULSE 62–77; RESP 12–34; TEMP 36.1–36.7; O2SAT 94–98; BMI 28.2
[2023-12-29] MEDS: oxyCODONE 5 MG Tablet 10 MG PO ×4 (01:09→15:35)
[2023-12-29] MEDS: Acetaminophen 325 MG Tablet 650 MG PO ×4 (01:09→15:35)
[2023-12-29] MEDS: hydrALAZINE 20 MG/ML Vial 10 MG IV ×3 (01:19→17:14)
[2023-12-29] MEDS: Heparin Injection (Vial) 5,000 UNIT/ML VIAL 5000 UNIT SC ×3 (05:43→21:51)
[2023-12-29 06:23] LABS: Absolute Lymphocyte Count 0.79 X10^3/uL (0.83-4.51); Basophil# 0.08 X10^3/uL; Basophil% 0.9 % (0-1); Eosinophil# 0.25 X10^3/uL; Eosinophils% 2.8 % (0-5); Hematocrit 28.1 % (40-54); Lymphocyte # 0.79 X10^3/ul (0.83-4.51); Lymphocyte % 8.9 % (19-41); Mean Corpuscular Hgb 31.9 pg (27.0-32.0); Mean Corpuscular Volume 99.6 fL (80-94); Mean Platelet Vol. 10.2 fl (6.2-12.0); Monocyte# 0.73 X10^3/uL; Monocyte% 8.2 % (0-10); NRBC Flagged by Analyzer 0 % (0-5); Neutrophil # 7.01 X10^3/uL (2.7-7.7); Neutrophil % 78.9 % (47-70); Platelet Count 218 K/mm3 (150-450); RBC Distribution Width CV 15.9 % (11.6-14.6); RBC Distribution Width SD 57.8 fl (35.1-43.9); Red Blood Count 2.82 M/mm3 (4.6-6.2); White Blood Count 8.9 K/mm3 (4.4-11.0)
[2023-12-29 06:48] LABS: Bedside Glucose 115 mg/dL (74-106)
[2023-12-29 06:49] LABS: Anion Gap 8 (5-15); BUN 51 mg/dL (7-18); BUN/Creat Ratio 13.5 RATIO (10-20); Calcium,Total 8.6 mg/dL (8.5-10.1); Chloride 113 mmol/L (98-107); Creatinine, Serum 3.77 mg/dL (0.70-1.30); EST Glomerular Filtration Rate 17 mL/min (>60); Est Glom Filt Rate - Afr Amer 21 mL/min (>60); Estimated Creatinine Clearance 21.32 ml/min; Glucose 123 mg/dL (74-106); Potassium 3.2 mmol/L (3.5-5.1); Sodium Level 140 mmol/L (136-145)
--- NOTE | 2023-12-29 08:39 | PCM.PN.HOSP ---
Reason for Visit Reason for Visit: Diagnoses Anemia, unspecified (12/21/23) Heart failure, unspecified (12/21/23) Acute respiratory failure with hypoxia (12/21/23) Acute kidney failure, unspecified (12/21/23) Subjective Subjective Patient does feel his breathing is better than yesterday, still overall not feeling very well. Still having a lot of his chronic pain. No other new acute complaints Objective Data Objective Data Vital Signs: Vital Signs Temp Pulse Resp BP Pulse Ox O2 Del Method O2 Flow Rate 98.1 F 64 20 H 172/95 H 95 Room Air 2 12/29/23 05:44 12/29/23 05:44 12/29/23 05:44 12/29/23 05:44 12/29/23 05:44 12/29/23 05:44 12/29/23 05:44 FiO2 30 12/28/23 23:14 Oxygen Flow Rate (L/min) 2 Oxygen Delivery Method Room Air Weight: 91.4 kg Body Mass Index (BMI) 28.2 Intake & Output: Intake and Output for Last 24 Hours 12/27/23 12/28/23 12/29/23 23:59 23:59 23:59 Intake Total 1655.00 / 1655.00 1017.71 / 1017.71 50 / 50 Output Total 1250 / 1450 1200 / 2150 1200 / 1200 Balance 405.00 / 205.00 -182.29 / -1132.29 -1150 / -1150 Lab / Micro Data 12/29/23 06:03 12/29/23 06:03 Labs: Laboratory Results - last 24 hr 12/28/23 11:07: POC Glucose 116 H 12/28/23 15:53: POC Glucose 152 H 12/28/23 20:32: POC Glucose 161 H 12/29/23 06:03: WBC 8.9, RBC 2.82 L, Hgb 9.0 L, Hct 28.1 L, MCV 99.6 H, MCH 31.9, MCHC 32.0, RDW Std Deviation 57.8 H, RDW Coeff of Khris 15.9 H, Plt Count 218, MPV 10.2, Immature Gran % (Auto) 0.300, Neut % (Auto) 78.9 H, Lymph % (Auto) 8.9 L, [place]ath[place] % (Auto) 8.2, Eos % (Auto) 2.8, Baso % (Auto) 0.9, Absolute Neuts (auto) 7.0, Absolute Lymphs (auto) 0.79 L, Nucleated RBC % 0, Sodium 140, Potassium 3.2 L, Chloride 113 H, Carbon Dioxide 19.0 L, Anion Gap 8, BUN 51 H, Creatinine 3.77 H, Estim Creat Clear Calc 21.32, Est GFR (MDRD) Af Amer 21 L, Est GFR (MDRD) Non-Af 17 L, BUN/Creatinine Ratio 13.5, Glucose 123 H, Calcium 8.6 12/29/23 06:16: POC Glucose 115 H Micro: Microbiology 12/22/23 17:05 Blood Culture (Wb) - Left Wrist Blood Culture - Final No growth in 5 days. 12/23/23 09:02 Sputum, Induced/Lukens Gram Stain - Final 12/23/23 09:02 Sputum, Induced/Lukens Respiratory Culture - Final 12/23/23 11:25 Wound - Left Foot Gram Stain - Final 12/23/23 11:25 Wound - Left Foot Wound Culture - Final Meth. resistant Staph. aureus 12/21/23 16:27 Sputum, Induced/Lukens Gram Stain - Final 12/21/23 16:27 Sputum, Induced/Lukens Respiratory Culture - Final Mixed normal respiratory calista. No Streptococcus pneumoniae, beta-hemolytic Streptococcus or Staphylococcus aureus isolated. 12/23/23 10:45 Nasal Secretion MRSA (PCR) - Final 12/21/23 16:17 Stool Stool Occult Blood (ELISABETH) - Final 12/21/23 14:47 Mucosa - Nose SARS-CoV-2, Influenza & RSV (PCR) - Final ABG Data ABG results: ABG 12/28/23 15:17 Specimen Type ART Sample Site L Radial pH 7.34 L Bicarbonate Actual 17.8 L Total CO2 19 Base Excess -8 L O2 Saturation 93 L O2 % 28.0 ABG pCO2 33.2 L ABG pO2 71 L Bradley Test Positive O2 Delivery Device Cannula Vent Mode Not entered Radiography Diagnostic Testing: Radiology Impression Chest X-Ray 12/29/23 14:22 IMPRESSION: Bilateral infiltrates and atelectatic changes more dense and confluent in the left lung base. Electronically Signed: Chan Horowitz MD at 8:11 EST , Physical Exam Narrative General: Alert, oriented, appears more comfortable today HEENT: Atraumatic, normocephalic Eyes: Anicteric, normal conjunctiva, extraocular movements grossly intact Neck: Supple Respiratory: Respiratory effort improved from yesterday, crackles improving Cardiovascular: Regular rate GI: Soft, nontender, nondistended Extremities: 1+ bilateral lower extremity pitting edema Musculoskeletal: Moving all extremities Neuro: No overt focal neurological deficits Skin: No rashes appreciated Psych: Cooperative Assessment & Plan Assessment/Plan (1) Acute kidney injury: PLAN: Plan # CHARLIE -Creatinine normal roughly 2 years ago and when he presented to the hospital creatinine 3.01 however no values available between -Renal function had been worsening up to 4.18, today slightly down to 3.83 -Nephrology on consult -Holding lisinopril and hydrochlorothiazide -Has received some IV fluids but appears overloaded at this time no further IV fluids and patient will receive Lasix -If kidney function worsens we will need to revisit discussion about dialysis with nephrology -12/28: Despite IV Lasix for patient's breathing and volume overload, creatinine did slightly improve again today. 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 -Being followed by wound care -Wounds appear to be healing well without any significant drainage, there was a culture from 12/22 from a left foot wound that grew MRSA however patient has not had a leukocytosis, wounds do not appear infected, afebrile and has not been treated for any antibiotics for this -12/28: Wound care continue to monitor #Left maxillary sinusitis -ENT evaluated and noted acute left maxillary sinusitis and recommended continuing IV antibiotics and that he will need discharged on antibiotics and follow-up with ENT on an outpatient basis -12/28: Patient continued on Zosyn # Acute hypercapnic and hypoxemic respiratory failure -Patient did initially require intubation and is now status post extubation -There is concern for CHF exacerbation versus pneumonia however patient had sputum production and fevers and did not seem overtly volume overloaded so he was treated for pneumonia -Echocardiogram 12/22/2023 demonstrated EF 60% and stage I diastolic dysfunction -Patient now with increasing weight as well as crackles and some peripheral edema and appears fluid overloaded does have some increased work of breathing. Discussed with nephrology the patient started on IV Lasix -12/28: X-ray with bilateral infiltrates left greater than right of unclear significance or duration, suspect it is a component of fluid overload with atelectasis and patient has been treated for pneumonia as well and is on Zosyn. continue to encourage incentive spirometer, Pep therapy ordered # Moderate pericardial effusion -Measures between 1 and 2 cm posterior to left ventricle approximately 2.6 cm, this was seen 12/22/2023 there is no evidence of tamponade -IV Lasix resuming -12/28: Echocardiogram was from 12/21, limited echo repeated and showed the effusion is essentially unchanged overall but mildly loculated around the left ventricle and in some views appears to be mildly worse. No evidence or signs of impending tamponade. Patient diuresed yesterday and again today. # Chronic pain -Minimize sedating medications were possible given patient's altered mental status on arrival -Patient alternating with oxycodone and acetaminophen, also on Elavil -Will need to proceed cautiously to avoid oversedation but do not want to undertreat pain if possible -12/28: Continues to have improvement in kidney function however given low creatinine clearance and multiple medications the renal clearance will need to start very low with any reinitiation of pain medication. An external fill history he had not filled anything in a while and then on the fifth of this month he filled amitriptyline, Flexeril, and gabapentin 600 3 times daily from a physician health center assistant in the [facility] system. Will start 100 daily of gabapentin and can consider uptitrating depending on patient's level of alertness and response #Type 2 diabetes mellitus -Glucose checks and sliding scale insulin -12/28: Has been fairly well-controlled # Dysphagia -There was concern for pharyngeal mass but CT did not reveal mass and ENT did not feel pharyngeal mass was present as well -Speech therapy working with patient -Patient with diet recommendations in place after cookie swallow -GI consult recommended but is felt it could be appropriate for outpatient consultation -12/28: Continue current diet and working with speech, outpatient GI evaluation #Depression/anxiety -Continue home medications -Patient has reported some increased anxiety, discussed dangers of oversedation with benzodiazepines especially given his concomitant opioid use, will start very low-dose of BuSpar with kidney function -12/28: Continue low-dose BuSpar and sertraline #DVT ppx: Heparin subcu Linette Lees MD Charges/Coding Visit Charges Inpatient E&M: 90997 Subs Hosp L2
--- NOTE | 2023-12-29 08:44 | ECHOL_ITS ---
Reason For Study: Pericardial Effusion Procedure This was a limited 2D transthoracic echocardiogram. Exam performed portable in patient room. Left Ventricle Normal LV size. Left ventricular systolic function is normal. The left ventricular ejection fraction is 55 %. No regional wall motion abnormalities noted. Right Ventricle Normal RV size. Normal systolic function. Pulmonic Valve Normal pulmonic valve. Great Vessels Normal aortic root. Pericardium/Pleural Moderate (1.0-2.0 cm) pericardial effusion. There are no echocardiographic indications of cardiac tamponade. In comparison to the previous echocardiogram the above findings are essentially unchanged overall but mildly loculated around the left ventricle and in some views appears to be mildly worse. MMode/2D Measurements & Calculations SV(MOD-sp4): 55.1 ml SV(sp4-el): 60.9 ml LVAd ap4: 31.3 cm2 LVLd ap4: 8.6 cm SI(MOD-sp4): 26.3 ml/m2 EDV(MOD-sp4): 93.5 ml EDV(sp4-el): 96.6 ml LVAs ap4: 17.3 cm2 LVLs ap4: 7.1 cm ESV(MOD-sp4): 38.4 ml ESV(sp4-el): 35.7 ml EF(MOD-sp4): 58.9 % EF(sp4-el): 63.1 % ECHO/Echo, Limited Study Interpretation Summary Normal LV size. Left ventricular systolic function is normal. The left ventricular ejection fraction is 55 %. Moderate (1.0-2.0 cm) pericardial effusion. There are no echocardiographic indications of cardiac tamponade. In comparison to the previous echocardiogram the above findings are essentially unchanged overall but mildly loculated around the left ventricle and in some views appears to be mildly worse Ordering Physician: Linette Lees Performed By: Josue Brown and Student
[2023-12-29] MEDS: Piperacil/Tazobactam 3.375 GM in 0.9% Normal Saline (50mL MB+) 50 ML IV ×2 (09:19→22:03)
[2023-12-29] MEDS: Pantoprazole Sodium 40 MG in 0.9% Normal Saline (100mL MB+) 100 ML 330 MG IV ×2 (09:19→22:04)
[2023-12-29] MEDS: Furosemide 100 MG/10 ML Vial 60 MG IV (09:25)
[2023-12-29] MEDS: Aspirin 81 MG TAB.CHEW PO (09:29)
[2023-12-29] MEDS: SEVELAMER CARBONATE 800 MG TABLET PO ×3 (09:29→17:11)
[2023-12-29] MEDS: Metoprolol Tartrate 50 MG Tablet PO ×2 (09:30→21:52)
[2023-12-29] MEDS: Sertraline 50 MG Tablet 150 MG PO (09:31)
[2023-12-29] MEDS: Potassium Chloride Oral Soln 20 MEQ/15 ML UDC PO (10:51)
[2023-12-29] MEDS: busPIRone 5 MG Tablet 2.5 MG PO ×2 (10:51→21:52)
[2023-12-29] MEDS: Phenol/Sodium Phenolate 180ML 3 SPRAY MUCOUS MEM (10:53)
--- NOTE | 2023-12-29 11:08 | PN.RENAL_ITS ---
<Statement entered by Sedrick Ashley MD - 12/29/23 20:14> I have personally performed a face to face assessment of the patient and have reviewed the CULLEN Note. We are following patient for acute kidney injury. My suspicion is that patient likely has underlying CKD as well. However, the most recent available serum creatinine prior to this admission was from July 2021. At that time, serum creatinine was 0.80 to 1.30 mg/dL. Thus far, serum creatinine has peaked at 4.18 mg/dL on 12/27/2023. The patient is not oliguric. Urinalysis does show proteinuria. However, I have low suspicion for acute GN since there is no microscopic hematuria. I suspect patient has underlying diabetic kidney disease. However, since there is significant proteinuria (urine protein to creatinine ratio is 3.9 g/g). I cannot send PLA2R Ab from the hospital. We can check as outpatient as well. Because of volume overload (CXR looks wet today), we restarted Lasix 60 mg IV x 1 yesterday. He received another dose of Lasix today. There is no urgent need for hemodialysis. The patient is not hyperkalemic or severely acidotic. Despite IV contrast exposure on 12/26/2023 and restart of Lasix, serum creatinine has trended down and is 3.77 mg/dL today. Will recheck renal function, volume status, acid-base and electrolytes again tomorrow. Maxwell Fleming MD Subjective Subjective Sitting up in bed. Clinically looking better today. Started back on diet yesterday. Complains of sore throat. No other complaints. Denies any shortness of breath. Objective Data Objective Data Vital Signs: Vital Signs Temp Pulse Resp BP Pulse Ox O2 Del Method O2 Flow Rate 97.2 F L 66 16 186/89 H 95 Nasal Cannula 2 12/29/23 09:07 12/29/23 09:30 12/29/23 09:07 12/29/23 11:02 12/29/23 09:07 12/29/23 09:20 12/29/23 09:20 FiO2 30 12/28/23 23:14 Oxygen Flow Rate (L/min) 2 Oxygen Delivery Method Nasal Cannula Weight: 91.4 kg Body Mass Index (BMI) 28.2 Intake & Output: Intake and Output for Last 24 Hours 11/12/28/23 12/29/23 23:59 23:59 23:59 Intake Total 1655.00 / 1655.00 1017.71 / 1017.71 160 / 160 Output Total 1250 / 1450 1200 / 2150 1200 / 1200 Balance 405.00 / 205.00 -182.29 / -1132.29 -1040 / -1040 Lab / Micro Data 12/29/23 06:03 12/29/23 06:03 Labs: Laboratory Results - last 24 hr 12/28/23 11:07: POC Glucose 116 H 12/28/23 15:53: POC Glucose 152 H 12/28/23 20:32: POC Glucose 161 H 12/29/23 06:03: WBC 8.9, RBC 2.82 L, Hgb 9.0 L, Hct 28.1 L, MCV 99.6 H, MCH 31.9, MCHC 32.0, RDW Std Deviation 57.8 H, RDW Coeff of Khris 15.9 H, Plt Count 218, MPV 10.2, Immature Gran % (Auto) 0.300, Neut % (Auto) 78.9 H, Lymph % (Auto) 8.9 L, [place] % (Auto) 8.2, Eos % (Auto) 2.8, Baso % (Auto) 0.9, Absolute Neuts (auto) 7.0, Absolute Lymphs (auto) 0.79 L, Nucleated RBC % 0, Sodium 140, Potassium 3.2 L, Chloride 113 H, Carbon Dioxide 19.0 L, Anion Gap 8, BUN 51 H, C reatinine 3.77 H, Estim Creat Clear Calc 21.32, Est GFR (MDRD) Af Amer 21 L, Est GFR (MDRD) Non-Af 17 L, BUN/Creatinine Ratio 13.5, Glucose 123 H, Calcium 8.6 12/29/23 06:16: POC Glucose 115 H Micro: Microbiology 12/22/23 17:05 Blood Culture (Wb) - Left Wrist Blood Culture - Final No growth in 5 days. 12/23/23 09:02 Sputum, Induced/Lukens Gram Stain - Final 12/23/23 09:02 Sputum, Induced/Lukens Respiratory Culture - Final 12/23/23 11:25 Wound - Left Foot Gram Stain - Final 12/23/23 11:25 Wound - Left Foot Wound Culture - Final Meth. resistant Staph. aureus 12/21/23 16:27 Sputum, Induced/Lukens Gram Stain - Final 12/21/23 16:27 Sputum, Induced/Lukens Respiratory Culture - Final Mixed normal respiratory calista. No Streptococcus pneumoniae, beta-hemolytic Streptococcus or Staphylococcus aureus isolated. 12/23/23 10:45 Nasal Secretion MRSA (PCR) - Final 12/21/23 16:17 Stool Stool Occult Blood (ELISABETH) - Final 12/21/23 14:47 Mucosa - Nose SARS-CoV-2, Influenza & RSV (PCR) - Final ABG Data ABG results: ABG 12/28/23 15:17 Specimen Type ART Sample Site L Radial pH 7.34 L Bicarbonate Actual 17.8 L Total CO2 19 Base Excess -8 L O2 Saturation 93 L O2 % 28.0 ABG pCO2 33.2 L ABG pO2 71 L Bradley Test Positive O2 Delivery Device Cannula Vent Mode Not entered Radiography Diagnostic Testing: Radiology Impression Chest X-Ray 12/29/23 14:22 IMPRESSION: Bilateral infiltrates and atelectatic changes more dense and confluent in the left lung base. Electronically Signed: Chan Horowitz MD at 8:11 EST , Physical Exam Narrative no obvious distress no pallor no icterus no JVD s1s2 no murmurs diminished lung sounds bilaterally with faint rales abdomen soft no organomegaly non-pitting, generalized b/l lower extremity edema Pure wick external Lee catheter with large amount of clear yellow urine in canister Assessment & Plan Assessment/Plan (1) Acute kidney injury: PLAN: Impression/Plan: The patient is a 68-year-old male with past history of type 2 diabetes mellitus, hypertension, COPD, EBONY, PAD, and nephrolithiasis. The patient was admitted to hospital on 12/21/2023 with acute hypoxic respiratory failure. Nephrology is following for CHARLIE. - Acute kidney injury. Baseline creatinine was normal but that was about 2 years ago. Patient presented to hospital with serum creatinine of 3.01 mg/dL. Renal function has slowly worsened with SCr peak 4.18 mg/dL on 12/24 and 12/26. Improvement in renal function again today with SCr 3.77. No urgent need for kidney replacement therapy today. K+ low and bicarb acceptable. Renal ultrasound with echogenic right kidney but no hydronephrosis, suspect patient has some underlying CKD. Urinalysis did not show any microscopic hematuria. Urine protein creatinine ratio is 3.94 g/g. Proteinuria is likely due to diabetic kidney disease. Since admission lisinopril and hydrochlorothiazide as been on hold. Patient aware to avoid NSAIDs. Patient did receive trial of IV fluids but now off IV fluids. Received Lasix yesterday as patient had moist lung sounds, responded well with Lasix, urine output increased with improvement in renal function. Received Lasix again today. Patient started on diet yesterday, appetite is poor with intake low therefore we will evaluate for diuretic tomorrow. Labs ordered and will decide on diuretic day by day following renal function and patient assessment. CXR from yesterday reviewed, b/l infiltrates, greater on left side. - hypokalemia; replacement ordered again today. Will start daily potassium chloride replacement. Patient does not need renal diet restrictions - Hyperphosphatemia secondary to CHARLIE on probable CKD. Phosphorus 6.2. Started on sevelamer one with meals. Will check phosphorus level tomorrow. - Acute hypoxic respiratory failure. Etiology unclear. Extubated 12/23. History of COPD and chronic diastolic congestive heart failure. Last CXR from 12/21: infiltrates L>R, repeat chest x-ray still showing infiltrates greater on left side. Acute left maxillary sinusitis, on Zosyn. Now on nasal canula. Received Lasix 12/27 and 12/28. -Hypertension; currently receiving metoprolol twice daily and furosemide. Blood pressure is elevated today, will start amlodipine. Discussed nephrology plan with Dr. Lees
[2023-12-29] MEDS: amLODIPine 10 MG Tablet PO (12:13)
[2023-12-29] MEDS: Insulin Lispro 100 UNIT/ML INSULN.PEN SC ×2 (12:13→21:51)
[2023-12-29 12:41] LABS: Bedside Glucose 159 mg/dL (74-106)
--- NOTE | 2023-12-29 14:22 | RAD_ITS ---
INDICATION: Dyspnea EXAMINATION/TECHNIQUE: X-RAY - XR Chest 2 Views COMPARISON: Prior study dated: 12/22/2023 FINDINGS: LINES/DEVICES: None. LUNGS: Left lower lung consolidation obscuring the left hemidiaphragm new since the previous exam. Patchy infiltrates in the right upper and lower lung zones. Trace of left pleural effusion. MEDIASTINUM AND CARDIOVASCULAR STRUCTURES: The cardiac silhouette is somewhat enlarged. BONES AND SOFT TISSUES: Unremarkable. RAD/Chest PA and Lateral IMPRESSION: Bilateral infiltrates and atelectatic changes more dense and confluent in the left lung base. Electronically Signed: Chan Horowitz MD at 8:11 EST ,
--- NOTE | 2023-12-29 14:36 | CHAPLAIN ---
Type of Pastoral Visit ___ Initial Visit _x__ Follow-up Visit ___ On-call Visit ___ General Patient Visit ___ Spiritual Assessment ___ Family Conference ___ Bereavement ___ Rapid Response ___ Code Blue ___ Other (describe below) Pastoral Care Referral From _x__ Patient ___ Family ___ Nurse ___ Physician ___ Pipe Welder ___ Mobile Mechanic ___ Other (describe below) Sacrament/Intervention _x__ Active listening ___ Anointing ___ Buddhist ___ Bereavement ___ Communion ___ Suzette exploration ___ ___ Life review _x__ Prayer ___ Reconciliation ___ Sacrament of Sick _x__ Supportive presence ___ Wedding ___ Other (describe below) Pastoral Comments patient was seen in ICU previously and in ED before that; pt welcomes the visit but admits that he is feeling very tired; pt is expressive of gratitude for the visit to check on him; pt asks for prayer; pt also acknowledges concern for his spouse who is also facing health issues
[2023-12-29] MEDS: Gabapentin 100 MG Capsule PO (17:10)
[2023-12-29] MEDS: Albuterol 2.5 MG/3 ML VIAL.NEB. INHALATION (20:34)
[2023-12-29] MEDS: Amitriptyline 25 MG Tablet 50 MG PO (21:51)
[2023-12-29] MEDS: 0.9% Saline Lock 10 ML Syringe IV (21:56)
--- NOTE | 2023-12-29 22:16 | CPS ---
Patient refused PAP therapy for night time use.
[2023-12-29 23:49] LABS: Bedside Glucose 197 mg/dL (74-106)
[2023-12-30] VITALS (26 sets, daily range): BP systolic 144–179; BP diastolic 71–86; PULSE 65–81; RESP 12–28; TEMP 36.2–37.2; O2SAT 86–94
[2023-12-30] MEDS: hydrALAZINE 20 MG/ML Vial 10 MG IV (03:31)
[2023-12-30] MEDS: oxyCODONE 5 MG Tablet 10 MG PO ×2 (04:52→20:05)
[2023-12-30] MEDS: Heparin Injection (Vial) 5,000 UNIT/ML VIAL 5000 UNIT SC ×3 (04:54→21:39)
[2023-12-30] MEDS: Albuterol 2.5 MG/3 ML VIAL.NEB. INHALATION ×4 (05:08→23:10)
[2023-12-30 05:11] LABS: Absolute Lymphocyte Count 0.47 X10^3/uL (0.83-4.51); Absolute Neutrophil Count 11.5 X10^3/uL (2.0-7.7); Basophil# 0.06 X10^3/uL; Basophil% 0.5 % (0-1); Eosinophil# 0.21 X10^3/uL; Eosinophils% 1.6 % (0-5); Hematocrit 28.8 % (40-54); Hemoglobin 9.1 g/dL (13.0-16.5); Lymphocyte # 0.47 X10^3/ul (0.83-4.51); Lymphocyte % 3.6 % (19-41); Mean Corp Hgb Conc 31.6 g/dL (32-36); Mean Corpuscular Hgb 31.5 pg (27.0-32.0); Mean Corpuscular Volume 99.7 fL (80-94); Mean Platelet Vol. 10.2 fl (6.2-12.0); Monocyte# 0.96 X10^3/uL; Monocyte% 7.3 % (0-10); NRBC Flagged by Analyzer 0 % (0-5); Neutrophil # 11.46 X10^3/uL (2.7-7.7); Neutrophil % 86.5 % (47-70); POSITIVE DIFFERENTIAL YES; Platelet Count 236 K/mm3 (150-450); RBC Distribution Width CV 15.7 % (11.6-14.6); RBC Distribution Width SD 57.4 fl (35.1-43.9); Red Blood Count 2.89 M/mm3 (4.6-6.2); White Blood Count 13.2 K/mm3 (4.4-11.0)
[2023-12-30 05:32] LABS: Phosphorus 4.4 mg/dL (2.5-4.9)
[2023-12-30 05:33] LABS: Anion Gap 9 (5-15); BUN 50 mg/dL (7-18); Calcium,Total 8.8 mg/dL (8.5-10.1); Chloride 111 mmol/L (98-107); Creatinine, Serum 3.57 mg/dL (0.70-1.30); EST Glomerular Filtration Rate 18 mL/min (>60); Est Glom Filt Rate - Afr Amer 22 mL/min (>60); Estimated Creatinine Clearance 22.51 ml/min; Glucose 145 mg/dL (74-106); Potassium 3.1 mmol/L (3.5-5.1); Sodium Level 139 mmol/L (136-145)
[2023-12-30 06:27] LABS: Bedside Glucose 130 mg/dL (74-106)
[2023-12-30 06:37] LABS: Bedside Glucose 139 mg/dL (74-106)
[2023-12-30] MEDS: SEVELAMER CARBONATE 800 MG TABLET PO ×2 (08:25→11:49)
[2023-12-30] MEDS: Potassium Chloride Oral Tablet 20 MEQ 40 MEQ PO (08:25)
[2023-12-30] MEDS: Aspirin 81 MG TAB.CHEW PO (08:26)
--- NOTE | 2023-12-30 09:53 | PN.HOSP_ITS ---
Reason for Visit Reason for Visit: Diagnoses Anemia, unspecified (12/21/23) Heart failure, unspecified (12/21/23) Acute respiratory failure with hypoxia (12/21/23) Acute kidney failure, unspecified (12/21/23) Subjective Subjective Patient earlier today still with some labored breathing but overall still doing better, had refused BiPAP overnight however so was using it during a nap during the day. Discussed with patient about transfer to higher level of care due to the pericardial effusion after discussion with her operations supervisor and he was agreeable. Called [facility] transfer line and they took patient's information and reason for transfer, they reported they would discuss with [facility] hospitalist baldemar and then call me back. Called back and connected to [facility] Aline Chávez who accepted the patient. Went to tell patient of this and when I arrived on the floor patient had been working with speech therapy and was drinking some water and then desaturated with concerns for an aspiration event. Patient made n.p.o. and was 86% and placed on BiPAP. Called [facility] transfer line back and spoke with Jr again regarding the update and status. Patient had just got a bed on a regular floor and was informed that continuous BiPAP will need the ICU. Given patient was just placed on BiPAP and it was unclear if this was going to be continuous if he would be taken off it was advised to call back in 2 to 3 hours with update on patient's status and feels off BiPAP to go to floor if not he would need to be retriaged. Charge nurse called by transfer line with update in bed status, discussed the patient currently being on BiPAP and current plan. Kamini from the transfer center called back requesting to speak with me about patient's status. Discussed what Jr and I had talked about when I called back about patient's status. She to advised to call back with patient update so can be retriaged if necessary for appropriate level of care or if he is still appropriate for regular floor. Discussed with patient and his regarding transfer, patient initially was agreeable earlier in the day when I went back to speak with him about acceptance he was upset and was worried about his not being able to come visit him due to her limitations with driving. Discussed with patient's at length and she also discussed with patient, ultimately patient and agreeable to transfer and understand the reasoning behind this. Will update [facility] on patient's status to determine if patient needs to be retriaged Objective Data Objective Data Vital Signs: Vital Signs Temp Pulse Resp BP Pulse Ox O2 Del Method O2 Flow Rate 98 F 76 24 H 149/86 H 90 Nasal Cannula 2 12/30/23 03:15 12/30/23 05:08 12/30/23 05:08 12/30/23 04:39 12/30/23 04:20 12/30/23 08:00 12/30/23 08:00 FiO2 30 12/30/23 03:15 Oxygen Flow Rate (L/min) 2 Oxygen Delivery Method Nasal Cannula Weight: 91.4 kg Body Mass Index (BMI) 28.2 Intake & Output: Intake and Output for Last 24 Hours 12/28/23 12/29/23 12/30/23 23:59 23:59 23:59 Intake Total 1017.71 / 1017.71 1420 / 1420 100 / 100 Output Total 1200 / 2150 3400 / 3400 250 / 250 Balance -182.29 / -1132.29 -1979 / -1979 -150 / -150 Lab / Micro Data 12/30/23 04:35 12/30/23 04:35 Labs: Laboratory Results - last 24 hr 12/29/23 12:12: POC Glucose 159 H 12/29/23 17:19: POC Glucose 130 H 12/29/23 21:49: POC Glucose 197 H 12/30/23 04:35: WBC 13.2 H, RBC 2.89 L, Hgb 9.1 L, Hct 28.8 L, MCV 99.7 H, MCH 31.5, MCHC 31.6 L, RDW Std Deviation 57.4 H, RDW Coeff of Khris 15.7 H, Plt Count 236, MPV 10.2, Immature Gran % (Auto) 0.500, Neut % (Auto) 86.5 H, Lymph % (Auto) 3.6 L, [place] % (Auto) 7.3, Eos % (Auto) 1.6, Baso % (Auto) 0.5, Absolute Neuts (auto) 11.5 H, Absolute Lymphs (auto) 0.47 L, Nucleated RBC % 0, Sodium 139, Potassium 3.1 L, Chloride 111 H, Carbon Dioxide 19.0 L, Anion Gap 9, BUN 50 H, Creatinine 3.57 H, Estim Creat Clear Calc 22.51, Est GFR (MDRD) Af Amer 22 L, Est GFR (MDRD) Non-Af 18 L, BUN/Creatinine Ratio 14.0, Glucose 145 H, Calcium 8.8, Phosphorus 4.4 12/30/23 06:19: POC Glucose 139 H Micro: Microbiology 12/22/23 17:05 Blood Culture (Wb) - Left Wrist Blood Culture - Final No growth in 5 days. 12/23/23 09:02 Sputum, Induced/Lukens Gram Stain - Final 12/23/23 09:02 Sputum, Induced/Lukens Respiratory Culture - Final 12/23/23 11:25 Wound - Left Foot Gram Stain - Final 12/23/23 11:25 Wound - Left Foot Wound Culture - Final Meth. resistant Staph. aureus 12/21/23 16:27 Sputum, Induced/Lukens Gram Stain - Final 12/21/23 16:27 Sputum, Induced/Lukens Respiratory Culture - Final Mixed normal respiratory calista. No Streptococcus pneumoniae, beta-hemolytic Streptococcus or Staphylococcus aureus isolated. 12/23/23 10:45 Nasal Secretion MRSA (PCR) - Final 12/21/23 16:17 Stool Stool Occult Blood (ELISABETH) - Final 12/21/23 14:47 Mucosa - Nose SARS-CoV-2, Influenza & RSV (PCR) - Final Radiography Diagnostic Testing: Radiology Impression Echocardiogram 12/29/23 08:44 Interpretation Summary Normal LV size. Left ventricular systolic function is normal. The left ventricular ejection fraction is 55 %. Moderate (1.0-2.0 cm) pericardial effusion. There are no echocardiographic indications of cardiac tamponade. In comparison to the previous echocardiogram the above findings are essentially unchanged overall but mildly loculated around the left ventricle and in some views appears to be mildly worse Ordering Physician: Linette Lees Performed By: Josue Brown and Student Physical Exam Narrative Physical exam on initial evaluation this a.m. : general: Alert, oriented, appears more comfortable today HEENT: Atraumatic, normocephalic Eyes: Anicteric, normal conjunctiva, extraocular movements grossly intact Neck: Supple Respiratory: Respiratory effort improved from yesterday, crackles improving Cardiovascular: Regular rate GI: Soft, nontender, nondistended Extremities: 1+ bilateral lower extremity pitting edema Musculoskeletal: Moving all extremities Neuro: No overt focal neurological deficits Skin: No rashes appreciated Psych: Cooperative On reevaluation at 1700 patient with increased work of breathing and crackles bilaterally on BiPAP after presumed aspiration event Assessment & Plan Assessment/Plan (1) Acute kidney injury: PLAN: Plan # Acute hypercapnic and hypoxemic respiratory failure -Patient did initially require intubation and is now status post extubation -There is concern for CHF exacerbation versus pneumonia however patient had sputum production and fevers and did not seem overtly volume overloaded so he was treated for pneumonia -Echocardiogram 12/22/2023 demonstrated EF 60% and stage I diastolic dysfunction -Patient now with increasing weight as well as crackles and some peripheral edema and appears fluid overloaded does have some increased work of breathing. Discussed with nephrology the patient started on IV Lasix -12/28: X-ray with bilateral infiltrates left greater than right of unclear significance or duration, suspect it is a component of fluid overload with atelectasis and patient has been treated for pneumonia as well and is on Zosyn. continue to encourage incentive spirometer, Pep therapy ordered -12/29: Respiratory status has still been fairly poor overall and received 2 days of 60 of IV Lasix, today after discussion with nephrology patient given another 40 of IV. Despite having poor respiratory status he was stable however this evening when drinking water supervised he desaturated and required BiPAP placement. Will continue respiratory support. If unable to wean BiPAP will need retriage check with worsening # Moderate pericardial effusion -Measures between 1 and 2 cm posterior to left ventricle approximately 2.6 cm, this was seen 12/22/2023 there is no evidence of tamponade -IV Lasix resuming -12/28: Echocardiogram was from 12/21, limited echo repeated and showed the effusion is essentially unchanged overall but mildly loculated around the left ventricle and in some views appears to be mildly worse. No evidence or signs of impending tamponade. Patient diuresed yesterday and again today. -12/29: Discussed with operations supervisor who read echo, it is unclear why patient has a pericardial effusion and given the unclear nature with difficulty aggressively diuresing due to kidney function there is concerned that while he does not presently have signs or symptoms of tamponade that over time this could progress and we do not have the ability to treat this if that were to happen and he recommended transfer to higher level of care. See subjective # CHARLIE -Creatinine normal roughly 2 years ago and when he presented to the hospital creatinine 3.01 however no values available between -Renal function had been worsening up to 4.18, today slightly down to 3.83 -Nephrology on consult -Holding lisinopril and hydrochlorothiazide -Has received some IV fluids but appears overloaded at this time no further IV fluids and patient will receive Lasix -If kidney function worsens we will need to revisit discussion about dialysis with nephrology -12/28: Despite IV Lasix for patient's breathing and volume overload, creatinine did slightly improve again today. 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 -Being followed by wound care -Wounds appear to be healing well without any significant drainage, there was a culture from 12/22 from a left foot wound that grew MRSA however patient has not had a leukocytosis, wounds do not appear infected, afebrile and has not been treated for any antibiotics for this -12/28: Wound care continue to monitor -12/29: Continues to improve and without clinical evidence of infection #Left maxillary sinusitis -ENT evaluated and noted acute left maxillary sinusitis and recommended continuing IV antibiotics and that he will need discharged on antibiotics and follow-up with ENT on an outpatient basis -12/28: Patient continued on Zosyn -12/29: Ultimately will be switched to p.o. on discharge # Chronic pain -Minimize sedating medications were possible given patient's altered mental status on arrival -Patient alternating with oxycodone and acetaminophen, also on Elavil -Will need to proceed cautiously to avoid oversedation but do not want to undertreat pain if possible -12/28: Continues to have improvement in kidney function however given low creatinine clearance and multiple medications the renal clearance will need to start very low with any reinitiation of pain medication. An external fill history he had not filled anything in a while and then on the fifth of this month he filled amitriptyline, Flexeril, and gabapentin 600 3 times daily from a physician speech language pathology assistant in the [facility]. Will start 100 daily of gabapentin and can consider uptitrating depending on patient's level of alertness and response -12/29: Started on 100 of gabapentin and has Tylenol and oxycodone as needed, also on amitriptyline 50 nightly #Type 2 diabetes mellitus -Glucose checks and sliding scale insulin -12/28: Has been fairly well-controlled -12/29: Continue to monitor but continues to have overall adequate control for acute hospitalization # Dysphagia -There was concern for pharyngeal mass but CT did not reveal mass and ENT did not feel pharyngeal mass was present as well -Speech therapy working with patient -Patient with diet recommendations in place after cookie swallow -GI consult recommended but is felt it could be appropriate for outpatient consultation -12/28: Continue current diet and working with speech, outpatient GI evaluation -12/29: Thus far seems to be tolerating diet well #Depression/anxiety -Continue home medications -Patient has reported some increased anxiety, discussed dangers of oversedation with benzodiazepines especially given his concomitant opioid use, will start very low-dose of BuSpar with kidney function -12/28: Continue low-dose BuSpar and sertraline -12/29: Ultimately may be able to uptitrate BuSpar however given kidney function would do so with caution #DVT ppx: Heparin subcu Linette Lees MD Time spent in the patient's overall evaluation,decision-making process, review of diagnostic data, adjustment of management, discussion with other providers, nursing nursing and ancillary staff involved in patient's care documentation, 65 Minutes Charges/Coding Visit Charges Inpatient E&M: [id number] [place] [id number]
[2023-12-30] MEDS: Senna Tablet 1 TABLET PO (10:32)
[2023-12-30] MEDS: Sertraline 50 MG Tablet 150 MG PO (10:32)
[2023-12-30] MEDS: Metoprolol Tartrate 50 MG Tablet PO ×2 (10:32→21:40)
[2023-12-30] MEDS: amLODIPine 10 MG Tablet PO (10:33)
[2023-12-30] MEDS: Gabapentin 100 MG Capsule PO (10:33)
[2023-12-30] MEDS: Sodium Chloride 0.65% 1 SPRAY SPRAY.BTL 2 SPRAY NASAL (10:34)
[2023-12-30] MEDS: busPIRone 5 MG Tablet 2.5 MG PO ×2 (10:34→21:37)
[2023-12-30] MEDS: Piperacil/Tazobactam 3.375 GM in 0.9% Normal Saline (50mL MB+) 50 ML IV ×3 (10:45→23:40)
[2023-12-30] MEDS: Pantoprazole Sodium 40 MG in 0.9% Normal Saline (100mL MB+) 100 ML 330 MG IV ×2 (10:45→21:53)
[2023-12-30] MEDS: Insulin Lispro 100 UNIT/ML INSULN.PEN SC ×2 (11:49→17:21)
[2023-12-30 12:18] LABS: Bedside Glucose 255 mg/dL (74-106)
--- NOTE | 2023-12-30 12:29 | CASEMGMT ---
[facility] if [facility] is recommended is as follows: [facility], [facility], [place], [facility], [facility], [facility], [facility], [place], [facility]), and . Isela Merchant, Discharge Planning Asst.
--- NOTE | 2023-12-30 14:55 | PCM.PN.REN ---
Subjective Subjective Sitting up in bed, on Bipap. Possible transfer to tertiary center when bed available. Objective Data Objective Data Vital Signs: Vital Signs Temp Pulse Resp BP Pulse Ox O2 Del Method O2 Flow Rate 97.1 F L 81 22 H 179/77 H 93 Nasal Cannula 4 12/30/23 10:00 12/30/23 12:25 12/30/23 12:25 12/30/23 10:32 12/30/23 12:00 12/30/23 10:47 12/30/23 10:47 FiO2 30 12/30/23 12:00 Oxygen Flow Rate (L/min) 4 Oxygen Delivery Method Nasal Cannula Weight: 91.4 kg Body Mass Index (BMI) 28.2 Intake & Output: Intake and Output for Last 24 Hours 12/28/23 12/29/23 12/30/23 23:59 23:59 23:59 Intake Total 1017.71 / 1017.71 1420 / 1420 930 / 930 Output Total 1200 / 2150 3400 / 3400 950 / 950 Balance -182.29 / -1132.29 -1979 / -1979 - Lab / Micro Data 12/30/23 04:35 12/30/23 04:35 Labs: Laboratory Results - last 24 hr 12/29/23 17:19: POC Glucose 130 H 12/29/23 21:49: POC Glucose 197 H 12/30/23 04:35: WBC 13.2 H, RBC 2.89 L, Hgb 9.1 L, Hct 28.8 L, MCV 99.7 H, MCH 31.5, MCHC 31.6 L, RDW Std Deviation 57.4 H, RDW Coeff of Khris 15.7 H, Plt Count 236, MPV 10.2, Immature Gran % (Auto) 0.500, Neut % (Auto) 86.5 H, Lymph % (Auto) 3.6 L, [place] % (Auto) 7.3, Eos % (Auto) 1.6, Baso % (Auto) 0.5, Absolute Neuts (auto) 11.5 H, Absolute Lymphs (auto) 0.47 L, Nucleated RBC % 0, Sodium 139, Potassium 3.1 L, Chloride 111 H, Carbon Dioxide 19.0 L, Anion Gap 9, BUN 50 H, Creatinine 3.57 H, Estim Creat Clear Calc 22.51, Est GFR (MDRD) Af Amer 22 L, Est GFR (MDRD) Non-Af 18 L, BUN/Creatinine Ratio 14.0, Glucose 145 H, Calcium 8.8, Phosphorus 4.4 12/30/23 06:19: POC Glucose 139 H 12/30/23 11:44: POC Glucose 255 H Micro: Microbiology 12/22/23 17:05 Blood Culture (Wb) - Left Wrist Blood Culture - Final No growth in 5 days. 12/23/23 09:02 Sputum, Induced/Lukens Gram Stain - Final 12/23/23 09:02 Sputum, Induced/Lukens Respiratory Culture - Final 12/23/23 11:25 Wound - Left Foot Gram Stain - Final 12/23/23 11:25 Wound - Left Foot Wound Culture - Final Meth. resistant Staph. aureus 12/21/23 16:27 Sputum, Induced/Lukens Gram Stain - Final 12/21/23 16:27 Sputum, Induced/Lukens Respiratory Culture - Final Mixed normal respiratory calista. No Streptococcus pneumoniae, beta-hemolytic Streptococcus or Staphylococcus aureus isolated. 12/23/23 10:45 Nasal Secretion MRSA (PCR) - Final 12/21/23 16:17 Stool Stool Occult Blood (ELISABETH) - Final 12/21/23 14:47 Mucosa - Nose SARS-CoV-2, Influenza & RSV (PCR) - Final Radiography Diagnostic Testing: Radiology Impression Echocardiogram 12/29/23 08:44 Interpretation Summary Normal LV size. Left ventricular systolic function is normal. The left ventricular ejection fraction is 55 %. Moderate (1.0-2.0 cm) pericardial effusion. There are no echocardiographic indications of cardiac tamponade. In comparison to the previous echocardiogram the above findings are essentially unchanged overall but mildly loculated around the left ventricle and in some views appears to be mildly worse Ordering Physician: Linette Lees Performed By: Josue Brown and Student Physical Exam Narrative alert, oriented s1s2 no murmurs diminished lung sounds bilaterally with scattered rales abdomen soft no organomegaly pitting edema b/l lower extremity Pure wick external Lee catheter with large amount of clear yellow urine in canister Assessment & Plan Assessment/Plan (1) Acute kidney injury: PLAN: Impression/Plan: The patient is a 68-year-old male with past history of type 2 diabetes mellitus, hypertension, COPD, EBONY, PAD, and nephrolithiasis. The patient was admitted to hospital on 12/21/2023 with acute hypoxic respiratory failure. Nephrology is following for CHARLIE. - Acute kidney injury on possible CKD. Baseline creatinine was normal but that was about 2 years ago. Patient presented to hospital with serum creatinine of 3.01 mg/dL. Renal function has slowly worsened with SCr peak 4.18 mg/dL on 12/24 and 12/26. Improvement in renal function again today with SCr 3.57. No urgent need for kidney replacement therapy today. K+ low and bicarb acceptable. Patient received lasix 60mg IV last 2 days with clinical improvement and good urine output (at least 3 L urine output yesterday). Will order lasix 40mg IV x1 dose now. Increase oral potassium. Lab work ordered for the morning. - Acute hypoxic respiratory failure. Etiology unclear. Extubated 12/23. History of COPD and chronic diastolic congestive heart failure. Acute left maxillary sinusitis, on Zosyn. -Hypertension; improvement in blood pressures with addition of amlodipine. Will follow blood pressure trends -Possible transfer to [facility] for further evaluation echo findings: moderate pericardial effusion, per echo no signs of impending tamponade, mildly loculated around left ventricle, some views appear mildly worse.
[2023-12-30] MEDS: Furosemide 40 MG/4 ML Vial IV (15:14)
[2023-12-30] MEDS: 0.9% Saline Lock 10 ML Syringe IV (15:14)
[2023-12-30] MEDS: Potassium Chloride Oral Soln 20 MEQ/15 ML UDC PO (15:48)
[2023-12-30 17:55] LABS: Bedside Glucose 189 mg/dL (74-106)
--- NOTE | 2023-12-30 19:21 | PN.HOSP_ITS ---
Hospitalist Note Patient taken off of BiPAP around 640, evaluated patient and at bedside after he was taken off of BiPAP and he was on 5 L nasal cannula, even while talking he maintain sats around 92% and breathing was similar to how it was this a.m. (some increased work of breathing, overall better from previous, and not in acute respiratory distress.) updated that patient was 93% on 5 L resting in bed with no increased work of breathing at 7pm, discussed again with charge nurse around 720 regarding patient's stability and not requiring continuous BiPAP or having escalating O2 requirements. Called transfer center with the update the patient not requiring continuous BiPAP and is on 5 L with saturations of 93% and is not in respiratory distress and has been maintaining this since around 640 without any signs of decompensation. Do feel patient is appropriate for stepdown unit and this was communicated, patient to be transferred to [facility].
--- NOTE | 2023-12-30 19:26 | PCM.DC.SUM ---
Providers Date of Admission: 12/21/23 Date of Discharge: 12/31/23 Primary Care Physician: Dr. Luis Starr, Consultations 12/21/23 18:25 Consult: [employer] Operator / Pulmonary Medicine Routine Consulting Provider: Cornelio Weber Reason for Consult: acute resp failure EMERGENT Consult: No MD Notified: Yes Date Notified: 12/21/23 Time Notified: 18:25 Method of Notification: Verbal 12/22/23 10:04 Consult: Onc/Wound/information systems security specialist Routine Comment: Comments:: Pressure ulcers to bilateral lateral ankles 12/23/23 10:28 Consult: Nephrology Routine Consulting Provider: Sedrick Ashley Reason for Consult: CHARLIE EMERGENT Consult: No MD Notified: Yes Date Notified: 12/23/23 Time Notified: 11:58 Method of Notification: Answering Service 12/26/23 15:38 Consult: ENT Routine Consulting Provider: Dayton Sotomayor Reason for Consult: Abnormal swallowing study indicating pharyngeal mass EMERGENT Consult: No MD Notified: Yes Date Notified: 12/26/23 Time Notified: 10:00 Method of Notification: Verbal Reason For Visit: RESPIRATORY FAILURE WITH HYPOXIA, ACUTE CHF Diagnosis Discharge Diagnosis (1) Acute kidney injury: Status: Acute Code(s): N17.9 - Acute kidney failure, unspecified Plan # Acute hypercapnic and hypoxemic respiratory failure secondary to acute exacerbation of heart failure preserved ejection fraction and pneumonia # Moderate pericardial effusion # CHARLIE #HTN # 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 #Left maxillary sinusitis # Chronic pain #Type 2 diabetes mellitus # Dysphagia #Depression/anxiety Medications at Discharge Home Medications nitroglycerin 0.4 mg sublingual tablet 0.4 mg sublingual PRN PRN pain 04/23/16 metoprolol tartrate 50 mg tablet 50 mg PO BID heart rate 07/10/18 albuterol sulfate 90 mcg/actuation aerosol inhaler 2 puff inhalation Q4H PRN sob 16 days #18 grams 07/19/18 hydrochlorothiazide 25 mg tablet 25 mg PO DAILY diuretic #90 tabs 08/10/18 acetaminophen 500 mg tablet 500 mg PO Q4H PRN Headache 08/02/20 aspirin 81 mg tablet,delayed release (Adult Low Dose Aspirin) 81 mg PO DAILY heart health 08/02/20 cholecalciferol (vitamin D3) 1,250 mcg (50,000 unit) capsule 1,250 mcg PO QWEEK supplement #12 caps 08/02/20 gabapentin 600 mg tablet 600 mg PO TID nerve pain 08/02/20 insulin NPH-regular 70-30 U-100 insulin 100 unit/mL subcutaneous pen 14 unit subcut BID 08/02/20 lisinopril 40 mg tablet 40 mg PO DAILY blood pressure 08/02/20 methadone 10 mg tablet 10 mg PO BID PRN Pain 08/02/20 sertraline 100 mg tablet 150 mg PO DAILY mental health 08/02/20 potassium chloride 20 mEq tablet,extended release 20 meq PO BID #60 tabs 07/29/21 amitriptyline 50 mg tablet 50 - 100 mg PO QHS 12/21/23 cyclobenzaprine 10 mg tablet 10 mg PO TID PRN PRN muscle spasm 12/21/23 sertraline 50 mg tablet 150 mg PO DAILY 12/21/23 Hospital Course Summary of Care Provided Hospital Course: 68-year-old male history of diabetes, hypertension, chronic pain, right ICA stenosis who presented to [facility] 12/21/2023 with altered mental status and shortness of breath, he was hypoxic and hypercapnic and was suspected to be fluid overloaded. He was placed on BiPAP but failed BiPAP and was intubated in the ICU. He received IV diuresis and antibiotics for presumed pneumonia and was extubated 12/23. Patient also had significant elevation in creatinine however no value for the past 2 years so is unclear if this was CHARLIE on CKD or all CHARLIE. He had echo 12/21 with stage I diastolic dysfunction, EF of 60% and a moderate pericardial effusion. Patient continued to have oxygen requirement and was intermittently diuresed and consultation with nephrology due to his poor renal function. Renal function was slowly improving and respiratory status stable with patient on BiPAP nightly and 2 to 4 L nasal cannula during the day. Repeat echocardiogram ordered 12/29/2023 to assess effusion which showed overall stable however possibly worsened in some views. Cardiology contacted after echo read and recommended since we do not know why there is the effusion and did not have the ability to aggressively diurese with his kidney function that there were concerns that it could progress to tamponade since it cannot be acutely addressed and if patient did develop tamponade we have no way to treat this and he would need emergently transferred so cardiology recommended transfer to a higher level of care. Events from 12/29: Patient earlier today still with some labored breathing but overall still doing better, had refused BiPAP overnight however so was using it during a nap during the day. Discussed with patient about transfer to higher level of care due to the pericardial effusion after discussion with her pharmacy salesperson and he was agreeable. Called [facility] transfer line and they took patient's information and reason for transfer, they reported they would discuss with [facility] hospitalist baldemar and then call me back. Called back and connected to [facility] Aline Chávez who accepted the patient. Went to tell patient of this and when I arrived on the floor patient had been working with speech therapy and was drinking some water and then desaturated with concerns for an aspiration event. Patient made n.p.o. and was 86% and placed on BiPAP. Called [facility] transfer line back and spoke with Jr again regarding the update and status. Patient had just got a bed on a regular floor and was informed that continuous BiPAP will need the ICU. Given patient was just placed on BiPAP and it was unclear if this was going to be continuous if he would be taken off it was advised to call back in 2 to 3 hours with update on patient's status and feels off BiPAP to go to floor if not he would need to be retriaged. Charge nurse called by transfer line with update in bed status, discussed the patient currently being on BiPAP and current plan. Kamini from the transfer center called back requesting to speak with me about patient's status. Discussed what Jr and I had talked about when I called back about patient's status. She to advised to call back with patient update so can be retriaged if necessary for appropriate level of care or if he is still appropriate for regular floor. Discussed with patient and his regarding transfer, patient initially was agreeable earlier in the day when I went back to speak with him about acceptance he was upset and was worried about his not being able to come visit him due to her limitations with driving. Discussed with patient's at length and she also discussed with patient, ultimately patient and agreeable to transfer and understand the reasoning behind this. Will update [facility] on patient's status to determine if patient needs to be retriaged. Update: 12/30 1919 Patient taken off of BiPAP around 1840, evaluated patient and at bedside after he was taken off of BiPAP and he was on 5 L nasal cannula, even while talking he maintain sats around 92% and breathing was similar to how it was this a.m. (some increased work of breathing, overall better from previous, and not in acute respiratory distress.) updated that patient was 93% on 5 L resting in bed with no increased work of breathing at 7pm, discussed again with charge nurse around 720 regarding patient's stability and not requiring continuous BiPAP or having escalating O2 requirements. Called transfer center with the update the patient not requiring continuous BiPAP and is on 5 L with saturations of 93% and is not in respiratory distress and has been maintaining this since around 640 without any signs of decompensation. Do feel patient is appropriate for stepdown unit and this was communicated, patient to be transferred to [facility]. Update: 12/29 2099 [facility] transfer line called to [facility] with Dr. Chávez now that patient off BiPAP. We discussed case with Dr. Chávez and patient was reaccepted. Message PCU charge nurse to inform them of this as well Update: Pt transferred to [facility] on nasal cannula in stable condition 12/30/2023 at 0155 Weight / BMI Weight Weight: 91.4 kg Body Mass Index (BMI) 28.2 ABG / Lab / Microbiology Data 12/30/23 04:35 12/30/23 04:35 Laboratory: Laboratory Results - last 24 hr 12/29/23 17:19: POC Glucose 130 H 12/29/23 21:49: POC Glucose 197 H 12/30/23 04:35: WBC 13.2 H, RBC 2.89 L, Hgb 9.1 L, Hct 28.8 L, MCV 99.7 H, MCH 31.5, MCHC 31.6 L, RDW Std Deviation 57.4 H, RDW Coeff of Khris 15.7 H, Plt Count 236, MPV 10.2, Immature Gran % (Auto) 0.500, Neut % (Auto) 86.5 H, Lymph % (Auto) 3.6 L, [place] % (Auto) 7.3, Eos % (Auto) 1.6, Baso % (Auto) 0.5, Absolute Neuts (auto) 11.5 H, Absolute Lymphs (auto) 0.47 L, Nucleated RBC % 0, Sodium 139, Potassium 3.1 L, Chloride 111 H, Carbon Dioxide 19.0 L, Anion Gap 9, BUN 50 H, Creatinine 3.57 H, Estim Creat Clear Calc 22.51, Est GFR (MDRD) Af Amer 22 L, Est GFR (MDRD) Non-Af 18 L, BUN/Creatinine Ratio 14.0, Glucose 145 H, Calcium 8.8, Phosphorus 4.4 12/30/23 06:19: POC Glucose 139 H 12/30/23 11:44: POC Glucose 255 H 12/30/23 17:18: POC Glucose 189 H Microbiology: Microbiology 12/22/23 17:05 Blood Culture (Wb) - Left Wrist Blood Culture - Final No growth in 5 days. 12/23/23 09:02 Sputum, Induced/Lukens Gram Stain - Final 12/23/23 09:02 Sputum, Induced/Lukens Respiratory Culture - Final 12/23/23 11:25 Wound - Left Foot Gram Stain - Final 12/23/23 11:25 Wound - Left Foot Wound Culture - Final Meth. resistant Staph. aureus 12/21/23 16:27 Sputum, Induced/Lukens Gram Stain - Final 12/21/23 16:27 Sputum, Induced/Lukens Respiratory Culture - Final Mixed normal respiratory calista. No Streptococcus pneumoniae, beta-hemolytic Streptococcus or Staphylococcus aureus isolated. 12/23/23 10:45 Nasal Secretion MRSA (PCR) - Final 12/21/23 16:17 Stool Stool Occult Blood (ELISABETH) - Final 12/21/23 14:47 Mucosa - Nose SARS-CoV-2, Influenza & RSV (PCR) - Final D/C Instructions DC O2, CPAP, BIPAP Needs PSN CPAP & BiPAP: BiPAP & CPAP Settings per PSN Mode BiPAP 12/30/23 16:26 Bipap Delivery Device Face Mask 12/30/23 16:26 BiPAP Inspiratory Pressure 12 12/30/23 16:26 BiPAP Expiratory Pressure 6 12/30/23 16:26 BiPAP Rate 12 12/30/23 16:26 Fraction of Inspired Oxygen ( 30 12/30/23 18:00 FIO2) Additional Home O2 Discharge instructions: No DC home with Oxygen: No Meaningful Use Info Meaningful Use Meaningful Use Diagnoses (Choose all that apply): None applicable Ischemic Stroke Statin Dosing Therapy Reference: STATIN DOSE THERAPY REFERENCE: * Patients > 75 years receive moderate or high dose statin therapy. * Patients 75 years or YOUNGER should receive HIGH intensity statin dose unless contraindicated. You will be required to document reason for non-treatment if statin daily dose does not meet guidelines. HIGH DOSE STATIN THERAPY DAILY Atorvastatin > than or = to 40 mg Rosuvastatin > than or = to 20 mg Amlodipine + Atorvastatin > than or = to 2.5/40 mg Ezetimibe + Simvastatin 10/80 mg Simvastatin 80mg Discharge Plan Admission Admit Date/Time: 12/21/23 16:33 Attending Provider: Linette Lees Primary Care Provider: Luis Starr Consulting Providers: Elliott Duenas; Sedrick Ashley; Dayton Sotomayor; Narendra Kramer Discharge Orders/Prescriptions Prescriptions: No Action albuterol sulfate 90 mcg/actuation HFA aerosol inhaler 2 puff INHALATION Q4H PRN (Reason: sob) 16 Days Qty: 18 Patient Comments: Inhale 2 Puffs as instructed every 4 hours as needed for Wheezing/Shortness of Breath. hydrochlorothiazide 25 mg tablet 25 mg PO DAILY Qty: 90 Patient Comments: TAKE 1 TABLET BY MOUTH EVERY DAY cholecalciferol (vitamin D3) 1,250 mcg (50,000 unit) capsule 1,250 mcg PO QWEEK Qty: 12 Rx Instructions: takes on sundays acetaminophen 500 mg tablet 500 mg PO Q4H PRN (Reason: Headache) gabapentin 600 mg tablet 600 mg PO TID lisinopril 40 mg tablet 40 mg PO DAILY aspirin [Adult Low Dose Aspirin] 81 mg tablet,delayed release (DR/EC) 81 mg PO DAILY insulin NPH and regular human 100 unit/mL (70-30) insulin pen 14 unit subcut BID Patient Comments: STATES BS HAS BEEN LOW AND HAS ONLY BEEN USING 1XD Rx Instructions: 10 units BID with meals nitroglycerin 0.4 MG tablet, sublingual 0.4 mg sublingual PRN PRN (Reason: pain) Patient Comments: chest pain methadone 10 mg tablet 10 mg PO BID PRN (Reason: Pain) Patient Comments: pain metoprolol tartrate 50 MG tablet 50 mg PO BID sertraline 100 mg tablet 150 mg PO DAILY Rx Instructions: Take with 50 mg tab to = 150 mg daily potassium chloride 20 mEq tablet extended release 20 meq PO BID Qty: 60 0RF cyclobenzaprine 10 mg tablet 10 mg PO TID PRN PRN (Reason: muscle spasm) amitriptyline 50 mg tablet 50 - 100 mg PO QHS sertraline 50 mg tablet 150 mg PO DAILY Patient Comments: TAKES 1 50MG TAB WITH 1 100MG TAB Referrals / Follow Up: Luis Starr DO [Primary Care Provider] - Disposition Disposition (needs filled in before D/C Order can be placed): [facility]
[2023-12-30] MEDS: Amitriptyline 25 MG Tablet 50 MG PO (21:38)
[2023-12-30 23:11] LABS: Bedside Glucose 146 mg/dL (74-106)
[2023-12-31 01:24] VITALS: BP 110/81; PULSE 72; RESP 19; TEMP 36.2; O2SAT 92
== END 2023-12-31 02:08 | disposition short-term general hospital (02) | DRG 208 ==
LOC: ED 16:18 → ICU 18:16 → PCU 12-25 18:00
PROVIDERS: Family Medicine; Internal Medicine; Internal Medicine Critical Care Medicine; Internal Medicine Nephrology; Nurse Practitioner Adult Health; Admitting Provider Hospitalist; Emergency Provider Emergency Medicine; PCP Student in an Organized Health Care Education/Training Program; Visit Provider Internal Medicine
DX: J96.01 Acute respiratory failure with hypoxia (principal); G93.41 Metabolic encephalopathy; L89.513 Pressure ulcer of right ankle, stage 3; L89.523 Pressure ulcer of left ankle, stage 3; J18.9 Pneumonia, unspecified organism; I31.39 Other pericardial effusion (noninflammatory); I13.0 Hypertensive heart and chronic kidney disease with heart failure and stage 1 through stage 4 chronic kidney disease, or unspecified chronic kidney disease; N17.9 Acute kidney failure, unspecified; J98.11 Atelectasis; I50.32 Chronic diastolic (congestive) heart failure; E11.22 Type 2 diabetes mellitus with diabetic chronic kidney disease; J44.9 Chronic obstructive pulmonary disease, unspecified; D63.8 Anemia in other chronic diseases classified elsewhere; F32.A Depression, unspecified; N18.9 Chronic kidney disease, unspecified; I65.21 Occlusion and stenosis of right carotid artery; J96.02 Acute respiratory failure with hypercapnia; D50.9 Iron deficiency anemia, unspecified; E11.622 Type 2 diabetes mellitus with other skin ulcer; E78.5 Hyperlipidemia, unspecified; I25.10 Atherosclerotic heart disease of native coronary artery without angina pectoris; F41.9 Anxiety disorder, unspecified; Z79.4 Long term (current) use of insulin; F17.200 Nicotine dependence, unspecified, uncomplicated; G47.33 Obstructive sleep apnea (adult) (pediatric); J01.00 Acute maxillary sinusitis, unspecified; E11.51 Type 2 diabetes mellitus with diabetic peripheral angiopathy without gangrene; J32.0 Chronic maxillary sinusitis; G89.29 Other chronic pain; R13.12 Dysphagia, oropharyngeal phase
CPT/HCPCS: 31500; 31720; 36415; 36600; 51702; 70450; 70490; 71045; 71046; 74230; 76770; 80048; 80053; 80069; 81001; 82140; 82274; 82550; 82570; 82607; 82728; 82746; 82803; 82962; 83036; 83540; 83550; 83605; 83880; 84100; 84145; 84156; 84478; 84484; 85014; 85018; 85025; 85027; 85610; 85730; 86850; 86900; 86901; 87040; 87070; 87077; 87186; 87205; 87631; 87640; 87641; 92526; 92610; 92611; 93005; 93306; 93308; 94002; 94003; 94640; 94660; 94668; 94762; 97162; 97166; 97530; 97535; 97802; 97803; 99252; 99285; J7030; J7040; A4216; G0463; J1940